=== PATIENT | male | born 1940 | race Two or more races ===

== ENCOUNTER 2016-05-24 14:16 | Outpatient (RCR) | payer MEDICARE, OTHER ==
[~2016-05-24] VITALS: Ht 167.6 cm; Wt 84.4 kg
[~2016-05-24 14:16] MED LIST: ASCORBIC ACID500 MG ORAL; ASPIRIN-LOW81 MG ORAL; CELLCEPT250 MG ORAL; CEPHALEXIN500 MG ORAL; COLACE100 MG ORAL; CYMBALTA30 MG ORAL; Cyproheptadine Hcl ORAL; DIABETA5 MG ORAL; GLYBURIDE5 MG PO; INVANZ1 GM IVPB; JANUVIA50 MG ORAL; LANTUS SOL100 UNIT/1 SUBQ; LANTUS5 UNITS SUBQ; MAGNESIUM100 MG PO; METHENAMINE HIPP1 GM PO; MIRALAX17 G2 ORAL; MULTIVITAMINS1 EAC2 ORAL; PLAVIX75 MG ORAL; PRAVACHOL20 MG ORAL; PROGRAF1 MG ORAL; ZINC SULFATE220 M1 ORAL
--- NOTE | 2016-06-07 18:41 | Consultation ---
History of Present Illness General Date patient seen: Jun 07, 2016 Time patient seen: 15:05 Chief Complaint: UTI, and sacral and ischial decubitus wound Referring physician: lizet Cheema Reason for Consultation: UTI with MDR E coli, and recurrent sacral wound Present Illness HPI Mr Ralph is a 76 y/o male with complicated PMH, who had chronic mason catheter due to neurogenic bladder and chronic sacral and ischial wounds, was recently hospitalized at [facility] for hyperkalemia and worsening renal failure, he was followed by the heart transplant team during his hospitalization, he stayed couple of weeks at the hospital, and his sacral and ischial wounds got worse and bigger, at the time he was discharged home, tuesday he developed fever 100.8 as per his sone, and he had urine analysis and culture which grew MDR E coli, so I was asked by the plastic surgeon for antibiotics recommendation for both his UTI, and recurrent sacral and ischial wounds, with possible underlying osteomyelitis. Allergies: Coded Allergies: ADHESIVE TAPE (Verified Allergy, Unknown, Rash, 05/27/16) PLASTIC TAPE-COPIED FROM UNCODED SECTION PROCAINE (Verified Allergy, Unknown, Rash, 08/19/14) COPIED FRON UNCODED Medication History Scheduled Ascorbic Acid* (Ascorbic Acid*), 500 MG ORAL TWICE A DAY Aspirin (Aspirin EC), 81 MG ORAL DAILY, (Reported) Clopidogrel Bisulfate* (Plavix*), 75 MG ORAL DAILY, (Reported) Docusate Sodium* (Colace*), 100 MG ORAL TID Duloxetine Hcl* (Cymbalta*), 30 MG ORAL DAILY, (Reported) Glyburide* (Diabeta*), 10 MG ORAL BIAC, (Reported) Insulin Glargine (Lantus), 26 SUBQ DA, (Reported) Insulin Glargine (Lantus), 26 ML SUBQ BEDTIME, (Reported) Magnesium Amino Acid Chelate (Magnesium), 200 MG PO BID, (Reported) Methenamine Hippurate (Methenamine Hippurate), 10 MG PO BID, (Reported) Multivitamins* (Multivitamins*), 1 TAB ORAL DAILY Mycophenolate Mofetil (Cellcept), 500 MG ORAL BID, (Reported) Pravastatin Sod* (Pravachol*), 20 MG ORAL BEDTIME, (Reported) Sitagliptin (Januvia), 50 MG ORAL DAILY, (Reported) Tacrolimus (Prograf), 1 MG ORAL BID, (Reported) Zinc Sulfate (Zinc Sulfate*), 220 MG ORAL DAILY [Cyproheptadine Hcl], 4 MG ORAL THREE TIMES A DAY Scheduled PRN Polyethylene Glycol 3350* (Miralax*), 17 GM ORAL HSPRN PRN for Constipation Patient History History Provided By: Family Member Healthcare decision maker Resuscitation status Advanced Directive on File Past Medical/Surgical History Past Medical/Surgical History: (1) Decubital ulcer (2) UTI (lower urinary tract infection) (3) CKD (chronic kidney disease) (4) Diabetic nephropathy (5) Anemia (6) History of heart transplant (7) Status post skin flap graft (8) Leg osteomyelitis, right (9) PVD (peripheral vascular disease) Review of Systems Constitutional: Reports: fever Eye: Denies: acuity changes, blurred vision, discharge, double vision, eye pain , no symptoms, nose congestion, nose pain, other, see HPI, tearing ENT: Denies: ear discharge, ear pain, hearing loss, mouth pain, nasal discharge , no symptoms, nose congestion, nose pain, other, see HPI, throat pain, throat swelling Respiratory: Denies: ORTIZ, cough, no symptoms, orthopnea, other, see HPI, shortness of breath, sputum, stridor, wheezing Cardiovascular: Denies: PND, chest pain, edema, no symptoms, other, palpitations, see HPI, syncope Gastrointestinal: Denies: abdominal pain, constipation, diarrhea, hematemesis, melena, nausea, no symptoms, other, see HPI, vomiting Genitourinary: Reports: dysuria, pain Musculoskeletal: Reports: muscle pain Skin: Reports: other - large sacral and ischial wounds Psychiatric: Denies: HI, SI, anxiety, depressed feelings, emotional problems, hallucinations, no symptoms, other, prior hx, see HPI Neurological: Reports: focal weakness Endocrine: Reports: no symptoms Physical Exam General Appearance: WD/WN, no apparent distress, alert, overweight HEENT: normocephalic, atraumatic, anicteric, mucous membranes moist Neck: non-tender, normal alignment, supple, normal inspection, abnormal alignment Respiratory/Chest: chest wall non-tender, lungs clear, normal breath sounds, no respiratory distress, no accessory muscle use Cardiovascular/Chest: normal peripheral pulses, normal rate, regular rhythm, no gallop/murmur, no JVD Abdomen: normal bowel sounds, non tender, soft, no organomegaly, no mass Genitourinary/Rectal: normal genital exam, mason Extremities: non-tender, no calf tenderness, normal capillary refill Skin Exam: other - large sacral wound stage V with undermining, and left ischial wound too, stage V with exposed bone Assessment/Plan Problem List: (1) UTI (lower urinary tract infection) Assessment & Plan: with MDR E coli sensitive to ceftriaxon, will treat for 7 days with ceftriaxon IM, since E coil is resistant to all oral options ICD Codes: N39.0 - UTI (lower urinary tract infection) SNOMED: [id number] (2) Decubital ulcer Assessment & Plan: recommend surgical debridement and deep bone biopsy for culture, to guide antibiotics therapy and to rule out osteomyelitis, continue aggressive wound care as per plastic surgeon, will follow on the culture results once available. ICD Codes: L89.90 - Decubital ulcer SNOMED: 877511329 Qualifiers: Qualified Codes: L89.94 - Pressure ulcer of unspecified site, stage 4 (3) CKD (chronic kidney disease) Assessment & Plan: recommend to follow up with tower supervisor and to adjust immunosuppressive drugs as per GFR, D/W son at the bedside ICD Codes: N18.9 - Chronic kidney disease, unspecified SNOMED: 939455254 Status: progressing Jose Mott M.D. Jun 07, 2016 18:41
--- NOTE | 2016-06-14 18:59 | Infectious Diseases Prog Note ---
Assessment/Plan Problems: (1) UTI (lower urinary tract infection) Assessment & Plan: with MDR E coli sensitive to ceftriaxon, will treat for 7 days with ceftriaxon IM, since E coil is resistant to all oral options (2) Decubital ulcer Assessment & Plan: bone biopsy culture grew two different species of E coli, ampicillin sensitive enterococcus faecalis, and pseudomonas aeruginosa , his pathology confirmed acute osteomyelitis, so I will treat him with meropenem 1 gm iv q 12 hrs based on his current CRCL for 6 weeks , for his sacral osteomyelitis, meropenem will cover all the isolates from his bone culture , continue aggressive wound care as per plastic surgeon, recommend to follow weekly labs in order to adjust his meropenem dose since his creatinin clerance is 21.38. will adjust his meropenem dose based on his CRCL which will be done weekly . D/W son and at the bedside who agreed to proceed with antibiotics therapy for now. all risks and benefits were explained to them in details. (3) CKD (chronic kidney disease) Assessment & Plan: recommend to follow up with loan examiner and to adjust immunosuppressive drugs as per GFR, D/W son at the bedside Subjective Constitutional: Denies: anorexia, chills, drenching sweats, fatigue, fever, no symptoms, other HEENT: Denies: congestion, coryza, dysphagia, hearing change, no symptoms, other, visual change Respiratory: Denies: dry cough, no symptoms, other, productive cough, shortness of breath Breasts: Denies: discharge, no symptoms, other, swelling, tenderness Cardiovascular: Denies: chest pain, dyspnea on exertion, no symptoms, other, palpitations Gastrointestinal/Abdominal: Denies: bloating, blood in stool, constipation, diarrhea, nausea, no symptoms, other, vomiting Genitourinary: Denies: dysuria, frequency, hematuria, no symptoms, nocturia, other Neurologic: Reports: numbness, weakness Psychiatric: Denies: anxiety, depression, no symptoms, other Skin: Reports: ulcer Endocrine: Denies: feels cold, feels warm, no symptoms, other Hematologic: Denies: bleeding, no symptoms, other, swollen lymph nodes Allergies: Coded Allergies: ADHESIVE TAPE (Verified Allergy, Unknown, Rash, 05/27/16) PLASTIC TAPE-COPIED FROM UNCODED SECTION PROCAINE (Verified Allergy, Unknown, Rash, 08/19/14) COPIED FRON UNCODED Subjective had large sacral and buttock wounds stage IV, no foul smelling or significant drainage Objective General Appearance: WD/WN, no acute distress HEENT: normocephalic, atraumatic, anicteric, mucous membranes moist Respiratory/Chest: chest wall non-tender, lungs clear, normal breath sounds, no respiratory distress, no accessory muscle use Cardiovascular: normal peripheral pulses, normal rate, regular rhythm, no gallop/murmur, no JVD Abdomen: normal bowel sounds, soft, non tender, no organomegaly, non distended , no mass, no scars Extremities: no cyanosis, no clubbing Skin: ulcers Current Medications Medications (Trade) Dose Ordered Sig/Koffi Route PRN Reason Start Time Stop Time Status Last Admin Dose Admin Sodium Hypochlorite (Dakin's Half Strength) 1 applic DAILY TOPIC 06/15/16 09:00 07/15/16 08:59 Jose Mott M.D. Jun 14, 2016 18:59
[2016-06-15] MEDS ORDERED: Dakin's 0.25% (Half Strength) 16oz TOPIC SCH (09:00)
[2016-07-13] MEDS ORDERED: MEROPENEM-1 GM/50 ML IV (14:59)
[2016-07-13] MEDS ORDERED: NORVASC2.5 MG ORAL (14:59)
[2016-07-13] MEDS ORDERED: CUBICIN RF500 MG IV (14:59)
[2016-07-13] MEDS ORDERED: COUMADIN5 MG ORAL (14:59)
[2016-07-13] MEDS ORDERED: LOVENOX10 M4 SUBQ (14:59)
== END 2016-06-15 | disposition home or self-care (01) ==
LOC: WCC 14:16
DX: L89.154 Pressure ulcer of sacral region, stage 4 (principal); L89.224 Pressure ulcer of left hip, stage 4; L89.894 Pressure ulcer of other site, stage 4; M86.18 Other acute osteomyelitis, other site; I70.238 Atherosclerosis of native arteries of right leg with ulceration of other part of lower leg; R22.32 Localized swelling, mass and lump, left upper limb; L89.312 Pressure ulcer of right buttock, stage 2; L89.892 Pressure ulcer of other site, stage 2; Z89.421 Acquired absence of other right toe(s); Z94.1 Heart transplant status; Z89.612 Acquired absence of left leg above knee; E11.9 Type 2 diabetes mellitus without complications
CPT/HCPCS: 11043; 11044; 11046; 11047; 20245; 87070; 87181; 87205

== ENCOUNTER → 2016-06-14 | Outpatient (CLI) | payer MEDICARE, OTHER ==
[~2016-06-14] VITALS: Ht 30.5 cm; Wt 0.5 kg
[~2016-06-14] MED LIST changes: +BENICAR HCT 401 EACH ORAL; +COUMADIN5 MG ORAL; +CUBICIN RF500 MG IV; +DULCOLAX10 MG RC; +EPOGEN20000 UNI1 SUBQ; +FERROUS SULFAT325 MG ORAL; +HIPREX1 GM PO; +JANUVIA25 MG ORAL; +LOVENOX10 M4 SUBQ; +Lidocaine 1% Plain 30 ml INJ PRN; +MEROPENEM-1 GM/50 ML IV; +MEROPENEM1 GM IV; +MIRTAZAPINE15 M3 ORAL; +NORVASC2.5 MG ORAL; +Sodium Bicarbonate 8.4% 50ml Inj IV PRN; +VENTOLIN HFA18 GM INH
--- NOTE | 2016-06-14 16:07 | Diagnostic Imaging Report ---
Indications: Needs long-term IV access Technique: Ultrasound confirms patent compressible brachial vein. Total sterile technique, including sterile probe cover and sterile gel, hat, mask,, sterile gown, large sterile drape, and preparation with 2% chlorhexidine utilized. Local anesthesia with 1% lidocaine. Under real-time ultrasound guidance, puncture brachial vein using 21-gauge needle, documented and archived, passage 0.018 guidewire under direct fluoroscopy, which was used to determine appropriate catheter length, exchange for 5 Tajik peel-away sheath. 5 Taj[place] Bard dual-lumen power PICC cut to 44 cm. It was inserted through the peel-away sheath. Peel-away sheath and guidewire removed. Catheter fixed to the skin. Both catheter ports aspirated and flushed. Patient tolerated procedure well, without immediate complication. Digital radiograph documents satisfactory catheter tip position, at the cavoatrial junction. Total fluoroscopy time 0.5 minutes. Total dose area product 9.9 dGycm2 Impression: Successful placement of left PICC under sonographic and fluoroscopic guidance, as described above.
== END | disposition home or self-care (01) ==
LOC: RAD 13:19
DX: L08.9 Local infection of the skin and subcutaneous tissue, unspecified (principal); Z79.899 Other long term (current) drug therapy
CPT/HCPCS: 36569; 76937; J2001; J3490

== ENCOUNTER 2016-06-17 18:02 | Inpatient (IN) | payer MEDICARE, OTHER ==
[~2016-06-17] VITALS: Ht 172.7 cm; Wt 87.5 kg
[~2016-06-17 18:02] MED LIST changes: -BENICAR HCT 401 EACH ORAL; -COUMADIN5 MG ORAL; -CUBICIN RF500 MG IV; -DULCOLAX10 MG RC; -EPOGEN20000 UNI1 SUBQ; -FERROUS SULFAT325 MG ORAL; -HIPREX1 GM PO; -JANUVIA25 MG ORAL; -LOVENOX10 M4 SUBQ; -Lidocaine 1% Plain 30 ml INJ PRN; -MEROPENEM-1 GM/50 ML IV; -MEROPENEM1 GM IV; -MIRTAZAPINE15 M3 ORAL; -NORVASC2.5 MG ORAL; -Sodium Bicarbonate 8.4% 50ml Inj IV PRN; -VENTOLIN HFA18 GM INH
[2016-06-17 18:58] VITALS: BP 93/52
[2016-06-17 19:21] LABS: MEAN CORPUSCULAR HEMOGLOBIN 28.6 PG (27.0-31.0); MEAN CORPUSCULAR HGB CONC 29.1 G/DL (32.0-36.0); MEAN CORPUSCULAR VOLUME 98 FL (80-99); MEAN PLATELET VOLUME 4.9 FL (6.5-10.1); PLATELET COUNT 321 K/UL (150-450); RED BLOOD COUNT 2.37 M/UL (4.70-6.10); RED CELL DISTRIBUTION WIDTH 17.5 % (11.6-14.8); WHITE BLOOD COUNT 10.1 K/UL (4.8-10.8)
[2016-06-17 19:45] LABS: PROTHROMBIN TIME 10.1 SEC (9.30-11.50)
[2016-06-17 19:57] LABS: TROPONIN I < 0.30 ng/mL (<=0.30)
[2016-06-17 19:59] LABS: ALANINE AMINOTRANSFERASE 16 U/L (3-41); ALBUMIN/GLOBULIN RATIO 1.1 (1.0-2.7); ANION GAP 21 (5-15); ASPARTATE AMINO TRANSFERASE 15 U/L (5-40); CALCIUM 8.4 mg/dL (8.6-10.2); CARBON DIOXIDE 12 mEQ/L (20-30); CHLORIDE 105 mEQ/L (98-107); CREATININE 3.8 mg/dL (0.7-1.2); HEMOLYSIS 2; SODIUM 138 mEQ/L (135-145); TOTAL PROTEIN 5.5 g/dL (6.6-8.7)
[2016-06-17 20:04] LABS: CKMB 3.3 ng/mL (< 6.7)
[2016-06-17 20:07] LABS: POTASSIUM 6.3 mEQ/L (3.4-4.9)
[2016-06-17] MEDS ORDERED: Sodium Polystyrene Sulfonate 15gm Powder ORAL ONE (20:15)
[2016-06-17 20:27] LABS: BASOPHILS % (MANUAL) 1 % (0-2); LYMPHOCYTES % (MANUAL) 16 % (20-45); NEUTROPHILS % (MANUAL) 83 % (45-75); TOTAL CELLS COUNTED 100
[2016-06-17 20:28] LABS: BAND NEUTROPHILS % (MANUAL) 0 % (0-8); EOSINOPHILS % (MANUAL) 0 % (0-3); HYPOCHROMASIA 2+; MACROCYTES 1+; PLATELET ESTIMATE ADEQUATE; PLATELET MORPHOLOGY NORMAL; POLYCHROMASIA 1+
[2016-06-17 20:29] LABS: ANISOCYTOSIS 2+
[2016-06-17 21:35] VITALS: BP 124/63
[2016-06-17 21:50] VITALS: BP 114/57
[2016-06-17] MEDS ORDERED: Miralax 17gm pkt ORAL PRN (22:30)
[2016-06-17] MEDS ORDERED: Morphine Sulfate 2mg/ml Inj IVP PRN (22:30)
[2016-06-17] MEDS ORDERED: Zolpidem 5mg tab ORAL PRN (22:30)
[2016-06-17] MEDS ORDERED: Mylanta II UD 30ml ORAL PRN (22:30)
--- NOTE | 2016-06-17 22:35 | Emergency Room Report ---
History of Present Illness General Chief Complaint: Abnormal Labs Source: Patient, Family Member Present Illness HPI 76-year-old male presents ED for evaluation. Family is at bedside states that patient was sent for abnormal labs. Had blood drawn yesterday at home. Patient has PICC line in place and is receiving antibiotics at home for treatment of osteomyelitis. Patient was told that his potassium was high his creatinine was high at his hemoglobin was low. Patient denies any complaints at this time. Denies any chest pain shortness of breath. Denies any fevers or chills. Denies any pain. No other aggravating relieving factors. Denies any other associated symptoms Allergies: Coded Allergies: ADHESIVE TAPE (Verified Allergy, Unknown, Rash, 05/27/16) PLASTIC TAPE-COPIED FROM UNCODED SECTION PROCAINE (Verified Allergy, Unknown, Rash, 08/19/14) COPIED FRON UNCODED Patient History Past Medical History: DM, HTN, ND, asthma, other - osteomyelitis Past Surgical History: none Pertinent Family History: none Social History: Denies: alcohol use, drug use, smoking Immunizations: UTD Reviewed Nursing Documentation: PMH: Agreed, PSxH: Agreed Nursing Documentation-PMH Hx Cardiac Problems: Yes - HEART TRANSPLANT, MULTIPLE BIPASS, DOUBLE AMPUTEE Hx Hypertension: Yes 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 Hx Asthma: Yes Hx Diabetes: Yes Hx Cancer: No Hx Gastrointestinal Problems: Yes Hx Neurological Problems: Yes Review of Systems All Other Systems: negative except mentioned in HPI Physical Exam Vital Signs Date Time Temp Pulse Resp B/P Pulse Ox O2 Delivery O2 Flow Rate FiO2 06/17/16 18:01 70 18 130/60 06/17/16 18:58 97.0 100 Room Air Sp02 EP Interpretation: reviewed, normal General Appearance: no apparent distress, alert, GCS 15, non-toxic, obese Head: normocephalic, atraumatic Eyes: bilateral eye PERRL, bilateral eye normal inspection ENT: hearing grossly normal, normal pharynx, no angioedema, normal voice Neck: full range of motion, supple/symm/no masses Respiratory: chest non-tender, lungs clear, normal breath sounds, speaking full sentences Cardiovascular #1: regular rate, rhythm, no edema Cardiovascular #2: 2+ carotid (R), 2+ carotid (L), 2+ radial (R), 2+ radial (L) , 2+ dorsalis pedis (R), 2+ dorsalis pedis (L) Gastrointestinal: normal bowel sounds, non tender, soft, non-distended, no guarding, no rebound Rectal: deferred Genitourinary: normal inspection, no CVA tenderness Musculoskeletal: back normal, gait/station normal, normal range of motion, non- tender Neurologic: alert, oriented x3, responsive, motor strength/tone normal, sensory intact, speech normal Psychiatric: judgement/insight normal, memory normal, mood/affect normal, no suicidal/homicidal ideation Reflexes: 3+ bicep (R), 3+ bicep (L), 3+ tricep (R), 3+ tricep (L), 3+ knee (R) , 3+ knee (L) Skin: normal color, no rash, warm/dry, well hydrated Lymphatic: no adenopathy Procedures Critical Care Time Critical Care Time i. I feel this is a highly complex case requiring extensive working including EKG/Rhythm strip, Xray/CT/US, Blood/urine lab work, repeat exams while in ED, and administration of strong opiates/narcotics for pain control, admission to hospital or close patient follow up. Total time: 30 min bedside evaluation and treatment excludes procedures (EKG). Reason for critical care: Anemia, hyperkalemia Possible complications: hypotension, hypertension, ND, shock, arrhythmias, metabolic acidosis, end organ damage, respiratory failure. Interventions: Labs, EKG, chest x-ray. Insulin/D50. PRBCs transfusion Course: Patient sent for abnormal labs. Potassium is 6.3, creatinine is 3.8, hemoglobin is 6.8. Patient given insulin/D50. PRBCs ordered. Consultations: nursing staff, EMS, family Performed by: Dr Hamlin Tolerated well condition = serious j. because of unstable vital signs this patient had a condition that could potentially threaten life or limb. I feel this is a critical patient who required my full attention while patient was considered critical. Total Critical Care Time excluding procedures was greater than 35 minutes Medical Decision Making Diagnostic Impression: Primary Impression: Hyperkalemia, diminished renal excretion Additional Impressions: ARF (acute renal failure) Qualified Codes: N17.9 - Acute kidney failure, unspecified Anemia Qualified Codes: D64.9 - Anemia, unspecified ER Course Hospital Course 76-year-old male referred to ED for abnormal labs. Differential diagnoses include: anemia, ARF, hyperkalemia Clinical course Patient placed on stretcher. After initial history and physical I ordered labs including CBC and type and screen. Labs- hemoglobin 6.8, Cr 3.8, K 6.3. EKG no ischemic changes no evidence of hyperkalemia Chest [id number] wires no acute process Patient given insulin/D50. Patient refused Kayexalate. PRBCs ordered and started and emergency room Case discussed with PMD Dr. Hahn and agreed to admit the patient Diagnosis - hyperkalemia, ARF, anemia Admitted to telemetry in serious condition Labs Test 06/17/16 18:45 White Blood Count 10.1 K/UL (4.8-10.8) Red Blood Count 2.37 M/UL (4.70-6.10) Hemoglobin 6.8 G/DL (14.2-18.0) Hematocrit 23.3 % (42.0-52.0) Mean Corpuscular Volume 98 FL (80-99) Mean Corpuscular Hemoglobin 28.6 PG (27.0-31.0) Mean Corpuscular Hemoglobin Concent 29.1 G/DL (32.0-36.0) Red Cell Distribution Width 17.5 % (11.6-14.8) Platelet Count 321 K/UL (150-450) Mean Platelet Volume 4.9 FL (6.5-10.1) Neutrophils (%) (Auto) % (45.0-75.0) Lymphocytes (%) (Auto) % (20.0-45.0) Monocytes (%) (Auto) % (1.0-10.0) Eosinophils (%) (Auto) % (0.0-3.0) Basophils (%) (Auto) % (0.0-2.0) Differential Total Cells Counted 100 Neutrophils % (Manual) 83 % (45-75) Lymphocytes % (Manual) 16 % (20-45) Monocytes % (Manual) 0 % (1-10) Eosinophils % (Manual) 0 % (0-3) Basophils % (Manual) 1 % (0-2) Band Neutrophils 0 % (0-8) Platelet Estimate Adequate Platelet Morphology Normal Polychromasia 1+ Hypochromasia 2+ Anisocytosis 2+ Macrocytosis 1+ Prothrombin Time 10.1 SEC (9.30-11.50) Prothromb Time International Ratio 1.0 (0.9-1.1) Activated Partial Thromboplast Time 37 SEC (23-33) Sodium Level 138 mEQ/L (135-145) Potassium Level 6.3 mEQ/L (3.4-4.9) Chloride Level 105 mEQ/L (98-107) Carbon Dioxide Level 12 mEQ/L (20-30) Anion Gap 21 (5-15) Blood Urea Nitrogen 83 mg/dL (7-23) Creatinine 3.8 mg/dL (0.7-1.2) Estimat Glomerular Filtration Rate mL/min (>60) Glucose Level 184 mg/dL (74-106) Calcium Level 8.4 mg/dL (8.6-10.2) Total Bilirubin < 0.2 mg/dL (0.0-1.2) Aspartate Amino Transf (AST/SGOT) 15 U/L (5-40) Alanine Aminotransferase (ALT/SGPT) 16 U/L (3-41) Alkaline Phosphatase 98 U/L (40-129) Total Creatine Kinase 154 U/L (38-174) Creatine Kinase MB 3.3 ng/mL (< 6.7) Creatine Kinase MB Relative Index 2.1 Troponin I < 0.30 ng/mL (<=0.30) Total Protein 5.5 g/dL (6.6-8.7) Albumin 2.9 g/dL (3.5-5.2) Globulin 2.6 g/dL Albumin/Globulin Ratio 1.1 (1.0-2.7) EKG Diagnostic Results Rate: normal Rhythm: NSR ST Segments: no acute changes ASA given to the pt in ED: No Rhythm Strip Diag. Results EP Interpretation: yes Rhythm: NSR, no PVC's, no ectopy Chest X-Ray Diagnostic Results EP Interpretation: Yes Findings: no consolidation, no effusion, no pneumothorax, no acute cardiopulmonary disease, other - sternotomy wires Number of Views: 1 Last Vital Signs Date Time Temp Pulse Resp B/P Pulse Ox O2 Delivery O2 Flow Rate FiO2 06/17/16 21:50 97.4 89 24 114/57 97 Room Air Status: improved Disposition: ADMITTED INPATIENT Condition: Serious Referrals: SHWETA SARKAR MD (PCP) ZENA HAMLIN M.D. Jun 17, 2016 22:35
[2016-06-18] VITALS: BP 122/69
[2016-06-18] MEDS ORDERED: DULCOLAX10 MG RC (00:57)
[2016-06-18] MEDS ORDERED: MIRTAZAPINE15 M3 ORAL (00:57)
[2016-06-18] MEDS ORDERED: MEROPENEM1 GM IV (00:57)
[2016-06-18] MEDS ORDERED: EPOGEN20000 UNI1 SUBQ (00:57)
[2016-06-18] MEDS ORDERED: VENTOLIN HFA18 GM INH (00:57)
[2016-06-18] MEDS ORDERED: JANUVIA25 MG ORAL (00:57)
[2016-06-18] MEDS ORDERED: FERROUS SULFAT325 MG ORAL (00:57)
[2016-06-18] MEDS ORDERED: BENICAR HCT 401 EACH ORAL (00:57)
[2016-06-18] MEDS ORDERED: HIPREX1 GM PO (00:57)
[2016-06-18 04:30] VITALS: BP 106/70
[2016-06-18] MEDS: NovoLOG Insulin Flexpen SUBQ SCH ×4 (06:30→21:22)
[2016-06-18 07:06] LABS: APPEARANCE,URINE CLOUDY; KETONES,URINE NEGATIVE (NEGATIVE); LEUKOCYTE ESTERASE ,URINE 2+ (NEGATIVE); NITRITE,URINE NEGATIVE (NEGATIVE); PH,URINE 5 (4.5-8.0); PROTEIN,URINE 2+ (NEGATIVE); UROBILINOGEN,URINE NORMAL MG/DL (0.0-1.0)
[2016-06-18 07:23] LABS: BACTERIA,URINE FEW /HPF; SQUAMOUS EPITHELIAL CELL,UR FEW /LPF (NONE/OCC); WBC,URINE 20-30 /HPF (0 - 0)
[2016-06-18 07:38] LABS: MEAN CORPUSCULAR HEMOGLOBIN 28.6 PG (27.0-31.0); MEAN CORPUSCULAR HGB CONC 30.3 G/DL (32.0-36.0); MEAN CORPUSCULAR VOLUME 94 FL (80-99); MEAN PLATELET VOLUME 5.5 FL (6.5-10.1); PLATELET COUNT 290 K/UL (150-450); RED BLOOD COUNT 2.73 M/UL (4.70-6.10); RED CELL DISTRIBUTION WIDTH 16.4 % (11.6-14.8); WHITE BLOOD COUNT 8.8 K/UL (4.8-10.8)
[2016-06-18 08:19] LABS: LACTATE DEHYDROGENASE 179 U/L (135-230); PHOSPHORUS 5.2 mg/dL (2.5-4.8); URIC ACID 7.3 mg/dL (3.0-7.5)
[2016-06-18 08:21] LABS: FREE T3 1.9 pg/mL (2.3-4.2)
[2016-06-18 08:24] LABS: ALANINE AMINOTRANSFERASE 15 U/L (3-41); ALBUMIN/GLOBULIN RATIO 1.1 (1.0-2.7); ANION GAP 20 (5-15); ASPARTATE AMINO TRANSFERASE 14 U/L (5-40); CALCIUM 8.5 mg/dL (8.6-10.2); CARBON DIOXIDE 13 mEQ/L (20-30); CHLORIDE 109 mEQ/L (98-107); CREATININE 3.7 mg/dL (0.7-1.2); HEMOLYSIS 10; SODIUM 142 mEQ/L (135-145); TOTAL PROTEIN 5.3 g/dL (6.6-8.7)
[2016-06-18 08:25] LABS: POTASSIUM 6.2 mEQ/L (3.4-4.9)
[2016-06-18 08:27] VITALS: BP 97/65
[2016-06-18] MEDS: Mycophenolate 250mg cap ORAL SCH ×2 (08:28→18:22)
[2016-06-18 08:48] LABS: HEMOLYSIS 11; IRON 36 ug/dL (59-158); TOTAL IRON BINDING CAPACITY 149 ug/dL (250-400)
[2016-06-18 08:50] LABS: ERYTHROCYTE SEDIMENTATION RATE 125 MM/HR (0-20)
[2016-06-18 09:04] LABS: ANISOCYTOSIS 1+; BAND NEUTROPHILS % (MANUAL) 0 % (0-8); BASOPHILS % (MANUAL) 0 % (0-2); EOSINOPHILS % (MANUAL) 2 % (0-3); HYPOCHROMASIA 1+; LYMPHOCYTES % (MANUAL) 4 % (20-45); NEUTROPHILS % (MANUAL) 88 % (45-75); PLATELET ESTIMATE ADEQUATE; PLATELET MORPHOLOGY NORMAL; TOTAL CELLS COUNTED 100
--- NOTE | 2016-06-18 09:50 | Diagnostic Imaging Report ---
Indication: Chest pain Technique: One view of the chest Comparison: 07/14/2015 Findings: Lungs and pleural spaces are clear. Calcified granuloma is again demonstrated the left lung base. Left arm PICC is present. Prior CABG Impression: No acute process. Findings as noted This agrees with the preliminary interpretation provided by the emergency room physician
--- NOTE | 2016-06-18 10:19 | History and Physical ---
History of Present Illness General Date patient seen: Jun 18, 2016 Time patient seen: 09:00 Reason for Hospitalization: Abnormal Labs Present Illness HPI 76-year-old male presented to ED for evaluation due to abnormal labs ( anemia, hyperkalemia) patient had blood drwan at home by home health nursing and foudn abnormal resulrts , thus aptietnw as sent for evlaution patient has PICC lien for treatment of osteomyelitis In ER found HH 6.8/23.3 K-6.3 BUN/Creat -83/3.8 patient was given Kayexalate , ordered blood transfusion, given 1 L of fluids and was transferred to [facility] for further management patient with underlying history of heart transplant, DM, PVF, bilateral amputee patents denies chest pain, SOB, palpitations dizziness no n/v/no abdominal pain no fevers, no chills no burning on urination, no difficulties with urination, UA with pyuria, but no bacteria Allergies: Coded Allergies: ADHESIVE TAPE (Verified Allergy, Unknown, Rash, 05/27/16) PLASTIC TAPE-COPIED FROM UNCODED SECTION PROCAINE (Verified Allergy, Unknown, Rash, 08/19/14) COPIED FRON UNCODED Medication History Scheduled Ascorbic Acid* (Ascorbic Acid*), 500 MG ORAL TWICE A DAY Aspirin (Aspirin EC), 81 MG ORAL DAILY, (Reported) Clopidogrel Bisulfate* (Plavix*), 75 MG ORAL DAILY, (Reported) Duloxetine Hcl* (Cymbalta*), 30 MG ORAL DAILY, (Reported) Epoetin Mars (Epogen), 20,000 UNIT SUBQ 2XW, (Reported) Ferrous Sulfate* (Ferrous Sulfate*), 325 MG ORAL DAILY, (Reported) Glyburide* (Diabeta*), 10 MG ORAL BIAC, (Reported) Insulin Glargine (Lantus), 26 SUBQ DA, (Reported) Insulin Glargine (Lantus), 26 ML SUBQ BEDTIME, (Reported) Magnesium Amino Acid Chelate (Magnesium), 200 MG PO BID, (Reported) Meropenem (Meropenem), 2 GM IV BID, (Reported) Methenamine Hippurate (Methenamine Hippurate), 10 MG PO BID, (Reported) Methenamine Hippurate (Hiprex), 1 GM PO BID, (Reported) Mirtazapine* (Mirtazapine*), 15 MG ORAL BEDTIME, (Reported) Multivitamins* (Multivitamins*), 1 TAB ORAL DAILY Mycophenolate Mofetil (Cellcept), 500 MG ORAL BID, (Reported) Olmesartan/Hydrochlorothiazide 40-12.5MG (Benicar Hct 40-12.5 Mg Tablet), 1 TAB ORAL BID, (Reported) Pravastatin Sod* (Pravachol*), 20 MG ORAL BEDTIME, (Reported) Sitagliptin (Januvia), 50 MG ORAL DAILY, (Reported) Sitagliptin* (Januvia*), 50 MG ORAL DAILY, (Reported) Tacrolimus (Prograf), 1 MG ORAL BID, (Reported) Zinc Sulfate (Zinc Sulfate*), 220 MG ORAL DAILY [Cyproheptadine Hcl], 4 MG ORAL THREE TIMES A DAY Scheduled PRN Albuterol Sulfate (Ventolin Hfa), 2 PUFFS INH EVERY 6 HOURS PRN for Shortness of Breath, (Reported) Bisacodyl (Dulcolax), 10 MG RC for Constipation, (Reported) Polyethylene Glycol 3350* (Miralax*), 17 GM ORAL HSPRN PRN for Constipation Discontinued Medications Docusate Sodium* (Colace*), 100 MG ORAL TID Discontinued Reason: Medication dose changed Patient History Healthcare decision maker Resuscitation status Full Code Advanced Directive on File Past Medical/Surgical History Past Medical/Surgical History: (1) CKD (chronic kidney disease) (2) PVD (peripheral vascular disease) (3) Diabetic nephropathy (4) CKD (chronic kidney disease) (5) Acute blood loss anemia (6) Hyperkalemia, diminished renal excretion (7) Anemia (8) Heart transplant status (9) Status post skin flap graft Review of Systems Constitutional: Reports: no symptoms Eye: Reports: no symptoms ENT: Reports: no symptoms Respiratory: Reports: no symptoms Cardiovascular: Reports: no symptoms, other - hx of heart transplant , PVD Gastrointestinal: Reports: constipation Genitourinary: Reports: see HPI Musculoskeletal: Reports: other - bilateral amputee Skin: Reports: other - decub, osteo Psychiatric: Reports: no symptoms Neurological: Reports: no symptoms Endocrine: Reports: other - diabetes Hematologic/Lymphatic: Reports: anemia, see HPI Physical Exam General Appearance: no apparent distress, alert Lines, tubes and drains: PICC HEENT: normocephalic, atraumatic, anicteric, mucous membranes moist Neck: non-tender, supple Respiratory/Chest: chest wall non-tender, lungs clear, no respiratory distress , no accessory muscle use Cardiovascular/Chest: normal rate - SR on tele, regular rhythm Abdomen: normal bowel sounds, non tender, soft - obese Genitourinary/Rectal: mason Extremities: other - 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 Skin Exam: other Neurologic: abnormal gait - bedridden, alert, oriented x 3, responsive Musculoskeletal: other - bilateral amputee Last 24 Hour Vital Signs Date Time Temp Pulse Resp B/P Pulse Ox O2 Delivery O2 Flow Rate FiO2 06/18/16 08:27 97.0 87 18 97/65 96 Room Air 06/18/16 04:30 97.0 98 20 106/70 97 Room Air 06/18/16 00:00 97.0 91 20 122/69 96 Room Air 06/18/16 00:00 84 06/17/16 22:40 97.4 89 24 114/57 97 Room Air 06/17/16 21:50 97.4 89 24 114/57 97 Room Air 06/17/16 21:35 97.0 89 17 124/63 99 Room Air 06/17/16 18:58 97.0 90 15 93/52 100 Room Air 06/17/16 18:01 70 18 130/60 Intake and Output 06/17/16 06/18/16 19:00 07:00 Intake Total 100 ml 1120 ml Output Total 850 ml Balance 100 ml 270 ml Intake Oral 100 ml 120 ml IV Total 750 ml Blood Product 250 ml Output Urine Total 850 ml Laboratory Tests Test 06/17/16 18:45 06/18/16 04:00 06/18/16 06:00 White Blood Count 10.1 K/UL (4.8-10.8) 8.8 K/UL (4.8-10.8) Red Blood Count 2.37 M/UL (4.70-6.10) L 2.73 M/UL (4.70-6.10) L Hemoglobin 6.8 G/DL (14.2-18.0) *L 7.8 G/DL (14.2-18.0) L Hematocrit 23.3 % (42.0-52.0) L 25.8 % (42.0-52.0) L Mean Corpuscular Volume 98 FL (80-99) 94 FL (80-99) Mean Corpuscular Hemoglobin 28.6 PG (27.0-31.0) 28.6 PG (27.0-31.0) Mean Corpuscular Hemoglobin Concent 29.1 G/DL (32.0-36.0) L 30.3 G/DL (32.0-36.0) L Red Cell Distribution Width 17.5 % (11.6-14.8) H 16.4 % (11.6-14.8) H Platelet Count 321 K/UL (150-450) 290 K/UL (150-450) Mean Platelet Volume 4.9 FL (6.5-10.1) L 5.5 FL (6.5-10.1) L Neutrophils (%) (Auto) % (45.0-75.0) % (45.0-75.0) Lymphocytes (%) (Auto) % (20.0-45.0) % (20.0-45.0) Monocytes (%) (Auto) % (1.0-10.0) % (1.0-10.0) Eosinophils (%) (Auto) % (0.0-3.0) % (0.0-3.0) Basophils (%) (Auto) % (0.0-2.0) % (0.0-2.0) Differential Total Cells Counted 100 100 Neutrophils % (Manual) 83 % (45-75) H 88 % (45-75) H Lymphocytes % (Manual) 16 % (20-45) L 4 % (20-45) L Monocytes % (Manual) 0 % (1-10) L 6 % (1-10) Eosinophils % (Manual) 0 % (0-3) 2 % (0-3) Basophils % (Manual) 1 % (0-2) 0 % (0-2) Band Neutrophils 0 % (0-8) 0 % (0-8) Platelet Estimate Adequate Adequate Platelet Morphology Normal Normal Polychromasia 1+ Hypochromasia 2+ 1+ Anisocytosis 2+ 1+ Macrocytosis 1+ Prothrombin Time 10.1 SEC (9.30-11.50) Prothromb Time International Ratio 1.0 (0.9-1.1) Activated Partial Thromboplast Time 37 SEC (23-33) H Sodium Level 138 mEQ/L (135-145) 142 mEQ/L (135-145) Potassium Level 6.3 mEQ/L (3.4-4.9) *H 6.2 mEQ/L (3.4-4.9) *H Chloride Level 105 mEQ/L (98-107) 109 mEQ/L (98-107) H Carbon Dioxide Level 12 mEQ/L (20-30) L 13 mEQ/L (20-30) L Anion Gap 21 (5-15) H 20 (5-15) H Blood Urea Nitrogen 83 mg/dL (7-23) H 77 mg/dL (7-23) H Creatinine 3.8 mg/dL (0.7-1.2) H 3.7 mg/dL (0.7-1.2) H Estimat Glomerular Filtration Rate mL/min (>60) mL/min (>60) Glucose Level 184 mg/dL (74-106) H 54 mg/dL (74-106) #L Calcium Level 8.4 mg/dL (8.6-10.2) L 8.5 mg/dL (8.6-10.2) L Total Bilirubin < 0.2 mg/dL (0.0-1.2) < 0.2 mg/dL (0.0-1.2) Aspartate Amino Transf (AST/SGOT) 15 U/L (5-40) 14 U/L (5-40) Alanine Aminotransferase (ALT/SGPT) 16 U/L (3-41) 15 U/L (3-41) Alkaline Phosphatase 98 U/L (40-129) 88 U/L (40-129) Total Creatine Kinase 154 U/L (38-174) 115 U/L (38-174) Creatine Kinase MB 3.3 ng/mL (< 6.7) Creatine Kinase MB Relative Index 2.1 Troponin I < 0.30 ng/mL (<=0.30) Total Protein 5.5 g/dL (6.6-8.7) L 5.3 g/dL (6.6-8.7) L Albumin 2.9 g/dL (3.5-5.2) L 2.8 g/dL (3.5-5.2) L Globulin 2.6 g/dL 2.5 g/dL Albumin/Globulin Ratio 1.1 (1.0-2.7) 1.1 (1.0-2.7) Urine Color Pale yellow Urine Appearance Cloudy Urine pH 5 (4.5-8.0) Urine Specific [place] 1.015 (1.005-1.035) Urine Protein 2+ (NEGATIVE) H Urine Glucose (UA) Negative (NEGATIVE) Urine Ketones Negative (NEGATIVE) Urine Occult Blood 3+ (NEGATIVE) H Urine Nitrite Negative (NEGATIVE) Urine Bilirubin Negative (NEGATIVE) Urine Urobilinogen Normal MG/DL (0.0-1.0) Urine Leukocyte Esterase 2+ (NEGATIVE) H Urine RBC 5-10 /HPF (0 - 0) H Urine WBC 20-30 /HPF (0 - 0) H Urine Squamous Epithelial Cells Few /LPF (NONE/OCC) Urine Bacteria Few /HPF (NONE) Urine Eosinophils None seen Urine Osmolality Pending Urine Random Sodium 87 mmol/L Urine Random Chloride 64 mmol/L Urine Potassium Timed 18 mmol/L Erythrocyte Sedimentation Rate 125 MM/HR (0-20) H Reticulocyte Count Pending Plasma/Serum Osmolality Pending Uric Acid 7.3 mg/dL (3.0-7.5) Phosphorus Level 5.2 mg/dL (2.5-4.8) H Magnesium Level 2.0 mg/dL (1.7-2.5) Iron Level 36 ug/dL (59-158) L Total Iron Binding Capacity 149 ug/dL (250-400) L Percent Iron Saturation 24 % (15-50) Unsaturated Iron Binding 113 ug/dL (112-346) Lactate Dehydrogenase 179 U/L (135-230) Carcinoembryonic Antigen 4.0 ng/mL H Vitamin B12 Level 474 pg/mL (211-946) Folate Pending Thyroid Stimulating Hormone (TSH) 3.080 uIU/mL (0.300-4.500) Free Thyroxine 0.88 ng/dL (0.86-1.85) Free Triiodothyronine 1.9 pg/mL (2.3-4.2) L Cortisol Pending Height (Feet): 5 Height (Inches): 8.00 Weight (Pounds): 193 Medications Current Medications Medications (Trade) Dose Ordered Sig/Koffi Route PRN Reason Start Time Stop Time Status Last Admin Dose Admin Acetaminophen (Tylenol) 650 mg Q4H PRN ORAL fever 06/17/16 22:30 07/17/16 22:29 Al Hydroxide/Mg Hydroxide (Mylanta II) 30 ml Q6H PRN ORAL dyspepsia 06/17/16 22:30 07/17/16 22:29 Clopidogrel Bisulfate (Plavix) 75 mg DAILY ORAL 06/18/16 09:00 07/18/16 08:59 06/18/16 08:28 Dextrose (Dextrose 50%) STAT PRN IV Hypoglycemia 06/17/16 22:30 07/17/16 22:29 Insulin Aspart (NovoLOG) BEFORE MEALS AND HS SUBQ 06/18/16 06:30 07/18/16 06:29 Lorazepam (Ativan 2mg/ml 1ml) 0.5 mg Q4H PRN IV For Anxiety 06/17/16 22:30 06/24/16 22:29 Morphine Sulfate (Morphine Sulfate) 1 mg EVERY 4 HOURS PRN IVP For Pain 06/17/16 22:30 06/24/16 22:29 Mycophenolate Mofetil (Cellcept) 500 mg BID ORAL 06/18/16 09:00 07/18/16 08:59 06/18/16 08:28 Ondansetron HCl (Zofran) 4 mg Q6H PRN IVP Nausea & Vomiting 06/17/16 22:30 07/17/16 22:29 Polyethylene Glycol (Miralax) 17 gm HSPRN PRN ORAL Constipation 06/17/16 22:30 07/17/16 22:29 Sodium Polystyrene Sulfonate (Kayexalate) 30 gm ONCE ONCE ORAL 06/18/16 10:30 06/18/16 10:31 Tacrolimus (Prograf) 1 mg BID ORAL 06/18/16 09:00 07/18/16 08:59 06/18/16 08:28 Zolpidem Tartrate (Ambien) 5 mg HSPRN PRN ORAL Insomnia 06/17/16 22:30 07/17/16 22:29 Assessment/Plan Status Narrative ASSESSMENT acute renal failure on chronic kidney disease hyperkalemia acute anemia osteomyelitis DM CAD, s/p heart transplant PVD bilateral amputee PLAN OF CARE tele nephro eval renal US avoid nephrotoxic treat hyperkalemia transfuse additional 1 u PRBC today anemia workup with low iron Venofer x 3 doses, starting tomorrow check stool OB, CEA with mild elevation ID eval and resume abx for osteo wound care plastic surgery to follow pain management bowel regimen BS management with SS of insulin continue Plavix DVT prophylaxis case discussed and evaluated by supervising physician Winston Gannon),Alyssa RODRIGUEZ Jun 18, 2016 10:19
[2016-06-18] MEDS ORDERED: Sodium Polystyrene Sulfonate 15gm Powder ORAL ONE (10:30)
[2016-06-18] MEDS ORDERED: Meropenem 1 GM in NS 110 ML IVPB SCH (10:45)
[2016-06-18 11:09] LABS: PATH BLOOD SMEAR/OMC SENT TO PATHOLOGIST
[2016-06-18 11:18] LABS: RETICULOCYTE COUNT 1.6 % (0.0-2.0)
[2016-06-18 12:00] VITALS: BP 104/79
--- NOTE | 2016-06-18 12:49 | Diagnostic Imaging Report ---
Indication: Abnormal renal function tests Technique: Grayscale and duplex images of the kidneys, retroperitoneum, and bladder were obtained. Comparison:01/22/2015 Findings: Right kidney measures 12.4 cm in length. Left kidney measures 12.7 cm in length. Both kidneys demonstrate normal echogenicity. No hydronephrosis. There are bilateral renal cysts.. Normal inferior vena cava. Bladder is empty, contains a Barakat catheter. No significant change Impression: Negative for hydronephrosis Bilateral renal cysts, also previously described Empty bladder, containing a Barakat catheter.
--- NOTE | 2016-06-18 13:03 | Infectious Diseases Prog Note ---
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 continue local wound care , and off loading. (2) Hyperkalemia, diminished renal excretion Assessment & Plan: due to CKD, on Kayexalate, renal is following (3) Anemia Assessment & Plan: S/P blood transfusion, monitor H&H, need to rule out GI source, recommend GI consult. (4) PVD (peripheral vascular disease) Assessment & Plan: S/P B/L AKA. (5) CKD (chronic kidney disease) Assessment & Plan: avoid nephrotoxic meds, monitor UOP, and renal function, renal is following (6) Heart transplant status Assessment & Plan: recommend to contact his heart transplant team at [place] for further recommendation, and possible transfer to [place] for higher level of care , continue transplant meds , and adjust as per his GFR. Subjective Allergies: Coded Allergies: ADHESIVE TAPE (Verified Allergy, Unknown, Rash, 05/27/16) PLASTIC TAPE-COPIED FROM UNCODED SECTION PENICILLINS (Verified Allergy, Unknown, 06/20/16) PROCAINE (Verified Allergy, Unknown, Rash, 08/19/14) COPIED FRON UNCODED Objective Vital Signs Last 24 Hour Vital Signs Date Time Temp Pulse Resp B/P Pulse Ox O2 Delivery O2 Flow Rate FiO2 06/18/16 12:00 97.0 85 20 104/79 98 Room Air 06/18/16 08:27 97.0 87 18 97/65 96 Room Air 06/18/16 08:00 86 06/18/16 04:30 97.0 98 20 106/70 97 Room Air 06/18/16 00:00 97.0 91 20 122/69 96 Room Air 06/18/16 00:00 84 06/17/16 22:40 97.4 89 24 114/57 97 Room Air 06/17/16 21:50 97.4 89 24 114/57 97 Room Air 06/17/16 21:35 97.0 89 17 124/63 99 Room Air 06/17/16 18:58 97.0 90 15 93/52 100 Room Air 06/17/16 18:01 70 18 130/60 Height (Feet): 5 Height (Inches): 8.00 Weight (Pounds): 193 Laboratory Tests Test 06/17/16 18:45 06/18/16 04:00 06/18/16 06:00 White Blood Count 10.1 K/UL (4.8-10.8) 8.8 K/UL (4.8-10.8) Red Blood Count 2.37 M/UL (4.70-6.10) L 2.73 M/UL (4.70-6.10) L Hemoglobin 6.8 G/DL (14.2-18.0) *L 7.8 G/DL (14.2-18.0) L Hematocrit 23.3 % (42.0-52.0) L 25.8 % (42.0-52.0) L Mean Corpuscular Volume 98 FL (80-99) 94 FL (80-99) Mean Corpuscular Hemoglobin 28.6 PG (27.0-31.0) 28.6 PG (27.0-31.0) Mean Corpuscular Hemoglobin Concent 29.1 G/DL (32.0-36.0) L 30.3 G/DL (32.0-36.0) L Red Cell Distribution Width 17.5 % (11.6-14.8) H 16.4 % (11.6-14.8) H Platelet Count 321 K/UL (150-450) 290 K/UL (150-450) Mean Platelet Volume 4.9 FL (6.5-10.1) L 5.5 FL (6.5-10.1) L Neutrophils (%) (Auto) % (45.0-75.0) % (45.0-75.0) Lymphocytes (%) (Auto) % (20.0-45.0) % (20.0-45.0) Monocytes (%) (Auto) % (1.0-10.0) % (1.0-10.0) Eosinophils (%) (Auto) % (0.0-3.0) % (0.0-3.0) Basophils (%) (Auto) % (0.0-2.0) % (0.0-2.0) Differential Total Cells Counted 100 100 Neutrophils % (Manual) 83 % (45-75) H 88 % (45-75) H Lymphocytes % (Manual) 16 % (20-45) L 4 % (20-45) L Monocytes % (Manual) 0 % (1-10) L 6 % (1-10) Eosinophils % (Manual) 0 % (0-3) 2 % (0-3) Basophils % (Manual) 1 % (0-2) 0 % (0-2) Band Neutrophils 0 % (0-8) 0 % (0-8) Platelet Estimate Adequate Adequate Platelet Morphology Normal Normal Polychromasia 1+ Hypochromasia 2+ 1+ Anisocytosis 2+ 1+ Macrocytosis 1+ Prothrombin Time 10.1 SEC (9.30-11.50) Prothromb Time International Ratio 1.0 (0.9-1.1) Activated Partial Thromboplast Time 37 SEC (23-33) H Sodium Level 138 mEQ/L (135-145) 142 mEQ/L (135-145) Potassium Level 6.3 mEQ/L (3.4-4.9) *H 6.2 mEQ/L (3.4-4.9) *H Chloride Level 105 mEQ/L (98-107) 109 mEQ/L (98-107) H Carbon Dioxide Level 12 mEQ/L (20-30) L 13 mEQ/L (20-30) L Anion Gap 21 (5-15) H 20 (5-15) H Blood Urea Nitrogen 83 mg/dL (7-23) H 77 mg/dL (7-23) H Creatinine 3.8 mg/dL (0.7-1.2) H 3.7 mg/dL (0.7-1.2) H Estimat Glomerular Filtration Rate mL/min (>60) mL/min (>60) Glucose Level 184 mg/dL (74-106) H 54 mg/dL (74-106) #L Calcium Level 8.4 mg/dL (8.6-10.2) L 8.5 mg/dL (8.6-10.2) L Total Bilirubin < 0.2 mg/dL (0.0-1.2) < 0.2 mg/dL (0.0-1.2) Aspartate Amino Transf (AST/SGOT) 15 U/L (5-40) 14 U/L (5-40) Alanine Aminotransferase (ALT/SGPT) 16 U/L (3-41) 15 U/L (3-41) Alkaline Phosphatase 98 U/L (40-129) 88 U/L (40-129) Total Creatine Kinase 154 U/L (38-174) 115 U/L (38-174) Creatine Kinase MB 3.3 ng/mL (< 6.7) Creatine Kinase MB Relative Index 2.1 Troponin I < 0.30 ng/mL (<=0.30) Total Protein 5.5 g/dL (6.6-8.7) L 5.3 g/dL (6.6-8.7) L Albumin 2.9 g/dL (3.5-5.2) L 2.8 g/dL (3.5-5.2) L Globulin 2.6 g/dL 2.5 g/dL Albumin/Globulin Ratio 1.1 (1.0-2.7) 1.1 (1.0-2.7) Urine Color Pale yellow Urine Appearance Cloudy Urine pH 5 (4.5-8.0) Urine Specific [place] 1.015 (1.005-1.035) Urine Protein 2+ (NEGATIVE) H Urine Glucose (UA) Negative (NEGATIVE) Urine Ketones Negative (NEGATIVE) Urine Occult Blood 3+ (NEGATIVE) H Urine Nitrite Negative (NEGATIVE) Urine Bilirubin Negative (NEGATIVE) Urine Urobilinogen Normal MG/DL (0.0-1.0) Urine Leukocyte Esterase 2+ (NEGATIVE) H Urine RBC 5-10 /HPF (0 - 0) H Urine WBC 20-30 /HPF (0 - 0) H Urine Squamous Epithelial Cells Few /LPF (NONE/OCC) Urine Bacteria Few /HPF (NONE) Urine Eosinophils None seen Urine Osmolality Pending Urine Random Sodium 87 mmol/L Urine Random Chloride 64 mmol/L Urine Potassium Timed 18 mmol/L Erythrocyte Sedimentation Rate 125 MM/HR (0-20) H Reticulocyte Count 1.6 % (0.0-2.0) Plasma/Serum Osmolality Pending Uric Acid 7.3 mg/dL (3.0-7.5) Phosphorus Level 5.2 mg/dL (2.5-4.8) H Magnesium Level 2.0 mg/dL (1.7-2.5) Iron Level 36 ug/dL (59-158) L Total Iron Binding Capacity 149 ug/dL (250-400) L Percent Iron Saturation 24 % (15-50) Unsaturated Iron Binding 113 ug/dL (112-346) Lactate Dehydrogenase 179 U/L (135-230) Carcinoembryonic Antigen 4.0 ng/mL H Vitamin B12 Level 474 pg/mL (211-946) Folate Pending Thyroid Stimulating Hormone (TSH) 3.080 uIU/mL (0.300-4.500) Free Thyroxine 0.88 ng/dL (0.86-1.85) Free Triiodothyronine 1.9 pg/mL (2.3-4.2) L Cortisol Pending Current Medications Medications (Trade) Dose Ordered Sig/Koffi Route PRN Reason Start Time Stop Time Status Last Admin Dose Admin Acetaminophen (Tylenol) 650 mg Q4H PRN ORAL fever 06/17/16 22:30 07/17/16 22:29 Al Hydroxide/Mg Hydroxide (Mylanta II) 30 ml Q6H PRN ORAL dyspepsia 06/17/16 22:30 07/17/16 22:29 Clopidogrel Bisulfate (Plavix) 75 mg DAILY ORAL 06/18/16 09:00 07/18/16 08:59 06/18/16 08:28 Dextrose (Dextrose 50%) STAT PRN IV Hypoglycemia 06/17/16 22:30 07/17/16 22:29 Insulin Aspart BEFORE MEALS AND HS SUBQ 06/18/16 06:30 07/18/16 06:29 Iron Sucrose/ Sodium Chloride (Venofer/Sodium Chloride) 60 ml @ 240 mls/hr BEDTIME IVPB 06/19/16 21:00 06/21/16 21:14 Lorazepam (Ativan 2mg/ml 1ml) 0.5 mg Q4H PRN IV For Anxiety 06/17/16 22:30 06/24/16 22:29 Meropenem 500 mg/ Sodium Chloride 55 ml @ 110 mls/hr Q12H IVPB 06/18/16 12:00 06/23/16 11:59 Morphine Sulfate (Morphine Sulfate) 1 mg EVERY 4 HOURS PRN IVP For Pain 06/17/16 22:30 06/24/16 22:29 Mycophenolate Mofetil (Cellcept) 500 mg BID ORAL 06/18/16 09:00 07/18/16 08:59 06/18/16 08:28 Ondansetron HCl (Zofran) 4 mg Q6H PRN IVP Nausea & Vomiting 06/17/16 22:30 07/17/16 22:29 Polyethylene Glycol (Miralax) 17 gm HSPRN PRN ORAL Constipation 06/17/16 22:30 07/17/16 22:29 Tacrolimus (Prograf) 1 mg BID ORAL 06/18/16 09:00 07/18/16 08:59 06/18/16 08:28 Zolpidem Tartrate (Ambien) 5 mg HSPRN PRN ORAL Insomnia 06/17/16 22:30 07/17/16 22:29 Jose Mott M.D. Jun 18, 2016 13:03
--- NOTE | 2016-06-18 13:26 | Consultation ---
Consult Note Consult Note asked to evaluate for renal failure and hyperkalemia- 76-year-old male presents ED for evaluation. Family is at bedside states that patient was sent for abnormal labs. Had blood drawn yesterday at home. Patient has PICC line in place and is receiving antibiotics at home for treatment of osteomyelitis. Patient was told that his potassium was high his creatinine was high at his hemoglobin was low. Patient denies any complaints at this time. Denies any chest pain shortness of breath. Denies any fevers or chills. Denies any pain. No other aggravating relieving factors. Denies any other associated symptoms Allergies: ADHESIVE TAPE (Verified Allergy, Unknown, Rash, 05/27/16) PLASTIC TAPE-COPIED FROM UNCODED SECTION PROCAINE (Verified Allergy, Unknown, Rash, 08/19/14) COPIED FRON UNCODED Past Medical History: DM, HTN, NM, asthma, other - osteomyelitis Hx Cardiac Problems: Yes - HEART TRANSPLANT, MULTIPLE BIPASS, DOUBLE AMPUTEE Hx Hypertension: Yes Hx Asthma: Yes Hx Diabetes: Yes Hx Gastrointestinal Problems: Yes Hx Neurological Problems: Yes Patient interviewed and examined- data reviewed- Discussed with son and [employer] . Assessment/Plan status; Acute Renal Failure- Superimposed on CRI due to DM / HTN PVD s/p amputation- Severe Anemia s/p Heart transplant sacral decub plan: Hydrate- transfuse- family refuse kayexelate- wound care- monitor renal parameters- avoid nephrotoxics BRIJESH CALDERON Jun 18, 2016 13:26
[2016-06-18] MEDS: Meropenem 500mg in NS 55ml IVPB SCH (15:00)
[2016-06-18 16:34] VITALS: BP 110/70
[2016-06-18] MEDS: LORazepam Inj 2mg/ml 1ml IV PRN (17:14)
[2016-06-18 20:01] LABS: MEAN CORPUSCULAR HEMOGLOBIN 28.3 PG (27.0-31.0); MEAN CORPUSCULAR HGB CONC 29.8 G/DL (32.0-36.0); MEAN CORPUSCULAR VOLUME 95 FL (80-99); MEAN PLATELET VOLUME 5.1 FL (6.5-10.1); PLATELET COUNT 364 K/UL (150-450); RED CELL DISTRIBUTION WIDTH 16.3 % (11.6-14.8); WHITE BLOOD COUNT 17.5 K/UL (4.8-10.8)
[2016-06-18 20:06] LABS: EOSINOPHILS % (AUTO) 0.3 % (0.0-3.0); LYMPHOCYTES % (AUTO) 1.6 % (20.0-45.0); MONOCYTES % (AUTO) 1.9 % (1.0-10.0); NEUTROPHILS % (AUTO) 95.8 % (45.0-75.0)
[2016-06-18 20:07] VITALS: BP 110/55
[2016-06-18 20:07] LABS: BASOPHILS % (AUTO) 0.4 % (0.0-2.0)
[2016-06-18] MEDS ORDERED: Iron Sucrose 100 MG in NS 55 ML IVPB SCH (21:00)
[2016-06-18] MEDS: Dakin's 0.5% (Full Strength) 16oz TOPIC SCH (21:30)
--- NOTE | 2016-06-18 22:38 | Wound Care Consultation ---
Wound Assessment Wound Assessment #1: Wound Present on Admission: Yes New Wound: No Status Change of Wound: No Wound Location Body Site Modif: mid Wound Location Body Site: sacral Wound Type: pressure ulcer Anirudh Test: Does not Anirudh Pressure Ulcer Stage: IV/unstageable Wound Thickness: Full Thickness Wound Length: 13.5 Wound Width: 10.5 Wound Depth: 3.5 Percent of Wound Literberry/Red: 40 Percent of Wound Bed Yellow/Wh: 30 Percent of Wound Black/Brown: 30 Wound Drainage Description: Serosanguineous Wound Drainage Amount: Copious Wound Drainage Odor: Mild Odor Tissue Surrounding Wound: Macerated Wound Undermining at 12:00: 5.0 Wound Undermining at 3:00: 3.5 Wound Undermining at 6:00: 3.5 Wound Undermining at 9:00: 3.5 Wound General Appearance: Draining, Necrotic, Bone Palpable Wound Assessment #2: Wound Number: #2 Wound Present on Admission: Yes New Wound: No Status Change of Wound: No Wound Location Body Site Modif: right Wound Location Body Site: ischial tuberosity Wound Type: pressure ulcer Anirudh Test: Does not Anirudh Pressure Ulcer Stage: IV/unstageable Wound Thickness: Full Thickness Wound Length: 6.5 Wound Width: 4.5 Wound Depth: 3.5 Percent of Wound Literberry/Red: 60 Percent of Wound Bed Yellow/Wh: 20 Percent of Wound Black/Brown: 20 Wound Drainage Description: Serosanguineous Wound Drainage Amount: Copious Wound Drainage Odor: Mild Odor Tissue Surrounding Wound: Macerated Wound General Appearance: Reddened, Draining Wound Assessment #3: Wound Number: #3 Wound Present on Admission: Yes New Wound: No Status Change of Wound: No Wound Location Body Site Modif: right Wound Location Body Site: trochanter Wound Type: pressure ulcer Anirudh Test: Does not Anirudh Pressure Ulcer Stage: IV/unstageable Wound Thickness: Full Thickness Wound Length: 10.0 Wound Width: 10.5 Wound Depth: utd Percent of Wound Bed Yellow/Wh: 70 Percent of Wound Black/Brown: 30 Wound Drainage Description: Serosanguineous Wound Drainage Amount: Moderate Wound Drainage Odor: None/Absent Tissue Surrounding Wound: Macerated Wound General Appearance: Draining Wound Assessment #4: Wound Number: #4 Wound Present on Admission: Yes New Wound: No Status Change of Wound: No Wound Location Body Site: perineal area - scrotum Wound Type: chemical burn - with erosion Anirudh Test: Does not Anirudh Wound Thickness: Partial Thickness Wound Length: 3.0 Wound Width: 2.0 Wound Drainage Description: Serosanguineous Wound Drainage Amount: Scant Wound Drainage Odor: None/Absent Tissue Surrounding Wound: Macerated Wound General Appearance: Reddened Wound Assessment #5: Wound Number: #5 Wound Present on Admission: Yes New Wound: No Status Change of Wound: No Wound Location Body Site Modif: left Wound Location Body Site: trochanter Wound Type: pressure ulcer Anirudh Test: Does not Anirudh Pressure Ulcer Stage: IV/unstageable Wound Thickness: Full Thickness Wound Length: 5.5 Wound Width: 4.5 Wound Depth: 0.3 Percent of Wound Literberry/Red: 100 Wound Drainage Description: Serosanguineous Wound Drainage Amount: Moderate Wound Drainage Odor: None/Absent Tissue Surrounding Wound: Macerated Wound General Appearance: Draining Wound Comment #1 Sacral stage IV/unstageable pressure ulcer that extended to left and right buttocks #2 Right trochanter stage IV/unstageable pressure ulcer #3 Right ischial tuberosity stage IV/unstageable pressure ulcer #4 Left trochanter stage IV pressure ulcer #5 Perineal area chemical burn with erosion Recommendation -Local wound care as ordered by MD -Turn and reposition -Keep clean and dry -Optimize nutrition -Low air loss mattress with AP -Assess and f/u with Md for any changes BRANDT SEXTON RN Jun 18, 2016 22:38
[2016-06-19] VITALS (7 sets, daily range): BP systolic 77–101; BP diastolic 46–57
[2016-06-19] MEDS: Meropenem 500mg in NS 55ml IVPB SCH ×2 (00:24→12:55)
[2016-06-19] MEDS: NovoLOG Insulin Flexpen SUBQ SCH ×4 (06:38→21:44)
[2016-06-19 07:20] LABS: MEAN CORPUSCULAR HEMOGLOBIN 28.7 PG (27.0-31.0); MEAN CORPUSCULAR HGB CONC 30.3 G/DL (32.0-36.0); MEAN CORPUSCULAR VOLUME 95 FL (80-99); MEAN PLATELET VOLUME 5.4 FL (6.5-10.1); PLATELET COUNT 298 K/UL (150-450); RED CELL DISTRIBUTION WIDTH 16.3 % (11.6-14.8); WHITE BLOOD COUNT 14.6 K/UL (4.8-10.8)
[2016-06-19 07:41] LABS: ALANINE AMINOTRANSFERASE 14 U/L (3-41); ALBUMIN/GLOBULIN RATIO 0.9 (1.0-2.7); ASPARTATE AMINO TRANSFERASE 17 U/L (5-40); CALCIUM 8.7 mg/dL (8.6-10.2); CARBON DIOXIDE 11 mEQ/L (20-30); CHLORIDE 105 mEQ/L (98-107); CHOLESTEROL 76 mg/dL (< 200); CREATININE 3.7 mg/dL (0.7-1.2); CRP QUANT 17.3 mg/dL (< 0.5); HEMOLYSIS 13; LDL CHOLESTEROL (CALC.) 23 mg/dL (60-99); MAGNESIUM 1.8 mg/dL (1.7-2.5); PHOSPHORUS 4.3 mg/dL (2.5-4.8); SODIUM 138 mEQ/L (135-145); TOTAL PROTEIN 5.9 g/dL (6.6-8.7); URIC ACID 7.2 mg/dL (3.0-7.5)
[2016-06-19 07:47] LABS: ANION GAP 22 (5-15)
[2016-06-19 07:51] LABS: POTASSIUM 6.9 mEQ/L (3.4-4.9)
[2016-06-19 07:53] LABS: HEMOGLOBIN A1C 5.5 % (< 6.0)
[2016-06-19] MEDS ORDERED: Norco 5mg/325mg tab ORAL PRN (09:00)
[2016-06-19] MEDS ORDERED: Morphine Sulfate 2mg/ml Inj IVP PRN (09:15)
[2016-06-19] MEDS: Mycophenolate 250mg cap ORAL SCH ×2 (09:31→17:54)
[2016-06-19] MEDS: Dakin's 0.5% (Full Strength) 16oz TOPIC SCH (09:43)
[2016-06-19] MEDS ORDERED: SODIUM CHLORIDE IV ONE (10:00)
[2016-06-19] MEDS ORDERED: SODIUM BICARBONATE IV ONE (10:00)
[2016-06-19 10:17] LABS: BAND NEUTROPHILS % (MANUAL) 4 % (0-8); LYMPHOCYTES % (MANUAL) 8 % (20-45); NEUTROPHILS % (MANUAL) 85 % (45-75); TOTAL CELLS COUNTED 100
[2016-06-19 10:19] LABS: ANISOCYTOSIS 1+; BASOPHILS % (MANUAL) 0 % (0-2); EOSINOPHILS % (MANUAL) 0 % (0-3); HYPOCHROMASIA 1+; PLATELET ESTIMATE ADEQUATE; PLATELET MORPHOLOGY NORMAL; POLYCHROMASIA 1+
[2016-06-19] MEDS: Morphine Sulfate 2mg/ml Inj IVP PRN ×2 (10:43→15:55)
--- NOTE | 2016-06-19 10:43 | General Progress Note ---
Assessment/Plan Status: unchanged, deteriorating Status Narrative appears septic with low BP Assessment/Plan status: Acute Renal Failure- septic shock likely ! Superimposed on CRI due to DM / HTN PVD s/p amputation- Severe Anemia s/p Heart transplant sacral decub plan: Hydrate- transfused- family refuse kayexelate- IV NaHCo3 wound care- monitor renal parameters- avoid nephrotoxics per ID Subjective ROS Limited/Unobtainable: No Constitutional: Reports: malaise, weakness Respiratory: Reports: orthopnea Allergies: Coded Allergies: ADHESIVE TAPE (Verified Allergy, Unknown, Rash, 05/27/16) PLASTIC TAPE-COPIED FROM UNCODED SECTION PROCAINE (Verified Allergy, Unknown, Rash, 08/19/14) COPIED FRON UNCODED Objective Last 24 Hour Vital Signs Date Time Temp Pulse Resp B/P Pulse Ox O2 Delivery O2 Flow Rate FiO2 06/19/16 08:00 98.2 92 20 89/55 97 Nasal Cannula 1.0 06/19/16 04:00 97.0 93 18 99/57 06/19/16 04:00 93 06/19/16 00:30 97.0 96/56 06/19/16 00:00 96.7 92 18 101/46 96 Nasal Cannula 2.0 06/19/16 00:00 94 06/18/16 21:00 97.5 06/18/16 20:07 101.3 112 21 110/55 95 Room Air 06/18/16 20:00 109 06/18/16 20:00 101.5 06/18/16 19:47 97.3 06/18/16 18:30 102.6 06/18/16 16:34 97.0 103 20 110/70 97 Room Air 06/18/16 16:00 105 06/18/16 12:00 97.0 85 20 104/79 98 Room Air 06/18/16 12:00 85 Intake and Output 06/18/16 06/19/16 19:00 07:00 Intake Total 540 ml 55 ml Output Total 500 ml 1200 ml Balance 40 ml -1145 ml Intake Oral 240 ml IV Total 50 ml 55 ml Blood Product 250 ml Output Urine Total 500 ml 1200 ml # Bowel Movements 2 1 Laboratory Tests 06/18/16 19:20: White Blood Count 17.5#H, Red Blood Count 3.60L, Hemoglobin 10.2#L, Hematocrit 34.2#L, Mean Corpuscular Volume 95, Mean Corpuscular Hemoglobin 28.3, Mean Corpuscular Hemoglobin Concent 29.8L, Red Cell Distribution Width 16.3H, Platelet Count 364, Mean Platelet Volume 5.1L, Neutrophils (%) (Auto) 95.8H, Lymphocytes (%) (Auto) 1.6L, Monocytes (%) (Auto) 1.9, Eosinophils (%) (Auto) 0.3, Basophils (%) (Auto) 0.4 06/19/16 06:30: White Blood Count 14.6H, Red Blood Count 3.30L, Hemoglobin 9.5L, Hematocrit 31.3L, Mean Corpuscular Volume 95, Mean Corpuscular Hemoglobin 28.7, Mean Corpuscular Hemoglobin Concent 30.3L, Red Cell Distribution Width 16.3H, Platelet Count 298, Mean Platelet Volume 5.4L, Neutrophils (%) (Auto) , Lymphocytes (%) (Auto) , Monocytes (%) (Auto) , Eosinophils (%) (Auto) , Basophils (%) (Auto) , Differential Total Cells Counted 100, Neutrophils % ( Manual) 85H, Lymphocytes % (Manual) 8L, Monocytes % (Manual) 3, Eosinophils % ( Manual) 0, Basophils % (Manual) 0, Band Neutrophils 4, Platelet Estimate Adequate, Platelet Morphology Normal, Polychromasia 1+, Hypochromasia 1+, Anisocytosis 1+, Sodium Level 138, Potassium Level 6.9*H, Chloride Level 105, Carbon Dioxide Level 11L, Anion Gap 22H, Blood Urea Nitrogen 85H, Creatinine 3.7H, Estimat Glomerular Filtration Rate , Glucose Level 173#H, Hemoglobin A1c 5.5, Uric Acid 7.2, Calcium Level 8.7, Phosphorus Level 4.3, Magnesium Level 1.8 , Total Bilirubin 0.2, Gamma Glutamyl Transpeptidase 25, Aspartate Amino Transf (AST/SGOT) 17, Alanine Aminotransferase (ALT/SGPT) 14, Alkaline Phosphatase 79, Total Creatine Kinase 167, C-Reactive Protein, Quantitative 17.3H, Pro-B-Type Natriuretic Peptide 75076B, Total Protein 5.9L, Albumin 2.8L, Globulin 3.1, Albumin/Globulin Ratio 0.9L, Triglycerides Level 142, Cholesterol Level 76, LDL Cholesterol 23L, HDL Cholesterol 25, Cholesterol/HDL Ratio 3.0L, Vitamin B12 Level 459, Folate [Pending], Cortisol AM Sample [Pending] 06/19/16 08:25: Potassium Level 6.9*H Height (Feet): 5 Height (Inches): 8.00 Weight (Pounds): 193 BRIJESH CALDERON Jun 19, 2016 10:43
[2016-06-19] MEDS: DAPTOmycin 500 MG in NS 55 ML IV SCH (10:45)
[2016-06-19] MEDS ORDERED: Sodium Polystyrene Sulfonate 15gm Powder ORAL ONE (11:00)
--- NOTE | 2016-06-19 11:53 | Diagnostic Imaging Report ---
Indication: Dyspnea Comparison: June 17, 2016 A single view chest radiograph was obtained. Findings: No definite infiltrate or pulmonary vascular congestion identified. Sternotomy noted. PICC line is stable. The heart is enlarged. The aorta is mildly enlarged consistent with atherosclerotic vascular disease. The bones are osteopenic. Impression: No acute disease
--- NOTE | 2016-06-19 12:13 | Consultation ---
History of Present Illness General Date patient seen: Jun 19, 2016 Time patient seen: 12:04 Chief Complaint: Abnormal Labs Reason for Consultation: Multiple pressure ulcers Present Illness HPI Patient is 76 yom well known to me from the wound center. He was last seen at the center on 06/14 for multiple pressure ulcers of the buttocks and trochanter. He was admitted to [facility] 2 days ago for abnormally high potassium and creatinine. He is being treated with IV antibiotics by ID and Dr. Mott is following. Over the last 24 hours he has developed a leukocytosis as well as fevers. Allergies: Coded Allergies: ADHESIVE TAPE (Verified Allergy, Unknown, Rash, 05/27/16) PLASTIC TAPE-COPIED FROM UNCODED SECTION PROCAINE (Verified Allergy, Unknown, Rash, 08/19/14) COPIED FRON UNCODED Medication History Scheduled Ascorbic Acid* (Ascorbic Acid*), 500 MG ORAL TWICE A DAY Aspirin (Aspirin EC), 81 MG ORAL DAILY, (Reported) Clopidogrel Bisulfate* (Plavix*), 75 MG ORAL DAILY, (Reported) Duloxetine Hcl* (Cymbalta*), 30 MG ORAL DAILY, (Reported) Epoetin Mars (Epogen), 20,000 UNIT SUBQ 2XW, (Reported) Ferrous Sulfate* (Ferrous Sulfate*), 325 MG ORAL DAILY, (Reported) Glyburide* (Diabeta*), 10 MG ORAL BIAC, (Reported) Insulin Glargine (Lantus), 26 SUBQ DA, (Reported) Insulin Glargine (Lantus), 26 ML SUBQ BEDTIME, (Reported) Magnesium Amino Acid Chelate (Magnesium), 200 MG PO BID, (Reported) Meropenem (Meropenem), 2 GM IV BID, (Reported) Methenamine Hippurate (Methenamine Hippurate), 10 MG PO BID, (Reported) Methenamine Hippurate (Hiprex), 1 GM PO BID, (Reported) Mirtazapine* (Mirtazapine*), 15 MG ORAL BEDTIME, (Reported) Multivitamins* (Multivitamins*), 1 TAB ORAL DAILY Mycophenolate Mofetil (Cellcept), 500 MG ORAL BID, (Reported) Olmesartan/Hydrochlorothiazide 40-12.5MG (Benicar Hct 40-12.5 Mg Tablet), 1 TAB ORAL BID, (Reported) Pravastatin Sod* (Pravachol*), 20 MG ORAL BEDTIME, (Reported) Sitagliptin (Januvia), 50 MG ORAL DAILY, (Reported) Sitagliptin* (Januvia*), 50 MG ORAL DAILY, (Reported) Tacrolimus (Prograf), 1 MG ORAL BID, (Reported) Zinc Sulfate (Zinc Sulfate*), 220 MG ORAL DAILY [Cyproheptadine Hcl], 4 MG ORAL THREE TIMES A DAY Scheduled PRN Albuterol Sulfate (Ventolin Hfa), 2 PUFFS INH EVERY 6 HOURS PRN for Shortness of Breath, (Reported) Bisacodyl (Dulcolax), 10 MG RC for Constipation, (Reported) Polyethylene Glycol 3350* (Miralax*), 17 GM ORAL HSPRN PRN for Constipation Discontinued Medications Docusate Sodium* (Colace*), 100 MG ORAL TID Discontinued Reason: Medication dose changed Patient History History Provided By: Family Member, Medical Record Healthcare decision maker pt alert and oriented Resuscitation status Full Code Advanced Directive on File Past Medical/Surgical History Past Medical/Surgical History: (1) Peripheral vascular disease of lower extremity with ulceration (2) Vascular insufficiency (3) Decubitus skin ulcer (4) Acute renal failure (5) CKD (chronic kidney disease) (6) PVD (peripheral vascular disease) (7) Anemia (8) History of heart transplant (9) Heart transplant status Review of Systems Constitutional: Reports: fever Eye: Reports: no symptoms ENT: Reports: no symptoms Respiratory: Reports: no symptoms Skin: Reports: see HPI Psychiatric: Reports: no symptoms Hematologic/Lymphatic: Reports: anemia Physical Exam General Appearance: lethargic Lines, tubes and drains: PICC, mason cath Respiratory/Chest: no respiratory distress Abdomen: soft Skin Exam: other - Stage 4 pressure ulcers of sacrum, right ischium, left trochanter. Sacral ulcer with area of devitalized muscle on the left. Bone papable centrally. No purulent drainage and periskin with no erythema. Right ischial ulcer with bone exposed but clean base. Last 24 Hour Vital Signs Date Time Temp Pulse Resp B/P Pulse Ox O2 Delivery O2 Flow Rate FiO2 06/19/16 08:00 94 06/19/16 08:00 98.2 92 20 89/55 97 Nasal Cannula 1.0 06/19/16 04:00 97.0 93 18 99/57 06/19/16 04:00 93 06/19/16 00:30 97.0 96/56 06/19/16 00:00 96.7 92 18 101/46 96 Nasal Cannula 2.0 06/19/16 00:00 94 06/18/16 21:00 97.5 06/18/16 20:07 101.3 112 21 110/55 95 Room Air 06/18/16 20:00 109 06/18/16 20:00 101.5 06/18/16 19:47 97.3 06/18/16 18:30 102.6 06/18/16 16:34 97.0 103 20 110/70 97 Room Air 06/18/16 16:00 105 Intake and Output 06/18/16 06/19/16 19:00 07:00 Intake Total 540 ml 55 ml Output Total 500 ml 1200 ml Balance 40 ml -1145 ml Intake Oral 240 ml IV Total 50 ml 55 ml Blood Product 250 ml Output Urine Total 500 ml 1200 ml # Bowel Movements 2 1 Laboratory Tests Test 06/18/16 19:20 06/19/16 06:30 06/19/16 08:25 White Blood Count 17.5 K/UL (4.8-10.8) #H 14.6 K/UL (4.8-10.8) H Red Blood Count 3.60 M/UL (4.70-6.10) L 3.30 M/UL (4.70-6.10) L Hemoglobin 10.2 G/DL (14.2-18.0) #L 9.5 G/DL (14.2-18.0) L Hematocrit 34.2 % (42.0-52.0) #L 31.3 % (42.0-52.0) L Mean Corpuscular Volume 95 FL (80-99) 95 FL (80-99) Mean Corpuscular Hemoglobin 28.3 PG (27.0-31.0) 28.7 PG (27.0-31.0) Mean Corpuscular Hemoglobin Concent 29.8 G/DL (32.0-36.0) L 30.3 G/DL (32.0-36.0) L Red Cell Distribution Width 16.3 % (11.6-14.8) H 16.3 % (11.6-14.8) H Platelet Count 364 K/UL (150-450) 298 K/UL (150-450) Mean Platelet Volume 5.1 FL (6.5-10.1) L 5.4 FL (6.5-10.1) L Neutrophils (%) (Auto) 95.8 % (45.0-75.0) H % (45.0-75.0) Lymphocytes (%) (Auto) 1.6 % (20.0-45.0) L % (20.0-45.0) Monocytes (%) (Auto) 1.9 % (1.0-10.0) % (1.0-10.0) Eosinophils (%) (Auto) 0.3 % (0.0-3.0) % (0.0-3.0) Basophils (%) (Auto) 0.4 % (0.0-2.0) % (0.0-2.0) Differential Total Cells Counted 100 Neutrophils % (Manual) 85 % (45-75) H Lymphocytes % (Manual) 8 % (20-45) L Monocytes % (Manual) 3 % (1-10) Eosinophils % (Manual) 0 % (0-3) Basophils % (Manual) 0 % (0-2) Band Neutrophils 4 % (0-8) Platelet Estimate Adequate Platelet Morphology Normal Polychromasia 1+ Hypochromasia 1+ Anisocytosis 1+ Sodium Level 138 mEQ/L (135-145) Potassium Level 6.9 mEQ/L (3.4-4.9) *H 6.9 mEQ/L (3.4-4.9) *H Chloride Level 105 mEQ/L (98-107) Carbon Dioxide Level 11 mEQ/L (20-30) L Anion Gap 22 (5-15) H Blood Urea Nitrogen 85 mg/dL (7-23) H Creatinine 3.7 mg/dL (0.7-1.2) H Estimat Glomerular Filtration Rate mL/min (>60) Glucose Level 173 mg/dL (74-106) #H Hemoglobin A1c 5.5 % (< 6.0) Uric Acid 7.2 mg/dL (3.0-7.5) Calcium Level 8.7 mg/dL (8.6-10.2) Phosphorus Level 4.3 mg/dL (2.5-4.8) Magnesium Level 1.8 mg/dL (1.7-2.5) Total Bilirubin 0.2 mg/dL (0.0-1.2) Gamma Glutamyl Transpeptidase 25 U/L (8-61) Aspartate Amino Transf (AST/SGOT) 17 U/L (5-40) Alanine Aminotransferase (ALT/SGPT) 14 U/L (3-41) Alkaline Phosphatase 79 U/L (40-129) Total Creatine Kinase 167 U/L (38-174) C-Reactive Protein, Quantitative 17.3 mg/dL (< 0.5) H Pro-B-Type Natriuretic Peptide 11400 pg/mL (0-450) H Total Protein 5.9 g/dL (6.6-8.7) L Albumin 2.8 g/dL (3.5-5.2) L Globulin 3.1 g/dL Albumin/Globulin Ratio 0.9 (1.0-2.7) L Triglycerides Level 142 mg/dL (< 150) Cholesterol Level 76 mg/dL (< 200) LDL Cholesterol 23 mg/dL (60-99) L HDL Cholesterol 25 mg/dL (> 60) Cholesterol/HDL Ratio 3.0 (3.3-4.4) L Vitamin B12 Level 459 pg/mL (211-946) Folate Pending Cortisol AM Sample Pending Height (Feet): 5 Height (Inches): 8.00 Weight (Pounds): 193 Medications Current Medications Medications (Trade) Dose Ordered Sig/Koffi Route PRN Reason Start Time Stop Time Status Last Admin Dose Admin Acetaminophen (Tylenol) 650 mg Q4H PRN ORAL fever 06/17/16 22:30 07/17/16 22:29 06/18/16 18:48 Acetaminophen/ Hydrocodone Bitart ([place] 5/325) 1 tab Q4H PRN ORAL Moderate Pain (Pain Scale 4-6) 06/19/16 09:00 06/26/16 08:59 06/19/16 09:30 Clopidogrel Bisulfate (Plavix) 75 mg DAILY ORAL 06/18/16 09:00 07/18/16 08:59 06/19/16 09:28 Collagenase (Santyl) 1 applic DAILY TOPIC 06/18/16 16:00 07/18/16 15:59 06/19/16 09:44 Daptomycin 500 mg/ Sodium Chloride 55 ml @ 110 mls/hr Q48H IV 06/19/16 10:00 06/26/16 09:59 06/19/16 10:45 Dextrose (Dextrose 50%) STAT PRN IV Hypoglycemia 06/17/16 22:30 07/17/16 22:29 Insulin Aspart BEFORE MEALS AND HS SUBQ 06/18/16 06:30 07/18/16 06:29 06/19/16 06:38 Iron Sucrose/ Sodium Chloride (Venofer/Sodium Chloride) 60 ml @ 240 mls/hr BEDTIME IVPB 06/19/16 21:00 06/21/16 21:14 Levofloxacin (Levaquin) 100 ml @ 100 mls/hr Q48H IVPB 06/19/16 09:30 06/26/16 09:29 Lorazepam (Ativan 2mg/ml 1ml) 0.5 mg Q4H PRN IV For Anxiety 06/17/16 22:30 06/24/16 22:29 06/18/16 17:14 Meropenem 500 mg/ Sodium Chloride 55 ml @ 110 mls/hr Q12H IVPB 06/18/16 12:00 06/23/16 11:59 06/19/16 00:24 Morphine Sulfate 1 mg 1 mg Q4H PRN IVP Severe Pain (Pain Scale 7-10) 06/19/16 11:00 06/26/16 10:59 Mycophenolate Mofetil (Cellcept) 500 mg BID ORAL 06/18/16 09:00 07/18/16 08:59 06/19/16 09:31 Ondansetron HCl (Zofran) 4 mg Q6H PRN IVP Nausea & Vomiting 06/17/16 22:30 07/17/16 22:29 Pantoprazole (Protonix) 40 mg ACBREAKFAST ORAL 06/18/16 14:30 07/18/16 14:29 06/19/16 06:34 Polyethylene Glycol (Miralax) 17 gm HSPRN PRN ORAL Constipation 06/17/16 22:30 07/17/16 22:29 Sodium Hypochlorite 1 applic 1 applic DAILY TOPIC 06/18/16 16:00 07/18/16 15:59 06/19/16 09:43 Sodium Chloride (Sodium Chloride 1000ml bag) 1,000 ml @ 75 mls/hr [id number] IV 06/19/16 11:00 07/19/16 10:59 Tacrolimus (Prograf) 1 mg BID ORAL 06/18/16 09:00 07/18/16 08:59 06/19/16 09:28 Zolpidem Tartrate (Ambien) 5 mg HSPRN PRN ORAL Insomnia 06/17/16 22:30 07/17/16 22:29 Assessment/Plan Assessment/Plan Patient with multiple pressure ulcers, ARF, and hyperkalemia. He would benefit from surgical debridement of the sacral ulcer but would need medical clearance. At this time he is not stable for surgery. Will continue the wound care orders that were being performed at the center for this week. need to off load aggressively. JOE MARTEL Jun 19, 2016 12:13
--- NOTE | 2016-06-19 12:21 | Pulmonology Progress Note ---
Assessment/Plan Assessment/Plan ASSESSMENT likely sepsis hypotension, possible early septic shock acute renal failure on chronic kidney disease hyperkalemia acute anemia , s/p blood transfusion osteomyelitis DM CAD, s/p heart transplant PVD bilateral amputee PLAN OF CARE tele nephro follows IV bicarbonate 1 L fluid Kayexalate closely watch BP for possible early septic shock renal US no hydro, bilateral kidney normal echogenicity avoid nephrotoxic monitor renal parameters and lytes anemia workup with low iron start Venofer x 3 doses, check stool OB, CEA with mild elevation ID follows abx per ID blood cx pending , urien cx prelim negatuve, UA + pyuria, + leukocyte esterase , but few bacteria wound care plastic surgery eval pending pain management bowel regimen BS management with SS of insulin continue Plavix DVT prophylaxis case discussed and evaluated by supervising physician Subjective Allergies: Coded Allergies: ADHESIVE TAPE (Verified Allergy, Unknown, Rash, 05/27/16) PLASTIC TAPE-COPIED FROM UNCODED SECTION PROCAINE (Verified Allergy, Unknown, Rash, 08/19/14) COPIED FRON UNCODED Subjective on 2 afternoon chills followed by fever, CBC rechecked- with leukocytosis blood cx drawn ID follows this am , 06/19 -afebrile, leukocytosis trending down renal parameters without change hypotensive K-6.9 and patient initially declined Kayexalate due to fear of worsening decub 2 to diarrhea nephro treated in other way, however worsening hyperkalemia family now agrees to Kayexalate treatment HH stable after blood transfusion ( total 2 units) patient denies chest pain, SOB, dizziness, palpitations reports intermittent back pain Objective Last 24 Hour Vital Signs Date Time Temp Pulse Resp B/P Pulse Ox O2 Delivery O2 Flow Rate FiO2 06/19/16 08:00 94 06/19/16 08:00 98.2 92 20 89/55 97 Nasal Cannula 1.0 06/19/16 04:00 97.0 93 18 99/57 06/19/16 04:00 93 06/19/16 00:30 97.0 96/56 06/19/16 00:00 96.7 92 18 101/46 96 Nasal Cannula 2.0 06/19/16 00:00 94 06/18/16 21:00 97.5 06/18/16 20:07 101.3 112 21 110/55 95 Room Air 06/18/16 20:00 109 06/18/16 20:00 101.5 06/18/16 19:47 97.3 06/18/16 18:30 102.6 06/18/16 16:34 97.0 103 20 110/70 97 Room Air 06/18/16 16:00 105 Intake and Output 06/18/16 06/19/16 19:00 07:00 Intake Total 540 ml 55 ml Output Total 500 ml 1200 ml Balance 40 ml -1145 ml Intake Oral 240 ml IV Total 50 ml 55 ml Blood Product 250 ml Output Urine Total 500 ml 1200 ml # Bowel Movements 2 1 Objective General Appearance: no apparent distress, alert Lines, tubes and drains: PICC HEENT: normocephalic, atraumatic, anicteric, mucous membranes moist Neck: non-tender, supple Respiratory/Chest: chest wall non-tender, lungs clear, no respiratory distress , no accessory muscle use Cardiovascular/Chest: normal rate, SR on tele, regular rhythm Abdomen: normal bowel sounds, non tender, soft, obese Genitourinary/Rectal: mason Extremities: other - 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 Skin Exam: decub Neurologic: abnormal gait, bedridden, alert, oriented x 3, responsive Musculoskeletal: bilateral amputee Microbiology Date/Time Source Procedure Growth Status 06/18/16 04:00 Urine,Clean Catch Urine Culture - Preliminary NO GROWTH Resulted Laboratory Tests 06/18/16 19:20: White Blood Count 17.5#H, Red Blood Count 3.60L, Hemoglobin 10.2#L, Hematocrit 34.2#L, Mean Corpuscular Volume 95, Mean Corpuscular Hemoglobin 28.3, Mean Corpuscular Hemoglobin Concent 29.8L, Red Cell Distribution Width 16.3H, Platelet Count 364, Mean Platelet Volume 5.1L, Neutrophils (%) (Auto) 95.8H, Lymphocytes (%) (Auto) 1.6L, Monocytes (%) (Auto) 1.9, Eosinophils (%) (Auto) 0.3, Basophils (%) (Auto) 0.4 06/19/16 06:30: White Blood Count 14.6H, Red Blood Count 3.30L, Hemoglobin 9.5L, Hematocrit 31.3L, Mean Corpuscular Volume 95, Mean Corpuscular Hemoglobin 28.7, Mean Corpuscular Hemoglobin Concent 30.3L, Red Cell Distribution Width 16.3H, Platelet Count 298, Mean Platelet Volume 5.4L, Neutrophils (%) (Auto) , Lymphocytes (%) (Auto) , Monocytes (%) (Auto) , Eosinophils (%) (Auto) , Basophils (%) (Auto) , Differential Total Cells Counted 100, Neutrophils % ( Manual) 85H, Lymphocytes % (Manual) 8L, Monocytes % (Manual) 3, Eosinophils % ( Manual) 0, Basophils % (Manual) 0, Band Neutrophils 4, Platelet Estimate Adequate, Platelet Morphology Normal, Polychromasia 1+, Hypochromasia 1+, Anisocytosis 1+, Sodium Level 138, Potassium Level 6.9*H, Chloride Level 105, Carbon Dioxide Level 11L, Anion Gap 22H, Blood Urea Nitrogen 85H, Creatinine 3.7H, Estimat Glomerular Filtration Rate , Glucose Level 173#H, Hemoglobin A1c 5.5, Uric Acid 7.2, Calcium Level 8.7, Phosphorus Level 4.3, Magnesium Level 1.8 , Total Bilirubin 0.2, Gamma Glutamyl Transpeptidase 25, Aspartate Amino Transf (AST/SGOT) 17, Alanine Aminotransferase (ALT/SGPT) 14, Alkaline Phosphatase 79, Total Creatine Kinase 167, C-Reactive Protein, Quantitative 17.3H, Pro-B-Type Natriuretic Peptide 91080W, Total Protein 5.9L, Albumin 2.8L, Globulin 3.1, Albumin/Globulin Ratio 0.9L, Triglycerides Level 142, Cholesterol Level 76, LDL Cholesterol 23L, HDL Cholesterol 25, Cholesterol/HDL Ratio 3.0L, Vitamin B12 Level 459, Folate [Pending], Cortisol AM Sample [Pending] 06/19/16 08:25: Potassium Level 6.9*H Current Medications Medications (Trade) Dose Ordered Sig/Koffi Route PRN Reason Start Time Stop Time Status Last Admin Dose Admin Acetaminophen (Tylenol) 650 mg Q4H PRN ORAL fever 06/17/16 22:30 07/17/16 22:29 06/18/16 18:48 Acetaminophen/ Hydrocodone Bitart ([place] 5/325) 1 tab Q4H PRN ORAL Moderate Pain (Pain Scale 4-6) 06/19/16 09:00 06/26/16 08:59 06/19/16 09:30 Clopidogrel Bisulfate (Plavix) 75 mg DAILY ORAL 06/18/16 09:00 07/18/16 08:59 06/19/16 09:28 Collagenase (Santyl) 1 applic DAILY TOPIC 06/18/16 16:00 07/18/16 15:59 06/19/16 09:44 Daptomycin 500 mg/ Sodium Chloride 55 ml @ 110 mls/hr Q48H IV 06/19/16 10:00 06/26/16 09:59 06/19/16 10:45 Dextrose (Dextrose 50%) STAT PRN IV Hypoglycemia 06/17/16 22:30 07/17/16 22:29 Insulin Aspart BEFORE MEALS AND HS SUBQ 06/18/16 06:30 07/18/16 06:29 06/19/16 06:38 Iron Sucrose/ Sodium Chloride (Venofer/Sodium Chloride) 60 ml @ 240 mls/hr BEDTIME IVPB 06/19/16 21:00 06/21/16 21:14 Levofloxacin (Levaquin) 100 ml @ 100 mls/hr Q48H IVPB 06/19/16 09:30 06/26/16 09:29 Lorazepam (Ativan 2mg/ml 1ml) 0.5 mg Q4H PRN IV For Anxiety 06/17/16 22:30 06/24/16 22:29 06/18/16 17:14 Meropenem 500 mg/ Sodium Chloride 55 ml @ 110 mls/hr Q12H IVPB 06/18/16 12:00 06/23/16 11:59 06/19/16 00:24 Morphine Sulfate 1 mg 1 mg Q4H PRN IVP Severe Pain (Pain Scale 7-10) 06/19/16 11:00 06/26/16 10:59 Mycophenolate Mofetil (Cellcept) 500 mg BID ORAL 06/18/16 09:00 07/18/16 08:59 06/19/16 09:31 Ondansetron HCl (Zofran) 4 mg Q6H PRN IVP Nausea & Vomiting 06/17/16 22:30 07/17/16 22:29 Pantoprazole (Protonix) 40 mg ACBREAKFAST ORAL 06/18/16 14:30 07/18/16 14:29 06/19/16 06:34 Polyethylene Glycol (Miralax) 17 gm HSPRN PRN ORAL Constipation 06/17/16 22:30 07/17/16 22:29 Sodium Hypochlorite 1 applic 1 applic DAILY TOPIC 06/18/16 16:00 07/18/16 15:59 06/19/16 09:43 Sodium Chloride (Sodium Chloride 1000ml bag) 1,000 ml @ 75 mls/hr [id number] IV 06/19/16 11:00 07/19/16 10:59 Tacrolimus (Prograf) 1 mg BID ORAL 06/18/16 09:00 07/18/16 08:59 06/19/16 09:28 Zolpidem Tartrate (Ambien) 5 mg HSPRN PRN ORAL Insomnia 06/17/16 22:30 07/17/16 22:29 [facility]Alys[facility] NP Jun 19, 2016 12:21
[2016-06-19] MEDS: LORazepam Inj 2mg/ml 1ml IV PRN (13:13)
--- NOTE | 2016-06-19 17:40 | Infectious Diseases Prog Note ---
Assessment/Plan Problems: (1) Sepsis Assessment & Plan: with leukocytosis and hypotension, will broaden his antibiotics coverage and add daptomycin , continue meropenem for now, and await blood culture , will deescalate antibiotics based on his culture results, recommend transfer to [place] for higher level of care, D/W family and primary provider (2) Decubital ulcer Assessment & Plan: with sacral osteomyelitics due to E coli, pseudomonas and E.faecalis amp sensitive, continue meropenem for 6 weeks total, adjust dose as per GFR, pharmacy is following. continue local wound care , and off loading.he is evaluated by plastic for possible debridement , but not stable for surgical procedure, recommend transfer to [place] for higher level of care . (3) Hyperkalemia, diminished renal excretion Assessment & Plan: due to CKD, not improving, with bicarbonate and Kayexalate , may need HD, recommend transfer to [place] for higher level of care, since he is a transplant patient , and this may trigger arrhythmias , D/W renal (4) Anemia Assessment & Plan: S/P blood transfusion, monitor H&H, need to rule out GI source, recommend GI consult. (5) PVD (peripheral vascular disease) Assessment & Plan: S/P B/L AKA. (6) CKD (chronic kidney disease) Assessment & Plan: avoid nephrotoxic meds, monitor UOP, and renal function, renal is following (7) Heart transplant status Assessment & Plan: continue transplant meds , and adjust as per his GFR. (8) Fever Assessment & Plan: sepsis VS blood transfusion related , improved, will await blood culture , CXR was negative for any new infiltrates Subjective Constitutional: Denies: anorexia, chills, drenching sweats, fatigue, fever, no symptoms, other HEENT: Denies: congestion, coryza, dysphagia, hearing change, no symptoms, other, visual change Respiratory: Denies: dry cough, no symptoms, other, productive cough, shortness of breath Cardiovascular: Denies: chest pain, dyspnea on exertion, no symptoms, other, palpitations Gastrointestinal/Abdominal: Denies: bloating, blood in stool, constipation, diarrhea, nausea, no symptoms, other, vomiting Genitourinary: Denies: dysuria, frequency, hematuria, no symptoms, nocturia, other Neurologic: Denies: confusion, headache, no symptoms, numbness, other, weakness Psychiatric: Denies: anxiety, depression, no symptoms, other Skin: Reports: ulcer Endocrine: Denies: feels cold, feels warm, no symptoms, other Musculoskeletal: Reports: pain Allergies: Coded Allergies: ADHESIVE TAPE (Verified Allergy, Unknown, Rash, 05/27/16) PLASTIC TAPE-COPIED FROM UNCODED SECTION PENICILLINS (Verified Allergy, Unknown, 06/20/16) PROCAINE (Verified Allergy, Unknown, Rash, 08/19/14) COPIED FRON UNCODED Subjective he was comfortable, resting in bed, denied any symptoms currently. Objective Vital Signs Last 24 Hour Vital Signs Date Time Temp Pulse Resp B/P Pulse Ox O2 Delivery O2 Flow Rate FiO2 06/19/16 16:25 97.3 06/19/16 12:00 91 06/19/16 12:00 97.3 69 20 88/52 95 Room Air 06/19/16 08:00 94 06/19/16 08:00 98.2 92 20 89/55 97 Nasal Cannula 1.0 06/19/16 04:00 97.0 93 18 99/57 06/19/16 04:00 93 06/19/16 00:30 97.0 96/56 06/19/16 00:00 96.7 92 18 101/46 96 Nasal Cannula 2.0 06/19/16 00:00 94 06/18/16 21:00 97.5 06/18/16 20:07 101.3 112 21 110/55 95 Room Air 06/18/16 20:00 109 06/18/16 20:00 101.5 06/18/16 19:47 97.3 06/18/16 18:30 102.6 Height (Feet): 5 Height (Inches): 8.00 Weight (Pounds): 193 General Appearance: WD/WN, no acute distress HEENT: normocephalic, atraumatic, anicteric, mucous membranes moist, PERRL Respiratory/Chest: chest wall non-tender, lungs clear, normal breath sounds, no respiratory distress, no accessory muscle use Cardiovascular: normal peripheral pulses, normal rate, regular rhythm, no gallop/murmur, no JVD Abdomen: normal bowel sounds, soft, non tender, no organomegaly, non distended , no mass, no scars Extremities: no cyanosis, no clubbing Skin: no rash, no lesions, ulcers Microbiology Date/Time Source Procedure Growth Status 06/18/16 04:00 Urine,Clean Catch Urine Culture - Preliminary NO GROWTH Resulted Laboratory Tests Test 06/18/16 19:20 06/19/16 06:30 06/19/16 08:25 White Blood Count 17.5 K/UL (4.8-10.8) #H 14.6 K/UL (4.8-10.8) H Red Blood Count 3.60 M/UL (4.70-6.10) L 3.30 M/UL (4.70-6.10) L Hemoglobin 10.2 G/DL (14.2-18.0) #L 9.5 G/DL (14.2-18.0) L Hematocrit 34.2 % (42.0-52.0) #L 31.3 % (42.0-52.0) L Mean Corpuscular Volume 95 FL (80-99) 95 FL (80-99) Mean Corpuscular Hemoglobin 28.3 PG (27.0-31.0) 28.7 PG (27.0-31.0) Mean Corpuscular Hemoglobin Concent 29.8 G/DL (32.0-36.0) L 30.3 G/DL (32.0-36.0) L Red Cell Distribution Width 16.3 % (11.6-14.8) H 16.3 % (11.6-14.8) H Platelet Count 364 K/UL (150-450) 298 K/UL (150-450) Mean Platelet Volume 5.1 FL (6.5-10.1) L 5.4 FL (6.5-10.1) L Neutrophils (%) (Auto) 95.8 % (45.0-75.0) H % (45.0-75.0) Lymphocytes (%) (Auto) 1.6 % (20.0-45.0) L % (20.0-45.0) Monocytes (%) (Auto) 1.9 % (1.0-10.0) % (1.0-10.0) Eosinophils (%) (Auto) 0.3 % (0.0-3.0) % (0.0-3.0) Basophils (%) (Auto) 0.4 % (0.0-2.0) % (0.0-2.0) Differential Total Cells Counted 100 Neutrophils % (Manual) 85 % (45-75) H Lymphocytes % (Manual) 8 % (20-45) L Monocytes % (Manual) 3 % (1-10) Eosinophils % (Manual) 0 % (0-3) Basophils % (Manual) 0 % (0-2) Band Neutrophils 4 % (0-8) Platelet Estimate Adequate Platelet Morphology Normal Polychromasia 1+ Hypochromasia 1+ Anisocytosis 1+ Sodium Level 138 mEQ/L (135-145) Potassium Level 6.9 mEQ/L (3.4-4.9) *H 6.9 mEQ/L (3.4-4.9) *H Chloride Level 105 mEQ/L (98-107) Carbon Dioxide Level 11 mEQ/L (20-30) L Anion Gap 22 (5-15) H Blood Urea Nitrogen 85 mg/dL (7-23) H Creatinine 3.7 mg/dL (0.7-1.2) H Estimat Glomerular Filtration Rate mL/min (>60) Glucose Level 173 mg/dL (74-106) #H Hemoglobin A1c 5.5 % (< 6.0) Uric Acid 7.2 mg/dL (3.0-7.5) Calcium Level 8.7 mg/dL (8.6-10.2) Phosphorus Level 4.3 mg/dL (2.5-4.8) Magnesium Level 1.8 mg/dL (1.7-2.5) Total Bilirubin 0.2 mg/dL (0.0-1.2) Gamma Glutamyl Transpeptidase 25 U/L (8-61) Aspartate Amino Transf (AST/SGOT) 17 U/L (5-40) Alanine Aminotransferase (ALT/SGPT) 14 U/L (3-41) Alkaline Phosphatase 79 U/L (40-129) Total Creatine Kinase 167 U/L (38-174) C-Reactive Protein, Quantitative 17.3 mg/dL (< 0.5) H Pro-B-Type Natriuretic Peptide 57761 pg/mL (0-450) H Total Protein 5.9 g/dL (6.6-8.7) L Albumin 2.8 g/dL (3.5-5.2) L Globulin 3.1 g/dL Albumin/Globulin Ratio 0.9 (1.0-2.7) L Triglycerides Level 142 mg/dL (< 150) Cholesterol Level 76 mg/dL (< 200) LDL Cholesterol 23 mg/dL (60-99) L HDL Cholesterol 25 mg/dL (> 60) Cholesterol/HDL Ratio 3.0 (3.3-4.4) L Vitamin B12 Level 459 pg/mL (211-946) Folate Pending Cortisol AM Sample Pending Current Medications Medications (Trade) Dose Ordered Sig/Koffi Route PRN Reason Start Time Stop Time Status Last Admin Dose Admin Acetaminophen (Tylenol) 650 mg Q4H PRN ORAL fever 06/17/16 22:30 07/17/16 22:29 06/18/16 18:48 Acetaminophen/ Hydrocodone Bitart ([place] 5/325) 1 tab Q4H PRN ORAL Moderate Pain (Pain Scale 4-6) 06/19/16 09:00 06/26/16 08:59 06/19/16 09:30 Clopidogrel Bisulfate (Plavix) 75 mg DAILY ORAL 06/18/16 09:00 07/18/16 08:59 06/19/16 09:28 Collagenase (Santyl) 1 applic DAILY TOPIC 06/18/16 16:00 07/18/16 15:59 06/19/16 09:44 Daptomycin/Sodium Chloride (Cubicin/Sodium Chloride) 55 ml @ 110 mls/hr Q48H IV 06/19/16 10:00 06/26/16 09:59 06/19/16 10:45 Dextrose (Dextrose 50%) STAT PRN IV Hypoglycemia 06/17/16 22:30 07/17/16 22:29 Insulin Aspart BEFORE MEALS AND HS SUBQ 06/18/16 06:30 07/18/16 06:29 06/19/16 16:47 Iron Sucrose/ Sodium Chloride (Venofer/Sodium Chloride) 60 ml @ 240 mls/hr BEDTIME IVPB 06/19/16 21:00 06/21/16 21:14 Levofloxacin (Levaquin) 100 ml @ 100 mls/hr Q48H IVPB 06/19/16 14:00 06/26/16 13:59 06/19/16 14:24 Lorazepam (Ativan 2mg/ml 1ml) 0.5 mg Q4H PRN IV For Anxiety 06/17/16 22:30 06/24/16 22:29 06/19/16 13:13 Meropenem 500 mg/ Sodium Chloride 55 ml @ 110 mls/hr Q12H IVPB 06/18/16 12:00 06/23/16 11:59 06/19/16 12:55 Morphine Sulfate 1 mg 1 mg Q4H PRN IVP Severe Pain (Pain Scale 7-10) 06/19/16 11:00 06/26/16 10:59 06/19/16 15:55 Mycophenolate Mofetil (Cellcept) 500 mg BID ORAL 06/18/16 09:00 07/18/16 08:59 06/19/16 09:31 Ondansetron HCl (Zofran) 4 mg Q6H PRN IVP Nausea & Vomiting 06/17/16 22:30 07/17/16 22:29 Pantoprazole (Protonix) 40 mg ACBREAKFAST ORAL 06/18/16 14:30 07/18/16 14:29 06/19/16 06:34 Polyethylene Glycol (Miralax) 17 gm HSPRN PRN ORAL Constipation 06/17/16 22:30 07/17/16 22:29 Sodium Hypochlorite 1 applic 1 applic DAILY TOPIC 06/18/16 16:00 07/18/16 15:59 06/19/16 09:43 Sodium Chloride 1,000 ml @ 75 mls/hr [id number] IV 06/19/16 11:00 07/19/16 10:59 06/19/16 12:20 Tacrolimus (Prograf) 1 mg BID ORAL 06/18/16 09:00 07/18/16 08:59 06/19/16 09:28 Zolpidem Tartrate (Ambien) 5 mg HSPRN PRN ORAL Insomnia 06/17/16 22:30 07/17/16 22:29 Jose Mott M.D. Jun 19, 2016 17:40
[2016-06-19] MEDS: Iron Sucrose 100 MG in NS 55 ML IVPB SCH (21:46)
[2016-06-20] VITALS (7 sets, daily range): BP systolic 82–142; BP diastolic 43–95
[2016-06-20] MEDS: Meropenem 500mg in NS 55ml IVPB SCH ×2 (00:13→11:36)
[2016-06-20] MEDS: NovoLOG Insulin Flexpen SUBQ SCH ×4 (06:35→21:05)
[2016-06-20 07:10] LABS: MEAN CORPUSCULAR HEMOGLOBIN 28.5 PG (27.0-31.0); MEAN CORPUSCULAR VOLUME 95 FL (80-99); MEAN PLATELET VOLUME 6.1 FL (6.5-10.1); PLATELET COUNT 263 K/UL (150-450); RED BLOOD COUNT 3.04 M/UL (4.70-6.10); RED CELL DISTRIBUTION WIDTH 17.1 % (11.6-14.8); WHITE BLOOD COUNT 9.5 K/UL (4.8-10.8)
[2016-06-20 07:52] LABS: ALANINE AMINOTRANSFERASE 12 U/L (3-41); ALBUMIN/GLOBULIN RATIO 0.9 (1.0-2.7); ASPARTATE AMINO TRANSFERASE 15 U/L (5-40); CALCIUM 8.2 mg/dL (8.6-10.2); CARBON DIOXIDE 11 mEQ/L (20-30); CHLORIDE 104 mEQ/L (98-107); CREATININE 3.8 mg/dL (0.7-1.2); CRP QUANT 19.2 mg/dL (< 0.5); HEMOLYSIS 14; MAGNESIUM 1.8 mg/dL (1.7-2.5); PHOSPHORUS 5.5 mg/dL (2.5-4.8); SODIUM 138 mEQ/L (135-145); TOTAL PROTEIN 5.2 g/dL (6.6-8.7); URIC ACID 7.1 mg/dL (3.0-7.5)
[2016-06-20 08:02] LABS: ANION GAP 23 (5-15)
[2016-06-20 08:51] LABS: BAND NEUTROPHILS % (MANUAL) 0 % (0-8); BASOPHILS % (MANUAL) 0 % (0-2); EOSINOPHILS % (MANUAL) 1 % (0-3); LYMPHOCYTES % (MANUAL) 5 % (20-45); NEUTROPHILS % (MANUAL) 86 % (45-75); PLATELET ESTIMATE ADEQUATE; PLATELET MORPHOLOGY NORMAL; TOTAL CELLS COUNTED 100
[2016-06-20 08:52] LABS: ANISOCYTOSIS 1+; HYPOCHROMASIA 1+
[2016-06-20] MEDS: Mycophenolate 250mg cap ORAL SCH ×2 (08:54→17:23)
[2016-06-20] MEDS: Dakin's 0.5% (Full Strength) 16oz TOPIC SCH (08:57)
[2016-06-20] MEDS ORDERED: NS 275ml ONE (09:37)
[2016-06-20] MEDS ORDERED: Tubing IV Secondary IV ONE (09:37)
[2016-06-20] MEDS ORDERED: NS 550ML IV ONE (09:37)
[2016-06-20] MEDS ORDERED: Miralax 17gm pkt ORAL PRN (10:15)
--- NOTE | 2016-06-20 10:19 | Pulmonology Progress Note ---
Assessment/Plan Assessment/Plan ASSESSMENT likely sepsis hypotension, possible early septic shock acute renal failure on chronic kidney disease hyperkalemia acute anemia , s/p blood transfusion osteomyelitis DM CAD, s/p heart transplant PVD bilateral amputee PLAN OF CARE tele nephro follows additional IV bicarbonate IVF Kayexalate avoid nephroptotic, closely monitor renal parameters and lytes renal US no hydro, bilateral kidney normal echogenicity discussed with nephro ,may need HD if no improvement closely watch BP for possible early septic shock -stable anemia workup with low iron on Venofer x 3 doses, check stool OB x2 , CEA with mild elevation ID follows abx per ID blood cx pending , urine cx negative, UA + pyuria, + leukocyte esterase, but few bacteria , CXR no acute disease, source of sepsis likely 2 to osteo wound care plastic surgery eval appreciated pain management bowel regimen BS management with SS of insulin continue Plavix DVT prophylaxis ADDENDUM : ( at 1900) DISCUSSED WITH CARDIO, WHO SPOKE WITH HEART TRANSPLANT TEAM AT [facility] Hold Prograf, check level in am resume CellCept stop use of Benicar and Hctz at home case discussed and evaluated by supervising physician Subjective Allergies: Coded Allergies: ADHESIVE TAPE (Verified Allergy, Unknown, Rash, 05/27/16) PLASTIC TAPE-COPIED FROM UNCODED SECTION PENICILLINS (Verified Allergy, Unknown, 06/20/16) PROCAINE (Verified Allergy, Unknown, Rash, 08/19/14) COPIED FRON UNCODED Subjective leukocytosis resolved, afebrile renal parameters without change, K down to 6 HH trending down 8.7/28.9 despite iron denies chest pain, SOB, abdominal pain on 2/3 afternoon chills followed by fever, CBC rechecked- with leukocytosis blood cx drawn ID follows 06/19 -afebrile, leukocytosis trending down renal parameters without change hypotensive K-6.9 and patient initially declined Kayexalate due to fear of worsening decub 2 to diarrhea nephro treated in other way, however worsening hyperkalemia family agreed to Kayexalate treatment on 06/19 Objective Last 24 Hour Vital Signs Date Time Temp Pulse Resp B/P Pulse Ox O2 Delivery O2 Flow Rate FiO2 06/20/16 08:00 96 06/20/16 08:00 96.8 88 20 93/53 99 Room Air 06/20/16 04:00 97.9 69 20 142/95 97 Room Air 06/20/16 04:00 96 06/20/16 01:00 99 94/62 06/20/16 00:00 97.2 90 20 86/52 97 Room Air 06/20/16 00:00 93 06/19/16 20:00 96.2 92 18 95/57 97 Room Air 06/19/16 20:00 89 06/19/16 16:25 97.3 06/19/16 16:00 88 06/19/16 16:00 96.4 88 18 77/50 96 Room Air 06/19/16 12:00 91 06/19/16 12:00 97.3 69 20 88/52 95 Room Air Intake and Output 06/19/16 06/20/16 19:00 07:00 Intake Total 1454 ml 947.5 ml Output Total 250 ml Balance 1204 ml 947.5 ml Intake Oral 120 ml IV Total 1454 ml 827.5 ml Output Urine Total 250 ml # Voids 1 Objective General Appearance: no apparent distress, alert Lines, tubes and drains: PICC HEENT: normocephalic, atraumatic, anicteric, mucous membranes moist Neck: non-tender, supple Respiratory/Chest: chest wall non-tender, lungs clear, no respiratory distress , no accessory muscle use Cardiovascular/Chest: normal rate, SR on tele, regular rhythm Abdomen: normal bowel sounds, non tender, soft, obese Genitourinary/Rectal: mason Extremities: other - 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 Skin Exam: decub Neurologic: abnormal gait, bedridden, alert, oriented x 3, responsive Musculoskeletal: bilateral amputee Microbiology Date/Time Source Procedure Growth Status 06/18/16 04:00 Urine,Clean Catch Urine Culture - Final NO GROWTH AFTER 48 HOURS Complete Laboratory Tests 06/20/16 06:00: White Blood Count 9.5, Red Blood Count 3.04L, Hemoglobin 8.7L, Hematocrit 28.9L , Mean Corpuscular Volume 95, Mean Corpuscular Hemoglobin 28.5, Mean Corpuscular Hemoglobin Concent 30.0L, Red Cell Distribution Width 17.1H, Platelet Count 263, Mean Platelet Volume 6.1L, Neutrophils (%) (Auto) , Lymphocytes (%) (Auto) , Monocytes (%) (Auto) , Eosinophils (%) (Auto) , Basophils (%) (Auto) , Differential Total Cells Counted 100, Neutrophils % ( Manual) 86H, Lymphocytes % (Manual) 5L, Monocytes % (Manual) 8, Eosinophils % ( Manual) 1, Basophils % (Manual) 0, Band Neutrophils 0, Platelet Estimate Adequate, Platelet Morphology Normal, Hypochromasia 1+, Anisocytosis 1+, Sodium Level 138, Potassium Level 6.0*H, Chloride Level 104, Carbon Dioxide Level 11L, Anion Gap 23H, Blood Urea Nitrogen 89H, Creatinine 3.8H, Estimat Glomerular Filtration Rate , Glucose Level 180H, Lactic Acid Level 1.10, Uric Acid 7.1, Calcium Level 8.2L, Phosphorus Level 5.5H, Magnesium Level 1.8, Total Bilirubin < 0.2, Gamma Glutamyl Transpeptidase 20, Aspartate Amino Transf (AST/SGOT) 15, Alanine Aminotransferase (ALT/SGPT) 12, Alkaline Phosphatase 69, Total Creatine Kinase 78, C-Reactive Protein, Quantitative 19.2H, Pro-B-Type Natriuretic Peptide > 27737G, Total Protein 5.2L, Albumin 2.5L, Globulin 2.7, Albumin/ Globulin Ratio 0.9L Current Medications Medications (Trade) Dose Ordered Sig/Koffi Route PRN Reason Start Time Stop Time Status Last Admin Dose Admin Acetaminophen (Tylenol) 650 mg Q4H PRN ORAL fever 06/17/16 22:30 07/17/16 22:29 06/18/16 18:48 Acetaminophen/ Hydrocodone Bitart ([place] 5/325) 1 tab Q4H PRN ORAL Moderate Pain (Pain Scale 4-6) 06/19/16 09:00 06/26/16 08:59 06/19/16 09:30 Clopidogrel Bisulfate (Plavix) 75 mg DAILY ORAL 06/18/16 09:00 07/18/16 08:59 06/20/16 08:54 Collagenase (Santyl) 1 applic DAILY TOPIC 06/18/16 16:00 07/18/16 15:59 06/20/16 08:57 Daptomycin/Sodium Chloride (Cubicin/Sodium Chloride) 55 ml @ 110 mls/hr Q48H IV 06/19/16 10:00 06/26/16 09:59 06/19/16 10:45 Dextrose (Dextrose 50%) STAT PRN IV Hypoglycemia 06/17/16 22:30 07/17/16 22:29 Insulin Aspart BEFORE MEALS AND HS SUBQ 06/18/16 06:30 07/18/16 06:29 06/20/16 06:35 Iron Sucrose/ Sodium Chloride (Venofer/Sodium Chloride) 60 ml @ 240 mls/hr BEDTIME IVPB 06/19/16 21:00 06/21/16 21:14 06/19/16 21:46 Levofloxacin (Levaquin) 100 ml @ 100 mls/hr Q48H IVPB 06/19/16 14:00 06/26/16 13:59 06/19/16 14:24 Lorazepam (Ativan 2mg/ml 1ml) 0.5 mg Q4H PRN IV For Anxiety 06/17/16 22:30 06/24/16 22:29 06/19/16 13:13 Meropenem 500 mg/ Sodium Chloride 55 ml @ 110 mls/hr Q12H IVPB 06/18/16 12:00 06/23/16 11:59 06/20/16 00:13 Morphine Sulfate 1 mg 1 mg Q4H PRN IVP Severe Pain (Pain Scale 7-10) 06/19/16 11:00 06/26/16 10:59 06/19/16 15:55 Mycophenolate Mofetil (Cellcept) 500 mg BID ORAL 06/18/16 09:00 07/18/16 08:59 06/20/16 08:54 Ondansetron HCl (Zofran) 4 mg Q6H PRN IVP Nausea & Vomiting 06/17/16 22:30 07/17/16 22:29 Pantoprazole (Protonix) 40 mg ACBREAKFAST ORAL 06/18/16 14:30 07/18/16 14:29 06/20/16 06:32 Polyethylene Glycol (Miralax) 17 gm HSPRN PRN ORAL Constipation 06/17/16 22:30 07/17/16 22:29 Sodium Bicarbonate/ Sodium Chloride (Sodium Bicarbonate/NS) 600 ml @ 1,200 mls/hr Q30M ONCE IV 06/20/16 11:00 06/20/16 11:29 Sodium Hypochlorite 1 applic 1 applic DAILY TOPIC 06/18/16 16:00 07/18/16 15:59 06/20/16 08:57 Sodium Chloride 1,000 ml @ 75 mls/hr [id number] IV 06/19/16 11:00 07/19/16 10:59 06/19/16 23:45 Sodium Citrate 30 ml 30 ml EVERY 6 HOURS ORAL 06/20/16 12:00 07/20/16 11:59 Tacrolimus (Prograf) 1 mg BID ORAL 06/18/16 09:00 07/18/16 08:59 06/20/16 08:54 Zolpidem Tartrate (Ambien) 5 mg HSPRN PRN ORAL Insomnia 06/17/16 22:30 07/17/16 22:29 06/19/16 22:03 [facility] ([facility])Alyssa NP Jun 20, 2016 10:19
[2016-06-20] MEDS ORDERED: SODIUM BICARBONATE IV ONE (11:00)
[2016-06-20] MEDS ORDERED: SODIUM CHLORIDE IV ONE (11:00)
--- NOTE | 2016-06-20 11:27 | General Progress Note ---
Assessment/Plan Status: unchanged Status Narrative Cr unchanged- K lower Assessment/Plan status: Acute Renal Failure- septic shock likely ! Superimposed on CRI due to DM / HTN PVD s/p amputation- Severe Anemia s/p Heart transplant sacral decub plan: Hydrate- transfused- family refuse kayexelate- IV NaHCo3 wound care- monitor renal parameters- avoid nephrotoxics per ID Subjective ROS Limited/Unobtainable: No Constitutional: Reports: malaise, weakness Respiratory: Reports: orthopnea Allergies: Coded Allergies: ADHESIVE TAPE (Verified Allergy, Unknown, Rash, 05/27/16) PLASTIC TAPE-COPIED FROM UNCODED SECTION PENICILLINS (Verified Allergy, Unknown, 06/20/16) PROCAINE (Verified Allergy, Unknown, Rash, 08/19/14) COPIED FRON UNCODED Objective Last 24 Hour Vital Signs Date Time Temp Pulse Resp B/P Pulse Ox O2 Delivery O2 Flow Rate FiO2 06/20/16 08:00 96 06/20/16 08:00 96.8 88 20 93/53 99 Room Air 06/20/16 04:00 97.9 69 20 142/95 97 Room Air 06/20/16 04:00 96 06/20/16 01:00 99 94/62 06/20/16 00:00 97.2 90 20 86/52 97 Room Air 06/20/16 00:00 93 06/19/16 20:00 96.2 92 18 95/57 97 Room Air 06/19/16 20:00 89 06/19/16 16:25 97.3 06/19/16 16:00 88 06/19/16 16:00 96.4 88 18 77/50 96 Room Air 06/19/16 12:00 91 06/19/16 12:00 97.3 69 20 88/52 95 Room Air Intake and Output 06/19/16 06/20/16 19:00 07:00 Intake Total 1454 ml 947.5 ml Output Total 250 ml Balance 1204 ml 947.5 ml Intake Oral 120 ml IV Total 1454 ml 827.5 ml Output Urine Total 250 ml # Voids 1 Laboratory Tests 06/20/16 06:00: White Blood Count 9.5, Red Blood Count 3.04L, Hemoglobin 8.7L, Hematocrit 28.9L , Mean Corpuscular Volume 95, Mean Corpuscular Hemoglobin 28.5, Mean Corpuscular Hemoglobin Concent 30.0L, Red Cell Distribution Width 17.1H, Platelet Count 263, Mean Platelet Volume 6.1L, Neutrophils (%) (Auto) , Lymphocytes (%) (Auto) , Monocytes (%) (Auto) , Eosinophils (%) (Auto) , Basophils (%) (Auto) , Differential Total Cells Counted 100, Neutrophils % ( Manual) 86H, Lymphocytes % (Manual) 5L, Monocytes % (Manual) 8, Eosinophils % ( Manual) 1, Basophils % (Manual) 0, Band Neutrophils 0, Platelet Estimate Adequate, Platelet Morphology Normal, Hypochromasia 1+, Anisocytosis 1+, Sodium Level 138, Potassium Level 6.0*H, Chloride Level 104, Carbon Dioxide Level 11L, Anion Gap 23H, Blood Urea Nitrogen 89H, Creatinine 3.8H, Estimat Glomerular Filtration Rate , Glucose Level 180H, Lactic Acid Level 1.10, Uric Acid 7.1, Calcium Level 8.2L, Phosphorus Level 5.5H, Magnesium Level 1.8, Total Bilirubin < 0.2, Gamma Glutamyl Transpeptidase 20, Aspartate Amino Transf (AST/SGOT) 15, Alanine Aminotransferase (ALT/SGPT) 12, Alkaline Phosphatase 69, Total Creatine Kinase 78, C-Reactive Protein, Quantitative 19.2H, Pro-B-Type Natriuretic Peptide > 58341I, Total Protein 5.2L, Albumin 2.5L, Globulin 2.7, Albumin/ Globulin Ratio 0.9L Height (Feet): 5 Height (Inches): 8.00 Weight (Pounds): 193 General Appearance: mild distress Neck: stiff neck Cardiovascular: tachycardia Respiratory/Chest: decreased breath sounds Abdomen: soft Objective no other changes in PE BRIJESH CALDERON Jun 20, 2016 11:27
[2016-06-20] MEDS: Sodium Citrate 30ml ORAL SCH ×2 (12:45→17:22)
[2016-06-20] MEDS: Docusate 100mg cap ORAL SCH ×2 (13:08→17:23)
[2016-06-20 14:23] LABS: OTHERS PATHOLOGIST COMMENT
--- NOTE | 2016-06-20 17:22 | Cardiology Progress Note ---
Assessment/Plan Assessment/Plan hyperkalemia due ro renal failure and over use fo benicar (two time duncan upper limit of max does recommneded) acure on chronic renal filure s/p heart tx dm with endorgan disease pvd obesity anemia htn agree with dc benicar hct in futuer consdier another agen tfor bp need trasplant service fu with renal insuf the dose of cellcept and prograf may need to be adjusted will leave [facility] for cardiac transplant service at [facility] to see if they can help he has nto seen then in a while [id number] Objective Last 24 Hour Vital Signs Date Time Temp Pulse Resp B/P Pulse Ox O2 Delivery O2 Flow Rate FiO2 06/20/16 16:00 97.0 60 18 96/60 96 06/20/16 12:00 97.0 98 18 104/56 97 Room Air 06/20/16 12:00 100 06/20/16 08:00 96 06/20/16 08:00 96.8 88 20 93/53 99 Room Air 06/20/16 04:00 97.9 69 20 142/95 97 Room Air 06/20/16 04:00 96 06/20/16 01:00 99 94/62 06/20/16 00:00 97.2 90 20 86/52 97 Room Air 06/20/16 00:00 93 06/19/16 20:00 96.2 92 18 95/57 97 Room Air 06/19/16 20:00 89 Intake and Output 06/19/16 06/20/16 19:00 07:00 Intake Total 1454 ml 947.5 ml Output Total 250 ml Balance 1204 ml 947.5 ml Intake Oral 120 ml IV Total 1454 ml 827.5 ml Output Urine Total 250 ml # Voids 1 Laboratory Tests Test 06/20/16 06:00 White Blood Count 9.5 K/UL (4.8-10.8) Red Blood Count 3.04 M/UL (4.70-6.10) L Hemoglobin 8.7 G/DL (14.2-18.0) L Hematocrit 28.9 % (42.0-52.0) L Mean Corpuscular Volume 95 FL (80-99) Mean Corpuscular Hemoglobin 28.5 PG (27.0-31.0) Mean Corpuscular Hemoglobin Concent 30.0 G/DL (32.0-36.0) L Red Cell Distribution Width 17.1 % (11.6-14.8) H Platelet Count 263 K/UL (150-450) Mean Platelet Volume 6.1 FL (6.5-10.1) L Neutrophils (%) (Auto) % (45.0-75.0) Lymphocytes (%) (Auto) % (20.0-45.0) Monocytes (%) (Auto) % (1.0-10.0) Eosinophils (%) (Auto) % (0.0-3.0) Basophils (%) (Auto) % (0.0-2.0) Differential Total Cells Counted 100 Neutrophils % (Manual) 86 % (45-75) H Lymphocytes % (Manual) 5 % (20-45) L Monocytes % (Manual) 8 % (1-10) Eosinophils % (Manual) 1 % (0-3) Basophils % (Manual) 0 % (0-2) Band Neutrophils 0 % (0-8) Platelet Estimate Adequate Platelet Morphology Normal Hypochromasia 1+ Anisocytosis 1+ Sodium Level 138 mEQ/L (135-145) Potassium Level 6.0 mEQ/L (3.4-4.9) *H Chloride Level 104 mEQ/L (98-107) Carbon Dioxide Level 11 mEQ/L (20-30) L Anion Gap 23 (5-15) H Blood Urea Nitrogen 89 mg/dL (7-23) H Creatinine 3.8 mg/dL (0.7-1.2) H Estimat Glomerular Filtration Rate mL/min (>60) Glucose Level 180 mg/dL (74-106) H Lactic Acid Level 1.10 mmol/L (0.66-2.22) Uric Acid 7.1 mg/dL (3.0-7.5) Calcium Level 8.2 mg/dL (8.6-10.2) L Phosphorus Level 5.5 mg/dL (2.5-4.8) H Magnesium Level 1.8 mg/dL (1.7-2.5) Total Bilirubin < 0.2 mg/dL (0.0-1.2) Gamma Glutamyl Transpeptidase 20 U/L (8-61) Aspartate Amino Transf (AST/SGOT) 15 U/L (5-40) Alanine Aminotransferase (ALT/SGPT) 12 U/L (3-41) Alkaline Phosphatase 69 U/L (40-129) Total Creatine Kinase 78 U/L (38-174) C-Reactive Protein, Quantitative 19.2 mg/dL (< 0.5) H Pro-B-Type Natriuretic Peptide > 71565 pg/mL (0-450) H Total Protein 5.2 g/dL (6.6-8.7) L Albumin 2.5 g/dL (3.5-5.2) L Globulin 2.7 g/dL Albumin/Globulin Ratio 0.9 (1.0-2.7) L Microbiology Date/Time Source Procedure Growth Status 06/18/16 19:20 Blood Blood Culture - Preliminary NO GROWTH AFTER 24 HOURS Resulted 06/18/16 04:00 Urine,Clean Catch Urine Culture - Final NO GROWTH AFTER 48 HOURS Complete HAILEE PATEL Jun 20, 2016 17:22
--- NOTE | 2016-06-20 17:45 | Infectious Diseases Prog Note ---
Assessment/Plan Problems: (1) Sepsis Assessment & Plan: with leukocytosis and hypotension, source most likely his sacral wound infection and osteomyelitis, will continue daptomycin and meropenem for now, pending blood culture result, will deescalate antibiotics based on his culture , not stable for surgical debridement as per plastic surgery.recommend immediate transfer to [place] for higher level of care , and to be followed by transplant team. 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 continue local wound care , and off loading.he is evaluated by plastic for possible debridement, but not stable to have it done (3) Hyperkalemia, diminished renal excretion Assessment & Plan: due to CKD, not improving on Kayexalate, and bicarbonate, recommend immediate transfer to [place] for higher level of care, discussed with Dr Granados, and Alyssa regalado . (4) Anemia Assessment & Plan: S/P blood transfusion, monitor H&H, need to rule out GI source, recommend GI consult. (5) PVD (peripheral vascular disease) Assessment & Plan: S/P B/L AKA. (6) CKD (chronic kidney disease) Assessment & Plan: stable, avoid nephrotoxic meds, monitor UOP, and renal function, renal is following (7) Heart transplant status Assessment & Plan: recommend cardiology consult, continue transplant meds , and adjust as per his GFR. (8) Fever Assessment & Plan: sepsis VS blood transfusion related , improved, blood culture is pending , CXR was negative for any new infiltrates Subjective Constitutional: Denies: anorexia, chills, drenching sweats, fatigue, fever, no symptoms, other HEENT: Denies: congestion, coryza, dysphagia, hearing change, no symptoms, other, visual change Respiratory: Denies: dry cough, no symptoms, other, productive cough, shortness of breath Breasts: Denies: discharge, no symptoms, other, swelling, tenderness Cardiovascular: Denies: chest pain, dyspnea on exertion, no symptoms, other, palpitations Gastrointestinal/Abdominal: Reports: bloating, constipation Genitourinary: Denies: dysuria, frequency, hematuria, no symptoms, nocturia, other Neurologic: Reports: confusion Psychiatric: Denies: anxiety, depression, no symptoms, other Skin: Reports: ulcer Allergies: Coded Allergies: ADHESIVE TAPE (Verified Allergy, Unknown, Rash, 05/27/16) PLASTIC TAPE-COPIED FROM UNCODED SECTION PENICILLINS (Verified Allergy, Unknown, 06/20/16) PROCAINE (Verified Allergy, Unknown, Rash, 08/19/14) COPIED FRON UNCODED Subjective he was up in bed alert and oriented, not in distress Objective Vital Signs Last 24 Hour Vital Signs Date Time Temp Pulse Resp B/P Pulse Ox O2 Delivery O2 Flow Rate FiO2 06/20/16 16:00 97.0 60 18 96/60 96 06/20/16 12:00 97.0 98 18 104/56 97 Room Air 06/20/16 12:00 100 06/20/16 08:00 96 06/20/16 08:00 96.8 88 20 93/53 99 Room Air 06/20/16 04:00 97.9 69 20 142/95 97 Room Air 06/20/16 04:00 96 06/20/16 01:00 99 94/62 06/20/16 00:00 97.2 90 20 86/52 97 Room Air 06/20/16 00:00 93 06/19/16 20:00 96.2 92 18 95/57 97 Room Air 06/19/16 20:00 89 Height (Feet): 5 Height (Inches): 8.00 Weight (Pounds): 193 General Appearance: WD/WN, no acute distress HEENT: normocephalic, atraumatic, anicteric, mucous membranes moist, PERRL Respiratory/Chest: chest wall non-tender, lungs clear, normal breath sounds, no respiratory distress, no accessory muscle use Cardiovascular: normal peripheral pulses, normal rate, regular rhythm, no gallop/murmur, no JVD Abdomen: normal bowel sounds, no organomegaly, no mass, no scars, hypoactive bowel sounds, distended Genitourinary: normal external genitalia Extremities: no cyanosis, no clubbing Skin: ulcers Microbiology Date/Time Source Procedure Growth Status 06/18/16 19:20 Blood Blood Culture - Preliminary NO GROWTH AFTER 24 HOURS Resulted 06/18/16 04:00 Urine,Clean Catch Urine Culture - Final NO GROWTH AFTER 48 HOURS Complete Laboratory Tests Test 06/20/16 06:00 White Blood Count 9.5 K/UL (4.8-10.8) Red Blood Count 3.04 M/UL (4.70-6.10) L Hemoglobin 8.7 G/DL (14.2-18.0) L Hematocrit 28.9 % (42.0-52.0) L Mean Corpuscular Volume 95 FL (80-99) Mean Corpuscular Hemoglobin 28.5 PG (27.0-31.0) Mean Corpuscular Hemoglobin Concent 30.0 G/DL (32.0-36.0) L Red Cell Distribution Width 17.1 % (11.6-14.8) H Platelet Count 263 K/UL (150-450) Mean Platelet Volume 6.1 FL (6.5-10.1) L Neutrophils (%) (Auto) % (45.0-75.0) Lymphocytes (%) (Auto) % (20.0-45.0) Monocytes (%) (Auto) % (1.0-10.0) Eosinophils (%) (Auto) % (0.0-3.0) Basophils (%) (Auto) % (0.0-2.0) Differential Total Cells Counted 100 Neutrophils % (Manual) 86 % (45-75) H Lymphocytes % (Manual) 5 % (20-45) L Monocytes % (Manual) 8 % (1-10) Eosinophils % (Manual) 1 % (0-3) Basophils % (Manual) 0 % (0-2) Band Neutrophils 0 % (0-8) Platelet Estimate Adequate Platelet Morphology Normal Hypochromasia 1+ Anisocytosis 1+ Sodium Level 138 mEQ/L (135-145) Potassium Level 6.0 mEQ/L (3.4-4.9) *H Chloride Level 104 mEQ/L (98-107) Carbon Dioxide Level 11 mEQ/L (20-30) L Anion Gap 23 (5-15) H Blood Urea Nitrogen 89 mg/dL (7-23) H Creatinine 3.8 mg/dL (0.7-1.2) H Estimat Glomerular Filtration Rate mL/min (>60) Glucose Level 180 mg/dL (74-106) H Lactic Acid Level 1.10 mmol/L (0.66-2.22) Uric Acid 7.1 mg/dL (3.0-7.5) Calcium Level 8.2 mg/dL (8.6-10.2) L Phosphorus Level 5.5 mg/dL (2.5-4.8) H Magnesium Level 1.8 mg/dL (1.7-2.5) Total Bilirubin < 0.2 mg/dL (0.0-1.2) Gamma Glutamyl Transpeptidase 20 U/L (8-61) Aspartate Amino Transf (AST/SGOT) 15 U/L (5-40) Alanine Aminotransferase (ALT/SGPT) 12 U/L (3-41) Alkaline Phosphatase 69 U/L (40-129) Total Creatine Kinase 78 U/L (38-174) C-Reactive Protein, Quantitative 19.2 mg/dL (< 0.5) H Pro-B-Type Natriuretic Peptide > 66380 pg/mL (0-450) H Total Protein 5.2 g/dL (6.6-8.7) L Albumin 2.5 g/dL (3.5-5.2) L Globulin 2.7 g/dL Albumin/Globulin Ratio 0.9 (1.0-2.7) L Current Medications Medications (Trade) Dose Ordered Sig/Koffi Route PRN Reason Start Time Stop Time Status Last Admin Dose Admin Acetaminophen (Tylenol) 650 mg Q4H PRN ORAL fever 06/17/16 22:30 07/17/16 22:29 06/18/16 18:48 Acetaminophen/ Hydrocodone Bitart ([place] 5/325) 1 tab Q4H PRN ORAL Moderate Pain (Pain Scale 4-6) 06/19/16 09:00 06/26/16 08:59 06/19/16 09:30 Clopidogrel Bisulfate (Plavix) 75 mg DAILY ORAL 06/18/16 09:00 07/18/16 08:59 06/20/16 08:54 Collagenase (Santyl) 1 applic DAILY TOPIC 06/18/16 16:00 07/18/16 15:59 06/20/16 08:57 Daptomycin/Sodium Chloride (Cubicin/Sodium Chloride) 55 ml @ 110 mls/hr Q48H IV 06/19/16 10:00 06/26/16 09:59 06/19/16 10:45 Dextrose (Dextrose 50%) STAT PRN IV Hypoglycemia 06/17/16 22:30 07/17/16 22:29 Docusate Sodium (Colace) 100 mg THREE TIMES A DAY ORAL 06/20/16 13:00 07/20/16 12:59 06/20/16 17:23 Insulin Aspart BEFORE MEALS AND HS SUBQ 06/18/16 06:30 07/18/16 06:29 06/20/16 16:04 Iron Sucrose/ Sodium Chloride (Venofer/Sodium Chloride) 60 ml @ 240 mls/hr BEDTIME IVPB 06/19/16 21:00 06/21/16 21:14 06/19/16 21:46 Lorazepam (Ativan 2mg/ml 1ml) 0.5 mg Q4H PRN IV For Anxiety 06/17/16 22:30 06/24/16 22:29 06/19/16 13:13 Meropenem 500 mg/ Sodium Chloride 55 ml @ 110 mls/hr Q12H IVPB 06/18/16 12:00 06/23/16 11:59 06/20/16 11:36 Morphine Sulfate 1 mg 1 mg Q4H PRN IVP Severe Pain (Pain Scale 7-10) 06/19/16 11:00 06/26/16 10:59 06/19/16 15:55 Mycophenolate Mofetil (Cellcept) 500 mg BID ORAL 06/18/16 09:00 07/18/16 08:59 06/20/16 17:23 Ondansetron HCl (Zofran) 4 mg Q6H PRN IVP Nausea & Vomiting 06/17/16 22:30 07/17/16 22:29 06/20/16 11:03 Pantoprazole (Protonix) 40 mg ACBREAKFAST ORAL 06/18/16 14:30 07/18/16 14:29 06/20/16 06:32 Polyethylene Glycol (Miralax) 17 gm DAILY PRN ORAL Constipation 06/20/16 10:15 07/20/16 10:14 Sodium Hypochlorite 1 applic 1 applic DAILY TOPIC 06/18/16 16:00 07/18/16 15:59 06/20/16 08:57 Sodium Chloride (Sodium Chloride 1000ml bag) 1,000 ml @ 75 mls/hr [id number] IV 06/19/16 11:00 07/19/16 10:59 06/20/16 13:10 Sodium Citrate (Bicitra) 30 ml EVERY 6 HOURS ORAL 06/20/16 12:00 07/20/16 11:59 06/20/16 17:22 Tacrolimus (Prograf) 1 mg BID ORAL 06/18/16 09:00 07/18/16 08:59 06/20/16 17:24 Zolpidem Tartrate (Ambien) 5 mg HSPRN PRN ORAL Insomnia 06/17/16 22:30 07/17/16 22:29 06/19/16 22:03 Jose Mott M.D. Jun 20, 2016 17:45
[2016-06-20] MEDS: Iron Sucrose 100 MG in NS 55 ML IVPB SCH (21:00)
[2016-06-21] VITALS: BP 96/57
[2016-06-21] MEDS: Meropenem 500mg in NS 55ml IVPB SCH ×2 (00:28→11:24)
[2016-06-21] MEDS: Sodium Citrate 30ml ORAL SCH ×4 (00:28→17:21)
[2016-06-21 04:00] VITALS: BP 109/60
[2016-06-21] MEDS: NovoLOG Insulin Flexpen SUBQ SCH ×4 (06:39→20:42)
[2016-06-21 07:43] LABS: MEAN CORPUSCULAR HEMOGLOBIN 28.8 PG (27.0-31.0); MEAN CORPUSCULAR HGB CONC 30.2 G/DL (32.0-36.0); MEAN CORPUSCULAR VOLUME 95 FL (80-99); MEAN PLATELET VOLUME 5.4 FL (6.5-10.1); PLATELET COUNT 252 K/UL (150-450); RED BLOOD COUNT 2.77 M/UL (4.70-6.10); RED CELL DISTRIBUTION WIDTH 17.2 % (11.6-14.8); WHITE BLOOD COUNT 6.8 K/UL (4.8-10.8)
[2016-06-21 07:58] VITALS: BP 105/56
[2016-06-21 08:12] LABS: ALANINE AMINOTRANSFERASE 11 U/L (3-41); ALBUMIN/GLOBULIN RATIO 0.9 (1.0-2.7); ANION GAP 19 (5-15); ASPARTATE AMINO TRANSFERASE 13 U/L (5-40); CARBON DIOXIDE 16 mEQ/L (20-30); CHLORIDE 108 mEQ/L (98-107); CREATININE 3.4 mg/dL (0.7-1.2); HEMOLYSIS 3; SODIUM 143 mEQ/L (135-145)
[2016-06-21 08:14] LABS: MAGNESIUM 1.8 mg/dL (1.7-2.5); PHOSPHORUS 5.5 mg/dL (2.5-4.8); URIC ACID 7.1 mg/dL (3.0-7.5)
[2016-06-21 08:47] LABS: CORTISOL LC 8.6 ug/dL (.)
[2016-06-21 08:52] LABS: BAND NEUTROPHILS % (MANUAL) 0 % (0-8); BASOPHILS % (MANUAL) 0 % (0-2); EOSINOPHILS % (MANUAL) 2 % (0-3); LYMPHOCYTES % (MANUAL) 13 % (20-45); NEUTROPHILS % (MANUAL) 80 % (45-75); PLATELET ESTIMATE ADEQUATE; TOTAL CELLS COUNTED 100
[2016-06-21 08:53] LABS: ANISOCYTOSIS 1+; PLATELET MORPHOLOGY NORMAL
[2016-06-21 08:54] LABS: HYPOCHROMASIA 1+
[2016-06-21] MEDS: Dakin's 0.5% (Full Strength) 16oz TOPIC SCH (09:18)
[2016-06-21] MEDS: Mycophenolate 250mg cap ORAL SCH ×2 (09:18→17:22)
[2016-06-21] MEDS: Docusate 100mg cap ORAL SCH ×3 (09:19→17:21)
--- NOTE | 2016-06-21 10:08 | General Progress Note ---
Assessment/Plan Status: unchanged Status Narrative Cr lower- Bicarb higher- BP stays low, K lower Assessment/Plan status: Acute Renal Failure- septic shock likely ! Superimposed on CRI due to DM / HTN PVD s/p amputation- Severe Anemia s/p Heart transplant sacral decub plan: slow Hydrate- check CXR transfused- Had kayexelate on Had IV NaHCo3 wound care- monitor renal parameters- avoid nephrotoxics per ID and cardiology Subjective ROS Limited/Unobtainable: No Constitutional: Reports: malaise, weakness Respiratory: Reports: orthopnea Allergies: Coded Allergies: ADHESIVE TAPE (Verified Allergy, Unknown, Rash, 05/27/16) PLASTIC TAPE-COPIED FROM UNCODED SECTION PENICILLINS (Verified Allergy, Unknown, 06/20/16) PROCAINE (Verified Allergy, Unknown, Rash, 08/19/14) COPIED FRON UNCODED Objective Last 24 Hour Vital Signs Date Time Temp Pulse Resp B/P Pulse Ox O2 Delivery O2 Flow Rate FiO2 06/21/16 07:58 97.7 96 20 105/56 95 Room Air 06/21/16 04:00 96 06/21/16 04:00 97.2 99 20 109/60 97 Room Air 06/21/16 00:00 97.7 96 18 96/57 97 Nasal Cannula 2.0 06/21/16 00:00 96 06/20/16 20:00 95 06/20/16 20:00 96.0 90 18 82/43 94 Room Air 06/20/16 16:00 97.0 60 18 96/60 96 06/20/16 16:00 95 06/20/16 12:00 97.0 98 18 104/56 97 Room Air 06/20/16 12:00 100 Intake and Output 06/20/16 06/21/16 19:00 07:00 Intake Total 935 ml 1195 ml Output Total 540 ml 450 ml Balance 395 ml 745 ml Intake Oral 100 ml IV Total 935 ml 1095 ml Output Urine Total 540 ml 450 ml Laboratory Tests 06/20/16 18:37: Miscellaneous Test 2 [Pending] 06/20/16 20:41: Stool Occult Blood [Pending] 06/21/16 06:00: White Blood Count 6.8, Red Blood Count 2.77L, Hemoglobin 8.0L, Hematocrit 26.4L , Mean Corpuscular Volume 95, Mean Corpuscular Hemoglobin 28.8, Mean Corpuscular Hemoglobin Concent 30.2L, Red Cell Distribution Width 17.2H, Platelet Count 252, Mean Platelet Volume 5.4L, Neutrophils (%) (Auto) , Lymphocytes (%) (Auto) , Monocytes (%) (Auto) , Eosinophils (%) (Auto) , Basophils (%) (Auto) , Differential Total Cells Counted 100, Neutrophils % ( Manual) 80H, Lymphocytes % (Manual) 13L, Monocytes % (Manual) 5, Eosinophils % ( Manual) 2, Basophils % (Manual) 0, Band Neutrophils 0, Platelet Estimate Adequate, Platelet Morphology Normal, Hypochromasia 1+, Anisocytosis 1+, Sodium Level 143, Potassium Level 5.0H, Chloride Level 108H, Carbon Dioxide Level 16L, Anion Gap 19H, Blood Urea Nitrogen 84H, Creatinine 3.4H, Estimat Glomerular Filtration Rate , Glucose Level 164H, Lactic Acid Level 0.70, Uric Acid 7.1, Calcium Level 8.0L, Phosphorus Level 5.5H, Magnesium Level 1.8, Total Bilirubin < 0.2, Aspartate Amino Transf (AST/SGOT) 13, Alanine Aminotransferase (ALT/SGPT ) 11, Alkaline Phosphatase 66, C-Reactive Protein, Quantitative 14.0H, Pro-B- Type Natriuretic Peptide > 71268L, Total Protein 5.0L, Albumin 2.4L, Globulin 2.6, Albumin/Globulin Ratio 0.9L, Cortisol [Pending] Height (Feet): 5 Height (Inches): 8.00 Weight (Pounds): 193 General Appearance: mild distress Cardiovascular: tachycardia Respiratory/Chest: decreased breath sounds Abdomen: distended Objective no other changes in PE BRIJESH CALDERON Jun 21, 2016 10:08
[2016-06-21] MEDS: DAPTOmycin 500 MG in NS 55 ML IV SCH (10:34)
[2016-06-21 11:36] VITALS: BP 109/59
--- NOTE | 2016-06-21 12:50 | Pulmonology Progress Note ---
Assessment/Plan Problems: (1) Sepsis (2) Acute encephalopathy (3) ATN (acute tubular necrosis) (4) History of heart transplant (5) Decubitus skin ulcer Assessment/Plan IV antibiotics check cultures check electrolytes wound care keep in teli because of episode of hypotension last night Subjective ROS Limited/Unobtainable: No Interval Events: feeling weak, wants probiotic Allergies: Coded Allergies: ADHESIVE TAPE (Verified Allergy, Unknown, Rash, 05/27/16) PLASTIC TAPE-COPIED FROM UNCODED SECTION PENICILLINS (Verified Allergy, Unknown, 06/20/16) PROCAINE (Verified Allergy, Unknown, Rash, 08/19/14) COPIED FRON UNCODED Objective Last 24 Hour Vital Signs Date Time Temp Pulse Resp B/P Pulse Ox O2 Delivery O2 Flow Rate FiO2 06/21/16 11:36 97.0 97 20 109/59 95 Nasal Cannula 2.0 06/21/16 07:58 97.7 96 20 105/56 95 Room Air 06/21/16 04:00 96 06/21/16 04:00 97.2 99 20 109/60 97 Room Air 06/21/16 00:00 97.7 96 18 96/57 97 Nasal Cannula 2.0 06/21/16 00:00 96 06/20/16 20:00 95 06/20/16 20:00 96.0 90 18 82/43 94 Room Air 06/20/16 16:00 97.0 60 18 96/60 96 06/20/16 16:00 95 Intake and Output 06/20/16 06/21/16 19:00 07:00 Intake Total 935 ml 1195 ml Output Total 540 ml 450 ml Balance 395 ml 745 ml Intake Oral 100 ml IV Total 935 ml 1095 ml Output Urine Total 540 ml 450 ml General Appearance: WD/WN HEENT: normocephalic, anicteric Respiratory/Chest: chest wall non-tender, lungs clear Cardiovascular: normal peripheral pulses, normal rate Abdomen: normal bowel sounds, soft, non tender Genitourinary: normal external genitalia Extremities: no cyanosis, no clubbing 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, no motor/sensory deficits Microbiology Date/Time Source Procedure Growth Status 06/18/16 19:20 Blood Blood Culture - Preliminary NO GROWTH AFTER 48 HOURS Resulted Laboratory Tests 06/20/16 18:37: Miscellaneous Test 2 [Pending] 06/20/16 20:41: Stool Occult Blood Negative 06/21/16 06:00: White Blood Count 6.8, Red Blood Count 2.77L, Hemoglobin 8.0L, Hematocrit 26.4L , Mean Corpuscular Volume 95, Mean Corpuscular Hemoglobin 28.8, Mean Corpuscular Hemoglobin Concent 30.2L, Red Cell Distribution Width 17.2H, Platelet Count 252, Mean Platelet Volume 5.4L, Neutrophils (%) (Auto) , Lymphocytes (%) (Auto) , Monocytes (%) (Auto) , Eosinophils (%) (Auto) , Basophils (%) (Auto) , Differential Total Cells Counted 100, Neutrophils % ( Manual) 80H, Lymphocytes % (Manual) 13L, Monocytes % (Manual) 5, Eosinophils % ( Manual) 2, Basophils % (Manual) 0, Band Neutrophils 0, Platelet Estimate Adequate, Platelet Morphology Normal, Hypochromasia 1+, Anisocytosis 1+, Sodium Level 143, Potassium Level 5.0H, Chloride Level 108H, Carbon Dioxide Level 16L, Anion Gap 19H, Blood Urea Nitrogen 84H, Creatinine 3.4H, Estimat Glomerular Filtration Rate , Glucose Level 164H, Lactic Acid Level 0.70, Uric Acid 7.1, Calcium Level 8.0L, Phosphorus Level 5.5H, Magnesium Level 1.8, Total Bilirubin < 0.2, Aspartate Amino Transf (AST/SGOT) 13, Alanine Aminotransferase (ALT/SGPT ) 11, Alkaline Phosphatase 66, C-Reactive Protein, Quantitative 14.0H, Pro-B- Type Natriuretic Peptide > 48805A, Total Protein 5.0L, Albumin 2.4L, Globulin 2.6, Albumin/Globulin Ratio 0.9L, Cortisol [Pending] Current Medications Medications (Trade) Dose Ordered Sig/Koffi Route PRN Reason Start Time Stop Time Status Last Admin Dose Admin Acetaminophen (Tylenol) 650 mg Q4H PRN ORAL fever 06/17/16 22:30 07/17/16 22:29 06/18/16 18:48 Acetaminophen/ Hydrocodone Bitart ([place] 5/325) 1 tab Q4H PRN ORAL Moderate Pain (Pain Scale 4-6) 06/19/16 09:00 06/26/16 08:59 06/19/16 09:30 Clopidogrel Bisulfate (Plavix) 75 mg DAILY ORAL 06/18/16 09:00 07/18/16 08:59 06/21/16 09:19 Collagenase (Santyl) 1 applic DAILY TOPIC 06/18/16 16:00 07/18/16 15:59 06/21/16 09:18 Daptomycin/Sodium Chloride (Cubicin/Sodium Chloride) 55 ml @ 110 mls/hr Q48H IV 06/19/16 10:00 06/26/16 09:59 06/21/16 10:34 Dextrose (Dextrose 50%) STAT PRN IV Hypoglycemia 06/17/16 22:30 07/17/16 22:29 Docusate Sodium (Colace) 100 mg THREE TIMES A DAY ORAL 06/20/16 13:00 07/20/16 12:59 06/21/16 09:19 Insulin Aspart BEFORE MEALS AND HS SUBQ 06/18/16 06:30 07/18/16 06:29 06/21/16 11:21 Iron Sucrose/ Sodium Chloride (Venofer/Sodium Chloride) 60 ml @ 240 mls/hr BEDTIME IVPB 06/19/16 21:00 06/21/16 21:14 06/20/16 21:00 Lorazepam (Ativan 2mg/ml 1ml) 0.5 mg Q4H PRN IV For Anxiety 06/17/16 22:30 06/24/16 22:29 06/19/16 13:13 Meropenem 500 mg/ Sodium Chloride 55 ml @ 110 mls/hr Q12H IVPB 06/18/16 12:00 06/23/16 11:59 06/21/16 11:24 Morphine Sulfate 1 mg 1 mg Q4H PRN IVP Severe Pain (Pain Scale 7-10) 06/19/16 11:00 06/26/16 10:59 06/19/16 15:55 Mycophenolate Mofetil (Cellcept) 500 mg TWICE A DAY ORAL 06/21/16 09:00 07/21/16 08:59 06/21/16 09:18 Ondansetron HCl (Zofran) 4 mg Q6H PRN IVP Nausea & Vomiting 06/17/16 22:30 07/17/16 22:29 06/20/16 11:03 Pantoprazole (Protonix) 40 mg ACBREAKFAST ORAL 06/18/16 14:30 07/18/16 14:29 06/21/16 06:39 Polyethylene Glycol (Miralax) 17 gm DAILY PRN ORAL Constipation 06/20/16 10:15 07/20/16 10:14 Sodium Hypochlorite 1 applic 1 applic DAILY TOPIC 06/18/16 16:00 07/18/16 15:59 06/21/16 09:18 Sodium Chloride (Sodium Chloride 1000ml bag) 1,000 ml @ 75 mls/hr [id number] IV 06/19/16 11:00 07/19/16 10:59 06/21/16 03:42 Sodium Citrate (Bicitra) 30 ml EVERY 6 HOURS ORAL 06/20/16 12:00 07/20/16 11:59 06/21/16 00:28 Zolpidem Tartrate (Ambien) 5 mg HSPRN PRN ORAL Insomnia 06/17/16 22:30 07/17/16 22:29 06/19/16 22:03 AMADO SCHULER Jun 21, 2016 12:50
[2016-06-21] MEDS: Lactobacillus-GG tablet ORAL SCH ×2 (13:13→17:23)
--- NOTE | 2016-06-21 14:29 | Diagnostic Imaging Report ---
Indication: Shortness of breath Technique: One view of the chest Comparison: 06/19/2016 Findings: There is questionably increased hazy opacity in the left mid and lower lung, although this could be an artifact of slightly different positioning and exposure technique. The heart remains enlarged. The left hemidiaphragm is slightly indistinct, atelectasis or pleural fluid the left lung base not excludable. Left arm PICC remains Impression: Possible developing parenchymal disease at the left lung base, versus artifact Possible left basilar atelectasis and/or pleural fluid Other stable findings as described
[2016-06-21 16:00] VITALS: BP 112/72
--- NOTE | 2016-06-21 17:03 | Infectious Diseases Prog Note ---
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 continue local wound care , and off loading. (2) Hyperkalemia, diminished renal excretion Assessment & Plan: improving, due to CKD, on bicarbonate and Kayexalate, renal is following (3) Anemia Assessment & Plan: S/P blood transfusion, monitor H&H, need to rule out GI source, recommend GI consult. (4) PVD (peripheral vascular disease) Assessment & Plan: S/P B/L AKA. (5) CKD (chronic kidney disease) Assessment & Plan: avoid nephrotoxic meds, monitor UOP, and renal function, renal is following (6) Heart transplant status Assessment & Plan: recommend to contact his heart transplant team at [place] for further recommendation, and possible transfer to [place] for higher level of care , continue transplant meds , and adjust as per his GFR. Subjective Constitutional: Denies: anorexia, chills, drenching sweats, fatigue, fever, no symptoms, other HEENT: Denies: congestion, coryza, dysphagia, hearing change, no symptoms, other, visual change Respiratory: Denies: dry cough, no symptoms, other, productive cough, shortness of breath Cardiovascular: Denies: chest pain, dyspnea on exertion, no symptoms, other, palpitations Gastrointestinal/Abdominal: Reports: constipation Genitourinary: Denies: dysuria, frequency, hematuria, no symptoms, nocturia, other Neurologic: Denies: confusion, headache, no symptoms, numbness, other, weakness Skin: Reports: ulcer Allergies: Coded Allergies: ADHESIVE TAPE (Verified Allergy, Unknown, Rash, 05/27/16) PLASTIC TAPE-COPIED FROM UNCODED SECTION PENICILLINS (Verified Allergy, Unknown, 06/20/16) PROCAINE (Verified Allergy, Unknown, Rash, 08/19/14) COPIED FRON UNCODED Subjective he was up in bed alert and oriented, not in distress Objective Vital Signs Last 24 Hour Vital Signs Date Time Temp Pulse Resp B/P Pulse Ox O2 Delivery O2 Flow Rate FiO2 06/21/16 16:00 97.9 93 20 112/72 95 Room Air 06/21/16 12:00 95 06/21/16 11:36 97.0 97 20 109/59 95 Nasal Cannula 2.0 06/21/16 08:00 95 06/21/16 07:58 97.7 96 20 105/56 95 Room Air 06/21/16 04:00 96 06/21/16 04:00 97.2 99 20 109/60 97 Room Air 06/21/16 00:00 97.7 96 18 96/57 97 Nasal Cannula 2.0 06/21/16 00:00 96 06/20/16 20:00 95 06/20/16 20:00 96.0 90 18 82/43 94 Room Air Height (Feet): 5 Height (Inches): 8.00 Weight (Pounds): 193 General Appearance: WD/WN, no acute distress HEENT: normocephalic, atraumatic, anicteric, mucous membranes moist, PERRL Respiratory/Chest: chest wall non-tender, lungs clear, normal breath sounds, no respiratory distress, no accessory muscle use Cardiovascular: normal peripheral pulses, normal rate, regular rhythm, no gallop/murmur, no JVD Abdomen: normal bowel sounds, soft, non tender, no organomegaly, non distended , no mass, no scars, tender Extremities: no cyanosis, no clubbing Skin: no rash, no lesions, no ulcers Neurologic/Psychiatric: alert, oriented x 3 Microbiology Date/Time Source Procedure Growth Status 06/18/16 19:20 Blood Blood Culture - Preliminary NO GROWTH AFTER 48 HOURS Resulted Laboratory Tests Test 06/20/16 18:37 06/20/16 20:41 06/21/16 06:00 Miscellaneous Test 2 Pending Stool Occult Blood Negative (NEGATIVE) White Blood Count 6.8 K/UL (4.8-10.8) Red Blood Count 2.77 M/UL (4.70-6.10) L Hemoglobin 8.0 G/DL (14.2-18.0) L Hematocrit 26.4 % (42.0-52.0) L Mean Corpuscular Volume 95 FL (80-99) Mean Corpuscular Hemoglobin 28.8 PG (27.0-31.0) Mean Corpuscular Hemoglobin Concent 30.2 G/DL (32.0-36.0) L Red Cell Distribution Width 17.2 % (11.6-14.8) H Platelet Count 252 K/UL (150-450) Mean Platelet Volume 5.4 FL (6.5-10.1) L Neutrophils (%) (Auto) % (45.0-75.0) Lymphocytes (%) (Auto) % (20.0-45.0) Monocytes (%) (Auto) % (1.0-10.0) Eosinophils (%) (Auto) % (0.0-3.0) Basophils (%) (Auto) % (0.0-2.0) Differential Total Cells Counted 100 Neutrophils % (Manual) 80 % (45-75) H Lymphocytes % (Manual) 13 % (20-45) L Monocytes % (Manual) 5 % (1-10) Eosinophils % (Manual) 2 % (0-3) Basophils % (Manual) 0 % (0-2) Band Neutrophils 0 % (0-8) Platelet Estimate Adequate Platelet Morphology Normal Hypochromasia 1+ Anisocytosis 1+ Sodium Level 143 mEQ/L (135-145) Potassium Level 5.0 mEQ/L (3.4-4.9) H Chloride Level 108 mEQ/L (98-107) H Carbon Dioxide Level 16 mEQ/L (20-30) L Anion Gap 19 (5-15) H Blood Urea Nitrogen 84 mg/dL (7-23) H Creatinine 3.4 mg/dL (0.7-1.2) H Estimat Glomerular Filtration Rate mL/min (>60) Glucose Level 164 mg/dL (74-106) H Lactic Acid Level 0.70 mmol/L (0.66-2.22) Uric Acid 7.1 mg/dL (3.0-7.5) Calcium Level 8.0 mg/dL (8.6-10.2) L Phosphorus Level 5.5 mg/dL (2.5-4.8) H Magnesium Level 1.8 mg/dL (1.7-2.5) Total Bilirubin < 0.2 mg/dL (0.0-1.2) Aspartate Amino Transf (AST/SGOT) 13 U/L (5-40) Alanine Aminotransferase (ALT/SGPT) 11 U/L (3-41) Alkaline Phosphatase 66 U/L (40-129) C-Reactive Protein, Quantitative 14.0 mg/dL (< 0.5) H Pro-B-Type Natriuretic Peptide > 62190 pg/mL (0-450) H Total Protein 5.0 g/dL (6.6-8.7) L Albumin 2.4 g/dL (3.5-5.2) L Globulin 2.6 g/dL Albumin/Globulin Ratio 0.9 (1.0-2.7) L Cortisol Pending Current Medications Medications (Trade) Dose Ordered Sig/Koffi Route PRN Reason Start Time Stop Time Status Last Admin Dose Admin Acetaminophen (Tylenol) 650 mg Q4H PRN ORAL fever 06/17/16 22:30 07/17/16 22:29 06/18/16 18:48 Acetaminophen/ Hydrocodone Bitart ([place] 5/325) 1 tab Q4H PRN ORAL Moderate Pain (Pain Scale 4-6) 06/19/16 09:00 06/26/16 08:59 06/19/16 09:30 Clopidogrel Bisulfate (Plavix) 75 mg DAILY ORAL 06/18/16 09:00 07/18/16 08:59 06/21/16 09:19 Collagenase (Santyl) 1 applic DAILY TOPIC 06/18/16 16:00 07/18/16 15:59 06/21/16 09:18 Daptomycin/Sodium Chloride (Cubicin/Sodium Chloride) 55 ml @ 110 mls/hr Q48H IV 06/19/16 10:00 06/26/16 09:59 06/21/16 10:34 Dextrose (Dextrose 50%) STAT PRN IV Hypoglycemia 06/17/16 22:30 07/17/16 22:29 Docusate Sodium (Colace) 100 mg THREE TIMES A DAY ORAL 06/20/16 13:00 07/20/16 12:59 06/21/16 13:13 Insulin Aspart BEFORE MEALS AND HS SUBQ 06/18/16 06:30 07/18/16 06:29 06/21/16 16:45 Iron Sucrose/ Sodium Chloride (Venofer/Sodium Chloride) 60 ml @ 240 mls/hr BEDTIME IVPB 06/19/16 21:00 06/21/16 21:14 06/20/16 21:00 Lactobacillus Acidophilus (Culturelle) 1 tab THREE TIMES A DAY ORAL 06/21/16 13:30 07/21/16 13:29 06/21/16 13:13 Lorazepam (Ativan 2mg/ml 1ml) 0.5 mg Q4H PRN IV For Anxiety 06/17/16 22:30 06/24/16 22:29 06/19/16 13:13 Meropenem 500 mg/ Sodium Chloride 55 ml @ 110 mls/hr Q12H IVPB 06/18/16 12:00 06/23/16 11:59 06/21/16 11:24 Morphine Sulfate 1 mg 1 mg Q4H PRN IVP Severe Pain (Pain Scale 7-10) 06/19/16 11:00 06/26/16 10:59 06/19/16 15:55 Mycophenolate Mofetil (Cellcept) 500 mg TWICE A DAY ORAL 06/21/16 09:00 07/21/16 08:59 06/21/16 09:18 Ondansetron HCl (Zofran) 4 mg Q6H PRN IVP Nausea & Vomiting 06/17/16 22:30 07/17/16 22:29 06/20/16 11:03 Pantoprazole (Protonix) 40 mg ACBREAKFAST ORAL 06/18/16 14:30 07/18/16 14:29 06/21/16 06:39 Polyethylene Glycol (Miralax) 17 gm DAILY PRN ORAL Constipation 06/20/16 10:15 07/20/16 10:14 Sodium Hypochlorite 1 applic 1 applic DAILY TOPIC 06/18/16 16:00 07/18/16 15:59 06/21/16 09:18 Sodium Chloride (Sodium Chloride 1000ml bag) 1,000 ml @ 75 mls/hr [id number] IV 06/19/16 11:00 07/19/16 10:59 06/21/16 16:43 Sodium Citrate (Bicitra) 30 ml EVERY 6 HOURS ORAL 06/20/16 12:00 07/20/16 11:59 06/21/16 00:28 Zolpidem Tartrate (Ambien) 5 mg HSPRN PRN ORAL Insomnia 06/17/16 22:30 07/17/16 22:29 06/19/16 22:03 Jose Mott M.D. Jun 21, 2016 17:03
--- NOTE | 2016-06-21 18:21 | General Progress Note ---
Assessment/Plan Status: stable Assessment/Plan Overall he is becoming more stable. Wound of the sacrum will still need debridement but is no longer emergent. He still needs to be optimized medically. For now, recommend continuing the dressing orders as prescribed, IV antibiotics, and correction of anemia. Will have the mattress evaluated as there are areas that feel quite hard. The nurse, Eladio, was informed and the retread builder is sending someone to inspect the bed and replace if necessary. Subjective Date patient seen: Jun 21, 2016 Time patient seen: 18:14 ROS Limited/Unobtainable: Yes Constitutional: Reports: malaise, weakness HEENT: Reports: no symptoms Respiratory: Reports: no symptoms Gastrointestinal/Abdominal: Reports: no symptoms Genitourinary: Reports: no symptoms Neurologic/Psychiatric: Reports: no symptoms Allergies: Coded Allergies: ADHESIVE TAPE (Verified Allergy, Unknown, Rash, 05/27/16) PLASTIC TAPE-COPIED FROM UNCODED SECTION PENICILLINS (Verified Allergy, Unknown, 06/20/16) PROCAINE (Verified Allergy, Unknown, Rash, 08/19/14) COPIED FRON UNCODED Subjective Follow up evaluation on patient with multiple pressure ulcers of the trunk. He has had improvement in WBC as well as potassium. He has been tolerating the dressings and is on a low airloss mattress. He has not had fevers of late. Objective Last 24 Hour Vital Signs Date Time Temp Pulse Resp B/P Pulse Ox O2 Delivery O2 Flow Rate FiO2 06/21/16 16:00 97.9 93 20 112/72 95 Room Air 06/21/16 12:00 95 06/21/16 11:36 97.0 97 20 109/59 95 Nasal Cannula 2.0 06/21/16 08:00 95 06/21/16 07:58 97.7 96 20 105/56 95 Room Air 06/21/16 04:00 96 06/21/16 04:00 97.2 99 20 109/60 97 Room Air 06/21/16 00:00 97.7 96 18 96/57 97 Nasal Cannula 2.0 06/21/16 00:00 96 06/20/16 20:00 95 06/20/16 20:00 96.0 90 18 82/43 94 Room Air Intake and Output 06/20/16 06/21/16 19:00 07:00 Intake Total 935 ml 1195 ml Output Total 540 ml 450 ml Balance 395 ml 745 ml Intake Oral 100 ml IV Total 935 ml 1095 ml Output Urine Total 540 ml 450 ml Laboratory Tests 06/20/16 18:37: Miscellaneous Test 2 [Pending] 06/20/16 20:41: Stool Occult Blood Negative 06/21/16 06:00: White Blood Count 6.8, Red Blood Count 2.77L, Hemoglobin 8.0L, Hematocrit 26.4L , Mean Corpuscular Volume 95, Mean Corpuscular Hemoglobin 28.8, Mean Corpuscular Hemoglobin Concent 30.2L, Red Cell Distribution Width 17.2H, Platelet Count 252, Mean Platelet Volume 5.4L, Neutrophils (%) (Auto) , Lymphocytes (%) (Auto) , Monocytes (%) (Auto) , Eosinophils (%) (Auto) , Basophils (%) (Auto) , Differential Total Cells Counted 100, Neutrophils % ( Manual) 80H, Lymphocytes % (Manual) 13L, Monocytes % (Manual) 5, Eosinophils % ( Manual) 2, Basophils % (Manual) 0, Band Neutrophils 0, Platelet Estimate Adequate, Platelet Morphology Normal, Hypochromasia 1+, Anisocytosis 1+, Sodium Level 143, Potassium Level 5.0H, Chloride Level 108H, Carbon Dioxide Level 16L, Anion Gap 19H, Blood Urea Nitrogen 84H, Creatinine 3.4H, Estimat Glomerular Filtration Rate , Glucose Level 164H, Lactic Acid Level 0.70, Uric Acid 7.1, Calcium Level 8.0L, Phosphorus Level 5.5H, Magnesium Level 1.8, Total Bilirubin < 0.2, Aspartate Amino Transf (AST/SGOT) 13, Alanine Aminotransferase (ALT/SGPT ) 11, Alkaline Phosphatase 66, C-Reactive Protein, Quantitative 14.0H, Pro-B- Type Natriuretic Peptide > [id number], Total Protein 5.0L, Albumin 2.4L, Globulin 2.6, Albumin/Globulin Ratio 0.9L, Cortisol [Pending] Height (Feet): 5 Height (Inches): 8.00 Weight (Pounds): 193 General Appearance: alert Respiratory/Chest: no respiratory distress Abdomen: non tender, soft Skin: other - Interval improvement in sacral and right ischial ulcers. Some devitalized subcutaneous tissue and muscle on the left medial buttock but no purulent drainage. Periskin with no erythema or warmth. Right ischial ulcer with less fibrotic debris at the base. No bleeding from either ulcer. JOE MARTEL Jun 21, 2016 18:21
[2016-06-21 19:00] VITALS: BP 119/75
--- NOTE | 2016-06-21 20:21 | Cardiology Progress Note ---
Assessment/Plan Assessment/Plan hyperkalemia due ro renal failure and over use fo benicar (two time duncan upper limit of max does recommneded) acure on chronic renal filure s/p heart tx dm with endorgan disease pvd obesity anemia htn agree with dc Benicar hct in futuer consider another agent for bp d/w trasplant service await prograf level sent to [facility] just called labs await call back with results on cell cept already if level not available will have to give also dose prograff until level is available d/w understands no benicar on dc in future Subjective Cardiovascular: Denies: chest pain, lightheadedness, palpitations Respiratory: Denies: cough Gastrointestinal/Abdominal: Denies: abdominal pain Genitourinary: Denies: burning Objective Last 24 Hour Vital Signs Date Time Temp Pulse Resp B/P Pulse Ox O2 Delivery O2 Flow Rate FiO2 06/21/16 19:00 98.1 99 20 119/75 95 Room Air 06/21/16 16:00 97.9 93 20 112/72 95 Room Air 06/21/16 12:00 95 06/21/16 11:36 97.0 97 20 109/59 95 Nasal Cannula 2.0 06/21/16 08:00 95 06/21/16 07:58 97.7 96 20 105/56 95 Room Air 06/21/16 04:00 96 06/21/16 04:00 97.2 99 20 109/60 97 Room Air 06/21/16 00:00 97.7 96 18 96/57 97 Nasal Cannula 2.0 06/21/16 00:00 96 General Appearance: WD/WN, alert Cardiovascular: normal rate, regular rhythm Respiratory/Chest: chest wall non-tender, lungs clear Abdomen: normal bowel sounds, non tender, soft Extremities: no swelling - amputation Intake and Output 06/20/16 06/21/16 18:59 06:59 Intake Total 860 ml 1270 ml Output Total 540 ml 450 ml Balance 320 ml 820 ml Intake Oral 100 ml IV Total 860 ml 1170 ml Output Urine Total 540 ml 450 ml Laboratory Tests Test 06/20/16 20:41 06/21/16 06:00 Stool Occult Blood Negative (NEGATIVE) White Blood Count 6.8 K/UL (4.8-10.8) Red Blood Count 2.77 M/UL (4.70-6.10) L Hemoglobin 8.0 G/DL (14.2-18.0) L Hematocrit 26.4 % (42.0-52.0) L Mean Corpuscular Volume 95 FL (80-99) Mean Corpuscular Hemoglobin 28.8 PG (27.0-31.0) Mean Corpuscular Hemoglobin Concent 30.2 G/DL (32.0-36.0) L Red Cell Distribution Width 17.2 % (11.6-14.8) H Platelet Count 252 K/UL (150-450) Mean Platelet Volume 5.4 FL (6.5-10.1) L Neutrophils (%) (Auto) % (45.0-75.0) Lymphocytes (%) (Auto) % (20.0-45.0) Monocytes (%) (Auto) % (1.0-10.0) Eosinophils (%) (Auto) % (0.0-3.0) Basophils (%) (Auto) % (0.0-2.0) Differential Total Cells Counted 100 Neutrophils % (Manual) 80 % (45-75) H Lymphocytes % (Manual) 13 % (20-45) L Monocytes % (Manual) 5 % (1-10) Eosinophils % (Manual) 2 % (0-3) Basophils % (Manual) 0 % (0-2) Band Neutrophils 0 % (0-8) Platelet Estimate Adequate Platelet Morphology Normal Hypochromasia 1+ Anisocytosis 1+ Sodium Level 143 mEQ/L (135-145) Potassium Level 5.0 mEQ/L (3.4-4.9) H Chloride Level 108 mEQ/L (98-107) H Carbon Dioxide Level 16 mEQ/L (20-30) L Anion Gap 19 (5-15) H Blood Urea Nitrogen 84 mg/dL (7-23) H Creatinine 3.4 mg/dL (0.7-1.2) H Estimat Glomerular Filtration Rate mL/min (>60) Glucose Level 164 mg/dL (74-106) H Lactic Acid Level 0.70 mmol/L (0.66-2.22) Uric Acid 7.1 mg/dL (3.0-7.5) Calcium Level 8.0 mg/dL (8.6-10.2) L Phosphorus Level 5.5 mg/dL (2.5-4.8) H Magnesium Level 1.8 mg/dL (1.7-2.5) Total Bilirubin < 0.2 mg/dL (0.0-1.2) Aspartate Amino Transf (AST/SGOT) 13 U/L (5-40) Alanine Aminotransferase (ALT/SGPT) 11 U/L (3-41) Alkaline Phosphatase 66 U/L (40-129) C-Reactive Protein, Quantitative 14.0 mg/dL (< 0.5) H Pro-B-Type Natriuretic Peptide > 82968 pg/mL (0-450) H Total Protein 5.0 g/dL (6.6-8.7) L Albumin 2.4 g/dL (3.5-5.2) L Globulin 2.6 g/dL Albumin/Globulin Ratio 0.9 (1.0-2.7) L Cortisol Pending HAILEE PATEL Jun 21, 2016 20:21
[2016-06-21] MEDS: Iron Sucrose 100 MG in NS 55 ML IVPB SCH (20:41)
[2016-06-22] VITALS: BP 105/61
[2016-06-22] MEDS: Meropenem 500mg in NS 55ml IVPB SCH ×3 (00:03→23:18)
[2016-06-22] MEDS: Sodium Citrate 30ml ORAL SCH ×5 (00:04→23:18)
[2016-06-22 04:00] VITALS: BP 130/67
[2016-06-22 05:58] LABS: BASOPHILS % (AUTO) 0.6 % (0.0-2.0); EOSINOPHILS % (AUTO) 1.2 % (0.0-3.0); LYMPHOCYTES % (AUTO) 9.6 % (20.0-45.0); MEAN CORPUSCULAR HEMOGLOBIN 28.6 PG (27.0-31.0); MEAN CORPUSCULAR HGB CONC 30.1 G/DL (32.0-36.0); MEAN CORPUSCULAR VOLUME 95 FL (80-99); MEAN PLATELET VOLUME 5.7 FL (6.5-10.1); MONOCYTES % (AUTO) 8.8 % (1.0-10.0); NEUTROPHILS % (AUTO) 79.8 % (45.0-75.0); PLATELET COUNT 230 K/UL (150-450); RED CELL DISTRIBUTION WIDTH 16.3 % (11.6-14.8); WHITE BLOOD COUNT 7.5 K/UL (4.8-10.8)
[2016-06-22] MEDS: NovoLOG Insulin Flexpen SUBQ SCH ×4 (06:47→21:29)
[2016-06-22 06:50] LABS: ALANINE AMINOTRANSFERASE 10 U/L (3-41); ALBUMIN/GLOBULIN RATIO 0.8 (1.0-2.7); ANION GAP 19 (5-15); ASPARTATE AMINO TRANSFERASE 11 U/L (5-40); CALCIUM 7.9 mg/dL (8.6-10.2); CARBON DIOXIDE 16 mEQ/L (20-30); CHLORIDE 110 mEQ/L (98-107); CREATININE 3.1 mg/dL (0.7-1.2); CRP QUANT 12.9 mg/dL (< 0.5); HEMOLYSIS 1; MAGNESIUM 1.6 mg/dL (1.7-2.5); PHOSPHORUS 4.2 mg/dL (2.5-4.8); POTASSIUM 4.8 mEQ/L (3.4-4.9); SODIUM 145 mEQ/L (135-145); URIC ACID 7.5 mg/dL (3.0-7.5)
[2016-06-22 07:45] VITALS: BP 112/66
[2016-06-22] MEDS: Docusate 100mg cap ORAL SCH ×4 (09:06→17:29)
[2016-06-22] MEDS: Lactobacillus-GG tablet ORAL SCH ×4 (09:06→17:29)
[2016-06-22] MEDS: Dakin's 0.5% (Full Strength) 16oz TOPIC SCH (09:06)
[2016-06-22] MEDS: Mycophenolate 250mg cap ORAL SCH ×2 (09:06→17:29)
--- NOTE | 2016-06-22 10:35 | Cardiology Progress Note ---
Assessment/Plan Assessment/Plan hyperkalemia due ro renal failure and over use fo benicar (two time [place] upper limit of max does recommneded) acure on chronic renal filure s/p heart tx dm with endorgan disease pvd obesity anemia htn agree with dc Benicar hct in futuer consider another agent for bp d/w trasplant service yest prograff level was last drawn on 06/20 at 1800 and sent to [facility] level was 7 that was a peak level as he had gotten a dose 1 hour earleir i just ordered another level adn started him on prografff of 0.5 mg bid as of thsi am until level comes back cr is better slightly last echo 2014 here will repeat Subjective Cardiovascular: Reports: chest pain - chest wall tenderness Respiratory: Denies: shortness of breath Gastrointestinal/Abdominal: Denies: abdominal pain Genitourinary: Denies: burning Objective Last 24 Hour Vital Signs Date Time Temp Pulse Resp B/P Pulse Ox O2 Delivery O2 Flow Rate FiO2 06/22/16 07:45 97.0 91 20 112/66 94 Room Air 06/22/16 04:00 94 06/22/16 04:00 98.1 95 20 130/67 95 Room Air 06/22/16 00:00 94 06/22/16 00:00 97.9 96 20 105/61 95 Room Air 06/21/16 20:00 95 06/21/16 19:00 98.1 99 20 119/75 95 Room Air 06/21/16 16:00 94 06/21/16 16:00 97.9 93 20 112/72 95 Room Air 06/21/16 12:00 95 06/21/16 11:36 97.0 97 20 109/59 95 Nasal Cannula 2.0 General Appearance: no apparent distress, alert, patient on isolation Neck: no JVD Cardiovascular: normal rate, regular rhythm, other - chest wall tender to palp Respiratory/Chest: lungs clear - to duncan extent possible he is unalb eto sit up Abdomen: non tender, soft Extremities: no swelling - s/p amputataion Intake and Output 06/21/16 06/22/16 19:00 07:00 Intake Total 1135 ml 1430 ml Output Total 1300 ml 1100 ml Balance -165 ml 330 ml Intake Oral 240 ml 240 ml IV Total 895 ml 1190 ml Output Urine Total 1300 ml 1100 ml Laboratory Tests Test 06/22/16 05:40 White Blood Count 7.5 K/UL (4.8-10.8) Red Blood Count 2.80 M/UL (4.70-6.10) L Hemoglobin 8.0 G/DL (14.2-18.0) L Hematocrit 26.6 % (42.0-52.0) L Mean Corpuscular Volume 95 FL (80-99) Mean Corpuscular Hemoglobin 28.6 PG (27.0-31.0) Mean Corpuscular Hemoglobin Concent 30.1 G/DL (32.0-36.0) L Red Cell Distribution Width 16.3 % (11.6-14.8) H Platelet Count 230 K/UL (150-450) Mean Platelet Volume 5.7 FL (6.5-10.1) L Neutrophils (%) (Auto) 79.8 % (45.0-75.0) H Lymphocytes (%) (Auto) 9.6 % (20.0-45.0) L Monocytes (%) (Auto) 8.8 % (1.0-10.0) Eosinophils (%) (Auto) 1.2 % (0.0-3.0) Basophils (%) (Auto) 0.6 % (0.0-2.0) Sodium Level 145 mEQ/L (135-145) Potassium Level 4.8 mEQ/L (3.4-4.9) Chloride Level 110 mEQ/L (98-107) H Carbon Dioxide Level 16 mEQ/L (20-30) L Anion Gap 19 (5-15) H Blood Urea Nitrogen 73 mg/dL (7-23) H Creatinine 3.1 mg/dL (0.7-1.2) H Estimat Glomerular Filtration Rate mL/min (>60) Glucose Level 153 mg/dL (74-106) H Lactic Acid Level 0.70 mmol/L (0.66-2.22) Uric Acid 7.5 mg/dL (3.0-7.5) Calcium Level 7.9 mg/dL (8.6-10.2) L Phosphorus Level 4.2 mg/dL (2.5-4.8) Magnesium Level 1.6 mg/dL (1.7-2.5) L Total Bilirubin 0.2 mg/dL (0.0-1.2) Aspartate Amino Transf (AST/SGOT) 11 U/L (5-40) Alanine Aminotransferase (ALT/SGPT) 10 U/L (3-41) Alkaline Phosphatase 69 U/L (40-129) C-Reactive Protein, Quantitative 12.9 mg/dL (< 0.5) H Pro-B-Type Natriuretic Peptide 31929 pg/mL (0-450) H Total Protein 5.0 g/dL (6.6-8.7) L Albumin 2.3 g/dL (3.5-5.2) L Globulin 2.7 g/dL Albumin/Globulin Ratio 0.8 (1.0-2.7) L HAILEE PATEL Jun 22, 2016 10:35
[2016-06-22 11:45] VITALS: BP 118/59
--- NOTE | 2016-06-22 12:25 | Pulmonology Progress Note ---
Assessment/Plan Problems: (1) Sepsis (2) Severe anemia (3) Acute encephalopathy (4) ATN (acute tubular necrosis) (5) History of heart transplant (6) Decubitus skin ulcer Assessment/Plan prbc today decrease IV antibiotics CXR showing some congestion check cultures check electrolytes wound care Subjective Interval Events: no new complains Allergies: Coded Allergies: ADHESIVE TAPE (Verified Allergy, Unknown, Rash, 05/27/16) PLASTIC TAPE-COPIED FROM UNCODED SECTION PENICILLINS (Verified Allergy, Unknown, 06/20/16) PROCAINE (Verified Allergy, Unknown, Rash, 08/19/14) COPIED FRON UNCODED Objective Last 24 Hour Vital Signs Date Time Temp Pulse Resp B/P Pulse Ox O2 Delivery O2 Flow Rate FiO2 06/22/16 11:45 97.0 93 20 118/59 95 Room Air 06/22/16 08:00 92 06/22/16 07:45 97.0 91 20 112/66 94 Room Air 06/22/16 04:00 94 06/22/16 04:00 98.1 95 20 130/67 95 Room Air 06/22/16 00:00 94 06/22/16 00:00 97.9 96 20 105/61 95 Room Air 06/21/16 20:00 95 06/21/16 19:00 98.1 99 20 119/75 95 Room Air 06/21/16 16:00 94 06/21/16 16:00 97.9 93 20 112/72 95 Room Air Intake and Output 06/21/16 06/22/16 19:00 07:00 Intake Total 1135 ml 1430 ml Output Total 1300 ml 1100 ml Balance -165 ml 330 ml Intake Oral 240 ml 240 ml IV Total 895 ml 1190 ml Output Urine Total 1300 ml 1100 ml General Appearance: WD/WN HEENT: normocephalic Respiratory/Chest: chest wall non-tender, lungs clear Abdomen: normal bowel sounds, soft, non tender Genitourinary: normal external genitalia Extremities: no clubbing Neurologic/Psychiatric: centrifugal screen tender II-XII grossly normal Lymphatic: no neck adenopathy Laboratory Tests 06/22/16 05:40: White Blood Count 7.5, Red Blood Count 2.80L, Hemoglobin 8.0L, Hematocrit 26.6L , Mean Corpuscular Volume 95, Mean Corpuscular Hemoglobin 28.6, Mean Corpuscular Hemoglobin Concent 30.1L, Red Cell Distribution Width 16.3H, Platelet Count 230, Mean Platelet Volume 5.7L, Neutrophils (%) (Auto) 79.8H, Lymphocytes (%) (Auto) 9.6L, Monocytes (%) (Auto) 8.8, Eosinophils (%) (Auto) 1.2, Basophils (%) (Auto) 0.6, Sodium Level 145, Potassium Level 4.8, Chloride Level 110H, Carbon Dioxide Level 16L, Anion Gap 19H, Blood Urea Nitrogen 73H, Creatinine 3.1H, Estimat Glomerular Filtration Rate , Glucose Level 153H, Lactic Acid Level 0.70, Uric Acid 7.5, Calcium Level 7.9L, Phosphorus Level 4.2 , Magnesium Level 1.6L, Total Bilirubin 0.2, Aspartate Amino Transf (AST/SGOT) 11, Alanine Aminotransferase (ALT/SGPT) 10, Alkaline Phosphatase 69, C-Reactive Protein, Quantitative 12.9H, Pro-B-Type Natriuretic Peptide 18405T, Total Protein 5.0L, Albumin 2.3L, Globulin 2.7, Albumin/Globulin Ratio 0.8L Current Medications Medications (Trade) Dose Ordered Sig/Koffi Route PRN Reason Start Time Stop Time Status Last Admin Dose Admin Acetaminophen (Tylenol) 650 mg Q4H PRN ORAL fever 06/17/16 22:30 07/17/16 22:29 06/18/16 18:48 Acetaminophen/ Hydrocodone Bitart ([place] 5/325) 1 tab Q4H PRN ORAL Moderate Pain (Pain Scale 4-6) 06/19/16 09:00 06/26/16 08:59 06/19/16 09:30 Clopidogrel Bisulfate (Plavix) 75 mg DAILY ORAL 06/18/16 09:00 07/18/16 08:59 06/22/16 09:06 Collagenase (Santyl) 1 applic DAILY TOPIC 06/18/16 16:00 07/18/16 15:59 06/22/16 09:06 Daptomycin/Sodium Chloride (Cubicin/Sodium Chloride) 55 ml @ 110 mls/hr Q48H IV 06/19/16 10:00 06/26/16 09:59 06/21/16 10:34 Dextrose (Dextrose 50%) STAT PRN IV Hypoglycemia 06/17/16 22:30 07/17/16 22:29 Docusate Sodium (Colace) 100 mg THREE TIMES A DAY ORAL 06/20/16 13:00 07/20/16 12:59 06/22/16 09:06 Insulin Aspart BEFORE MEALS AND HS SUBQ 06/18/16 06:30 07/18/16 06:29 06/22/16 11:52 Lactobacillus Acidophilus (Culturelle) 1 tab THREE TIMES A DAY ORAL 06/21/16 13:30 07/21/16 13:29 06/22/16 09:06 Lorazepam (Ativan 2mg/ml 1ml) 0.5 mg Q4H PRN IV For Anxiety 06/17/16 22:30 06/24/16 22:29 06/19/16 13:13 Meropenem/Sodium Chloride (Merrem/Sodium Chloride) 55 ml @ 110 mls/hr Q12H IVPB 06/18/16 12:00 06/23/16 11:59 06/22/16 11:56 Morphine Sulfate 1 mg 1 mg Q4H PRN IVP Severe Pain (Pain Scale 7-10) 06/19/16 11:00 06/26/16 10:59 06/19/16 15:55 Mycophenolate Mofetil (Cellcept) 500 mg TWICE A DAY ORAL 06/21/16 09:00 07/21/16 08:59 06/22/16 09:06 Ondansetron HCl (Zofran) 4 mg Q6H PRN IVP Nausea & Vomiting 06/17/16 22:30 07/17/16 22:29 06/20/16 11:03 Pantoprazole (Protonix) 40 mg ACBREAKFAST ORAL 06/18/16 14:30 07/18/16 14:29 06/22/16 06:17 Polyethylene Glycol (Miralax) 17 gm DAILY PRN ORAL Constipation 06/20/16 10:15 07/20/16 10:14 Sodium Hypochlorite 1 applic 1 applic DAILY TOPIC 06/18/16 16:00 07/18/16 15:59 06/22/16 09:06 Sodium Chloride (Sodium Chloride 1000ml bag) 1,000 ml @ 75 mls/hr [id number] IV 06/19/16 11:00 07/19/16 10:59 06/22/16 06:17 Sodium Citrate (Bicitra) 30 ml EVERY 6 HOURS ORAL 06/20/16 12:00 07/20/16 11:59 06/22/16 06:17 Tacrolimus (Prograf) 0.5 mg EVERY 12 HOURS ORAL 06/22/16 10:00 07/22/16 09:59 06/22/16 09:06 Zolpidem Tartrate (Ambien) 5 mg HSPRN PRN ORAL Insomnia 06/17/16 22:30 07/17/16 22:29 06/19/16 22:03 AMADO SCHULER Jun 22, 2016 12:25
--- NOTE | 2016-06-22 12:49 | General Progress Note ---
Assessment/Plan Status: stable - from renal stand Status Narrative Cr lower- K now WNL Assessment/Plan status: Acute Renal Failure- resolving septic shock resolving Superimposed on CRI due to DM / HTN PVD s/p amputation- Severe Anemia s/p Heart transplant sacral decub plan: slow Hydrate- check CXR transfused- wound care- monitor renal parameters- avoid nephrotoxics per ID and cardiology Bicitra- Subjective ROS Limited/Unobtainable: No Constitutional: Reports: malaise, weakness Allergies: Coded Allergies: ADHESIVE TAPE (Verified Allergy, Unknown, Rash, 05/27/16) PLASTIC TAPE-COPIED FROM UNCODED SECTION PENICILLINS (Verified Allergy, Unknown, 06/20/16) PROCAINE (Verified Allergy, Unknown, Rash, 08/19/14) COPIED FRON UNCODED Objective Last 24 Hour Vital Signs Date Time Temp Pulse Resp B/P Pulse Ox O2 Delivery O2 Flow Rate FiO2 06/22/16 11:45 97.0 93 20 118/59 95 Room Air 06/22/16 08:00 92 06/22/16 07:45 97.0 91 20 112/66 94 Room Air 06/22/16 04:00 94 06/22/16 04:00 98.1 95 20 130/67 95 Room Air 06/22/16 00:00 94 06/22/16 00:00 97.9 96 20 105/61 95 Room Air 06/21/16 20:00 95 06/21/16 19:00 98.1 99 20 119/75 95 Room Air 06/21/16 16:00 94 06/21/16 16:00 97.9 93 20 112/72 95 Room Air Intake and Output 06/21/16 06/22/16 19:00 07:00 Intake Total 1135 ml 1430 ml Output Total 1300 ml 1100 ml Balance -165 ml 330 ml Intake Oral 240 ml 240 ml IV Total 895 ml 1190 ml Output Urine Total 1300 ml 1100 ml Laboratory Tests 06/22/16 05:40: White Blood Count 7.5, Red Blood Count 2.80L, Hemoglobin 8.0L, Hematocrit 26.6L , Mean Corpuscular Volume 95, Mean Corpuscular Hemoglobin 28.6, Mean Corpuscular Hemoglobin Concent 30.1L, Red Cell Distribution Width 16.3H, Platelet Count 230, Mean Platelet Volume 5.7L, Neutrophils (%) (Auto) 79.8H, Lymphocytes (%) (Auto) 9.6L, Monocytes (%) (Auto) 8.8, Eosinophils (%) (Auto) 1.2, Basophils (%) (Auto) 0.6, Sodium Level 145, Potassium Level 4.8, Chloride Level 110H, Carbon Dioxide Level 16L, Anion Gap 19H, Blood Urea Nitrogen 73H, Creatinine 3.1H, Estimat Glomerular Filtration Rate , Glucose Level 153H, Lactic Acid Level 0.70, Uric Acid 7.5, Calcium Level 7.9L, Phosphorus Level 4.2 , Magnesium Level 1.6L, Total Bilirubin 0.2, Aspartate Amino Transf (AST/SGOT) 11, Alanine Aminotransferase (ALT/SGPT) 10, Alkaline Phosphatase 69, C-Reactive Protein, Quantitative 12.9H, Pro-B-Type Natriuretic Peptide [id number], Total Protein 5.0L, Albumin 2.3L, Globulin 2.7, Albumin/Globulin Ratio 0.8L Height (Feet): 5 Height (Inches): 8.00 Weight (Pounds): 193 General Appearance: mild distress Cardiovascular: tachycardia Respiratory/Chest: decreased breath sounds Abdomen: distended Objective no other changes in PE BRIJESH CALDERON Jun 22, 2016 12:49
[2016-06-22 16:00] VITALS: BP 139/71
--- NOTE | 2016-06-22 16:55 | Infectious Diseases Prog Note ---
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 continue local wound care , and off loading. (2) Hyperkalemia, diminished renal excretion Assessment & Plan: improving, due to CKD, on bicarbonate and Kayexalate, renal is following (3) Anemia Assessment & Plan: S/P blood transfusion, monitor H&H, need to rule out GI source, recommend GI consult. (4) PVD (peripheral vascular disease) Assessment & Plan: S/P B/L AKA. (5) CKD (chronic kidney disease) Assessment & Plan: avoid nephrotoxic meds, monitor UOP, and renal function, renal is following (6) Heart transplant status Assessment & Plan: recommend to contact his heart transplant team at [facility] for further recommendation, and possible transfer to [facility] for higher level of care , continue transplant meds , and adjust as per his GFR. (7) Constipation Assessment & Plan: will order KUB to rule out illeus. Subjective Constitutional: Reports: anorexia Gastrointestinal/Abdominal: Reports: bloating, constipation Allergies: Coded Allergies: ADHESIVE TAPE (Verified Allergy, Unknown, Rash, 05/27/16) PLASTIC TAPE-COPIED FROM UNCODED SECTION PENICILLINS (Verified Allergy, Unknown, 06/20/16) PROCAINE (Verified Allergy, Unknown, Rash, 08/19/14) COPIED FRON UNCODED All Systems: reviewed and negative except above Subjective he was not eating much as per , and had no bowel movement , he was up in bed alert and oriented, not in distress Objective Vital Signs Last 24 Hour Vital Signs Date Time Temp Pulse Resp B/P Pulse Ox O2 Delivery O2 Flow Rate FiO2 06/22/16 16:00 96.0 88 18 139/71 94 Room Air 06/22/16 12:00 93 06/22/16 11:45 97.0 93 20 118/59 95 Room Air 06/22/16 08:00 92 06/22/16 07:45 97.0 91 20 112/66 94 Room Air 06/22/16 04:00 94 06/22/16 04:00 98.1 95 20 130/67 95 Room Air 06/22/16 00:00 94 06/22/16 00:00 97.9 96 20 105/61 95 Room Air 06/21/16 20:00 95 06/21/16 19:00 98.1 99 20 119/75 95 Room Air Height (Feet): 5 Height (Inches): 8.00 Weight (Pounds): 193 General Appearance: WD/WN, no acute distress HEENT: normocephalic, atraumatic, anicteric, mucous membranes moist Respiratory/Chest: chest wall non-tender, lungs clear, normal breath sounds, no respiratory distress, no accessory muscle use Cardiovascular: normal peripheral pulses, normal rate, regular rhythm, no gallop/murmur Abdomen: soft, non tender, no organomegaly, no mass, hypoactive bowel sounds, distended Extremities: no cyanosis, no clubbing Skin: no rash, no lesions, ulcers Laboratory Tests Test 06/22/16 05:40 06/22/16 08:00 White Blood Count 7.5 K/UL (4.8-10.8) Red Blood Count 2.80 M/UL (4.70-6.10) L Hemoglobin 8.0 G/DL (14.2-18.0) L Hematocrit 26.6 % (42.0-52.0) L Mean Corpuscular Volume 95 FL (80-99) Mean Corpuscular Hemoglobin 28.6 PG (27.0-31.0) Mean Corpuscular Hemoglobin Concent 30.1 G/DL (32.0-36.0) L Red Cell Distribution Width 16.3 % (11.6-14.8) H Platelet Count 230 K/UL (150-450) Mean Platelet Volume 5.7 FL (6.5-10.1) L Neutrophils (%) (Auto) 79.8 % (45.0-75.0) H Lymphocytes (%) (Auto) 9.6 % (20.0-45.0) L Monocytes (%) (Auto) 8.8 % (1.0-10.0) Eosinophils (%) (Auto) 1.2 % (0.0-3.0) Basophils (%) (Auto) 0.6 % (0.0-2.0) Sodium Level 145 mEQ/L (135-145) Potassium Level 4.8 mEQ/L (3.4-4.9) Chloride Level 110 mEQ/L (98-107) H Carbon Dioxide Level 16 mEQ/L (20-30) L Anion Gap 19 (5-15) H Blood Urea Nitrogen 73 mg/dL (7-23) H Creatinine 3.1 mg/dL (0.7-1.2) H Estimat Glomerular Filtration Rate mL/min (>60) Glucose Level 153 mg/dL (74-106) H Lactic Acid Level 0.70 mmol/L (0.66-2.22) Uric Acid 7.5 mg/dL (3.0-7.5) Calcium Level 7.9 mg/dL (8.6-10.2) L Phosphorus Level 4.2 mg/dL (2.5-4.8) Magnesium Level 1.6 mg/dL (1.7-2.5) L Total Bilirubin 0.2 mg/dL (0.0-1.2) Aspartate Amino Transf (AST/SGOT) 11 U/L (5-40) Alanine Aminotransferase (ALT/SGPT) 10 U/L (3-41) Alkaline Phosphatase 69 U/L (40-129) C-Reactive Protein, Quantitative 12.9 mg/dL (< 0.5) H Pro-B-Type Natriuretic Peptide 37413 pg/mL (0-450) H Total Protein 5.0 g/dL (6.6-8.7) L Albumin 2.3 g/dL (3.5-5.2) L Globulin 2.7 g/dL Albumin/Globulin Ratio 0.8 (1.0-2.7) L Miscellaneous Test 2 Pending Current Medications Medications (Trade) Dose Ordered Sig/Koffi Route PRN Reason Start Time Stop Time Status Last Admin Dose Admin Acetaminophen (Tylenol) 650 mg Q4H PRN ORAL fever 06/17/16 22:30 07/17/16 22:29 06/18/16 18:48 Acetaminophen/ Hydrocodone Bitart ([place] 5/325) 1 tab Q4H PRN ORAL Moderate Pain (Pain Scale 4-6) 06/19/16 09:00 06/26/16 08:59 06/19/16 09:30 Clopidogrel Bisulfate (Plavix) 75 mg DAILY ORAL 06/18/16 09:00 07/18/16 08:59 2/7/17 09:06 Collagenase (Santyl) 1 applic DAILY TOPIC 06/18/16 16:00 07/18/16 15:59 06/22/16 09:06 Daptomycin/Sodium Chloride (Cubicin/Sodium Chloride) 55 ml @ 110 mls/hr Q48H IV 06/19/16 10:00 06/26/16 09:59 06/21/16 10:34 Dextrose (Dextrose 50%) STAT PRN IV Hypoglycemia 06/17/16 22:30 07/17/16 22:29 Docusate Sodium (Colace) 100 mg THREE TIMES A DAY ORAL 06/20/16 13:00 07/20/16 12:59 06/22/16 13:29 Epoetin Mars (Procrit (for non ESRD use)) 7,000 units TUE-TUE-TUE SUBQ 06/23/16 21:00 07/23/16 20:59 Insulin Aspart BEFORE MEALS AND HS SUBQ 06/18/16 06:30 07/18/16 06:29 06/22/16 11:52 Lactobacillus Acidophilus (Culturelle) 1 tab THREE TIMES A DAY ORAL 06/21/16 13:30 07/21/16 13:29 06/22/16 13:29 Lorazepam (Ativan 2mg/ml 1ml) 0.5 mg Q4H PRN IV For Anxiety 06/17/16 22:30 06/24/16 22:29 06/19/16 13:13 Meropenem/Sodium Chloride (Merrem/Sodium Chloride) 55 ml @ 110 mls/hr Q12H IVPB 06/18/16 12:00 06/27/16 11:59 06/22/16 11:56 Morphine Sulfate (Morphine Sulfate) 1 mg Q4H PRN IVP Severe Pain (Pain Scale 7-10) 06/19/16 11:00 06/26/16 10:59 06/19/16 15:55 Mycophenolate Mofetil (Cellcept) 500 mg TWICE A DAY ORAL 06/21/16 09:00 07/21/16 08:59 06/22/16 09:06 Ondansetron HCl (Zofran) 4 mg Q6H PRN IVP Nausea & Vomiting 06/17/16 22:30 07/17/16 22:29 06/20/16 11:03 Pantoprazole (Protonix) 40 mg ACBREAKFAST ORAL 06/18/16 14:30 07/18/16 14:29 06/22/16 06:17 Polyethylene Glycol (Miralax) 17 gm DAILY PRN ORAL Constipation 06/20/16 10:15 07/20/16 10:14 Sodium Hypochlorite 1 applic 1 applic DAILY TOPIC 06/18/16 16:00 07/18/16 15:59 06/22/16 09:06 Sodium Chloride (Sodium Chloride 1000ml bag) 1,000 ml @ 50 mls/hr Q20H IV 06/23/16 16:00 07/23/16 15:59 Sodium Citrate (Bicitra) 30 ml EVERY 6 HOURS ORAL 06/20/16 12:00 07/20/16 11:59 06/22/16 06:17 Tacrolimus 0.5 mg 0.5 mg EVERY 12 HOURS ORAL 06/22/16 10:00 07/22/16 09:59 06/22/16 09:06 Zolpidem Tartrate (Ambien) 5 mg HSPRN PRN ORAL Insomnia 06/17/16 22:30 07/17/16 22:29 06/19/16 22:03 Jose Mott M.D. Jun 22, 2016 16:55
--- NOTE | 2016-06-22 20:11 | Cardiology Report ---
APPROVED REPORT EXAM: Two-dimensional and M-mode echocardiogram with Doppler and color Doppler. INDICATION Chest Pain M-Mode DIMENSIONS IVSd1.6 (0.7-1.1cm)Left Atrium (MM)4.4 (1.6-4.0cm) LVDd5.0 (3.5-5.6cm)Aortic Root3.1 (2.0-3.7cm) PWd.9 (0.7-1.1cm)Aortic Cusp Exc.2.0 (1.5-2.0cm) LVDs4.2 (2.5-4.0cm) PWs1.3 cm Technically difficult study due to poor acoustic windows. Study quality precludes accurate assessment of regional wall motion. Normal left ventricular chamber size, systolic function and wall motion to extent visualized. Left ventricular ejection fraction estimated to be 50-55 %. No evidence of ventricular hypertrophy. Anterior Echo-free space, may be due to pericardial fat or effusion. No evidence of pericardial effusion. All other cardiac chamber sizes are within normal limits. Mild focal aortic valve sclerosis with adequate cusp excursion. Mildly thickened mitral valve leaflets with normal excursion. Mild mitral annulus and aortic root calcification. Pulmonic valve not well visualized. Normal tricuspid valve structure. IVC dilated at 2.3cm with minimal physiologic collapse. A color flow and spectral Doppler study was performed and revealed: Trace aortic regurgitation. Trace mitral regurgitation. Mitral inflow velocities indicates normal left ventricular diastolic function. Trace tricuspid regurgitation. Tricuspid systolic velocities suggests peak right ventricular systolic pressure of 20 mmHg. No pulmonic regurgitation present.
--- NOTE | 2016-06-22 20:23 | Cardiology Report ---
APPROVED REPORT EKG Measurement Heart [id number] Normal sinus rhythm Rightward axis Pulmonary disease pattern Abnormal ECG
--- NOTE | 2016-06-22 20:28 | Cardiology Report ---
APPROVED REPORT EKG Measurement Heart [id number] 166P-3 [id number] Normal sinus rhythm Low voltage QRS Borderline ECG
[2016-06-22] MEDS: LORazepam Inj 2mg/ml 1ml IV PRN (23:18)
[2016-06-23] VITALS (21 sets, daily range): BP systolic 87–131; BP diastolic 44–88
[2016-06-23 03:31] LABS: ABG ALLEN TEST POSITIVE; ABG BASE EXCESS -13.5; ABG PCO2 74.6 mmHg (35.0-45.0)
--- NOTE | 2016-06-23 04:41 | Emergency Room Report ---
History of Present Illness General Chief Complaint: Abnormal Labs Source: Family Member, Medical Record Present Illness HPI This is a 76-year-old male with a child cardiac history. He was admitted for acute renal failure and CHF. I was called by the telemetry nurse evaluate the patient for rest or distress. History is from the nursing staff, medical records. Unable to get history from this patient because of his medical condition. Per nursing staff she's been getting more lethargic and hypoxic. Has a lot of respiratory distress. Reason blood gas showed a pH of 7 with a CO2 in the 70s. On my arrival, patient is stuporous with severe respiratory distress. Proceeded to intubate the patient without a problem. He was sent to ICU. 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 Hx Asthma: Yes Hx Diabetes: Yes Hx Cancer: No Hx Gastrointestinal Problems: Yes Hx Neurological Problems: Yes Hx Weakness: Yes Hx Fatigue: Yes Review of Systems Eye: Denies: blurred vision, eye pain ENT: Denies: ear pain, nose congestion, throat swelling Respiratory: Reports: shortness of breath Cardiovascular: Denies: chest pain, palpitations Gastrointestinal: Denies: abdominal pain, diarrhea, nausea, vomiting Musculoskeletal: Denies: back pain, joint pain Skin: Denies: rash Neurological: Denies: headache, numbness Endocrine: Denies: increased thirst, increased urine Hematologic/Lymphatic: Denies: easy bruising All Other Systems: negative except mentioned in HPI Physical Exam Vital Signs Date Time Temp Pulse Resp B/P Pulse Ox O2 Delivery O2 Flow Rate FiO2 06/17/16 18:01 70 18 130/60 06/17/16 18:58 97.0 100 Room Air 06/19/16 00:00 2.0 06/23/16 04:05 100 [id number] EP Interpretation: abnormal General Appearance: severe distress Head: normocephalic, atraumatic Eyes: bilateral eye PERRL ENT: other - Whitish sputum and oropharynx Neck: full range of motion, supple, no meningismus Respiratory: respiratory distress, decreased breath sounds, accessory muscle use, rales Cardiovascular #1: regular rate, rhythm, no murmur Gastrointestinal: normal bowel sounds, non tender, no mass, no organomegaly, no bruit, non-distended Musculoskeletal: swelling - One plus edema Neurologic: other - No focal deficit Psychiatric: mood/affect normal Skin: warm/dry Procedures Critical Care Time Critical Care Time Critical care is mandated in this patient who presented with respiratory failure requiring intubation. Patient require my urgent intervention to attenuate the risks of respiratory collapse which may lead to cardiovascular collapse and . Critical care time is 35 minutes excluding any reportable procedure. Critical care time included evaluation, multiple reevaluation, looking at old charts, interpreting laboratory and diagnostic data, discussing case with patient and family and consultants, and charting. Intubation Intubation : Consent: Emergent Intubation Method: orotracheal Tube Size (cm): 8.0 Medications: Etomidate, Succinylcholine Breath Sounds after Intubation: equal Intubation Complications: no complications Post Intubation Xray: Yes Progress/Xray Impression: ETT in good position Attempts: One Patient Tolerated: Well Complications: None Medical Decision Making Diagnostic Impression: Primary Impression: Respiratory failure requiring intubation Additional Impression: CHF exacerbation Qualified Codes: I50.9 - Heart failure, unspecified ER Course Present with respiratory distress requiring intubation. This probably secondary to fluid overloaded. Patient now intubated and transferred ICU. Dr. Hahn made aware. He will take over the care. Chest X-Ray Diagnostic Results EP Interpretation: Yes Findings: no pneumothorax, other - Cardiomegaly with vascular congestion Number of Views: 1 Last Vital Signs Date Time Temp Pulse Resp B/P Pulse Ox O2 Delivery O2 Flow Rate FiO2 06/23/16 04:09 105 15 Mechanical Ventilator 100 06/23/16 00:00 97.2 131/88 95 06/21/16 11:36 2.0 Disposition: ADMITTED INPATIENT Condition: Critical Referrals: SHWETA SARKAR MD (PCP) EBONI TRAVIS M.D. Jun 23, 2016 04:41
[2016-06-23 05:10] LABS: ABG BASE EXCESS -11.8; ABG PCO2 37.4 mmHg (35.0-45.0)
[2016-06-23] MEDS: Sodium Citrate 30ml ORAL SCH ×4 (06:00→23:31)
[2016-06-23 06:01] LABS: MEAN CORPUSCULAR HEMOGLOBIN 29.2 PG (27.0-31.0); MEAN CORPUSCULAR HGB CONC 29.7 G/DL (32.0-36.0); MEAN CORPUSCULAR VOLUME 98 FL (80-99); MEAN PLATELET VOLUME 5.2 FL (6.5-10.1); PLATELET COUNT 240 K/UL (150-450); RED BLOOD COUNT 3.08 M/UL (4.70-6.10); WHITE BLOOD COUNT 12.8 K/UL (4.8-10.8)
[2016-06-23] MEDS: NovoLOG Insulin Flexpen SUBQ SCH ×4 (06:03→23:57)
[2016-06-23 06:14] LABS: ALANINE AMINOTRANSFERASE 12 U/L (3-41); ALBUMIN/GLOBULIN RATIO 0.7 (1.0-2.7); ANION GAP 18 (5-15); ASPARTATE AMINO TRANSFERASE 12 U/L (5-40); CALCIUM 8.1 mg/dL (8.6-10.2); CARBON DIOXIDE 14 mEQ/L (20-30); CHLORIDE 114 mEQ/L (98-107); CREATININE 2.9 mg/dL (0.7-1.2); HEMOLYSIS 6; POTASSIUM 5.4 mEQ/L (3.4-4.9); SODIUM 146 mEQ/L (135-145); TOTAL PROTEIN 5.3 g/dL (6.6-8.7)
[2016-06-23] MEDS: Mycophenolate 250mg cap ORAL SCH ×2 (08:50→18:08)
[2016-06-23] MEDS: Docusate 100mg cap ORAL SCH ×3 (08:50→18:08)
[2016-06-23] MEDS: Lactobacillus-GG tablet ORAL SCH ×3 (08:50→18:07)
[2016-06-23] MEDS: Dakin's 0.5% (Full Strength) 16oz TOPIC SCH (08:51)
[2016-06-23] MEDS ORDERED: Norco 5mg/325mg tab ORAL PRN (09:00)
[2016-06-23] MEDS: Meropenem 500 MG in NS 55 ML IVPB SCH ×2 (09:00→20:52)
[2016-06-23] MEDS ORDERED: Miralax 17gm pkt ORAL PRN (09:00)
[2016-06-23] MEDS: Pantoprazole Inj IVP SCH (09:00)
[2016-06-23 09:58] LABS: ANISOCYTOSIS 1+; HYPOCHROMASIA 1+; LYMPHOCYTES % (MANUAL) 4 % (20-45); MACROCYTES 1+; NEUTROPHILS % (MANUAL) 91 % (45-75); TOTAL CELLS COUNTED 100
[2016-06-23 09:59] LABS: BAND NEUTROPHILS % (MANUAL) 0 % (0-8); BASOPHILS % (MANUAL) 0 % (0-2); EOSINOPHILS % (MANUAL) 0 % (0-3); PLATELET ESTIMATE ADEQUATE
[2016-06-23 10:00] LABS: PLATELET MORPHOLOGY NORMAL
[2016-06-23] MEDS ORDERED: DAPTOmycin 500 MG in NS 55 ML IV SCH (10:00)
--- NOTE | 2016-06-23 10:36 | Pulmonolgy Critical Care Note ---
Critical Care - Asmt/Plan Problems: (1) Respiratory failure requiring intubation (2) Acute encephalopathy (3) ATN (acute tubular necrosis) (4) Sepsis (5) Decubitus skin ulcer Assessment & Plan: on hip, left and right tuberosity of pelvis, sacral area and scrotum stage 2 Respiratory: monitor respiratory rate, adjust FIO2, CXR Cardiac: continue pressors, continue to monitor HR/BP Renal: F/U I&O, keep IV fluid, check electrolytes Infectious Disease: check cultures, continue antibiotics Gastrointestinal: continue feedings/current rate Endocrine: monitor blood sugar, check TSH Hematologic: monitor H/H, transfuse if hgb<8.5 Neurologic: PRN Ativan, PRN Morphine, keep patient comfortable Affect: PRN ativan Prophylaxis: Heparin Time Spent (Minutes): 40 Notes Reviewed: cardio, 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, consultants Critical Care - Objective Last 24 Hour Vital Signs Date Time Temp Pulse Resp B/P Pulse Ox O2 Delivery O2 Flow Rate FiO2 06/23/16 10:00 81 22 120/67 100 Mechanical Ventilator 50 06/23/16 09:00 80 22 110/63 100 Mechanical Ventilator 50 06/23/16 08:57 85 23 50 06/23/16 08:00 97.5 84 22 98/56 100 Mechanical Ventilator 50 06/23/16 07:26 88 21 50 06/23/16 07:06 90 16 107/71 100 Mechanical Ventilator 100 06/23/16 06:00 91 16 87/72 100 Mechanical Ventilator 100 06/23/16 05:15 93 30 100 06/23/16 05:00 95 18 105/57 97 Mechanical Ventilator 100 06/23/16 05:00 50 06/23/16 04:10 100 06/23/16 04:09 105 15 Mechanical Ventilator 100 06/23/16 04:05 105 15 100 06/23/16 04:00 97.3 100 15 112/57 97 Mechanical Ventilator 100 06/23/16 04:00 100 06/23/16 00:00 97.2 96 20 131/88 95 Room Air 06/23/16 00:00 96 06/22/16 20:00 96 06/22/16 20:00 99.1 98 18 95 Room Air 06/22/16 16:00 94 06/22/16 16:00 96.0 88 18 139/71 94 Room Air 06/22/16 12:00 93 06/22/16 11:45 97.0 93 20 118/59 95 Room Air Status: awake Condition: critical HEENT: atraumatic Neck: full ROM Lungs: chest wall tender Heart: HR/BP stable, HR/BP unstable Abdomen: soft, non-tender Extremities: no C/C/E, edema Accucheck: 137 Critical Care - Subjective ROS Limited/Unobtainable: No ICU Day: intubated at 4 am because of desaturation of ALOC Intubation Day: 1 Condition: critical EKG Rhythm: Sinus Rhythm FI02: 50 Vent Support Breath Rate: 15 Vent Support Mode: AC Vent Tidal Volume: 600 Sputum Amount: Moderate PEEP: 5.0 PIP: 28 I&O: Intake and Output 06/22/16 06/23/16 19:00 07:00 Intake Total 310 ml 300 ml Output Total 600 ml 500 ml Balance -290 ml -200 ml Intake Oral 100 ml IV Total 210 ml Blood Product 300 ml Output Urine Total 600 ml 500 ml CXR: ET in good postion ET-Tube: 8.0 ET Position: 23 Labs: Laboratory Tests Test 06/23/16 03:27 06/23/16 04:45 06/23/16 05:00 Arterial Blood pH 7.005 (7.350-7.450) 7.221 (7.350-7.450) Arterial Blood Partial Pressure CO2 74.6 mmHg (35.0-45.0) *H 37.4 mmHg (35.0-45.0) Arterial Blood Partial Pressure O2 75.2 mmHg (75.0-100.0) 279.0 mmHg (75.0-100.0) H Arterial Blood HCO3 18.2 mmol/L (22.0-26.0) L 15.0 mmol/L (22.0-26.0) L Arterial Blood Oxygen Saturation 86.4 % (92.0-98.0) L 98.8 % (92.0-98.0) H Arterial Blood Base Excess -13.5 -11.8 Adama Test Positive N/a White Blood Count 12.8 K/UL (4.8-10.8) #H Red Blood Count 3.08 M/UL (4.70-6.10) L Hemoglobin 9.0 G/DL (14.2-18.0) L Hematocrit 30.3 % (42.0-52.0) L Mean Corpuscular Volume 98 FL (80-99) Mean Corpuscular Hemoglobin 29.2 PG (27.0-31.0) Mean Corpuscular Hemoglobin Concent 29.7 G/DL (32.0-36.0) L Red Cell Distribution Width 16.0 % (11.6-14.8) H Platelet Count 240 K/UL (150-450) Mean Platelet Volume 5.2 FL (6.5-10.1) L Neutrophils (%) (Auto) % (45.0-75.0) Lymphocytes (%) (Auto) % (20.0-45.0) Monocytes (%) (Auto) % (1.0-10.0) Eosinophils (%) (Auto) % (0.0-3.0) Basophils (%) (Auto) % (0.0-2.0) Differential Total Cells Counted 100 Neutrophils % (Manual) 91 % (45-75) H Lymphocytes % (Manual) 4 % (20-45) L Monocytes % (Manual) 5 % (1-10) Eosinophils % (Manual) 0 % (0-3) Basophils % (Manual) 0 % (0-2) Band Neutrophils 0 % (0-8) Platelet Estimate Adequate Platelet Morphology Normal Red Blood Cell Morphology Hypochromasia 1+ Anisocytosis 1+ Macrocytosis 1+ Sodium Level 146 mEQ/L (135-145) H Potassium Level 5.4 mEQ/L (3.4-4.9) H Chloride Level 114 mEQ/L (98-107) H Carbon Dioxide Level 14 mEQ/L (20-30) L Anion Gap 18 (5-15) H Blood Urea Nitrogen 63 mg/dL (7-23) H Creatinine 2.9 mg/dL (0.7-1.2) H Estimat Glomerular Filtration Rate mL/min (>60) Glucose Level 175 mg/dL (74-106) H Calcium Level 8.1 mg/dL (8.6-10.2) L Phosphorus Level 5.0 mg/dL (2.5-4.8) H Magnesium Level 2.0 mg/dL (1.7-2.5) Total Bilirubin < 0.2 mg/dL (0.0-1.2) Aspartate Amino Transf (AST/SGOT) 12 U/L (5-40) Alanine Aminotransferase (ALT/SGPT) 12 U/L (3-41) Alkaline Phosphatase 81 U/L (40-129) Total Protein 5.3 g/dL (6.6-8.7) L Albumin 2.3 g/dL (3.5-5.2) L Globulin 3.0 g/dL Albumin/Globulin Ratio 0.7 (1.0-2.7) L AMADO SCHULER Jun 23, 2016 10:36
--- NOTE | 2016-06-23 11:13 | General Progress Note ---
Assessment/Plan Status: stable - from renal stand point Status Narrative on vent- good urine out put Assessment/Plan status: Acute Renal Failure- resolving Acute respiratory failure- septic shock , metabolic acidosis Superimposed on CRI due to DM / HTN PVD s/p amputation- Severe Anemia s/p Heart transplant sacral decub plan: slow Hydrate- watch CHF Sxs transfused- wound care- monitor renal parameters- avoid nephrotoxics per ID and cardiology Bicitra- Subjective ROS Limited/Unobtainable: Yes Constitutional: Reports: other - in ICU intubated since this morning forresoiratory difficulty Allergies: Coded Allergies: ADHESIVE TAPE (Verified Allergy, Unknown, Rash, 05/27/16) PLASTIC TAPE-COPIED FROM UNCODED SECTION PENICILLINS (Verified Allergy, Unknown, 06/20/16) PROCAINE (Verified Allergy, Unknown, Rash, 08/19/14) COPIED FRON UNCODED Objective Last 24 Hour Vital Signs Date Time Temp Pulse Resp B/P Pulse Ox O2 Delivery O2 Flow Rate FiO2 06/23/16 11:00 81 20 93/54 100 Mechanical Ventilator 50 06/23/16 10:00 81 22 120/67 100 Mechanical Ventilator 50 06/23/16 09:00 80 22 110/63 100 Mechanical Ventilator 50 06/23/16 08:57 85 23 50 06/23/16 08:00 97.5 84 22 98/56 100 Mechanical Ventilator 50 06/23/16 07:26 88 21 50 06/23/16 07:06 90 16 107/71 100 Mechanical Ventilator 100 06/23/16 06:00 91 16 87/72 100 Mechanical Ventilator 100 06/23/16 05:15 93 30 100 06/23/16 05:00 95 18 105/57 97 Mechanical Ventilator 100 06/23/16 05:00 50 06/23/16 04:10 100 06/23/16 04:09 105 15 Mechanical Ventilator 100 06/23/16 04:05 105 15 100 06/23/16 04:00 97.3 100 15 112/57 97 Mechanical Ventilator 100 06/23/16 04:00 100 06/23/16 00:00 97.2 96 20 131/88 95 Room Air 06/23/16 00:00 96 06/22/16 20:00 96 06/22/16 20:00 99.1 98 18 95 Room Air 06/22/16 16:00 94 06/22/16 16:00 96.0 88 18 139/71 94 Room Air 06/22/16 12:00 93 06/22/16 11:45 97.0 93 20 118/59 95 Room Air Intake and Output 06/22/16 06/23/16 19:00 07:00 Intake Total 310 ml 300 ml Output Total 600 ml 500 ml Balance -290 ml -200 ml Intake Oral 100 ml IV Total 210 ml Blood Product 300 ml Output Urine Total 600 ml 500 ml Laboratory Tests 06/23/16 03:27: Arterial Blood pH 7.005*L, Arterial Blood Partial Pressure CO2 74.6*H, Arterial Blood Partial Pressure O2 75.2, Arterial Blood HCO3 18.2L, Arterial Blood Oxygen Saturation 86.4L, Arterial Blood Base Excess -13.5, Adama Test Positive 06/23/16 04:45: Arterial Blood pH 7.221*L, Arterial Blood Partial Pressure CO2 37.4, Arterial Blood Partial Pressure O2 279.0H, Arterial Blood HCO3 15.0L, Arterial Blood Oxygen Saturation 98.8H, Arterial Blood Base Excess -11.8, Adama Test N/a 06/23/16 05:00: White Blood Count 12.8#H, Red Blood Count 3.08L, Hemoglobin 9.0L, Hematocrit 30.3L, Mean Corpuscular Volume 98, Mean Corpuscular Hemoglobin 29.2, Mean Corpuscular Hemoglobin Concent 29.7L, Red Cell Distribution Width 16.0H, Platelet Count 240, Mean Platelet Volume 5.2L, Neutrophils (%) (Auto) , Lymphocytes (%) (Auto) , Monocytes (%) (Auto) , Eosinophils (%) (Auto) , Basophils (%) (Auto) , Differential Total Cells Counted 100, Neutrophils % ( Manual) 91H, Lymphocytes % (Manual) 4L, Monocytes % (Manual) 5, Eosinophils % ( Manual) 0, Basophils % (Manual) 0, Band Neutrophils 0, Platelet Estimate Adequate, Platelet Morphology Normal, Red Blood Cell Morphology , Hypochromasia 1+, Anisocytosis 1+, Macrocytosis 1+, Sodium Level 146H, Potassium Level 5.4H, Chloride Level 114H, Carbon Dioxide Level 14L, Anion Gap 18H, Blood Urea Nitrogen 63H, Creatinine 2.9H, Estimat Glomerular Filtration Rate , Glucose Level 175H, Calcium Level 8.1L, Phosphorus Level 5.0H, Magnesium Level 2.0, Total Bilirubin < 0.2, Aspartate Amino Transf (AST/SGOT) 12, Alanine Aminotransferase (ALT/SGPT) 12, Alkaline Phosphatase 81, Total Protein 5.3L, Albumin 2.3L, Globulin 3.0, Albumin/Globulin Ratio 0.7L Height (Feet): 5 Height (Inches): 8.00 Weight (Pounds): 193 Objective no other changes in PE BRIJESH CALDERON Jun 23, 2016 11:13
[2016-06-23] MEDS ORDERED: NovoLOG Insulin Flexpen SUBQ SCH ×2 (11:30)
[2016-06-23] MEDS: Morphine Sulfate 2mg/ml Inj IVP PRN (11:32)
[2016-06-23] MEDS: Nephrovite tab NG SCH (12:56)
[2016-06-23] MEDS ORDERED: Etomidate 40mg/20ml Inj IV ONE (13:39)
[2016-06-23] MEDS ORDERED: Succinylcholine 20mg/ml 10ml vial ONE (13:39)
--- NOTE | 2016-06-23 18:07 | Infectious Diseases Prog Note ---
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 continue local wound care , and off loading. (4) Hyperkalemia, diminished renal excretion Assessment & Plan: improving, due to CKD, on bicarbonate and Kayexalate, renal is following (5) Anemia Assessment & Plan: S/P blood transfusion, monitor H&H, need to rule out GI source, recommend GI consult. (6) PVD (peripheral vascular disease) Assessment & Plan: S/P B/L AKA. (7) CKD (chronic kidney disease) Assessment & Plan: avoid nephrotoxic meds, monitor UOP, and renal function, renal is following (8) Heart transplant status Assessment & Plan: recommend to contact his heart transplant team at [facility] for further recommendation, and possible transfer to [facility] for higher level of care , continue transplant meds , and adjust as per his GFR. Subjective ROS Limited/Unobtainable: Yes Allergies: Coded Allergies: ADHESIVE TAPE (Verified Allergy, Unknown, Rash, 05/27/16) PLASTIC TAPE-COPIED FROM UNCODED SECTION PENICILLINS (Verified Allergy, Unknown, 06/20/16) PROCAINE (Verified Allergy, Unknown, Rash, 08/19/14) COPIED FRON UNCODED Subjective he was intubated on mechanical ventilation but awake and respond well to verbal commands, afebrile. Objective Vital Signs Last 24 Hour Vital Signs Date Time Temp Pulse Resp B/P Pulse Ox O2 Delivery O2 Flow Rate FiO2 06/23/16 17:00 88 23 106/51 100 Mechanical Ventilator 50 06/23/16 16:52 89 19 50 06/23/16 16:00 50 06/23/16 16:00 88 06/23/16 16:00 98.9 88 22 99/54 100 Mechanical Ventilator 50 06/23/16 15:19 92 29 50 06/23/16 15:00 89 23 113/57 100 Mechanical Ventilator 50 06/23/16 14:00 85 20 104/56 100 Mechanical Ventilator 50 06/23/16 13:00 88 20 93/44 100 Mechanical Ventilator 50 06/23/16 12:55 87 22 50 06/23/16 12:00 50 06/23/16 12:00 88 06/23/16 12:00 97.9 80 20 91/60 100 Mechanical Ventilator 50 06/23/16 11:10 87 24 50 06/23/16 11:00 81 20 93/54 100 Mechanical Ventilator 50 06/23/16 10:00 81 22 120/67 100 Mechanical Ventilator 50 06/23/16 09:00 80 22 110/63 100 Mechanical Ventilator 50 06/23/16 08:57 85 23 50 06/23/16 08:00 97.5 84 22 98/56 100 Mechanical Ventilator 50 06/23/16 08:00 83 06/23/16 07:26 88 21 50 06/23/16 07:06 90 16 107/71 100 Mechanical Ventilator 100 06/23/16 06:00 91 16 87/72 100 Mechanical Ventilator 100 06/23/16 05:15 93 30 100 06/23/16 05:00 95 18 105/57 97 Mechanical Ventilator 100 06/23/16 05:00 50 06/23/16 04:10 100 06/23/16 04:09 105 15 Mechanical Ventilator 100 06/23/16 04:05 105 15 100 06/23/16 04:00 97.3 100 15 112/57 97 Mechanical Ventilator 100 06/23/16 04:00 100 06/23/16 00:00 97.2 96 20 131/88 95 Room Air 06/23/16 00:00 96 06/22/16 20:00 96 06/22/16 20:00 99.1 98 18 95 Room Air Height (Feet): 5 Height (Inches): 8.00 Weight (Pounds): 193 General Appearance: WD/WN, no acute distress HEENT: normocephalic, atraumatic, anicteric, mucous membranes moist Respiratory/Chest: chest wall non-tender, no respiratory distress, no accessory muscle use, decreased breath sounds, crackles/rales Cardiovascular: normal peripheral pulses, normal rate, regular rhythm, no gallop/murmur, no JVD Abdomen: normal bowel sounds, soft, non tender, no organomegaly, no mass, no scars, distended Extremities: no cyanosis Skin: no rash, no lesions, ulcers Laboratory Tests Test 06/23/16 03:27 06/23/16 04:45 06/23/16 05:00 Arterial Blood pH 7.005 (7.350-7.450) 7.221 (7.350-7.450) Arterial Blood Partial Pressure CO2 74.6 mmHg (35.0-45.0) *H 37.4 mmHg (35.0-45.0) Arterial Blood Partial Pressure O2 75.2 mmHg (75.0-100.0) 279.0 mmHg (75.0-100.0) H Arterial Blood HCO3 18.2 mmol/L (22.0-26.0) L 15.0 mmol/L (22.0-26.0) L Arterial Blood Oxygen Saturation 86.4 % (92.0-98.0) L 98.8 % (92.0-98.0) H Arterial Blood Base Excess -13.5 -11.8 Adama Test Positive N/a White Blood Count 12.8 K/UL (4.8-10.8) #H Red Blood Count 3.08 M/UL (4.70-6.10) L Hemoglobin 9.0 G/DL (14.2-18.0) L Hematocrit 30.3 % (42.0-52.0) L Mean Corpuscular Volume 98 FL (80-99) Mean Corpuscular Hemoglobin 29.2 PG (27.0-31.0) Mean Corpuscular Hemoglobin Concent 29.7 G/DL (32.0-36.0) L Red Cell Distribution Width 16.0 % (11.6-14.8) H Platelet Count 240 K/UL (150-450) Mean Platelet Volume 5.2 FL (6.5-10.1) L Neutrophils (%) (Auto) % (45.0-75.0) Lymphocytes (%) (Auto) % (20.0-45.0) Monocytes (%) (Auto) % (1.0-10.0) Eosinophils (%) (Auto) % (0.0-3.0) Basophils (%) (Auto) % (0.0-2.0) Differential Total Cells Counted 100 Neutrophils % (Manual) 91 % (45-75) H Lymphocytes % (Manual) 4 % (20-45) L Monocytes % (Manual) 5 % (1-10) Eosinophils % (Manual) 0 % (0-3) Basophils % (Manual) 0 % (0-2) Band Neutrophils 0 % (0-8) Platelet Estimate Adequate Platelet Morphology Normal Red Blood Cell Morphology Hypochromasia 1+ Anisocytosis 1+ Macrocytosis 1+ Sodium Level 146 mEQ/L (135-145) H Potassium Level 5.4 mEQ/L (3.4-4.9) H Chloride Level 114 mEQ/L (98-107) H Carbon Dioxide Level 14 mEQ/L (20-30) L Anion Gap 18 (5-15) H Blood Urea Nitrogen 63 mg/dL (7-23) H Creatinine 2.9 mg/dL (0.7-1.2) H Estimat Glomerular Filtration Rate mL/min (>60) Glucose Level 175 mg/dL (74-106) H Calcium Level 8.1 mg/dL (8.6-10.2) L Phosphorus Level 5.0 mg/dL (2.5-4.8) H Magnesium Level 2.0 mg/dL (1.7-2.5) Total Bilirubin < 0.2 mg/dL (0.0-1.2) Aspartate Amino Transf (AST/SGOT) 12 U/L (5-40) Alanine Aminotransferase (ALT/SGPT) 12 U/L (3-41) Alkaline Phosphatase 81 U/L (40-129) Total Protein 5.3 g/dL (6.6-8.7) L Albumin 2.3 g/dL (3.5-5.2) L Globulin 3.0 g/dL Albumin/Globulin Ratio 0.7 (1.0-2.7) L Current Medications Medications (Trade) Dose Ordered Sig/Koffi Route PRN Reason Start Time Stop Time Status Last Admin Dose Admin Acetaminophen (Tylenol) 650 mg Q4H PRN ORAL fever 06/23/16 10:30 07/23/16 10:29 Acetaminophen/ Hydrocodone Bitart ([place] 5/325) 1 tab Q4H PRN ORAL Moderate Pain (Pain Scale 4-6) 2/8/17 09:00 06/30/16 08:59 Clopidogrel Bisulfate (Plavix) 75 mg DAILY ORAL 06/23/16 09:00 07/23/16 08:59 Collagenase (Santyl) 1 applic DAILY TOPIC 06/23/16 09:00 07/23/16 08:59 06/23/16 08:51 Daptomycin 500 mg/ Sodium Chloride 55 ml @ 110 mls/hr Q48H IV 06/23/16 10:00 06/30/16 09:59 06/23/16 10:00 Dextrose (Dextrose 50%) STAT PRN IV Hypoglycemia 06/23/16 22:30 07/23/16 22:29 Docusate Sodium (Colace) 100 mg THREE TIMES A DAY ORAL 06/23/16 09:00 07/23/16 08:59 Epoetin Mars (Procrit (for non ESRD use)) 7,000 units TUE-TUE-TUE SUBQ 06/23/16 21:00 07/23/16 20:59 Insulin Aspart (NovoLOG) EVERY 6 HOURS SUBQ 06/23/16 12:00 07/23/16 11:59 Lactobacillus Acidophilus (Culturelle) 1 tab THREE TIMES A DAY ORAL 06/23/16 09:00 07/23/16 08:59 Lorazepam (Ativan 2mg/ml 1ml) 0.5 mg Q4H PRN IV For Anxiety 06/23/16 10:30 06/30/16 10:29 Meropenem/Sodium Chloride (Merrem/Sodium Chloride) 55 ml @ 110 mls/hr Q12HR IVPB 06/23/16 09:00 06/28/16 08:59 06/23/16 09:00 Morphine Sulfate (Morphine Sulfate) 1 mg Q4H PRN IVP Severe Pain (Pain Scale 7-10) 06/23/16 11:00 06/30/16 10:59 06/23/16 11:32 Mycophenolate Mofetil (Cellcept) 500 mg TWICE A DAY ORAL 06/23/16 09:00 07/23/16 08:59 Ondansetron HCl (Zofran) 4 mg Q6H PRN IVP Nausea & Vomiting 06/23/16 10:30 07/23/16 10:29 Pantoprazole (Protonix) 40 mg DAILY IVP 06/23/16 09:00 07/23/16 08:59 06/23/16 09:00 Polyethylene Glycol (Miralax) 17 gm DAILY PRN ORAL Constipation 06/23/16 09:00 07/23/16 08:59 Sodium Hypochlorite (Dakin's Full Strength) 1 applic DAILY TOPIC 06/23/16 09:00 07/23/16 08:59 06/23/16 08:51 Sodium Citrate (Bicitra) 30 ml EVERY 6 HOURS ORAL 06/23/16 12:00 07/23/16 11:59 Tacrolimus (Prograf) 0.5 mg EVERY 12 HOURS ORAL 06/23/16 09:00 07/23/16 08:59 Vitamin B Complex/ Vit C/Folic Acid (Nephrovite) 1 tab DAILY NG 06/23/16 13:00 07/23/16 12:59 Zolpidem Tartrate (Ambien) 5 mg HSPRN PRN ORAL Insomnia 06/23/16 22:30 07/23/16 22:29 Jose Mott M.D. Jun 23, 2016 18:07
--- NOTE | 2016-06-23 19:30 | Cardiology Progress Note ---
Assessment/Plan Assessment/Plan hyperkalemia due ro renal failure and over use fo benicar (two time duncan upper limit of max does recommneded) acure on chronic renal filure s/p heart tx dm with endorgan disease pvd obesity anemia htn acute repiratory fialure and acidosis apparently develop obtundation and was noted to be in respiratory acidosis now intubate with mentation seems much imprved prograf level yest 3.2 at 9 am on prograff 0.5 will increase dose to get level about 5 will increae evenin g dose as of tonite (d/w [facility] transplant service ) now intubated but is awake and responsive hoepfuilly will be extuabated babita appears received prbc tx would be tolerant of anemia since post transplant cr improved echo ef 50-55% d/w rn nto on pressore will check cxr in am trop and ekg Subjective ROS Limited/Unobtainable: Yes Subjective on a vent awake a dn responsive Objective Last 24 Hour Vital Signs Date Time Temp Pulse Resp B/P Pulse Ox O2 Delivery O2 Flow Rate FiO2 06/23/16 19:00 89 20 108/58 100 Mechanical Ventilator 50 06/23/16 18:00 88 26 105/52 100 Mechanical Ventilator 50 06/23/16 17:00 88 23 106/51 100 Mechanical Ventilator 50 06/23/16 16:52 89 19 50 06/23/16 16:00 50 06/23/16 16:00 88 06/23/16 16:00 98.9 88 22 99/54 100 Mechanical Ventilator 50 06/23/16 15:19 92 29 50 06/23/16 15:00 89 23 113/57 100 Mechanical Ventilator 50 06/23/16 14:00 85 20 104/56 100 Mechanical Ventilator 50 06/23/16 13:00 88 20 93/44 100 Mechanical Ventilator 50 06/23/16 12:55 87 22 50 06/23/16 12:00 50 06/23/16 12:00 88 06/23/16 12:00 97.9 80 20 91/60 100 Mechanical Ventilator 50 06/23/16 11:10 87 24 50 06/23/16 11:00 81 20 93/54 100 Mechanical Ventilator 50 06/23/16 10:00 81 22 120/67 100 Mechanical Ventilator 50 06/23/16 09:00 80 22 110/63 100 Mechanical Ventilator 50 06/23/16 08:57 85 23 50 06/23/16 08:00 97.5 84 22 98/56 100 Mechanical Ventilator 50 06/23/16 08:00 83 06/23/16 07:26 88 21 50 06/23/16 07:06 90 16 107/71 100 Mechanical Ventilator 100 06/23/16 06:00 91 16 87/72 100 Mechanical Ventilator 100 06/23/16 05:15 93 30 100 06/23/16 05:00 95 18 105/57 97 Mechanical Ventilator 100 06/23/16 05:00 50 06/23/16 04:10 100 06/23/16 04:09 105 15 Mechanical Ventilator 100 06/23/16 04:05 105 15 100 06/23/16 04:00 97.3 100 15 112/57 97 Mechanical Ventilator 100 06/23/16 04:00 100 06/23/16 00:00 97.2 96 20 131/88 95 Room Air 06/23/16 00:00 96 06/22/16 20:00 96 06/22/16 20:00 99.1 98 18 95 Room Air General Appearance: no apparent distress, alert, on vent Neck: no JVD Cardiovascular: normal rate, regular rhythm Respiratory/Chest: lungs clear - ant Abdomen: normal bowel sounds, non tender, soft Extremities: no swelling Intake and Output 06/22/16 06/23/16 19:00 07:00 Intake Total 310 ml 300 ml Output Total 600 ml 500 ml Balance -290 ml -200 ml Intake Oral 100 ml IV Total 210 ml Blood Product 300 ml Output Urine Total 600 ml 500 ml Laboratory Tests Test 06/23/16 03:27 06/23/16 04:45 06/23/16 05:00 Arterial Blood pH 7.005 (7.350-7.450) 7.221 (7.350-7.450) Arterial Blood Partial Pressure CO2 74.6 mmHg (35.0-45.0) *H 37.4 mmHg (35.0-45.0) Arterial Blood Partial Pressure O2 75.2 mmHg (75.0-100.0) 279.0 mmHg (75.0-100.0) H Arterial Blood HCO3 18.2 mmol/L (22.0-26.0) L 15.0 mmol/L (22.0-26.0) L Arterial Blood Oxygen Saturation 86.4 % (92.0-98.0) L 98.8 % (92.0-98.0) H Arterial Blood Base Excess -13.5 -11.8 Adama Test Positive N/a White Blood Count 12.8 K/UL (4.8-10.8) #H Red Blood Count 3.08 M/UL (4.70-6.10) L Hemoglobin 9.0 G/DL (14.2-18.0) L Hematocrit 30.3 % (42.0-52.0) L Mean Corpuscular Volume 98 FL (80-99) Mean Corpuscular Hemoglobin 29.2 PG (27.0-31.0) Mean Corpuscular Hemoglobin Concent 29.7 G/DL (32.0-36.0) L Red Cell Distribution Width 16.0 % (11.6-14.8) H Platelet Count 240 K/UL (150-450) Mean Platelet Volume 5.2 FL (6.5-10.1) L Neutrophils (%) (Auto) % (45.0-75.0) Lymphocytes (%) (Auto) % (20.0-45.0) Monocytes (%) (Auto) % (1.0-10.0) Eosinophils (%) (Auto) % (0.0-3.0) Basophils (%) (Auto) % (0.0-2.0) Differential Total Cells Counted 100 Neutrophils % (Manual) 91 % (45-75) H Lymphocytes % (Manual) 4 % (20-45) L Monocytes % (Manual) 5 % (1-10) Eosinophils % (Manual) 0 % (0-3) Basophils % (Manual) 0 % (0-2) Band Neutrophils 0 % (0-8) Platelet Estimate Adequate Platelet Morphology Normal Red Blood Cell Morphology Hypochromasia 1+ Anisocytosis 1+ Macrocytosis 1+ Sodium Level 146 mEQ/L (135-145) H Potassium Level 5.4 mEQ/L (3.4-4.9) H Chloride Level 114 mEQ/L (98-107) H Carbon Dioxide Level 14 mEQ/L (20-30) L Anion Gap 18 (5-15) H Blood Urea Nitrogen 63 mg/dL (7-23) H Creatinine 2.9 mg/dL (0.7-1.2) H Estimat Glomerular Filtration Rate mL/min (>60) Glucose Level 175 mg/dL (74-106) H Calcium Level 8.1 mg/dL (8.6-10.2) L Phosphorus Level 5.0 mg/dL (2.5-4.8) H Magnesium Level 2.0 mg/dL (1.7-2.5) Total Bilirubin < 0.2 mg/dL (0.0-1.2) Aspartate Amino Transf (AST/SGOT) 12 U/L (5-40) Alanine Aminotransferase (ALT/SGPT) 12 U/L (3-41) Alkaline Phosphatase 81 U/L (40-129) Total Protein 5.3 g/dL (6.6-8.7) L Albumin 2.3 g/dL (3.5-5.2) L Globulin 3.0 g/dL Albumin/Globulin Ratio 0.7 (1.0-2.7) L HAILEE PATEL Jun 23, 2016 19:30
[2016-06-23] MEDS ORDERED: Epogen (for non ESRD use) SUBQ SCH (21:00)
[2016-06-23] MEDS: Epogen (for non ESRD use) SUBQ SCH (21:17)
[2016-06-23] MEDS ORDERED: Zolpidem 5mg tab ORAL PRN (22:30)
[2016-06-24] VITALS (24 sets, daily range): BP systolic 79–125; BP diastolic 41–65
[2016-06-24] MEDS: Sodium Citrate 30ml ORAL SCH ×3 (05:52→17:56)
[2016-06-24] MEDS: NovoLOG Insulin Flexpen SUBQ SCH ×3 (05:53→18:07)
[2016-06-24 06:01] LABS: BASOPHILS % (AUTO) 0.3 % (0.0-2.0); EOSINOPHILS % (AUTO) 2.4 % (0.0-3.0); LYMPHOCYTES % (AUTO) 8.1 % (20.0-45.0); MEAN CORPUSCULAR HEMOGLOBIN 30.1 PG (27.0-31.0); MEAN CORPUSCULAR HGB CONC 31.7 G/DL (32.0-36.0); MEAN CORPUSCULAR VOLUME 95 FL (80-99); MEAN PLATELET VOLUME 5.4 FL (6.5-10.1); MONOCYTES % (AUTO) 7.2 % (1.0-10.0); PLATELET COUNT 266 K/UL (150-450); RED BLOOD COUNT 2.83 M/UL (4.70-6.10); RED CELL DISTRIBUTION WIDTH 16.5 % (11.6-14.8); WHITE BLOOD COUNT 9.1 K/UL (4.8-10.8)
[2016-06-24 06:48] LABS: ALANINE AMINOTRANSFERASE 9 U/L (3-41); ALBUMIN/GLOBULIN RATIO 0.7 (1.0-2.7); ANION GAP 16 (5-15); ASPARTATE AMINO TRANSFERASE 13 U/L (5-40); CALCIUM 8.5 mg/dL (8.6-10.2); CARBON DIOXIDE 17 mEQ/L (20-30); CHLORIDE 116 mEQ/L (98-107); CREATININE 2.8 mg/dL (0.7-1.2); HEMOLYSIS 1; MAGNESIUM 1.9 mg/dL (1.7-2.5); PHOSPHORUS 3.4 mg/dL (2.5-4.8); POTASSIUM 4.8 mEQ/L (3.4-4.9); SODIUM 149 mEQ/L (135-145); TOTAL PROTEIN 5.1 g/dL (6.6-8.7)
[2016-06-24 07:28] LABS: TROPONIN I < 0.30 ng/mL (<=0.30)
[2016-06-24 07:44] LABS: ABG BASE EXCESS -5
[2016-06-24] MEDS: Nephrovite tab NG SCH (09:00)
[2016-06-24] MEDS: Dakin's 0.5% (Full Strength) 16oz TOPIC SCH (09:00)
[2016-06-24] MEDS: Meropenem 500 MG in NS 55 ML IVPB SCH ×2 (09:48→21:37)
[2016-06-24] MEDS: Pantoprazole Inj IVP SCH (09:48)
[2016-06-24] MEDS: Lactobacillus-GG tablet ORAL SCH ×3 (09:49→17:56)
[2016-06-24] MEDS: Mycophenolate 250mg cap ORAL SCH ×2 (09:49→17:56)
[2016-06-24] MEDS: Docusate 100mg tablet NG SCH ×3 (09:49→17:55)
[2016-06-24] MEDS: Morphine Sulfate 2mg/ml Inj IVP PRN ×2 (09:51→18:26)
--- NOTE | 2016-06-24 10:43 | Pulmonolgy Critical Care Note ---
Critical Care - Asmt/Plan Problems: (1) Respiratory failure requiring intubation (2) Acute encephalopathy (3) ATN (acute tubular necrosis) (4) Sepsis (5) Decubitus skin ulcer Assessment & Plan: on hip, left and right tuberosity of pelvis, sacral area and scrotum stage 2 Respiratory: monitor respiratory rate, adjust FIO2 Cardiac: continue to monitor HR/BP Renal: F/U I&O, check electrolytes, other - no iv fluids, urine output ok Infectious Disease: check cultures, continue antibiotics, other - sputum pending Gastrointestinal: continue feedings/current rate Endocrine: monitor blood sugar, continue sliding scale insulin Hematologic: monitor H/H, transfuse if hgb<8.5 Neurologic: PRN Ativan, keep patient comfortable Affect: PRN ativan Prophylaxis: Protonix Time Spent (Minutes): 40 Notes Reviewed: cardio, renal, ID Discussed with: nurses, consultants, 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 - Objective Last 24 Hour Vital Signs Date Time Temp Pulse Resp B/P Pulse Ox O2 Delivery O2 Flow Rate FiO2 06/24/16 09:00 81 19 106/53 100 Mechanical Ventilator 50 06/24/16 08:50 80 22 50 06/24/16 08:00 81 06/24/16 08:00 99.1 81 23 97/51 100 Mechanical Ventilator 50 06/24/16 08:00 50 06/24/16 07:00 91 23 111/57 100 Mechanical Ventilator 50 06/24/16 06:59 87 17 50 06/24/16 06:00 69 24 102/60 100 Mechanical Ventilator 50 06/24/16 05:30 84 18 50 06/24/16 05:00 87 24 102/60 100 Mechanical Ventilator 50 06/24/16 04:00 86 06/24/16 04:00 50 06/24/16 04:00 99.1 86 29 125/65 100 Mechanical Ventilator 50 06/24/16 03:22 82 23 50 06/24/16 03:00 86 26 109/57 100 Mechanical Ventilator 50 06/24/16 02:00 81 27 124/59 100 Mechanical Ventilator 50 06/24/16 01:30 87 19 50 06/24/16 01:00 87 26 124/59 100 Mechanical Ventilator 50 06/24/16 00:33 100.0 06/24/16 00:00 92 06/24/16 00:00 100.5 85 26 92/55 100 Mechanical Ventilator 50 06/24/16 00:00 50 06/23/16 23:30 89 31 50 06/23/16 23:00 92 22 123/65 100 Mechanical Ventilator 50 06/23/16 22:00 88 19 114/65 100 Mechanical Ventilator 50 06/23/16 21:26 93 28 50 06/23/16 21:00 91 24 111/57 100 Mechanical Ventilator 50 06/23/16 20:00 50 06/23/16 20:00 102 06/23/16 20:00 99.0 91 23 103/50 100 Mechanical Ventilator 50 06/23/16 20:00 91 06/23/16 19:26 89 27 50 06/23/16 19:24 90 25 Mechanical Ventilator 50 06/23/16 19:00 89 20 108/58 100 Mechanical Ventilator 50 06/23/16 18:00 88 26 105/52 100 Mechanical Ventilator 50 06/23/16 17:00 88 23 106/51 100 Mechanical Ventilator 50 06/23/16 16:52 89 19 50 06/23/16 16:00 50 06/23/16 16:00 88 06/23/16 16:00 98.9 88 22 99/54 100 Mechanical Ventilator 50 06/23/16 15:19 92 29 50 06/23/16 15:00 89 23 113/57 100 Mechanical Ventilator 50 06/23/16 14:00 85 20 104/56 100 Mechanical Ventilator 50 06/23/16 13:00 88 20 93/44 100 Mechanical Ventilator 50 06/23/16 12:55 87 22 50 06/23/16 12:00 50 06/23/16 12:00 88 06/23/16 12:00 97.9 80 20 91/60 100 Mechanical Ventilator 50 06/23/16 11:10 87 24 50 06/23/16 11:00 81 20 93/54 100 Mechanical Ventilator 50 Status: awake Condition: critical HEENT: atraumatic Lungs: clear Heart: HR/BP stable, HR/BP unstable Abdomen: non-tender, active bowel sounds Extremities: no C/C/E, edema Decubiti: location Accucheck: 114 Critical Care - Subjective ROS Limited/Unobtainable: No ICU Day: 2 Intubation Day: 2 Condition: critical EKG Rhythm: Sinus Rhythm FI02: 50 Vent Support Breath Rate: 15 Vent Support Mode: AC Vent Tidal Volume: 600 Sputum Amount: Small PEEP: 5.0 PIP: 27 Tube Feeding Amount: 30 I&O: Intake and Output 06/23/16 06/24/16 19:00 07:00 Intake Total 210 ml 465 ml Output Total 595 ml 650 ml Balance -385 ml -185 ml IV Total 110 ml 55 ml Tube Feeding 50 ml 260 ml Other 50 ml 150 ml Output Urine Total 595 ml 650 ml CXR: pulmonary edema, ET in good position ET-Tube: 8.0 ET Position: 23 Labs: Laboratory Tests Test 06/24/16 03:40 06/24/16 07:31 White Blood Count 9.1 K/UL (4.8-10.8) Red Blood Count 2.83 M/UL (4.70-6.10) L Hemoglobin 8.5 G/DL (14.2-18.0) L Hematocrit 26.9 % (42.0-52.0) L Mean Corpuscular Volume 95 FL (80-99) Mean Corpuscular Hemoglobin 30.1 PG (27.0-31.0) Mean Corpuscular Hemoglobin Concent 31.7 G/DL (32.0-36.0) L Red Cell Distribution Width 16.5 % (11.6-14.8) H Platelet Count 266 K/UL (150-450) Mean Platelet Volume 5.4 FL (6.5-10.1) L Neutrophils (%) (Auto) 82.0 % (45.0-75.0) H Lymphocytes (%) (Auto) 8.1 % (20.0-45.0) L Monocytes (%) (Auto) 7.2 % (1.0-10.0) Eosinophils (%) (Auto) 2.4 % (0.0-3.0) Basophils (%) (Auto) 0.3 % (0.0-2.0) Sodium Level 149 mEQ/L (135-145) H Potassium Level 4.8 mEQ/L (3.4-4.9) Chloride Level 116 mEQ/L (98-107) H Carbon Dioxide Level 17 mEQ/L (20-30) L Anion Gap 16 (5-15) H Blood Urea Nitrogen 61 mg/dL (7-23) H Creatinine 2.8 mg/dL (0.7-1.2) H Estimat Glomerular Filtration Rate mL/min (>60) Glucose Level 103 mg/dL (74-106) Uric Acid 8.0 mg/dL (3.0-7.5) H Calcium Level 8.5 mg/dL (8.6-10.2) L Phosphorus Level 3.4 mg/dL (2.5-4.8) Magnesium Level 1.9 mg/dL (1.7-2.5) Total Bilirubin 0.3 mg/dL (0.0-1.2) Gamma Glutamyl Transpeptidase 20 U/L (8-61) Aspartate Amino Transf (AST/SGOT) 13 U/L (5-40) Alanine Aminotransferase (ALT/SGPT) 9 U/L (3-41) Alkaline Phosphatase 80 U/L (40-129) Total Creatine Kinase 21 U/L (38-174) L Troponin I < 0.30 ng/mL (<=0.30) C-Reactive Protein, Quantitative 18.0 mg/dL (< 0.5) H Pro-B-Type Natriuretic Peptide 34269 pg/mL (0-450) H Total Protein 5.1 g/dL (6.6-8.7) L Albumin 2.2 g/dL (3.5-5.2) L Globulin 2.9 g/dL Albumin/Globulin Ratio 0.7 (1.0-2.7) L Arterial Blood pH 7.420 (7.350-7.450) Arterial Blood Partial Pressure CO2 30.0 mmHg (35.0-45.0) L Arterial Blood Partial Pressure O2 126.4 mmHg (75.0-100.0) H Arterial Blood HCO3 19.0 mmol/L (22.0-26.0) L Arterial Blood Oxygen Saturation 98.0 % (92.0-98.0) Arterial Blood Base Excess -5 Adama Test AMADO SCHULER Jun 24, 2016 10:43
--- NOTE | 2016-06-24 11:03 | General Progress Note ---
Assessment/Plan Status: stable Status Narrative remains intubated- Cr down to 2.8 Assessment/Plan status: Acute Renal Failure- resolving Acute respiratory failure- septic shock , metabolic acidosis Superimposed on CRI due to DM / HTN PVD s/p amputation- Severe Anemia s/p Heart transplant sacral decub plan: slow Hydrate- watch CHF Sxs transfused- wound care- monitor renal parameters- optimize cardiac and pulm status- wean as possible. avoid nephrotoxics per ID and cardiology Bicitra- Subjective ROS Limited/Unobtainable: Yes Allergies: Coded Allergies: ADHESIVE TAPE (Verified Allergy, Unknown, Rash, 05/27/16) PLASTIC TAPE-COPIED FROM UNCODED SECTION PENICILLINS (Verified Allergy, Unknown, 06/20/16) PROCAINE (Verified Allergy, Unknown, Rash, 08/19/14) COPIED FRON UNCODED Objective Last 24 Hour Vital Signs Date Time Temp Pulse Resp B/P Pulse Ox O2 Delivery O2 Flow Rate FiO2 06/24/16 10:49 99.1 06/24/16 10:34 87 15 50 06/24/16 10:00 86 26 119/58 100 Mechanical Ventilator 50 06/24/16 09:00 81 19 106/53 100 Mechanical Ventilator 50 06/24/16 08:50 80 22 50 06/24/16 08:00 81 06/24/16 08:00 99.1 81 23 97/51 100 Mechanical Ventilator 50 06/24/16 08:00 50 06/24/16 07:00 91 23 111/57 100 Mechanical Ventilator 50 06/24/16 06:59 87 17 50 06/24/16 06:00 69 24 102/60 100 Mechanical Ventilator 50 06/24/16 05:30 84 18 50 06/24/16 05:00 87 24 102/60 100 Mechanical Ventilator 50 06/24/16 04:00 86 06/24/16 04:00 50 06/24/16 04:00 99.1 86 29 125/65 100 Mechanical Ventilator 50 06/24/16 03:22 82 23 50 06/24/16 03:00 86 26 109/57 100 Mechanical Ventilator 50 06/24/16 02:00 81 27 124/59 100 Mechanical Ventilator 50 06/24/16 01:30 87 19 50 06/24/16 01:00 87 26 124/59 100 Mechanical Ventilator 50 06/24/16 00:00 92 06/24/16 00:00 100.5 85 26 92/55 100 Mechanical Ventilator 50 06/24/16 00:00 50 06/23/16 23:30 89 31 50 06/23/16 23:00 92 22 123/65 100 Mechanical Ventilator 50 06/23/16 22:00 88 19 114/65 100 Mechanical Ventilator 50 06/23/16 21:26 93 28 50 06/23/16 21:00 91 24 111/57 100 Mechanical Ventilator 50 06/23/16 20:00 50 06/23/16 20:00 102 06/23/16 20:00 99.0 91 23 103/50 100 Mechanical Ventilator 50 06/23/16 20:00 91 06/23/16 19:26 89 27 50 06/23/16 19:24 90 25 Mechanical Ventilator 50 06/23/16 19:00 89 20 108/58 100 Mechanical Ventilator 50 06/23/16 18:00 88 26 105/52 100 Mechanical Ventilator 50 06/23/16 17:00 88 23 106/51 100 Mechanical Ventilator 50 06/23/16 16:52 89 19 50 06/23/16 16:00 50 06/23/16 16:00 88 06/23/16 16:00 98.9 88 22 99/54 100 Mechanical Ventilator 50 06/23/16 15:19 92 29 50 06/23/16 15:00 89 23 113/57 100 Mechanical Ventilator 50 06/23/16 14:00 85 20 104/56 100 Mechanical Ventilator 50 06/23/16 13:00 88 20 93/44 100 Mechanical Ventilator 50 06/23/16 12:55 87 22 50 06/23/16 12:00 50 06/23/16 12:00 88 06/23/16 12:00 97.9 80 20 91/60 100 Mechanical Ventilator 50 06/23/16 11:10 87 24 50 06/23/16 11:00 81 20 93/54 100 Mechanical Ventilator 50 Intake and Output 06/23/16 06/24/16 19:00 07:00 Intake Total 210 ml 465 ml Output Total 595 ml 650 ml Balance -385 ml -185 ml IV Total 110 ml 55 ml Tube Feeding 50 ml 260 ml Other 50 ml 150 ml Output Urine Total 595 ml 650 ml Laboratory Tests 06/24/16 03:40: White Blood Count 9.1, Red Blood Count 2.83L, Hemoglobin 8.5L, Hematocrit 26.9L , Mean Corpuscular Volume 95, Mean Corpuscular Hemoglobin 30.1, Mean Corpuscular Hemoglobin Concent 31.7L, Red Cell Distribution Width 16.5H, Platelet Count 266, Mean Platelet Volume 5.4L, Neutrophils (%) (Auto) 82.0H, Lymphocytes (%) (Auto) 8.1L, Monocytes (%) (Auto) 7.2, Eosinophils (%) (Auto) 2.4, Basophils (%) (Auto) 0.3, Sodium Level 149H, Potassium Level 4.8, Chloride Level 116H, Carbon Dioxide Level 17L, Anion Gap 16H, Blood Urea Nitrogen 61H, Creatinine 2.8H, Estimat Glomerular Filtration Rate , Glucose Level 103, Uric Acid 8.0H, Calcium Level 8.5L, Phosphorus Level 3.4, Magnesium Level 1.9, Total Bilirubin 0.3, Gamma Glutamyl Transpeptidase 20, Aspartate Amino Transf (AST/ SGOT) 13, Alanine Aminotransferase (ALT/SGPT) 9, Alkaline Phosphatase 80, Total Creatine Kinase 21L, Troponin I < 0.30, C-Reactive Protein, Quantitative 18.0H, Pro-B-Type Natriuretic Peptide 80477W, Total Protein 5.1L, Albumin 2.2L, Globulin 2.9, Albumin/Globulin Ratio 0.7L 06/24/16 07:31: Arterial Blood pH 7.420, Arterial Blood Partial Pressure CO2 30.0L, Arterial Blood Partial Pressure O2 126.4H, Arterial Blood HCO3 19.0L, Arterial Blood Oxygen Saturation 98.0, Arterial Blood Base Excess -5, Adama Test Height (Feet): 5 Height (Inches): 8.00 Weight (Pounds): 193 General Appearance: no apparent distress EENT: other - remains intubated Cardiovascular: normal rate Respiratory/Chest: decreased breath sounds Abdomen: soft Objective no other changes in PE BRIJESH CALDERON Jun 24, 2016 11:03
--- NOTE | 2016-06-24 11:42 | Diagnostic Imaging Report ---
Indication: DYSPNEA Technique: One view of the chest Comparison: 06/23/2016 Findings: Stable satisfactory position of endotracheal tube and left arm PICC. There is a orogastric tube in place, tip position indeterminate, not seen beyond the level of the gastroesophageal junction. Interstitial and alveolar infiltrates versus edema are stable on the left, slightly worse on the right the heart remains borderline enlarged. Impression: Indeterminate orogastric tube tip position. Consider followup abdominal radiograph to clarify. This was discussed by ICU nurse Bhumi at the time of interpretation Slightly increased interstitial and alveolar edema versus infiltrates on the right, stable on the left Other tube and line positions, as described
--- NOTE | 2016-06-24 14:21 | Diagnostic Imaging Report ---
Indication: Evaluation of nasogastric tube position Technique: Supine view of the upper abdomen Comparison: none Findings: There is a nasogastric tube placed, tip of which is difficult to visualize, but appears to project at the level of the gastroesophageal junction. Visualized bowel gas is unremarkable Impression: Still high position of nasogastric tube, tip at the gastroesophageal Patient's nurse, John, notified of findings at the time of interpretation
[2016-06-24] MEDS ORDERED: Tubing IV Secondary IV ONE (15:27)
[2016-06-24] MEDS ORDERED: NS 275ml ONE (15:27)
--- NOTE | 2016-06-24 16:40 | Diagnostic Imaging Report ---
Indication: Status post nasogastric tube adjustment Technique: Supine view of the upper abdomen Comparison: 4 hours earlier Findings: Interim advancement of nasogastric tube, tip now projects at the level of the gastric antrum or possibly the duodenal bulb. Bowel gas pattern is unremarkable Impression: Improved and now satisfactory position of nasogastric tube ICU nurse Bhumi notified by phone findings the time of interpretation
--- NOTE | 2016-06-24 17:27 | Infectious Diseases Prog Note ---
Assessment/Plan Problems: (1) Sepsis Assessment & Plan: with leukocytosis and hypotension, will switch daptomycin to zyvox to cover for possible pneumonia , and continue meropenem , repeated blood culture and sputum culture are pending , recommend transfer to [place] as soon as possible for higher level of care, D/W family and primary provider (2) Respiratory failure requiring intubation Assessment & Plan: with new right lungs infiltrates on CXR, possible pneumonia , will switch daptomycin to zyvox and continue meropenem for empiric coverage , pulmonary is following (3) Decubital ulcer Assessment & Plan: no need for surgical debridement as per plastic surgery , 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 continue local wound care , and off loading. (4) Hyperkalemia, diminished renal excretion Assessment & Plan: improving, due to CKD, on bicarbonate and Kayexalate, renal is following (5) Anemia Assessment & Plan: S/P blood transfusion, monitor H&H, need to rule out GI source, recommend GI consult. (6) PVD (peripheral vascular disease) Assessment & Plan: S/P B/L AKA. (7) CKD (chronic kidney disease) Assessment & Plan: avoid nephrotoxic meds, monitor UOP, and renal function, renal is following (8) Heart transplant status Assessment & Plan: recommend to contact his heart transplant team at [facility] for further recommendation, and possible transfer to [facility] for higher level of care , continue transplant meds , and adjust as per his GFR. Subjective ROS Limited/Unobtainable: Yes Allergies: Coded Allergies: ADHESIVE TAPE (Verified Allergy, Unknown, Rash, 05/27/16) PLASTIC TAPE-COPIED FROM UNCODED SECTION PENICILLINS (Verified Allergy, Unknown, 06/20/16) PROCAINE (Verified Allergy, Unknown, Rash, 08/19/14) COPIED FRON UNCODED Subjective he was intubated on mechanical ventilation but awake and respond well to verbal commands, afebrile. Objective Vital Signs Last 24 Hour Vital Signs Date Time Temp Pulse Resp B/P Pulse Ox O2 Delivery O2 Flow Rate FiO2 06/24/16 16:57 82 15 50 06/24/16 16:00 97.8 85 21 88/48 100 Mechanical Ventilator 50 06/24/16 16:00 50 06/24/16 15:00 80 22 79/45 100 Mechanical Ventilator 50 06/24/16 15:00 83 18 50 06/24/16 14:00 84 23 90/51 100 Mechanical Ventilator 50 06/24/16 13:00 79 23 81/41 100 Mechanical Ventilator 50 06/24/16 12:39 85 16 50 06/24/16 12:00 87 06/24/16 12:00 98.9 81 23 102/52 100 Mechanical Ventilator 50 06/24/16 12:00 50 06/24/16 11:00 84 23 100/60 100 Mechanical Ventilator 50 06/24/16 10:49 99.1 06/24/16 10:34 87 15 50 06/24/16 10:00 86 26 119/58 100 Mechanical Ventilator 50 06/24/16 09:00 81 19 106/53 100 Mechanical Ventilator 50 06/24/16 08:50 80 22 50 06/24/16 08:00 81 06/24/16 08:00 99.1 81 23 97/51 100 Mechanical Ventilator 50 06/24/16 08:00 50 06/24/16 07:00 91 23 111/57 100 Mechanical Ventilator 50 06/24/16 06:59 87 17 50 06/24/16 06:00 69 24 102/60 100 Mechanical Ventilator 50 06/24/16 05:30 84 18 50 06/24/16 05:00 87 24 102/60 100 Mechanical Ventilator 50 06/24/16 04:00 86 06/24/16 04:00 50 06/24/16 04:00 99.1 86 29 125/65 100 Mechanical Ventilator 50 06/24/16 03:22 82 23 50 06/24/16 03:00 86 26 109/57 100 Mechanical Ventilator 50 06/24/16 02:00 81 27 124/59 100 Mechanical Ventilator 50 06/24/16 01:30 87 19 50 06/24/16 01:00 87 26 124/59 100 Mechanical Ventilator 50 06/24/16 00:00 92 06/24/16 00:00 100.5 85 26 92/55 100 Mechanical Ventilator 50 06/24/16 00:00 50 06/23/16 23:30 89 31 50 06/23/16 23:00 92 22 123/65 100 Mechanical Ventilator 50 06/23/16 22:00 88 19 114/65 100 Mechanical Ventilator 50 06/23/16 21:26 93 28 50 06/23/16 21:00 91 24 111/57 100 Mechanical Ventilator 50 06/23/16 20:00 50 06/23/16 20:00 102 06/23/16 20:00 99.0 91 23 103/50 100 Mechanical Ventilator 50 06/23/16 20:00 91 06/23/16 19:26 89 27 50 06/23/16 19:24 90 25 Mechanical Ventilator 50 06/23/16 19:00 89 20 108/58 100 Mechanical Ventilator 50 06/23/16 18:00 88 26 105/52 100 Mechanical Ventilator 50 Height (Feet): 5 Height (Inches): 8.00 Weight (Pounds): 193 General Appearance: WD/WN, no acute distress HEENT: normocephalic, atraumatic, anicteric, mucous membranes moist Respiratory/Chest: normal breath sounds, no respiratory distress, no accessory muscle use, decreased breath sounds, crackles/rales Cardiovascular: normal peripheral pulses, normal rate, regular rhythm, no gallop/murmur, no JVD Abdomen: normal bowel sounds, soft, non tender, no organomegaly, non distended , no mass, no scars Extremities: no cyanosis, no clubbing Skin: ulcers Microbiology Date/Time Source Procedure Growth Status 06/23/16 17:00 Sputum Gram Stain - Final Resulted 06/23/16 17:00 Sputum Sputum Culture Pending Resulted Laboratory Tests Test 06/24/16 03:40 06/24/16 07:31 White Blood Count 9.1 K/UL (4.8-10.8) Red Blood Count 2.83 M/UL (4.70-6.10) L Hemoglobin 8.5 G/DL (14.2-18.0) L Hematocrit 26.9 % (42.0-52.0) L Mean Corpuscular Volume 95 FL (80-99) Mean Corpuscular Hemoglobin 30.1 PG (27.0-31.0) Mean Corpuscular Hemoglobin Concent 31.7 G/DL (32.0-36.0) L Red Cell Distribution Width 16.5 % (11.6-14.8) H Platelet Count 266 K/UL (150-450) Mean Platelet Volume 5.4 FL (6.5-10.1) L Neutrophils (%) (Auto) 82.0 % (45.0-75.0) H Lymphocytes (%) (Auto) 8.1 % (20.0-45.0) L Monocytes (%) (Auto) 7.2 % (1.0-10.0) Eosinophils (%) (Auto) 2.4 % (0.0-3.0) Basophils (%) (Auto) 0.3 % (0.0-2.0) Sodium Level 149 mEQ/L (135-145) H Potassium Level 4.8 mEQ/L (3.4-4.9) Chloride Level 116 mEQ/L (98-107) H Carbon Dioxide Level 17 mEQ/L (20-30) L Anion Gap 16 (5-15) H Blood Urea Nitrogen 61 mg/dL (7-23) H Creatinine 2.8 mg/dL (0.7-1.2) H Estimat Glomerular Filtration Rate mL/min (>60) Glucose Level 103 mg/dL (74-106) Uric Acid 8.0 mg/dL (3.0-7.5) H Calcium Level 8.5 mg/dL (8.6-10.2) L Phosphorus Level 3.4 mg/dL (2.5-4.8) Magnesium Level 1.9 mg/dL (1.7-2.5) Total Bilirubin 0.3 mg/dL (0.0-1.2) Gamma Glutamyl Transpeptidase 20 U/L (8-61) Aspartate Amino Transf (AST/SGOT) 13 U/L (5-40) Alanine Aminotransferase (ALT/SGPT) 9 U/L (3-41) Alkaline Phosphatase 80 U/L (40-129) Total Creatine Kinase 21 U/L (38-174) L Troponin I < 0.30 ng/mL (<=0.30) C-Reactive Protein, Quantitative 18.0 mg/dL (< 0.5) H Pro-B-Type Natriuretic Peptide 50597 pg/mL (0-450) H Total Protein 5.1 g/dL (6.6-8.7) L Albumin 2.2 g/dL (3.5-5.2) L Globulin 2.9 g/dL Albumin/Globulin Ratio 0.7 (1.0-2.7) L Arterial Blood pH 7.420 (7.350-7.450) Arterial Blood Partial Pressure CO2 30.0 mmHg (35.0-45.0) L Arterial Blood Partial Pressure O2 126.4 mmHg (75.0-100.0) H Arterial Blood HCO3 19.0 mmol/L (22.0-26.0) L Arterial Blood Oxygen Saturation 98.0 % (92.0-98.0) Arterial Blood Base Excess -5 Adama Test Current Medications Medications (Trade) Dose Ordered Sig/Koffi Route PRN Reason Start Time Stop Time Status Last Admin Dose Admin Acetaminophen (Tylenol) 650 mg Q4H PRN ORAL fever 06/23/16 10:30 07/23/16 10:29 06/24/16 09:50 Acetaminophen/ Hydrocodone Bitart (Randolph 5/325) 1 tab Q4H PRN ORAL Moderate Pain (Pain Scale 4-6) 06/23/16 09:00 06/30/16 08:59 Clopidogrel Bisulfate (Plavix) 75 mg DAILY ORAL 06/23/16 09:00 07/23/16 08:59 06/24/16 09:49 Collagenase (Santyl) 1 applic DAILY TOPIC 06/23/16 09:00 07/23/16 08:59 06/24/16 09:00 Dextrose (Dextrose 50%) STAT PRN IV Hypoglycemia 06/23/16 22:30 07/23/16 22:29 Docusate Sodium (Colace) 100 mg TID NG 06/24/16 09:00 07/24/16 08:59 06/24/16 12:26 Dopamine HCl/ Dextrose (DOPamine 400mg/ 250ml) 250 ml @ 0 mls/hr Q24H IV 06/24/16 16:15 07/24/16 16:14 Epoetin Mars (Procrit (for non ESRD use)) 7,000 units MON-WED-TUE SUBQ 06/23/16 21:00 07/23/16 20:59 06/23/16 21:17 Insulin Aspart (NovoLOG) EVERY 6 HOURS SUBQ 06/23/16 12:00 07/23/16 11:59 06/24/16 12:58 Lactobacillus Acidophilus (Culturelle) 1 tab THREE TIMES A DAY ORAL 06/23/16 09:00 07/23/16 08:59 06/24/16 12:27 Linezolid 300 ml @ 300 mls/hr Q12H IVPB 06/24/16 16:00 07/01/16 15:59 06/24/16 16:24 Lorazepam (Ativan 2mg/ml 1ml) 0.5 mg Q4H PRN IV For Anxiety 06/23/16 10:30 06/30/16 10:29 Meropenem/Sodium Chloride (Merrem/Sodium Chloride) 55 ml @ 110 mls/hr Q12HR IVPB 06/23/16 09:00 06/28/16 08:59 06/24/16 09:48 Morphine Sulfate (Morphine Sulfate) 1 mg Q4H PRN IVP Severe Pain (Pain Scale 7-10) 06/23/16 11:00 06/30/16 10:59 06/24/16 09:51 Mycophenolate Mofetil (Cellcept) 500 mg TWICE A DAY ORAL 06/23/16 09:00 07/23/16 08:59 06/24/16 09:49 Ondansetron HCl (Zofran) 4 mg Q6H PRN IVP Nausea & Vomiting 06/23/16 10:30 07/23/16 10:29 06/24/16 09:50 Pantoprazole (Protonix) 40 mg DAILY IVP 06/23/16 09:00 07/23/16 08:59 06/24/16 09:48 Polyethylene Glycol (Miralax) 17 gm DAILY PRN ORAL Constipation 06/23/16 09:00 07/23/16 08:59 Sodium Hypochlorite (Dakin's Full Strength) 1 applic DAILY TOPIC 06/23/16 09:00 07/23/16 08:59 06/24/16 09:00 Sodium Citrate (Bicitra) 30 ml EVERY 6 HOURS ORAL 06/23/16 12:00 07/23/16 11:59 06/24/16 12:26 Tacrolimus (Prograf) 0.5 mg QHS ORAL 06/24/16 21:00 07/24/16 20:59 Tacrolimus 1 mg 1 mg DAILY@0800 ORAL 06/24/16 09:30 07/24/16 09:29 Vitamin B Complex/ Vit C/Folic Acid (Nephrovite) 1 tab DAILY NG 06/23/16 13:00 07/23/16 12:59 06/24/16 09:00 Zolpidem Tartrate (Ambien) 5 mg HSPRN PRN ORAL Insomnia 06/23/16 22:30 07/23/16 22:29 Jose Mott M.D. Jun 24, 2016 17:27
[2016-06-24] MEDS: DOPamine 400mg/250ml 250 ML IV SCH (17:56)
[2016-06-24] MEDS: LORazepam Inj 2mg/ml 1ml IV PRN (20:32)
--- NOTE | 2016-06-24 21:21 | Cardiology Progress Note ---
Assessment/Plan Assessment/Plan hyperkalemia due ro renal failure and over use fo benicar (two time duncan upper limit of max does recommneded) acure on chronic renal filure s/p heart tx dm with endorgan disease pvd obesity anemia htn acute repiratory fialure and acidosis remain on the vent attempt at [facility] tomorrow apparently planned prograff level before bernardo m dose tomorrpow received prbc tx a few lanre go would be tolerant of anemia since post transplant cr improved echo ef 50-55% d/w rn not on pressore will check cxr in am trop and ekg neg bnp non diagnossic in light of renal insuf tele neg ekg yest was fine Subjective ROS Limited/Unobtainable: Yes Subjective on a vent awake a dn responsive Objective Last 24 Hour Vital Signs Date Time Temp Pulse Resp B/P Pulse Ox O2 Delivery O2 Flow Rate FiO2 06/24/16 20:00 50 06/24/16 20:00 90 06/24/16 20:00 96.9 92 20 113/64 100 Mechanical Ventilator 50 06/24/16 19:19 89 21 40 06/24/16 19:00 93 19 120/60 100 Mechanical Ventilator 50 06/24/16 18:56 97.8 06/24/16 18:00 92 20 110/53 100 Mechanical Ventilator 50 06/24/16 17:56 99/50 06/24/16 17:00 85 22 102/51 100 Mechanical Ventilator 50 06/24/16 16:57 82 15 50 06/24/16 16:00 78 06/24/16 16:00 97.8 85 21 88/48 100 Mechanical Ventilator 50 06/24/16 16:00 50 06/24/16 15:00 80 22 79/45 100 Mechanical Ventilator 50 06/24/16 15:00 83 18 50 06/24/16 14:00 84 23 90/51 100 Mechanical Ventilator 50 06/24/16 13:00 79 23 81/41 100 Mechanical Ventilator 50 06/24/16 12:39 85 16 50 06/24/16 12:00 87 06/24/16 12:00 98.9 81 23 102/52 100 Mechanical Ventilator 50 06/24/16 12:00 50 06/24/16 11:00 84 23 100/60 100 Mechanical Ventilator 50 06/24/16 10:49 99.1 06/24/16 10:34 87 15 50 06/24/16 10:00 86 26 119/58 100 Mechanical Ventilator 50 06/24/16 09:00 81 19 106/53 100 Mechanical Ventilator 50 06/24/16 08:50 80 22 50 06/24/16 08:00 81 06/24/16 08:00 99.1 81 23 97/51 100 Mechanical Ventilator 50 06/24/16 08:00 50 06/24/16 07:00 91 23 111/57 100 Mechanical Ventilator 50 06/24/16 06:59 87 17 50 06/24/16 06:00 69 24 102/60 100 Mechanical Ventilator 50 06/24/16 05:30 84 18 50 06/24/16 05:00 87 24 102/60 100 Mechanical Ventilator 50 06/24/16 04:00 86 06/24/16 04:00 50 06/24/16 04:00 99.1 86 29 125/65 100 Mechanical Ventilator 50 06/24/16 03:22 82 23 50 06/24/16 03:00 86 26 109/57 100 Mechanical Ventilator 50 06/24/16 02:00 81 27 124/59 100 Mechanical Ventilator 50 06/24/16 01:30 87 19 50 06/24/16 01:00 87 26 124/59 100 Mechanical Ventilator 50 06/24/16 00:00 92 06/24/16 00:00 100.5 85 26 92/55 100 Mechanical Ventilator 50 06/24/16 00:00 50 06/23/16 23:30 89 31 50 06/23/16 23:00 92 22 123/65 100 Mechanical Ventilator 50 06/23/16 22:00 88 19 114/65 100 Mechanical Ventilator 50 06/23/16 21:26 93 28 50 General Appearance: on vent, patient on isolation Neck: supple Cardiovascular: normal rate, regular rhythm Respiratory/Chest: rhonchi - bilaterally Abdomen: normal bowel sounds, non tender Intake and Output 06/23/16 06/24/16 19:00 07:00 Intake Total 210 ml 465 ml Output Total 595 ml 650 ml Balance -385 ml -185 ml IV Total 110 ml 55 ml Tube Feeding 50 ml 260 ml Other 50 ml 150 ml Output Urine Total 595 ml 650 ml Laboratory Tests Test 06/24/16 03:40 06/24/16 07:31 White Blood Count 9.1 K/UL (4.8-10.8) Red Blood Count 2.83 M/UL (4.70-6.10) L Hemoglobin 8.5 G/DL (14.2-18.0) L Hematocrit 26.9 % (42.0-52.0) L Mean Corpuscular Volume 95 FL (80-99) Mean Corpuscular Hemoglobin 30.1 PG (27.0-31.0) Mean Corpuscular Hemoglobin Concent 31.7 G/DL (32.0-36.0) L Red Cell Distribution Width 16.5 % (11.6-14.8) H Platelet Count 266 K/UL (150-450) Mean Platelet Volume 5.4 FL (6.5-10.1) L Neutrophils (%) (Auto) 82.0 % (45.0-75.0) H Lymphocytes (%) (Auto) 8.1 % (20.0-45.0) L Monocytes (%) (Auto) 7.2 % (1.0-10.0) Eosinophils (%) (Auto) 2.4 % (0.0-3.0) Basophils (%) (Auto) 0.3 % (0.0-2.0) Sodium Level 149 mEQ/L (135-145) H Potassium Level 4.8 mEQ/L (3.4-4.9) Chloride Level 116 mEQ/L (98-107) H Carbon Dioxide Level 17 mEQ/L (20-30) L Anion Gap 16 (5-15) H Blood Urea Nitrogen 61 mg/dL (7-23) H Creatinine 2.8 mg/dL (0.7-1.2) H Estimat Glomerular Filtration Rate mL/min (>60) Glucose Level 103 mg/dL (74-106) Uric Acid 8.0 mg/dL (3.0-7.5) H Calcium Level 8.5 mg/dL (8.6-10.2) L Phosphorus Level 3.4 mg/dL (2.5-4.8) Magnesium Level 1.9 mg/dL (1.7-2.5) Total Bilirubin 0.3 mg/dL (0.0-1.2) Gamma Glutamyl Transpeptidase 20 U/L (8-61) Aspartate Amino Transf (AST/SGOT) 13 U/L (5-40) Alanine Aminotransferase (ALT/SGPT) 9 U/L (3-41) Alkaline Phosphatase 80 U/L (40-129) Total Creatine Kinase 21 U/L (38-174) L Troponin I < 0.30 ng/mL (<=0.30) C-Reactive Protein, Quantitative 18.0 mg/dL (< 0.5) H Pro-B-Type Natriuretic Peptide 20013 pg/mL (0-450) H Total Protein 5.1 g/dL (6.6-8.7) L Albumin 2.2 g/dL (3.5-5.2) L Globulin 2.9 g/dL Albumin/Globulin Ratio 0.7 (1.0-2.7) L Arterial Blood pH 7.420 (7.350-7.450) Arterial Blood Partial Pressure CO2 30.0 mmHg (35.0-45.0) L Arterial Blood Partial Pressure O2 126.4 mmHg (75.0-100.0) H Arterial Blood HCO3 19.0 mmol/L (22.0-26.0) L Arterial Blood Oxygen Saturation 98.0 % (92.0-98.0) Arterial Blood Base Excess -5 Adama Test Microbiology Date/Time Source Procedure Growth Status 06/23/16 17:00 Sputum Gram Stain - Final Resulted 06/23/16 17:00 Sputum Sputum Culture Pending Resulted HAILEE PATEL Jun 24, 2016 21:21
[2016-06-25] VITALS (24 sets, daily range): BP systolic 92–124; BP diastolic 43–87
[2016-06-25] MEDS: NovoLOG Insulin Flexpen SUBQ SCH ×4 (00:01→17:53)
[2016-06-25 06:14] LABS: BASOPHILS % (AUTO) 0.6 % (0.0-2.0); EOSINOPHILS % (AUTO) 2.7 % (0.0-3.0); LYMPHOCYTES % (AUTO) 8.2 % (20.0-45.0); MEAN CORPUSCULAR HEMOGLOBIN 29.3 PG (27.0-31.0); MEAN CORPUSCULAR HGB CONC 30.4 G/DL (32.0-36.0); MEAN CORPUSCULAR VOLUME 96 FL (80-99); MEAN PLATELET VOLUME 5.2 FL (6.5-10.1); MONOCYTES % (AUTO) 7.3 % (1.0-10.0); NEUTROPHILS % (AUTO) 81.2 % (45.0-75.0); PLATELET COUNT 275 K/UL (150-450); RED BLOOD COUNT 3.07 M/UL (4.70-6.10); RED CELL DISTRIBUTION WIDTH 16.3 % (11.6-14.8); WHITE BLOOD COUNT 10.1 K/UL (4.8-10.8)
[2016-06-25] MEDS: Sodium Citrate 30ml ORAL SCH ×2 (06:39)
[2016-06-25 06:55] LABS: ALANINE AMINOTRANSFERASE 9 U/L (3-41); ALBUMIN/GLOBULIN RATIO 0.6 (1.0-2.7); ANION GAP 15 (5-15); ASPARTATE AMINO TRANSFERASE 13 U/L (5-40); CALCIUM 8.4 mg/dL (8.6-10.2); CARBON DIOXIDE 20 mEQ/L (20-30); CHLORIDE 119 mEQ/L (98-107); CREATININE 2.8 mg/dL (0.7-1.2); HEMOLYSIS 7; MAGNESIUM 1.9 mg/dL (1.7-2.5); PHOSPHORUS 3.1 mg/dL (2.5-4.8); POTASSIUM 4.7 mEQ/L (3.4-4.9); SODIUM 154 mEQ/L (135-145); TOTAL PROTEIN 5.2 g/dL (6.6-8.7)
[2016-06-25] MEDS: LORazepam Inj 2mg/ml 1ml IV PRN (08:42)
[2016-06-25] MEDS: Docusate 100mg tablet NG SCH ×3 (08:43→17:56)
[2016-06-25] MEDS: Pantoprazole Inj IVP SCH (08:43)
[2016-06-25] MEDS: Meropenem 500 MG in NS 55 ML IVPB SCH (08:43)
[2016-06-25] MEDS: Mycophenolate 250mg cap ORAL SCH (08:43)
[2016-06-25] MEDS: Lactobacillus-GG tablet ORAL SCH (08:44)
[2016-06-25] MEDS: Nephrovite tab NG SCH (08:44)
[2016-06-25] MEDS: Dakin's 0.5% (Full Strength) 16oz TOPIC SCH (08:45)
[2016-06-25 09:30] LABS: ABG ALLEN TEST POSITIVE; ABG BASE EXCESS -3.1; ABG PCO2 34.5 mmHg (35.0-45.0)
[2016-06-25] MEDS: Morphine Sulfate 2mg/ml Inj IVP PRN (09:45)
[2016-06-25] MEDS ORDERED: Norco 5mg/325mg tab GT PRN (10:23)
[2016-06-25] MEDS ORDERED: Zolpidem 5mg tab GT PRN (10:24)
--- NOTE | 2016-06-25 10:44 | Diagnostic Imaging Report ---
Indication: DYSPNEA Technique: One view of the chest Comparison: 06/24/2016 Findings: The heart remains enlarged. Bilateral interstitial and alveolar congestion, left-sided pleural effusion persists, largely unchanged. Nasogastric and endotracheal tubes remain. Left arm PICC is stable Impression: Unchanged, over one day, findings as above.
--- NOTE | 2016-06-25 11:06 | Pulmonolgy Critical Care Note ---
Critical Care - Asmt/Plan Problems: (1) Respiratory failure requiring intubation (2) Acute encephalopathy (3) ATN (acute tubular necrosis) (4) Sepsis (5) Decubitus skin ulcer Assessment & Plan: on hip, left and right tuberosity of pelvis, sacral area and scrotum stage 2 Respiratory: monitor respiratory rate, adjust FIO2, CXR, weaning trial Cardiac: continue to monitor HR/BP Renal: check electrolytes Gastrointestinal: continue feedings/current rate Endocrine: monitor blood sugar, check HgA1C, continue sliding scale insulin Hematologic: transfuse if hgb<8.5 Neurologic: PRN Ativan, PRN Morphine, keep patient comfortable Disposition: keep in ICU Time Spent (Minutes): 40 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, 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, 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 Critical Care - Objective Last 24 Hour Vital Signs Date Time Temp Pulse Resp B/P Pulse Ox O2 Delivery O2 Flow Rate FiO2 06/25/16 09:05 97 26 40 06/25/16 09:00 96 16 106/43 100 Mechanical Ventilator 50 06/25/16 08:00 95 06/25/16 08:00 99.3 95 18 109/43 100 Mechanical Ventilator 50 06/25/16 08:00 40 06/25/16 07:05 96 28 40 06/25/16 07:00 96 20 112/45 100 Mechanical Ventilator 50 06/25/16 06:00 94 20 113/52 100 Mechanical Ventilator 50 06/25/16 05:00 99.7 95 20 96/49 100 Mechanical Ventilator 50 06/25/16 04:54 93 22 40 06/25/16 04:00 40 06/25/16 04:00 84 06/25/16 04:00 88 20 100/46 100 Mechanical Ventilator 50 06/25/16 03:15 92 23 40 06/25/16 03:00 91 20 98/55 100 Mechanical Ventilator 50 06/25/16 02:00 100.7 88 20 94/50 100 Mechanical Ventilator 50 06/25/16 01:30 101.0 06/25/16 01:21 93 25 40 06/25/16 01:00 91 20 92/50 100 Mechanical Ventilator 50 06/25/16 00:00 40 06/25/16 00:00 101.0 98 20 123/59 100 Mechanical Ventilator 50 06/25/16 00:00 92 06/24/16 23:00 90 20 102/51 100 Mechanical Ventilator 50 06/24/16 23:00 95 18 40 06/24/16 22:00 95 20 110/56 100 Mechanical Ventilator 50 06/24/16 21:22 94 17 40 06/24/16 21:00 92 19 101/48 100 Mechanical Ventilator 50 06/24/16 20:00 50 06/24/16 20:00 90 06/24/16 20:00 96.9 92 20 113/64 100 Mechanical Ventilator 50 06/24/16 19:19 89 21 40 06/24/16 19:00 93 19 120/60 100 Mechanical Ventilator 50 06/24/16 18:56 97.8 06/24/16 18:00 92 20 110/53 100 Mechanical Ventilator 50 06/24/16 17:56 99/50 06/24/16 17:00 85 22 102/51 100 Mechanical Ventilator 50 06/24/16 16:57 82 15 50 06/24/16 16:00 78 06/24/16 16:00 97.8 85 21 88/48 100 Mechanical Ventilator 50 06/24/16 16:00 50 06/24/16 15:00 80 22 79/45 100 Mechanical Ventilator 50 06/24/16 15:00 83 18 50 06/24/16 14:00 84 23 90/51 100 Mechanical Ventilator 50 06/24/16 13:00 79 23 81/41 100 Mechanical Ventilator 50 06/24/16 12:39 85 16 50 06/24/16 12:00 87 06/24/16 12:00 98.9 81 23 102/52 100 Mechanical Ventilator 50 06/24/16 12:00 50 Status: awake Condition: critical HEENT: atraumatic Neck: full ROM Heart: HR/BP stable, regular Extremities: no C/C/E Decubiti: location, stage Micro: Microbiology Date/Time Source Procedure Growth Status 06/23/16 10:50 Blood Blood Culture - Preliminary NO GROWTH AFTER 24 HOURS Resulted 06/23/16 10:40 Blood Blood Culture - Preliminary NO GROWTH AFTER 24 HOURS Resulted 06/24/16 13:50 Sputum Gram Stain Pending Resulted 06/24/16 13:50 Sputum Sputum Culture - Preliminary NORMAL GHISLAINE PRESENT Resulted 06/23/16 17:00 Sputum Gram Stain - Final Resulted 06/23/16 17:00 Sputum Culture - Preliminary Fany Albicans Resulted Accucheck: 117 Critical Care - Subjective ROS Limited/Unobtainable: No ICU Day: 4 Intubation Day: 4 Condition: critical EKG Rhythm: Sinus Rhythm FI02: 40 Vent Support Breath Rate: 15 Vent Support Mode: AC Vent Tidal Volume: 600 Sputum Amount: Large PEEP: 5.0 PIP: 17 Tube Feeding Amount: 40 I&O: Intake and Output 06/24/16 06/25/16 19:00 07:00 Intake Total 1035 ml 1065 ml Output Total 530 ml 1753 ml Balance 505 ml -688 ml Free Water 220 ml 100 ml IV Total 355 ml 355 ml Tube Feeding 460 ml 480 ml Other 130 ml Output Urine Total 530 ml 1753 ml CXR: bilateral edema, et in good position ET-Tube: 8.0 ET Position: 23 Labs: Laboratory Tests Test 06/25/16 05:20 06/25/16 09:23 White Blood Count 10.1 K/UL (4.8-10.8) Red Blood Count 3.07 M/UL (4.70-6.10) L Hemoglobin 9.0 G/DL (14.2-18.0) L Hematocrit 29.5 % (42.0-52.0) L Mean Corpuscular Volume 96 FL (80-99) Mean Corpuscular Hemoglobin 29.3 PG (27.0-31.0) Mean Corpuscular Hemoglobin Concent 30.4 G/DL (32.0-36.0) L Red Cell Distribution Width 16.3 % (11.6-14.8) H Platelet Count 275 K/UL (150-450) Mean Platelet Volume 5.2 FL (6.5-10.1) L Neutrophils (%) (Auto) 81.2 % (45.0-75.0) H Lymphocytes (%) (Auto) 8.2 % (20.0-45.0) L Monocytes (%) (Auto) 7.3 % (1.0-10.0) Eosinophils (%) (Auto) 2.7 % (0.0-3.0) Basophils (%) (Auto) 0.6 % (0.0-2.0) Sodium Level 154 mEQ/L (135-145) H Potassium Level 4.7 mEQ/L (3.4-4.9) Chloride Level 119 mEQ/L (98-107) H Carbon Dioxide Level 20 mEQ/L (20-30) Anion Gap 15 (5-15) Blood Urea Nitrogen 57 mg/dL (7-23) H Creatinine 2.8 mg/dL (0.7-1.2) H Estimat Glomerular Filtration Rate mL/min (>60) Glucose Level 135 mg/dL (74-106) H Calcium Level 8.4 mg/dL (8.6-10.2) L Phosphorus Level 3.1 mg/dL (2.5-4.8) Magnesium Level 1.9 mg/dL (1.7-2.5) Total Bilirubin 0.2 mg/dL (0.0-1.2) Aspartate Amino Transf (AST/SGOT) 13 U/L (5-40) Alanine Aminotransferase (ALT/SGPT) 9 U/L (3-41) Alkaline Phosphatase 81 U/L (40-129) Total Protein 5.2 g/dL (6.6-8.7) L Albumin 2.1 g/dL (3.5-5.2) L Globulin 3.1 g/dL Albumin/Globulin Ratio 0.6 (1.0-2.7) L Arterial Blood pH 7.401 (7.350-7.450) Arterial Blood Partial Pressure CO2 34.5 mmHg (35.0-45.0) L Arterial Blood Partial Pressure O2 90.8 mmHg (75.0-100.0) Arterial Blood HCO3 21.2 mmol/L (22.0-26.0) L Arterial Blood Oxygen Saturation 96.2 % (92.0-98.0) Arterial Blood Base Excess -3.1 Adama Test Positive AMADO SCHULER Jun 25, 2016 11:05
[2016-06-25] MEDS: Lactobacillus-GG tablet GT SCH ×2 (12:36→17:51)
[2016-06-25] MEDS: Sodium Citrate 30ml GT SCH ×2 (12:36→17:50)
[2016-06-25] MEDS ORDERED: Lidocaine 1% Plain 30 ml INJ PRN (13:15)
[2016-06-25] MEDS ORDERED: Sodium Bicarbonate 8.4% 50ml Inj IV PRN (13:15)
[2016-06-25] MEDS ORDERED: Heparin 2000 units/Ns 1000ml INJ PRN (13:15)
--- NOTE | 2016-06-25 14:51 | General Progress Note ---
Assessment/Plan Status: stable - - from renal stand, unchanged Assessment/Plan status: Acute Renal Failure- resolving Acute respiratory failure- septic shock , metabolic acidosis Superimposed on CRI due to DM / HTN PVD s/p amputation- Severe Anemia s/p Heart transplant sacral decub plan: slow Hydrate- free water, D5 watch CHF Sxs transfused- wound care- monitor renal parameters- optimize cardiac and pulm status- wean as possible. avoid nephrotoxics per ID and cardiology Bicitra- discussed with RN Subjective ROS Limited/Unobtainable: Yes Constitutional: Reports: other - greenish tracheal secretions Allergies: Coded Allergies: ADHESIVE TAPE (Verified Allergy, Unknown, Rash, 05/27/16) PLASTIC TAPE-COPIED FROM UNCODED SECTION PENICILLINS (Verified Allergy, Unknown, 06/20/16) PROCAINE (Verified Allergy, Unknown, Rash, 08/19/14) COPIED FRON UNCODED Objective Last 24 Hour Vital Signs Date Time Temp Pulse Resp B/P Pulse Ox O2 Delivery O2 Flow Rate FiO2 06/25/16 14:00 100.3 96 20 108/47 100 Mechanical Ventilator 40 06/25/16 13:10 93 20 40 06/25/16 13:00 96 21 101/48 100 Mechanical Ventilator 50 06/25/16 12:00 98 06/25/16 12:00 40 06/25/16 12:00 101.9 98 22 106/64 100 Mechanical Ventilator 50 06/25/16 11:20 93 21 40 06/25/16 11:00 93 18 98/48 100 Mechanical Ventilator 50 06/25/16 10:00 95 18 102/52 100 Mechanical Ventilator 50 06/25/16 09:05 97 26 40 06/25/16 09:00 96 16 106/43 100 Mechanical Ventilator 50 06/25/16 08:00 95 06/25/16 08:00 99.3 95 18 109/43 100 Mechanical Ventilator 50 06/25/16 08:00 40 06/25/16 07:05 96 28 40 06/25/16 07:00 96 20 112/45 100 Mechanical Ventilator 50 06/25/16 06:00 94 20 113/52 100 Mechanical Ventilator 50 06/25/16 05:00 99.7 95 20 96/49 100 Mechanical Ventilator 50 06/25/16 04:54 93 22 40 06/25/16 04:00 40 06/25/16 04:00 84 06/25/16 04:00 88 20 100/46 100 Mechanical Ventilator 50 06/25/16 03:15 92 23 40 06/25/16 03:00 91 20 98/55 100 Mechanical Ventilator 50 06/25/16 02:00 100.7 88 20 94/50 100 Mechanical Ventilator 50 06/25/16 01:30 101.0 06/25/16 01:21 93 25 40 06/25/16 01:00 91 20 92/50 100 Mechanical Ventilator 50 06/25/16 00:00 40 06/25/16 00:00 101.0 98 20 123/59 100 Mechanical Ventilator 50 06/25/16 00:00 92 06/24/16 23:00 90 20 102/51 100 Mechanical Ventilator 50 06/24/16 23:00 95 18 40 06/24/16 22:00 95 20 110/56 100 Mechanical Ventilator 50 06/24/16 21:22 94 17 40 06/24/16 21:00 92 19 101/48 100 Mechanical Ventilator 50 06/24/16 20:00 50 06/24/16 20:00 90 06/24/16 20:00 96.9 92 20 113/64 100 Mechanical Ventilator 50 06/24/16 19:19 89 21 40 06/24/16 19:00 93 19 120/60 100 Mechanical Ventilator 50 06/24/16 18:56 97.8 06/24/16 18:00 92 20 110/53 100 Mechanical Ventilator 50 06/24/16 17:56 99/50 06/24/16 17:00 85 22 102/51 100 Mechanical Ventilator 50 06/24/16 16:57 82 15 50 06/24/16 16:00 78 06/24/16 16:00 97.8 85 21 88/48 100 Mechanical Ventilator 50 06/24/16 16:00 50 06/24/16 15:00 80 22 79/45 100 Mechanical Ventilator 50 06/24/16 15:00 83 18 50 Intake and Output 06/24/16 06/25/16 19:00 07:00 Intake Total 1035 ml 1065 ml Output Total 530 ml 1753 ml Balance 505 ml -688 ml Free Water 220 ml 100 ml IV Total 355 ml 355 ml Tube Feeding 460 ml 480 ml Other 130 ml Output Urine Total 530 ml 1753 ml Laboratory Tests 06/25/16 05:20: White Blood Count 10.1, Red Blood Count 3.07L, Hemoglobin 9.0L, Hematocrit 29.5L , Mean Corpuscular Volume 96, Mean Corpuscular Hemoglobin 29.3, Mean Corpuscular Hemoglobin Concent 30.4L, Red Cell Distribution Width 16.3H, Platelet Count 275, Mean Platelet Volume 5.2L, Neutrophils (%) (Auto) 81.2H, Lymphocytes (%) (Auto) 8.2L, Monocytes (%) (Auto) 7.3, Eosinophils (%) (Auto) 2.7, Basophils (%) (Auto) 0.6, Miscellaneous Test 2 [Pending], Sodium Level 154H , Potassium Level 4.7, Chloride Level 119H, Carbon Dioxide Level 20, Anion Gap 15, Blood Urea Nitrogen 57H, Creatinine 2.8H, Estimat Glomerular Filtration Rate , Glucose Level 135H, Calcium Level 8.4L, Phosphorus Level 3.1, Magnesium Level 1.9, Total Bilirubin 0.2, Aspartate Amino Transf (AST/SGOT) 13, Alanine Aminotransferase (ALT/SGPT) 9, Alkaline Phosphatase 81, Total Protein 5.2L, Albumin 2.1L, Globulin 3.1, Albumin/Globulin Ratio 0.6L 06/25/16 09:23: Arterial Blood pH 7.401, Arterial Blood Partial Pressure CO2 34.5L, Arterial Blood Partial Pressure O2 90.8, Arterial Blood HCO3 21.2L, Arterial Blood Oxygen Saturation 96.2, Arterial Blood Base Excess -3.1, Adama Test Positive Height (Feet): 5 Height (Inches): 8.00 Weight (Pounds): 193 EENT: other - intubated on vent Cardiovascular: tachycardia Respiratory/Chest: decreased breath sounds Abdomen: distended Objective no other changes in PE BRIJESH CALDERON Jun 25, 2016 14:51
[2016-06-25] MEDS: DOPamine 400mg/250ml 250 ML IV SCH (16:15)
[2016-06-25] MEDS: Mycophenolate 250mg cap GT SCH (17:51)
--- NOTE | 2016-06-25 18:26 | Infectious Diseases Prog Note ---
Assessment/Plan Problems: (1) Sepsis Assessment & Plan: with leukocytosis and hypotension, spiked fever when switching daptomycin to zyvox to cover for possible pneumonia , will switch him back to daptomycin and add levofloxacin , and continue meropenem , repeated blood culture and sputum culture are pending , recommend transfer to [place] as soon as possible for higher level of care, D/W family and primary provider (2) Respiratory failure requiring intubation Assessment & Plan: with new right lungs infiltrates on CXR, possible pneumonia , on daptomycin and meropenem, will ad levofloxacin for empiric coverage , pulmonary is following (3) Decubital ulcer Assessment & Plan: no need for surgical debridement as per plastic surgery , 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 continue local wound care , and off loading. (4) Hyperkalemia, diminished renal excretion Assessment & Plan: improving, due to CKD, on bicarbonate and Kayexalate, renal is following (5) Anemia Assessment & Plan: S/P blood transfusion, monitor H&H, need to rule out GI source, recommend GI consult. (6) PVD (peripheral vascular disease) Assessment & Plan: S/P B/L AKA. (7) CKD (chronic kidney disease) Assessment & Plan: avoid nephrotoxic meds, monitor UOP, and renal function, renal is following (8) Heart transplant status Assessment & Plan: recommend to contact his heart transplant team at [place] for further recommendation, and possible transfer to [place] for higher level of care , continue transplant meds , and adjust as per his GFR. Subjective Respiratory: Reports: other - thick secretions from the ET tube Allergies: Coded Allergies: ADHESIVE TAPE (Verified Allergy, Unknown, Rash, 05/27/16) PLASTIC TAPE-COPIED FROM UNCODED SECTION PENICILLINS (Verified Allergy, Unknown, 06/20/16) PROCAINE (Verified Allergy, Unknown, Rash, 08/19/14) COPIED FRON UNCODED Subjective he was intubated on mechanical ventilation but awake and respond well to verbal commands, afebrile. Objective Vital Signs Last 24 Hour Vital Signs Date Time Temp Pulse Resp B/P Pulse Ox O2 Delivery O2 Flow Rate FiO2 06/25/16 17:00 90 22 97/49 96 Mechanical Ventilator 40 2/10/17 16:57 89 23 40 06/25/16 16:15 102/56 06/25/16 16:00 99.3 90 17 102/56 96 Mechanical Ventilator 40 06/25/16 16:00 90 06/25/16 16:00 40 06/25/16 15:00 92 22 106/45 100 Mechanical Ventilator 40 06/25/16 15:00 90 15 40 06/25/16 14:00 100.3 96 20 108/47 100 Mechanical Ventilator 40 06/25/16 13:36 100.3 06/25/16 13:10 93 20 40 06/25/16 13:00 96 21 101/48 100 Mechanical Ventilator 50 06/25/16 12:00 98 06/25/16 12:00 40 06/25/16 12:00 101.9 98 22 106/64 100 Mechanical Ventilator 50 06/25/16 11:20 93 21 40 06/25/16 11:00 93 18 98/48 100 Mechanical Ventilator 50 06/25/16 10:00 95 18 102/52 100 Mechanical Ventilator 50 06/25/16 09:05 97 26 40 06/25/16 09:00 96 16 106/43 100 Mechanical Ventilator 50 06/25/16 08:00 95 06/25/16 08:00 99.3 95 18 109/43 100 Mechanical Ventilator 50 06/25/16 08:00 40 06/25/16 07:05 96 28 40 06/25/16 07:00 96 20 112/45 100 Mechanical Ventilator 50 06/25/16 06:00 94 20 113/52 100 Mechanical Ventilator 50 06/25/16 05:00 99.7 95 20 96/49 100 Mechanical Ventilator 50 06/25/16 04:54 93 22 40 06/25/16 04:00 40 06/25/16 04:00 84 06/25/16 04:00 88 20 100/46 100 Mechanical Ventilator 50 06/25/16 03:15 92 23 40 06/25/16 03:00 91 20 98/55 100 Mechanical Ventilator 50 06/25/16 02:00 100.7 88 20 94/50 100 Mechanical Ventilator 50 06/25/16 01:21 93 25 40 06/25/16 01:00 91 20 92/50 100 Mechanical Ventilator 50 06/25/16 00:00 40 06/25/16 00:00 101.0 98 20 123/59 100 Mechanical Ventilator 50 06/25/16 00:00 92 06/24/16 23:00 90 20 102/51 100 Mechanical Ventilator 50 06/24/16 23:00 95 18 40 06/24/16 22:00 95 20 110/56 100 Mechanical Ventilator 50 06/24/16 21:22 94 17 40 06/24/16 21:00 92 19 101/48 100 Mechanical Ventilator 50 06/24/16 20:00 50 06/24/16 20:00 90 06/24/16 20:00 96.9 92 20 113/64 100 Mechanical Ventilator 50 06/24/16 19:19 89 21 40 06/24/16 19:00 93 19 120/60 100 Mechanical Ventilator 50 06/24/16 18:56 97.8 Height (Feet): 5 Height (Inches): 8.00 Weight (Pounds): 193 General Appearance: WD/WN, no acute distress HEENT: normocephalic, atraumatic, anicteric, mucous membranes moist Respiratory/Chest: chest wall non-tender, normal breath sounds, no respiratory distress, no accessory muscle use, decreased breath sounds, crackles/rales Cardiovascular: normal peripheral pulses, normal rate, regular rhythm, no gallop/murmur Abdomen: normal bowel sounds, soft, non tender, no organomegaly, no mass, no scars, distended Extremities: no cyanosis Skin: no rash, no lesions, ulcers Microbiology Date/Time Source Procedure Growth Status 06/23/16 10:50 Blood Blood Culture - Preliminary NO GROWTH AFTER 24 HOURS Resulted 06/23/16 10:40 Blood Blood Culture - Preliminary NO GROWTH AFTER 24 HOURS Resulted 06/24/16 13:50 Sputum Gram Stain - Final Resulted 06/24/16 13:50 Sputum Sputum Culture - Preliminary NORMAL GHISLAINE PRESENT Resulted 06/23/16 17:00 Sputum Gram Stain - Final Resulted 06/23/16 17:00 Sputum Culture - Preliminary Fany Albicans Resulted Laboratory Tests Test 06/25/16 05:20 06/25/16 09:23 White Blood Count 10.1 K/UL (4.8-10.8) Red Blood Count 3.07 M/UL (4.70-6.10) L Hemoglobin 9.0 G/DL (14.2-18.0) L Hematocrit 29.5 % (42.0-52.0) L Mean Corpuscular Volume 96 FL (80-99) Mean Corpuscular Hemoglobin 29.3 PG (27.0-31.0) Mean Corpuscular Hemoglobin Concent 30.4 G/DL (32.0-36.0) L Red Cell Distribution Width 16.3 % (11.6-14.8) H Platelet Count 275 K/UL (150-450) Mean Platelet Volume 5.2 FL (6.5-10.1) L Neutrophils (%) (Auto) 81.2 % (45.0-75.0) H Lymphocytes (%) (Auto) 8.2 % (20.0-45.0) L Monocytes (%) (Auto) 7.3 % (1.0-10.0) Eosinophils (%) (Auto) 2.7 % (0.0-3.0) Basophils (%) (Auto) 0.6 % (0.0-2.0) Miscellaneous Test 2 Pending Sodium Level 154 mEQ/L (135-145) H Potassium Level 4.7 mEQ/L (3.4-4.9) Chloride Level 119 mEQ/L (98-107) H Carbon Dioxide Level 20 mEQ/L (20-30) Anion Gap 15 (5-15) Blood Urea Nitrogen 57 mg/dL (7-23) H Creatinine 2.8 mg/dL (0.7-1.2) H Estimat Glomerular Filtration Rate mL/min (>60) Glucose Level 135 mg/dL (74-106) H Calcium Level 8.4 mg/dL (8.6-10.2) L Phosphorus Level 3.1 mg/dL (2.5-4.8) Magnesium Level 1.9 mg/dL (1.7-2.5) Total Bilirubin 0.2 mg/dL (0.0-1.2) Aspartate Amino Transf (AST/SGOT) 13 U/L (5-40) Alanine Aminotransferase (ALT/SGPT) 9 U/L (3-41) Alkaline Phosphatase 81 U/L (40-129) Total Protein 5.2 g/dL (6.6-8.7) L Albumin 2.1 g/dL (3.5-5.2) L Globulin 3.1 g/dL Albumin/Globulin Ratio 0.6 (1.0-2.7) L Arterial Blood pH 7.401 (7.350-7.450) Arterial Blood Partial Pressure CO2 34.5 mmHg (35.0-45.0) L Arterial Blood Partial Pressure O2 90.8 mmHg (75.0-100.0) Arterial Blood HCO3 21.2 mmol/L (22.0-26.0) L Arterial Blood Oxygen Saturation 96.2 % (92.0-98.0) Arterial Blood Base Excess -3.1 Adama Test Positive Current Medications Medications (Trade) Dose Ordered Sig/Koffi Route PRN Reason Start Time Stop Time Status Last Admin Dose Admin Acetaminophen (Tylenol) 650 mg Q4H PRN ORAL fever 06/23/16 10:30 07/23/16 10:29 06/25/16 12:37 Acetaminophen/ Hydrocodone Bitart ([place] 5/325) 1 tab Q4H PRN GT Moderate Pain (Pain Scale 4-6) 06/25/16 10:23 06/30/16 08:59 Clopidogrel Bisulfate (Plavix) 75 mg DAILY GT 06/25/16 10:22 07/23/16 08:59 Collagenase (Santyl) 1 applic DAILY TOPIC 06/23/16 09:00 07/23/16 08:59 06/25/16 08:44 Daptomycin 500 mg/ Sodium Chloride 55 ml @ 110 mls/hr Q48H IV 06/25/16 19:00 07/02/16 18:59 Dextrose (Dextrose 50%) STAT PRN IV Hypoglycemia 06/23/16 22:30 07/23/16 22:29 Docusate Sodium (Colace) 100 mg TID NG 06/24/16 09:00 07/24/16 08:59 06/25/16 17:56 Dopamine HCl/ Dextrose (DOPamine 400mg/ 250ml) 250 ml @ 0 mls/hr Q24H IV 06/24/16 16:15 07/24/16 16:14 06/24/16 17:56 Epoetin Mars (Procrit (for non ESRD use)) 7,000 units TUE-WED-TUE SUBQ 06/23/16 21:00 07/23/16 20:59 06/23/16 21:17 Heparin Sodium/ Sodium Chloride 2000 unit 2,000 unit ONCE PRN INJ PICC PLACEMENT 2/10/17 13:15 06/28/16 23:59 Insulin Aspart (NovoLOG) EVERY 6 HOURS SUBQ 06/23/16 12:00 07/23/16 11:59 06/25/16 17:53 Lactobacillus Acidophilus (Culturelle) 1 tab THREE TIMES A DAY GT 06/25/16 10:23 07/23/16 08:59 06/25/16 17:51 Levofloxacin (Levaquin 750mg/ D5W) 150 ml @ 150 mls/hr Q48H IVPB 06/25/16 18:00 07/02/16 17:59 06/25/16 17:51 Lidocaine HCl (Xylocaine 1% 30ml) 30 ml ONCE PRN INJ PICC PLACEMENT 06/25/16 13:15 06/28/16 23:59 Lorazepam (Ativan 2mg/ml 1ml) 0.5 mg Q4H PRN IV For Anxiety 06/23/16 10:30 06/30/16 10:29 06/25/16 08:42 Meropenem/Sodium Chloride (Merrem/Sodium Chloride) 110 ml @ 220 mls/hr Q12HR IVPB 06/25/16 21:00 06/30/16 20:59 Morphine Sulfate (Morphine Sulfate) 1 mg Q4H PRN IVP Severe Pain (Pain Scale 7-10) 06/23/16 11:00 06/30/16 10:59 06/25/16 09:45 Mycophenolate Mofetil 500 mg 500 mg TWICE A DAY GT 06/25/16 10:24 07/23/16 08:59 06/25/16 17:51 Ondansetron HCl (Zofran) 4 mg Q6H PRN IVP Nausea & Vomiting 06/23/16 10:30 07/23/16 10:29 06/24/16 09:50 Pantoprazole (Protonix) 40 mg DAILY IVP 06/23/16 09:00 07/23/16 08:59 06/25/16 08:43 Polyethylene Glycol (Miralax) 17 gm DAILY PRN GT Constipation 06/25/16 10:23 07/23/16 08:59 Sodium Hypochlorite (Dakin's Full Strength) 1 applic DAILY TOPIC 06/23/16 09:00 07/23/16 08:59 06/25/16 08:45 Sodium Bicarbonate (Sodium Bicarbonate) 50 ml ONCE PRN IV PICC PLACEMENT 06/25/16 13:15 06/28/16 23:59 Sodium Citrate (Bicitra) 30 ml EVERY 6 HOURS GT 06/25/16 10:24 07/23/16 11:59 06/25/16 17:50 Tacrolimus (Prograf) 0.5 mg QHS ORAL 06/24/16 21:00 07/24/16 20:59 06/24/16 20:32 Tacrolimus 1 mg 1 mg DAILY@0800 ORAL 06/24/16 09:30 07/24/16 09:29 06/25/16 09:45 Vitamin B Complex/ Vit C/Folic Acid (Nephrovite) 1 tab DAILY NG 06/23/16 13:00 07/23/16 12:59 06/25/16 08:44 Zolpidem Tartrate (Ambien) 5 mg HSPRN PRN GT Insomnia 06/25/16 10:24 07/23/16 22:29 Jose Mott M.D. Jun 25, 2016 18:26
[2016-06-25] MEDS: DAPTOmycin 500 MG in NS 55 ML IV SCH (18:59)
--- NOTE | 2016-06-25 19:31 | Cardiology Progress Note ---
Assessment/Plan Assessment/Plan hyperkalemia due ro renal failure and over use of benicar (two time the upper limit of max does recommended) acute on chronic renal filure s/p heart tx dm with endorgan disease pvd obesity anemia htn acute reparatory failure and acidosis hypernatremia presumed pneumonia remain on the vent Prograf level still pending discussed with [facility] personally, they will call m with results received prbc tx a few lanre go would be tolerant of anemia since post transplant cr improved echo ef 50-55% d/w rn not on pressor cxr personally reviewed trop and ekg neg bnp non diagnostic in light of renal insuf presume pneumonia on abx getting free water now as na increase nephrology following Subjective ROS Limited/Unobtainable: Yes Cardiovascular: Denies: chest pain Respiratory: Reports: shortness of breath Gastrointestinal/Abdominal: Denies: abdominal pain, black stools Genitourinary: Denies: burning Subjective on a vent awake a dn responsive Objective Last 24 Hour Vital Signs Date Time Temp Pulse Resp B/P Pulse Ox O2 Delivery O2 Flow Rate FiO2 06/25/16 19:06 97 17 40 06/25/16 19:00 98 26 108/57 100 Mechanical Ventilator 40 06/25/16 18:00 99 23 124/60 98 Mechanical Ventilator 40 06/25/16 17:00 90 22 97/49 96 Mechanical Ventilator 40 06/25/16 16:57 89 23 40 06/25/16 16:15 102/56 06/25/16 16:00 99.3 90 17 102/56 96 Mechanical Ventilator 40 06/25/16 16:00 90 06/25/16 16:00 40 06/25/16 15:00 92 22 106/45 100 Mechanical Ventilator 40 06/25/16 15:00 90 15 40 06/25/16 14:00 100.3 96 20 108/47 100 Mechanical Ventilator 40 06/25/16 13:36 100.3 06/25/16 13:10 93 20 40 06/25/16 13:00 96 21 101/48 100 Mechanical Ventilator 50 06/25/16 12:00 98 06/25/16 12:00 40 06/25/16 12:00 101.9 98 22 106/64 100 Mechanical Ventilator 50 06/25/16 11:20 93 21 40 06/25/16 11:00 93 18 98/48 100 Mechanical Ventilator 50 06/25/16 10:00 95 18 102/52 100 Mechanical Ventilator 50 06/25/16 09:05 97 26 40 06/25/16 09:00 96 16 106/43 100 Mechanical Ventilator 50 06/25/16 08:00 95 06/25/16 08:00 99.3 95 18 109/43 100 Mechanical Ventilator 50 06/25/16 08:00 40 06/25/16 07:05 96 28 40 06/25/16 07:00 96 20 112/45 100 Mechanical Ventilator 50 06/25/16 06:00 94 20 113/52 100 Mechanical Ventilator 50 06/25/16 05:00 99.7 95 20 96/49 100 Mechanical Ventilator 50 06/25/16 04:54 93 22 40 06/25/16 04:00 40 06/25/16 04:00 84 06/25/16 04:00 88 20 100/46 100 Mechanical Ventilator 50 06/25/16 03:15 92 23 40 06/25/16 03:00 91 20 98/55 100 Mechanical Ventilator 50 06/25/16 02:00 100.7 88 20 94/50 100 Mechanical Ventilator 50 06/25/16 01:21 93 25 40 06/25/16 01:00 91 20 92/50 100 Mechanical Ventilator 50 06/25/16 00:00 40 06/25/16 00:00 101.0 98 20 123/59 100 Mechanical Ventilator 50 06/25/16 00:00 92 06/24/16 23:00 90 20 102/51 100 Mechanical Ventilator 50 06/24/16 23:00 95 18 40 06/24/16 22:00 95 20 110/56 100 Mechanical Ventilator 50 06/24/16 21:22 94 17 40 06/24/16 21:00 92 19 101/48 100 Mechanical Ventilator 50 06/24/16 20:00 50 06/24/16 20:00 90 06/24/16 20:00 96.9 92 20 113/64 100 Mechanical Ventilator 50 General Appearance: no apparent distress, alert, on vent, patient on isolation Neck: supple Cardiovascular: normal rate, regular rhythm Respiratory/Chest: lungs clear, normal breath sounds Abdomen: normal bowel sounds, non tender, soft Extremities: non-tender, no swelling Intake and Output 06/24/16 06/25/16 19:00 07:00 Intake Total 1035 ml 1065 ml Output Total 530 ml 1753 ml Balance 505 ml -688 ml Free Water 220 ml 100 ml IV Total 355 ml 355 ml Tube Feeding 460 ml 480 ml Other 130 ml Output Urine Total 530 ml 1753 ml Laboratory Tests Test 06/25/16 05:20 06/25/16 09:23 White Blood Count 10.1 K/UL (4.8-10.8) Red Blood Count 3.07 M/UL (4.70-6.10) L Hemoglobin 9.0 G/DL (14.2-18.0) L Hematocrit 29.5 % (42.0-52.0) L Mean Corpuscular Volume 96 FL (80-99) Mean Corpuscular Hemoglobin 29.3 PG (27.0-31.0) Mean Corpuscular Hemoglobin Concent 30.4 G/DL (32.0-36.0) L Red Cell Distribution Width 16.3 % (11.6-14.8) H Platelet Count 275 K/UL (150-450) Mean Platelet Volume 5.2 FL (6.5-10.1) L Neutrophils (%) (Auto) 81.2 % (45.0-75.0) H Lymphocytes (%) (Auto) 8.2 % (20.0-45.0) L Monocytes (%) (Auto) 7.3 % (1.0-10.0) Eosinophils (%) (Auto) 2.7 % (0.0-3.0) Basophils (%) (Auto) 0.6 % (0.0-2.0) Miscellaneous Test 2 Pending Sodium Level 154 mEQ/L (135-145) H Potassium Level 4.7 mEQ/L (3.4-4.9) Chloride Level 119 mEQ/L (98-107) H Carbon Dioxide Level 20 mEQ/L (20-30) Anion Gap 15 (5-15) Blood Urea Nitrogen 57 mg/dL (7-23) H Creatinine 2.8 mg/dL (0.7-1.2) H Estimat Glomerular Filtration Rate mL/min (>60) Glucose Level 135 mg/dL (74-106) H Calcium Level 8.4 mg/dL (8.6-10.2) L Phosphorus Level 3.1 mg/dL (2.5-4.8) Magnesium Level 1.9 mg/dL (1.7-2.5) Total Bilirubin 0.2 mg/dL (0.0-1.2) Aspartate Amino Transf (AST/SGOT) 13 U/L (5-40) Alanine Aminotransferase (ALT/SGPT) 9 U/L (3-41) Alkaline Phosphatase 81 U/L (40-129) Total Protein 5.2 g/dL (6.6-8.7) L Albumin 2.1 g/dL (3.5-5.2) L Globulin 3.1 g/dL Albumin/Globulin Ratio 0.6 (1.0-2.7) L Arterial Blood pH 7.401 (7.350-7.450) Arterial Blood Partial Pressure CO2 34.5 mmHg (35.0-45.0) L Arterial Blood Partial Pressure O2 90.8 mmHg (75.0-100.0) Arterial Blood HCO3 21.2 mmol/L (22.0-26.0) L Arterial Blood Oxygen Saturation 96.2 % (92.0-98.0) Arterial Blood Base Excess -3.1 Adama Test Positive Microbiology Date/Time Source Procedure Growth Status 06/23/16 10:50 Blood Blood Culture - Preliminary NO GROWTH AFTER 24 HOURS Resulted 06/23/16 10:40 Blood Blood Culture - Preliminary NO GROWTH AFTER 24 HOURS Resulted 06/24/16 13:50 Sputum Gram Stain - Final Resulted 06/24/16 13:50 Sputum Sputum Culture - Preliminary NORMAL GHISLAINE PRESENT Resulted 06/23/16 17:00 Sputum Gram Stain - Final Resulted 06/23/16 17:00 Sputum Culture - Preliminary Fany Albicans Resulted HAILEE PATEL Jun 25, 2016 19:31
[2016-06-25] MEDS: Meropenem 500 MG in NS 110 ML IVPB SCH (20:52)
[2016-06-25] MEDS: Epogen (for non ESRD use) SUBQ SCH (21:13)
[2016-06-25] MEDS ORDERED: Tubing Blood Filter IV ONE (21:24)
[2016-06-25] MEDS ORDERED: NS 275ml ONE (21:24)
[2016-06-26] VITALS (24 sets, daily range): BP systolic 97–165; BP diastolic 47–84
[2016-06-26] MEDS: Sodium Citrate 30ml GT SCH ×2 (00:09→05:48)
[2016-06-26] MEDS: NovoLOG Insulin Flexpen SUBQ SCH ×5 (00:14→18:19)
[2016-06-26] MEDS: Morphine Sulfate 2mg/ml Inj IVP PRN (05:26)
[2016-06-26 05:37] LABS: BASOPHILS % (AUTO) 0.3 % (0.0-2.0); EOSINOPHILS % (AUTO) 2.1 % (0.0-3.0); LYMPHOCYTES % (AUTO) 8.7 % (20.0-45.0); MEAN CORPUSCULAR HEMOGLOBIN 29.1 PG (27.0-31.0); MEAN CORPUSCULAR HGB CONC 30.1 G/DL (32.0-36.0); MEAN CORPUSCULAR VOLUME 97 FL (80-99); MONOCYTES % (AUTO) 6.9 % (1.0-10.0); NEUTROPHILS % (AUTO) 81.9 % (45.0-75.0); PLATELET COUNT 260 K/UL (150-450); RED BLOOD COUNT 2.83 M/UL (4.70-6.10); RED CELL DISTRIBUTION WIDTH 16.7 % (11.6-14.8); WHITE BLOOD COUNT 11.6 K/UL (4.8-10.8)
[2016-06-26] MEDS: LORazepam Inj 2mg/ml 1ml IV PRN (06:01)
[2016-06-26 06:03] LABS: ALANINE AMINOTRANSFERASE 8 U/L (3-41); ALBUMIN/GLOBULIN RATIO 0.7 (1.0-2.7); ANION GAP 14 (5-15); ASPARTATE AMINO TRANSFERASE 14 U/L (5-40); CALCIUM 8.4 mg/dL (8.6-10.2); CARBON DIOXIDE 25 mEQ/L (20-30); CHLORIDE 113 mEQ/L (98-107); CREATININE 2.9 mg/dL (0.7-1.2); HEMOLYSIS 3; MAGNESIUM 1.8 mg/dL (1.7-2.5); PHOSPHORUS 2.5 mg/dL (2.5-4.8); POTASSIUM 4.3 mEQ/L (3.4-4.9); SODIUM 152 mEQ/L (135-145); TOTAL PROTEIN 5.1 g/dL (6.6-8.7)
[2016-06-26 06:06] LABS: CRP QUANT 27.5 mg/dL (< 0.5); URIC ACID 6.9 mg/dL (3.0-7.5)
[2016-06-26] MEDS: Meropenem 500 MG in NS 110 ML IVPB SCH ×2 (09:15→21:22)
[2016-06-26] MEDS: Lactobacillus-GG tablet GT SCH ×3 (09:16→18:03)
[2016-06-26] MEDS: Mycophenolate 250mg cap GT SCH ×2 (09:16→18:03)
[2016-06-26] MEDS: Nephrovite tab NG SCH (09:16)
[2016-06-26] MEDS: Pantoprazole Inj IVP SCH (09:16)
[2016-06-26] MEDS: Docusate 100mg tablet NG SCH ×3 (09:16→18:03)
[2016-06-26] MEDS: Dakin's 0.5% (Full Strength) 16oz TOPIC SCH (09:17)
--- NOTE | 2016-06-26 09:26 | Pulmonolgy Critical Care Note ---
Critical Care - Asmt/Plan Problems: (1) Respiratory failure requiring intubation (2) Acute encephalopathy (3) ATN (acute tubular necrosis) (4) Sepsis (5) Decubitus skin ulcer Assessment & Plan: on hip, left and right tuberosity of pelvis, sacral area and scrotum stage 2 Respiratory: CXR, ABG Cardiac: continue to monitor HR/BP Renal: F/U I&O, keep IV fluid Infectious Disease: check cultures, continue antibiotics, other - on Cubicine, meropenem Endocrine: monitor blood sugar, check TSH, continue sliding scale insulin Hematologic: monitor H/H Neurologic: PRN Ativan, PRN Morphine Affect: PRN ativan Prophylaxis: Heparin Disposition: keep in ICU Notes Reviewed: cardio, renal, ID Discussed with: nurses, consultants, rehabilitation case coordinatorsales 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 account 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 - Objective Last 24 Hour Vital Signs Date Time Temp Pulse Resp B/P Pulse Ox O2 Delivery O2 Flow Rate FiO2 06/26/16 08:00 99.5 98 16 104/55 97 Mechanical Ventilator 40 06/26/16 08:00 40 06/26/16 08:00 98 06/26/16 07:05 101 18 97 Mechanical Ventilator 40 06/26/16 07:00 100 17 40 06/26/16 07:00 100 17 96 Mechanical Ventilator 40 06/26/16 07:00 105 26 108/53 95 Mechanical Ventilator 40 06/26/16 06:02 101.0 06/26/16 06:00 109 26 151/65 95 Mechanical Ventilator 40 06/26/16 05:06 101 25 40 06/26/16 05:00 100 23 165/67 99 Mechanical Ventilator 40 06/26/16 04:00 101.0 96 20 165/67 98 Mechanical Ventilator 40 06/26/16 04:00 40 06/26/16 04:00 108 06/26/16 03:26 91 26 40 06/26/16 03:00 88 23 112/53 98 Mechanical Ventilator 40 06/26/16 02:00 91 17 113/53 96 Mechanical Ventilator 40 06/26/16 01:16 92 17 40 06/26/16 01:00 95 23 117/56 99 Mechanical Ventilator 40 06/26/16 00:00 40 06/26/16 00:00 95 06/26/16 00:00 102.1 93 17 122/55 97 Mechanical Ventilator 40 06/25/16 23:12 92 15 40 06/25/16 23:00 93 16 116/59 96 Mechanical Ventilator 40 06/25/16 22:00 96 26 118/56 99 Mechanical Ventilator 40 06/25/16 21:03 94 18 40 06/25/16 21:00 95 27 106/52 97 Mechanical Ventilator 40 06/25/16 20:00 40 06/25/16 20:00 95 06/25/16 20:00 98.8 95 28 104/87 96 Mechanical Ventilator 40 06/25/16 19:06 97 17 40 06/25/16 19:00 98 26 108/57 100 Mechanical Ventilator 40 06/25/16 18:00 99 23 124/60 98 Mechanical Ventilator 40 06/25/16 17:00 90 22 97/49 96 Mechanical Ventilator 40 06/25/16 16:57 89 23 40 06/25/16 16:15 102/56 06/25/16 16:00 99.3 90 17 102/56 96 Mechanical Ventilator 40 06/25/16 16:00 90 06/25/16 16:00 40 06/25/16 15:00 92 22 106/45 100 Mechanical Ventilator 40 06/25/16 15:00 90 15 40 06/25/16 14:00 100.3 96 20 108/47 100 Mechanical Ventilator 40 06/25/16 13:10 93 20 40 06/25/16 13:00 96 21 101/48 100 Mechanical Ventilator 50 06/25/16 12:00 98 06/25/16 12:00 40 06/25/16 12:00 101.9 98 22 106/64 100 Mechanical Ventilator 50 06/25/16 11:20 93 21 40 06/25/16 11:00 93 18 98/48 100 Mechanical Ventilator 50 06/25/16 10:00 95 18 102/52 100 Mechanical Ventilator 50 Heart: HR/BP stable Abdomen: soft, non-tender Extremities: no C/C/E Micro: Microbiology Date/Time Source Procedure Growth Status 06/23/16 10:50 Blood Blood Culture - Preliminary NO GROWTH AFTER 48 HOURS Resulted 06/23/16 10:40 Blood Blood Culture - Preliminary NO GROWTH AFTER 48 HOURS Resulted 06/24/16 13:50 Sputum Gram Stain - Final Complete 06/24/16 13:50 Sputum Culture - Final Fany Albicans Complete 06/23/16 17:00 Sputum Gram Stain - Final Complete 06/23/16 17:00 Sputum Culture - Final Fany Albicans Complete Accucheck: 162 Critical Care - Subjective ICU Day: 9 Intubation Day: 9 Interval Events: still febrile Condition: critical EKG Rhythm: Sinus Rhythm FI02: 40 Vent Support Breath Rate: 15 Vent Support Mode: AC Vent Tidal Volume: 600 Sputum Amount: Moderate PEEP: 5.0 PIP: 27 Tube Feeding Amount: 40 I&O: Intake and Output 06/25/16 06/26/16 19:00 07:00 Intake Total 1070 ml 945 ml Output Total 1055 ml 645 ml Balance 15 ml 300 ml Free Water 200 ml IV Total 260 ml 165 ml Tube Feeding 480 ml 480 ml Other 130 ml 300 ml Output Urine Total 1055 ml 645 ml CXR: ET in good position ET-Tube: 8.0 ET Position: 23 Labs: Laboratory Tests Test 06/26/16 04:00 White Blood Count 11.6 K/UL (4.8-10.8) H Red Blood Count 2.83 M/UL (4.70-6.10) L Hemoglobin 8.2 G/DL (14.2-18.0) L Hematocrit 27.3 % (42.0-52.0) L Mean Corpuscular Volume 97 FL (80-99) Mean Corpuscular Hemoglobin 29.1 PG (27.0-31.0) Mean Corpuscular Hemoglobin Concent 30.1 G/DL (32.0-36.0) L Red Cell Distribution Width 16.7 % (11.6-14.8) H Platelet Count 260 K/UL (150-450) Mean Platelet Volume 6.0 FL (6.5-10.1) L Neutrophils (%) (Auto) 81.9 % (45.0-75.0) H Lymphocytes (%) (Auto) 8.7 % (20.0-45.0) L Monocytes (%) (Auto) 6.9 % (1.0-10.0) Eosinophils (%) (Auto) 2.1 % (0.0-3.0) Basophils (%) (Auto) 0.3 % (0.0-2.0) Sodium Level 152 mEQ/L (135-145) H Potassium Level 4.3 mEQ/L (3.4-4.9) Chloride Level 113 mEQ/L (98-107) H Carbon Dioxide Level 25 mEQ/L (20-30) Anion Gap 14 (5-15) Blood Urea Nitrogen 63 mg/dL (7-23) H Creatinine 2.9 mg/dL (0.7-1.2) H Estimat Glomerular Filtration Rate mL/min (>60) Glucose Level 173 mg/dL (74-106) H Uric Acid 6.9 mg/dL (3.0-7.5) Calcium Level 8.4 mg/dL (8.6-10.2) L Phosphorus Level 2.5 mg/dL (2.5-4.8) Magnesium Level 1.8 mg/dL (1.7-2.5) Total Bilirubin < 0.2 mg/dL (0.0-1.2) Gamma Glutamyl Transpeptidase 16 U/L (8-61) Aspartate Amino Transf (AST/SGOT) 14 U/L (5-40) Alanine Aminotransferase (ALT/SGPT) 8 U/L (3-41) Alkaline Phosphatase 89 U/L (40-129) C-Reactive Protein, Quantitative 27.5 mg/dL (< 0.5) H Pro-B-Type Natriuretic Peptide 9345 pg/mL (0-450) H Total Protein 5.1 g/dL (6.6-8.7) L Albumin 2.2 g/dL (3.5-5.2) L Globulin 2.9 g/dL Albumin/Globulin Ratio 0.7 (1.0-2.7) L AMADO SCHULER Jun 26, 2016 09:26
[2016-06-26 09:33] LABS: ABG ALLEN TEST POSITIVE; ABG BASE EXCESS -0.3; ABG PCO2 37.8 mmHg (35.0-45.0)
--- NOTE | 2016-06-26 10:04 | General Progress Note ---
Assessment/Plan Status: unchanged Status Narrative continues to have high inflammatory response- CRP elevated Assessment/Plan status: Acute Renal Failure- Cr stable Acute respiratory failure- septic shock , metabolic acidosis Superimposed on CRI due to DM / HTN PVD s/p amputation- Severe Anemia s/p Heart transplant sacral decub plan: slow Hydrate- free water, D5 watch CHF Sxs transfused- wound care- monitor renal parameters- optimize cardiac and pulm status- wean as possible. avoid nephrotoxics per ID and cardiology discussed with RN Subjective ROS Limited/Unobtainable: Yes Allergies: Coded Allergies: ADHESIVE TAPE (Verified Allergy, Unknown, Rash, 05/27/16) PLASTIC TAPE-COPIED FROM UNCODED SECTION PENICILLINS (Verified Allergy, Unknown, 06/20/16) PROCAINE (Verified Allergy, Unknown, Rash, 08/19/14) COPIED FRON UNCODED Objective Last 24 Hour Vital Signs Date Time Temp Pulse Resp B/P Pulse Ox O2 Delivery O2 Flow Rate FiO2 06/26/16 08:00 99.5 98 16 104/55 97 Mechanical Ventilator 40 06/26/16 08:00 40 06/26/16 08:00 98 06/26/16 07:05 101 18 97 Mechanical Ventilator 40 06/26/16 07:00 100 17 40 06/26/16 07:00 100 17 96 Mechanical Ventilator 40 06/26/16 07:00 105 26 108/53 95 Mechanical Ventilator 40 06/26/16 06:02 101.0 06/26/16 06:00 109 26 151/65 95 Mechanical Ventilator 40 06/26/16 05:06 101 25 40 06/26/16 05:00 100 23 165/67 99 Mechanical Ventilator 40 06/26/16 04:00 101.0 96 20 165/67 98 Mechanical Ventilator 40 06/26/16 04:00 40 06/26/16 04:00 108 06/26/16 03:26 91 26 40 06/26/16 03:00 88 23 112/53 98 Mechanical Ventilator 40 06/26/16 02:00 91 17 113/53 96 Mechanical Ventilator 40 06/26/16 01:16 92 17 40 06/26/16 01:00 95 23 117/56 99 Mechanical Ventilator 40 06/26/16 00:00 40 06/26/16 00:00 95 06/26/16 00:00 102.1 93 17 122/55 97 Mechanical Ventilator 40 06/25/16 23:12 92 15 40 06/25/16 23:00 93 16 116/59 96 Mechanical Ventilator 40 06/25/16 22:00 96 26 118/56 99 Mechanical Ventilator 40 06/25/16 21:03 94 18 40 06/25/16 21:00 95 27 106/52 97 Mechanical Ventilator 40 06/25/16 20:00 40 06/25/16 20:00 95 06/25/16 20:00 98.8 95 28 104/87 96 Mechanical Ventilator 40 06/25/16 19:06 97 17 40 06/25/16 19:00 98 26 108/57 100 Mechanical Ventilator 40 06/25/16 18:00 99 23 124/60 98 Mechanical Ventilator 40 06/25/16 17:00 90 22 97/49 96 Mechanical Ventilator 40 06/25/16 16:57 89 23 40 06/25/16 16:15 102/56 06/25/16 16:00 99.3 90 17 102/56 96 Mechanical Ventilator 40 06/25/16 16:00 90 06/25/16 16:00 40 06/25/16 15:00 92 22 106/45 100 Mechanical Ventilator 40 06/25/16 15:00 90 15 40 06/25/16 14:00 100.3 96 20 108/47 100 Mechanical Ventilator 40 06/25/16 13:10 93 20 40 06/25/16 13:00 96 21 101/48 100 Mechanical Ventilator 50 06/25/16 12:00 98 06/25/16 12:00 40 06/25/16 12:00 101.9 98 22 106/64 100 Mechanical Ventilator 50 06/25/16 11:20 93 21 40 06/25/16 11:00 93 18 98/48 100 Mechanical Ventilator 50 Intake and Output 06/25/16 06/26/16 19:00 07:00 Intake Total 1070 ml 945 ml Output Total 1055 ml 645 ml Balance 15 ml 300 ml Free Water 200 ml IV Total 260 ml 165 ml Tube Feeding 480 ml 480 ml Other 130 ml 300 ml Output Urine Total 1055 ml 645 ml Laboratory Tests 06/26/16 04:00: White Blood Count 11.6H, Red Blood Count 2.83L, Hemoglobin 8.2L, Hematocrit 27.3L, Mean Corpuscular Volume 97, Mean Corpuscular Hemoglobin 29.1, Mean Corpuscular Hemoglobin Concent 30.1L, Red Cell Distribution Width 16.7H, Platelet Count 260, Mean Platelet Volume 6.0L, Neutrophils (%) (Auto) 81.9H, Lymphocytes (%) (Auto) 8.7L, Monocytes (%) (Auto) 6.9, Eosinophils (%) (Auto) 2.1, Basophils (%) (Auto) 0.3, Sodium Level 152H, Potassium Level 4.3, Chloride Level 113H, Carbon Dioxide Level 25, Anion Gap 14, Blood Urea Nitrogen 63H, Creatinine 2.9H, Estimat Glomerular Filtration Rate , Glucose Level 173H, Uric Acid 6.9, Calcium Level 8.4L, Phosphorus Level 2.5, Magnesium Level 1.8, Total Bilirubin < 0.2, Gamma Glutamyl Transpeptidase 16, Aspartate Amino Transf (AST/ SGOT) 14, Alanine Aminotransferase (ALT/SGPT) 8, Alkaline Phosphatase 89, C- Reactive Protein, Quantitative 27.5H, Pro-B-Type Natriuretic Peptide 9345H, Total Protein 5.1L, Albumin 2.2L, Globulin 2.9, Albumin/Globulin Ratio 0.7L 06/26/16 09:22: Arterial Blood pH 7.421, Arterial Blood Partial Pressure CO2 37.8, Arterial Blood Partial Pressure O2 102.6H, Arterial Blood HCO3 24.0, Arterial Blood Oxygen Saturation 97.5, Arterial Blood Base Excess -0.3, Adama Test Positive Height (Feet): 5 Height (Inches): 8.00 Weight (Pounds): 193 General Appearance: no apparent distress, lethargic Cardiovascular: tachycardia Respiratory/Chest: decreased breath sounds Abdomen: distended Objective no other changes in PE BRIJESH CALDERON Jun 26, 2016 10:03
[2016-06-26] MEDS: Micafungin 100 MG in NS 110 ML IVPB SCH (12:22)
--- NOTE | 2016-06-26 12:40 | Diagnostic Imaging Report ---
APPROVED REPORT CPT Code: 44993 Present Symptoms Comments: Left arm swelling Hx of PICC line (Left arm) 2D Evaluation LEFT UPPER EXTREMITY: Imaging reveals partially occlusive acute thrombus in the subclavian, axillary, and proximal brachial veins (thrombosed PICC line) at upper arm level. Imaging also reveals patency of the internal jugular, and distal brachial veins.The cephalic vein is also thrombosed. The basilic vein is within normal limits. RIGHT UPPER EXTREMITY: Imaging reveals patency of the internal jugular, subclavian, axillary and brachial veins. The cephalic and basilic veins are also within normal limits. The Doppler indicates normal spontaneous flow within these venous segments. LYUBOV Lopez was notified of abnormal results at 1306
--- NOTE | 2016-06-26 16:12 | Infectious Diseases Prog Note ---
Assessment/Plan Problems: (1) Sepsis Assessment & Plan: with leukocytosis and hypotension, still spiking fever on daptomycin , levofloxacin , and meropenem , will add micafungin for fungal coverage, and quiroga culture him again , repeated blood culture is negative , and sputum culture grew candidia albicans only which is most likely colonization and not real. I have discussed his plan of care with his son and and again suggested to transfer him to [facility] as soon as possible for higher level of care. 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 continue local wound care , and off loading. (4) Hyperkalemia, diminished renal excretion Assessment & Plan: improving, due to CKD, on bicarbonate and Kayexalate, renal is following (5) Anemia Assessment & Plan: S/P blood transfusion, monitor H&H, need to rule out GI source, recommend GI consult. (6) PVD (peripheral vascular disease) Assessment & Plan: S/P B/L AKA. (7) CKD (chronic kidney disease) Assessment & Plan: avoid nephrotoxic meds, monitor UOP, and renal function, renal is following (8) Heart transplant status Assessment & Plan: recommend to communicate with his heart transplant team at [facility] for further recommendation, and possible transfer to [facility] for higher level of care, continue transplant meds , and adjust as per his GFR. cardiology is following Subjective ROS Limited/Unobtainable: Yes Allergies: Coded Allergies: ADHESIVE TAPE (Verified Allergy, Unknown, Rash, 05/27/16) PLASTIC TAPE-COPIED FROM UNCODED SECTION PENICILLINS (Verified Allergy, Unknown, 06/20/16) PROCAINE (Verified Allergy, Unknown, Rash, 08/19/14) COPIED FRON UNCODED Subjective he was intubated on mechanical ventilation but awake and respond well to verbal commands, had fever since yesterday, no diarrhea, still have secretions. Objective Vital Signs Last 24 Hour Vital Signs Date Time Temp Pulse Resp B/P Pulse Ox O2 Delivery O2 Flow Rate FiO2 06/26/16 15:00 86 27 110/55 96 Mechanical Ventilator 40 06/26/16 14:00 88 26 106/84 96 Mechanical Ventilator 40 06/26/16 13:00 99.3 88 15 100/56 95 Mechanical Ventilator 40 06/26/16 13:00 88 17 40 06/26/16 12:56 99.3 06/26/16 12:00 40 06/26/16 12:00 94 06/26/16 12:00 101.1 90 16 99/52 95 Mechanical Ventilator 40 06/26/16 11:05 97 18 97 Mechanical Ventilator 40 06/26/16 11:03 98 18 118/61 96 Mechanical Ventilator 40 06/26/16 11:00 94 16 40 06/26/16 11:00 95 16 97 Mechanical Ventilator 40 06/26/16 10:00 92 17 106/55 96 Mechanical Ventilator 40 06/26/16 09:30 93 16 40 06/26/16 09:00 101 17 139/84 95 Mechanical Ventilator 40 06/26/16 08:00 99.5 98 16 104/55 97 Mechanical Ventilator 40 06/26/16 08:00 40 06/26/16 08:00 98 06/26/16 07:05 101 18 97 Mechanical Ventilator 40 06/26/16 07:00 100 17 40 06/26/16 07:00 100 17 96 Mechanical Ventilator 40 06/26/16 07:00 105 26 108/53 95 Mechanical Ventilator 40 06/26/16 06:00 109 26 151/65 95 Mechanical Ventilator 40 06/26/16 05:06 101 25 40 06/26/16 05:00 100 23 165/67 99 Mechanical Ventilator 40 06/26/16 04:00 101.0 96 20 165/67 98 Mechanical Ventilator 40 06/26/16 04:00 40 06/26/16 04:00 108 06/26/16 03:26 91 26 40 06/26/16 03:00 88 23 112/53 98 Mechanical Ventilator 40 06/26/16 02:00 91 17 113/53 96 Mechanical Ventilator 40 06/26/16 01:16 92 17 40 06/26/16 01:00 95 23 117/56 99 Mechanical Ventilator 40 06/26/16 00:00 40 06/26/16 00:00 95 06/26/16 00:00 102.1 93 17 122/55 97 Mechanical Ventilator 40 06/25/16 23:12 92 15 40 06/25/16 23:00 93 16 116/59 96 Mechanical Ventilator 40 06/25/16 22:00 96 26 118/56 99 Mechanical Ventilator 40 06/25/16 21:03 94 18 40 06/25/16 21:00 95 27 106/52 97 Mechanical Ventilator 40 06/25/16 20:00 40 06/25/16 20:00 95 06/25/16 20:00 98.8 95 28 104/87 96 Mechanical Ventilator 40 06/25/16 19:06 97 17 40 06/25/16 19:00 98 26 108/57 100 Mechanical Ventilator 40 06/25/16 18:00 99 23 124/60 98 Mechanical Ventilator 40 06/25/16 17:00 90 22 97/49 96 Mechanical Ventilator 40 06/25/16 16:57 89 23 40 06/25/16 16:15 102/56 Height (Feet): 5 Height (Inches): 8.00 Weight (Pounds): 193 General Appearance: WD/WN, no acute distress HEENT: normocephalic, atraumatic, anicteric, mucous membranes moist Respiratory/Chest: chest wall non-tender, normal breath sounds, no respiratory distress, no accessory muscle use, decreased breath sounds, crackles/rales Cardiovascular: normal peripheral pulses, normal rate, regular rhythm, no gallop/murmur, no JVD Abdomen: normal bowel sounds, soft, non tender, no organomegaly, non distended , no mass Extremities: no cyanosis Skin: no rash, no lesions, ulcers, other - larg sacral wound stage IV, with granulation and left ischial wound Microbiology Date/Time Source Procedure Growth Status 06/24/16 13:50 Sputum Gram Stain - Final Complete 06/24/16 13:50 Sputum Culture - Final Fany Albicans Complete 06/23/16 17:00 Sputum Gram Stain - Final Complete 06/23/16 17:00 Sputum Culture - Final Fany Albicans Complete Laboratory Tests Test 06/26/16 04:00 06/26/16 09:22 White Blood Count 11.6 K/UL (4.8-10.8) H Red Blood Count 2.83 M/UL (4.70-6.10) L Hemoglobin 8.2 G/DL (14.2-18.0) L Hematocrit 27.3 % (42.0-52.0) L Mean Corpuscular Volume 97 FL (80-99) Mean Corpuscular Hemoglobin 29.1 PG (27.0-31.0) Mean Corpuscular Hemoglobin Concent 30.1 G/DL (32.0-36.0) L Red Cell Distribution Width 16.7 % (11.6-14.8) H Platelet Count 260 K/UL (150-450) Mean Platelet Volume 6.0 FL (6.5-10.1) L Neutrophils (%) (Auto) 81.9 % (45.0-75.0) H Lymphocytes (%) (Auto) 8.7 % (20.0-45.0) L Monocytes (%) (Auto) 6.9 % (1.0-10.0) Eosinophils (%) (Auto) 2.1 % (0.0-3.0) Basophils (%) (Auto) 0.3 % (0.0-2.0) Sodium Level 152 mEQ/L (135-145) H Potassium Level 4.3 mEQ/L (3.4-4.9) Chloride Level 113 mEQ/L (98-107) H Carbon Dioxide Level 25 mEQ/L (20-30) Anion Gap 14 (5-15) Blood Urea Nitrogen 63 mg/dL (7-23) H Creatinine 2.9 mg/dL (0.7-1.2) H Estimat Glomerular Filtration Rate mL/min (>60) Glucose Level 173 mg/dL (74-106) H Uric Acid 6.9 mg/dL (3.0-7.5) Calcium Level 8.4 mg/dL (8.6-10.2) L Phosphorus Level 2.5 mg/dL (2.5-4.8) Magnesium Level 1.8 mg/dL (1.7-2.5) Total Bilirubin < 0.2 mg/dL (0.0-1.2) Gamma Glutamyl Transpeptidase 16 U/L (8-61) Aspartate Amino Transf (AST/SGOT) 14 U/L (5-40) Alanine Aminotransferase (ALT/SGPT) 8 U/L (3-41) Alkaline Phosphatase 89 U/L (40-129) C-Reactive Protein, Quantitative 27.5 mg/dL (< 0.5) H Pro-B-Type Natriuretic Peptide 9345 pg/mL (0-450) H Total Protein 5.1 g/dL (6.6-8.7) L Albumin 2.2 g/dL (3.5-5.2) L Globulin 2.9 g/dL Albumin/Globulin Ratio 0.7 (1.0-2.7) L Arterial Blood pH 7.421 (7.350-7.450) Arterial Blood Partial Pressure CO2 37.8 mmHg (35.0-45.0) Arterial Blood Partial Pressure O2 102.6 mmHg (75.0-100.0) H Arterial Blood HCO3 24.0 mmol/L (22.0-26.0) Arterial Blood Oxygen Saturation 97.5 % (92.0-98.0) Arterial Blood Base Excess -0.3 Adama Test Positive Current Medications Medications (Trade) Dose Ordered Sig/Koffi Route PRN Reason Start Time Stop Time Status Last Admin Dose Admin Acetaminophen (Tylenol) 650 mg Q4H PRN ORAL fever 06/23/16 10:30 07/23/16 10:29 06/26/16 11:57 Acetaminophen/ Hydrocodone Bitart (Laurel 5/325) 1 tab Q4H PRN GT Moderate Pain (Pain Scale 4-6) 06/25/16 10:23 06/30/16 08:59 Clopidogrel Bisulfate (Plavix) 75 mg DAILY GT 06/25/16 10:22 07/23/16 08:59 06/26/16 09:16 Collagenase (Santyl) 1 applic DAILY TOPIC 06/23/16 09:00 07/23/16 08:59 06/26/16 09:17 Daptomycin 500 mg/ Sodium Chloride 55 ml @ 110 mls/hr Q48H IV 06/25/16 19:00 07/02/16 18:59 06/25/16 18:59 Dextrose (Dextrose 50%) STAT PRN IV Hypoglycemia 06/23/16 22:30 07/23/16 22:29 Docusate Sodium (Colace) 100 mg TID NG 06/24/16 09:00 07/24/16 08:59 06/26/16 13:02 Dopamine HCl/ Dextrose (DOPamine 400mg/ 250ml) 250 ml @ 0 mls/hr Q24H IV 06/24/16 16:15 07/24/16 16:14 06/24/16 17:56 Epoetin Mars (Procrit (for non ESRD use)) 7,000 units TUE-TUE-TUE SUBQ 06/23/16 21:00 07/23/16 20:59 06/25/16 21:13 Heparin Sodium/ Sodium Chloride 2000 unit 2,000 unit ONCE PRN INJ PICC PLACEMENT 06/25/16 13:15 06/28/16 23:59 Insulin Aspart (NovoLOG) EVERY 6 HOURS SUBQ 06/23/16 12:00 07/23/16 11:59 06/26/16 12:11 Lactobacillus Acidophilus (Culturelle) 1 tab THREE TIMES A DAY GT 06/25/16 10:23 07/23/16 08:59 06/26/16 13:02 Levofloxacin 150 ml @ 150 mls/hr Q48H IVPB 06/25/16 18:00 07/02/16 17:59 06/25/16 17:51 Lidocaine HCl (Xylocaine 1% 30ml) 30 ml ONCE PRN INJ PICC PLACEMENT 06/25/16 13:15 06/28/16 23:59 Lorazepam (Ativan 2mg/ml 1ml) 0.5 mg Q4H PRN IV For Anxiety 06/23/16 10:30 06/30/16 10:29 06/26/16 06:01 Meropenem/Sodium Chloride (Merrem/Sodium Chloride) 110 ml @ 220 mls/hr Q12HR IVPB 06/25/16 21:00 06/30/16 20:59 06/26/16 09:15 Micafungin Sodium/ Sodium Chloride (Mycamine/Sodium Chloride) 110 ml @ 110 mls/hr Q24H IVPB 06/26/16 11:00 07/03/16 10:59 06/26/16 12:22 Morphine Sulfate (Morphine Sulfate) 1 mg Q4H PRN IVP Severe Pain (Pain Scale 7-10) 06/23/16 11:00 06/30/16 10:59 06/26/16 05:26 Mycophenolate Mofetil 500 mg 500 mg TWICE A DAY GT 06/25/16 10:24 07/23/16 08:59 06/26/16 09:16 Ondansetron HCl (Zofran) 4 mg Q6H PRN IVP Nausea & Vomiting 06/23/16 10:30 07/23/16 10:29 06/24/16 09:50 Pantoprazole (Protonix) 40 mg DAILY IVP 06/23/16 09:00 07/23/16 08:59 06/26/16 09:16 Polyethylene Glycol (Miralax) 17 gm DAILY PRN GT Constipation 06/25/16 10:23 07/23/16 08:59 Sodium Hypochlorite (Dakin's Full Strength) 1 applic DAILY TOPIC 06/23/16 09:00 07/23/16 08:59 06/26/16 09:17 Sodium Bicarbonate (Sodium Bicarbonate) 50 ml ONCE PRN IV PICC PLACEMENT 06/25/16 13:15 06/28/16 23:59 Tacrolimus (Prograf) 1 mg QHS ORAL 06/26/16 21:00 07/26/16 20:59 Tacrolimus 1 mg 1 mg DAILY@0800 ORAL 06/24/16 09:30 07/24/16 09:29 06/26/16 08:56 Zolpidem Tartrate (Ambien) 5 mg HSPRN PRN GT Insomnia 06/25/16 10:24 07/23/16 22:29 Jose Mott M.D. Jun 26, 2016 16:12
[2016-06-26] MEDS: DOPamine 400mg/250ml 250 ML IV SCH (16:15)
--- NOTE | 2016-06-26 16:32 | Cardiology Progress Note ---
Assessment/Plan Assessment/Plan acute respiratory ]failure, presumably due to pneumonia cardiac transplanjt renal insufficiency anemia montior Hb level cardiac status unchanged Subjective Subjective the patient is intubated, opens his eyes, does not follow instructions Objective Last 24 Hour Vital Signs Date Time Temp Pulse Resp B/P Pulse Ox O2 Delivery O2 Flow Rate FiO2 06/26/16 16:15 97/54 06/26/16 16:00 40 06/26/16 16:00 99.1 80 16 97/54 96 Mechanical Ventilator 40 06/26/16 16:00 85 06/26/16 15:05 86 16 97 Mechanical Ventilator 40 06/26/16 15:00 81 15 96 Mechanical Ventilator 40 06/26/16 15:00 81 15 40 06/26/16 15:00 86 27 110/55 96 Mechanical Ventilator 40 06/26/16 14:00 88 26 106/84 96 Mechanical Ventilator 40 06/26/16 13:00 99.3 88 15 100/56 95 Mechanical Ventilator 40 06/26/16 13:00 88 17 40 06/26/16 12:56 99.3 06/26/16 12:00 40 06/26/16 12:00 94 06/26/16 12:00 101.1 90 16 99/52 95 Mechanical Ventilator 40 06/26/16 11:05 97 18 97 Mechanical Ventilator 40 06/26/16 11:03 98 18 118/61 96 Mechanical Ventilator 40 06/26/16 11:00 94 16 40 06/26/16 11:00 95 16 97 Mechanical Ventilator 40 06/26/16 10:00 92 17 106/55 96 Mechanical Ventilator 40 06/26/16 09:30 93 16 40 06/26/16 09:00 101 17 139/84 95 Mechanical Ventilator 40 06/26/16 08:00 99.5 98 16 104/55 97 Mechanical Ventilator 40 06/26/16 08:00 40 06/26/16 08:00 98 06/26/16 07:05 101 18 97 Mechanical Ventilator 40 06/26/16 07:00 100 17 40 06/26/16 07:00 100 17 96 Mechanical Ventilator 40 06/26/16 07:00 105 26 108/53 95 Mechanical Ventilator 40 06/26/16 06:00 109 26 151/65 95 Mechanical Ventilator 40 06/26/16 05:06 101 25 40 06/26/16 05:00 100 23 165/67 99 Mechanical Ventilator 40 06/26/16 04:00 101.0 96 20 165/67 98 Mechanical Ventilator 40 06/26/16 04:00 40 06/26/16 04:00 108 06/26/16 03:26 91 26 40 06/26/16 03:00 88 23 112/53 98 Mechanical Ventilator 40 06/26/16 02:00 91 17 113/53 96 Mechanical Ventilator 40 06/26/16 01:16 92 17 40 06/26/16 01:00 95 23 117/56 99 Mechanical Ventilator 40 06/26/16 00:00 40 06/26/16 00:00 95 06/26/16 00:00 102.1 93 17 122/55 97 Mechanical Ventilator 40 06/25/16 23:12 92 15 40 06/25/16 23:00 93 16 116/59 96 Mechanical Ventilator 40 06/25/16 22:00 96 26 118/56 99 Mechanical Ventilator 40 06/25/16 21:03 94 18 40 06/25/16 21:00 95 27 106/52 97 Mechanical Ventilator 40 06/25/16 20:00 40 06/25/16 20:00 95 06/25/16 20:00 98.8 95 28 104/87 96 Mechanical Ventilator 40 06/25/16 19:06 97 17 40 06/25/16 19:00 98 26 108/57 100 Mechanical Ventilator 40 06/25/16 18:00 99 23 124/60 98 Mechanical Ventilator 40 06/25/16 17:00 90 22 97/49 96 Mechanical Ventilator 40 06/25/16 16:57 89 23 40 General Appearance: alert, lethargic, on vent EENT: PERRL/EOMI Neck: other - difficult to assess venous pressure Rhythm: NSR Cardiovascular: tachycardia Respiratory/Chest: crackles/rales Abdomen: distended Extremities: other - bilateral amputee Intake and Output 06/25/16 06/26/16 19:00 07:00 Intake Total 1070 ml 945 ml Output Total 1055 ml 645 ml Balance 15 ml 300 ml Free Water 200 ml IV Total 260 ml 165 ml Tube Feeding 480 ml 480 ml Other 130 ml 300 ml Output Urine Total 1055 ml 645 ml Laboratory Tests Test 06/26/16 04:00 06/26/16 09:22 White Blood Count 11.6 K/UL (4.8-10.8) H Red Blood Count 2.83 M/UL (4.70-6.10) L Hemoglobin 8.2 G/DL (14.2-18.0) L Hematocrit 27.3 % (42.0-52.0) L Mean Corpuscular Volume 97 FL (80-99) Mean Corpuscular Hemoglobin 29.1 PG (27.0-31.0) Mean Corpuscular Hemoglobin Concent 30.1 G/DL (32.0-36.0) L Red Cell Distribution Width 16.7 % (11.6-14.8) H Platelet Count 260 K/UL (150-450) Mean Platelet Volume 6.0 FL (6.5-10.1) L Neutrophils (%) (Auto) 81.9 % (45.0-75.0) H Lymphocytes (%) (Auto) 8.7 % (20.0-45.0) L Monocytes (%) (Auto) 6.9 % (1.0-10.0) Eosinophils (%) (Auto) 2.1 % (0.0-3.0) Basophils (%) (Auto) 0.3 % (0.0-2.0) Sodium Level 152 mEQ/L (135-145) H Potassium Level 4.3 mEQ/L (3.4-4.9) Chloride Level 113 mEQ/L (98-107) H Carbon Dioxide Level 25 mEQ/L (20-30) Anion Gap 14 (5-15) Blood Urea Nitrogen 63 mg/dL (7-23) H Creatinine 2.9 mg/dL (0.7-1.2) H Estimat Glomerular Filtration Rate mL/min (>60) Glucose Level 173 mg/dL (74-106) H Uric Acid 6.9 mg/dL (3.0-7.5) Calcium Level 8.4 mg/dL (8.6-10.2) L Phosphorus Level 2.5 mg/dL (2.5-4.8) Magnesium Level 1.8 mg/dL (1.7-2.5) Total Bilirubin < 0.2 mg/dL (0.0-1.2) Gamma Glutamyl Transpeptidase 16 U/L (8-61) Aspartate Amino Transf (AST/SGOT) 14 U/L (5-40) Alanine Aminotransferase (ALT/SGPT) 8 U/L (3-41) Alkaline Phosphatase 89 U/L (40-129) C-Reactive Protein, Quantitative 27.5 mg/dL (< 0.5) H Pro-B-Type Natriuretic Peptide 9345 pg/mL (0-450) H Total Protein 5.1 g/dL (6.6-8.7) L Albumin 2.2 g/dL (3.5-5.2) L Globulin 2.9 g/dL Albumin/Globulin Ratio 0.7 (1.0-2.7) L Arterial Blood pH 7.421 (7.350-7.450) Arterial Blood Partial Pressure CO2 37.8 mmHg (35.0-45.0) Arterial Blood Partial Pressure O2 102.6 mmHg (75.0-100.0) H Arterial Blood HCO3 24.0 mmol/L (22.0-26.0) Arterial Blood Oxygen Saturation 97.5 % (92.0-98.0) Arterial Blood Base Excess -0.3 Adama Test Positive Microbiology Date/Time Source Procedure Growth Status 06/24/16 13:50 Sputum Gram Stain - Final Complete 06/24/16 13:50 Sputum Culture - Final Fany Albicans Complete 06/23/16 17:00 Sputum Gram Stain - Final Complete 06/23/16 17:00 Sputum Culture - Final Fany Albicans Complete ERIN BERRY Jun 26, 2016 16:32
[2016-06-27] VITALS (24 sets, daily range): BP systolic 85–137; BP diastolic 40–86
[2016-06-27] MEDS: NovoLOG Insulin Flexpen SUBQ SCH ×5 (00:09→23:57)
[2016-06-27] MEDS: LORazepam Inj 2mg/ml 1ml IV PRN ×2 (01:30→17:28)
[2016-06-27 05:16] LABS: MEAN CORPUSCULAR HGB CONC 29.8 G/DL (32.0-36.0); MEAN CORPUSCULAR VOLUME 97 FL (80-99); MEAN PLATELET VOLUME 6.2 FL (6.5-10.1); PLATELET COUNT 252 K/UL (150-450); RED BLOOD COUNT 2.71 M/UL (4.70-6.10); RED CELL DISTRIBUTION WIDTH 16.5 % (11.6-14.8); WHITE BLOOD COUNT 12.2 K/UL (4.8-10.8)
[2016-06-27 06:35] LABS: ALANINE AMINOTRANSFERASE 12 U/L (3-41); ALBUMIN/GLOBULIN RATIO 0.6 (1.0-2.7); ANION GAP 15 (5-15); ASPARTATE AMINO TRANSFERASE 24 U/L (5-40); CALCIUM 8.3 mg/dL (8.6-10.2); CARBON DIOXIDE 25 mEQ/L (20-30); CHLORIDE 109 mEQ/L (98-107); CREATININE 3.1 mg/dL (0.7-1.2); HEMOLYSIS 10; MAGNESIUM 1.7 mg/dL (1.7-2.5); PHOSPHORUS 3.2 mg/dL (2.5-4.8); POTASSIUM 4.6 mEQ/L (3.4-4.9); SODIUM 149 mEQ/L (135-145); TOTAL PROTEIN 4.9 g/dL (6.6-8.7)
[2016-06-27 06:42] LABS: CRP QUANT 28.5 mg/dL (< 0.5); URIC ACID 6.9 mg/dL (3.0-7.5)
[2016-06-27] MEDS: Meropenem 500 MG in NS 110 ML IVPB SCH ×2 (08:01→21:10)
[2016-06-27] MEDS: Pantoprazole Inj IVP SCH (08:01)
[2016-06-27] MEDS: Lactobacillus-GG tablet GT SCH ×3 (08:01→18:23)
[2016-06-27] MEDS: Mycophenolate 250mg cap GT SCH ×2 (08:01→17:36)
[2016-06-27] MEDS: Docusate 100mg tablet NG SCH ×3 (08:01→17:35)
[2016-06-27] MEDS: Dakin's 0.5% (Full Strength) 16oz TOPIC SCH (08:02)
[2016-06-27 08:08] LABS: ABG ALLEN TEST POSITIVE; ABG BASE EXCESS 0.5; ABG PCO2 35.4 mmHg (35.0-45.0)
[2016-06-27 09:41] LABS: ANISOCYTOSIS 1+; BAND NEUTROPHILS % (MANUAL) 1 % (0-8); BASOPHILS % (MANUAL) 0 % (0-2); EOSINOPHILS % (MANUAL) 3 % (0-3); HYPOCHROMASIA 1+; LYMPHOCYTES % (MANUAL) 6 % (20-45); MACROCYTES 1+; NEUTROPHILS % (MANUAL) 88 % (45-75); PLATELET ESTIMATE ADEQUATE; PLATELET MORPHOLOGY NORMAL; TOTAL CELLS COUNTED 100
[2016-06-27] MEDS: Micafungin 100 MG in NS 110 ML IVPB SCH (10:57)
--- NOTE | 2016-06-27 11:18 | Pulmonolgy Critical Care Note ---
Critical Care - Asmt/Plan Problems: (1) Respiratory failure requiring intubation (2) Acute encephalopathy (3) ATN (acute tubular necrosis) (4) Sepsis (5) Decubitus skin ulcer Assessment & Plan: on hip, left and right tuberosity of pelvis, sacral area and scrotum stage 2 Respiratory: monitor respiratory rate, other - start weaning today, secretions are much less. Cardiac: continue pressors, continue to monitor HR/BP Renal: F/U I&O, keep IV fluid Infectious Disease: check cultures Gastrointestinal: continue feedings/current rate, hold feedings Endocrine: monitor blood sugar Hematologic: monitor H/H Neurologic: PRN Ativan, PRN Morphine Affect: PRN ativan Prophylaxis: Protonix Notes Reviewed: cardio, 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, consultants, assistant case managermanager program management - Objective Last 24 Hour Vital Signs Date Time Temp Pulse Resp B/P Pulse Ox O2 Delivery O2 Flow Rate FiO2 06/27/16 10:00 91 16 113/47 96 Mechanical Ventilator 40 06/27/16 09:00 93 16 100/40 97 Mechanical Ventilator 40 06/27/16 09:00 92 15 40 06/27/16 08:00 89 06/27/16 08:00 40 06/27/16 08:00 89 16 102/52 100 Mechanical Ventilator 40 06/27/16 07:00 98.5 89 16 107/55 100 Mechanical Ventilator 40 06/27/16 06:40 81 15 40 06/27/16 06:00 88 15 85/43 100 Mechanical Ventilator 40 06/27/16 05:00 92 15 106/56 100 Mechanical Ventilator 40 06/27/16 04:59 91 15 40 06/27/16 04:00 40 06/27/16 04:00 92 06/27/16 04:00 98.9 92 16 102/51 100 Mechanical Ventilator 40 06/27/16 03:05 104 20 100 Mechanical Ventilator 40 06/27/16 03:00 103 18 40 06/27/16 03:00 100 21 126/64 100 Mechanical Ventilator 40 06/27/16 03:00 103 18 100 Mechanical Ventilator 40 06/27/16 02:00 95 17 101/56 98 Mechanical Ventilator 40 06/27/16 01:00 128 23 131/76 98 Mechanical Ventilator 40 06/27/16 00:45 134 21 40 06/27/16 00:00 40 06/27/16 00:00 99.2 94 19 137/55 98 Mechanical Ventilator 40 06/27/16 00:00 94 06/26/16 23:26 94 23 99 Mechanical Ventilator 40 06/26/16 23:21 91 23 40 06/26/16 23:21 91 23 99 Mechanical Ventilator 40 06/26/16 23:00 88 17 101/50 99 Mechanical Ventilator 40 06/26/16 22:00 76 16 98/47 95 Mechanical Ventilator 40 06/26/16 21:18 88 18 40 06/26/16 21:11 98.9 06/26/16 21:00 98.9 87 16 98/47 96 Mechanical Ventilator 40 06/26/16 20:00 100.6 91 21 115/53 96 Mechanical Ventilator 40 06/26/16 20:00 40 06/26/16 20:00 91 06/26/16 19:20 94 21 40 06/26/16 19:20 95 16 96 Mechanical Ventilator 40 06/26/16 19:20 94 21 97 Mechanical Ventilator 40 06/26/16 19:00 92 24 107/49 95 Mechanical Ventilator 40 06/26/16 18:00 88 20 109/48 99 Mechanical Ventilator 40 06/26/16 17:05 90 16 40 06/26/16 17:00 90 16 118/52 96 Mechanical Ventilator 40 06/26/16 16:15 97/54 06/26/16 16:00 40 06/26/16 16:00 99.1 80 16 97/54 96 Mechanical Ventilator 40 06/26/16 16:00 85 06/26/16 15:05 86 16 97 Mechanical Ventilator 40 06/26/16 15:00 81 15 96 Mechanical Ventilator 40 06/26/16 15:00 81 15 40 06/26/16 15:00 86 27 110/55 96 Mechanical Ventilator 40 06/26/16 14:00 88 26 106/84 96 Mechanical Ventilator 40 06/26/16 13:00 99.3 88 15 100/56 95 Mechanical Ventilator 40 06/26/16 13:00 88 17 40 06/26/16 12:00 40 06/26/16 12:00 94 06/26/16 12:00 101.1 90 16 99/52 95 Mechanical Ventilator 40 Status: awake Condition: critical HEENT: atraumatic Lungs: chest wall tender Heart: HR/BP stable Abdomen: soft, non-tender Extremities: no C/C/E Decubiti: location Micro: Microbiology Date/Time Source Procedure Growth Status 06/24/16 13:50 Sputum Gram Stain - Final Complete 06/24/16 13:50 Sputum Culture - Final Fany Albicans Complete Accucheck: 142 Critical Care - Subjective ROS Limited/Unobtainable: No ICU Day: 6 Intubation Day: 6 Condition: critical FI02: 40 Vent Support Breath Rate: 15 Vent Support Mode: AC Vent Tidal Volume: 600 Sputum Amount: Moderate PEEP: 5.0 PIP: 40 Tube Feeding Amount: 40 I&O: Intake and Output 06/26/16 06/27/16 19:00 07:00 Intake Total 790 ml 890 ml Output Total 590 ml 395 ml Balance 200 ml 495 ml Free Water 200 ml IV Total 110 ml 110 ml Tube Feeding 480 ml 480 ml Other 200 ml 100 ml Output Urine Total 590 ml 395 ml CXR: slightly better, ET-Tube: 8.0 ET Position: 26 Labs: Laboratory Tests Test 06/26/16 17:30 06/27/16 04:30 06/27/16 07:30 CSF Herpes Simplex II DNA (PCR) Pending Cytomegalovirus DNA PCR copies/ml Pending Cytomegalovirus DNA PCR log10 Pending Herpes Simplex Virus I DNA (PCR) Pending Monoscreen Pending Parvovirus (B19) IgM Antibody Pending Parvovirus B19 DNA (PCR) Pending Varicella-Zoster IgM Antibody Pending White Blood Count 12.2 K/UL (4.8-10.8) H Red Blood Count 2.71 M/UL (4.70-6.10) L Hemoglobin 7.9 G/DL (14.2-18.0) L Hematocrit 26.3 % (42.0-52.0) L Mean Corpuscular Volume 97 FL (80-99) Mean Corpuscular Hemoglobin 29.0 PG (27.0-31.0) Mean Corpuscular Hemoglobin Concent 29.8 G/DL (32.0-36.0) L Red Cell Distribution Width 16.5 % (11.6-14.8) H Platelet Count 252 K/UL (150-450) Mean Platelet Volume 6.2 FL (6.5-10.1) L Neutrophils (%) (Auto) % (45.0-75.0) Lymphocytes (%) (Auto) % (20.0-45.0) Monocytes (%) (Auto) % (1.0-10.0) Eosinophils (%) (Auto) % (0.0-3.0) Basophils (%) (Auto) % (0.0-2.0) Differential Total Cells Counted 100 Neutrophils % (Manual) 88 % (45-75) H Lymphocytes % (Manual) 6 % (20-45) L Monocytes % (Manual) 2 % (1-10) Eosinophils % (Manual) 3 % (0-3) Basophils % (Manual) 0 % (0-2) Band Neutrophils 1 % (0-8) Platelet Estimate Adequate Platelet Morphology Normal Hypochromasia 1+ Anisocytosis 1+ Macrocytosis 1+ Sodium Level 149 mEQ/L (135-145) H Potassium Level 4.6 mEQ/L (3.4-4.9) Chloride Level 109 mEQ/L (98-107) H Carbon Dioxide Level 25 mEQ/L (20-30) Anion Gap 15 (5-15) Blood Urea Nitrogen 66 mg/dL (7-23) H Creatinine 3.1 mg/dL (0.7-1.2) H Estimat Glomerular Filtration Rate mL/min (>60) Glucose Level 157 mg/dL (74-106) H Uric Acid 6.9 mg/dL (3.0-7.5) Calcium Level 8.3 mg/dL (8.6-10.2) L Phosphorus Level 3.2 mg/dL (2.5-4.8) Magnesium Level 1.7 mg/dL (1.7-2.5) Total Bilirubin < 0.2 mg/dL (0.0-1.2) Gamma Glutamyl Transpeptidase 19 U/L (8-61) Aspartate Amino Transf (AST/SGOT) 24 U/L (5-40) Alanine Aminotransferase (ALT/SGPT) 12 U/L (3-41) Alkaline Phosphatase 81 U/L (40-129) C-Reactive Protein, Quantitative 28.5 mg/dL (< 0.5) H Pro-B-Type Natriuretic Peptide 8528 pg/mL (0-450) H Total Protein 4.9 g/dL (6.6-8.7) L Albumin 1.9 g/dL (3.5-5.2) L Globulin 3.0 g/dL Albumin/Globulin Ratio 0.6 (1.0-2.7) L Arterial Blood pH 7.455 (7.350-7.450) Arterial Blood Partial Pressure CO2 35.4 mmHg (35.0-45.0) Arterial Blood Partial Pressure O2 167.1 mmHg (75.0-100.0) H Arterial Blood HCO3 24.3 mmol/L (22.0-26.0) Arterial Blood Oxygen Saturation 98.9 % (92.0-98.0) H Arterial Blood Base Excess 0.5 Adama Test Positive AMADO SCHULER Jun 27, 2016 11:18
--- NOTE | 2016-06-27 12:25 | General Progress Note ---
Assessment/Plan Status: unchanged Status Narrative Cr 3.1 Assessment/Plan status: Acute Renal Failure- Cr stable Acute respiratory failure- septic shock , metabolic acidosis Superimposed on CRI due to DM / HTN PVD s/p amputation- Severe Anemia s/p Heart transplant sacral decub plan: transfuse- slow Hydrate- free water, D5 watch CHF Sxs wound care- monitor renal parameters- optimize cardiac and pulm status- wean as possible. avoid nephrotoxics per ID and cardiology discussed with RN Subjective ROS Limited/Unobtainable: Yes Allergies: Coded Allergies: ADHESIVE TAPE (Verified Allergy, Unknown, Rash, 05/27/16) PLASTIC TAPE-COPIED FROM UNCODED SECTION PENICILLINS (Verified Allergy, Unknown, 06/20/16) PROCAINE (Verified Allergy, Unknown, Rash, 08/19/14) COPIED FRON UNCODED Objective Last 24 Hour Vital Signs Date Time Temp Pulse Resp B/P Pulse Ox O2 Delivery O2 Flow Rate FiO2 06/27/16 11:47 40 06/27/16 11:17 96 42 40 06/27/16 11:00 96 16 110/45 96 Mechanical Ventilator 40 06/27/16 10:00 91 16 113/47 96 Mechanical Ventilator 40 06/27/16 09:00 93 16 100/40 97 Mechanical Ventilator 40 06/27/16 09:00 92 15 40 06/27/16 08:00 89 06/27/16 08:00 40 06/27/16 08:00 89 16 102/52 100 Mechanical Ventilator 40 06/27/16 07:00 98.5 89 16 107/55 100 Mechanical Ventilator 40 06/27/16 06:40 81 15 40 06/27/16 06:00 88 15 85/43 100 Mechanical Ventilator 40 06/27/16 05:00 92 15 106/56 100 Mechanical Ventilator 40 06/27/16 04:59 91 15 40 06/27/16 04:00 40 06/27/16 04:00 92 06/27/16 04:00 98.9 92 16 102/51 100 Mechanical Ventilator 40 06/27/16 03:05 104 20 100 Mechanical Ventilator 40 06/27/16 03:00 103 18 40 06/27/16 03:00 100 21 126/64 100 Mechanical Ventilator 40 06/27/16 03:00 103 18 100 Mechanical Ventilator 40 06/27/16 02:00 95 17 101/56 98 Mechanical Ventilator 40 06/27/16 01:00 128 23 131/76 98 Mechanical Ventilator 40 06/27/16 00:45 134 21 40 06/27/16 00:00 40 06/27/16 00:00 99.2 94 19 137/55 98 Mechanical Ventilator 40 06/27/16 00:00 94 06/26/16 23:26 94 23 99 Mechanical Ventilator 40 06/26/16 23:21 91 23 40 06/26/16 23:21 91 23 99 Mechanical Ventilator 40 06/26/16 23:00 88 17 101/50 99 Mechanical Ventilator 40 06/26/16 22:00 76 16 98/47 95 Mechanical Ventilator 40 06/26/16 21:18 88 18 40 06/26/16 21:11 98.9 06/26/16 21:00 98.9 87 16 98/47 96 Mechanical Ventilator 40 06/26/16 20:00 100.6 91 21 115/53 96 Mechanical Ventilator 40 06/26/16 20:00 40 06/26/16 20:00 91 06/26/16 19:20 94 21 40 06/26/16 19:20 95 16 96 Mechanical Ventilator 40 06/26/16 19:20 94 21 97 Mechanical Ventilator 40 06/26/16 19:00 92 24 107/49 95 Mechanical Ventilator 40 06/26/16 18:00 88 20 109/48 99 Mechanical Ventilator 40 06/26/16 17:05 90 16 40 06/26/16 17:00 90 16 118/52 96 Mechanical Ventilator 40 06/26/16 16:15 97/54 06/26/16 16:00 40 06/26/16 16:00 99.1 80 16 97/54 96 Mechanical Ventilator 40 06/26/16 16:00 85 06/26/16 15:05 86 16 97 Mechanical Ventilator 40 06/26/16 15:00 81 15 96 Mechanical Ventilator 40 06/26/16 15:00 81 15 40 06/26/16 15:00 86 27 110/55 96 Mechanical Ventilator 40 06/26/16 14:00 88 26 106/84 96 Mechanical Ventilator 40 06/26/16 13:00 99.3 88 15 100/56 95 Mechanical Ventilator 40 06/26/16 13:00 88 17 40 Intake and Output 06/26/16 06/27/16 19:00 07:00 Intake Total 790 ml 890 ml Output Total 590 ml 395 ml Balance 200 ml 495 ml Free Water 200 ml IV Total 110 ml 110 ml Tube Feeding 480 ml 480 ml Other 200 ml 100 ml Output Urine Total 590 ml 395 ml Laboratory Tests 06/26/16 17:30: CSF Herpes Simplex II DNA (PCR) [Pending], Cytomegalovirus DNA PCR copies/ml [ Pending], Cytomegalovirus DNA PCR log10 [Pending], Herpes Simplex Virus I DNA ( PCR) [Pending], Monoscreen [Pending], Parvovirus (B19) IgM Antibody [Pending], Parvovirus B19 DNA (PCR) [Pending], Varicella-Zoster IgM Antibody [Pending] 06/27/16 04:30: White Blood Count 12.2H, Red Blood Count 2.71L, Hemoglobin 7.9L, Hematocrit 26.3L, Mean Corpuscular Volume 97, Mean Corpuscular Hemoglobin 29.0, Mean Corpuscular Hemoglobin Concent 29.8L, Red Cell Distribution Width 16.5H, Platelet Count 252, Mean Platelet Volume 6.2L, Neutrophils (%) (Auto) , Lymphocytes (%) (Auto) , Monocytes (%) (Auto) , Eosinophils (%) (Auto) , Basophils (%) (Auto) , Differential Total Cells Counted 100, Neutrophils % ( Manual) 88H, Lymphocytes % (Manual) 6L, Monocytes % (Manual) 2, Eosinophils % ( Manual) 3, Basophils % (Manual) 0, Band Neutrophils 1, Platelet Estimate Adequate, Platelet Morphology Normal, Hypochromasia 1+, Anisocytosis 1+, Macrocytosis 1+, Sodium Level 149H, Potassium Level 4.6, Chloride Level 109H, Carbon Dioxide Level 25, Anion Gap 15, Blood Urea Nitrogen 66H, Creatinine 3.1H , Estimat Glomerular Filtration Rate , Glucose Level 157H, Uric Acid 6.9, Calcium Level 8.3L, Phosphorus Level 3.2, Magnesium Level 1.7, Total Bilirubin < 0.2, Gamma Glutamyl Transpeptidase 19, Aspartate Amino Transf (AST/SGOT) 24, Alanine Aminotransferase (ALT/SGPT) 12, Alkaline Phosphatase 81, C-Reactive Protein, Quantitative 28.5H, Pro-B-Type Natriuretic Peptide 8528H, Total Protein 4.9L, Albumin 1.9L, Globulin 3.0, Albumin/Globulin Ratio 0.6L 06/27/16 07:30: Arterial Blood pH 7.455H, Arterial Blood Partial Pressure CO2 35.4, Arterial Blood Partial Pressure O2 167.1H, Arterial Blood HCO3 24.3, Arterial Blood Oxygen Saturation 98.9H, Arterial Blood Base Excess 0.5, Adama Test Positive Height (Feet): 5 Height (Inches): 8.00 Weight (Pounds): 193 General Appearance: no apparent distress EENT: other - intubated Neck: stiff neck Cardiovascular: tachycardia Respiratory/Chest: decreased breath sounds Abdomen: distended Objective no other changes in PE BRIJESH CALDERON Jun 27, 2016 12:25
[2016-06-27] MEDS: DOPamine 400mg/250ml 250 ML IV SCH (16:10)
--- NOTE | 2016-06-27 16:31 | Cardiology Progress Note ---
Assessment/Plan Assessment/Plan acute respiratory ]failure, presumably due to pneumonia post cardiac transplant renal insufficiency anemia montior Hb level cardiac status unchanged Subjective Subjective the patient is intubated, opens his eyes, does not follow instructions Objective Last 24 Hour Vital Signs Date Time Temp Pulse Resp B/P Pulse Ox O2 Delivery O2 Flow Rate FiO2 06/27/16 16:10 116/51 06/27/16 16:00 40 06/27/16 16:00 84 18 116/51 99 Mechanical Ventilator 40 06/27/16 16:00 81 06/27/16 15:06 90 15 40 06/27/16 15:00 99.3 94 20 112/44 98 Mechanical Ventilator 40 06/27/16 14:00 94 20 108/74 97 Mechanical Ventilator 40 06/27/16 13:28 94 32 40 06/27/16 13:14 88 18 40 06/27/16 13:00 94 28 91/45 100 Mechanical Ventilator 40 06/27/16 12:00 98.7 89 16 95/45 96 Mechanical Ventilator 40 06/27/16 12:00 40 06/27/16 12:00 87 06/27/16 11:47 40 06/27/16 11:17 96 42 40 06/27/16 11:00 96 16 110/45 96 Mechanical Ventilator 40 06/27/16 10:00 91 16 113/47 96 Mechanical Ventilator 40 06/27/16 09:00 93 16 100/40 97 Mechanical Ventilator 40 06/27/16 09:00 92 15 40 06/27/16 08:00 89 06/27/16 08:00 40 06/27/16 08:00 89 16 102/52 100 Mechanical Ventilator 40 06/27/16 07:00 98.5 89 16 107/55 100 Mechanical Ventilator 40 06/27/16 06:40 81 15 40 06/27/16 06:00 88 15 85/43 100 Mechanical Ventilator 40 06/27/16 05:00 92 15 106/56 100 Mechanical Ventilator 40 06/27/16 04:59 91 15 40 06/27/16 04:00 40 06/27/16 04:00 92 06/27/16 04:00 98.9 92 16 102/51 100 Mechanical Ventilator 40 06/27/16 03:05 104 20 100 Mechanical Ventilator 40 06/27/16 03:00 103 18 40 06/27/16 03:00 100 21 126/64 100 Mechanical Ventilator 40 06/27/16 03:00 103 18 100 Mechanical Ventilator 40 06/27/16 02:00 95 17 101/56 98 Mechanical Ventilator 40 06/27/16 01:00 128 23 131/76 98 Mechanical Ventilator 40 06/27/16 00:45 134 21 40 06/27/16 00:00 40 06/27/16 00:00 99.2 94 19 137/55 98 Mechanical Ventilator 40 06/27/16 00:00 94 06/26/16 23:26 94 23 99 Mechanical Ventilator 40 06/26/16 23:21 91 23 40 06/26/16 23:21 91 23 99 Mechanical Ventilator 40 06/26/16 23:00 88 17 101/50 99 Mechanical Ventilator 40 06/26/16 22:00 76 16 98/47 95 Mechanical Ventilator 40 06/26/16 21:18 88 18 40 06/26/16 21:11 98.9 06/26/16 21:00 98.9 87 16 98/47 96 Mechanical Ventilator 40 06/26/16 20:00 100.6 91 21 115/53 96 Mechanical Ventilator 40 06/26/16 20:00 40 06/26/16 20:00 91 06/26/16 19:20 94 21 40 06/26/16 19:20 95 16 96 Mechanical Ventilator 40 06/26/16 19:20 94 21 97 Mechanical Ventilator 40 06/26/16 19:00 92 24 107/49 95 Mechanical Ventilator 40 06/26/16 18:00 88 20 109/48 99 Mechanical Ventilator 40 06/26/16 17:05 90 16 40 06/26/16 17:00 90 16 118/52 96 Mechanical Ventilator 40 General Appearance: on vent EENT: PERRL/EOMI Neck: supple Rhythm: NSR, PACs Cardiovascular: normal rate Respiratory/Chest: crackles/rales Abdomen: soft, distended Extremities: no swelling, normal capillary refill Neurologic: alert Intake and Output 06/26/16 06/27/16 19:00 07:00 Intake Total 790 ml 890 ml Output Total 590 ml 395 ml Balance 200 ml 495 ml Free Water 200 ml IV Total 110 ml 110 ml Tube Feeding 480 ml 480 ml Other 200 ml 100 ml Output Urine Total 590 ml 395 ml Laboratory Tests Test 06/26/16 17:30 06/27/16 04:30 06/27/16 07:30 CSF Herpes Simplex II DNA (PCR) Pending Cytomegalovirus DNA PCR copies/ml Pending Cytomegalovirus DNA PCR log10 Pending Herpes Simplex Virus I DNA (PCR) Pending Monoscreen Pending Parvovirus (B19) IgM Antibody Pending Parvovirus B19 DNA (PCR) Pending Varicella-Zoster IgM Antibody Pending White Blood Count 12.2 K/UL (4.8-10.8) H Red Blood Count 2.71 M/UL (4.70-6.10) L Hemoglobin 7.9 G/DL (14.2-18.0) L Hematocrit 26.3 % (42.0-52.0) L Mean Corpuscular Volume 97 FL (80-99) Mean Corpuscular Hemoglobin 29.0 PG (27.0-31.0) Mean Corpuscular Hemoglobin Concent 29.8 G/DL (32.0-36.0) L Red Cell Distribution Width 16.5 % (11.6-14.8) H Platelet Count 252 K/UL (150-450) Mean Platelet Volume 6.2 FL (6.5-10.1) L Neutrophils (%) (Auto) % (45.0-75.0) Lymphocytes (%) (Auto) % (20.0-45.0) Monocytes (%) (Auto) % (1.0-10.0) Eosinophils (%) (Auto) % (0.0-3.0) Basophils (%) (Auto) % (0.0-2.0) Differential Total Cells Counted 100 Neutrophils % (Manual) 88 % (45-75) H Lymphocytes % (Manual) 6 % (20-45) L Monocytes % (Manual) 2 % (1-10) Eosinophils % (Manual) 3 % (0-3) Basophils % (Manual) 0 % (0-2) Band Neutrophils 1 % (0-8) Platelet Estimate Adequate Platelet Morphology Normal Hypochromasia 1+ Anisocytosis 1+ Macrocytosis 1+ Sodium Level 149 mEQ/L (135-145) H Potassium Level 4.6 mEQ/L (3.4-4.9) Chloride Level 109 mEQ/L (98-107) H Carbon Dioxide Level 25 mEQ/L (20-30) Anion Gap 15 (5-15) Blood Urea Nitrogen 66 mg/dL (7-23) H Creatinine 3.1 mg/dL (0.7-1.2) H Estimat Glomerular Filtration Rate mL/min (>60) Glucose Level 157 mg/dL (74-106) H Uric Acid 6.9 mg/dL (3.0-7.5) Calcium Level 8.3 mg/dL (8.6-10.2) L Phosphorus Level 3.2 mg/dL (2.5-4.8) Magnesium Level 1.7 mg/dL (1.7-2.5) Total Bilirubin < 0.2 mg/dL (0.0-1.2) Gamma Glutamyl Transpeptidase 19 U/L (8-61) Aspartate Amino Transf (AST/SGOT) 24 U/L (5-40) Alanine Aminotransferase (ALT/SGPT) 12 U/L (3-41) Alkaline Phosphatase 81 U/L (40-129) C-Reactive Protein, Quantitative 28.5 mg/dL (< 0.5) H Pro-B-Type Natriuretic Peptide 8528 pg/mL (0-450) H Total Protein 4.9 g/dL (6.6-8.7) L Albumin 1.9 g/dL (3.5-5.2) L Globulin 3.0 g/dL Albumin/Globulin Ratio 0.6 (1.0-2.7) L Arterial Blood pH 7.455 (7.350-7.450) Arterial Blood Partial Pressure CO2 35.4 mmHg (35.0-45.0) Arterial Blood Partial Pressure O2 167.1 mmHg (75.0-100.0) H Arterial Blood HCO3 24.3 mmol/L (22.0-26.0) Arterial Blood Oxygen Saturation 98.9 % (92.0-98.0) H Arterial Blood Base Excess 0.5 Adama Test Positive ERIN BERRY Jun 27, 2016 16:30
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
[2016-06-27] MEDS: DAPTOmycin 500 MG in NS 55 ML IV SCH (19:34)
[2016-06-27] MEDS ORDERED: NS 275ml ONE (20:34)
[2016-06-27] MEDS ORDERED: Tubing IV Secondary IV ONE (20:34)
[2016-06-28] VITALS (24 sets, daily range): BP systolic 91–142; BP diastolic 47–91
[2016-06-28] MEDS: LORazepam Inj 2mg/ml 1ml IV PRN ×2 (00:44→10:22)
[2016-06-28 05:15] LABS: BASOPHILS % (AUTO) 0.4 % (0.0-2.0); EOSINOPHILS % (AUTO) 5.2 % (0.0-3.0); LYMPHOCYTES % (AUTO) 10.7 % (20.0-45.0); MEAN CORPUSCULAR HEMOGLOBIN 29.5 PG (27.0-31.0); MEAN CORPUSCULAR HGB CONC 30.5 G/DL (32.0-36.0); MEAN CORPUSCULAR VOLUME 97 FL (80-99); MEAN PLATELET VOLUME 5.9 FL (6.5-10.1); MONOCYTES % (AUTO) 6.4 % (1.0-10.0); NEUTROPHILS % (AUTO) 77.3 % (45.0-75.0); PLATELET COUNT 256 K/UL (150-450); RED CELL DISTRIBUTION WIDTH 15.8 % (11.6-14.8); WHITE BLOOD COUNT 9.2 K/UL (4.8-10.8)
[2016-06-28 05:47] LABS: ALANINE AMINOTRANSFERASE 15 U/L (3-41); ALBUMIN/GLOBULIN RATIO 0.6 (1.0-2.7); ANION GAP 15 (5-15); ASPARTATE AMINO TRANSFERASE 29 U/L (5-40); CALCIUM 8.4 mg/dL (8.6-10.2); CARBON DIOXIDE 23 mEQ/L (20-30); CHLORIDE 112 mEQ/L (98-107); CREATININE 3.2 mg/dL (0.7-1.2); HEMOLYSIS 2; MAGNESIUM 1.7 mg/dL (1.7-2.5); PHOSPHORUS 2.7 mg/dL (2.5-4.8); POTASSIUM 4.4 mEQ/L (3.4-4.9); SODIUM 150 mEQ/L (135-145); TOTAL PROTEIN 4.9 g/dL (6.6-8.7)
[2016-06-28] MEDS: NovoLOG Insulin Flexpen SUBQ SCH ×4 (05:52→23:45)
[2016-06-28 08:32] LABS: ABG ALLEN TEST POSITIVE; ABG BASE EXCESS 0.1; ABG PCO2 35.9 mmHg (35.0-45.0)
[2016-06-28] MEDS: Pantoprazole Inj IVP SCH (08:47)
[2016-06-28] MEDS: Docusate 100mg tablet NG SCH ×3 (08:47→17:36)
[2016-06-28] MEDS: Lactobacillus-GG tablet GT SCH ×3 (08:47→17:35)
[2016-06-28] MEDS: Meropenem 500 MG in NS 110 ML IVPB SCH ×2 (08:48→20:31)
[2016-06-28] MEDS: Dakin's 0.5% (Full Strength) 16oz TOPIC SCH (08:48)
[2016-06-28] MEDS: Morphine Sulfate 2mg/ml Inj IVP PRN (08:49)
[2016-06-28] MEDS: Mycophenolate 250mg cap GT SCH ×2 (08:59→17:35)
--- NOTE | 2016-06-28 10:14 | General Progress Note ---
Assessment/Plan Status: stable - from renal stand, unchanged - - remains intubated Assessment/Plan status: Acute Renal Failure- Cr stable Acute respiratory failure- septic shock , metabolic acidosis Superimposed on CRI due to DM / HTN PVD s/p amputation- Severe Anemia s/p Heart transplant sacral decub plan: transfused slow Hydrate- free water, D5 watch CHF Sxs wound care- monitor renal parameters- optimize cardiac and pulm status- wean as possible. avoid nephrotoxics per ID and cardiology discussed with RN Subjective ROS Limited/Unobtainable: Yes Allergies: Coded Allergies: ADHESIVE TAPE (Verified Allergy, Unknown, Rash, 05/27/16) PLASTIC TAPE-COPIED FROM UNCODED SECTION PENICILLINS (Verified Allergy, Unknown, 06/20/16) PROCAINE (Verified Allergy, Unknown, Rash, 08/19/14) COPIED FRON UNCODED Objective Last 24 Hour Vital Signs Date Time Temp Pulse Resp B/P Pulse Ox O2 Delivery O2 Flow Rate FiO2 06/28/16 09:08 88 19 40 06/28/16 07:36 79 15 40 06/28/16 06:00 85 22 116/47 100 Mechanical Ventilator 40 06/28/16 05:12 81 15 40 06/28/16 05:00 87 20 129/51 98 Mechanical Ventilator 40 06/28/16 04:00 40 06/28/16 04:00 99.1 86 18 142/65 98 Mechanical Ventilator 40 06/28/16 04:00 86 06/28/16 03:30 86 17 40 06/28/16 03:00 85 22 136/54 99 Mechanical Ventilator 40 06/28/16 02:00 81 17 111/49 97 Mechanical Ventilator 40 06/28/16 01:39 92 16 40 06/28/16 01:00 82 18 114/52 97 Mechanical Ventilator 40 06/28/16 00:00 86 06/28/16 00:00 40 06/28/16 00:00 98.9 86 18 129/55 97 Mechanical Ventilator 40 06/27/16 23:20 88 17 40 06/27/16 23:00 75 23 102/50 99 Mechanical Ventilator 40 06/27/16 22:00 76 23 95/47 99 Mechanical Ventilator 40 06/27/16 21:19 18 15 40 06/27/16 21:00 85 23 107/51 99 Mechanical Ventilator 40 06/27/16 20:01 98.8 88 23 92/55 99 Mechanical Ventilator 40 06/27/16 20:00 40 06/27/16 20:00 89 06/27/16 19:58 89 15 40 06/27/16 19:00 95 23 88/50 99 Mechanical Ventilator 40 06/27/16 18:35 100.0 06/27/16 18:00 129 24 110/86 99 Mechanical Ventilator 40 06/27/16 17:00 114 25 135/65 99 Mechanical Ventilator 40 06/27/16 16:56 95 19 40 06/27/16 16:10 116/51 06/27/16 16:00 40 06/27/16 16:00 84 18 116/51 99 Mechanical Ventilator 40 06/27/16 16:00 81 06/27/16 15:06 90 15 40 06/27/16 15:00 99.3 94 20 112/44 98 Mechanical Ventilator 40 06/27/16 14:15 40 06/27/16 14:00 94 20 108/74 97 Mechanical Ventilator 40 06/27/16 13:30 40 06/27/16 13:28 94 32 40 06/27/16 13:14 88 18 40 06/27/16 13:00 94 28 91/45 100 Mechanical Ventilator 40 06/27/16 12:00 98.7 89 16 95/45 96 Mechanical Ventilator 40 06/27/16 12:00 40 06/27/16 12:00 87 06/27/16 11:47 40 06/27/16 11:45 40 06/27/16 11:30 40 06/27/16 11:17 96 42 40 06/27/16 11:00 96 16 110/45 96 Mechanical Ventilator 40 Intake and Output 06/27/16 06/28/16 19:00 07:00 Intake Total 1200 ml 975 ml Output Total 870 ml 850 ml Balance 330 ml 125 ml Free Water 300 ml 300 ml IV Total 330 ml 205 ml Tube Feeding 480 ml 440 ml Other 90 ml 30 ml Output Urine Total 870 ml 850 ml Laboratory Tests 06/28/16 05:00: White Blood Count 9.2, Red Blood Count 3.00L, Hemoglobin 8.9L, Hematocrit 29.0L , Mean Corpuscular Volume 97, Mean Corpuscular Hemoglobin 29.5, Mean Corpuscular Hemoglobin Concent 30.5L, Red Cell Distribution Width 15.8H, Platelet Count 256, Mean Platelet Volume 5.9L, Neutrophils (%) (Auto) 77.3H, Lymphocytes (%) (Auto) 10.7L, Monocytes (%) (Auto) 6.4, Eosinophils (%) (Auto) 5.2H, Basophils (%) (Auto) 0.4, Sodium Level 150H, Potassium Level 4.4, Chloride Level 112H, Carbon Dioxide Level 23, Anion Gap 15, Blood Urea Nitrogen 71H, Creatinine 3.2H, Estimat Glomerular Filtration Rate , Glucose Level 64L, Calcium Level 8.4L, Phosphorus Level 2.7, Magnesium Level 1.7, Total Bilirubin 0.3, Aspartate Amino Transf (AST/SGOT) 29, Alanine Aminotransferase (ALT/SGPT) 15, Alkaline Phosphatase 88, Total Protein 4.9L, Albumin 1.9L, Globulin 3.0, Albumin/Globulin Ratio 0.6L 06/28/16 08:25: Arterial Blood pH 7.440, Arterial Blood Partial Pressure CO2 35.9, Arterial Blood Partial Pressure O2 88.4, Arterial Blood HCO3 24.0, Arterial Blood Oxygen Saturation 96.5, Arterial Blood Base Excess 0.1, Adama Test Positive Height (Feet): 5 Height (Inches): 8.00 Weight (Pounds): 193 General Appearance: no apparent distress Cardiovascular: normal rate Respiratory/Chest: decreased breath sounds Abdomen: distended Objective no other changes in PE BRIJESH CALDERON Jun 28, 2016 10:14
--- NOTE | 2016-06-28 10:52 | Diagnostic Imaging Report ---
Clinical history: Shortness of breath Technique: Portable AP chest radiograph was obtained. Comparison: 06/26/16. Findings: Endotracheal tube tip terminates in the midtrachea, 3 cm above the diana. Enteric tube and right upper extremity PICC are in the appropriate positions. Median sternotomy wires identified. There is borderline cardiomegaly with suspected mild interstitial edema and trace effusions, stable. There is otherwise no significant interval change in the interval, allowing for differences in technique and positioning. Impression: 1. Endotracheal tube, enteric tube, and right upper extremity PICC are in appropriate positions. 2. Cardiomegaly with mild pulmonary edema and trace effusions, stable. Post cardiothoracic surgical changes noted.
--- NOTE | 2016-06-28 11:05 | Diagnostic Imaging Report ---
Indication: Dyspnea Technique: XRAY CHEST 1 V Comparison: 06/25/16 Findings: Endotracheal tube tip is at the thoracic inlet and should be advanced 3 cm. Nasogastric tube is again present. Right PICC line tip projects over the SVC/atrial junction. Left PICC line has been removed. Cardiomediastinal silhouette is stable. There is again interstitial edema. Osseous structures are stable. Impression: Endotracheal tube tip at the thoracic inlet and should be advanced 3 cm. Interval removal of the left PICC line. Otherwise stable chest. Findings discussed with the patient's ICU nurse.
--- NOTE | 2016-06-28 11:05 | Pulmonolgy Critical Care Note ---
Critical Care - Asmt/Plan Problems: (1) Respiratory failure requiring intubation (2) Acute encephalopathy (3) ATN (acute tubular necrosis) (4) Sepsis (5) Decubitus skin ulcer Assessment & Plan: on hip, left and right tuberosity of pelvis, sacral area and scrotum stage 2 Respiratory: monitor respiratory rate, adjust FIO2, CXR, weaning trial Cardiac: continue to monitor HR/BP Renal: F/U I&O, keep IV fluid, check electrolytes Infectious Disease: check cultures, continue antibiotics - Micafungin, Cubicin , Meropenem Endocrine: monitor blood sugar, continue sliding scale insulin Hematologic: monitor H/H, transfuse if hgb<8.5 Neurologic: PRN Ativan, PRN Morphine, keep patient comfortable Affect: PRN ativan Prophylaxis: Protonix Disposition: keep in ICU Notes Reviewed: line manager, cardio, 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, consultants, returned case inspectorgrocery manager - Objective Last 24 Hour Vital Signs Date Time Temp Pulse Resp B/P Pulse Ox O2 Delivery O2 Flow Rate FiO2 06/28/16 09:08 88 19 40 06/28/16 07:36 79 15 40 06/28/16 06:00 85 22 116/47 100 Mechanical Ventilator 40 06/28/16 05:12 81 15 40 06/28/16 05:00 87 20 129/51 98 Mechanical Ventilator 40 06/28/16 04:00 40 06/28/16 04:00 99.1 86 18 142/65 98 Mechanical Ventilator 40 06/28/16 04:00 86 06/28/16 03:30 86 17 40 06/28/16 03:00 85 22 136/54 99 Mechanical Ventilator 40 06/28/16 02:00 81 17 111/49 97 Mechanical Ventilator 40 06/28/16 01:39 92 16 40 06/28/16 01:00 82 18 114/52 97 Mechanical Ventilator 40 06/28/16 00:00 86 06/28/16 00:00 40 06/28/16 00:00 98.9 86 18 129/55 97 Mechanical Ventilator 40 06/27/16 23:20 88 17 40 06/27/16 23:00 75 23 102/50 99 Mechanical Ventilator 40 06/27/16 22:00 76 23 95/47 99 Mechanical Ventilator 40 06/27/16 21:19 18 15 40 06/27/16 21:00 85 23 107/51 99 Mechanical Ventilator 40 06/27/16 20:01 98.8 88 23 92/55 99 Mechanical Ventilator 40 06/27/16 20:00 40 06/27/16 20:00 89 06/27/16 19:58 89 15 40 06/27/16 19:00 95 23 88/50 99 Mechanical Ventilator 40 06/27/16 18:35 100.0 06/27/16 18:00 129 24 110/86 99 Mechanical Ventilator 40 06/27/16 17:00 114 25 135/65 99 Mechanical Ventilator 40 06/27/16 16:56 95 19 40 06/27/16 16:10 116/51 06/27/16 16:00 40 06/27/16 16:00 84 18 116/51 99 Mechanical Ventilator 40 06/27/16 16:00 81 06/27/16 15:06 90 15 40 06/27/16 15:00 99.3 94 20 112/44 98 Mechanical Ventilator 40 06/27/16 14:15 40 06/27/16 14:00 94 20 108/74 97 Mechanical Ventilator 40 06/27/16 13:30 40 06/27/16 13:28 94 32 40 06/27/16 13:14 88 18 40 06/27/16 13:00 94 28 91/45 100 Mechanical Ventilator 40 06/27/16 12:00 98.7 89 16 95/45 96 Mechanical Ventilator 40 06/27/16 12:00 40 06/27/16 12:00 87 06/27/16 11:47 40 06/27/16 11:45 40 06/27/16 11:30 40 06/27/16 11:17 96 42 40 Status: awake Condition: critical HEENT: atraumatic, normocephalic Lungs: clear Heart: HR/BP stable Abdomen: soft, active bowel sounds Extremities: no C/C/E, edema Decubiti: location Micro: Microbiology Date/Time Source Procedure Growth Status 06/26/16 11:15 Blood Blood Culture - Preliminary NO GROWTH AFTER 24 HOURS Resulted 06/26/16 10:00 Blood Blood Culture - Preliminary NO GROWTH AFTER 24 HOURS Resulted 06/26/16 21:00 Sputum Gram Stain - Final Resulted 06/26/16 21:00 Sputum Sputum Culture - Preliminary Resulted Accucheck: 94 Critical Care - Subjective ROS Limited/Unobtainable: No Interval Events: awake, weaning. tolerated 15 minutes of SIMV yesterday. FI02: 40 Vent Support Breath Rate: 15 Vent Support Mode: AC Vent Tidal Volume: 600 Sputum Amount: None PEEP: 5.0 PIP: 32 Tube Feeding Amount: 40 I&O: Intake and Output 06/27/16 06/28/16 19:00 07:00 Intake Total 1200 ml 975 ml Output Total 870 ml 850 ml Balance 330 ml 125 ml Free Water 300 ml 300 ml IV Total 330 ml 205 ml Tube Feeding 480 ml 440 ml Other 90 ml 30 ml Output Urine Total 870 ml 850 ml CXR: ET in good position ET-Tube: 8.0 ET Position: 26 Labs: Laboratory Tests Test 06/28/16 05:00 06/28/16 08:25 White Blood Count 9.2 K/UL (4.8-10.8) Red Blood Count 3.00 M/UL (4.70-6.10) L Hemoglobin 8.9 G/DL (14.2-18.0) L Hematocrit 29.0 % (42.0-52.0) L Mean Corpuscular Volume 97 FL (80-99) Mean Corpuscular Hemoglobin 29.5 PG (27.0-31.0) Mean Corpuscular Hemoglobin Concent 30.5 G/DL (32.0-36.0) L Red Cell Distribution Width 15.8 % (11.6-14.8) H Platelet Count 256 K/UL (150-450) Mean Platelet Volume 5.9 FL (6.5-10.1) L Neutrophils (%) (Auto) 77.3 % (45.0-75.0) H Lymphocytes (%) (Auto) 10.7 % (20.0-45.0) L Monocytes (%) (Auto) 6.4 % (1.0-10.0) Eosinophils (%) (Auto) 5.2 % (0.0-3.0) H Basophils (%) (Auto) 0.4 % (0.0-2.0) Sodium Level 150 mEQ/L (135-145) H Potassium Level 4.4 mEQ/L (3.4-4.9) Chloride Level 112 mEQ/L (98-107) H Carbon Dioxide Level 23 mEQ/L (20-30) Anion Gap 15 (5-15) Blood Urea Nitrogen 71 mg/dL (7-23) H Creatinine 3.2 mg/dL (0.7-1.2) H Estimat Glomerular Filtration Rate mL/min (>60) Glucose Level 64 mg/dL (74-106) L Calcium Level 8.4 mg/dL (8.6-10.2) L Phosphorus Level 2.7 mg/dL (2.5-4.8) Magnesium Level 1.7 mg/dL (1.7-2.5) Total Bilirubin 0.3 mg/dL (0.0-1.2) Aspartate Amino Transf (AST/SGOT) 29 U/L (5-40) Alanine Aminotransferase (ALT/SGPT) 15 U/L (3-41) Alkaline Phosphatase 88 U/L (40-129) Total Protein 4.9 g/dL (6.6-8.7) L Albumin 1.9 g/dL (3.5-5.2) L Globulin 3.0 g/dL Albumin/Globulin Ratio 0.6 (1.0-2.7) L Arterial Blood pH 7.440 (7.350-7.450) Arterial Blood Partial Pressure CO2 35.9 mmHg (35.0-45.0) Arterial Blood Partial Pressure O2 88.4 mmHg (75.0-100.0) Arterial Blood HCO3 24.0 mmol/L (22.0-26.0) Arterial Blood Oxygen Saturation 96.5 % (92.0-98.0) Arterial Blood Base Excess 0.1 Adama Test Positive AMADO SCHULER Jun 28, 2016 11:05
[2016-06-28] MEDS: Micafungin 100 MG in NS 110 ML IVPB SCH (11:41)
[2016-06-28 12:11] LABS: MONOTEST Negative (Negative)
[2016-06-28] MEDS ORDERED: Tubing Blood Filter IV ONE (14:14)
[2016-06-28] MEDS ORDERED: NS 275ml ONE (14:14)
[2016-06-28] MEDS ORDERED: Tubing IV Secondary IV ONE (14:14)
[2016-06-28 14:25] LABS: OTHERS PATHOLOGIST COMMENT
--- NOTE | 2016-06-28 15:17 | General Progress Note ---
Assessment/Plan Status: stable Assessment/Plan Overall he is more stable. He had a thrombosis in his LUE and his PICC line was switched to the RUE. He is receiving tube feeds through OG tube. Wound of the sacrum will still need debridement but is not emergent. He still needs to be optimized medically. For now, recommend continuing the dressing orders as prescribed, IV antibiotics, and weaning off of the ventilator. Subjective Date patient seen: Jun 28, 2016 Time patient seen: 13:00 ROS Limited/Unobtainable: Yes Allergies: Coded Allergies: ADHESIVE TAPE (Verified Allergy, Unknown, Rash, 05/27/16) PLASTIC TAPE-COPIED FROM UNCODED SECTION PENICILLINS (Verified Allergy, Unknown, 06/20/16) PROCAINE (Verified Allergy, Unknown, Rash, 08/19/14) COPIED FRON UNCODED Subjective Follow up evaluation on patient with multiple pressure ulcers of the trunk. Since he was last seen by me, patient was intubated and is in the ICU. He developed LGF and elevated WBC and was pancultured b ID and had adjustments made to his antibiotics. He is currently afebrile with normal WBC. He is intubated but awake and alert. Objective Last 24 Hour Vital Signs Date Time Temp Pulse Resp B/P Pulse Ox O2 Delivery O2 Flow Rate FiO2 06/28/16 15:06 99.3 91 19 133/91 97 Mechanical Ventilator 40 06/28/16 15:02 94 27 40 06/28/16 14:10 90 22 133/62 99 Mechanical Ventilator 40 06/28/16 13:35 99.0 06/28/16 13:31 90 29 40 06/28/16 13:12 88 22 124/54 98 Mechanical Ventilator 40 06/28/16 12:44 89 06/28/16 12:00 100.2 89 21 133/66 97 Mechanical Ventilator 40 06/28/16 11:54 40 06/28/16 11:12 89 19 40 06/28/16 11:00 91 21 122/70 96 Mechanical Ventilator 40 06/28/16 10:00 88 19 128/55 97 Mechanical Ventilator 40 06/28/16 09:08 88 19 40 06/28/16 09:00 89 20 135/67 98 Mechanical Ventilator 40 06/28/16 08:00 88 06/28/16 08:00 99.3 89 19 123/58 100 Mechanical Ventilator 40 06/28/16 08:00 40 06/28/16 07:36 79 15 40 06/28/16 07:15 89 21 119/50 99 Mechanical Ventilator 40 06/28/16 06:00 85 22 116/47 100 Mechanical Ventilator 40 06/28/16 05:12 81 15 40 06/28/16 05:00 87 20 129/51 98 Mechanical Ventilator 40 06/28/16 04:00 40 06/28/16 04:00 99.1 86 18 142/65 98 Mechanical Ventilator 40 06/28/16 04:00 86 06/28/16 03:30 86 17 40 06/28/16 03:00 85 22 136/54 99 Mechanical Ventilator 40 06/28/16 02:00 81 17 111/49 97 Mechanical Ventilator 40 06/28/16 01:39 92 16 40 06/28/16 01:00 82 18 114/52 97 Mechanical Ventilator 40 06/28/16 00:00 86 06/28/16 00:00 40 06/28/16 00:00 98.9 86 18 129/55 97 Mechanical Ventilator 40 06/27/16 23:20 88 17 40 06/27/16 23:00 75 23 102/50 99 Mechanical Ventilator 40 06/27/16 22:00 76 23 95/47 99 Mechanical Ventilator 40 06/27/16 21:19 18 15 40 06/27/16 21:00 85 23 107/51 99 Mechanical Ventilator 40 06/27/16 20:01 98.8 88 23 92/55 99 Mechanical Ventilator 40 06/27/16 20:00 40 06/27/16 20:00 89 06/27/16 19:58 89 15 40 06/27/16 19:00 95 23 88/50 99 Mechanical Ventilator 40 06/27/16 18:00 129 24 110/86 99 Mechanical Ventilator 40 06/27/16 17:00 114 25 135/65 99 Mechanical Ventilator 40 06/27/16 16:56 95 19 40 06/27/16 16:10 116/51 06/27/16 16:00 40 06/27/16 16:00 84 18 116/51 99 Mechanical Ventilator 40 06/27/16 16:00 81 Intake and Output 06/27/16 06/28/16 19:00 07:00 Intake Total 1200 ml 975 ml Output Total 870 ml 850 ml Balance 330 ml 125 ml Free Water 300 ml 300 ml IV Total 330 ml 205 ml Tube Feeding 480 ml 440 ml Other 90 ml 30 ml Output Urine Total 870 ml 850 ml Laboratory Tests 06/28/16 05:00: White Blood Count 9.2, Red Blood Count 3.00L, Hemoglobin 8.9L, Hematocrit 29.0L , Mean Corpuscular Volume 97, Mean Corpuscular Hemoglobin 29.5, Mean Corpuscular Hemoglobin Concent 30.5L, Red Cell Distribution Width 15.8H, Platelet Count 256, Mean Platelet Volume 5.9L, Neutrophils (%) (Auto) 77.3H, Lymphocytes (%) (Auto) 10.7L, Monocytes (%) (Auto) 6.4, Eosinophils (%) (Auto) 5.2H, Basophils (%) (Auto) 0.4, Sodium Level 150H, Potassium Level 4.4, Chloride Level 112H, Carbon Dioxide Level 23, Anion Gap 15, Blood Urea Nitrogen 71H, Creatinine 3.2H, Estimat Glomerular Filtration Rate , Glucose Level 64L, Calcium Level 8.4L, Phosphorus Level 2.7, Magnesium Level 1.7, Total Bilirubin 0.3, Aspartate Amino Transf (AST/SGOT) 29, Alanine Aminotransferase (ALT/SGPT) 15, Alkaline Phosphatase 88, Total Protein 4.9L, Albumin 1.9L, Globulin 3.0, Albumin/Globulin Ratio 0.6L 06/28/16 08:25: Arterial Blood pH 7.440, Arterial Blood Partial Pressure CO2 35.9, Arterial Blood Partial Pressure O2 88.4, Arterial Blood HCO3 24.0, Arterial Blood Oxygen Saturation 96.5, Arterial Blood Base Excess 0.1, Adama Test Positive Height (Feet): 5 Height (Inches): 8.00 Weight (Pounds): 193 General Appearance: no apparent distress, alert Cardiovascular: normal rate Abdomen: soft Extremities: swelling - LUE with significant swelling. Skin: other - Sacral ulcer with slight interval improvement. Small amount of devitalized tissue in the left medial buttock area but this has been stable. Right trochanter ulcer stable with no slough or purulent drainage. Periskin with no erythema, warmth, or crepitus. JOE MARTEL Jun 28, 2016 15:17
[2016-06-28] MEDS: DOPamine 400mg/250ml 250 ML IV SCH (16:15)
--- NOTE | 2016-06-28 17:30 | Infectious Diseases Prog Note ---
Assessment/Plan Problems: (1) Sepsis Assessment & Plan: improving , on daptomycin , levofloxacin , meropenem , and micafungin , repeated blood culture is negative , and sputum culture grew junaid albicans only which is most likely colonization and not real. will discontinue levofloxacin today, since no growth from his blood , and continue the rest for now pending final culture results. recommend transfer to [facility] for higher level of care and to be monitored by the transplant team too. 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 continue local wound care , and off loading. (4) Anemia Assessment & Plan: S/P blood transfusion, monitor H&H, need to rule out GI source, recommend GI consult. (5) PVD (peripheral vascular disease) Assessment & Plan: S/P B/L AKA. (6) CKD (chronic kidney disease) Assessment & Plan: avoid nephrotoxic meds, monitor UOP, and renal function, renal is following (7) Heart transplant status Assessment & Plan: recommend to communicate with his heart transplant team at [facility] for further recommendation, and possible transfer to [facility] for higher level of care, continue transplant meds , and adjust as per his GFR. cardiology is following Subjective Constitutional: Reports: anorexia, fatigue HEENT: Denies: congestion, coryza, dysphagia, hearing change, no symptoms, other, visual change Respiratory: Denies: dry cough, no symptoms, other, productive cough, shortness of breath Cardiovascular: Denies: chest pain, dyspnea on exertion, no symptoms, other, palpitations Gastrointestinal/Abdominal: Denies: bloating, blood in stool, constipation, diarrhea, nausea, no symptoms, other, vomiting Genitourinary: Denies: dysuria, frequency, hematuria, no symptoms, nocturia, other Neurologic: Denies: confusion, headache, no symptoms, numbness, other, weakness Psychiatric: Denies: anxiety, depression, no symptoms, other Skin: Reports: ulcer Allergies: Coded Allergies: ADHESIVE TAPE (Verified Allergy, Unknown, Rash, 05/27/16) PLASTIC TAPE-COPIED FROM UNCODED SECTION PENICILLINS (Verified Allergy, Unknown, 06/20/16) PROCAINE (Verified Allergy, Unknown, Rash, 08/19/14) COPIED FRON UNCODED Subjective he is still intubated on mechanical ventilation but awake and respond well to verbal commands, had low grade fever , no diarrhea, with less secretions. Objective Vital Signs Last 24 Hour Vital Signs Date Time Temp Pulse Resp B/P Pulse Ox O2 Delivery O2 Flow Rate FiO2 06/28/16 17:00 82 18 91/49 98 Mechanical Ventilator 40 06/28/16 16:15 106/48 06/28/16 16:00 97.8 84 19 93/48 97 Mechanical Ventilator 40 06/28/16 16:00 40 06/28/16 15:06 99.3 91 19 133/91 97 Mechanical Ventilator 40 06/28/16 15:02 94 27 40 06/28/16 14:10 90 22 133/62 99 Mechanical Ventilator 40 06/28/16 13:35 99.0 06/28/16 13:31 90 29 40 06/28/16 13:12 88 22 124/54 98 Mechanical Ventilator 40 06/28/16 12:44 89 06/28/16 12:00 100.2 89 21 133/66 97 Mechanical Ventilator 40 06/28/16 11:54 40 06/28/16 11:12 89 19 40 06/28/16 11:00 91 21 122/70 96 Mechanical Ventilator 40 06/28/16 10:00 88 19 128/55 97 Mechanical Ventilator 40 06/28/16 09:08 88 19 40 06/28/16 09:00 89 20 135/67 98 Mechanical Ventilator 40 06/28/16 08:00 88 06/28/16 08:00 99.3 89 19 123/58 100 Mechanical Ventilator 40 06/28/16 08:00 40 06/28/16 07:36 79 15 40 06/28/16 07:15 89 21 119/50 99 Mechanical Ventilator 40 06/28/16 06:00 85 22 116/47 100 Mechanical Ventilator 40 06/28/16 05:12 81 15 40 06/28/16 05:00 87 20 129/51 98 Mechanical Ventilator 40 06/28/16 04:00 40 06/28/16 04:00 99.1 86 18 142/65 98 Mechanical Ventilator 40 06/28/16 04:00 86 06/28/16 03:30 86 17 40 06/28/16 03:00 85 22 136/54 99 Mechanical Ventilator 40 06/28/16 02:00 81 17 111/49 97 Mechanical Ventilator 40 06/28/16 01:39 92 16 40 06/28/16 01:00 82 18 114/52 97 Mechanical Ventilator 40 06/28/16 00:00 86 06/28/16 00:00 40 06/28/16 00:00 98.9 86 18 129/55 97 Mechanical Ventilator 40 06/27/16 23:20 88 17 40 06/27/16 23:00 75 23 102/50 99 Mechanical Ventilator 40 06/27/16 22:00 76 23 95/47 99 Mechanical Ventilator 40 06/27/16 21:19 18 15 40 06/27/16 21:00 85 23 107/51 99 Mechanical Ventilator 40 06/27/16 20:01 98.8 88 23 92/55 99 Mechanical Ventilator 40 06/27/16 20:00 40 06/27/16 20:00 89 06/27/16 19:58 89 15 40 06/27/16 19:00 95 23 88/50 99 Mechanical Ventilator 40 06/27/16 18:00 129 24 110/86 99 Mechanical Ventilator 40 Height (Feet): 5 Height (Inches): 8.00 Weight (Pounds): 193 General Appearance: WD/WN, no acute distress HEENT: normocephalic, atraumatic, anicteric, mucous membranes moist Respiratory/Chest: chest wall non-tender, normal breath sounds, no respiratory distress, no accessory muscle use, decreased breath sounds, crackles/rales Cardiovascular: normal peripheral pulses, normal rate, regular rhythm, no gallop/murmur, no JVD Abdomen: normal bowel sounds, soft, non tender, no organomegaly, no mass, no scars, distended Extremities: no cyanosis Skin: no rash, ulcers - large sacral and ischial decubitus wound with granulation Microbiology Date/Time Source Procedure Growth Status 06/26/16 11:15 Blood Blood Culture - Preliminary NO GROWTH AFTER 24 HOURS Resulted 06/26/16 10:00 Blood Blood Culture - Preliminary NO GROWTH AFTER 24 HOURS Resulted 06/26/16 21:00 Sputum Gram Stain - Final Resulted 06/26/16 21:00 Sputum Sputum Culture - Preliminary Resulted Laboratory Tests Test 06/28/16 05:00 06/28/16 08:25 White Blood Count 9.2 K/UL (4.8-10.8) Red Blood Count 3.00 M/UL (4.70-6.10) L Hemoglobin 8.9 G/DL (14.2-18.0) L Hematocrit 29.0 % (42.0-52.0) L Mean Corpuscular Volume 97 FL (80-99) Mean Corpuscular Hemoglobin 29.5 PG (27.0-31.0) Mean Corpuscular Hemoglobin Concent 30.5 G/DL (32.0-36.0) L Red Cell Distribution Width 15.8 % (11.6-14.8) H Platelet Count 256 K/UL (150-450) Mean Platelet Volume 5.9 FL (6.5-10.1) L Neutrophils (%) (Auto) 77.3 % (45.0-75.0) H Lymphocytes (%) (Auto) 10.7 % (20.0-45.0) L Monocytes (%) (Auto) 6.4 % (1.0-10.0) Eosinophils (%) (Auto) 5.2 % (0.0-3.0) H Basophils (%) (Auto) 0.4 % (0.0-2.0) Sodium Level 150 mEQ/L (135-145) H Potassium Level 4.4 mEQ/L (3.4-4.9) Chloride Level 112 mEQ/L (98-107) H Carbon Dioxide Level 23 mEQ/L (20-30) Anion Gap 15 (5-15) Blood Urea Nitrogen 71 mg/dL (7-23) H Creatinine 3.2 mg/dL (0.7-1.2) H Estimat Glomerular Filtration Rate mL/min (>60) Glucose Level 64 mg/dL (74-106) L Calcium Level 8.4 mg/dL (8.6-10.2) L Phosphorus Level 2.7 mg/dL (2.5-4.8) Magnesium Level 1.7 mg/dL (1.7-2.5) Total Bilirubin 0.3 mg/dL (0.0-1.2) Aspartate Amino Transf (AST/SGOT) 29 U/L (5-40) Alanine Aminotransferase (ALT/SGPT) 15 U/L (3-41) Alkaline Phosphatase 88 U/L (40-129) Total Protein 4.9 g/dL (6.6-8.7) L Albumin 1.9 g/dL (3.5-5.2) L Globulin 3.0 g/dL Albumin/Globulin Ratio 0.6 (1.0-2.7) L Arterial Blood pH 7.440 (7.350-7.450) Arterial Blood Partial Pressure CO2 35.9 mmHg (35.0-45.0) Arterial Blood Partial Pressure O2 88.4 mmHg (75.0-100.0) Arterial Blood HCO3 24.0 mmol/L (22.0-26.0) Arterial Blood Oxygen Saturation 96.5 % (92.0-98.0) Arterial Blood Base Excess 0.1 Adama Test Positive Current Medications Medications (Trade) Dose Ordered Sig/Koffi Route PRN Reason Start Time Stop Time Status Last Admin Dose Admin Acetaminophen (Tylenol) 650 mg Q4H PRN ORAL fever 06/23/16 10:30 07/23/16 10:29 06/28/16 12:33 Acetaminophen/ Hydrocodone Bitart (Redford 5/325) 1 tab Q4H PRN GT Moderate Pain (Pain Scale 4-6) 06/25/16 10:23 06/30/16 08:59 06/27/16 17:35 Clopidogrel Bisulfate (Plavix) 75 mg DAILY GT 06/25/16 10:22 07/23/16 08:59 06/28/16 08:47 Collagenase (Santyl) 1 applic DAILY TOPIC 06/23/16 09:00 07/23/16 08:59 06/28/16 08:48 Daptomycin 500 mg/ Sodium Chloride 55 ml @ 110 mls/hr Q48H IV 06/25/16 19:00 07/02/16 18:59 06/27/16 19:34 Dextrose (Dextrose 50%) STAT PRN IV Hypoglycemia 06/23/16 22:30 07/23/16 22:29 Docusate Sodium (Colace) 100 mg TID NG 2/9/17 09:00 07/24/16 08:59 06/28/16 12:31 Dopamine HCl/ Dextrose (DOPamine 400mg/ 250ml) 250 ml @ 0 mls/hr Q24H IV 06/24/16 16:15 07/24/16 16:14 06/24/16 17:56 Epoetin Mars (Procrit (for non ESRD use)) 7,000 units TUE-TUE-TUE SUBQ 06/23/16 21:00 07/23/16 20:59 06/25/16 21:13 Heparin Sodium/ Sodium Chloride 2000 unit 2,000 unit ONCE PRN INJ PICC PLACEMENT 06/25/16 13:15 06/28/16 23:59 Insulin Aspart (NovoLOG) EVERY 6 HOURS SUBQ 06/23/16 12:00 07/23/16 11:59 06/28/16 11:43 Lactobacillus Acidophilus (Culturelle) 1 tab THREE TIMES A DAY GT 06/25/16 10:23 07/23/16 08:59 06/28/16 12:31 Lidocaine HCl (Xylocaine 1% 30ml) 30 ml ONCE PRN INJ PICC PLACEMENT 06/25/16 13:15 06/28/16 23:59 Lorazepam (Ativan 2mg/ml 1ml) 0.5 mg Q4H PRN IV For Anxiety 06/23/16 10:30 06/30/16 10:29 06/28/16 10:22 Meropenem/Sodium Chloride (Merrem/Sodium Chloride) 110 ml @ 220 mls/hr Q12HR IVPB 06/25/16 21:00 06/30/16 20:59 06/28/16 08:48 Micafungin Sodium/ Sodium Chloride (Mycamine/Sodium Chloride) 110 ml @ 110 mls/hr Q24H IVPB 06/26/16 11:00 07/03/16 10:59 06/28/16 11:41 Morphine Sulfate (Morphine Sulfate) 1 mg Q4H PRN IVP Severe Pain (Pain Scale 7-10) 06/23/16 11:00 06/30/16 10:59 06/28/16 08:49 Mycophenolate Mofetil 500 mg 500 mg TWICE A DAY GT 06/25/16 10:24 07/23/16 08:59 06/28/16 08:59 Ondansetron HCl (Zofran) 4 mg Q6H PRN IVP Nausea & Vomiting 06/23/16 10:30 07/23/16 10:29 06/24/16 09:50 Pantoprazole (Protonix) 40 mg DAILY IVP 06/23/16 09:00 07/23/16 08:59 06/28/16 08:47 Polyethylene Glycol (Miralax) 17 gm DAILY PRN GT Constipation 06/25/16 10:23 07/23/16 08:59 Sodium Hypochlorite (Dakin's Full Strength) 1 applic DAILY TOPIC 06/23/16 09:00 07/23/16 08:59 06/28/16 08:48 Sodium Bicarbonate (Sodium Bicarbonate) 50 ml ONCE PRN IV PICC PLACEMENT 06/25/16 13:15 06/28/16 23:59 Tacrolimus (Prograf) 1 mg QHS ORAL 06/26/16 21:00 07/26/16 20:59 06/27/16 21:10 Tacrolimus 1 mg 1 mg DAILY@0800 ORAL 06/24/16 09:30 07/24/16 09:29 06/28/16 08:47 Zolpidem Tartrate (Ambien) 5 mg HSPRN PRN GT Insomnia 06/25/16 10:24 07/23/16 22:29 Jose Mott M.D. Jun 28, 2016 17:30
[2016-06-28] MEDS: Miralax 17gm pkt GT PRN (17:36)
[2016-06-28] MEDS: Epogen (for non ESRD use) SUBQ SCH (20:32)
[2016-06-29] VITALS (24 sets, daily range): BP systolic 84–155; BP diastolic 46–86
[2016-06-29] MEDS: LORazepam Inj 2mg/ml 1ml IV PRN (01:57)
[2016-06-29] MEDS ORDERED: NS 250 ML IVPB ONE (02:15)
[2016-06-29] MEDS: Morphine Sulfate 2mg/ml Inj IVP PRN (02:22)
[2016-06-29 05:47] LABS: MEAN CORPUSCULAR HEMOGLOBIN 29.8 PG (27.0-31.0); MEAN CORPUSCULAR HGB CONC 29.8 G/DL (32.0-36.0); MEAN CORPUSCULAR VOLUME 100 FL (80-99); MEAN PLATELET VOLUME 6.1 FL (6.5-10.1); PLATELET COUNT 242 K/UL (150-450); RED BLOOD COUNT 3.01 M/UL (4.70-6.10); RED CELL DISTRIBUTION WIDTH 15.3 % (11.6-14.8); WHITE BLOOD COUNT 9.3 K/UL (4.8-10.8)
[2016-06-29] MEDS: NovoLOG Insulin Flexpen SUBQ SCH ×4 (06:01→23:52)
[2016-06-29 07:02] LABS: ALANINE AMINOTRANSFERASE 17 U/L (3-41); ALBUMIN/GLOBULIN RATIO 0.6 (1.0-2.7); ANION GAP 16 (5-15); ASPARTATE AMINO TRANSFERASE 32 U/L (5-40); CALCIUM 8.2 mg/dL (8.6-10.2); CARBON DIOXIDE 21 mEQ/L (20-30); CHLORIDE 112 mEQ/L (98-107); CREATININE 3.2 mg/dL (0.7-1.2); CRP QUANT 21.3 mg/dL (< 0.5); HEMOLYSIS 4; MAGNESIUM 1.7 mg/dL (1.7-2.5); POTASSIUM 4.8 mEQ/L (3.4-4.9); SODIUM 149 mEQ/L (135-145); TOTAL PROTEIN 5.1 g/dL (6.6-8.7); URIC ACID 6.3 mg/dL (3.0-7.5)
--- NOTE | 2016-06-29 08:00 | Cardiology Progress Note ---
Assessment/Plan Assessment/Plan hyperkalemia due ro renal failure and over use of benicar (two time the upper limit of max does recommended) acute on chronic renal filure s/p heart tx dm with endorgan disease pvd obesity anemia htn acute reparatory failure and acidosis hypernatremia presumed pneumonia hypotension ?volume related tachy cardia ? voluem related i was called several time last ntie regarding tachy and hypotension ivf bolus ordered got ativan improved after 1 hour remain on the vent Prograf level sent agian this am received prbc tx a few lanre go would be tolerant of anemia since post transplant cr stabel echo ef 50-55% d/w rn not on pressor cxr personally reviewed again form 06/27 bnp non diagnostic in light of renal insuf presume pneumonia on abx na improved will need more ivf if has recurrent drop in bp or tachy prograf level to be sent today remains critical on duncan vent tele reviewed ekg today duration 45 min Subjective ROS Limited/Unobtainable: Yes Cardiovascular: Denies: chest pain Respiratory: Denies: shortness of breath Gastrointestinal/Abdominal: Denies: abdomen distended Subjective on a vent awake and responsive Objective Last 24 Hour Vital Signs Date Time Temp Pulse Resp B/P Pulse Ox O2 Delivery O2 Flow Rate FiO2 06/29/16 07:00 88 20 108/72 97 Mechanical Ventilator 40 06/29/16 06:58 96 15 40 06/29/16 06:00 85 20 106/56 96 Mechanical Ventilator 40 06/29/16 05:06 91 19 40 06/29/16 05:00 89 20 123/55 96 Mechanical Ventilator 40 06/29/16 04:00 98.9 94 20 94/52 96 Mechanical Ventilator 40 06/29/16 04:00 117 06/29/16 04:00 40 06/29/16 03:30 112 23 40 06/29/16 03:27 99.0 06/29/16 03:00 119 20 141/86 96 Mechanical Ventilator 40 06/29/16 02:00 122 20 84/63 98 Mechanical Ventilator 40 06/29/16 01:30 89 20 40 06/29/16 01:00 91 20 109/49 98 Mechanical Ventilator 40 06/29/16 00:00 85 06/29/16 00:00 98.7 85 19 122/53 96 Mechanical Ventilator 40 06/29/16 00:00 40 2/13/17 23:00 85 20 103/51 94 Mechanical Ventilator 40 06/28/16 22:48 87 20 40 06/28/16 22:00 86 20 131/58 96 Mechanical Ventilator 40 06/28/16 21:11 85 14 40 06/28/16 21:00 86 18 133/66 98 Mechanical Ventilator 40 06/28/16 20:00 81 06/28/16 20:00 40 06/28/16 20:00 98.7 85 19 127/64 97 Mechanical Ventilator 40 06/28/16 19:00 82 15 123/54 98 Mechanical Ventilator 40 06/28/16 18:42 81 16 40 06/28/16 18:00 80 15 125/57 98 Mechanical Ventilator 40 06/28/16 17:29 82 15 40 06/28/16 17:00 82 18 91/49 98 Mechanical Ventilator 40 06/28/16 16:15 106/48 06/28/16 16:00 85 06/28/16 16:00 97.8 84 19 93/48 97 Mechanical Ventilator 40 06/28/16 16:00 40 06/28/16 15:06 99.3 91 19 133/91 97 Mechanical Ventilator 40 06/28/16 15:02 94 27 40 06/28/16 14:10 90 22 133/62 99 Mechanical Ventilator 40 06/28/16 13:31 90 29 40 06/28/16 13:12 88 22 124/54 98 Mechanical Ventilator 40 06/28/16 12:44 89 06/28/16 12:00 100.2 89 21 133/66 97 Mechanical Ventilator 40 06/28/16 11:54 40 06/28/16 11:12 89 19 40 06/28/16 11:00 91 21 122/70 96 Mechanical Ventilator 40 06/28/16 10:00 88 19 128/55 97 Mechanical Ventilator 40 06/28/16 09:08 88 19 40 06/28/16 09:00 89 20 135/67 98 Mechanical Ventilator 40 06/28/16 08:00 88 06/28/16 08:00 99.3 89 19 123/58 100 Mechanical Ventilator 40 06/28/16 08:00 40 General Appearance: alert, on vent, patient on isolation Neck: supple Cardiovascular: normal rate, regular rhythm Respiratory/Chest: lungs clear - ant Abdomen: normal bowel sounds, non tender, soft Extremities: no swelling Intake and Output 06/28/16 06/29/16 19:00 07:00 Intake Total 1080 ml 720 ml Output Total 990 ml 1135 ml Balance 90 ml -415 ml Free Water 300 ml 100 ml IV Total 220 ml 110 ml Tube Feeding 480 ml 480 ml Other 80 ml 30 ml Output Urine Total 990 ml 1135 ml Laboratory Tests Test 06/28/16 08:25 06/29/16 04:45 Arterial Blood pH 7.440 (7.350-7.450) Arterial Blood Partial Pressure CO2 35.9 mmHg (35.0-45.0) Arterial Blood Partial Pressure O2 88.4 mmHg (75.0-100.0) Arterial Blood HCO3 24.0 mmol/L (22.0-26.0) Arterial Blood Oxygen Saturation 96.5 % (92.0-98.0) Arterial Blood Base Excess 0.1 Adama Test Positive White Blood Count 9.3 K/UL (4.8-10.8) Red Blood Count 3.01 M/UL (4.70-6.10) L Hemoglobin 9.0 G/DL (14.2-18.0) L Hematocrit 30.1 % (42.0-52.0) L Mean Corpuscular Volume 100 FL (80-99) H Mean Corpuscular Hemoglobin 29.8 PG (27.0-31.0) Mean Corpuscular Hemoglobin Concent 29.8 G/DL (32.0-36.0) L Red Cell Distribution Width 15.3 % (11.6-14.8) H Platelet Count 242 K/UL (150-450) Mean Platelet Volume 6.1 FL (6.5-10.1) L Neutrophils (%) (Auto) % (45.0-75.0) Lymphocytes (%) (Auto) % (20.0-45.0) Monocytes (%) (Auto) % (1.0-10.0) Eosinophils (%) (Auto) % (0.0-3.0) Basophils (%) (Auto) % (0.0-2.0) Sodium Level 149 mEQ/L (135-145) H Potassium Level 4.8 mEQ/L (3.4-4.9) Chloride Level 112 mEQ/L (98-107) H Carbon Dioxide Level 21 mEQ/L (20-30) Anion Gap 16 (5-15) H Blood Urea Nitrogen 77 mg/dL (7-23) H Creatinine 3.2 mg/dL (0.7-1.2) H Estimat Glomerular Filtration Rate mL/min (>60) Glucose Level 179 mg/dL (74-106) #H Uric Acid 6.3 mg/dL (3.0-7.5) Calcium Level 8.2 mg/dL (8.6-10.2) L Phosphorus Level 3.0 mg/dL (2.5-4.8) Magnesium Level 1.7 mg/dL (1.7-2.5) Total Bilirubin 0.2 mg/dL (0.0-1.2) Aspartate Amino Transf (AST/SGOT) 32 U/L (5-40) Alanine Aminotransferase (ALT/SGPT) 17 U/L (3-41) Alkaline Phosphatase 92 U/L (40-129) C-Reactive Protein, Quantitative 21.3 mg/dL (< 0.5) H Pro-B-Type Natriuretic Peptide 6090 pg/mL (0-450) H Total Protein 5.1 g/dL (6.6-8.7) L Albumin 2.0 g/dL (3.5-5.2) L Globulin 3.1 g/dL Albumin/Globulin Ratio 0.6 (1.0-2.7) L Microbiology Date/Time Source Procedure Growth Status 06/26/16 11:15 Blood Blood Culture - Preliminary NO GROWTH AFTER 48 HOURS Resulted 06/26/16 10:00 Blood Blood Culture - Preliminary NO GROWTH AFTER 48 HOURS Resulted 06/26/16 21:00 Sputum Gram Stain - Final Complete 06/26/16 21:00 Sputum Culture - Final Fany Albicans Complete HAILEE PATEL Jun 29, 2016 08:00
[2016-06-29 09:21] LABS: VARICELLA ZOSTER IGM ANTIBODY <0.91 index (0.00-0.90)
--- NOTE | 2016-06-29 09:22 | Pulmonolgy Critical Care Note ---
Critical Care - Asmt/Plan Problems: (1) Respiratory failure requiring intubation (2) Acute encephalopathy (3) ATN (acute tubular necrosis) (4) Sepsis (5) Decubitus skin ulcer Assessment & Plan: on hip, left and right tuberosity of pelvis, sacral area and scrotum stage 2 Respiratory: adjust tidal volume, adjust FIO2 Cardiac: start pressors, continue pressors Renal: keep IV fluid Infectious Disease: continue antibiotics Gastrointestinal: continue feedings/current rate, adjust feedings, start feedings Endocrine: monitor blood sugar, check HgA1C, continue sliding scale insulin Hematologic: monitor H/H, transfuse if hgb<8.5 Neurologic: PRN Morphine, keep patient comfortable Affect: PRN ativan Prophylaxis: Protonix, Heparin Time Spent (Minutes): 40 Notes Reviewed: turn sewer Discussed with: nurses, consultants, classification case managereducational manager - Objective Last 24 Hour Vital Signs Date Time Temp Pulse Resp B/P Pulse Ox O2 Delivery O2 Flow Rate FiO2 06/29/16 08:54 82 15 40 06/29/16 07:58 40 06/29/16 07:00 88 20 108/72 97 Mechanical Ventilator 40 06/29/16 06:58 96 15 40 06/29/16 06:00 85 20 106/56 96 Mechanical Ventilator 40 06/29/16 05:06 91 19 40 06/29/16 05:00 89 20 123/55 96 Mechanical Ventilator 40 06/29/16 04:00 98.9 94 20 94/52 96 Mechanical Ventilator 40 06/29/16 04:00 117 06/29/16 04:00 40 06/29/16 03:30 112 23 40 06/29/16 03:27 99.0 06/29/16 03:00 119 20 141/86 96 Mechanical Ventilator 40 06/29/16 02:00 122 20 84/63 98 Mechanical Ventilator 40 06/29/16 01:30 89 20 40 06/29/16 01:00 91 20 109/49 98 Mechanical Ventilator 40 06/29/16 00:00 85 06/29/16 00:00 98.7 85 19 122/53 96 Mechanical Ventilator 40 06/29/16 00:00 40 06/28/16 23:00 85 20 103/51 94 Mechanical Ventilator 40 06/28/16 22:48 87 20 40 06/28/16 22:00 86 20 131/58 96 Mechanical Ventilator 40 06/28/16 21:11 85 14 40 06/28/16 21:00 86 18 133/66 98 Mechanical Ventilator 40 06/28/16 20:00 81 06/28/16 20:00 40 06/28/16 20:00 98.7 85 19 127/64 97 Mechanical Ventilator 40 06/28/16 19:00 82 15 123/54 98 Mechanical Ventilator 40 06/28/16 18:42 81 16 40 06/28/16 18:00 80 15 125/57 98 Mechanical Ventilator 40 06/28/16 17:29 82 15 40 06/28/16 17:00 82 18 91/49 98 Mechanical Ventilator 40 06/28/16 16:15 106/48 06/28/16 16:00 85 06/28/16 16:00 97.8 84 19 93/48 97 Mechanical Ventilator 40 06/28/16 16:00 40 06/28/16 15:06 99.3 91 19 133/91 97 Mechanical Ventilator 40 06/28/16 15:02 94 27 40 06/28/16 14:10 90 22 133/62 99 Mechanical Ventilator 40 06/28/16 13:31 90 29 40 06/28/16 13:12 88 22 124/54 98 Mechanical Ventilator 40 06/28/16 12:44 89 06/28/16 12:00 100.2 89 21 133/66 97 Mechanical Ventilator 40 06/28/16 11:54 40 06/28/16 11:12 89 19 40 06/28/16 11:00 91 21 122/70 96 Mechanical Ventilator 40 06/28/16 10:00 88 19 128/55 97 Mechanical Ventilator 40 Status: awake Condition: critical, improving HEENT: atraumatic Neck: full ROM Lungs: clear Heart: HR/BP stable, HR/BP unstable Abdomen: soft, non-tender, feeding tube Extremities: edema Decubiti: location Micro: Microbiology Date/Time Source Procedure Growth Status 06/26/16 11:15 Blood Blood Culture - Preliminary NO GROWTH AFTER 48 HOURS Resulted 06/26/16 10:00 Blood Blood Culture - Preliminary NO GROWTH AFTER 48 HOURS Resulted 06/26/16 21:00 Sputum Gram Stain - Final Complete 06/26/16 21:00 Sputum Culture - Final Fany Albicans Complete Accucheck: 162 Critical Care - Subjective ROS Limited/Unobtainable: No ICU Day: 7 Intubation Day: 7 Interval Events: pt had an episode of seizures early this morning witnessed by nurses. He was able to tolerate weaning around 15 minutes yesterday. Condition: critical EKG Rhythm: Sinus Rhythm FI02: 40 Vent Support Breath Rate: 15 Vent Support Mode: AC Vent Tidal Volume: 600 Sputum Amount: Moderate PEEP: 5.0 PIP: 34 Secretions: small Tube Feeding Amount: 40 I&O: Intake and Output 06/28/16 06/29/16 19:00 07:00 Intake Total 1080 ml 720 ml Output Total 990 ml 1135 ml Balance 90 ml -415 ml Free Water 300 ml 100 ml IV Total 220 ml 110 ml Tube Feeding 480 ml 480 ml Other 80 ml 30 ml Output Urine Total 990 ml 1135 ml CXR: ET in good position. No changes ET-Tube: 8.0 ET Position: 26 Labs: Laboratory Tests Test 06/29/16 04:45 White Blood Count 9.3 K/UL (4.8-10.8) Red Blood Count 3.01 M/UL (4.70-6.10) L Hemoglobin 9.0 G/DL (14.2-18.0) L Hematocrit 30.1 % (42.0-52.0) L Mean Corpuscular Volume 100 FL (80-99) H Mean Corpuscular Hemoglobin 29.8 PG (27.0-31.0) Mean Corpuscular Hemoglobin Concent 29.8 G/DL (32.0-36.0) L Red Cell Distribution Width 15.3 % (11.6-14.8) H Platelet Count 242 K/UL (150-450) Mean Platelet Volume 6.1 FL (6.5-10.1) L Neutrophils (%) (Auto) % (45.0-75.0) Lymphocytes (%) (Auto) % (20.0-45.0) Monocytes (%) (Auto) % (1.0-10.0) Eosinophils (%) (Auto) % (0.0-3.0) Basophils (%) (Auto) % (0.0-2.0) Miscellaneous Test 2 Pending Sodium Level 149 mEQ/L (135-145) H Potassium Level 4.8 mEQ/L (3.4-4.9) Chloride Level 112 mEQ/L (98-107) H Carbon Dioxide Level 21 mEQ/L (20-30) Anion Gap 16 (5-15) H Blood Urea Nitrogen 77 mg/dL (7-23) H Creatinine 3.2 mg/dL (0.7-1.2) H Estimat Glomerular Filtration Rate mL/min (>60) Glucose Level 179 mg/dL (74-106) #H Uric Acid 6.3 mg/dL (3.0-7.5) Calcium Level 8.2 mg/dL (8.6-10.2) L Phosphorus Level 3.0 mg/dL (2.5-4.8) Magnesium Level 1.7 mg/dL (1.7-2.5) Total Bilirubin 0.2 mg/dL (0.0-1.2) Aspartate Amino Transf (AST/SGOT) 32 U/L (5-40) Alanine Aminotransferase (ALT/SGPT) 17 U/L (3-41) Alkaline Phosphatase 92 U/L (40-129) C-Reactive Protein, Quantitative 21.3 mg/dL (< 0.5) H Pro-B-Type Natriuretic Peptide 6090 pg/mL (0-450) H Total Protein 5.1 g/dL (6.6-8.7) L Albumin 2.0 g/dL (3.5-5.2) L Globulin 3.1 g/dL Albumin/Globulin Ratio 0.6 (1.0-2.7) L AMADO SCHULER Jun 29, 2016 09:22
[2016-06-29 09:32] LABS: ABG ALLEN TEST POSITIVE; ABG BASE EXCESS -0.8; ABG PCO2 35.2 mmHg (35.0-45.0)
[2016-06-29] MEDS: Docusate 100mg tablet NG SCH ×3 (09:34→18:28)
[2016-06-29] MEDS: Lactobacillus-GG tablet GT SCH ×3 (09:34→18:28)
[2016-06-29] MEDS: Mycophenolate 250mg cap GT SCH ×2 (09:34→18:28)
[2016-06-29] MEDS: Dakin's 0.5% (Full Strength) 16oz TOPIC SCH (09:34)
[2016-06-29] MEDS: Meropenem 500 MG in NS 110 ML IVPB SCH ×2 (09:35→21:04)
[2016-06-29] MEDS: Pantoprazole Inj IVP SCH (09:35)
--- NOTE | 2016-06-29 10:36 | General Progress Note ---
Assessment/Plan Status: unchanged Status Narrative Cr stable Assessment/Plan status: Acute Renal Failure- Cr stable Acute respiratory failure- septic shock , metabolic acidosis Superimposed on CRI due to DM / HTN PVD s/p amputation- Severe Anemia s/p Heart transplant sacral decub plan: weaning in process transfused slow Hydrate- free water, D5 watch CHF Sxs wound care- monitor renal parameters- optimize cardiac and pulm status- wean as possible. avoid nephrotoxics per ID and cardiology discussed with RN Subjective ROS Limited/Unobtainable: Yes Allergies: Coded Allergies: ADHESIVE TAPE (Verified Allergy, Unknown, Rash, 05/27/16) PLASTIC TAPE-COPIED FROM UNCODED SECTION PENICILLINS (Verified Allergy, Unknown, 06/20/16) PROCAINE (Verified Allergy, Unknown, Rash, 08/19/14) COPIED FRON UNCODED Objective Last 24 Hour Vital Signs Date Time Temp Pulse Resp B/P Pulse Ox O2 Delivery O2 Flow Rate FiO2 06/29/16 09:24 40 06/29/16 08:54 82 15 40 06/29/16 08:00 84 06/29/16 07:58 40 06/29/16 07:00 88 20 108/72 97 Mechanical Ventilator 40 06/29/16 06:58 96 15 40 06/29/16 06:00 85 20 106/56 96 Mechanical Ventilator 40 06/29/16 05:06 91 19 40 06/29/16 05:00 89 20 123/55 96 Mechanical Ventilator 40 06/29/16 04:00 98.9 94 20 94/52 96 Mechanical Ventilator 40 06/29/16 04:00 117 06/29/16 04:00 40 06/29/16 03:30 112 23 40 06/29/16 03:27 99.0 06/29/16 03:00 119 20 141/86 96 Mechanical Ventilator 40 06/29/16 02:00 122 20 84/63 98 Mechanical Ventilator 40 06/29/16 01:30 89 20 40 06/29/16 01:00 91 20 109/49 98 Mechanical Ventilator 40 06/29/16 00:00 85 06/29/16 00:00 98.7 85 19 122/53 96 Mechanical Ventilator 40 06/29/16 00:00 40 06/28/16 23:00 85 20 103/51 94 Mechanical Ventilator 40 06/28/16 22:48 87 20 40 06/28/16 22:00 86 20 131/58 96 Mechanical Ventilator 40 06/28/16 21:11 85 14 40 06/28/16 21:00 86 18 133/66 98 Mechanical Ventilator 40 06/28/16 20:00 81 06/28/16 20:00 40 06/28/16 20:00 98.7 85 19 127/64 97 Mechanical Ventilator 40 06/28/16 19:00 82 15 123/54 98 Mechanical Ventilator 40 06/28/16 18:42 81 16 40 06/28/16 18:00 80 15 125/57 98 Mechanical Ventilator 40 06/28/16 17:29 82 15 40 06/28/16 17:00 82 18 91/49 98 Mechanical Ventilator 40 06/28/16 16:15 106/48 06/28/16 16:00 85 06/28/16 16:00 97.8 84 19 93/48 97 Mechanical Ventilator 40 06/28/16 16:00 40 06/28/16 15:06 99.3 91 19 133/91 97 Mechanical Ventilator 40 06/28/16 15:02 94 27 40 06/28/16 14:10 90 22 133/62 99 Mechanical Ventilator 40 06/28/16 13:31 90 29 40 06/28/16 13:12 88 22 124/54 98 Mechanical Ventilator 40 06/28/16 12:44 89 06/28/16 12:00 100.2 89 21 133/66 97 Mechanical Ventilator 40 06/28/16 11:54 40 06/28/16 11:12 89 19 40 06/28/16 11:00 91 21 122/70 96 Mechanical Ventilator 40 Intake and Output 06/28/16 06/29/16 19:00 07:00 Intake Total 1080 ml 720 ml Output Total 990 ml 1135 ml Balance 90 ml -415 ml Free Water 300 ml 100 ml IV Total 220 ml 110 ml Tube Feeding 480 ml 480 ml Other 80 ml 30 ml Output Urine Total 990 ml 1135 ml Laboratory Tests 06/29/16 04:45: White Blood Count 9.3, Red Blood Count 3.01L, Hemoglobin 9.0L, Hematocrit 30.1L , Mean Corpuscular Volume 100H, Mean Corpuscular Hemoglobin 29.8, Mean Corpuscular Hemoglobin Concent 29.8L, Red Cell Distribution Width 15.3H, Platelet Count 242, Mean Platelet Volume 6.1L, Neutrophils (%) (Auto) , Lymphocytes (%) (Auto) , Monocytes (%) (Auto) , Eosinophils (%) (Auto) , Basophils (%) (Auto) , Miscellaneous Test 2 [Pending], Sodium Level 149H, Potassium Level 4.8, Chloride Level 112H, Carbon Dioxide Level 21, Anion Gap 16H , Blood Urea Nitrogen 77H, Creatinine 3.2H, Estimat Glomerular Filtration Rate , Glucose Level 179#H, Uric Acid 6.3, Calcium Level 8.2L, Phosphorus Level 3.0, Magnesium Level 1.7, Total Bilirubin 0.2, Aspartate Amino Transf (AST/SGOT) 32, Alanine Aminotransferase (ALT/SGPT) 17, Alkaline Phosphatase 92, C-Reactive Protein, Quantitative 21.3H, Pro-B-Type Natriuretic Peptide 6090H, Total Protein 5.1L, Albumin 2.0L, Globulin 3.1, Albumin/Globulin Ratio 0.6L 06/29/16 09:00: Arterial Blood pH 7.434, Arterial Blood Partial Pressure CO2 35.2, Arterial Blood Partial Pressure O2 88.4, Arterial Blood HCO3 23.1, Arterial Blood Oxygen Saturation 96.5, Arterial Blood Base Excess -0.8, Adama Test Positive Height (Feet): 5 Height (Inches): 8.00 Weight (Pounds): 193 General Appearance: no apparent distress Cardiovascular: normal rate Respiratory/Chest: decreased breath sounds Abdomen: distended Objective no other changes in PE BRIJESH CALDERON Jun 29, 2016 10:36
[2016-06-29] MEDS: Micafungin 100 MG in NS 110 ML IVPB SCH (11:12)
--- NOTE | 2016-06-29 12:56 | Diagnostic Imaging Report ---
Indication: DYSPNEA Technique: One view of the chest Comparison: 06/27/2016 Findings: Diffuse interstitial congestive changes, mild cardiomegaly persists. Stable satisfactory positions of endotracheal tube and right arm PICC. Indeterminate position of nasogastric tube, obscured by soft tissue. Findings are overall unchanged Impression: Unchanged, over one day, findings as above.
--- NOTE | 2016-06-29 12:57 | Diagnostic Imaging Report ---
Indications: DYSPNEA Technique: Portable AP chest Findings: Comparison: 06/28/16 Pulmonary inflation has improved. Pulmonary vascular redistribution, bilateral interstitial infiltrates persist, unchanged to slightly improved. The lungs pleural abnormality. Cardiomediastinal silhouette stable. Lines and tubes remain in place. IMPRESSION: Stable to slightly improved bilateral congestive changes compared to one day prior.
[2016-06-29 13:55] LABS: PARVOVIRUS B-19 ANTIBODY IGM 0.1 index (0.0-0.8)
--- NOTE | 2016-06-29 14:53 | Cardiology Report ---
APPROVED REPORT EKG Measurement Heart [id number] Normal sinus rhythm Low voltage QRS Cannot rule out Anterior infarct, age undetermined Abnormal ECG
[2016-06-29] MEDS: DOPamine 400mg/250ml 250 ML IV SCH (16:15)
[2016-06-29] MEDS ORDERED: NS 275ml ONE ×2 (17:59→18:35)
[2016-06-29] MEDS ORDERED: Tubing IV Secondary IV ONE ×2 (17:59→18:35)
[2016-06-29] MEDS ORDERED: Sterile Water Irrig 1000ml IRRIG ONE (18:35)
[2016-06-29] MEDS: DAPTOmycin 500 MG in NS 55 ML IV SCH (18:35)
--- NOTE | 2016-06-29 20:59 | Infectious Diseases Prog Note ---
Assessment/Plan Problems: (1) Sepsis Assessment & Plan: improving , on daptomycin ,meropenem , and micafungin , repeated blood culture is negative , and sputum culture grew junaid albicans only which is most likely colonization and not real. will continue current regimen for now pending further culture results. recommend transfer to [facility] for higher level of care and to be monitored by the transplant team too. 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 continue local wound care , and off loading. (4) Anemia Assessment & Plan: S/P blood transfusion, monitor H&H, need to rule out GI source, recommend GI consult. (5) PVD (peripheral vascular disease) Assessment & Plan: S/P B/L AKA. (6) CKD (chronic kidney disease) Assessment & Plan: avoid nephrotoxic meds, monitor UOP, and renal function, renal is following (7) Heart transplant status Assessment & Plan: recommend to communicate with his heart transplant team at [facility] for further recommendation, and possible transfer to [facility] for higher level of care, continue transplant meds , and adjust as per his GFR. cardiology is following Subjective ROS Limited/Unobtainable: Yes Allergies: Coded Allergies: ADHESIVE TAPE (Verified Allergy, Unknown, Rash, 05/27/16) PLASTIC TAPE-COPIED FROM UNCODED SECTION PENICILLINS (Verified Allergy, Unknown, 06/20/16) PROCAINE (Verified Allergy, Unknown, Rash, 08/19/14) COPIED FRON UNCODED Subjective he is still intubated on mechanical ventilation but more awake and coherent, no fever , no diarrhea, with less secretions. Objective Vital Signs Last 24 Hour Vital Signs Date Time Temp Pulse Resp B/P Pulse Ox O2 Delivery O2 Flow Rate FiO2 06/29/16 20:00 98.7 78 16 129/53 98 Mechanical Ventilator 40 2/14/17 20:00 40 06/29/16 20:00 78 06/29/16 19:13 80 26 40 06/29/16 19:00 77 16 116/53 97 Mechanical Ventilator 40 06/29/16 18:00 80 18 103/46 98 Mechanical Ventilator 40 06/29/16 17:25 84 23 40 06/29/16 17:00 87 21 139/63 98 Mechanical Ventilator 40 06/29/16 16:15 106/50 06/29/16 16:00 81 06/29/16 16:00 98.9 85 23 106/50 96 Mechanical Ventilator 40 06/29/16 16:00 40 06/29/16 15:09 77 20 40 06/29/16 15:00 80 21 104/52 98 Mechanical Ventilator 40 06/29/16 14:00 87 21 105/59 100 Mechanical Ventilator 40 06/29/16 13:26 95 36 40 06/29/16 13:00 94 20 142/73 94 Mechanical Ventilator 40 06/29/16 12:00 99.0 95 23 116/64 95 Mechanical Ventilator 40 06/29/16 12:00 40 06/29/16 12:00 82 06/29/16 11:00 84 20 131/68 94 Mechanical Ventilator 40 06/29/16 10:51 84 31 40 06/29/16 10:00 86 26 116/62 96 Mechanical Ventilator 40 06/29/16 09:24 40 06/29/16 09:00 82 15 113/63 97 Mechanical Ventilator 40 06/29/16 08:54 82 15 40 06/29/16 08:00 84 06/29/16 08:00 97.8 88 16 96/51 97 Mechanical Ventilator 40 06/29/16 07:58 40 06/29/16 07:00 88 20 108/72 97 Mechanical Ventilator 40 06/29/16 06:58 96 15 40 06/29/16 06:00 85 20 106/56 96 Mechanical Ventilator 40 06/29/16 05:06 91 19 40 06/29/16 05:00 89 20 123/55 96 Mechanical Ventilator 40 06/29/16 04:00 98.9 94 20 94/52 96 Mechanical Ventilator 40 06/29/16 04:00 117 06/29/16 04:00 40 06/29/16 03:30 112 23 40 06/29/16 03:27 99.0 06/29/16 03:00 119 20 141/86 96 Mechanical Ventilator 40 06/29/16 02:00 122 20 84/63 98 Mechanical Ventilator 40 06/29/16 01:30 89 20 40 06/29/16 01:00 91 20 109/49 98 Mechanical Ventilator 40 06/29/16 00:00 85 06/29/16 00:00 98.7 85 19 122/53 96 Mechanical Ventilator 40 06/29/16 00:00 40 06/28/16 23:00 85 20 103/51 94 Mechanical Ventilator 40 06/28/16 22:48 87 20 40 06/28/16 22:00 86 20 131/58 96 Mechanical Ventilator 40 06/28/16 21:11 85 14 40 06/28/16 21:00 86 18 133/66 98 Mechanical Ventilator 40 Height (Feet): 5 Height (Inches): 8.00 Weight (Pounds): 193 General Appearance: WD/WN, no acute distress HEENT: normocephalic, atraumatic, anicteric, mucous membranes moist, PERRL, EOMI, no JVD Respiratory/Chest: chest wall non-tender, normal breath sounds, no respiratory distress, no accessory muscle use, decreased breath sounds, crackles/rales Cardiovascular: normal peripheral pulses, normal rate, regular rhythm, no gallop/murmur, no JVD Abdomen: normal bowel sounds, soft, non tender, no organomegaly, no mass, no scars, hypoactive bowel sounds, distended Extremities: no cyanosis Skin: no rash, no lesions, ulcers Microbiology Date/Time Source Procedure Growth Status 06/26/16 21:00 Sputum Gram Stain - Final Complete 06/26/16 21:00 Sputum Culture - Final Junaid Albicans Complete Laboratory Tests Test 06/29/16 04:45 06/29/16 09:00 White Blood Count 9.3 K/UL (4.8-10.8) Red Blood Count 3.01 M/UL (4.70-6.10) L Hemoglobin 9.0 G/DL (14.2-18.0) L Hematocrit 30.1 % (42.0-52.0) L Mean Corpuscular Volume 100 FL (80-99) H Mean Corpuscular Hemoglobin 29.8 PG (27.0-31.0) Mean Corpuscular Hemoglobin Concent 29.8 G/DL (32.0-36.0) L Red Cell Distribution Width 15.3 % (11.6-14.8) H Platelet Count 242 K/UL (150-450) Mean Platelet Volume 6.1 FL (6.5-10.1) L Neutrophils (%) (Auto) % (45.0-75.0) Lymphocytes (%) (Auto) % (20.0-45.0) Monocytes (%) (Auto) % (1.0-10.0) Eosinophils (%) (Auto) % (0.0-3.0) Basophils (%) (Auto) % (0.0-2.0) Miscellaneous Test 2 Pending Sodium Level 149 mEQ/L (135-145) H Potassium Level 4.8 mEQ/L (3.4-4.9) Chloride Level 112 mEQ/L (98-107) H Carbon Dioxide Level 21 mEQ/L (20-30) Anion Gap 16 (5-15) H Blood Urea Nitrogen 77 mg/dL (7-23) H Creatinine 3.2 mg/dL (0.7-1.2) H Estimat Glomerular Filtration Rate mL/min (>60) Glucose Level 179 mg/dL (74-106) #H Uric Acid 6.3 mg/dL (3.0-7.5) Calcium Level 8.2 mg/dL (8.6-10.2) L Phosphorus Level 3.0 mg/dL (2.5-4.8) Magnesium Level 1.7 mg/dL (1.7-2.5) Total Bilirubin 0.2 mg/dL (0.0-1.2) Aspartate Amino Transf (AST/SGOT) 32 U/L (5-40) Alanine Aminotransferase (ALT/SGPT) 17 U/L (3-41) Alkaline Phosphatase 92 U/L (40-129) C-Reactive Protein, Quantitative 21.3 mg/dL (< 0.5) H Pro-B-Type Natriuretic Peptide 6090 pg/mL (0-450) H Total Protein 5.1 g/dL (6.6-8.7) L Albumin 2.0 g/dL (3.5-5.2) L Globulin 3.1 g/dL Albumin/Globulin Ratio 0.6 (1.0-2.7) L Arterial Blood pH 7.434 (7.350-7.450) Arterial Blood Partial Pressure CO2 35.2 mmHg (35.0-45.0) Arterial Blood Partial Pressure O2 88.4 mmHg (75.0-100.0) Arterial Blood HCO3 23.1 mmol/L (22.0-26.0) Arterial Blood Oxygen Saturation 96.5 % (92.0-98.0) Arterial Blood Base Excess -0.8 Adama Test Positive Current Medications Medications (Trade) Dose Ordered Sig/Koffi Route PRN Reason Start Time Stop Time Status Last Admin Dose Admin Acetaminophen (Tylenol) 650 mg Q4H PRN ORAL fever 06/23/16 10:30 07/23/16 10:29 06/29/16 02:23 Acetaminophen/ Hydrocodone Bitart ([place] 5/325) 1 tab Q4H PRN GT Moderate Pain (Pain Scale 4-6) 06/25/16 10:23 06/30/16 08:59 06/27/16 17:35 Clopidogrel Bisulfate (Plavix) 75 mg DAILY GT 06/25/16 10:22 07/23/16 08:59 06/29/16 09:35 Collagenase (Santyl) 1 applic DAILY TOPIC 06/23/16 09:00 07/23/16 08:59 06/29/16 09:50 Daptomycin 500 mg/ Sodium Chloride 55 ml @ 110 mls/hr Q48H IV 06/25/16 19:00 07/02/16 18:59 06/29/16 18:35 Dextrose (Dextrose 50%) STAT PRN IV Hypoglycemia 06/23/16 22:30 07/23/16 22:29 Docusate Sodium (Colace) 100 mg TID NG 06/24/16 09:00 07/24/16 08:59 06/29/16 18:28 Dopamine HCl/ Dextrose (DOPamine 400mg/ 250ml) 250 ml @ 0 mls/hr Q24H IV 06/24/16 16:15 07/24/16 16:14 06/24/16 17:56 Epoetin Mars (Procrit (for non ESRD use)) 7,000 units MON-WED-FRI SUBQ 06/23/16 21:00 07/23/16 20:59 06/28/16 20:32 Insulin Aspart (NovoLOG) EVERY 6 HOURS SUBQ 06/23/16 12:00 07/23/16 11:59 06/29/16 18:30 Lactobacillus Acidophilus (Culturelle) 1 tab THREE TIMES A DAY GT 06/25/16 10:23 07/23/16 08:59 06/29/16 18:28 Lorazepam (Ativan 2mg/ml 1ml) 0.5 mg Q4H PRN IV For Anxiety 06/23/16 10:30 06/30/16 10:29 06/29/16 01:57 Meropenem 500 mg/ Sodium Chloride 110 ml @ 220 mls/hr Q12HR IVPB 06/25/16 21:00 07/04/16 20:59 06/29/16 09:35 Micafungin Sodium/ Sodium Chloride (Mycamine/Sodium Chloride) 110 ml @ 110 mls/hr Q24H IVPB 06/26/16 11:00 07/03/16 10:59 06/29/16 11:12 Morphine Sulfate (Morphine Sulfate) 1 mg Q4H PRN IVP Severe Pain (Pain Scale 7-10) 06/23/16 11:00 06/30/16 10:59 06/29/16 02:22 Mycophenolate Mofetil 500 mg 500 mg TWICE A DAY GT 06/25/16 10:24 07/23/16 08:59 06/29/16 18:28 Ondansetron HCl (Zofran) 4 mg Q6H PRN IVP Nausea & Vomiting 06/23/16 10:30 07/23/16 10:29 06/24/16 09:50 Pantoprazole (Protonix) 40 mg DAILY IVP 06/23/16 09:00 07/23/16 08:59 06/29/16 09:35 Polyethylene Glycol (Miralax) 17 gm DAILY PRN GT Constipation 06/25/16 10:23 07/23/16 08:59 06/28/16 17:36 Sodium Hypochlorite (Dakin's Full Strength) 1 applic DAILY TOPIC 06/23/16 09:00 07/23/16 08:59 06/29/16 09:34 Tacrolimus (Prograf) 1 mg QHS ORAL 06/26/16 21:00 07/26/16 20:59 06/28/16 20:32 Tacrolimus 1 mg 1 mg DAILY@0800 ORAL 06/24/16 09:30 07/24/16 09:29 06/29/16 09:34 Zolpidem Tartrate (Ambien) 5 mg HSPRN PRN GT Insomnia 06/25/16 10:24 07/23/16 22:29 Jose Mott M.D. Jun 29, 2016 20:59
[2016-06-29] MEDS: Miralax 17gm pkt GT PRN (22:42)
[2016-06-30] VITALS (24 sets, daily range): BP systolic 93–159; BP diastolic 56–89
[2016-06-30] MEDS: LORazepam Inj 2mg/ml 1ml IV PRN ×2 (00:04→18:01)
[2016-06-30] MEDS: Morphine Sulfate 2mg/ml Inj IVP PRN (01:04)
[2016-06-30 05:08] LABS: BASOPHILS % (AUTO) 1.3 % (0.0-2.0); LYMPHOCYTES % (AUTO) 10.6 % (20.0-45.0); MEAN CORPUSCULAR HEMOGLOBIN 29.6 PG (27.0-31.0); MEAN CORPUSCULAR HGB CONC 29.5 G/DL (32.0-36.0); MEAN CORPUSCULAR VOLUME 100 FL (80-99); MEAN PLATELET VOLUME 5.6 FL (6.5-10.1); MONOCYTES % (AUTO) 3.1 % (1.0-10.0); NEUTROPHILS % (AUTO) 79.9 % (45.0-75.0); PLATELET COUNT 238 K/UL (150-450); RED CELL DISTRIBUTION WIDTH 15.4 % (11.6-14.8); WHITE BLOOD COUNT 8.1 K/UL (4.8-10.8)
[2016-06-30 05:32] LABS: ALANINE AMINOTRANSFERASE 17 U/L (3-41); ALBUMIN/GLOBULIN RATIO 0.6 (1.0-2.7); ANION GAP 15 (5-15); ASPARTATE AMINO TRANSFERASE 29 U/L (5-40); CALCIUM 8.4 mg/dL (8.6-10.2); CARBON DIOXIDE 23 mEQ/L (20-30); CHLORIDE 115 mEQ/L (98-107); HEMOLYSIS 2; MAGNESIUM 1.6 mg/dL (1.7-2.5); POTASSIUM 4.8 mEQ/L (3.4-4.9); SODIUM 153 mEQ/L (135-145)
[2016-06-30 05:44] LABS: TROPONIN I < 0.30 ng/mL (<=0.30)
[2016-06-30] MEDS: NovoLOG Insulin Flexpen SUBQ SCH ×4 (06:07→23:55)
[2016-06-30] MEDS: Docusate 100mg tablet NG SCH ×3 (08:14→17:45)
[2016-06-30] MEDS: Mycophenolate 250mg cap GT SCH ×2 (08:14→17:44)
[2016-06-30] MEDS: Lactobacillus-GG tablet GT SCH ×3 (08:14→17:45)
[2016-06-30] MEDS: Meropenem 500 MG in NS 110 ML IVPB SCH ×2 (08:14→20:36)
[2016-06-30] MEDS: Pantoprazole Inj IVP SCH (08:15)
[2016-06-30] MEDS: Dakin's 0.5% (Full Strength) 16oz TOPIC SCH (08:16)
[2016-06-30 10:06] LABS: ABG PCO2 52.3 mmHg (35.0-45.0)
[2016-06-30 10:07] LABS: ABG ALLEN TEST POSITIVE; ABG BASE EXCESS 0.7
--- NOTE | 2016-06-30 10:38 | Pulmonolgy Critical Care Note ---
Critical Care - Asmt/Plan Problems: (1) Respiratory failure requiring intubation (2) Acute encephalopathy (3) ATN (acute tubular necrosis) (4) Sepsis (5) Decubitus skin ulcer Assessment & Plan: on hip, left and right tuberosity of pelvis, sacral area and scrotum stage 2 Respiratory: monitor respiratory rate, adjust FIO2, CXR, weaning trial, other - weaned for 90 minutes, the first hour he was doing ok, then his respiratory rate tom. 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, 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, consultants, corrections caseworkerglobal implementation manager - Objective Last 24 Hour Vital Signs Date Time Temp Pulse Resp B/P Pulse Ox O2 Delivery O2 Flow Rate FiO2 06/30/16 10:23 40 06/30/16 10:00 101 24 135/89 100 Mechanical Ventilator 40 06/30/16 09:00 99 22 111/76 100 Mechanical Ventilator 40 06/30/16 08:50 40 06/30/16 08:49 86 29 40 06/30/16 08:48 100 06/30/16 08:00 40 06/30/16 08:00 99.5 87 22 117/66 99 Mechanical Ventilator 40 06/30/16 08:00 87 06/30/16 07:00 120 22 102/61 97 Mechanical Ventilator 40 06/30/16 06:56 90 15 40 06/30/16 06:00 110 20 99/61 97 Mechanical Ventilator 40 06/30/16 05:15 95 20 40 06/30/16 05:00 125 17 129/68 97 Mechanical Ventilator 40 06/30/16 04:00 40 06/30/16 04:00 99.4 115 21 113/86 98 Mechanical Ventilator 40 06/30/16 04:00 95 06/30/16 03:11 91 19 40 06/30/16 03:00 114 17 99/65 97 Mechanical Ventilator 40 06/30/16 02:00 89 17 94/64 97 Mechanical Ventilator 40 06/30/16 01:31 105 28 40 06/30/16 01:30 40 06/30/16 01:05 105 25 40 06/30/16 01:00 103 17 159/83 97 Mechanical Ventilator 40 06/30/16 00:00 98.9 104 18 156/79 97 Mechanical Ventilator 40 06/30/16 00:00 40 06/30/16 00:00 92 06/29/16 23:03 87 23 40 06/29/16 23:00 89 17 155/71 97 Mechanical Ventilator 40 06/29/16 22:00 88 26 109/73 97 Mechanical Ventilator 40 06/29/16 21:13 81 28 40 06/29/16 21:00 81 26 113/55 99 Mechanical Ventilator 40 06/29/16 20:00 98.7 78 16 129/53 98 Mechanical Ventilator 40 06/29/16 20:00 40 06/29/16 20:00 78 06/29/16 19:13 80 26 40 06/29/16 19:00 77 16 116/53 97 Mechanical Ventilator 40 06/29/16 18:00 80 18 103/46 98 Mechanical Ventilator 40 06/29/16 17:25 84 23 40 06/29/16 17:00 87 21 139/63 98 Mechanical Ventilator 40 06/29/16 16:15 106/50 06/29/16 16:00 81 06/29/16 16:00 98.9 85 23 106/50 96 Mechanical Ventilator 40 06/29/16 16:00 40 06/29/16 15:09 77 20 40 06/29/16 15:00 80 21 104/52 98 Mechanical Ventilator 40 06/29/16 14:00 87 21 105/59 100 Mechanical Ventilator 40 06/29/16 13:26 95 36 40 06/29/16 13:00 94 20 142/73 94 Mechanical Ventilator 40 06/29/16 12:00 99.0 95 23 116/64 95 Mechanical Ventilator 40 06/29/16 12:00 40 06/29/16 12:00 82 06/29/16 11:00 84 20 131/68 94 Mechanical Ventilator 40 06/29/16 10:51 84 31 40 Status: awake Condition: critical HEENT: atraumatic Neck: full ROM Lungs: chest wall tender Heart: HR/BP stable Abdomen: soft, active bowel sounds Extremities: no C/C/E Decubiti: location Accucheck: 171 Critical Care - Subjective ROS Limited/Unobtainable: No ICU Day: 8 Intubation Day: 8 Condition: critical EKG Rhythm: Sinus Rhythm FI02: 40 Vent Support Breath Rate: 15 Vent Support Mode: AC Vent Tidal Volume: 600 Sputum Amount: Moderate PEEP: 5.0 PIP: 33 Tube Feeding Amount: 40 I&O: Intake and Output 06/29/16 06/30/16 19:00 07:00 Intake Total 985 ml 510 ml Output Total 980 ml 990 ml Balance 5 ml -480 ml Free Water 200 ml IV Total 265 ml Tube Feeding 480 ml 480 ml Other 40 ml 30 ml Output Urine Total 980 ml 990 ml CXR: slightly improving ET-Tube: 8.0 ET Position: 26 Labs: Laboratory Tests Test 06/30/16 04:47 06/30/16 10:00 White Blood Count 8.1 K/UL (4.8-10.8) Red Blood Count 3.00 M/UL (4.70-6.10) L Hemoglobin 8.9 G/DL (14.2-18.0) L Hematocrit 30.1 % (42.0-52.0) L Mean Corpuscular Volume 100 FL (80-99) H Mean Corpuscular Hemoglobin 29.6 PG (27.0-31.0) Mean Corpuscular Hemoglobin Concent 29.5 G/DL (32.0-36.0) L Red Cell Distribution Width 15.4 % (11.6-14.8) H Platelet Count 238 K/UL (150-450) Mean Platelet Volume 5.6 FL (6.5-10.1) L Neutrophils (%) (Auto) 79.9 % (45.0-75.0) H Lymphocytes (%) (Auto) 10.6 % (20.0-45.0) L Monocytes (%) (Auto) 3.1 % (1.0-10.0) Eosinophils (%) (Auto) 5.0 % (0.0-3.0) H Basophils (%) (Auto) 1.3 % (0.0-2.0) Sodium Level 153 mEQ/L (135-145) H Potassium Level 4.8 mEQ/L (3.4-4.9) Chloride Level 115 mEQ/L (98-107) H Carbon Dioxide Level 23 mEQ/L (20-30) Anion Gap 15 (5-15) Blood Urea Nitrogen 72 mg/dL (7-23) H Creatinine 3.0 mg/dL (0.7-1.2) H Estimat Glomerular Filtration Rate mL/min (>60) Glucose Level 189 mg/dL (74-106) H Calcium Level 8.4 mg/dL (8.6-10.2) L Phosphorus Level 3.0 mg/dL (2.5-4.8) Magnesium Level 1.6 mg/dL (1.7-2.5) L Total Bilirubin 0.2 mg/dL (0.0-1.2) Aspartate Amino Transf (AST/SGOT) 29 U/L (5-40) Alanine Aminotransferase (ALT/SGPT) 17 U/L (3-41) Alkaline Phosphatase 91 U/L (40-129) Troponin I < 0.30 ng/mL (<=0.30) Total Protein 5.0 g/dL (6.6-8.7) L Albumin 1.9 g/dL (3.5-5.2) L Globulin 3.1 g/dL Albumin/Globulin Ratio 0.6 (1.0-2.7) L Arterial Blood pH 7.313 (7.350-7.450) Arterial Blood Partial Pressure CO2 52.3 mmHg (35.0-45.0) H Arterial Blood Partial Pressure O2 67.6 mmHg (75.0-100.0) L Arterial Blood HCO3 26.0 mmol/L (22.0-26.0) Arterial Blood Oxygen Saturation 90.8 % (92.0-98.0) L Arterial Blood Base Excess 0.7 Adama Test Positive AMADO SCHULER Jun 30, 2016 10:38
[2016-06-30] MEDS ORDERED: Norco 5mg/325mg tab ORAL PRN (10:45)
[2016-06-30] MEDS: Micafungin 100 MG in NS 110 ML IVPB SCH (11:16)
[2016-06-30] MEDS ORDERED: Fleet's Mineral Oil Enema RECTAL PRN (12:00)
--- NOTE | 2016-06-30 12:26 | General Progress Note ---
Assessment/Plan Status: unchanged Status Narrative Cr 3 Assessment/Plan status: Acute Renal Failure- Cr stable Acute respiratory failure- septic shock , metabolic acidosis Superimposed on CRI due to DM / HTN PVD s/p amputation- Severe Anemia s/p Heart transplant sacral decub plan: weaning in process- Mag supplement as needed transfused slow Hydrate- free water, D5 watch CHF Sxs wound care- monitor renal parameters- optimize cardiac and pulm status- wean as possible. avoid nephrotoxics per ID and cardiology discussed with RN Subjective ROS Limited/Unobtainable: Yes Allergies: Coded Allergies: ADHESIVE TAPE (Verified Allergy, Unknown, Rash, 05/27/16) PLASTIC TAPE-COPIED FROM UNCODED SECTION PENICILLINS (Verified Allergy, Unknown, 06/20/16) PROCAINE (Verified Allergy, Unknown, Rash, 08/19/14) COPIED FRON UNCODED Objective Last 24 Hour Vital Signs Date Time Temp Pulse Resp B/P Pulse Ox O2 Delivery O2 Flow Rate FiO2 06/30/16 11:29 90 15 40 06/30/16 11:00 96 21 121/56 100 Mechanical Ventilator 40 06/30/16 10:23 40 06/30/16 10:00 101 24 135/89 100 Mechanical Ventilator 40 06/30/16 09:00 99 22 111/76 100 Mechanical Ventilator 40 06/30/16 08:50 40 06/30/16 08:49 86 29 40 06/30/16 08:48 100 06/30/16 08:00 40 06/30/16 08:00 99.5 87 22 117/66 99 Mechanical Ventilator 40 06/30/16 08:00 87 06/30/16 07:00 120 22 102/61 97 Mechanical Ventilator 40 06/30/16 06:56 90 15 40 06/30/16 06:00 110 20 99/61 97 Mechanical Ventilator 40 06/30/16 05:15 95 20 40 06/30/16 05:00 125 17 129/68 97 Mechanical Ventilator 40 06/30/16 04:00 40 06/30/16 04:00 99.4 115 21 113/86 98 Mechanical Ventilator 40 06/30/16 04:00 95 06/30/16 03:11 91 19 40 06/30/16 03:00 114 17 99/65 97 Mechanical Ventilator 40 06/30/16 02:00 89 17 94/64 97 Mechanical Ventilator 40 06/30/16 01:31 105 28 40 2/15/17 01:30 40 06/30/16 01:05 105 25 40 06/30/16 01:00 103 17 159/83 97 Mechanical Ventilator 40 06/30/16 00:00 98.9 104 18 156/79 97 Mechanical Ventilator 40 06/30/16 00:00 40 06/30/16 00:00 92 06/29/16 23:03 87 23 40 06/29/16 23:00 89 17 155/71 97 Mechanical Ventilator 40 06/29/16 22:00 88 26 109/73 97 Mechanical Ventilator 40 06/29/16 21:13 81 28 40 06/29/16 21:00 81 26 113/55 99 Mechanical Ventilator 40 06/29/16 20:00 98.7 78 16 129/53 98 Mechanical Ventilator 40 06/29/16 20:00 40 06/29/16 20:00 78 06/29/16 19:13 80 26 40 06/29/16 19:00 77 16 116/53 97 Mechanical Ventilator 40 06/29/16 18:00 80 18 103/46 98 Mechanical Ventilator 40 06/29/16 17:25 84 23 40 06/29/16 17:00 87 21 139/63 98 Mechanical Ventilator 40 06/29/16 16:15 106/50 06/29/16 16:00 81 06/29/16 16:00 98.9 85 23 106/50 96 Mechanical Ventilator 40 06/29/16 16:00 40 06/29/16 15:09 77 20 40 06/29/16 15:00 80 21 104/52 98 Mechanical Ventilator 40 06/29/16 14:00 87 21 105/59 100 Mechanical Ventilator 40 06/29/16 13:26 95 36 40 06/29/16 13:00 94 20 142/73 94 Mechanical Ventilator 40 Intake and Output 06/29/16 06/30/16 19:00 07:00 Intake Total 985 ml 510 ml Output Total 980 ml 990 ml Balance 5 ml -480 ml Free Water 200 ml IV Total 265 ml Tube Feeding 480 ml 480 ml Other 40 ml 30 ml Output Urine Total 980 ml 990 ml Laboratory Tests 06/30/16 04:47: White Blood Count 8.1, Red Blood Count 3.00L, Hemoglobin 8.9L, Hematocrit 30.1L , Mean Corpuscular Volume 100H, Mean Corpuscular Hemoglobin 29.6, Mean Corpuscular Hemoglobin Concent 29.5L, Red Cell Distribution Width 15.4H, Platelet Count 238, Mean Platelet Volume 5.6L, Neutrophils (%) (Auto) 79.9H, Lymphocytes (%) (Auto) 10.6L, Monocytes (%) (Auto) 3.1, Eosinophils (%) (Auto) 5.0H, Basophils (%) (Auto) 1.3, Sodium Level 153H, Potassium Level 4.8, Chloride Level 115H, Carbon Dioxide Level 23, Anion Gap 15, Blood Urea Nitrogen 72H, Creatinine 3.0H, Estimat Glomerular Filtration Rate , Glucose Level 189H, Calcium Level 8.4L, Phosphorus Level 3.0, Magnesium Level 1.6L, Total Bilirubin 0.2, Aspartate Amino Transf (AST/SGOT) 29, Alanine Aminotransferase (ALT/SGPT) 17, Alkaline Phosphatase 91, Troponin I < 0.30, Total Protein 5.0L, Albumin 1.9L , Globulin 3.1, Albumin/Globulin Ratio 0.6L 06/30/16 10:00: Arterial Blood pH 7.313L, Arterial Blood Partial Pressure CO2 52.3H, Arterial Blood Partial Pressure O2 67.6L, Arterial Blood HCO3 26.0, Arterial Blood Oxygen Saturation 90.8L, Arterial Blood Base Excess 0.7, Adama Test Positive Height (Feet): 5 Height (Inches): 8.00 Weight (Pounds): 193 General Appearance: no apparent distress Cardiovascular: tachycardia Respiratory/Chest: decreased breath sounds Abdomen: distended Objective no other changes in PE BRIJESH CALDERON Jun 30, 2016 12:26
--- NOTE | 2016-06-30 13:35 | Diagnostic Imaging Report ---
Indication: DYSPNEA Technique: One view of the chest Comparison: 06/29/2016 Findings: Again demonstrated is bilateral interstitial and alveolar edema. The heart is borderline enlarged. Stable satisfactory positions of endotracheal tube and PICC. There is a nasogastric tube in place, which is obscured distally. No definite effusions. Findings are overall unchanged Impression: Unchanged, over one day, findings as above.
--- NOTE | 2016-06-30 16:30 | Infectious Diseases Prog Note ---
Assessment/Plan Problems: (1) Sepsis Assessment & Plan: improving , on daptomycin ,meropenem , and micafungin , repeated blood culture is negative , and sputum culture grew junaid albicans only which is most likely colonization and not real. will continue current regimen for now pending further culture results. recommend transfer to [place] for higher level of care and to be monitored by the transplant team too. 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 continue local wound care , and off loading. (4) Anemia Assessment & Plan: S/P blood transfusion, monitor H&H, need to rule out GI source, recommend GI consult. (5) PVD (peripheral vascular disease) Assessment & Plan: S/P B/L AKA. (6) CKD (chronic kidney disease) Assessment & Plan: avoid nephrotoxic meds, monitor UOP, and renal function, renal is following (7) Heart transplant status Assessment & Plan: recommend to communicate with his heart transplant team at [place] for further recommendation, and possible transfer to [place] for higher level of care, continue transplant meds , and adjust as per his GFR. cardiology is following Subjective ROS Limited/Unobtainable: Yes Allergies: Coded Allergies: ADHESIVE TAPE (Verified Allergy, Unknown, Rash, 05/27/16) PLASTIC TAPE-COPIED FROM UNCODED SECTION PENICILLINS (Verified Allergy, Unknown, 06/20/16) PROCAINE (Verified Allergy, Unknown, Rash, 08/19/14) COPIED FRON UNCODED Subjective he is still intubated on mechanical ventilation but awake and coherent, no fever , no diarrhea, with less secretions. Objective Vital Signs Last 24 Hour Vital Signs Date Time Temp Pulse Resp B/P Pulse Ox O2 Delivery O2 Flow Rate FiO2 06/30/16 16:00 98.6 87 19 123/77 99 Mechanical Ventilator 40 06/30/16 16:00 40 06/30/16 16:00 87 06/30/16 15:20 82 15 40 06/30/16 15:00 82 21 93/68 100 Mechanical Ventilator 40 06/30/16 14:00 85 21 116/57 100 Mechanical Ventilator 40 06/30/16 13:09 93 29 40 06/30/16 13:00 92 21 137/62 100 Mechanical Ventilator 40 06/30/16 12:00 89 06/30/16 12:00 98.6 92 21 136/67 99 Mechanical Ventilator 40 06/30/16 11:29 90 15 40 06/30/16 11:00 96 21 121/56 100 Mechanical Ventilator 40 06/30/16 10:23 40 06/30/16 10:00 101 24 135/89 100 Mechanical Ventilator 40 06/30/16 09:00 99 22 111/76 100 Mechanical Ventilator 40 06/30/16 08:50 40 06/30/16 08:49 86 29 40 06/30/16 08:48 100 06/30/16 08:00 40 06/30/16 08:00 99.5 87 22 117/66 99 Mechanical Ventilator 40 06/30/16 08:00 87 06/30/16 07:00 120 22 102/61 97 Mechanical Ventilator 40 06/30/16 06:56 90 15 40 06/30/16 06:00 110 20 99/61 97 Mechanical Ventilator 40 06/30/16 05:15 95 20 40 06/30/16 05:00 125 17 129/68 97 Mechanical Ventilator 40 06/30/16 04:00 40 06/30/16 04:00 99.4 115 21 113/86 98 Mechanical Ventilator 40 06/30/16 04:00 95 06/30/16 03:11 91 19 40 06/30/16 03:00 114 17 99/65 97 Mechanical Ventilator 40 06/30/16 02:00 89 17 94/64 97 Mechanical Ventilator 40 06/30/16 01:31 105 28 40 06/30/16 01:30 40 06/30/16 01:05 105 25 40 06/30/16 01:00 103 17 159/83 97 Mechanical Ventilator 40 06/30/16 00:00 98.9 104 18 156/79 97 Mechanical Ventilator 40 06/30/16 00:00 40 06/30/16 00:00 92 06/29/16 23:03 87 23 40 06/29/16 23:00 89 17 155/71 97 Mechanical Ventilator 40 06/29/16 22:00 88 26 109/73 97 Mechanical Ventilator 40 06/29/16 21:13 81 28 40 06/29/16 21:00 81 26 113/55 99 Mechanical Ventilator 40 06/29/16 20:00 98.7 78 16 129/53 98 Mechanical Ventilator 40 06/29/16 20:00 40 06/29/16 20:00 78 06/29/16 19:13 80 26 40 06/29/16 19:00 77 16 116/53 97 Mechanical Ventilator 40 06/29/16 18:00 80 18 103/46 98 Mechanical Ventilator 40 06/29/16 17:25 84 23 40 06/29/16 17:00 87 21 139/63 98 Mechanical Ventilator 40 Height (Feet): 5 Height (Inches): 8.00 Weight (Pounds): 193 General Appearance: WD/WN, no acute distress HEENT: normocephalic, atraumatic, anicteric, mucous membranes moist Respiratory/Chest: chest wall non-tender, normal breath sounds, no respiratory distress, no accessory muscle use, decreased breath sounds, crackles/rales Cardiovascular: normal peripheral pulses, normal rate, regular rhythm, no gallop/murmur, no JVD Abdomen: normal bowel sounds, soft, non tender, no organomegaly, non distended , no mass, no scars Extremities: no cyanosis, no clubbing Skin: no rash, no lesions, no ulcers Neurologic/Psychiatric: alert Laboratory Tests Test 06/30/16 04:47 06/30/16 10:00 White Blood Count 8.1 K/UL (4.8-10.8) Red Blood Count 3.00 M/UL (4.70-6.10) L Hemoglobin 8.9 G/DL (14.2-18.0) L Hematocrit 30.1 % (42.0-52.0) L Mean Corpuscular Volume 100 FL (80-99) H Mean Corpuscular Hemoglobin 29.6 PG (27.0-31.0) Mean Corpuscular Hemoglobin Concent 29.5 G/DL (32.0-36.0) L Red Cell Distribution Width 15.4 % (11.6-14.8) H Platelet Count 238 K/UL (150-450) Mean Platelet Volume 5.6 FL (6.5-10.1) L Neutrophils (%) (Auto) 79.9 % (45.0-75.0) H Lymphocytes (%) (Auto) 10.6 % (20.0-45.0) L Monocytes (%) (Auto) 3.1 % (1.0-10.0) Eosinophils (%) (Auto) 5.0 % (0.0-3.0) H Basophils (%) (Auto) 1.3 % (0.0-2.0) Sodium Level 153 mEQ/L (135-145) H Potassium Level 4.8 mEQ/L (3.4-4.9) Chloride Level 115 mEQ/L (98-107) H Carbon Dioxide Level 23 mEQ/L (20-30) Anion Gap 15 (5-15) Blood Urea Nitrogen 72 mg/dL (7-23) H Creatinine 3.0 mg/dL (0.7-1.2) H Estimat Glomerular Filtration Rate mL/min (>60) Glucose Level 189 mg/dL (74-106) H Calcium Level 8.4 mg/dL (8.6-10.2) L Phosphorus Level 3.0 mg/dL (2.5-4.8) Magnesium Level 1.6 mg/dL (1.7-2.5) L Total Bilirubin 0.2 mg/dL (0.0-1.2) Aspartate Amino Transf (AST/SGOT) 29 U/L (5-40) Alanine Aminotransferase (ALT/SGPT) 17 U/L (3-41) Alkaline Phosphatase 91 U/L (40-129) Troponin I < 0.30 ng/mL (<=0.30) Total Protein 5.0 g/dL (6.6-8.7) L Albumin 1.9 g/dL (3.5-5.2) L Globulin 3.1 g/dL Albumin/Globulin Ratio 0.6 (1.0-2.7) L Arterial Blood pH 7.313 (7.350-7.450) Arterial Blood Partial Pressure CO2 52.3 mmHg (35.0-45.0) H Arterial Blood Partial Pressure O2 67.6 mmHg (75.0-100.0) L Arterial Blood HCO3 26.0 mmol/L (22.0-26.0) Arterial Blood Oxygen Saturation 90.8 % (92.0-98.0) L Arterial Blood Base Excess 0.7 Adama Test Positive Current Medications Medications (Trade) Dose Ordered Sig/Koffi Route PRN Reason Start Time Stop Time Status Last Admin Dose Admin Acetaminophen (Tylenol) 650 mg Q4H PRN ORAL fever 06/23/16 10:30 07/23/16 10:29 06/29/16 02:23 Acetaminophen/ Hydrocodone Bitart (Richardson 5/325) 1 tab Q4H PRN ORAL Moderate Pain (Pain Scale 4-6) 06/30/16 10:45 07/07/16 10:44 Bisacodyl (Dulcolax) 10 mg DAILYPRN PRN RECTAL Constipation 2nd line 06/30/16 10:45 07/30/16 10:44 06/30/16 14:31 Clopidogrel Bisulfate (Plavix) 75 mg DAILY GT 06/25/16 10:22 07/23/16 08:59 06/30/16 08:14 Collagenase (Santyl) 1 applic DAILY TOPIC 06/23/16 09:00 07/23/16 08:59 06/30/16 08:16 Daptomycin 500 mg/ Sodium Chloride 55 ml @ 110 mls/hr Q48H IV 06/25/16 19:00 07/02/16 18:59 06/29/16 18:35 Dextrose (Dextrose 50%) STAT PRN IV Hypoglycemia 06/23/16 22:30 07/23/16 22:29 Docusate Sodium (Colace) 100 mg TID NG 06/24/16 09:00 07/24/16 08:59 06/30/16 12:21 Epoetin Mars (Procrit (for non ESRD use)) 7,000 units MON-WED-FRI SUBQ 06/23/16 21:00 07/23/16 20:59 06/28/16 20:32 Insulin Aspart (NovoLOG) EVERY 6 HOURS SUBQ 06/23/16 12:00 07/23/16 11:59 06/30/16 12:25 Lactobacillus Acidophilus (Culturelle) 1 tab THREE TIMES A DAY GT 06/25/16 10:23 07/23/16 08:59 06/30/16 12:21 Lorazepam (Ativan 2mg/ml 1ml) 0.5 mg Q4H PRN IV For Anxiety 06/30/16 10:45 07/07/16 10:44 Meropenem 500 mg/ Sodium Chloride 110 ml @ 220 mls/hr Q12HR IVPB 06/25/16 21:00 07/04/16 20:59 06/30/16 08:14 Micafungin Sodium/ Sodium Chloride (Mycamine/Sodium Chloride) 110 ml @ 110 mls/hr Q24H IVPB 06/26/16 11:00 07/03/16 10:59 06/30/16 11:16 Mineral Oil (Fleet's Mineral Oil Enema) 133 ml DAILYPRN PRN RECTAL Constipation 3rd Line 06/30/16 12:00 07/30/16 11:59 Mycophenolate Mofetil 500 mg 500 mg TWICE A DAY GT 06/25/16 10:24 07/23/16 08:59 06/30/16 08:14 Ondansetron HCl (Zofran) 4 mg Q6H PRN IVP Nausea & Vomiting 06/23/16 10:30 07/23/16 10:29 06/24/16 09:50 Pantoprazole (Protonix) 40 mg DAILY IVP 06/23/16 09:00 07/23/16 08:59 06/30/16 08:15 Polyethylene Glycol (Miralax) 17 gm DAILY PRN GT Constipation 06/25/16 10:23 07/23/16 08:59 06/29/16 22:42 Sodium Hypochlorite (Dakin's Full Strength) 1 applic DAILY TOPIC 06/23/16 09:00 07/23/16 08:59 06/30/16 08:16 Tacrolimus (Prograf) 1 mg DAILY@0800 ORAL 06/24/16 09:30 07/24/16 09:29 06/30/16 08:14 Tacrolimus (Prograf) 1 mg QHS ORAL 06/26/16 21:00 07/26/16 20:59 06/29/16 21:04 Zolpidem Tartrate (Ambien) 5 mg HSPRN PRN GT Insomnia 06/25/16 10:24 07/23/16 22:29 Jose Mott M.D. Jun 30, 2016 16:30
--- NOTE | 2016-06-30 18:07 | Cardiology Progress Note ---
Assessment/Plan Assessment/Plan hyperkalemia due ro renal failure and over use of benicar (two time the upper limit of max does recommended) acute on chronic renal filure s/p heart tx dm with endorgan disease pvd obesity anemia htn acute reparatory failure and acidosis hypernatremia presumed pneumonia hypotension ?volume related tachy cardia ? volume related failed wean agian today Prograf level yest 3.6 received prbc tx a few lanre go would be tolerant of anemia since post transplant cr stabel echo ef 50-55% d/w rn not on pressor bnp non diagnostic in light of renal insuf presume pneumonia on abx na still elevated will need more free water remains critical on duncan vent tele reviewed ekg today reviewed persoanlly will repaet prograff level in 2 days duration 45 min Subjective Cardiovascular: Denies: chest pain Respiratory: Reports: shortness of breath Gastrointestinal/Abdominal: Denies: abdominal pain Genitourinary: Denies: burning Subjective on a vent awake and responsive Objective Last 24 Hour Vital Signs Date Time Temp Pulse Resp B/P Pulse Ox O2 Delivery O2 Flow Rate FiO2 06/30/16 17:00 85 20 136/67 100 Mechanical Ventilator 40 06/30/16 16:54 87 19 40 06/30/16 16:00 98.6 87 19 123/77 99 Mechanical Ventilator 40 06/30/16 16:00 40 06/30/16 16:00 87 06/30/16 15:20 82 15 40 06/30/16 15:00 82 21 93/68 100 Mechanical Ventilator 40 06/30/16 14:00 85 21 116/57 100 Mechanical Ventilator 40 06/30/16 13:09 93 29 40 06/30/16 13:00 92 21 137/62 100 Mechanical Ventilator 40 06/30/16 12:00 89 06/30/16 12:00 98.6 92 21 136/67 99 Mechanical Ventilator 40 06/30/16 11:29 90 15 40 06/30/16 11:00 96 21 121/56 100 Mechanical Ventilator 40 06/30/16 10:23 40 06/30/16 10:00 101 24 135/89 100 Mechanical Ventilator 40 06/30/16 09:00 99 22 111/76 100 Mechanical Ventilator 40 06/30/16 08:50 40 06/30/16 08:49 86 29 40 06/30/16 08:48 100 2/15/17 08:00 40 06/30/16 08:00 99.5 87 22 117/66 99 Mechanical Ventilator 40 06/30/16 08:00 87 06/30/16 07:00 120 22 102/61 97 Mechanical Ventilator 40 06/30/16 06:56 90 15 40 06/30/16 06:00 110 20 99/61 97 Mechanical Ventilator 40 06/30/16 05:15 95 20 40 06/30/16 05:00 125 17 129/68 97 Mechanical Ventilator 40 06/30/16 04:00 40 06/30/16 04:00 99.4 115 21 113/86 98 Mechanical Ventilator 40 06/30/16 04:00 95 06/30/16 03:11 91 19 40 06/30/16 03:00 114 17 99/65 97 Mechanical Ventilator 40 06/30/16 02:00 89 17 94/64 97 Mechanical Ventilator 40 06/30/16 01:31 105 28 40 06/30/16 01:30 40 06/30/16 01:05 105 25 40 06/30/16 01:00 103 17 159/83 97 Mechanical Ventilator 40 06/30/16 00:00 98.9 104 18 156/79 97 Mechanical Ventilator 40 06/30/16 00:00 40 06/30/16 00:00 92 06/29/16 23:03 87 23 40 06/29/16 23:00 89 17 155/71 97 Mechanical Ventilator 40 06/29/16 22:00 88 26 109/73 97 Mechanical Ventilator 40 06/29/16 21:13 81 28 40 06/29/16 21:00 81 26 113/55 99 Mechanical Ventilator 40 06/29/16 20:00 98.7 78 16 129/53 98 Mechanical Ventilator 40 06/29/16 20:00 40 06/29/16 20:00 78 06/29/16 19:13 80 26 40 06/29/16 19:00 77 16 116/53 97 Mechanical Ventilator 40 General Appearance: no apparent distress, alert, on vent, patient on isolation Neck: supple Cardiovascular: normal rate, regular rhythm Respiratory/Chest: lungs clear - anteriroly Abdomen: non tender, soft Extremities: moderate edema Intake and Output 06/29/16 06/30/16 19:00 07:00 Intake Total 985 ml 510 ml Output Total 980 ml 990 ml Balance 5 ml -480 ml Free Water 200 ml IV Total 265 ml Tube Feeding 480 ml 480 ml Other 40 ml 30 ml Output Urine Total 980 ml 990 ml Laboratory Tests Test 06/30/16 04:47 06/30/16 10:00 White Blood Count 8.1 K/UL (4.8-10.8) Red Blood Count 3.00 M/UL (4.70-6.10) L Hemoglobin 8.9 G/DL (14.2-18.0) L Hematocrit 30.1 % (42.0-52.0) L Mean Corpuscular Volume 100 FL (80-99) H Mean Corpuscular Hemoglobin 29.6 PG (27.0-31.0) Mean Corpuscular Hemoglobin Concent 29.5 G/DL (32.0-36.0) L Red Cell Distribution Width 15.4 % (11.6-14.8) H Platelet Count 238 K/UL (150-450) Mean Platelet Volume 5.6 FL (6.5-10.1) L Neutrophils (%) (Auto) 79.9 % (45.0-75.0) H Lymphocytes (%) (Auto) 10.6 % (20.0-45.0) L Monocytes (%) (Auto) 3.1 % (1.0-10.0) Eosinophils (%) (Auto) 5.0 % (0.0-3.0) H Basophils (%) (Auto) 1.3 % (0.0-2.0) Sodium Level 153 mEQ/L (135-145) H Potassium Level 4.8 mEQ/L (3.4-4.9) Chloride Level 115 mEQ/L (98-107) H Carbon Dioxide Level 23 mEQ/L (20-30) Anion Gap 15 (5-15) Blood Urea Nitrogen 72 mg/dL (7-23) H Creatinine 3.0 mg/dL (0.7-1.2) H Estimat Glomerular Filtration Rate mL/min (>60) Glucose Level 189 mg/dL (74-106) H Calcium Level 8.4 mg/dL (8.6-10.2) L Phosphorus Level 3.0 mg/dL (2.5-4.8) Magnesium Level 1.6 mg/dL (1.7-2.5) L Total Bilirubin 0.2 mg/dL (0.0-1.2) Aspartate Amino Transf (AST/SGOT) 29 U/L (5-40) Alanine Aminotransferase (ALT/SGPT) 17 U/L (3-41) Alkaline Phosphatase 91 U/L (40-129) Troponin I < 0.30 ng/mL (<=0.30) Total Protein 5.0 g/dL (6.6-8.7) L Albumin 1.9 g/dL (3.5-5.2) L Globulin 3.1 g/dL Albumin/Globulin Ratio 0.6 (1.0-2.7) L Arterial Blood pH 7.313 (7.350-7.450) Arterial Blood Partial Pressure CO2 52.3 mmHg (35.0-45.0) H Arterial Blood Partial Pressure O2 67.6 mmHg (75.0-100.0) L Arterial Blood HCO3 26.0 mmol/L (22.0-26.0) Arterial Blood Oxygen Saturation 90.8 % (92.0-98.0) L Arterial Blood Base Excess 0.7 Adama Test Positive HAILEE PATEL Jun 30, 2016 18:07
--- NOTE | 2016-06-30 18:49 | Consultation ---
Consult Note Consult Note NEUROLOGY CONSULTATION: Full note dictated #[id number] 76 y/o, RH, CM with PH of HTN, DM, CAD s/p Heart Transplant, PVD s/p Left BKA and Right AKA, CKD, sacral decubitus who was hospitalized on 06/18/16 for severe anemia, worsening renal function and severe hyperkalemia. He was stabilized in the ICU. On the morning of 06/29/16 he was noted to have a seizure, unfortunately there is no description of the seizure anywhere in his medical records. He has had no further events. ON EXAM: Intubated via OT tube. Not very cooperative. Moves all 4s Trace+ DTRs in UE. 0 at left knee. IMPRESSION: Single seizure - description unavailable. Etiology for seizure unclear - ? Toxic/metabolic insult. REC: EEG CT of brain no contrast when safe to leave ICU. Observe Gustavo Padilla M.D., M.S.P.H. GUSTAVO PADILLA Jun 30, 2016 18:49
[2016-06-30] MEDS: Epogen (for non ESRD use) SUBQ SCH (20:34)
--- NOTE | 2016-06-30 22:20 | Consultation ---
DATE OF CONSULTATION: 06/30/2016 REQUESTING PHYSICIAN: Sudarshan Hahn M.D. HISTORY: Mr. Sherman Ralph is a 76-year-old, right-handed, gentleman, who does have a past history of hypertension, diabetes mellitus, coronary artery disease with an ischemic cardiomyopathy for which he has had a heart transplant, peripheral vascular disease - status post left nwlag-ptz-dxsn amputation and right byahk-ocg-emxy amputation, chronic kidney disease, and a sacral decubitus who was functioning relatively well until 06/18/2016 when he was brought into the hospital for severe anemia, worsening renal function, and severe hyperkalemia. He has since been stabilized in the hospital and has been in the intensive care unit, intubated and artificially ventilated. On the morning of 06/29/2016, he was noted to have a seizure. Unfortunately there is no description of the seizure anywhere in his medical records. He however has had no further events. He is unable to remember anything. He is also not very cooperative and is unable to give any further history. PAST MEDICAL HISTORY: Significant for hypertension, diabetes mellitus, coronary artery disease, ischemic cardiomyopathy, heart transplant, peripheral vascular disease with left kvwua-klv-zzmd amputation and right hlmvg-ape-nkva amputation, chronic kidney disease and sacral decubitus. FAMILY HISTORY: Unavailable. PERSONAL HISTORY: Unavailable. PRESENT MEDICATIONS: 1. [place] p.r.n. 2. Ativan p.r.n. 3. Dulcolax p.r.n. 4. Tacrolimus. 5. Micafungin. 6. Meropenem. 7. Daptomycin. 8. Ambien p.r.n. 9. CellCept. 10. Lactobacillus. 11. MiraLAX. 12. Plavix. 13. Docusate sodium. 14. Procrit. 15. Insulin. 16. Tylenol. 17. Zofran. 18. Collagenase. 19. Protonix. PHYSICAL EXAMINATION: GENERAL: He is a well-developed, well-nourished, obese, gentleman, lying in an ICU bed, connected to a ventilator via an orotracheal tube. VITAL SIGNS: Pulse 85 per minute, blood pressure 136/67 mmHg, respirations 20 per minute, and temperature 98.6 degrees Fahrenheit. HEAD: Normocephalic and atraumatic. NECK: No neck rigidity was observed. EENT: Examination benign. NEUROLOGICAL EXMINATION: MENTAL STATUS EXMINATION: He was awake and looked alert. He was oriented to self only. He did not cooperate for further mental status testing. SPEECH: Could not be tested. LANGUAGE: He was able to follow simple commands. Further language testing was impossible. CRANIAL NERVE EXAMINATION II: He did blink to threat. He did not cooperate for confrontation testing. III, IV & : The external ocular movements were full and the pupils 3 mm in diameter equal round, regular, and reactive to sluggishly to light. V & VII: Corneal reflex were the reflexes were brisk bilaterally. VIII: He did not respond to sounds and had no nystagmus. IX & X: The gag reflex was present but subdued. XI: Sternocleidomastoids and trapezii did function. XII: Could not be tested adequately. MOTOR SYSTEM: The tone was normal in all four extremities. Examination of muscle mass revealed no focal wasting. He did have right luwuu-hbi-swxu amputation and left ftbwf-ebw-vjdx amputation. Examination of power was impossible to perform he did however move all four extremities on deep painful stimulation. SENSORY EXAMINATION: He responded appropriately to deep pain in all four extremities. REFLEXES: Trace+ and bilaterally symmetrical at the biceps, triceps, brachioradialis, 0 at the left knee. COORDINATION, STANCE & GAIT: Could not be tested. DIAGNOSTIC IMPRESSION: 1. Mr. Sherman Ralph is a 76-year-old, right-handed, gentleman, who does have a past history of hypertension, diabetes mellitus, coronary artery disease, ischemic cardiomyopathy, heart transplant, peripheral vascular disease with right munpj-oua-rwkb amputation and left lepif-syi-tzvr amputation, chronic kidney disease, and a sacral decubitus who was hospitalized on 06/18/2016 for severe anemia, worsening renal function, and severe hyperkalemia . He has also been thought to be septic and has been in the intensive care unit for management of all his medical problems. On the morning of 06/29/2016 he was noted to have a seizure, the description of which is unavailable. 2. On neurological examination, at this time, he is intubated and not very cooperative and thus performing a thorough mental status examination is quite impossible. He moves all four extremities equally. His deep tendon reflexes are globally diminished in the upper extremities and lost of the left knee. 3. His latest laboratory data revealed that he is anemic with hemoglobin of 8.9. His arterial blood gas reveals a pH of 7.31 with a pCO2 of 52.3 and a pO2 of 67.6. His chemistry panel reveals a sodium elevated to 153, chloride elevated to 115, BUN elevated to 72, creatinine elevated to 3.0, blood glucose elevated to 189. His CRP is elevated to 21.3 and his proBNP is elevated to 6090. He is also significantly hypoalbuminemic with an albumin of 1.9. 4. The patient's history, neurological examination, and laboratory data are most compatible with a single seizure the description of which is unavailable to us. The etiology for the seizure is unclear but there is a high probability that it was a seizure symptomatic of a toxic metabolic insult. RECOMMENDATIONS: 1. Agree with management thus far. 2. At this point in time, would not start the patient on antiseizure medicine. 3. An EEG should be performed to evaluate the patient for the type of seizure disorder. 4. When it is safe for the patient to the leave intensive care unit, a CT scan of the brain without contrast should be performed to exclude intracranial pathology as a reason for his new onset seizure. 5. The patient should be observed closely and depending on how he fares further recommendations will be given. Thank you for entrusting me with the care of Mr. Ralph. I shall follow him with you. Will Padilla M.D., M.S.P.H. DR: Rickie JOB#: [id number] MTDChad
[2016-07-01] VITALS (23 sets, daily range): BP systolic 105–166; BP diastolic 48–91
[2016-07-01 05:16] LABS: BASOPHILS % (AUTO) 0.8 % (0.0-2.0); EOSINOPHILS % (AUTO) 2.4 % (0.0-3.0); LYMPHOCYTES % (AUTO) 8.4 % (20.0-45.0); MEAN CORPUSCULAR HEMOGLOBIN 31.1 PG (27.0-31.0); MEAN CORPUSCULAR HGB CONC 31.3 G/DL (32.0-36.0); MEAN CORPUSCULAR VOLUME 100 FL (80-99); MEAN PLATELET VOLUME 5.9 FL (6.5-10.1); MONOCYTES % (AUTO) 4.7 % (1.0-10.0); NEUTROPHILS % (AUTO) 83.7 % (45.0-75.0); PLATELET COUNT 268 K/UL (150-450); RED BLOOD COUNT 3.14 M/UL (4.70-6.10); RED CELL DISTRIBUTION WIDTH 15.2 % (11.6-14.8); WHITE BLOOD COUNT 10.8 K/UL (4.8-10.8)
[2016-07-01] MEDS: NovoLOG Insulin Flexpen SUBQ SCH ×3 (05:31→17:57)
[2016-07-01 05:43] LABS: ALANINE AMINOTRANSFERASE 17 U/L (3-41); ALBUMIN/GLOBULIN RATIO 0.7 (1.0-2.7); ANION GAP 15 (5-15); ASPARTATE AMINO TRANSFERASE 25 U/L (5-40); CALCIUM 8.6 mg/dL (8.6-10.2); CARBON DIOXIDE 24 mEQ/L (20-30); CHLORIDE 110 mEQ/L (98-107); CREATININE 2.7 mg/dL (0.7-1.2); HEMOLYSIS 0; MAGNESIUM 2.1 mg/dL (1.7-2.5); PHOSPHORUS 2.6 mg/dL (2.5-4.8); POTASSIUM 4.4 mEQ/L (3.4-4.9); SODIUM 149 mEQ/L (135-145); TOTAL PROTEIN 5.4 g/dL (6.6-8.7)
[2016-07-01] MEDS: Mycophenolate 250mg cap GT SCH ×2 (08:20→17:54)
[2016-07-01] MEDS: Lactobacillus-GG tablet GT SCH ×3 (08:20→17:54)
[2016-07-01] MEDS: Meropenem 500 MG in NS 110 ML IVPB SCH ×2 (08:20→21:12)
[2016-07-01] MEDS: Pantoprazole Inj IVP SCH (08:21)
[2016-07-01] MEDS: Dakin's 0.5% (Full Strength) 16oz TOPIC SCH (08:21)
[2016-07-01] MEDS: Docusate 100mg tablet NG SCH ×3 (08:33→17:54)
--- NOTE | 2016-07-01 09:34 | General Progress Note ---
Assessment/Plan Status: stable - from renal stand point Status Narrative Cr lower Assessment/Plan status: Acute Renal Failure- Cr stable Acute respiratory failure- septic shock , metabolic acidosis Superimposed on CRI due to DM / HTN PVD s/p amputation- Severe Anemia s/p Heart transplant sacral decub plan: weaning in process- Mag supplement as needed transfused slow Hydrate- free water, D5 watch CHF Sxs wound care- monitor renal parameters- optimize cardiac and pulm status- wean as possible. avoid nephrotoxics per ID and cardiology discussed with RN Subjective ROS Limited/Unobtainable: Yes Allergies: Coded Allergies: ADHESIVE TAPE (Verified Allergy, Unknown, Rash, 05/27/16) PLASTIC TAPE-COPIED FROM UNCODED SECTION PENICILLINS (Verified Allergy, Unknown, 06/20/16) PROCAINE (Verified Allergy, Unknown, Rash, 08/19/14) COPIED FRON UNCODED Objective Last 24 Hour Vital Signs Date Time Temp Pulse Resp B/P Pulse Ox O2 Delivery O2 Flow Rate FiO2 07/01/16 08:00 99.2 84 18 105/53 97 Mechanical Ventilator 40 07/01/16 08:00 84 07/01/16 07:50 40 07/01/16 07:00 99.9 88 20 108/53 98 Mechanical Ventilator 40 07/01/16 06:45 89 17 40 07/01/16 06:35 99.9 07/01/16 06:07 99.9 93 20 139/64 98 Mechanical Ventilator 40 07/01/16 05:00 100.6 95 20 123/78 98 Mechanical Ventilator 40 07/01/16 04:46 96 23 40 07/01/16 04:00 86 07/01/16 04:00 86 20 166/62 98 Mechanical Ventilator 40 07/01/16 04:00 40 07/01/16 03:00 88 20 160/91 98 Mechanical Ventilator 40 07/01/16 02:43 99 26 40 07/01/16 02:00 99 20 162/91 98 Mechanical Ventilator 40 07/01/16 01:00 86 20 163/76 98 Mechanical Ventilator 40 07/01/16 00:52 90 22 40 07/01/16 00:00 88 07/01/16 00:00 40 06/30/16 23:59 99.9 88 20 125/78 98 Mechanical Ventilator 40 06/30/16 23:02 87 18 40 06/30/16 22:00 86 20 129/68 98 Mechanical Ventilator 40 06/30/16 21:29 86 19 40 06/30/16 21:00 89 21 121/59 100 Mechanical Ventilator 40 06/30/16 20:00 99.3 91 21 134/77 99 Mechanical Ventilator 40 06/30/16 20:00 91 06/30/16 20:00 40 06/30/16 19:00 85 17 135/74 100 Mechanical Ventilator 40 06/30/16 18:58 86 23 40 06/30/16 18:00 86 22 133/74 100 Mechanical Ventilator 40 06/30/16 17:00 85 20 136/67 100 Mechanical Ventilator 40 06/30/16 16:54 87 19 40 06/30/16 16:00 98.6 87 19 123/77 99 Mechanical Ventilator 40 06/30/16 16:00 40 06/30/16 16:00 87 06/30/16 15:20 82 15 40 06/30/16 15:00 82 21 93/68 100 Mechanical Ventilator 40 06/30/16 14:00 85 21 116/57 100 Mechanical Ventilator 40 06/30/16 13:09 93 29 40 06/30/16 13:00 92 21 137/62 100 Mechanical Ventilator 40 06/30/16 12:00 89 06/30/16 12:00 98.6 92 21 136/67 99 Mechanical Ventilator 40 06/30/16 11:29 90 15 40 06/30/16 11:00 96 21 121/56 100 Mechanical Ventilator 40 06/30/16 10:23 40 06/30/16 10:00 101 24 135/89 100 Mechanical Ventilator 40 Intake and Output 06/30/16 07/01/16 19:00 07:00 Intake Total 1110 ml 740 ml Output Total 1370 ml 1050 ml Balance -260 ml -310 ml Free Water 200 ml 200 ml IV Total 430 ml Tube Feeding 480 ml 480 ml Other 60 ml Output Urine Total 1370 ml 1050 ml # Bowel Movements 2 Laboratory Tests 06/30/16 10:00: Arterial Blood pH 7.313L, Arterial Blood Partial Pressure CO2 52.3H, Arterial Blood Partial Pressure O2 67.6L, Arterial Blood HCO3 26.0, Arterial Blood Oxygen Saturation 90.8L, Arterial Blood Base Excess 0.7, Adama Test Positive 07/01/16 04:00: White Blood Count 10.8, Red Blood Count 3.14L, Hemoglobin 9.8L, Hematocrit 31.3L , Mean Corpuscular Volume 100H, Mean Corpuscular Hemoglobin 31.1H, Mean Corpuscular Hemoglobin Concent 31.3L, Red Cell Distribution Width 15.2H, Platelet Count 268, Mean Platelet Volume 5.9L, Neutrophils (%) (Auto) 83.7H, Lymphocytes (%) (Auto) 8.4L, Monocytes (%) (Auto) 4.7, Eosinophils (%) (Auto) 2.4, Basophils (%) (Auto) 0.8, Sodium Level 149H, Potassium Level 4.4, Chloride Level 110H, Carbon Dioxide Level 24, Anion Gap 15, Blood Urea Nitrogen 66H, Creatinine 2.7H, Estimat Glomerular Filtration Rate , Glucose Level 204H, Calcium Level 8.6, Phosphorus Level 2.6, Magnesium Level 2.1, Total Bilirubin < 0.2, Aspartate Amino Transf (AST/SGOT) 25, Alanine Aminotransferase (ALT/SGPT) 17, Alkaline Phosphatase 100, Total Protein 5.4L, Albumin 2.3L, Globulin 3.1, Albumin/Globulin Ratio 0.7L Height (Feet): 5 Height (Inches): 8.00 Weight (Pounds): 193 General Appearance: no apparent distress, other EENT: other - intubated Objective no other changes in PE BRIJESH CALDERON Jul 01, 2016 09:34
[2016-07-01] MEDS: Micafungin 100 MG in NS 110 ML IVPB SCH (11:37)
[2016-07-01 11:42] LABS: ABG PCO2 36.4 mmHg (35.0-45.0)
[2016-07-01 11:43] LABS: ABG ALLEN TEST POSITIVE; ABG BASE EXCESS 0
--- NOTE | 2016-07-01 12:02 | Neurology Progress Note ---
Interim History Interim History Interim History Mr. Ralph continues to be awake and looks brighter. He has had no further seizures or seizure-like phenomena. He continues to be intubated and artificially ventilated. He continues to be unable to cooperate with a mental status examination. He is still generally weak. Review of Systems Neuro Review of Systems Benign. Objective Physical Exam Last Vital Signs Date Time Temp Pulse Resp B/P Pulse Ox O2 Delivery O2 Flow Rate FiO2 07/01/16 11:45 40 07/01/16 11:00 81 21 113/55 97 Mechanical Ventilator 07/01/16 08:00 99.2 Laboratory Tests Test 07/01/16 04:00 07/01/16 11:36 White Blood Count 10.8 K/UL (4.8-10.8) Red Blood Count 3.14 M/UL (4.70-6.10) L Hemoglobin 9.8 G/DL (14.2-18.0) L Hematocrit 31.3 % (42.0-52.0) L Mean Corpuscular Volume 100 FL (80-99) H Mean Corpuscular Hemoglobin 31.1 PG (27.0-31.0) H Mean Corpuscular Hemoglobin Concent 31.3 G/DL (32.0-36.0) L Red Cell Distribution Width 15.2 % (11.6-14.8) H Platelet Count 268 K/UL (150-450) Mean Platelet Volume 5.9 FL (6.5-10.1) L Neutrophils (%) (Auto) 83.7 % (45.0-75.0) H Lymphocytes (%) (Auto) 8.4 % (20.0-45.0) L Monocytes (%) (Auto) 4.7 % (1.0-10.0) Eosinophils (%) (Auto) 2.4 % (0.0-3.0) Basophils (%) (Auto) 0.8 % (0.0-2.0) Sodium Level 149 mEQ/L (135-145) H Potassium Level 4.4 mEQ/L (3.4-4.9) Chloride Level 110 mEQ/L (98-107) H Carbon Dioxide Level 24 mEQ/L (20-30) Anion Gap 15 (5-15) Blood Urea Nitrogen 66 mg/dL (7-23) H Creatinine 2.7 mg/dL (0.7-1.2) H Estimat Glomerular Filtration Rate mL/min (>60) Glucose Level 204 mg/dL (74-106) H Calcium Level 8.6 mg/dL (8.6-10.2) Phosphorus Level 2.6 mg/dL (2.5-4.8) Magnesium Level 2.1 mg/dL (1.7-2.5) Total Bilirubin < 0.2 mg/dL (0.0-1.2) Aspartate Amino Transf (AST/SGOT) 25 U/L (5-40) Alanine Aminotransferase (ALT/SGPT) 17 U/L (3-41) Alkaline Phosphatase 100 U/L (40-129) Total Protein 5.4 g/dL (6.6-8.7) L Albumin 2.3 g/dL (3.5-5.2) L Globulin 3.1 g/dL Albumin/Globulin Ratio 0.7 (1.0-2.7) L Arterial Blood pH 7.437 (7.350-7.450) Arterial Blood Partial Pressure CO2 36.4 mmHg (35.0-45.0) Arterial Blood Partial Pressure O2 95.9 mmHg (75.0-100.0) Arterial Blood HCO3 24.0 mmol/L (22.0-26.0) Arterial Blood Oxygen Saturation 97.0 % (92.0-98.0) Arterial Blood Base Excess 0 Adama Test Positive Neurologic Exam Objective PHYSICAL EXAMINATION: GENERAL: He is a well-developed, well-nourished, obese, gentleman, lying in an ICU bed, connected to a ventilator via an orotracheal tube. HEAD: Normocephalic and atraumatic. NECK: No neck rigidity was observed. EENT: Examination benign. NEUROLOGICAL EXMINATION: MENTAL STATUS EXMINATION: He was awake and alert. He was oriented to self only. He did not cooperate for further mental status testing. SPEECH: Could not be tested. LANGUAGE: He was able to follow simple commands. Further language testing was impossible. CRANIAL NERVE EXAMINATION II: He did blink to threat. He did not cooperate for confrontation testing. III, IV & : The external ocular movements were full and the pupils 3 mm in diameter equal round, regular, and reactive to sluggishly to light. V & VII: Corneal reflex were the reflexes were brisk bilaterally. VIII: He did not respond to sounds and had no nystagmus. IX & X: The gag reflex was present but subdued. XI: Sternocleidomastoids and trapezii did function. XII: Could not be tested adequately. MOTOR SYSTEM: The tone was normal in all four extremities. Examination of muscle mass revealed no focal wasting. He did have right above- the-knee amputation and left wbtsi-riv-zjwy amputation. Examination of power was impossible to perform he did however move all four extremities on deep painful stimulation. SENSORY EXAMINATION: He responded appropriately to deep pain in all four extremities. REFLEXES: Trace+ and bilaterally symmetrical at the biceps, triceps, brachioradialis, 0 at the left knee. COORDINATION, STANCE & GAIT: Could not be tested. Impression/Recommendations Diagnostic Impression 1. Mr. Sherman Ralph is a 76-year-old, right-handed, gentleman, who does have a past history of hypertension, diabetes mellitus, coronary artery disease, ischemic cardiomyopathy, heart transplant, peripheral vascular disease with right wcbxx-vvw-pquw amputation and left xmaft-kfu-riwt amputation , chronic kidney disease, and a sacral decubitus who was hospitalized on 2016 for severe anemia, worsening renal function, and severe hyperkalemia . He has also been thought to be septic and has been in the intensive care unit for management of all his medical problems. On the morning of 06/29/2016 he was noted to have a seizure, the description of which is unavailable. 2. He has had no further seizures or seizure-like phenomena. 3. On neurological examination, at this time, he is intubated and not very cooperative and thus performing a thorough mental status examination is quite impossible. He moves all four extremities equally. His deep tendon reflexes are globally diminished in the upper extremities and lost in the left knee. 4. His latest laboratory data on my initial evaluation revealed that he was anemic with a hemoglobin of 8.9. His arterial blood gas revealed a pH of 7.31 with a pCO2 of 52.3 and a pO2 of 67.6. His chemistry panel revealed a sodium elevated to 153, chloride elevated to 115, BUN elevated to 72, creatinine elevated to 3.0, blood glucose elevated to 189. His CRP was elevated to 21.3 and his proBNP was elevated to 6090. He was also significantly hypoalbuminemic with an albumin of 1.9. 5. The EEG done on 06/30/16 revealed a moderate encephalopathy but no focal slowing or inter-ictal phenomena. 6. The patient's history, neurological examination, and laboratory data are most compatible with a single seizure the description of which is unavailable to us. The etiology for the seizure is unclear but there is a high probability that it was a seizure symptomatic of a toxic metabolic insult. He continues to be seizure free at this time. Recommendations 1. Continue present management. 2. No indication to start antiseizure medicine. 3. When it is safe for the patient to the leave intensive care unit, a CT scan of the brain without contrast should be performed to exclude intracranial pathology as a reason for his new onset seizure. 4. Observe closely. Will Padilla M.D., M.S.WILL NASH Jul 01, 2016 12:01
--- NOTE | 2016-07-01 12:42 | Pulmonolgy Critical Care Note ---
Critical Care - Asmt/Plan Problems: (1) Respiratory failure requiring intubation (2) Acute encephalopathy (3) ATN (acute tubular necrosis) (4) Sepsis (5) Decubitus skin ulcer Assessment & Plan: on hip, left and right tuberosity of pelvis, sacral area and scrotum stage 2 Respiratory: monitor respiratory rate, adjust FIO2, CXR, weaning trial - tolerating weaning Renal: F/U I&O, keep IV fluid, other - laisx 40 q 8 hurs for 24 hours Infectious Disease: check cultures, continue antibiotics Gastrointestinal: continue feedings/current rate, hold feedings Endocrine: monitor blood sugar, check HgA1C, continue sliding scale insulin Hematologic: monitor H/H, transfuse if hgb<8.5 Neurologic: PRN Ativan, keep patient comfortable Affect: PRN ativan Disposition: keep in ICU Notes Reviewed: host/hostess head, cardio, 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, consultants Critical Care - Objective Last 24 Hour Vital Signs Date Time Temp Pulse Resp B/P Pulse Ox O2 Delivery O2 Flow Rate FiO2 07/01/16 12:00 82 07/01/16 12:00 98.3 82 21 118/55 95 Mechanical Ventilator 40 07/01/16 11:45 40 07/01/16 11:00 81 21 113/55 97 Mechanical Ventilator 40 07/01/16 10:55 80 17 40 07/01/16 10:50 40 07/01/16 10:20 40 07/01/16 10:00 100 07/01/16 10:00 81 14 40 07/01/16 10:00 80 21 117/62 97 Mechanical Ventilator 40 07/01/16 09:00 84 18 105/52 97 Mechanical Ventilator 40 07/01/16 09:00 40 07/01/16 08:00 99.2 84 18 105/53 97 Mechanical Ventilator 40 07/01/16 08:00 84 07/01/16 07:50 40 07/01/16 07:00 99.9 88 20 108/53 98 Mechanical Ventilator 40 07/01/16 06:45 89 17 40 07/01/16 06:35 99.9 07/01/16 06:07 99.9 93 20 139/64 98 Mechanical Ventilator 40 07/01/16 05:00 100.6 95 20 123/78 98 Mechanical Ventilator 40 07/01/16 04:46 96 23 40 07/01/16 04:00 86 07/01/16 04:00 86 20 166/62 98 Mechanical Ventilator 40 07/01/16 04:00 40 07/01/16 03:00 88 20 160/91 98 Mechanical Ventilator 40 07/01/16 02:43 99 26 40 07/01/16 02:00 99 20 162/91 98 Mechanical Ventilator 40 07/01/16 01:00 86 20 163/76 98 Mechanical Ventilator 40 07/01/16 00:52 90 22 40 07/01/16 00:00 88 07/01/16 00:00 40 06/30/16 23:59 99.9 88 20 125/78 98 Mechanical Ventilator 40 06/30/16 23:02 87 18 40 06/30/16 22:00 86 20 129/68 98 Mechanical Ventilator 40 06/30/16 21:29 86 19 40 06/30/16 21:00 89 21 121/59 100 Mechanical Ventilator 40 06/30/16 20:00 99.3 91 21 134/77 99 Mechanical Ventilator 40 06/30/16 20:00 91 06/30/16 20:00 40 06/30/16 19:00 85 17 135/74 100 Mechanical Ventilator 40 06/30/16 18:58 86 23 40 06/30/16 18:00 86 22 133/74 100 Mechanical Ventilator 40 06/30/16 17:00 85 20 136/67 100 Mechanical Ventilator 40 06/30/16 16:54 87 19 40 06/30/16 16:00 98.6 87 19 123/77 99 Mechanical Ventilator 40 06/30/16 16:00 40 06/30/16 16:00 87 06/30/16 15:20 82 15 40 06/30/16 15:00 82 21 93/68 100 Mechanical Ventilator 40 06/30/16 14:00 85 21 116/57 100 Mechanical Ventilator 40 06/30/16 13:09 93 29 40 06/30/16 13:00 92 21 137/62 100 Mechanical Ventilator 40 Status: awake Condition: critical HEENT: atraumatic, normocephalic Neck: full ROM Lungs: chest wall tender Heart: HR/BP stable, HR/BP unstable Abdomen: soft, non-tender, active bowel sounds Extremities: no C/C/E, edema Accucheck: 211 Critical Care - Subjective ROS Limited/Unobtainable: No ICU Day: 13 Intubation Day: 13 Condition: critical EKG Rhythm: Sinus Rhythm FI02: 40 Vent Support Breath Rate: 8 Vent Support Mode: CPAP Vent Tidal Volume: 600 Sputum Amount: Small PEEP: 5.0 PIP: 20 Secretions: 0 Tube Feeding Amount: 40 I&O: Intake and Output 06/30/16 07/01/16 19:00 07:00 Intake Total 1110 ml 740 ml Output Total 1370 ml 1050 ml Balance -260 ml -310 ml Free Water 200 ml 200 ml IV Total 430 ml Tube Feeding 480 ml 480 ml Other 60 ml Output Urine Total 1370 ml 1050 ml # Bowel Movements 2 CXR: pulmonary edema, ET in good position ET-Tube: 8.0 ET Position: 26 Labs: Laboratory Tests Test 07/01/16 04:00 07/01/16 11:36 White Blood Count 10.8 K/UL (4.8-10.8) Red Blood Count 3.14 M/UL (4.70-6.10) L Hemoglobin 9.8 G/DL (14.2-18.0) L Hematocrit 31.3 % (42.0-52.0) L Mean Corpuscular Volume 100 FL (80-99) H Mean Corpuscular Hemoglobin 31.1 PG (27.0-31.0) H Mean Corpuscular Hemoglobin Concent 31.3 G/DL (32.0-36.0) L Red Cell Distribution Width 15.2 % (11.6-14.8) H Platelet Count 268 K/UL (150-450) Mean Platelet Volume 5.9 FL (6.5-10.1) L Neutrophils (%) (Auto) 83.7 % (45.0-75.0) H Lymphocytes (%) (Auto) 8.4 % (20.0-45.0) L Monocytes (%) (Auto) 4.7 % (1.0-10.0) Eosinophils (%) (Auto) 2.4 % (0.0-3.0) Basophils (%) (Auto) 0.8 % (0.0-2.0) Sodium Level 149 mEQ/L (135-145) H Potassium Level 4.4 mEQ/L (3.4-4.9) Chloride Level 110 mEQ/L (98-107) H Carbon Dioxide Level 24 mEQ/L (20-30) Anion Gap 15 (5-15) Blood Urea Nitrogen 66 mg/dL (7-23) H Creatinine 2.7 mg/dL (0.7-1.2) H Estimat Glomerular Filtration Rate mL/min (>60) Glucose Level 204 mg/dL (74-106) H Calcium Level 8.6 mg/dL (8.6-10.2) Phosphorus Level 2.6 mg/dL (2.5-4.8) Magnesium Level 2.1 mg/dL (1.7-2.5) Total Bilirubin < 0.2 mg/dL (0.0-1.2) Aspartate Amino Transf (AST/SGOT) 25 U/L (5-40) Alanine Aminotransferase (ALT/SGPT) 17 U/L (3-41) Alkaline Phosphatase 100 U/L (40-129) Total Protein 5.4 g/dL (6.6-8.7) L Albumin 2.3 g/dL (3.5-5.2) L Globulin 3.1 g/dL Albumin/Globulin Ratio 0.7 (1.0-2.7) L Arterial Blood pH 7.437 (7.350-7.450) Arterial Blood Partial Pressure CO2 36.4 mmHg (35.0-45.0) Arterial Blood Partial Pressure O2 95.9 mmHg (75.0-100.0) Arterial Blood HCO3 24.0 mmol/L (22.0-26.0) Arterial Blood Oxygen Saturation 97.0 % (92.0-98.0) Arterial Blood Base Excess 0 Adama Test Positive AMADO SCHULER Jul 01, 2016 12:42
--- NOTE | 2016-07-01 12:49 | Diagnostic Imaging Report ---
Indication: DYSPNEA Technique: One view of the chest Comparison: 06/30/2016 Findings: Stable satisfactory position of endotracheal tube. Nasogastric tube projects beyond the edge of the imaging volume. Bilateral interstitial congestion persists, unchanged. Heart size is normal. Prior CABG. Right arm PICC again demonstrated findings are overall unchanged Impression: Unchanged, over one day, findings as above.
--- NOTE | 2016-07-01 15:59 | Electroencephalogram ---
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 The patient was noted to have a seizure in the early hours of 06/29/2016. The exact description of the seizure in unknown to us. The purpose of this EEG was to evaluate the patient for ictal or interictal phenomena. TECHNICAL NOTE: This EEG was performed on a [employer] with electrodes placed on the scalp according to the international 10-20 system. [id number] and [id number] montages were used. The EEG was technically satisfactory and was performed in the awake, drowsy, and sleep states. OBSERVATIONS: In the best awake state, the background activity consisted of 6.5 to 7 hertz theta activity. Drowsiness was characterized by irregular 4 to 5 hertz theta with intermixed delta frequencies. Stage 2 sleep was characterized by further slowing of the background in the delta and theta range, the presence of vertex waves, and 12 to 14 hertz sleep spindles. No definite focal abnormalities or epileptiform discharges were seen. IMPRESSION: This is an abnormal EEG characterized by slowing of the background in the 6.5 to 7 hertz theta range in the best awake state. COMMENT: The study is consistent with an encephalopathy of a moderate degree. Please note that no interictal discharges were seen during this EEG. Will Padilla M.D. DR: KIMBERLY JOB#: [id number] CC:
--- NOTE | 2016-07-01 16:19 | Wound Nurse Progress Note ---
Wound RN Progress Note Wound Consult New discoloration and a dry open wound on corner of right side of the lip noted. will monitor discoloration and cont apply A&D ointment on the lip. BRANDT SEXTON RN Jul 01, 2016 16:19
[2016-07-01 16:29] LABS: ABG ALLEN TEST POSITIVE; ABG BASE EXCESS 0.4; ABG PCO2 36.5 mmHg (35.0-45.0)
[2016-07-01] MEDS: Vitamin A&D Oint 2oz Tube TOPIC SCH ×2 (16:58→21:12)
--- NOTE | 2016-07-01 18:18 | Infectious Diseases Prog Note ---
Assessment/Plan Problems: (1) Sepsis Assessment & Plan: improving , on daptomycin ,meropenem , and micafungin , repeated blood culture is negative , and sputum culture grew junaid albicans only which is most likely colonization and not real. will continue current regimen for now pending further culture results. (2) Respiratory failure requiring intubation Assessment & Plan: with possible pneumonia, improved, S/P extubation, on daptomycin , meropenem, and micafungin, repeated CXR showed improvement , will contiue current regimen he is on, pulmonary is following (3) Decubital ulcer Assessment & Plan: was reevaluated again by Dr Huff, and no need for surgical debridement as per his recommendations ,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 continue local wound care , and off loading. (4) Anemia Assessment & Plan: S/P blood transfusion, monitor H&H, need to rule out GI source, recommend GI consult. (5) PVD (peripheral vascular disease) Assessment & Plan: S/P B/L AKA. (6) CKD (chronic kidney disease) Assessment & Plan: avoid nephrotoxic meds, monitor UOP, and renal function, renal is following (7) Heart transplant status Assessment & Plan: recommend to communicate with his heart transplant team at [facility] for further recommendation, and possible transfer to [facility] for higher level of care, continue transplant meds , and adjust as per his GFR. 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, will start him on valacyclovir renally dosed for 10 days Subjective Constitutional: Reports: fatigue Respiratory: Reports: dry cough Gastrointestinal/Abdominal: Reports: bloating, constipation Skin: Reports: ulcer Musculoskeletal: Reports: swelling Allergies: Coded Allergies: ADHESIVE TAPE (Verified Allergy, Unknown, Rash, 05/27/16) PLASTIC TAPE-COPIED FROM UNCODED SECTION PENICILLINS (Verified Allergy, Unknown, 06/20/16) PROCAINE (Verified Allergy, Unknown, Rash, 08/19/14) COPIED FRON UNCODED Subjective he was extubated successfully today, awake and coherent, responds well to verbal commands, no fever , no diarrhea, sating well on nasal canula Objective Vital Signs Last 24 Hour Vital Signs Date Time Temp Pulse Resp B/P Pulse Ox O2 Delivery O2 Flow Rate FiO2 07/01/16 17:00 83 34 126/48 97 Nasal Cannula 2.0 07/01/16 16:33 Nasal Cannula 2.0 28 07/01/16 16:00 2.0 07/01/16 16:00 84 07/01/16 16:00 98.1 85 25 141/55 94 Nasal Cannula 2.0 07/01/16 15:00 Nasal Cannula 2.0 28 07/01/16 15:00 87 20 07/01/16 15:00 87 26 127/58 100 Nasal Cannula 2.0 07/01/16 14:00 80 26 106/66 100 Mechanical Ventilator 40 07/01/16 13:00 82 21 105/50 97 Mechanical Ventilator 40 07/01/16 12:40 83 27 40 07/01/16 12:00 82 07/01/16 12:00 98.3 82 21 118/55 95 Mechanical Ventilator 40 07/01/16 11:45 40 07/01/16 11:30 83 20 07/01/16 11:00 81 21 113/55 97 Mechanical Ventilator 40 07/01/16 10:55 80 17 40 07/01/16 10:50 40 07/01/16 10:20 40 07/01/16 10:00 100 07/01/16 10:00 81 14 40 07/01/16 10:00 80 21 117/62 97 Mechanical Ventilator 40 07/01/16 09:00 84 18 105/52 97 Mechanical Ventilator 40 07/01/16 09:00 40 07/01/16 08:00 99.2 84 18 105/53 97 Mechanical Ventilator 40 07/01/16 08:00 84 07/01/16 07:50 40 07/01/16 07:00 99.9 88 20 108/53 98 Mechanical Ventilator 40 07/01/16 06:45 89 17 40 07/01/16 06:35 99.9 07/01/16 06:07 99.9 93 20 139/64 98 Mechanical Ventilator 40 07/01/16 05:00 100.6 95 20 123/78 98 Mechanical Ventilator 40 07/01/16 04:46 96 23 40 07/01/16 04:00 86 07/01/16 04:00 86 20 166/62 98 Mechanical Ventilator 40 07/01/16 04:00 40 07/01/16 03:00 88 20 160/91 98 Mechanical Ventilator 40 07/01/16 02:43 99 26 40 07/01/16 02:00 99 20 162/91 98 Mechanical Ventilator 40 07/01/16 01:00 86 20 163/76 98 Mechanical Ventilator 40 07/01/16 00:52 90 22 40 07/01/16 00:00 88 07/01/16 00:00 40 06/30/16 23:59 99.9 88 20 125/78 98 Mechanical Ventilator 40 06/30/16 23:02 87 18 40 06/30/16 22:00 86 20 129/68 98 Mechanical Ventilator 40 06/30/16 21:29 86 19 40 06/30/16 21:00 89 21 121/59 100 Mechanical Ventilator 40 06/30/16 20:00 99.3 91 21 134/77 99 Mechanical Ventilator 40 06/30/16 20:00 91 06/30/16 20:00 40 06/30/16 19:00 85 17 135/74 100 Mechanical Ventilator 40 06/30/16 18:58 86 23 40 Height (Feet): 5 Height (Inches): 8.00 Weight (Pounds): 193 General Appearance: WD/WN, no acute distress HEENT: normocephalic, atraumatic, anicteric, mucous membranes moist, supple, no JVD Respiratory/Chest: chest wall non-tender, normal breath sounds, no respiratory distress, no accessory muscle use, decreased breath sounds, crackles/rales Cardiovascular: normal peripheral pulses, normal rate, regular rhythm Abdomen: normal bowel sounds, soft, non tender, no organomegaly, no mass, distended Extremities: no cyanosis Skin: ulcers Laboratory Tests Test 07/01/16 04:00 07/01/16 11:36 07/01/16 16:22 White Blood Count 10.8 K/UL (4.8-10.8) Red Blood Count 3.14 M/UL (4.70-6.10) L Hemoglobin 9.8 G/DL (14.2-18.0) L Hematocrit 31.3 % (42.0-52.0) L Mean Corpuscular Volume 100 FL (80-99) H Mean Corpuscular Hemoglobin 31.1 PG (27.0-31.0) H Mean Corpuscular Hemoglobin Concent 31.3 G/DL (32.0-36.0) L Red Cell Distribution Width 15.2 % (11.6-14.8) H Platelet Count 268 K/UL (150-450) Mean Platelet Volume 5.9 FL (6.5-10.1) L Neutrophils (%) (Auto) 83.7 % (45.0-75.0) H Lymphocytes (%) (Auto) 8.4 % (20.0-45.0) L Monocytes (%) (Auto) 4.7 % (1.0-10.0) Eosinophils (%) (Auto) 2.4 % (0.0-3.0) Basophils (%) (Auto) 0.8 % (0.0-2.0) Sodium Level 149 mEQ/L (135-145) H Potassium Level 4.4 mEQ/L (3.4-4.9) Chloride Level 110 mEQ/L (98-107) H Carbon Dioxide Level 24 mEQ/L (20-30) Anion Gap 15 (5-15) Blood Urea Nitrogen 66 mg/dL (7-23) H Creatinine 2.7 mg/dL (0.7-1.2) H Estimat Glomerular Filtration Rate mL/min (>60) Glucose Level 204 mg/dL (74-106) H Calcium Level 8.6 mg/dL (8.6-10.2) Phosphorus Level 2.6 mg/dL (2.5-4.8) Magnesium Level 2.1 mg/dL (1.7-2.5) Total Bilirubin < 0.2 mg/dL (0.0-1.2) Aspartate Amino Transf (AST/SGOT) 25 U/L (5-40) Alanine Aminotransferase (ALT/SGPT) 17 U/L (3-41) Alkaline Phosphatase 100 U/L (40-129) Total Protein 5.4 g/dL (6.6-8.7) L Albumin 2.3 g/dL (3.5-5.2) L Globulin 3.1 g/dL Albumin/Globulin Ratio 0.7 (1.0-2.7) L Arterial Blood pH 7.437 (7.350-7.450) 7.441 (7.350-7.450) Arterial Blood Partial Pressure CO2 36.4 mmHg (35.0-45.0) 36.5 mmHg (35.0-45.0) Arterial Blood Partial Pressure O2 95.9 mmHg (75.0-100.0) 112.4 mmHg (75.0-100.0) H Arterial Blood HCO3 24.0 mmol/L (22.0-26.0) 24.3 mmol/L (22.0-26.0) Arterial Blood Oxygen Saturation 97.0 % (92.0-98.0) 97.0 % (92.0-98.0) Arterial Blood Base Excess 0 0.4 Adama Test Positive Positive Current Medications Medications (Trade) Dose Ordered Sig/Koffi Route PRN Reason Start Time Stop Time Status Last Admin Dose Admin Acetaminophen (Tylenol) 650 mg Q4H PRN ORAL fever 06/23/16 10:30 07/23/16 10:29 07/01/16 05:36 Acetaminophen/ Hydrocodone Bitart ([place] 5/325) 1 tab Q4H PRN ORAL Moderate Pain (Pain Scale 4-6) 06/30/16 10:45 07/07/16 10:44 Bisacodyl (Dulcolax) 10 mg DAILYPRN PRN RECTAL Constipation 2nd line 06/30/16 10:45 07/30/16 10:44 06/30/16 14:31 Clopidogrel Bisulfate (Plavix) 75 mg DAILY GT 06/25/16 10:22 07/23/16 08:59 07/01/16 08:20 Collagenase (Santyl) 1 applic DAILY TOPIC 06/23/16 09:00 07/23/16 08:59 07/01/16 08:21 Daptomycin 500 mg/ Sodium Chloride 55 ml @ 110 mls/hr Q48H IV 06/25/16 19:00 07/08/16 18:59 06/29/16 18:35 Dextrose (Dextrose 50%) STAT PRN IV Hypoglycemia 06/23/16 22:30 07/23/16 22:29 Docusate Sodium (Colace) 100 mg TID NG 06/24/16 09:00 07/24/16 08:59 07/01/16 17:54 Epoetin Mars (Procrit (for non ESRD use)) 7,000 units MON-WED-TUE SUBQ 06/23/16 21:00 07/23/16 20:59 06/30/16 20:34 Furosemide (Lasix) 40 mg EVERY 8 HOURS IV 07/01/16 13:00 07/31/16 12:59 07/01/16 12:50 Insulin Aspart (NovoLOG) EVERY 6 HOURS SUBQ 06/23/16 12:00 07/23/16 11:59 07/01/16 17:57 Lactobacillus Acidophilus (Culturelle) 1 tab THREE TIMES A DAY GT 06/25/16 10:23 07/23/16 08:59 07/01/16 17:54 Lorazepam (Ativan 2mg/ml 1ml) 0.5 mg Q4H PRN IV For Anxiety 06/30/16 10:45 07/07/16 10:44 06/30/16 18:01 Meropenem 500 mg/ Sodium Chloride 110 ml @ 220 mls/hr Q12HR IVPB 06/25/16 21:00 07/04/16 20:59 07/01/16 08:20 Micafungin Sodium/ Sodium Chloride (Mycamine/Sodium Chloride) 110 ml @ 110 mls/hr Q24H IVPB 06/26/16 11:00 07/03/16 10:59 07/01/16 11:37 Mineral Oil (Fleet's Mineral Oil Enema) 133 ml DAILYPRN PRN RECTAL Constipation 3rd Line 06/30/16 12:00 07/30/16 11:59 Mycophenolate Mofetil 500 mg 500 mg TWICE A DAY GT 06/25/16 10:24 07/23/16 08:59 07/01/16 17:54 Ondansetron HCl (Zofran) 4 mg Q6H PRN IVP Nausea & Vomiting 06/23/16 10:30 07/23/16 10:29 06/24/16 09:50 Pantoprazole (Protonix) 40 mg DAILY IVP 06/23/16 09:00 07/23/16 08:59 07/01/16 08:21 Polyethylene Glycol (Miralax) 17 gm DAILY PRN GT Constipation 06/25/16 10:23 07/23/16 08:59 06/29/16 22:42 Sodium Hypochlorite (Dakin's Full Strength) 1 applic DAILY TOPIC 06/23/16 09:00 07/23/16 08:59 07/01/16 08:21 Tacrolimus (Prograf) 1 mg DAILY@0800 ORAL 06/24/16 09:30 07/24/16 09:29 07/01/16 08:23 Tacrolimus (Prograf) 1 mg QHS ORAL 06/26/16 21:00 07/26/16 20:59 06/30/16 20:35 Vitamin A/Vitamin D (A & D Oint) 1 applic EVERY 12 HOURS TOPIC 07/01/16 17:00 07/31/16 16:59 07/01/16 16:58 Zolpidem Tartrate (Ambien) 5 mg HSPRN PRN GT Insomnia 06/25/16 10:24 07/23/16 22:29 Jose Mott M.D. Jul 01, 2016 18:18
[2016-07-01] MEDS: DAPTOmycin 500 MG in NS 55 ML IV SCH (19:09)
--- NOTE | 2016-07-01 19:26 | Cardiology Progress Note ---
Assessment/Plan Assessment/Plan hyperkalemia due ro renal failure and over use of benicar (two time the upper limit of max does recommended) acute on chronic renal filure s/p heart tx dm with endorgan disease pvd obesity anemia htn acute reparatory failure and acidosis hypernatremia presumed pneumonia hypotension ?volume related tachy cardia ? volume related extubated Prograf level yest 3.6 , extra 0.5 mg of prograf tonite will check level tomorrow received prbc tx a few lanre go would be tolerant of anemia since post transplant cr stabel echo ef 50-55% d/w rn bnp non diagnostic in light of renal insuf presume pneumonia on abx na will need more free water remains critical on duncan vent tele reviewed duration 45 min Subjective Cardiovascular: Denies: chest pain, lightheadedness Respiratory: Denies: shortness of breath Gastrointestinal/Abdominal: Denies: abdominal pain Genitourinary: Denies: burning Subjective extubated looks good Objective Last 24 Hour Vital Signs Date Time Temp Pulse Resp B/P Pulse Ox O2 Delivery O2 Flow Rate FiO2 07/01/16 18:00 86 25 133/60 95 Nasal Cannula 2.0 07/01/16 17:00 83 34 126/48 97 Nasal Cannula 2.0 07/01/16 16:33 Nasal Cannula 2.0 28 07/01/16 16:00 2.0 07/01/16 16:00 84 07/01/16 16:00 98.1 85 25 141/55 94 Nasal Cannula 2.0 07/01/16 15:00 Nasal Cannula 2.0 28 07/01/16 15:00 87 20 07/01/16 15:00 87 26 127/58 100 Nasal Cannula 2.0 07/01/16 14:00 80 26 106/66 100 Mechanical Ventilator 40 07/01/16 13:00 82 21 105/50 97 Mechanical Ventilator 40 07/01/16 12:40 83 27 40 07/01/16 12:00 82 07/01/16 12:00 98.3 82 21 118/55 95 Mechanical Ventilator 40 07/01/16 11:45 40 07/01/16 11:30 83 20 07/01/16 11:00 81 21 113/55 97 Mechanical Ventilator 40 07/01/16 10:55 80 17 40 07/01/16 10:50 40 07/01/16 10:20 40 07/01/16 10:00 100 07/01/16 10:00 81 14 40 07/01/16 10:00 80 21 117/62 97 Mechanical Ventilator 40 07/01/16 09:00 84 18 105/52 97 Mechanical Ventilator 40 07/01/16 09:00 40 07/01/16 08:00 99.2 84 18 105/53 97 Mechanical Ventilator 40 07/01/16 08:00 84 07/01/16 07:50 40 07/01/16 07:00 99.9 88 20 108/53 98 Mechanical Ventilator 40 07/01/16 06:45 89 17 40 07/01/16 06:35 99.9 07/01/16 06:07 99.9 93 20 139/64 98 Mechanical Ventilator 40 07/01/16 05:00 100.6 95 20 123/78 98 Mechanical Ventilator 40 07/01/16 04:46 96 23 40 07/01/16 04:00 86 07/01/16 04:00 86 20 166/62 98 Mechanical Ventilator 40 07/01/16 04:00 40 07/01/16 03:00 88 20 160/91 98 Mechanical Ventilator 40 07/01/16 02:43 99 26 40 07/01/16 02:00 99 20 162/91 98 Mechanical Ventilator 40 07/01/16 01:00 86 20 163/76 98 Mechanical Ventilator 40 07/01/16 00:52 90 22 40 07/01/16 00:00 88 07/01/16 00:00 40 06/30/16 23:59 99.9 88 20 125/78 98 Mechanical Ventilator 40 06/30/16 23:02 87 18 40 06/30/16 22:00 86 20 129/68 98 Mechanical Ventilator 40 06/30/16 21:29 86 19 40 06/30/16 21:00 89 21 121/59 100 Mechanical Ventilator 40 06/30/16 20:00 99.3 91 21 134/77 99 Mechanical Ventilator 40 06/30/16 20:00 91 06/30/16 20:00 40 General Appearance: no apparent distress, alert, patient on isolation Cardiovascular: normal rate, regular rhythm Respiratory/Chest: rhonchi - bilaterally Abdomen: normal bowel sounds, non tender, soft Extremities: no swelling Intake and Output 06/30/16 07/01/16 19:00 07:00 Intake Total 1110 ml 740 ml Output Total 1370 ml 1050 ml Balance -260 ml -310 ml Free Water 200 ml 200 ml IV Total 430 ml Tube Feeding 480 ml 480 ml Other 60 ml Output Urine Total 1370 ml 1050 ml # Bowel Movements 2 Laboratory Tests Test 07/01/16 04:00 07/01/16 11:36 07/01/16 16:22 White Blood Count 10.8 K/UL (4.8-10.8) Red Blood Count 3.14 M/UL (4.70-6.10) L Hemoglobin 9.8 G/DL (14.2-18.0) L Hematocrit 31.3 % (42.0-52.0) L Mean Corpuscular Volume 100 FL (80-99) H Mean Corpuscular Hemoglobin 31.1 PG (27.0-31.0) H Mean Corpuscular Hemoglobin Concent 31.3 G/DL (32.0-36.0) L Red Cell Distribution Width 15.2 % (11.6-14.8) H Platelet Count 268 K/UL (150-450) Mean Platelet Volume 5.9 FL (6.5-10.1) L Neutrophils (%) (Auto) 83.7 % (45.0-75.0) H Lymphocytes (%) (Auto) 8.4 % (20.0-45.0) L Monocytes (%) (Auto) 4.7 % (1.0-10.0) Eosinophils (%) (Auto) 2.4 % (0.0-3.0) Basophils (%) (Auto) 0.8 % (0.0-2.0) Sodium Level 149 mEQ/L (135-145) H Potassium Level 4.4 mEQ/L (3.4-4.9) Chloride Level 110 mEQ/L (98-107) H Carbon Dioxide Level 24 mEQ/L (20-30) Anion Gap 15 (5-15) Blood Urea Nitrogen 66 mg/dL (7-23) H Creatinine 2.7 mg/dL (0.7-1.2) H Estimat Glomerular Filtration Rate mL/min (>60) Glucose Level 204 mg/dL (74-106) H Calcium Level 8.6 mg/dL (8.6-10.2) Phosphorus Level 2.6 mg/dL (2.5-4.8) Magnesium Level 2.1 mg/dL (1.7-2.5) Total Bilirubin < 0.2 mg/dL (0.0-1.2) Aspartate Amino Transf (AST/SGOT) 25 U/L (5-40) Alanine Aminotransferase (ALT/SGPT) 17 U/L (3-41) Alkaline Phosphatase 100 U/L (40-129) Total Protein 5.4 g/dL (6.6-8.7) L Albumin 2.3 g/dL (3.5-5.2) L Globulin 3.1 g/dL Albumin/Globulin Ratio 0.7 (1.0-2.7) L Arterial Blood pH 7.437 (7.350-7.450) 7.441 (7.350-7.450) Arterial Blood Partial Pressure CO2 36.4 mmHg (35.0-45.0) 36.5 mmHg (35.0-45.0) Arterial Blood Partial Pressure O2 95.9 mmHg (75.0-100.0) 112.4 mmHg (75.0-100.0) H Arterial Blood HCO3 24.0 mmol/L (22.0-26.0) 24.3 mmol/L (22.0-26.0) Arterial Blood Oxygen Saturation 97.0 % (92.0-98.0) 97.0 % (92.0-98.0) Arterial Blood Base Excess 0 0.4 Adama Test Positive Positive HAILEE PATEL Jul 01, 2016 19:26
[2016-07-02] VITALS (24 sets, daily range): BP systolic 99–156; BP diastolic 50–102
[2016-07-02] MEDS: NovoLOG Insulin Flexpen SUBQ SCH ×4 (00:29→18:16)
[2016-07-02] MEDS: LORazepam Inj 2mg/ml 1ml IV PRN (03:51)
[2016-07-02 05:46] LABS: BASOPHILS % (AUTO) 0.6 % (0.0-2.0); EOSINOPHILS % (AUTO) 3.4 % (0.0-3.0); LYMPHOCYTES % (AUTO) 12.8 % (20.0-45.0); MEAN CORPUSCULAR HEMOGLOBIN 29.3 PG (27.0-31.0); MEAN CORPUSCULAR VOLUME 98 FL (80-99); MEAN PLATELET VOLUME 6.4 FL (6.5-10.1); MONOCYTES % (AUTO) 4.5 % (1.0-10.0); NEUTROPHILS % (AUTO) 78.7 % (45.0-75.0); PLATELET COUNT 324 K/UL (150-450); RED BLOOD COUNT 3.46 M/UL (4.70-6.10); RED CELL DISTRIBUTION WIDTH 15.2 % (11.6-14.8); WHITE BLOOD COUNT 9.7 K/UL (4.8-10.8)
[2016-07-02 06:14] LABS: ALANINE AMINOTRANSFERASE 18 U/L (3-41); ALBUMIN/GLOBULIN RATIO 0.7 (1.0-2.7); ANION GAP 16 (5-15); ASPARTATE AMINO TRANSFERASE 25 U/L (5-40); CARBON DIOXIDE 25 mEQ/L (20-30); CHLORIDE 111 mEQ/L (98-107); CREATININE 2.6 mg/dL (0.7-1.2); HEMOLYSIS 8; MAGNESIUM 1.9 mg/dL (1.7-2.5); PHOSPHORUS 3.2 mg/dL (2.5-4.8); POTASSIUM 4.8 mEQ/L (3.4-4.9); SODIUM 152 mEQ/L (135-145); TOTAL PROTEIN 5.7 g/dL (6.6-8.7)
[2016-07-02 08:01] LABS: ABG ALLEN TEST POSITIVE; ABG BASE EXCESS 0.7; ABG PCO2 31.8 mmHg (35.0-45.0)
[2016-07-02 09:03] LABS: CMV DNA PCR QUANT BLOOD/CSF 277 IU/mL (Negative); LOG 10 CMV QN PCR 2.442 (.)
[2016-07-02] MEDS: Pantoprazole Inj IVP SCH (09:08)
[2016-07-02] MEDS: Meropenem 500 MG in NS 110 ML IVPB SCH ×2 (09:08→20:59)
[2016-07-02] MEDS: Lactobacillus-GG tablet GT SCH ×3 (09:08→19:04)
[2016-07-02] MEDS: Mycophenolate 250mg cap GT SCH ×2 (09:09→19:03)
[2016-07-02] MEDS: Vitamin A&D Oint 2oz Tube TOPIC SCH ×2 (09:09→21:18)
[2016-07-02] MEDS: Docusate 100mg tablet NG SCH ×3 (09:09→19:04)
[2016-07-02] MEDS: Dakin's 0.5% (Full Strength) 16oz TOPIC SCH (09:09)
--- NOTE | 2016-07-02 10:12 | Pulmonolgy Critical Care Note ---
Critical Care - Asmt/Plan Problems: (1) Respiratory failure requiring intubation (2) Acute encephalopathy (3) ATN (acute tubular necrosis) (4) Sepsis (5) Decubitus skin ulcer Assessment & Plan: on hip, left and right tuberosity of pelvis, sacral area and scrotum stage 2 Respiratory: monitor respiratory rate, adjust FIO2, other - tolerating extubation Cardiac: continue to monitor HR/BP Renal: F/U I&O, check electrolytes Infectious Disease: check cultures, continue antibiotics Gastrointestinal: other - swallow study Endocrine: monitor blood sugar, check HgA1C, continue sliding scale insulin Hematologic: monitor H/H, transfuse if hgb<8.5 Neurologic: PRN Ativan, keep patient comfortable Prophylaxis: Protonix Disposition: keep in ICU Notes Reviewed: 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, consultants, director of casework departmentmerchandise team manager - Objective Last 24 Hour Vital Signs Date Time Temp Pulse Resp B/P Pulse Ox O2 Delivery O2 Flow Rate FiO2 07/02/16 08:00 97.1 100 20 136/68 100 Nasal Cannula 4.0 07/02/16 08:00 100 07/02/16 06:55 101 20 154/83 100 Nasal Cannula 4.0 07/02/16 06:00 100 20 156/69 100 Nasal Cannula 4.0 07/02/16 05:00 99 20 151/82 100 Nasal Cannula 4.0 07/02/16 04:00 99 07/02/16 04:00 98.0 99 20 146/82 100 Nasal Cannula 4.0 07/02/16 03:00 100 20 146/84 100 Nasal Cannula 4.0 07/02/16 02:00 93 20 124/98 100 Nasal Cannula 4.0 07/02/16 01:00 88 20 139/61 100 Nasal Cannula 4.0 07/02/16 00:00 87 07/02/16 00:00 97.7 87 20 124/65 100 Nasal Cannula 2.0 07/01/16 23:00 88 20 134/66 100 Nasal Cannula 2.0 07/01/16 22:00 89 25 143/65 100 Nasal Cannula 2.0 07/01/16 21:00 86 28 122/60 97 Nasal Cannula 2.0 07/01/16 20:00 83 07/01/16 20:00 98.0 83 28 120/71 95 Nasal Cannula 2.0 07/01/16 19:31 86 16 Nasal Cannula 3.0 32 07/01/16 19:26 99 Nasal Cannula 3.0 32 07/01/16 19:00 86 25 150/61 95 Nasal Cannula 2.0 07/01/16 18:00 86 25 133/60 95 Nasal Cannula 2.0 07/01/16 17:00 83 34 126/48 97 Nasal Cannula 2.0 07/01/16 16:33 Nasal Cannula 2.0 28 07/01/16 16:00 2.0 07/01/16 16:00 84 07/01/16 16:00 98.1 85 25 141/55 94 Nasal Cannula 2.0 07/01/16 15:00 Nasal Cannula 2.0 28 07/01/16 15:00 87 20 07/01/16 15:00 87 26 127/58 100 Nasal Cannula 2.0 07/01/16 14:00 80 26 106/66 100 Mechanical Ventilator 40 07/01/16 13:00 82 21 105/50 97 Mechanical Ventilator 40 07/01/16 12:40 83 27 40 07/01/16 12:00 82 07/01/16 12:00 98.3 82 21 118/55 95 Mechanical Ventilator 40 07/01/16 11:45 40 07/01/16 11:30 83 20 07/01/16 11:00 81 21 113/55 97 Mechanical Ventilator 40 07/01/16 10:55 80 17 40 07/01/16 10:50 40 07/01/16 10:20 40 Status: awake Condition: critical HEENT: atraumatic Neck: full ROM Lungs: clear Heart: HR/BP stable, HR/BP unstable Abdomen: feeding tube Extremities: no C/C/E, edema Decubiti: stage Accucheck: 173 Critical Care - Subjective ROS Limited/Unobtainable: No Interval Events: extubated yesterday, tolerating well, will have video swallow today. FI02: 32 Vent Support Breath Rate: 8 Vent Support Mode: CPAP Vent Tidal Volume: 600 Sputum Amount: None PEEP: 5.0 PIP: 17 Tube Feeding Amount: 40 I&O: Intake and Output 07/01/16 07/02/16 19:00 07:00 Intake Total 990 ml 895 ml Output Total 1595 ml 2440 ml Balance -605 ml -1545 ml Free Water 200 ml 200 ml IV Total 220 ml 165 ml Tube Feeding 480 ml 480 ml Other 90 ml 50 ml Output Urine Total 1595 ml 2440 ml # Bowel Movements 3 CXR: pulmonary edema ET-Tube: 8.0 ET Position: 26 Labs: Laboratory Tests Test 07/01/16 11:36 07/01/16 16:22 07/02/16 04:00 07/02/16 07:42 Arterial Blood pH 7.437 (7.350-7.450) 7.441 (7.350-7.450) 7.488 (7.350-7.450) Arterial Blood Partial Pressure CO2 36.4 mmHg (35.0-45.0) 36.5 mmHg (35.0-45.0) 31.8 mmHg (35.0-45.0) L Arterial Blood Partial Pressure O2 95.9 mmHg (75.0-100.0) 112.4 mmHg (75.0-100.0) H 71.9 mmHg (75.0-100.0) L Arterial Blood HCO3 24.0 mmol/L (22.0-26.0) 24.3 mmol/L (22.0-26.0) 23.6 mmol/L (22.0-26.0) Arterial Blood Oxygen Saturation 97.0 % (92.0-98.0) 97.0 % (92.0-98.0) 95.3 % (92.0-98.0) Arterial Blood Base Excess 0 0.4 0.7 Adama Test Positive Positive Positive White Blood Count 9.7 K/UL (4.8-10.8) Red Blood Count 3.46 M/UL (4.70-6.10) L Hemoglobin 10.1 G/DL (14.2-18.0) L Hematocrit 33.7 % (42.0-52.0) L Mean Corpuscular Volume 98 FL (80-99) Mean Corpuscular Hemoglobin 29.3 PG (27.0-31.0) Mean Corpuscular Hemoglobin Concent 30.0 G/DL (32.0-36.0) L Red Cell Distribution Width 15.2 % (11.6-14.8) H Platelet Count 324 K/UL (150-450) Mean Platelet Volume 6.4 FL (6.5-10.1) L Neutrophils (%) (Auto) 78.7 % (45.0-75.0) H Lymphocytes (%) (Auto) 12.8 % (20.0-45.0) L Monocytes (%) (Auto) 4.5 % (1.0-10.0) Eosinophils (%) (Auto) 3.4 % (0.0-3.0) H Basophils (%) (Auto) 0.6 % (0.0-2.0) Sodium Level 152 mEQ/L (135-145) H Potassium Level 4.8 mEQ/L (3.4-4.9) Chloride Level 111 mEQ/L (98-107) H Carbon Dioxide Level 25 mEQ/L (20-30) Anion Gap 16 (5-15) H Blood Urea Nitrogen 63 mg/dL (7-23) H Creatinine 2.6 mg/dL (0.7-1.2) H Estimat Glomerular Filtration Rate mL/min (>60) Glucose Level 212 mg/dL (74-106) H Calcium Level 9.0 mg/dL (8.6-10.2) Phosphorus Level 3.2 mg/dL (2.5-4.8) Magnesium Level 1.9 mg/dL (1.7-2.5) Total Bilirubin 0.2 mg/dL (0.0-1.2) Aspartate Amino Transf (AST/SGOT) 25 U/L (5-40) Alanine Aminotransferase (ALT/SGPT) 18 U/L (3-41) Alkaline Phosphatase 116 U/L (40-129) Total Protein 5.7 g/dL (6.6-8.7) L Albumin 2.4 g/dL (3.5-5.2) L Globulin 3.3 g/dL Albumin/Globulin Ratio 0.7 (1.0-2.7) L AMADO SCHULER Jul 02, 2016 10:12
[2016-07-02] MEDS ORDERED: Norco 5mg/325mg tab GT PRN (10:40)
--- NOTE | 2016-07-02 11:32 | General Progress Note ---
Assessment/Plan Status: progressing Assessment/Plan Overall he is more stable. Wound of the sacrum will still need debridement but is not emergent. He still needs to be optimized medically. Consider bedside debridement over the next few days as his condition continues to improve.For now , recommend continuing the dressing orders as prescribed, IV antibiotics, and ensuring that he remains extubated. Subjective Date patient seen: Jul 02, 2016 Time patient seen: 11:26 ROS Limited/Unobtainable: Yes Allergies: Coded Allergies: ADHESIVE TAPE (Verified Allergy, Unknown, Rash, 05/27/16) PLASTIC TAPE-COPIED FROM UNCODED SECTION PENICILLINS (Verified Allergy, Unknown, 06/20/16) PROCAINE (Verified Allergy, Unknown, Rash, 08/19/14) COPIED FRON UNCODED Subjective Follow up evaluation on patient with multiple pressure ulcers of the trunk. Since he was last seen by me, patient was extubated on 07/01/16. His condition has stabilized. He is currently afebrile with normal WBC. He is awake and alert. Objective Last 24 Hour Vital Signs Date Time Temp Pulse Resp B/P Pulse Ox O2 Delivery O2 Flow Rate FiO2 07/02/16 11:00 92 21 112/63 100 Nasal Cannula 4.0 07/02/16 10:00 93 21 115/53 100 Nasal Cannula 4.0 07/02/16 09:00 101 20 120/83 100 Nasal Cannula 4.0 07/02/16 08:00 97.1 100 20 136/68 100 Nasal Cannula 4.0 07/02/16 08:00 100 07/02/16 07:05 92 18 Nasal Cannula 2.0 28 07/02/16 07:05 Nasal Cannula 2.0 28 07/02/16 07:05 95 Nasal Cannula 2.0 28 07/02/16 06:55 101 20 154/83 100 Nasal Cannula 4.0 07/02/16 06:00 100 20 156/69 100 Nasal Cannula 4.0 07/02/16 05:00 99 20 151/82 100 Nasal Cannula 4.0 07/02/16 04:00 99 07/02/16 04:00 98.0 99 20 146/82 100 Nasal Cannula 4.0 07/02/16 03:00 100 20 146/84 100 Nasal Cannula 4.0 07/02/16 02:00 93 20 124/98 100 Nasal Cannula 4.0 07/02/16 01:00 88 20 139/61 100 Nasal Cannula 4.0 07/02/16 00:00 87 07/02/16 00:00 97.7 87 20 124/65 100 Nasal Cannula 2.0 07/01/16 23:00 88 20 134/66 100 Nasal Cannula 2.0 07/01/16 22:00 89 25 143/65 100 Nasal Cannula 2.0 07/01/16 21:00 86 28 122/60 97 Nasal Cannula 2.0 07/01/16 20:00 83 07/01/16 20:00 98.0 83 28 120/71 95 Nasal Cannula 2.0 07/01/16 19:31 86 16 Nasal Cannula 3.0 32 07/01/16 19:26 99 Nasal Cannula 3.0 32 07/01/16 19:00 86 25 150/61 95 Nasal Cannula 2.0 07/01/16 18:00 86 25 133/60 95 Nasal Cannula 2.0 07/01/16 17:00 83 34 126/48 97 Nasal Cannula 2.0 07/01/16 16:33 Nasal Cannula 2.0 28 07/01/16 16:00 2.0 07/01/16 16:00 84 07/01/16 16:00 98.1 85 25 141/55 94 Nasal Cannula 2.0 07/01/16 15:00 Nasal Cannula 2.0 28 07/01/16 15:00 87 20 07/01/16 15:00 87 26 127/58 100 Nasal Cannula 2.0 07/01/16 14:00 80 26 106/66 100 Mechanical Ventilator 40 07/01/16 13:00 82 21 105/50 97 Mechanical Ventilator 40 07/01/16 12:40 83 27 40 07/01/16 12:00 82 07/01/16 12:00 98.3 82 21 118/55 95 Mechanical Ventilator 40 07/01/16 11:45 40 07/01/16 11:30 83 20 Intake and Output 07/01/16 07/02/16 19:00 07:00 Intake Total 990 ml 895 ml Output Total 1595 ml 2440 ml Balance -605 ml -1545 ml Free Water 200 ml 200 ml IV Total 220 ml 165 ml Tube Feeding 480 ml 480 ml Other 90 ml 50 ml Output Urine Total 1595 ml 2440 ml # Bowel Movements 3 Laboratory Tests 07/01/16 11:36: Arterial Blood pH 7.437, Arterial Blood Partial Pressure CO2 36.4, Arterial Blood Partial Pressure O2 95.9, Arterial Blood HCO3 24.0, Arterial Blood Oxygen Saturation 97.0, Arterial Blood Base Excess 0, Admaa Test Positive 07/01/16 16:22: Arterial Blood pH 7.441, Arterial Blood Partial Pressure CO2 36.5, Arterial Blood Partial Pressure O2 112.4H, Arterial Blood HCO3 24.3, Arterial Blood Oxygen Saturation 97.0, Arterial Blood Base Excess 0.4, Adama Test Positive 07/02/16 04:00: White Blood Count 9.7, Red Blood Count 3.46L, Hemoglobin 10.1L, Hematocrit 33.7L , Mean Corpuscular Volume 98, Mean Corpuscular Hemoglobin 29.3, Mean Corpuscular Hemoglobin Concent 30.0L, Red Cell Distribution Width 15.2H, Platelet Count 324, Mean Platelet Volume 6.4L, Neutrophils (%) (Auto) 78.7H, Lymphocytes (%) (Auto) 12.8L, Monocytes (%) (Auto) 4.5, Eosinophils (%) (Auto) 3.4H, Basophils (%) (Auto) 0.6, Sodium Level 152H, Potassium Level 4.8, Chloride Level 111H, Carbon Dioxide Level 25, Anion Gap 16H, Blood Urea Nitrogen 63H, Creatinine 2.6H, Estimat Glomerular Filtration Rate , Glucose Level 212H, Calcium Level 9.0, Phosphorus Level 3.2, Magnesium Level 1.9, Total Bilirubin 0.2, Aspartate Amino Transf (AST/SGOT) 25, Alanine Aminotransferase ( ALT/SGPT) 18, Alkaline Phosphatase 116, Total Protein 5.7L, Albumin 2.4L, Globulin 3.3, Albumin/Globulin Ratio 0.7L 07/02/16 07:42: Arterial Blood pH 7.488H, Arterial Blood Partial Pressure CO2 31.8L, Arterial Blood Partial Pressure O2 71.9L, Arterial Blood HCO3 23.6, Arterial Blood Oxygen Saturation 95.3, Arterial Blood Base Excess 0.7, Adama Test Positive Height (Feet): 5 Height (Inches): 8.00 Weight (Pounds): 193 General Appearance: no apparent distress, alert Abdomen: non tender, soft Extremities: other - b/l UE with swelling but LUE is more swollen. Skin: other - Sacral ulcer is stable. No worsnening of the ulcer extension to the left buttock. Some fibrotic debris at the base. No odor or purulent drainage. Left buttock tissue that has demarcated remains stable with no evidence of abscess. Right ischial ulcer with bone exposed. Base with no slough but fibrotic debris is present. Right trochanter ulcer with eschar present. Eschar is adherent. JOE MARTEL Jul 02, 2016 11:32
--- NOTE | 2016-07-02 11:49 | Cardiology Report ---
APPROVED REPORT EKG Measurement Heart [id number] KS [id number] Normal sinus rhythm Low voltage QRS Borderline ECG
--- NOTE | 2016-07-02 11:59 | Cardiology Report ---
APPROVED REPORT EKG Measurement Heart [id number] MD [id number] Normal sinus rhythm Low voltage QRS Borderline ECG
[2016-07-02] MEDS: Micafungin 100 MG in NS 110 ML IVPB SCH (12:28)
--- NOTE | 2016-07-02 13:41 | Cardiology Report ---
APPROVED REPORT EKG Measurement Heart [id number] Normal sinus rhythm Low voltage QRS Borderline ECG
--- NOTE | 2016-07-02 14:57 | General Progress Note ---
Assessment/Plan Status: stable - from renal stand- Status Narrative Extubated day 1- Cr 2.6 stable Assessment/Plan status: Acute Renal Failure- Cr stable Acute respiratory failure- septic shock , metabolic acidosis Superimposed on CRI due to DM / HTN PVD s/p amputation- Severe Anemia s/p Heart transplant sacral decub plan: extubated 07/01 Mag supplement as needed transfused slow Hydrate- free water, D5 watch CHF Sxs wound care- monitor renal parameters- optimize cardiac and pulm status- wean as possible. avoid nephrotoxics per ID and cardiology discussed with RN Subjective ROS Limited/Unobtainable: No Constitutional: Reports: malaise, weakness Allergies: Coded Allergies: ADHESIVE TAPE (Verified Allergy, Unknown, Rash, 05/27/16) PLASTIC TAPE-COPIED FROM UNCODED SECTION PENICILLINS (Verified Allergy, Unknown, 06/20/16) PROCAINE (Verified Allergy, Unknown, Rash, 08/19/14) COPIED FRON UNCODED Objective Last 24 Hour Vital Signs Date Time Temp Pulse Resp B/P Pulse Ox O2 Delivery O2 Flow Rate FiO2 07/02/16 14:00 86 22 115/54 100 Nasal Cannula 2.0 07/02/16 13:00 89 22 108/50 100 Nasal Cannula 2.0 07/02/16 12:00 90 07/02/16 12:00 97.9 90 21 114/62 100 Nasal Cannula 2.0 07/02/16 11:00 92 21 112/63 100 Nasal Cannula 4.0 07/02/16 10:00 93 21 115/53 100 Nasal Cannula 4.0 07/02/16 09:00 101 20 120/83 100 Nasal Cannula 4.0 07/02/16 08:00 97.1 100 20 136/68 100 Nasal Cannula 4.0 07/02/16 08:00 100 07/02/16 07:05 92 18 Nasal Cannula 2.0 28 07/02/16 07:05 Nasal Cannula 2.0 28 07/02/16 07:05 95 Nasal Cannula 2.0 28 07/02/16 06:55 101 20 154/83 100 Nasal Cannula 4.0 07/02/16 06:00 100 20 156/69 100 Nasal Cannula 4.0 07/02/16 05:00 99 20 151/82 100 Nasal Cannula 4.0 07/02/16 04:00 99 07/02/16 04:00 98.0 99 20 146/82 100 Nasal Cannula 4.0 07/02/16 03:00 100 20 146/84 100 Nasal Cannula 4.0 07/02/16 02:00 93 20 124/98 100 Nasal Cannula 4.0 07/02/16 01:00 88 20 139/61 100 Nasal Cannula 4.0 07/02/16 00:00 87 07/02/16 00:00 97.7 87 20 124/65 100 Nasal Cannula 2.0 07/01/16 23:00 88 20 134/66 100 Nasal Cannula 2.0 07/01/16 22:00 89 25 143/65 100 Nasal Cannula 2.0 07/01/16 21:00 86 28 122/60 97 Nasal Cannula 2.0 07/01/16 20:00 83 07/01/16 20:00 98.0 83 28 120/71 95 Nasal Cannula 2.0 07/01/16 19:31 86 16 Nasal Cannula 3.0 32 07/01/16 19:26 99 Nasal Cannula 3.0 32 07/01/16 19:00 86 25 150/61 95 Nasal Cannula 2.0 07/01/16 18:00 86 25 133/60 95 Nasal Cannula 2.0 07/01/16 17:00 83 34 126/48 97 Nasal Cannula 2.0 07/01/16 16:33 Nasal Cannula 2.0 28 07/01/16 16:00 2.0 07/01/16 16:00 84 07/01/16 16:00 98.1 85 25 141/55 94 Nasal Cannula 2.0 07/01/16 15:00 Nasal Cannula 2.0 28 07/01/16 15:00 87 20 07/01/16 15:00 87 26 127/58 100 Nasal Cannula 2.0 Intake and Output 07/01/16 07/02/16 19:00 07:00 Intake Total 990 ml 895 ml Output Total 1595 ml 2440 ml Balance -605 ml -1545 ml Free Water 200 ml 200 ml IV Total 220 ml 165 ml Tube Feeding 480 ml 480 ml Other 90 ml 50 ml Output Urine Total 1595 ml 2440 ml # Bowel Movements 3 Laboratory Tests 07/01/16 16:22: Arterial Blood pH 7.441, Arterial Blood Partial Pressure CO2 36.5, Arterial Blood Partial Pressure O2 112.4H, Arterial Blood HCO3 24.3, Arterial Blood Oxygen Saturation 97.0, Arterial Blood Base Excess 0.4, Adama Test Positive 07/02/16 04:00: White Blood Count 9.7, Red Blood Count 3.46L, Hemoglobin 10.1L, Hematocrit 33.7L , Mean Corpuscular Volume 98, Mean Corpuscular Hemoglobin 29.3, Mean Corpuscular Hemoglobin Concent 30.0L, Red Cell Distribution Width 15.2H, Platelet Count 324, Mean Platelet Volume 6.4L, Neutrophils (%) (Auto) 78.7H, Lymphocytes (%) (Auto) 12.8L, Monocytes (%) (Auto) 4.5, Eosinophils (%) (Auto) 3.4H, Basophils (%) (Auto) 0.6, Sodium Level 152H, Potassium Level 4.8, Chloride Level 111H, Carbon Dioxide Level 25, Anion Gap 16H, Blood Urea Nitrogen 63H, Creatinine 2.6H, Estimat Glomerular Filtration Rate , Glucose Level 212H, Calcium Level 9.0, Phosphorus Level 3.2, Magnesium Level 1.9, Total Bilirubin 0.2, Aspartate Amino Transf (AST/SGOT) 25, Alanine Aminotransferase ( ALT/SGPT) 18, Alkaline Phosphatase 116, Total Protein 5.7L, Albumin 2.4L, Globulin 3.3, Albumin/Globulin Ratio 0.7L 07/02/16 07:42: Arterial Blood pH 7.488H, Arterial Blood Partial Pressure CO2 31.8L, Arterial Blood Partial Pressure O2 71.9L, Arterial Blood HCO3 23.6, Arterial Blood Oxygen Saturation 95.3, Arterial Blood Base Excess 0.7, Adama Test Positive Height (Feet): 5 Height (Inches): 8.00 Weight (Pounds): 193 EENT: other - extubated Cardiovascular: tachycardia, arrhythmia Respiratory/Chest: decreased breath sounds Abdomen: soft, distended Objective no other changes in PE BRIJESH CALDERON Jul 02, 2016 14:57
--- NOTE | 2016-07-02 15:08 | Neurology Progress Note ---
Interim History Interim History Interim History Mr. Ralph is awake and looks brighter. He has had no further seizures or seizure-like phenomena. He has been extubated. He has a nasty disposition. He continues to be unable to cooperate with a mental status examination. He is still generally weak. Review of Systems Neuro Review of Systems Unable to obtain. Objective Physical Exam Last Vital Signs Date Time Temp Pulse Resp B/P Pulse Ox O2 Delivery O2 Flow Rate FiO2 07/02/16 14:00 86 22 115/54 100 Nasal Cannula 2.0 07/02/16 12:00 97.9 07/02/16 07:05 28 Laboratory Tests Test 07/01/16 16:22 07/02/16 04:00 07/02/16 07:42 Arterial Blood pH 7.441 (7.350-7.450) 7.488 (7.350-7.450) Arterial Blood Partial Pressure CO2 36.5 mmHg (35.0-45.0) 31.8 mmHg (35.0-45.0) L Arterial Blood Partial Pressure O2 112.4 mmHg (75.0-100.0) H 71.9 mmHg (75.0-100.0) L Arterial Blood HCO3 24.3 mmol/L (22.0-26.0) 23.6 mmol/L (22.0-26.0) Arterial Blood Oxygen Saturation 97.0 % (92.0-98.0) 95.3 % (92.0-98.0) Arterial Blood Base Excess 0.4 0.7 Adama Test Positive Positive White Blood Count 9.7 K/UL (4.8-10.8) Red Blood Count 3.46 M/UL (4.70-6.10) L Hemoglobin 10.1 G/DL (14.2-18.0) L Hematocrit 33.7 % (42.0-52.0) L Mean Corpuscular Volume 98 FL (80-99) Mean Corpuscular Hemoglobin 29.3 PG (27.0-31.0) Mean Corpuscular Hemoglobin Concent 30.0 G/DL (32.0-36.0) L Red Cell Distribution Width 15.2 % (11.6-14.8) H Platelet Count 324 K/UL (150-450) Mean Platelet Volume 6.4 FL (6.5-10.1) L Neutrophils (%) (Auto) 78.7 % (45.0-75.0) H Lymphocytes (%) (Auto) 12.8 % (20.0-45.0) L Monocytes (%) (Auto) 4.5 % (1.0-10.0) Eosinophils (%) (Auto) 3.4 % (0.0-3.0) H Basophils (%) (Auto) 0.6 % (0.0-2.0) Sodium Level 152 mEQ/L (135-145) H Potassium Level 4.8 mEQ/L (3.4-4.9) Chloride Level 111 mEQ/L (98-107) H Carbon Dioxide Level 25 mEQ/L (20-30) Anion Gap 16 (5-15) H Blood Urea Nitrogen 63 mg/dL (7-23) H Creatinine 2.6 mg/dL (0.7-1.2) H Estimat Glomerular Filtration Rate mL/min (>60) Glucose Level 212 mg/dL (74-106) H Calcium Level 9.0 mg/dL (8.6-10.2) Phosphorus Level 3.2 mg/dL (2.5-4.8) Magnesium Level 1.9 mg/dL (1.7-2.5) Total Bilirubin 0.2 mg/dL (0.0-1.2) Aspartate Amino Transf (AST/SGOT) 25 U/L (5-40) Alanine Aminotransferase (ALT/SGPT) 18 U/L (3-41) Alkaline Phosphatase 116 U/L (40-129) Total Protein 5.7 g/dL (6.6-8.7) L Albumin 2.4 g/dL (3.5-5.2) L Globulin 3.3 g/dL Albumin/Globulin Ratio 0.7 (1.0-2.7) L Neurologic Exam Objective PHYSICAL EXAMINATION: GENERAL: He is a well-developed, well-nourished, obese, gentleman, lying in an ICU bed. He has a nasty disposition. HEAD: Normocephalic and atraumatic. NECK: No neck rigidity was observed. EENT: Examination benign. NEUROLOGICAL EXMINATION: MENTAL STATUS EXMINATION: He was awake and alert. He was oriented to self only. He did not cooperate for further mental status testing. SPEECH: Could not be tested. LANGUAGE: He was able to follow simple commands. Further language testing was impossible. CRANIAL NERVE EXAMINATION II: He did blink to threat. He did not cooperate for confrontation testing. III, IV & : The external ocular movements were full and the pupils 3 mm in diameter equal round, regular, and reactive to sluggishly to light. V & VII: Corneal reflex were the reflexes were brisk bilaterally. VIII: He did not respond to sounds and had no nystagmus. IX & X: The gag reflex was present but subdued. XI: Sternocleidomastoids and trapezii did function. XII: Could not be tested adequately. MOTOR SYSTEM: The tone was normal in all four extremities. Examination of muscle mass revealed no focal wasting. He did have right above- the-knee amputation and left ktdvs-vkd-[id number] amputation. Examination of power was impossible to perform he did however move all four extremities on deep painful stimulation. SENSORY EXAMINATION: He responded appropriately to deep pain in all four extremities. REFLEXES: Trace+ and bilaterally symmetrical at the biceps, triceps, brachioradialis, 0 at the left knee. COORDINATION, STANCE & GAIT: Could not be tested. Impression/Recommendations Diagnostic Impression 1. Mr. Sherman Ralph is a 76-year-old, right-handed, gentleman, who does have a past history of hypertension, diabetes mellitus, coronary artery disease, ischemic cardiomyopathy, heart transplant, peripheral vascular disease with right denan-vsh-abwc amputation and left tyfps-yih-xcly amputation , chronic kidney disease, and a sacral decubitus who was hospitalized on 2016 for severe anemia, worsening renal function, and severe hyperkalemia . He has also been thought to be septic and has been in the intensive care unit for management of all his medical problems. On the morning of 06/29/2016 he was noted to have a seizure, the description of which is unavailable. 2. He has had no further seizures or seizure-like phenomena. 3. On neurological examination, at this time, he is not very cooperative and thus performing a thorough mental status examination is quite impossible. He moves all four extremities equally. His deep tendon reflexes are globally diminished in the upper extremities and lost in the left knee. 4. His latest laboratory data on my initial evaluation revealed that he was anemic with a hemoglobin of 8.9. His arterial blood gas revealed a pH of 7.31 with a pCO2 of 52.3 and a pO2 of 67.6. His chemistry panel revealed a sodium elevated to 153, chloride elevated to 115, BUN elevated to 72, creatinine elevated to 3.0, blood glucose elevated to 189. His CRP was elevated to 21.3 and his proBNP was elevated to 6090. He was also significantly hypoalbuminemic with an albumin of 1.9. 5. The EEG done on 06/30/16 revealed a moderate encephalopathy but no focal slowing or inter-ictal phenomena. 6. The patient's history, neurological examination, and laboratory data are most compatible with a single seizure the description of which is unavailable to us. The etiology for the seizure is unclear but there is a high probability that it was a seizure symptomatic of a toxic metabolic insult. He continues to be seizure free at this time. Recommendations 1. Continue present management. 2. No indication to start antiseizure medicine. 3. When it is safe for the patient to the leave intensive care unit, a CT scan of the brain without contrast should be performed to exclude intracranial pathology as a reason for his new onset seizure. 4. Observe closely. Will Padilla M.D., M.S.P.WILL ANGELA Jul 02, 2016 15:08
--- NOTE | 2016-07-02 16:35 | Infectious Diseases Prog Note ---
Assessment/Plan Problems: (1) Sepsis Assessment & Plan: improving , on daptomycin ,meropenem , and micafungin , repeated blood culture remained negative , and sputum culture grew junaid albicans only which is most likely colonization and not real. will continue current regimen for now pending further culture results. 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 continue local wound care , and off loading. (4) Anemia Assessment & Plan: S/P blood transfusion, monitor H&H, need to rule out GI source. (5) PVD (peripheral vascular disease) Assessment & Plan: S/P B/L AKA. (6) CKD (chronic kidney disease) Assessment & Plan: avoid nephrotoxic meds, monitor UOP, and renal function, renal is following (7) Heart transplant status Assessment & Plan: recommend to communicate with his heart transplant team at [facility] [place] for further recommendation, and possible transfer to [facility] for higher level of care, continue transplant meds , and adjust as per his GFR. 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, on valacyclovir renally dosed for 10 days Subjective Constitutional: Reports: fatigue Respiratory: Reports: dry cough Gastrointestinal/Abdominal: Reports: constipation Skin: Reports: ulcer Allergies: Coded Allergies: ADHESIVE TAPE (Verified Allergy, Unknown, Rash, 05/27/16) PLASTIC TAPE-COPIED FROM UNCODED SECTION PENICILLINS (Verified Allergy, Unknown, 06/20/16) PROCAINE (Verified Allergy, Unknown, Rash, 08/19/14) COPIED FRON UNCODED All Systems: reviewed and negative except above Subjective he was extubated successfully , now awake and coherent, no fever , no diarrhea , sating well on nasal canula Objective Vital Signs Last 24 Hour Vital Signs Date Time Temp Pulse Resp B/P Pulse Ox O2 Delivery O2 Flow Rate FiO2 07/02/16 14:00 86 22 115/54 100 Nasal Cannula 2.0 07/02/16 13:00 89 22 108/50 100 Nasal Cannula 2.0 07/02/16 12:00 90 07/02/16 12:00 97.9 90 21 114/62 100 Nasal Cannula 2.0 07/02/16 11:00 92 21 112/63 100 Nasal Cannula 4.0 07/02/16 10:00 93 21 115/53 100 Nasal Cannula 4.0 07/02/16 09:00 101 20 120/83 100 Nasal Cannula 4.0 07/02/16 08:00 97.1 100 20 136/68 100 Nasal Cannula 4.0 07/02/16 08:00 100 07/02/16 07:05 92 18 Nasal Cannula 2.0 28 07/02/16 07:05 Nasal Cannula 2.0 28 07/02/16 07:05 95 Nasal Cannula 2.0 28 07/02/16 06:55 101 20 154/83 100 Nasal Cannula 4.0 07/02/16 06:00 100 20 156/69 100 Nasal Cannula 4.0 07/02/16 05:00 99 20 151/82 100 Nasal Cannula 4.0 07/02/16 04:00 99 07/02/16 04:00 98.0 99 20 146/82 100 Nasal Cannula 4.0 07/02/16 03:00 100 20 146/84 100 Nasal Cannula 4.0 07/02/16 02:00 93 20 124/98 100 Nasal Cannula 4.0 07/02/16 01:00 88 20 139/61 100 Nasal Cannula 4.0 07/02/16 00:00 87 07/02/16 00:00 97.7 87 20 124/65 100 Nasal Cannula 2.0 07/01/16 23:00 88 20 134/66 100 Nasal Cannula 2.0 07/01/16 22:00 89 25 143/65 100 Nasal Cannula 2.0 07/01/16 21:00 86 28 122/60 97 Nasal Cannula 2.0 07/01/16 20:00 83 07/01/16 20:00 98.0 83 28 120/71 95 Nasal Cannula 2.0 07/01/16 19:31 86 16 Nasal Cannula 3.0 32 07/01/16 19:26 99 Nasal Cannula 3.0 32 07/01/16 19:00 86 25 150/61 95 Nasal Cannula 2.0 07/01/16 18:00 86 25 133/60 95 Nasal Cannula 2.0 07/01/16 17:00 83 34 126/48 97 Nasal Cannula 2.0 07/01/16 16:33 Nasal Cannula 2.0 28 Height (Feet): 5 Height (Inches): 8.00 Weight (Pounds): 193 General Appearance: WD/WN, no acute distress HEENT: normocephalic, atraumatic, anicteric, mucous membranes moist Respiratory/Chest: chest wall non-tender, lungs clear, normal breath sounds, no respiratory distress, no accessory muscle use, decreased breath sounds, crackles/rales Cardiovascular: normal peripheral pulses, normal rate, regular rhythm, no gallop/murmur, no JVD Abdomen: soft, non tender, no organomegaly, no mass, no scars, hypoactive bowel sounds, distended Extremities: no cyanosis Skin: no rash, no lesions, ulcers Laboratory Tests Test 07/02/16 04:00 07/02/16 07:42 White Blood Count 9.7 K/UL (4.8-10.8) Red Blood Count 3.46 M/UL (4.70-6.10) L Hemoglobin 10.1 G/DL (14.2-18.0) L Hematocrit 33.7 % (42.0-52.0) L Mean Corpuscular Volume 98 FL (80-99) Mean Corpuscular Hemoglobin 29.3 PG (27.0-31.0) Mean Corpuscular Hemoglobin Concent 30.0 G/DL (32.0-36.0) L Red Cell Distribution Width 15.2 % (11.6-14.8) H Platelet Count 324 K/UL (150-450) Mean Platelet Volume 6.4 FL (6.5-10.1) L Neutrophils (%) (Auto) 78.7 % (45.0-75.0) H Lymphocytes (%) (Auto) 12.8 % (20.0-45.0) L Monocytes (%) (Auto) 4.5 % (1.0-10.0) Eosinophils (%) (Auto) 3.4 % (0.0-3.0) H Basophils (%) (Auto) 0.6 % (0.0-2.0) Sodium Level 152 mEQ/L (135-145) H Potassium Level 4.8 mEQ/L (3.4-4.9) Chloride Level 111 mEQ/L (98-107) H Carbon Dioxide Level 25 mEQ/L (20-30) Anion Gap 16 (5-15) H Blood Urea Nitrogen 63 mg/dL (7-23) H Creatinine 2.6 mg/dL (0.7-1.2) H Estimat Glomerular Filtration Rate mL/min (>60) Glucose Level 212 mg/dL (74-106) H Calcium Level 9.0 mg/dL (8.6-10.2) Phosphorus Level 3.2 mg/dL (2.5-4.8) Magnesium Level 1.9 mg/dL (1.7-2.5) Total Bilirubin 0.2 mg/dL (0.0-1.2) Aspartate Amino Transf (AST/SGOT) 25 U/L (5-40) Alanine Aminotransferase (ALT/SGPT) 18 U/L (3-41) Alkaline Phosphatase 116 U/L (40-129) Total Protein 5.7 g/dL (6.6-8.7) L Albumin 2.4 g/dL (3.5-5.2) L Globulin 3.3 g/dL Albumin/Globulin Ratio 0.7 (1.0-2.7) L Arterial Blood pH 7.488 (7.350-7.450) Arterial Blood Partial Pressure CO2 31.8 mmHg (35.0-45.0) L Arterial Blood Partial Pressure O2 71.9 mmHg (75.0-100.0) L Arterial Blood HCO3 23.6 mmol/L (22.0-26.0) Arterial Blood Oxygen Saturation 95.3 % (92.0-98.0) Arterial Blood Base Excess 0.7 Adama Test Positive Current Medications Medications (Trade) Dose Ordered Sig/Koffi Route PRN Reason Start Time Stop Time Status Last Admin Dose Admin Acetaminophen (Tylenol) 650 mg Q4H PRN ORAL fever 06/23/16 10:30 07/23/16 10:29 07/01/16 05:36 Acetaminophen/ Hydrocodone Bitart ([place] 5/325) 1 tab Q4H PRN GT Moderate Pain (Pain Scale 4-6) 07/02/16 10:40 07/07/16 10:44 Bisacodyl (Dulcolax) 10 mg DAILYPRN PRN RECTAL Constipation 2nd line 06/30/16 10:45 07/30/16 10:44 06/30/16 14:31 Clopidogrel Bisulfate (Plavix) 75 mg DAILY GT 06/25/16 10:22 07/23/16 08:59 07/02/16 09:09 Collagenase (Santyl) 1 applic DAILY TOPIC 06/23/16 09:00 07/23/16 08:59 07/02/16 09:08 Daptomycin 500 mg/ Sodium Chloride 55 ml @ 110 mls/hr Q48H IV 06/25/16 19:00 07/08/16 18:59 07/01/16 19:09 Dextrose (Dextrose 50%) STAT PRN IV Hypoglycemia 06/23/16 22:30 07/23/16 22:29 Docusate Sodium (Colace) 100 mg TID NG 06/24/16 09:00 07/24/16 08:59 07/02/16 12:27 Epoetin Mars (Procrit (for non ESRD use)) 7,000 units TUE-TUE-TUE SUBQ 06/23/16 21:00 07/23/16 20:59 06/30/16 20:34 Furosemide (Lasix) 40 mg DAILY IV 07/03/16 09:00 08/02/16 08:59 Insulin Aspart (NovoLOG) EVERY 6 HOURS SUBQ 06/23/16 12:00 07/23/16 11:59 07/02/16 12:29 Lactobacillus Acidophilus (Culturelle) 1 tab THREE TIMES A DAY GT 06/25/16 10:23 07/23/16 08:59 07/02/16 12:27 Lorazepam (Ativan 2mg/ml 1ml) 0.5 mg Q4H PRN IV For Anxiety 06/30/16 10:45 07/07/16 10:44 07/02/16 03:51 Meropenem 500 mg/ Sodium Chloride 110 ml @ 220 mls/hr Q12HR IVPB 06/25/16 21:00 07/04/16 20:59 07/02/16 09:08 Micafungin Sodium/ Sodium Chloride (Mycamine/Sodium Chloride) 110 ml @ 110 mls/hr Q24H IVPB 06/26/16 11:00 07/03/16 10:59 07/02/16 12:28 Mineral Oil (Fleet's Mineral Oil Enema) 133 ml DAILYPRN PRN RECTAL Constipation 3rd Line 06/30/16 12:00 07/30/16 11:59 Mycophenolate Mofetil 500 mg 500 mg TWICE A DAY GT 06/25/16 10:24 07/23/16 08:59 07/02/16 09:09 Ondansetron HCl (Zofran) 4 mg Q6H PRN IVP Nausea & Vomiting 06/23/16 10:30 07/23/16 10:29 07/02/16 09:08 Pantoprazole (Protonix) 40 mg DAILY IVP 06/23/16 09:00 07/23/16 08:59 07/02/16 09:08 Polyethylene Glycol (Miralax) 17 gm DAILY PRN GT Constipation 06/25/16 10:23 07/23/16 08:59 06/29/16 22:42 Sodium Hypochlorite (Dakin's Full Strength) 1 applic DAILY TOPIC 06/23/16 09:00 07/23/16 08:59 07/02/16 09:09 Tacrolimus (Prograf) 1 mg Q12HR@0800,2000 ORAL 07/02/16 08:00 08/01/16 07:59 07/02/16 09:09 Valacyclovir HCl (Valtrex) 500 mg EVERY 12 HOURS NG 07/02/16 10:40 07/31/16 19:59 Vitamin A/Vitamin D (A & D Oint) 1 applic EVERY 12 HOURS TOPIC 07/01/16 17:00 07/31/16 16:59 07/02/16 09:09 Zolpidem Tartrate (Ambien) 5 mg HSPRN PRN GT Insomnia 06/25/16 10:24 07/23/16 22:29 Jose Mott M.D. Jul 02, 2016 16:35
--- NOTE | 2016-07-02 19:15 | Cardiology Progress Note ---
Assessment/Plan Assessment/Plan hyperkalemia due ro renal failure and over use of benicar (two time the upper limit of max does recommended) acute on chronic renal filure s/p heart tx dm with endorgan disease pvd obesity anemia htn acute reparatory failure and acidosis hypernatremia presumed pneumonia hypotension ?volume related tachy cardia ? volume related remain extubated Prograf level in am received prbc tx a few lanre go would be tolerant of anemia since post transplant cr stabel echo ef 50-55% d/w rn bnp non diagnostic in light of renal insuf presume pneumonia on abx tele reviewed sinus ngt removed by pt on multip occsion rn will try to see if able to take the prograf and cellcept duration 45 min Subjective ROS Limited/Unobtainable: Yes Subjective extubated l angry pulled out ngt on multipl occsioans Objective Last 24 Hour Vital Signs Date Time Temp Pulse Resp B/P Pulse Ox O2 Delivery O2 Flow Rate FiO2 07/02/16 18:50 94 Nasal Cannula 2.0 28 07/02/16 18:50 Nasal Cannula 2.0 28 07/02/16 18:50 86 18 Nasal Cannula 2.0 28 07/02/16 18:00 86 34 116/102 95 Nasal Cannula 2.0 07/02/16 17:00 85 33 100/58 94 Nasal Cannula 2.0 07/02/16 16:00 85 07/02/16 16:00 97.6 85 26 117/65 95 Nasal Cannula 2.0 07/02/16 15:00 88 23 111/67 95 Nasal Cannula 2.0 07/02/16 14:00 86 22 115/54 100 Nasal Cannula 2.0 07/02/16 13:00 89 22 108/50 100 Nasal Cannula 2.0 07/02/16 12:00 90 07/02/16 12:00 97.9 90 21 114/62 100 Nasal Cannula 2.0 07/02/16 11:00 92 21 112/63 100 Nasal Cannula 4.0 07/02/16 10:00 93 21 115/53 100 Nasal Cannula 4.0 07/02/16 09:00 101 20 120/83 100 Nasal Cannula 4.0 07/02/16 08:00 97.1 100 20 136/68 100 Nasal Cannula 4.0 07/02/16 08:00 100 07/02/16 07:05 92 18 Nasal Cannula 2.0 28 07/02/16 07:05 Nasal Cannula 2.0 28 07/02/16 07:05 95 Nasal Cannula 2.0 28 07/02/16 06:55 101 20 154/83 100 Nasal Cannula 4.0 07/02/16 06:00 100 20 156/69 100 Nasal Cannula 4.0 07/02/16 05:00 99 20 151/82 100 Nasal Cannula 4.0 07/02/16 04:00 99 07/02/16 04:00 98.0 99 20 146/82 100 Nasal Cannula 4.0 07/02/16 03:00 100 20 146/84 100 Nasal Cannula 4.0 07/02/16 02:00 93 20 124/98 100 Nasal Cannula 4.0 07/02/16 01:00 88 20 139/61 100 Nasal Cannula 4.0 07/02/16 00:00 87 07/02/16 00:00 97.7 87 20 124/65 100 Nasal Cannula 2.0 07/01/16 23:00 88 20 134/66 100 Nasal Cannula 2.0 07/01/16 22:00 89 25 143/65 100 Nasal Cannula 2.0 07/01/16 21:00 86 28 122/60 97 Nasal Cannula 2.0 07/01/16 20:00 83 07/01/16 20:00 98.0 83 28 120/71 95 Nasal Cannula 2.0 07/01/16 19:31 86 16 Nasal Cannula 3.0 32 07/01/16 19:26 99 Nasal Cannula 3.0 32 General Appearance: no apparent distress, alert Neck: supple Cardiovascular: normal rate, regular rhythm Respiratory/Chest: rhonchi - left Abdomen: normal bowel sounds, non tender, soft Extremities: no swelling Intake and Output 07/01/16 07/02/16 19:00 07:00 Intake Total 990 ml 895 ml Output Total 1595 ml 2440 ml Balance -605 ml -1545 ml Free Water 200 ml 200 ml IV Total 220 ml 165 ml Tube Feeding 480 ml 480 ml Other 90 ml 50 ml Output Urine Total 1595 ml 2440 ml # Bowel Movements 3 Laboratory Tests Test 07/02/16 04:00 07/02/16 07:42 White Blood Count 9.7 K/UL (4.8-10.8) Red Blood Count 3.46 M/UL (4.70-6.10) L Hemoglobin 10.1 G/DL (14.2-18.0) L Hematocrit 33.7 % (42.0-52.0) L Mean Corpuscular Volume 98 FL (80-99) Mean Corpuscular Hemoglobin 29.3 PG (27.0-31.0) Mean Corpuscular Hemoglobin Concent 30.0 G/DL (32.0-36.0) L Red Cell Distribution Width 15.2 % (11.6-14.8) H Platelet Count 324 K/UL (150-450) Mean Platelet Volume 6.4 FL (6.5-10.1) L Neutrophils (%) (Auto) 78.7 % (45.0-75.0) H Lymphocytes (%) (Auto) 12.8 % (20.0-45.0) L Monocytes (%) (Auto) 4.5 % (1.0-10.0) Eosinophils (%) (Auto) 3.4 % (0.0-3.0) H Basophils (%) (Auto) 0.6 % (0.0-2.0) Sodium Level 152 mEQ/L (135-145) H Potassium Level 4.8 mEQ/L (3.4-4.9) Chloride Level 111 mEQ/L (98-107) H Carbon Dioxide Level 25 mEQ/L (20-30) Anion Gap 16 (5-15) H Blood Urea Nitrogen 63 mg/dL (7-23) H Creatinine 2.6 mg/dL (0.7-1.2) H Estimat Glomerular Filtration Rate mL/min (>60) Glucose Level 212 mg/dL (74-106) H Calcium Level 9.0 mg/dL (8.6-10.2) Phosphorus Level 3.2 mg/dL (2.5-4.8) Magnesium Level 1.9 mg/dL (1.7-2.5) Total Bilirubin 0.2 mg/dL (0.0-1.2) Aspartate Amino Transf (AST/SGOT) 25 U/L (5-40) Alanine Aminotransferase (ALT/SGPT) 18 U/L (3-41) Alkaline Phosphatase 116 U/L (40-129) Total Protein 5.7 g/dL (6.6-8.7) L Albumin 2.4 g/dL (3.5-5.2) L Globulin 3.3 g/dL Albumin/Globulin Ratio 0.7 (1.0-2.7) L Arterial Blood pH 7.488 (7.350-7.450) Arterial Blood Partial Pressure CO2 31.8 mmHg (35.0-45.0) L Arterial Blood Partial Pressure O2 71.9 mmHg (75.0-100.0) L Arterial Blood HCO3 23.6 mmol/L (22.0-26.0) Arterial Blood Oxygen Saturation 95.3 % (92.0-98.0) Arterial Blood Base Excess 0.7 Adama Test Positive HAILEE PATEL Jul 02, 2016 19:15
[2016-07-02] MEDS: Epogen (for non ESRD use) SUBQ SCH (21:19)
[2016-07-03] VITALS (16 sets, daily range): BP systolic 91–144; BP diastolic 45–100
[2016-07-03] MEDS: NovoLOG Insulin Flexpen SUBQ SCH ×4 (00:20→18:59)
[2016-07-03 05:25] LABS: BASOPHILS % (AUTO) 0.7 % (0.0-2.0); EOSINOPHILS % (AUTO) 5.3 % (0.0-3.0); MEAN CORPUSCULAR HEMOGLOBIN 28.8 PG (27.0-31.0); MEAN CORPUSCULAR HGB CONC 29.8 G/DL (32.0-36.0); MEAN CORPUSCULAR VOLUME 97 FL (80-99); MEAN PLATELET VOLUME 5.9 FL (6.5-10.1); MONOCYTES % (AUTO) 6.9 % (1.0-10.0); NEUTROPHILS % (AUTO) 69.1 % (45.0-75.0); PLATELET COUNT 328 K/UL (150-450); RED BLOOD COUNT 3.43 M/UL (4.70-6.10); RED CELL DISTRIBUTION WIDTH 15.2 % (11.6-14.8); WHITE BLOOD COUNT 6.3 K/UL (4.8-10.8)
[2016-07-03 05:55] LABS: ALANINE AMINOTRANSFERASE 16 U/L (3-41); ALBUMIN/GLOBULIN RATIO 0.6 (1.0-2.7); ANION GAP 14 (5-15); ASPARTATE AMINO TRANSFERASE 20 U/L (5-40); CALCIUM 8.7 mg/dL (8.6-10.2); CARBON DIOXIDE 25 mEQ/L (20-30); CHLORIDE 113 mEQ/L (98-107); CREATININE 2.6 mg/dL (0.7-1.2); HEMOLYSIS 4; POTASSIUM 4.8 mEQ/L (3.4-4.9); SODIUM 152 mEQ/L (135-145); TOTAL PROTEIN 5.9 g/dL (6.6-8.7)
[2016-07-03 05:57] LABS: PHOSPHORUS 3.6 mg/dL (2.5-4.8)
[2016-07-03 07:30] LABS: CRP QUANT 22.5 mg/dL (< 0.5)
[2016-07-03 07:31] LABS: URIC ACID 5.6 MG/DL (2.6-7.2)
[2016-07-03] MEDS: Meropenem 500 MG in NS 110 ML IVPB SCH ×2 (09:00→21:41)
[2016-07-03] MEDS: Dakin's 0.5% (Full Strength) 16oz TOPIC SCH (09:00)
[2016-07-03] MEDS: Vitamin A&D Oint 2oz Tube TOPIC SCH ×2 (09:00→21:40)
[2016-07-03] MEDS: Mycophenolate 250mg cap GT SCH ×2 (09:10→18:54)
[2016-07-03] MEDS: Docusate 100mg tablet NG SCH ×3 (09:11→18:55)
[2016-07-03] MEDS: Lactobacillus-GG tablet GT SCH ×3 (09:11→18:55)
[2016-07-03] MEDS: Pantoprazole Inj IVP SCH (09:11)
--- NOTE | 2016-07-03 10:47 | Pulmonolgy Critical Care Note ---
Critical Care - Asmt/Plan Problems: (1) Respiratory failure requiring intubation (2) Acute encephalopathy (3) ATN (acute tubular necrosis) (4) Sepsis (5) Decubitus skin ulcer Assessment & Plan: on hip, left and right tuberosity of pelvis, sacral area and scrotum stage 2 Respiratory: adjust tidal volume, monitor respiratory rate, adjust FIO2, CXR, ABG Cardiac: continue to monitor HR/BP Renal: F/U I&O Infectious Disease: check cultures Gastrointestinal: continue feedings/current rate Endocrine: monitor blood sugar Hematologic: monitor H/H Neurologic: PRN Ativan, PRN Morphine, keep patient comfortable Affect: PRN ativan Prophylaxis: Protonix, Heparin, SCDs Disposition: keep in ICU Time Spent (Minutes): 40 Notes Reviewed: leaf size picker Discussed with: nurses, consultants, insurance case managerconstruction project manager - Objective Last 24 Hour Vital Signs Date Time Temp Pulse Resp B/P Pulse Ox O2 Delivery O2 Flow Rate FiO2 07/03/16 10:00 90 20 91/45 100 Room Air 07/03/16 09:00 89 20 144/79 100 Room Air 07/03/16 08:00 97.2 88 16 132/58 97 Nasal Cannula 2.0 07/03/16 08:00 88 07/03/16 07:36 Nasal Cannula 2.0 28 07/03/16 07:36 97 Nasal Cannula 2.0 28 07/03/16 07:36 90 17 Nasal Cannula 2.0 28 07/03/16 07:00 87 18 117/52 97 Nasal Cannula 2.0 07/03/16 06:00 88 18 134/65 97 Nasal Cannula 2.0 07/03/16 05:00 89 18 119/63 97 Nasal Cannula 2.0 07/03/16 04:00 86 07/03/16 04:00 97.7 86 18 136/81 97 Nasal Cannula 2.0 07/03/16 03:00 84 18 127/70 97 Nasal Cannula 2.0 07/03/16 02:00 86 18 132/65 97 Nasal Cannula 2.0 07/03/16 00:56 84 18 124/70 97 Nasal Cannula 2.0 07/03/16 00:00 84 07/03/16 00:00 97.0 86 18 115/70 97 Nasal Cannula 2.0 07/02/16 23:00 84 18 121/78 97 Nasal Cannula 2.0 07/02/16 22:00 84 27 123/76 94 Nasal Cannula 2.0 07/02/16 21:00 87 22 99/68 94 Nasal Cannula 2.0 07/02/16 20:00 97.2 85 30 123/61 95 Nasal Cannula 2.0 07/02/16 20:00 85 07/02/16 19:00 87 21 129/81 95 Nasal Cannula 2.0 07/02/16 18:50 94 Nasal Cannula 2.0 28 07/02/16 18:50 Nasal Cannula 2.0 28 07/02/16 18:50 86 18 Nasal Cannula 2.0 28 07/02/16 18:00 86 34 116/102 95 Nasal Cannula 2.0 07/02/16 17:00 85 33 100/58 94 Nasal Cannula 2.0 07/02/16 16:00 85 07/02/16 16:00 97.6 85 26 117/65 95 Nasal Cannula 2.0 07/02/16 15:00 88 23 111/67 95 Nasal Cannula 2.0 07/02/16 14:00 86 22 115/54 100 Nasal Cannula 2.0 07/02/16 13:00 89 22 108/50 100 Nasal Cannula 2.0 07/02/16 12:00 90 07/02/16 12:00 97.9 90 21 114/62 100 Nasal Cannula 2.0 07/02/16 11:00 92 21 112/63 100 Nasal Cannula 4.0 Status: somnolent Condition: critical HEENT: atraumatic, normocephalic Lungs: rhonchi Heart: HR/BP stable Abdomen: soft, non-tender, tolerating feeding Extremities: edema Accucheck: 144 Critical Care - Subjective ROS Limited/Unobtainable: Yes Condition: critical EKG Rhythm: Sinus Bradycardia FI02: 28 Vent Support Breath Rate: 8 Vent Support Mode: CPAP Vent Tidal Volume: 600 Sputum Amount: None PEEP: 5.0 PIP: 17 Tube Feeding Amount: 0 I&O: Intake and Output 07/02/16 07/03/16 19:00 07:00 Intake Total 780 ml 110 ml Output Total 1905 ml 670 ml Balance -1125 ml -560 ml Free Water 200 ml IV Total 220 ml 110 ml Tube Feeding 360 ml 0 ml Output Urine Total 1905 ml 670 ml # Bowel Movements 3 1 ET-Tube: 8.0 ET Position: 26 AMADO SCHULER Jul 03, 2016 10:47
--- NOTE | 2016-07-03 11:05 | Diagnostic Imaging Report ---
Indication: Dyspnea Comparison: 07/02/2016 A single view chest radiograph was obtained. Findings: CHF has significantly improved from previous day with some mild central residual. PICC line is stable. Impression: Improved CHF
[2016-07-03] MEDS: Micafungin 100 MG in NS 110 ML IVPB SCH (11:22)
--- NOTE | 2016-07-03 12:08 | General Progress Note ---
Assessment/Plan Status: stable Assessment/Plan status: Acute Renal Failure- Cr stable Acute respiratory failure- septic shock , metabolic acidosis Superimposed on CRI due to DM / HTN PVD s/p amputation- Severe Anemia s/p Heart transplant sacral decub plan: extubated 07/01 Mag supplement as needed transfused slow Hydrate- free water, D5 watch CHF Sxs wound care- monitor renal parameters- optimize cardiac and pulm status- wean as possible. avoid nephrotoxics per ID and cardiology discussed with RN Subjective ROS Limited/Unobtainable: No Constitutional: Reports: malaise, other - extubated- NGT out- Communicative- Allergies: Coded Allergies: ADHESIVE TAPE (Verified Allergy, Unknown, Rash, 05/27/16) PLASTIC TAPE-COPIED FROM UNCODED SECTION PENICILLINS (Verified Allergy, Unknown, 06/20/16) PROCAINE (Verified Allergy, Unknown, Rash, 08/19/14) COPIED FRON UNCODED Objective Last 24 Hour Vital Signs Date Time Temp Pulse Resp B/P Pulse Ox O2 Delivery O2 Flow Rate FiO2 07/03/16 10:00 90 20 91/45 100 Room Air 07/03/16 09:00 89 20 144/79 100 Room Air 07/03/16 08:00 97.2 88 16 132/58 97 Nasal Cannula 2.0 07/03/16 08:00 88 07/03/16 07:36 Nasal Cannula 2.0 28 07/03/16 07:36 97 Nasal Cannula 2.0 28 07/03/16 07:36 90 17 Nasal Cannula 2.0 28 07/03/16 07:00 87 18 117/52 97 Nasal Cannula 2.0 07/03/16 06:00 88 18 134/65 97 Nasal Cannula 2.0 07/03/16 05:00 89 18 119/63 97 Nasal Cannula 2.0 07/03/16 04:00 86 07/03/16 04:00 97.7 86 18 136/81 97 Nasal Cannula 2.0 07/03/16 03:00 84 18 127/70 97 Nasal Cannula 2.0 07/03/16 02:00 86 18 132/65 97 Nasal Cannula 2.0 07/03/16 00:56 84 18 124/70 97 Nasal Cannula 2.0 07/03/16 00:00 84 07/03/16 00:00 97.0 86 18 115/70 97 Nasal Cannula 2.0 07/02/16 23:00 84 18 121/78 97 Nasal Cannula 2.0 07/02/16 22:00 84 27 123/76 94 Nasal Cannula 2.0 07/02/16 21:00 87 22 99/68 94 Nasal Cannula 2.0 07/02/16 20:00 97.2 85 30 123/61 95 Nasal Cannula 2.0 07/02/16 20:00 85 07/02/16 19:00 87 21 129/81 95 Nasal Cannula 2.0 07/02/16 18:50 94 Nasal Cannula 2.0 28 07/02/16 18:50 Nasal Cannula 2.0 28 07/02/16 18:50 86 18 Nasal Cannula 2.0 28 07/02/16 18:00 86 34 116/102 95 Nasal Cannula 2.0 07/02/16 17:00 85 33 100/58 94 Nasal Cannula 2.0 07/02/16 16:00 85 07/02/16 16:00 97.6 85 26 117/65 95 Nasal Cannula 2.0 07/02/16 15:00 88 23 111/67 95 Nasal Cannula 2.0 07/02/16 14:00 86 22 115/54 100 Nasal Cannula 2.0 07/02/16 13:00 89 22 108/50 100 Nasal Cannula 2.0 07/02/16 12:00 90 07/02/16 12:00 97.9 90 21 114/62 100 Nasal Cannula 2.0 Intake and Output 07/02/16 07/03/16 19:00 07:00 Intake Total 780 ml 110 ml Output Total 1905 ml 670 ml Balance -1125 ml -560 ml Free Water 200 ml IV Total 220 ml 110 ml Tube Feeding 360 ml 0 ml Output Urine Total 1905 ml 670 ml # Bowel Movements 3 1 Laboratory Tests 07/03/16 05:00: White Blood Count 6.3, Red Blood Count 3.43L, Hemoglobin 9.9L, Hematocrit 33.2L , Mean Corpuscular Volume 97, Mean Corpuscular Hemoglobin 28.8, Mean Corpuscular Hemoglobin Concent 29.8L, Red Cell Distribution Width 15.2H, Platelet Count 328, Mean Platelet Volume 5.9L, Neutrophils (%) (Auto) 69.1, Lymphocytes (%) (Auto) 18.0L, Monocytes (%) (Auto) 6.9, Eosinophils (%) (Auto) 5.3H, Basophils (%) (Auto) 0.7, Miscellaneous Test 2 [Pending], Sodium Level 152H, Potassium Level 4.8, Chloride Level 113H, Carbon Dioxide Level 25, Anion Gap 14, Blood Urea Nitrogen 60H, Creatinine 2.6H, Estimat Glomerular Filtration Rate , Glucose Level 140H, Uric Acid 5.6, Calcium Level 8.7, Phosphorus Level 3.6, Magnesium Level 2.0, Total Bilirubin 0.3, Aspartate Amino Transf (AST/SGOT ) 20, Alanine Aminotransferase (ALT/SGPT) 16, Alkaline Phosphatase 90, C- Reactive Protein, Quantitative 22.5H, Pro-B-Type Natriuretic Peptide 2907H, Total Protein 5.9L, Albumin 2.3L, Globulin 3.6, Albumin/Globulin Ratio 0.6L Height (Feet): 5 Height (Inches): 8.00 Weight (Pounds): 193 General Appearance: mild distress, other - anxious Respiratory/Chest: decreased breath sounds Objective no other changes in PE BRIJESH CALDERON Jul 03, 2016 12:07
[2016-07-03] MEDS ORDERED: Fleet's Mineral Oil Enema RECTAL PRN (14:30)
[2016-07-03] MEDS ORDERED: LORazepam Inj 2mg/ml 1ml IV PRN (14:45)
[2016-07-03] MEDS ORDERED: Norco 5mg/325mg tab GT PRN (14:45)
--- NOTE | 2016-07-03 15:05 | Infectious Diseases Prog Note ---
Assessment/Plan Problems: (1) Sepsis Assessment & Plan: improving , on daptomycin ,meropenem , and micafungin , repeated blood culture remained negative , and sputum culture grew junaid albicans only which is most likely colonization and not real. 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 continue local wound care , and off loading. (4) Anemia Assessment & Plan: S/P blood transfusion, monitor H&H, need to rule out GI source. (5) PVD (peripheral vascular disease) Assessment & Plan: S/P B/L AKA. (6) CKD (chronic kidney disease) Assessment & Plan: avoid nephrotoxic meds, monitor UOP, and renal function, renal is following (7) Heart transplant status Assessment & Plan: recommend to communicate with his heart transplant team at [facility] for further recommendation, and possible transfer to [facility] for higher level of care, continue transplant meds , and adjust as per his GFR. 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, on valacyclovir renally dosed for 10 days Subjective Constitutional: Reports: fatigue HEENT: Reports: congestion Gastrointestinal/Abdominal: Reports: bloating, constipation Skin: Reports: ulcer Musculoskeletal: Reports: swelling Allergies: Coded Allergies: ADHESIVE TAPE (Verified Allergy, Unknown, Rash, 05/27/16) PLASTIC TAPE-COPIED FROM UNCODED SECTION PENICILLINS (Verified Allergy, Unknown, 06/20/16) PROCAINE (Verified Allergy, Unknown, Rash, 08/19/14) COPIED FRON UNCODED Subjective he was awake and coherent, up in bed, getting his wounds dressing changes , no fever , no diarrhea, sating well on nasal canula Objective Vital Signs Last 24 Hour Vital Signs Date Time Temp Pulse Resp B/P Pulse Ox O2 Delivery O2 Flow Rate FiO2 07/03/16 13:00 91 21 130/69 100 Room Air 07/03/16 12:02 88 07/03/16 12:00 98.1 95 20 120/100 99 Room Air 07/03/16 11:00 90 20 135/79 100 Room Air 07/03/16 10:00 90 20 91/45 100 Room Air 07/03/16 09:00 89 20 144/79 100 Room Air 07/03/16 08:00 97.2 88 16 132/58 97 Nasal Cannula 2.0 07/03/16 08:00 88 07/03/16 07:36 Nasal Cannula 2.0 28 07/03/16 07:36 97 Nasal Cannula 2.0 28 07/03/16 07:36 90 17 Nasal Cannula 2.0 28 07/03/16 07:00 87 18 117/52 97 Nasal Cannula 2.0 07/03/16 06:00 88 18 134/65 97 Nasal Cannula 2.0 07/03/16 05:00 89 18 119/63 97 Nasal Cannula 2.0 07/03/16 04:00 86 07/03/16 04:00 97.7 86 18 136/81 97 Nasal Cannula 2.0 07/03/16 03:00 84 18 127/70 97 Nasal Cannula 2.0 07/03/16 02:00 86 18 132/65 97 Nasal Cannula 2.0 07/03/16 00:56 84 18 124/70 97 Nasal Cannula 2.0 07/03/16 00:00 84 07/03/16 00:00 97.0 86 18 115/70 97 Nasal Cannula 2.0 07/02/16 23:00 84 18 121/78 97 Nasal Cannula 2.0 07/02/16 22:00 84 27 123/76 94 Nasal Cannula 2.0 07/02/16 21:00 87 22 99/68 94 Nasal Cannula 2.0 07/02/16 20:00 97.2 85 30 123/61 95 Nasal Cannula 2.0 07/02/16 20:00 85 07/02/16 19:00 87 21 129/81 95 Nasal Cannula 2.0 07/02/16 18:50 94 Nasal Cannula 2.0 28 07/02/16 18:50 Nasal Cannula 2.0 28 07/02/16 18:50 86 18 Nasal Cannula 2.0 28 07/02/16 18:00 86 34 116/102 95 Nasal Cannula 2.0 07/02/16 17:00 85 33 100/58 94 Nasal Cannula 2.0 07/02/16 16:00 85 07/02/16 16:00 97.6 85 26 117/65 95 Nasal Cannula 2.0 07/02/16 15:00 88 23 111/67 95 Nasal Cannula 2.0 Height (Feet): 5 Height (Inches): 8.00 Weight (Pounds): 193 General Appearance: WD/WN, no acute distress HEENT: normocephalic, atraumatic, anicteric, mucous membranes moist Respiratory/Chest: chest wall non-tender, normal breath sounds, no respiratory distress, no accessory muscle use, decreased breath sounds, crackles/rales Cardiovascular: normal peripheral pulses, normal rate, regular rhythm, no gallop/murmur Abdomen: normal bowel sounds, soft, non tender, no organomegaly, non distended , no mass Extremities: no cyanosis, no clubbing Skin: no rash, ulcers Laboratory Tests Test 07/03/16 05:00 White Blood Count 6.3 K/UL (4.8-10.8) Red Blood Count 3.43 M/UL (4.70-6.10) L Hemoglobin 9.9 G/DL (14.2-18.0) L Hematocrit 33.2 % (42.0-52.0) L Mean Corpuscular Volume 97 FL (80-99) Mean Corpuscular Hemoglobin 28.8 PG (27.0-31.0) Mean Corpuscular Hemoglobin Concent 29.8 G/DL (32.0-36.0) L Red Cell Distribution Width 15.2 % (11.6-14.8) H Platelet Count 328 K/UL (150-450) Mean Platelet Volume 5.9 FL (6.5-10.1) L Neutrophils (%) (Auto) 69.1 % (45.0-75.0) Lymphocytes (%) (Auto) 18.0 % (20.0-45.0) L Monocytes (%) (Auto) 6.9 % (1.0-10.0) Eosinophils (%) (Auto) 5.3 % (0.0-3.0) H Basophils (%) (Auto) 0.7 % (0.0-2.0) Miscellaneous Test 2 Pending Sodium Level 152 mEQ/L (135-145) H Potassium Level 4.8 mEQ/L (3.4-4.9) Chloride Level 113 mEQ/L (98-107) H Carbon Dioxide Level 25 mEQ/L (20-30) Anion Gap 14 (5-15) Blood Urea Nitrogen 60 mg/dL (7-23) H Creatinine 2.6 mg/dL (0.7-1.2) H Estimat Glomerular Filtration Rate mL/min (>60) Glucose Level 140 mg/dL (74-106) H Uric Acid 5.6 MG/DL (2.6-7.2) Calcium Level 8.7 mg/dL (8.6-10.2) Phosphorus Level 3.6 mg/dL (2.5-4.8) Magnesium Level 2.0 mg/dL (1.7-2.5) Total Bilirubin 0.3 mg/dL (0.0-1.2) Aspartate Amino Transf (AST/SGOT) 20 U/L (5-40) Alanine Aminotransferase (ALT/SGPT) 16 U/L (3-41) Alkaline Phosphatase 90 U/L (40-129) C-Reactive Protein, Quantitative 22.5 mg/dL (< 0.5) H Pro-B-Type Natriuretic Peptide 2907 pg/mL (0-450) H Total Protein 5.9 g/dL (6.6-8.7) L Albumin 2.3 g/dL (3.5-5.2) L Globulin 3.6 g/dL Albumin/Globulin Ratio 0.6 (1.0-2.7) L Current Medications Medications (Trade) Dose Ordered Sig/Koffi Route PRN Reason Start Time Stop Time Status Last Admin Dose Admin Acetaminophen (Tylenol) 650 mg Q4H PRN ORAL T>100.5 07/03/16 14:30 08/02/16 14:29 Acetaminophen/ Hydrocodone Bitart (Treadwell 5/325) 1 tab Q4H PRN GT Moderate Pain (Pain Scale 4-6) 07/03/16 14:45 07/10/16 14:44 Bisacodyl (Dulcolax) 10 mg DAILYPRN PRN RECTAL Constipation 2nd line 07/04/16 10:45 08/03/16 10:44 Clopidogrel Bisulfate (Plavix) 75 mg DAILY GT 07/04/16 09:00 08/03/16 08:59 Collagenase (Santyl) 1 applic DAILY TOPIC 07/04/16 09:00 08/03/16 08:59 Daptomycin 500 mg/ Sodium Chloride 55 ml @ 110 mls/hr Q48H IV 07/03/16 19:00 07/10/16 18:59 Dextrose (Dextrose 50%) STAT PRN IV Hypoglycemia 07/03/16 14:30 08/02/16 14:29 Docusate Sodium (Colace) 100 mg TID NG 07/03/16 18:00 08/02/16 17:59 Epoetin Mars (Procrit (for non ESRD use)) 7,000 units TUE-TUE-TUE SUBQ 07/05/16 21:00 08/04/16 20:59 Furosemide (Lasix) 40 mg DAILY IV 07/04/16 09:00 08/03/16 08:59 Insulin Aspart (NovoLOG) EVERY 6 HOURS SUBQ 07/03/16 18:00 08/02/16 17:59 Lactobacillus Acidophilus (Culturelle) 1 tab THREE TIMES A DAY GT 07/03/16 18:00 08/02/16 17:59 Lorazepam (Ativan 2mg/ml 1ml) 0.5 mg Q4H PRN IV For Anxiety 07/03/16 14:45 07/10/16 14:44 Meropenem 500 mg/ Sodium Chloride 110 ml @ 220 mls/hr Q12HR IVPB 07/03/16 21:00 07/08/16 20:59 Micafungin Sodium/ Sodium Chloride (Mycamine/Sodium Chloride) 110 ml @ 110 mls/hr Q24H IVPB 07/04/16 11:00 07/11/16 10:59 Mineral Oil (Fleet's Mineral Oil Enema) 133 ml DAILYPRN PRN RECTAL Constipation 3rd Line 07/03/16 14:30 08/02/16 14:29 Mycophenolate Mofetil (Cellcept) 500 mg TWICE A DAY GT 07/03/16 18:00 08/02/16 17:59 Ondansetron HCl (Zofran) 4 mg Q6H PRN IVP Nausea & Vomiting 07/03/16 14:30 08/02/16 14:29 Pantoprazole (Protonix) 40 mg DAILY IVP 07/04/16 09:00 08/03/16 08:59 Polyethylene Glycol (Miralax) 17 gm DAILYPRN PRN GT Constipation 07/04/16 14:30 08/03/16 14:29 Sodium Hypochlorite (Dakin's Full Strength) 1 applic DAILY TOPIC 07/04/16 09:00 08/03/16 08:59 Tacrolimus (Prograf) 1 mg Q12HR@0800,2000 ORAL 07/03/16 20:00 08/02/16 19:59 Valacyclovir HCl (Valtrex) 500 mg EVERY 12 HOURS NG 07/03/16 21:00 08/02/16 20:59 Vitamin A/Vitamin D (A & D Oint) 1 applic EVERY 12 HOURS TOPIC 07/03/16 21:00 08/02/16 20:59 Zolpidem Tartrate (Ambien) 5 mg HSPRN PRN GT Insomnia 07/03/16 21:00 08/02/16 20:59 Jose Mott M.D. Jul 03, 2016 15:05
--- NOTE | 2016-07-03 15:27 | Neurology Progress Note ---
Interim History Interim History Interim History Mr. Ralph is awake and brighter. He is significantly better. He has had no further seizures or seizure-like phenomena. He has been moved out of the ICU. His behavior is much better. He is still generally weak but stronger. Review of Systems Neuro Review of Systems Benign. Objective Physical Exam Last Vital Signs Date Time Temp Pulse Resp B/P Pulse Ox O2 Delivery O2 Flow Rate FiO2 07/03/16 13:00 91 21 130/69 100 Room Air 07/03/16 12:00 98.1 07/03/16 08:00 2.0 07/03/16 07:36 28 Laboratory Tests Test 07/03/16 05:00 White Blood Count 6.3 K/UL (4.8-10.8) Red Blood Count 3.43 M/UL (4.70-6.10) L Hemoglobin 9.9 G/DL (14.2-18.0) L Hematocrit 33.2 % (42.0-52.0) L Mean Corpuscular Volume 97 FL (80-99) Mean Corpuscular Hemoglobin 28.8 PG (27.0-31.0) Mean Corpuscular Hemoglobin Concent 29.8 G/DL (32.0-36.0) L Red Cell Distribution Width 15.2 % (11.6-14.8) H Platelet Count 328 K/UL (150-450) Mean Platelet Volume 5.9 FL (6.5-10.1) L Neutrophils (%) (Auto) 69.1 % (45.0-75.0) Lymphocytes (%) (Auto) 18.0 % (20.0-45.0) L Monocytes (%) (Auto) 6.9 % (1.0-10.0) Eosinophils (%) (Auto) 5.3 % (0.0-3.0) H Basophils (%) (Auto) 0.7 % (0.0-2.0) Miscellaneous Test 2 Pending Sodium Level 152 mEQ/L (135-145) H Potassium Level 4.8 mEQ/L (3.4-4.9) Chloride Level 113 mEQ/L (98-107) H Carbon Dioxide Level 25 mEQ/L (20-30) Anion Gap 14 (5-15) Blood Urea Nitrogen 60 mg/dL (7-23) H Creatinine 2.6 mg/dL (0.7-1.2) H Estimat Glomerular Filtration Rate mL/min (>60) Glucose Level 140 mg/dL (74-106) H Uric Acid 5.6 MG/DL (2.6-7.2) Calcium Level 8.7 mg/dL (8.6-10.2) Phosphorus Level 3.6 mg/dL (2.5-4.8) Magnesium Level 2.0 mg/dL (1.7-2.5) Total Bilirubin 0.3 mg/dL (0.0-1.2) Aspartate Amino Transf (AST/SGOT) 20 U/L (5-40) Alanine Aminotransferase (ALT/SGPT) 16 U/L (3-41) Alkaline Phosphatase 90 U/L (40-129) C-Reactive Protein, Quantitative 22.5 mg/dL (< 0.5) H Pro-B-Type Natriuretic Peptide 2907 pg/mL (0-450) H Total Protein 5.9 g/dL (6.6-8.7) L Albumin 2.3 g/dL (3.5-5.2) L Globulin 3.6 g/dL Albumin/Globulin Ratio 0.6 (1.0-2.7) L Neurologic Exam Objective PHYSICAL EXAMINATION: GENERAL: He is a well-developed, well-nourished, obese, gentleman, lying in bed. HEAD: Normocephalic and atraumatic. NECK: No neck rigidity was observed. EENT: Examination benign. NEUROLOGICAL EXMINATION: MENTAL STATUS EXMINATION: He was awake and alert. He was oriented to self, hospital and June 2016 only. SPEECH: Normal. LANGUAGE: He was able to comprehend and express himself well. CRANIAL NERVE EXAMINATION II: His visual deleon were intact on confrontation testing. III, IV & : The external ocular movements were full and the pupils 3 mm in diameter equal round, regular, and reactive to sluggishly to light. V & VII: Corneal reflex were the reflexes were brisk bilaterally. VIII: He was able to hear well and had no nystagmus. IX & X: The gag reflex was present. XI: Sternocleidomastoids and trapezii did function. XII: The tongue was in the midline.. MOTOR SYSTEM: The tone was normal in all four extremities. Examination of muscle mass revealed no focal wasting. 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 Examination of power revealed G 5/5 in both upper extremities and G 3/5 in the lower extremities. SENSORY EXAMINATION: He responded appropriately to light touch in all four extremities. REFLEXES: Trace+ and bilaterally symmetrical at the biceps, triceps, brachioradialis, 0 at the left knee. COORDINATION, STANCE & GAIT: Could not be tested. Impression/Recommendations Diagnostic Impression 1. Mr. Sherman Ralph is a 76-year-old, right-handed, gentleman, who does have a past history of hypertension, diabetes mellitus, coronary artery disease, ischemic cardiomyopathy, heart transplant, peripheral vascular disease with right [id number] amputation and left [id number] amputation , chronic kidney disease, and a sacral decubitus who was hospitalized on 2016 for severe anemia, worsening renal function, and severe hyperkalemia . He has also been thought to be septic and has been in the intensive care unit for management of all his medical problems. On the morning of 06/29/2016 he was noted to have a seizure, the description of which is unavailable. 2. He has had no further seizures or seizure-like phenomena. He feels better today. 3. On neurological examination, at this time, he is awake and much more alert. He is better oriented. He moves all four extremities but is weak in his legs. His deep tendon reflexes are globally diminished in the upper extremities and lost in the left knee. 4. His latest laboratory data on my initial evaluation revealed that he was anemic with a hemoglobin of 8.9. His arterial blood gas revealed a pH of 7.31 with a pCO2 of 52.3 and a pO2 of 67.6. His chemistry panel revealed a sodium elevated to 153, chloride elevated to 115, BUN elevated to 72, creatinine elevated to 3.0, blood glucose elevated to 189. His CRP was elevated to 21.3 and his proBNP was elevated to 6090. He was also significantly hypoalbuminemic with an albumin of 1.9. 5. The EEG done on 06/30/16 revealed a moderate encephalopathy but no focal slowing or inter-ictal phenomena. 6. The patient's history, neurological examination, and laboratory data are most compatible with a single seizure the description of which is unavailable to us. The etiology for the seizure is unclear but there is a high probability that it was a seizure symptomatic of a toxic metabolic insult. He continues to be seizure free at this time. 7. His encephalopathy is improving. Recommendations 1. Continue present management. 2. No indication to start antiseizure medicine. 3. Observe closely. 4. Mobilize. Gustavo Padilla M.D., M.S.P.Kim. GUSTAVO PADILLA Jul 03, 2016 15:27
--- NOTE | 2016-07-03 17:01 | Cardiology Progress Note ---
Assessment/Plan Assessment/Plan post cardiac transplant clinically looks better prograf level is pending will adjust it when results are back Subjective Subjective the patient is resting comfortablty transferred from ICU confused, complaining on dizziness Objective Last 24 Hour Vital Signs Date Time Temp Pulse Resp B/P Pulse Ox O2 Delivery O2 Flow Rate FiO2 07/03/16 13:00 91 21 130/69 100 Room Air 07/03/16 12:02 88 07/03/16 12:00 98.1 95 20 120/100 99 Room Air 07/03/16 11:00 90 20 135/79 100 Room Air 07/03/16 10:00 90 20 91/45 100 Room Air 07/03/16 09:00 89 20 144/79 100 Room Air 07/03/16 08:00 97.2 88 16 132/58 97 Nasal Cannula 2.0 07/03/16 08:00 88 07/03/16 07:36 Nasal Cannula 2.0 28 07/03/16 07:36 97 Nasal Cannula 2.0 28 07/03/16 07:36 90 17 Nasal Cannula 2.0 28 07/03/16 07:00 87 18 117/52 97 Nasal Cannula 2.0 07/03/16 06:00 88 18 134/65 97 Nasal Cannula 2.0 07/03/16 05:00 89 18 119/63 97 Nasal Cannula 2.0 07/03/16 04:00 86 07/03/16 04:00 97.7 86 18 136/81 97 Nasal Cannula 2.0 07/03/16 03:00 84 18 127/70 97 Nasal Cannula 2.0 07/03/16 02:00 86 18 132/65 97 Nasal Cannula 2.0 07/03/16 00:56 84 18 124/70 97 Nasal Cannula 2.0 07/03/16 00:00 84 07/03/16 00:00 97.0 86 18 115/70 97 Nasal Cannula 2.0 07/02/16 23:00 84 18 121/78 97 Nasal Cannula 2.0 07/02/16 22:00 84 27 123/76 94 Nasal Cannula 2.0 07/02/16 21:00 87 22 99/68 94 Nasal Cannula 2.0 07/02/16 20:00 97.2 85 30 123/61 95 Nasal Cannula 2.0 07/02/16 20:00 85 07/02/16 19:00 87 21 129/81 95 Nasal Cannula 2.0 07/02/16 18:50 94 Nasal Cannula 2.0 28 07/02/16 18:50 Nasal Cannula 2.0 28 07/02/16 18:50 86 18 Nasal Cannula 2.0 28 07/02/16 18:00 86 34 116/102 95 Nasal Cannula 2.0 07/02/16 17:00 85 33 100/58 94 Nasal Cannula 2.0 General Appearance: no apparent distress, other - mildly confused EENT: normal ENT inspection Neck: JVD Rhythm: NSR Cardiovascular: normal rate Respiratory/Chest: crackles/rales - few Abdomen: soft Extremities: other - both AKA Intake and Output 07/02/16 07/03/16 19:00 07:00 Intake Total 780 ml 110 ml Output Total 1905 ml 670 ml Balance -1125 ml -560 ml Free Water 200 ml IV Total 220 ml 110 ml Tube Feeding 360 ml 0 ml Output Urine Total 1905 ml 670 ml # Bowel Movements 3 1 Laboratory Tests Test 07/03/16 05:00 White Blood Count 6.3 K/UL (4.8-10.8) Red Blood Count 3.43 M/UL (4.70-6.10) L Hemoglobin 9.9 G/DL (14.2-18.0) L Hematocrit 33.2 % (42.0-52.0) L Mean Corpuscular Volume 97 FL (80-99) Mean Corpuscular Hemoglobin 28.8 PG (27.0-31.0) Mean Corpuscular Hemoglobin Concent 29.8 G/DL (32.0-36.0) L Red Cell Distribution Width 15.2 % (11.6-14.8) H Platelet Count 328 K/UL (150-450) Mean Platelet Volume 5.9 FL (6.5-10.1) L Neutrophils (%) (Auto) 69.1 % (45.0-75.0) Lymphocytes (%) (Auto) 18.0 % (20.0-45.0) L Monocytes (%) (Auto) 6.9 % (1.0-10.0) Eosinophils (%) (Auto) 5.3 % (0.0-3.0) H Basophils (%) (Auto) 0.7 % (0.0-2.0) Miscellaneous Test 2 Pending Sodium Level 152 mEQ/L (135-145) H Potassium Level 4.8 mEQ/L (3.4-4.9) Chloride Level 113 mEQ/L (98-107) H Carbon Dioxide Level 25 mEQ/L (20-30) Anion Gap 14 (5-15) Blood Urea Nitrogen 60 mg/dL (7-23) H Creatinine 2.6 mg/dL (0.7-1.2) H Estimat Glomerular Filtration Rate mL/min (>60) Glucose Level 140 mg/dL (74-106) H Uric Acid 5.6 MG/DL (2.6-7.2) Calcium Level 8.7 mg/dL (8.6-10.2) Phosphorus Level 3.6 mg/dL (2.5-4.8) Magnesium Level 2.0 mg/dL (1.7-2.5) Total Bilirubin 0.3 mg/dL (0.0-1.2) Aspartate Amino Transf (AST/SGOT) 20 U/L (5-40) Alanine Aminotransferase (ALT/SGPT) 16 U/L (3-41) Alkaline Phosphatase 90 U/L (40-129) C-Reactive Protein, Quantitative 22.5 mg/dL (< 0.5) H Pro-B-Type Natriuretic Peptide 2907 pg/mL (0-450) H Total Protein 5.9 g/dL (6.6-8.7) L Albumin 2.3 g/dL (3.5-5.2) L Globulin 3.6 g/dL Albumin/Globulin Ratio 0.6 (1.0-2.7) ERIN CRUZ Jul 03, 2016 17:01
[2016-07-03] MEDS: DAPTOmycin 500 MG in NS 55 ML IV SCH (19:01)
[2016-07-03] MEDS ORDERED: Zolpidem 5mg tab GT PRN (21:00)
[2016-07-04] VITALS: BP 140/73
[2016-07-04] MEDS: NovoLOG Insulin Flexpen SUBQ SCH ×4 (00:05→18:34)
[2016-07-04 04:15] VITALS: BP 126/63
[2016-07-04 05:59] LABS: BASOPHILS % (AUTO) 0.8 % (0.0-2.0); LYMPHOCYTES % (AUTO) 15.5 % (20.0-45.0); MEAN CORPUSCULAR HEMOGLOBIN 28.9 PG (27.0-31.0); MEAN CORPUSCULAR VOLUME 96 FL (80-99); MEAN PLATELET VOLUME 5.9 FL (6.5-10.1); MONOCYTES % (AUTO) 8.1 % (1.0-10.0); NEUTROPHILS % (AUTO) 71.6 % (45.0-75.0); PLATELET COUNT 385 K/UL (150-450); RED BLOOD COUNT 3.32 M/UL (4.70-6.10); WHITE BLOOD COUNT 6.7 K/UL (4.8-10.8)
[2016-07-04 06:13] LABS: ALANINE AMINOTRANSFERASE 13 U/L (3-41); ALBUMIN/GLOBULIN RATIO 0.7 (1.0-2.7); ANION GAP 15 (5-15); ASPARTATE AMINO TRANSFERASE 18 U/L (5-40); CALCIUM 8.6 mg/dL (8.6-10.2); CARBON DIOXIDE 24 mEQ/L (20-30); CHLORIDE 110 mEQ/L (98-107); CREATININE 2.6 mg/dL (0.7-1.2); HEMOLYSIS 0; POTASSIUM 4.4 mEQ/L (3.4-4.9); SODIUM 149 mEQ/L (135-145); TOTAL PROTEIN 5.8 g/dL (6.6-8.7)
[2016-07-04 08:00] VITALS: BP 157/73
[2016-07-04] MEDS: Dakin's 0.5% (Full Strength) 16oz TOPIC SCH (09:00)
[2016-07-04] MEDS: Pantoprazole Inj IVP SCH (09:36)
[2016-07-04] MEDS: Mycophenolate 250mg cap GT SCH ×2 (09:37→18:27)
[2016-07-04] MEDS: Lactobacillus-GG tablet GT SCH ×3 (09:38→18:27)
[2016-07-04] MEDS: Meropenem 500 MG in NS 110 ML IVPB SCH ×2 (09:39→20:56)
[2016-07-04] MEDS: Docusate 100mg tablet NG SCH ×3 (09:40→18:27)
[2016-07-04] MEDS: Vitamin A&D Oint 2oz Tube TOPIC SCH ×2 (09:40→21:00)
--- NOTE | 2016-07-04 10:11 | Infectious Diseases Prog Note ---
Assessment/Plan Problems: (1) Sepsis Assessment & Plan: improving , on daptomycin ,meropenem , and micafungin , repeated blood culture remained negative , and sputum culture grew junaid albicans only which is most likely colonization and not real. 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 continue local wound care , and off loading. (4) Anemia Assessment & Plan: S/P blood transfusion, monitor H&H, need to rule out GI source. (5) PVD (peripheral vascular disease) Assessment & Plan: S/P B/L AKA. (6) CKD (chronic kidney disease) Assessment & Plan: avoid nephrotoxic meds, monitor UOP, and renal function, renal is following (7) Heart transplant status Assessment & Plan: recommend to communicate with his heart transplant team at [facility] for further recommendation, and possible transfer to [facility] for higher level of care, continue transplant meds , and adjust as per his GFR. 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, on valacyclovir renally dosed for 10 days Subjective Constitutional: Reports: fatigue Respiratory: Reports: dry cough Gastrointestinal/Abdominal: Reports: bloating, constipation Allergies: Coded Allergies: ADHESIVE TAPE (Verified Allergy, Unknown, Rash, 05/27/16) PLASTIC TAPE-COPIED FROM UNCODED SECTION PENICILLINS (Verified Allergy, Unknown, 06/20/16) PROCAINE (Verified Allergy, Unknown, Rash, 08/19/14) COPIED FRON UNCODED All Systems: reviewed and negative except above Subjective he was awake and coherent, up in bed, getting his wounds dressing changes , no fever , no diarrhea, sating well on nasal canula Objective Vital Signs Last 24 Hour Vital Signs Date Time Temp Pulse Resp B/P Pulse Ox O2 Delivery O2 Flow Rate FiO2 07/04/16 08:00 97.3 91 18 157/73 93 93 07/04/16 04:15 97.8 91 20 126/63 94 Room Air 07/04/16 04:00 93 07/04/16 00:00 98.0 94 20 140/73 94 Room Air 07/04/16 00:00 93 07/03/16 20:09 94 07/03/16 19:57 98 Nasal Cannula 2.0 28 07/03/16 19:57 Nasal Cannula 2.0 28 07/03/16 19:00 98.4 92 18 125/68 Room Air 07/03/16 16:00 97.0 93 18 131/75 95 Room Air 18 07/03/16 16:00 93 07/03/16 13:00 91 21 130/69 100 Room Air 07/03/16 12:02 88 07/03/16 12:00 98.1 95 20 120/100 99 Room Air 07/03/16 11:00 90 20 135/79 100 Room Air Height (Feet): 5 Height (Inches): 8.00 Weight (Pounds): 193 General Appearance: WD/WN, no acute distress HEENT: normocephalic, atraumatic, anicteric Respiratory/Chest: chest wall non-tender, lungs clear, normal breath sounds, no respiratory distress, no accessory muscle use, decreased breath sounds, crackles/rales Cardiovascular: normal peripheral pulses, normal rate, regular rhythm, no gallop/murmur Abdomen: normal bowel sounds, soft, non tender, no organomegaly, non distended , no mass Extremities: no cyanosis Skin: no rash, ulcers Laboratory Tests Test 07/04/16 04:30 White Blood Count 6.7 K/UL (4.8-10.8) Red Blood Count 3.32 M/UL (4.70-6.10) L Hemoglobin 9.6 G/DL (14.2-18.0) L Hematocrit 32.0 % (42.0-52.0) L Mean Corpuscular Volume 96 FL (80-99) Mean Corpuscular Hemoglobin 28.9 PG (27.0-31.0) Mean Corpuscular Hemoglobin Concent 30.0 G/DL (32.0-36.0) L Red Cell Distribution Width 15.0 % (11.6-14.8) H Platelet Count 385 K/UL (150-450) Mean Platelet Volume 5.9 FL (6.5-10.1) L Neutrophils (%) (Auto) 71.6 % (45.0-75.0) Lymphocytes (%) (Auto) 15.5 % (20.0-45.0) L Monocytes (%) (Auto) 8.1 % (1.0-10.0) Eosinophils (%) (Auto) 4.0 % (0.0-3.0) H Basophils (%) (Auto) 0.8 % (0.0-2.0) Sodium Level 149 mEQ/L (135-145) H Potassium Level 4.4 mEQ/L (3.4-4.9) Chloride Level 110 mEQ/L (98-107) H Carbon Dioxide Level 24 mEQ/L (20-30) Anion Gap 15 (5-15) Blood Urea Nitrogen 56 mg/dL (7-23) H Creatinine 2.6 mg/dL (0.7-1.2) H Estimat Glomerular Filtration Rate mL/min (>60) Glucose Level 140 mg/dL (74-106) H Calcium Level 8.6 mg/dL (8.6-10.2) Total Bilirubin 0.3 mg/dL (0.0-1.2) Aspartate Amino Transf (AST/SGOT) 18 U/L (5-40) Alanine Aminotransferase (ALT/SGPT) 13 U/L (3-41) Alkaline Phosphatase 86 U/L (40-129) Total Protein 5.8 g/dL (6.6-8.7) L Albumin 2.5 g/dL (3.5-5.2) L Globulin 3.3 g/dL Albumin/Globulin Ratio 0.7 (1.0-2.7) L Current Medications Medications (Trade) Dose Ordered Sig/Koffi Route PRN Reason Start Time Stop Time Status Last Admin Dose Admin Acetaminophen (Tylenol) 650 mg Q4H PRN ORAL T>100.5 07/03/16 14:30 08/02/16 14:29 Acetaminophen/ Hydrocodone Bitart ([place] 5/325) 1 tab Q4H PRN GT Moderate Pain (Pain Scale 4-6) 07/03/16 14:45 07/10/16 14:44 Bisacodyl (Dulcolax) 10 mg DAILYPRN PRN RECTAL Constipation 2nd line 07/04/16 10:45 08/03/16 10:44 Clopidogrel Bisulfate (Plavix) 75 mg DAILY GT 07/04/16 09:00 08/03/16 08:59 07/04/16 09:37 Collagenase (Santyl) 1 applic DAILY TOPIC 07/04/16 09:00 08/03/16 08:59 Daptomycin 500 mg/ Sodium Chloride 55 ml @ 110 mls/hr Q48H IV 07/03/16 19:00 07/10/16 18:59 07/03/16 19:01 Dextrose (Dextrose 50%) STAT PRN IV Hypoglycemia 07/03/16 14:30 08/02/16 14:29 Docusate Sodium (Colace) 100 mg TID NG 07/03/16 18:00 08/02/16 17:59 07/04/16 09:40 Epoetin Mars (Procrit (for non ESRD use)) 7,000 units TUE-TUE-TUE SUBQ 07/05/16 21:00 08/04/16 20:59 Furosemide (Lasix) 40 mg DAILY IV 07/04/16 09:00 08/03/16 08:59 07/04/16 09:38 Insulin Aspart (NovoLOG) EVERY 6 HOURS SUBQ 07/03/16 18:00 08/02/16 17:59 07/04/16 07:10 Lactobacillus Acidophilus (Culturelle) 1 tab THREE TIMES A DAY GT 07/03/16 18:00 08/02/16 17:59 07/04/16 09:38 Lorazepam (Ativan 2mg/ml 1ml) 0.5 mg Q4H PRN IV For Anxiety 07/03/16 14:45 07/10/16 14:44 07/04/16 09:37 Meropenem 500 mg/ Sodium Chloride 110 ml @ 220 mls/hr Q12HR IVPB 07/03/16 21:00 07/08/16 20:59 07/04/16 09:39 Micafungin Sodium/ Sodium Chloride (Mycamine/Sodium Chloride) 110 ml @ 110 mls/hr Q24H IVPB 07/04/16 11:00 07/11/16 10:59 Mineral Oil (Fleet's Mineral Oil Enema) 133 ml DAILYPRN PRN RECTAL Constipation 3rd Line 07/03/16 14:30 08/02/16 14:29 Mycophenolate Mofetil (Cellcept) 500 mg TWICE A DAY GT 07/03/16 18:00 08/02/16 17:59 07/04/16 09:37 Ondansetron HCl (Zofran) 4 mg Q6H PRN IVP Nausea & Vomiting 07/03/16 14:30 08/02/16 14:29 Pantoprazole (Protonix) 40 mg DAILY IVP 07/04/16 09:00 08/03/16 08:59 07/04/16 09:36 Polyethylene Glycol (Miralax) 17 gm DAILYPRN PRN GT Constipation 07/04/16 14:30 08/03/16 14:29 Sodium Hypochlorite (Dakin's Full Strength) 1 applic DAILY TOPIC 07/04/16 09:00 08/03/16 08:59 Tacrolimus (Prograf) 1 mg Q12HR@0800,2000 ORAL 07/03/16 20:00 08/02/16 19:59 07/04/16 09:37 Valacyclovir HCl (Valtrex) 500 mg EVERY 12 HOURS NG 07/03/16 21:00 08/02/16 20:59 07/04/16 09:37 Vitamin A/Vitamin D (A & D Oint) 1 applic EVERY 12 HOURS TOPIC 07/03/16 21:00 08/02/16 20:59 07/04/16 09:40 Zolpidem Tartrate (Ambien) 5 mg HSPRN PRN GT Insomnia 07/03/16 21:00 08/02/16 20:59 Jose Mott M.D. Jul 04, 2016 10:11
--- NOTE | 2016-07-04 10:22 | General Progress Note ---
Assessment/Plan Status: unchanged Status Narrative Cr unchanged 2.6 Assessment/Plan status: Acute Renal Failure on Chronic renal failure - Cr stable Acute respiratory failure- septic shock , metabolic acidosis resolved Superimposed on CRI due to DM / HTN PVD s/p amputation- Severe Anemia s/p Heart transplant sacral decub plan: extubated 07/01 Mag supplement as needed transfused slow Hydrate- free water, D5 watch CHF Sxs wound care- monitor renal parameters- optimize cardiac and pulm status- wean as possible. avoid nephrotoxics per ID and cardiology discussed with RN Subjective ROS Limited/Unobtainable: No Constitutional: Reports: malaise Allergies: Coded Allergies: ADHESIVE TAPE (Verified Allergy, Unknown, Rash, 05/27/16) PLASTIC TAPE-COPIED FROM UNCODED SECTION PENICILLINS (Verified Allergy, Unknown, 06/20/16) PROCAINE (Verified Allergy, Unknown, Rash, 08/19/14) COPIED FRON UNCODED Objective Last 24 Hour Vital Signs Date Time Temp Pulse Resp B/P Pulse Ox O2 Delivery O2 Flow Rate FiO2 07/04/16 08:00 97.3 91 18 157/73 93 93 07/04/16 04:15 97.8 91 20 126/63 94 Room Air 07/04/16 04:00 93 07/04/16 00:00 98.0 94 20 140/73 94 Room Air 07/04/16 00:00 93 07/03/16 20:09 94 07/03/16 19:57 98 Nasal Cannula 2.0 28 07/03/16 19:57 Nasal Cannula 2.0 28 07/03/16 19:00 98.4 92 18 125/68 Room Air 07/03/16 16:00 97.0 93 18 131/75 95 Room Air 18 07/03/16 16:00 93 07/03/16 13:00 91 21 130/69 100 Room Air 07/03/16 12:02 88 07/03/16 12:00 98.1 95 20 120/100 99 Room Air 07/03/16 11:00 90 20 135/79 100 Room Air Intake and Output 07/03/16 07/04/16 19:00 07:00 Intake Total 220 ml Output Total 1310 ml 500 ml Balance -1090 ml -500 ml IV Total 220 ml Tube Feeding 0 ml Output Urine Total 1310 ml 500 ml Laboratory Tests 2/19/17 04:30: White Blood Count 6.7, Red Blood Count 3.32L, Hemoglobin 9.6L, Hematocrit 32.0L , Mean Corpuscular Volume 96, Mean Corpuscular Hemoglobin 28.9, Mean Corpuscular Hemoglobin Concent 30.0L, Red Cell Distribution Width 15.0H, Platelet Count 385, Mean Platelet Volume 5.9L, Neutrophils (%) (Auto) 71.6, Lymphocytes (%) (Auto) 15.5L, Monocytes (%) (Auto) 8.1, Eosinophils (%) (Auto) 4.0H, Basophils (%) (Auto) 0.8, Sodium Level 149H, Potassium Level 4.4, Chloride Level 110H, Carbon Dioxide Level 24, Anion Gap 15, Blood Urea Nitrogen 56H, Creatinine 2.6H, Estimat Glomerular Filtration Rate , Glucose Level 140H, Calcium Level 8.6, Total Bilirubin 0.3, Aspartate Amino Transf (AST/SGOT) 18, Alanine Aminotransferase (ALT/SGPT) 13, Alkaline Phosphatase 86, Total Protein 5.8L, Albumin 2.5L, Globulin 3.3, Albumin/Globulin Ratio 0.7L Height (Feet): 5 Height (Inches): 8.00 Weight (Pounds): 193 General Appearance: no apparent distress Cardiovascular: tachycardia - rate 91 Respiratory/Chest: decreased breath sounds Abdomen: soft Objective no other changes in PE BRIJESH CALDERON Jul 04, 2016 10:22
--- NOTE | 2016-07-04 10:24 | Diagnostic Imaging Report ---
Clinical history: Cough. Technique: Portable AP chest radiograph was obtained. Comparison: 07/03/16. Findings: Increasing left basilar opacity partially obscuring the left hemidiaphragm may represent worsening atelectasis or pneumonia. There is otherwise no significant interval change in the interval, allowing for differences in technique and positioning. Impression: 1. Stable right upper extremity PICC. 2. Cardiomegaly with suspected mild interstitial edema and trace effusions, stable. Post cardiothoracic surgical changes noted. 3. Increasing left basilar opacity suspicious for worsening atelectasis or pneumonia.
[2016-07-04 12:00] VITALS: BP 160/72
[2016-07-04 12:09] LABS: ABG BASE EXCESS -4.2; ABG PCO2 33.2 mmHg (35.0-45.0)
[2016-07-04 12:10] LABS: ABG ALLEN TEST POSITIVE
[2016-07-04] MEDS: Micafungin 100 MG in NS 110 ML IVPB SCH (12:53)
[2016-07-04] MEDS ORDERED: Miralax 17gm pkt GT PRN (14:30)
--- NOTE | 2016-07-04 14:41 | Neurology Progress Note ---
Interim History Interim History Interim History Mr. Ralph is awake and alert. He however is confused and disoriented. He has had no further seizures or seizure-like phenomena. His behavior is stable. He is still generally weak. He denies any new neurologic symptoms. Review of Systems Neuro Review of Systems Benign. Objective Physical Exam Last Vital Signs Date Time Temp Pulse Resp B/P Pulse Ox O2 Delivery O2 Flow Rate FiO2 07/04/16 12:00 97.0 94 18 160/72 95 Room Air 99 07/04/16 07:10 21 07/03/16 19:57 2.0 Laboratory Tests Test 07/04/16 04:30 07/04/16 12:00 White Blood Count 6.7 K/UL (4.8-10.8) Red Blood Count 3.32 M/UL (4.70-6.10) L Hemoglobin 9.6 G/DL (14.2-18.0) L Hematocrit 32.0 % (42.0-52.0) L Mean Corpuscular Volume 96 FL (80-99) Mean Corpuscular Hemoglobin 28.9 PG (27.0-31.0) Mean Corpuscular Hemoglobin Concent 30.0 G/DL (32.0-36.0) L Red Cell Distribution Width 15.0 % (11.6-14.8) H Platelet Count 385 K/UL (150-450) Mean Platelet Volume 5.9 FL (6.5-10.1) L Neutrophils (%) (Auto) 71.6 % (45.0-75.0) Lymphocytes (%) (Auto) 15.5 % (20.0-45.0) L Monocytes (%) (Auto) 8.1 % (1.0-10.0) Eosinophils (%) (Auto) 4.0 % (0.0-3.0) H Basophils (%) (Auto) 0.8 % (0.0-2.0) Sodium Level 149 mEQ/L (135-145) H Potassium Level 4.4 mEQ/L (3.4-4.9) Chloride Level 110 mEQ/L (98-107) H Carbon Dioxide Level 24 mEQ/L (20-30) Anion Gap 15 (5-15) Blood Urea Nitrogen 56 mg/dL (7-23) H Creatinine 2.6 mg/dL (0.7-1.2) H Estimat Glomerular Filtration Rate mL/min (>60) Glucose Level 140 mg/dL (74-106) H Calcium Level 8.6 mg/dL (8.6-10.2) Total Bilirubin 0.3 mg/dL (0.0-1.2) Aspartate Amino Transf (AST/SGOT) 18 U/L (5-40) Alanine Aminotransferase (ALT/SGPT) 13 U/L (3-41) Alkaline Phosphatase 86 U/L (40-129) Total Protein 5.8 g/dL (6.6-8.7) L Albumin 2.5 g/dL (3.5-5.2) L Globulin 3.3 g/dL Albumin/Globulin Ratio 0.7 (1.0-2.7) L Arterial Blood pH 7.396 (7.350-7.450) Arterial Blood Partial Pressure CO2 33.2 mmHg (35.0-45.0) L Arterial Blood Partial Pressure O2 36.3 mmHg (75.0-100.0) Arterial Blood HCO3 19.9 mmol/L (22.0-26.0) L Arterial Blood Oxygen Saturation 64.5 % (92.0-98.0) L Arterial Blood Base Excess -4.2 Adama Test Positive Neurologic Exam Objective PHYSICAL EXAMINATION: GENERAL: He is a well-developed, well-nourished, obese, gentleman, lying in bed. HEAD: Normocephalic and atraumatic. NECK: No neck rigidity was observed. EENT: Examination benign. NEUROLOGICAL EXMINATION: MENTAL STATUS EXMINATION: He was awake and alert. He was oriented to self only. He was unable to cooperate for further mental status testing. SPEECH: Normal. LANGUAGE: He had problems with comprehension and expression of language in [place]ian as per his son. CRANIAL NERVE EXAMINATION II: His visual deleon were intact on confrontation testing. III, IV & : The external ocular movements were full and the pupils 3 mm in diameter equal round, regular, and reactive to sluggishly to light. V & VII: Corneal reflexes were brisk bilaterally. VIII: He was able to hear well and had no nystagmus. IX & X: The gag reflex was present. XI: Sternocleidomastoids and trapezii did function. XII: The tongue was in the midline.. MOTOR SYSTEM: The tone was normal in all four extremities. Examination of muscle mass revealed no focal wasting. He did have right above- the-knee amputation and left [id number] amputation. Examination of power revealed G 5/5 in both upper extremities and G 0/5 in the lower extremities. SENSORY EXAMINATION: He responded appropriately to light touch in all four extremities. REFLEXES: Trace+ and bilaterally symmetrical at the biceps, triceps, brachioradialis, 0 at the left knee. COORDINATION, STANCE & GAIT: Could not be tested. Impression/Recommendations Diagnostic Impression 1. Mr. Sherman Ralph is a 76-year-old, right-handed, gentleman, who does have a past history of hypertension, diabetes mellitus, coronary artery disease, ischemic cardiomyopathy, heart transplant, peripheral vascular disease with right [id number] amputation and left [id number] amputation , chronic kidney disease, and a sacral decubitus who was hospitalized on 2016 for severe anemia, worsening renal function, and severe hyperkalemia . It was felt that he was septic and had been in the intensive care unit for management of all his medical problems. On the morning of 06/29/2016 he was noted to have a seizure, the description of which is unavailable. 2. He has had no further seizures or seizure-like phenomena. He feels better today. He however is more confused and agitated. 3. On neurological examination, at this time, he is awake and much more alert. He is better oriented. He moves all four extremities but is weak in his legs. His deep tendon reflexes are globally diminished in the upper extremities and lost in the left knee. 4. His latest laboratory data on my initial evaluation revealed that he was anemic with a hemoglobin of 8.9. His arterial blood gas revealed a pH of 7.31 with a pCO2 of 52.3 and a pO2 of 67.6. His chemistry panel revealed a sodium elevated to 153, chloride elevated to 115, BUN elevated to 72, creatinine elevated to 3.0, blood glucose elevated to 189. His CRP was elevated to 21.3 and his proBNP was elevated to 6090. He was also significantly hypoalbuminemic with an albumin of 1.9. 5. The EEG done on 06/30/16 revealed a moderate encephalopathy but no focal slowing or inter-ictal phenomena. 6. The patient's history, neurological examination, and laboratory data are most compatible with a single seizure the description of which is unavailable to us. The etiology for the seizure is unclear but there is a high probability that it was a seizure symptomatic of a toxic metabolic insult. He continues to be seizure free at this time. 7. His encephalopathy is still waxing and waning, and is worse today. Recommendations 1. Continue present management. 2. Correct toxic/metabolic imbalances. 3. No indication to start antiseizure medicine. 4. Observe closely. 5. Mobilize. 6. Keep room bright during the day and minimize overstimulation. Will Padilla M.D., M.S.[facility]. WILL PADILLA Jul 04, 2016 14:41
[2016-07-04 15:51] LABS: ABG ALLEN TEST POSITIVE; ABG BASE EXCESS 0.6; ABG PCO2 30.2 mmHg (35.0-45.0)
[2016-07-04 16:00] VITALS: BP 102/60
--- NOTE | 2016-07-04 16:10 | Cardiology Progress Note ---
Assessment/Plan Assessment/Plan post cardiac transplant clinically looks better prograf level is pending will adjust it when results are back discussed with nursing they will call me back Subjective Subjective the patient is resting comfortablty goes in and out of confusion, complaining on dizziness Objective Last 24 Hour Vital Signs Date Time Temp Pulse Resp B/P Pulse Ox O2 Delivery O2 Flow Rate FiO2 07/04/16 12:00 97.0 94 18 160/72 95 Room Air 99 07/04/16 08:00 97.3 91 18 157/73 93 93 07/04/16 07:10 94 Room Air 21 07/04/16 07:10 Room Air 21 07/04/16 04:15 97.8 91 20 126/63 94 Room Air 07/04/16 04:00 93 07/04/16 00:00 98.0 94 20 140/73 94 Room Air 07/04/16 00:00 93 07/03/16 20:09 94 07/03/16 19:57 98 Nasal Cannula 2.0 28 07/03/16 19:57 Nasal Cannula 2.0 28 07/03/16 19:00 98.4 92 18 125/68 Room Air General Appearance: no apparent distress EENT: PERRL/EOMI Neck: supple, JVD Rhythm: NSR Cardiovascular: normal rate Respiratory/Chest: crackles/rales Abdomen: soft Extremities: other - amputated Intake and Output 07/03/16 07/04/16 19:00 07:00 Intake Total 220 ml Output Total 1310 ml 500 ml Balance -1090 ml -500 ml IV Total 220 ml Tube Feeding 0 ml Output Urine Total 1310 ml 500 ml Laboratory Tests Test 07/04/16 04:30 07/04/16 12:00 07/04/16 15:35 White Blood Count 6.7 K/UL (4.8-10.8) Red Blood Count 3.32 M/UL (4.70-6.10) L Hemoglobin 9.6 G/DL (14.2-18.0) L Hematocrit 32.0 % (42.0-52.0) L Mean Corpuscular Volume 96 FL (80-99) Mean Corpuscular Hemoglobin 28.9 PG (27.0-31.0) Mean Corpuscular Hemoglobin Concent 30.0 G/DL (32.0-36.0) L Red Cell Distribution Width 15.0 % (11.6-14.8) H Platelet Count 385 K/UL (150-450) Mean Platelet Volume 5.9 FL (6.5-10.1) L Neutrophils (%) (Auto) 71.6 % (45.0-75.0) Lymphocytes (%) (Auto) 15.5 % (20.0-45.0) L Monocytes (%) (Auto) 8.1 % (1.0-10.0) Eosinophils (%) (Auto) 4.0 % (0.0-3.0) H Basophils (%) (Auto) 0.8 % (0.0-2.0) Sodium Level 149 mEQ/L (135-145) H Potassium Level 4.4 mEQ/L (3.4-4.9) Chloride Level 110 mEQ/L (98-107) H Carbon Dioxide Level 24 mEQ/L (20-30) Anion Gap 15 (5-15) Blood Urea Nitrogen 56 mg/dL (7-23) H Creatinine 2.6 mg/dL (0.7-1.2) H Estimat Glomerular Filtration Rate mL/min (>60) Glucose Level 140 mg/dL (74-106) H Calcium Level 8.6 mg/dL (8.6-10.2) Total Bilirubin 0.3 mg/dL (0.0-1.2) Aspartate Amino Transf (AST/SGOT) 18 U/L (5-40) Alanine Aminotransferase (ALT/SGPT) 13 U/L (3-41) Alkaline Phosphatase 86 U/L (40-129) Total Protein 5.8 g/dL (6.6-8.7) L Albumin 2.5 g/dL (3.5-5.2) L Globulin 3.3 g/dL Albumin/Globulin Ratio 0.7 (1.0-2.7) L Arterial Blood pH 7.396 (7.350-7.450) 7.502 (7.350-7.450) Arterial Blood Partial Pressure CO2 33.2 mmHg (35.0-45.0) L 30.2 mmHg (35.0-45.0) L Arterial Blood Partial Pressure O2 36.3 mmHg (75.0-100.0) 55.1 mmHg (75.0-100.0) L Arterial Blood HCO3 19.9 mmol/L (22.0-26.0) L 23.1 mmol/L (22.0-26.0) Arterial Blood Oxygen Saturation 64.5 % (92.0-98.0) L 89.0 % (92.0-98.0) L Arterial Blood Base Excess -4.2 0.6 Adama Test Positive Positive ERIN BERRY Jul 04, 2016 16:10
--- NOTE | 2016-07-04 16:21 | Pulmonology Progress Note ---
Assessment/Plan Assessment/Plan ASSESSMENT acute respiratory failure requiring intubation s/p self extubation hypoxemia acute toxic encephalopathy episode of seizure like activity ATN (acute tubular necrosis) on CRI Sepsis Decubitus skin ulcer hyperkalemia acute anemia , s/p blood transfusion osteomyelitis DM CAD, s/p heart transplant PVD bilateral amputee PLAN OF CARE tele ABG with evidence of hypoxemia supplemental O2 to keep sat above 92% ABG in am CXR 07/04 -Increasing left basilar opacity suspicious for worsening atelectasis or pneumonia. fup with CXR in am neuro follows no further seizure like activity but remains confused and disoriented nephro follows creat down to 2.6 avoid nephroptotic, closely monitor renal parameters and lytes renal US no hydro, bilateral kidney normal echogenicity cardio follows, Prograf per cardio anemia workup with low iron s/p Venofer x 3 doses, HH at baseline, curently stable check stool OB x2 , CEA with mild elevation ID follows abx per ID blood cx pending , urine cx negative, UA + pyuria, + leukocyte esterase, but few bacteria , CXR no acute disease, source of sepsis likely 2 to osteo wound care plastic surgery follows pain management bowel regimen BS management with SS of insulin continue Plavix DVT prophylaxis case discussed and evaluated by supervising physician Subjective Allergies: Coded Allergies: ADHESIVE TAPE (Verified Allergy, Unknown, Rash, 05/27/16) PLASTIC TAPE-COPIED FROM UNCODED SECTION PENICILLINS (Verified Allergy, Unknown, 06/20/16) PROCAINE (Verified Allergy, Unknown, Rash, 08/19/14) COPIED FRON UNCODED Subjective self extubated himself transferred to tele remains confused, Objective Last 24 Hour Vital Signs Date Time Temp Pulse Resp B/P Pulse Ox O2 Delivery O2 Flow Rate FiO2 07/04/16 12:00 97.0 94 18 160/72 95 Room Air 99 07/04/16 08:00 97.3 91 18 157/73 93 93 07/04/16 07:10 94 Room Air 21 07/04/16 07:10 Room Air 21 07/04/16 04:15 97.8 91 20 126/63 94 Room Air 07/04/16 04:00 93 07/04/16 00:00 98.0 94 20 140/73 94 Room Air 07/04/16 00:00 93 07/03/16 20:09 94 07/03/16 19:57 98 Nasal Cannula 2.0 28 07/03/16 19:57 Nasal Cannula 2.0 28 07/03/16 19:00 98.4 92 18 125/68 Room Air Intake and Output 07/03/16 07/04/16 19:00 07:00 Intake Total 220 ml Output Total 1310 ml 500 ml Balance -1090 ml -500 ml IV Total 220 ml Tube Feeding 0 ml Output Urine Total 1310 ml 500 ml Objective General Appearance: no apparent distress, awake and alert but confused, A/A/O x 1 only HEENT: normocephalic, atraumatic, anicteric, mucous membranes moist Neck: non-tender, supple Respiratory/Chest: chest wall non-tender, lungs clear, no respiratory distress , no accessory muscle use Cardiovascular/Chest: normal rate, SR on tele, regular rhythm, PICC intact Abdomen: normal bowel sounds, non tender, soft, obese Extremities: 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 Skin Exam: sacral decub POA Neurologic: abnormal gait, bedridden, A/A/O x 1, Musculoskeletal: bilateral amputee Laboratory Tests 07/04/16 04:30: White Blood Count 6.7, Red Blood Count 3.32L, Hemoglobin 9.6L, Hematocrit 32.0L , Mean Corpuscular Volume 96, Mean Corpuscular Hemoglobin 28.9, Mean Corpuscular Hemoglobin Concent 30.0L, Red Cell Distribution Width 15.0H, Platelet Count 385, Mean Platelet Volume 5.9L, Neutrophils (%) (Auto) 71.6, Lymphocytes (%) (Auto) 15.5L, Monocytes (%) (Auto) 8.1, Eosinophils (%) (Auto) 4.0H, Basophils (%) (Auto) 0.8, Sodium Level 149H, Potassium Level 4.4, Chloride Level 110H, Carbon Dioxide Level 24, Anion Gap 15, Blood Urea Nitrogen 56H, Creatinine 2.6H, Estimat Glomerular Filtration Rate , Glucose Level 140H, Calcium Level 8.6, Total Bilirubin 0.3, Aspartate Amino Transf (AST/SGOT) 18, Alanine Aminotransferase (ALT/SGPT) 13, Alkaline Phosphatase 86, Total Protein 5.8L, Albumin 2.5L, Globulin 3.3, Albumin/Globulin Ratio 0.7L 07/04/16 12:00: Arterial Blood pH 7.396, Arterial Blood Partial Pressure CO2 33.2L, Arterial Blood Partial Pressure O2 36.3*L, Arterial Blood HCO3 19.9L, Arterial Blood Oxygen Saturation 64.5L, Arterial Blood Base Excess -4.2, Adama Test Positive 07/04/16 15:35: Arterial Blood pH 7.502H, Arterial Blood Partial Pressure CO2 30.2L, Arterial Blood Partial Pressure O2 55.1L, Arterial Blood HCO3 23.1, Arterial Blood Oxygen Saturation 89.0L, Arterial Blood Base Excess 0.6, Adama Test Positive Current Medications Medications (Trade) Dose Ordered Sig/Koffi Route PRN Reason Start Time Stop Time Status Last Admin Dose Admin Acetaminophen (Tylenol) 650 mg Q4H PRN ORAL T>100.5 07/03/16 14:30 08/02/16 14:29 Acetaminophen/ Hydrocodone Bitart ([place] 5/325) 1 tab Q4H PRN GT Moderate Pain (Pain Scale 4-6) 07/03/16 14:45 07/10/16 14:44 Bisacodyl (Dulcolax) 10 mg DAILYPRN PRN RECTAL Constipation 2nd line 07/04/16 10:45 08/03/16 10:44 Clopidogrel Bisulfate (Plavix) 75 mg DAILY GT 07/04/16 09:00 08/03/16 08:59 07/04/16 09:37 Collagenase (Santyl) 1 applic DAILY TOPIC 07/04/16 09:00 08/03/16 08:59 Daptomycin 500 mg/ Sodium Chloride 55 ml @ 110 mls/hr Q48H IV 07/03/16 19:00 07/10/16 18:59 07/03/16 19:01 Dextrose (Dextrose 50%) STAT PRN IV Hypoglycemia 07/03/16 14:30 08/02/16 14:29 Docusate Sodium (Colace) 100 mg TID NG 07/03/16 18:00 08/02/16 17:59 07/04/16 14:32 Epoetin Mars (Procrit (for non ESRD use)) 7,000 units MON-WED-FRI SUBQ 07/05/16 21:00 08/04/16 20:59 Furosemide (Lasix) 40 mg DAILY IV 07/04/16 09:00 08/03/16 08:59 07/04/16 09:38 Insulin Aspart (NovoLOG) EVERY 6 HOURS SUBQ 07/03/16 18:00 08/02/16 17:59 07/04/16 12:43 Lactobacillus Acidophilus (Culturelle) 1 tab THREE TIMES A DAY GT 07/03/16 18:00 08/02/16 17:59 07/04/16 14:32 Lorazepam (Ativan 2mg/ml 1ml) 0.5 mg Q4H PRN IV For Anxiety 07/03/16 14:45 07/10/16 14:44 07/04/16 09:37 Meropenem 500 mg/ Sodium Chloride 110 ml @ 220 mls/hr Q12HR IVPB 07/03/16 21:00 07/08/16 20:59 07/04/16 09:39 Micafungin Sodium/ Sodium Chloride (Mycamine/Sodium Chloride) 110 ml @ 110 mls/hr Q24H IVPB 07/04/16 11:00 07/11/16 10:59 07/04/16 12:53 Mineral Oil (Fleet's Mineral Oil Enema) 133 ml DAILYPRN PRN RECTAL Constipation 3rd Line 07/03/16 14:30 08/02/16 14:29 Mycophenolate Mofetil (Cellcept) 500 mg TWICE A DAY GT 07/03/16 18:00 08/02/16 17:59 07/04/16 09:37 Ondansetron HCl (Zofran) 4 mg Q6H PRN IVP Nausea & Vomiting 07/03/16 14:30 08/02/16 14:29 Pantoprazole (Protonix) 40 mg DAILY IVP 07/04/16 09:00 08/03/16 08:59 07/04/16 09:36 Polyethylene Glycol (Miralax) 17 gm DAILYPRN PRN GT Constipation 07/04/16 14:30 08/03/16 14:29 Sodium Hypochlorite (Dakin's Full Strength) 1 applic DAILY TOPIC 07/04/16 09:00 08/03/16 08:59 Tacrolimus (Prograf) 1 mg Q12HR@0800,2000 ORAL 07/03/16 20:00 08/02/16 19:59 07/04/16 09:37 Valacyclovir HCl (Valtrex) 500 mg EVERY 12 HOURS NG 07/03/16 21:00 08/02/16 20:59 07/04/16 09:37 Vitamin A/Vitamin D (A & D Oint) 1 applic EVERY 12 HOURS TOPIC 07/03/16 21:00 08/02/16 20:59 07/04/16 09:40 Zolpidem Tartrate (Ambien) 5 mg HSPRN PRN GT Insomnia 07/03/16 21:00 08/02/16 20:59 [place] ([facility])Alyssa NP Jul 04, 2016 16:21
[2016-07-04] MEDS ORDERED: DuoNeb 0.5-3(2.5)mg/3ml neb HHN PRN (16:30)
[2016-07-04 20:00] VITALS: BP 129/66
[2016-07-04 21:09] LABS: PARVOVIRUS B19 QL DNA PCR Negative (Negative)
[2016-07-05] VITALS: BP 143/53
[2016-07-05] MEDS: NovoLOG Insulin Flexpen SUBQ SCH ×4 (00:28→18:38)
[2016-07-05 04:00] VITALS: BP 150/60
[2016-07-05 06:57] LABS: BASOPHILS % (AUTO) 0.8 % (0.0-2.0); EOSINOPHILS % (AUTO) 2.2 % (0.0-3.0); MEAN CORPUSCULAR HEMOGLOBIN 28.7 PG (27.0-31.0); MEAN CORPUSCULAR HGB CONC 29.9 G/DL (32.0-36.0); MEAN CORPUSCULAR VOLUME 96 FL (80-99); MEAN PLATELET VOLUME 5.7 FL (6.5-10.1); MONOCYTES % (AUTO) 8.6 % (1.0-10.0); NEUTROPHILS % (AUTO) 74.4 % (45.0-75.0); PLATELET COUNT 401 K/UL (150-450); RED BLOOD COUNT 3.34 M/UL (4.70-6.10); RED CELL DISTRIBUTION WIDTH 15.3 % (11.6-14.8); WHITE BLOOD COUNT 8.1 K/UL (4.8-10.8)
[2016-07-05 07:02] LABS: ANION GAP 16 (5-15); CALCIUM 8.3 mg/dL (8.6-10.2); CARBON DIOXIDE 23 mEQ/L (20-30); CHLORIDE 109 mEQ/L (98-107); CREATININE 2.6 mg/dL (0.7-1.2); HEMOLYSIS 2; POTASSIUM 4.8 mEQ/L (3.4-4.9); SODIUM 148 mEQ/L (135-145)
[2016-07-05 08:21] VITALS: BP 98/61
--- NOTE | 2016-07-05 09:05 | General Progress Note ---
Assessment/Plan Status: stable Assessment/Plan Overall he is more stable and his wounds are not worsening. Sharp bedside excisional debridement of the sacral and right ischial wounds performed with scalpel and forceps down to bone. Recommend continuing the dressing orders as prescribed, IV antibiotics, and nutritional support. Subjective Date patient seen: Jul 05, 2016 Time patient seen: 09:01 ROS Limited/Unobtainable: Yes Allergies: Coded Allergies: ADHESIVE TAPE (Verified Allergy, Unknown, Rash, 05/27/16) PLASTIC TAPE-COPIED FROM UNCODED SECTION PENICILLINS (Verified Allergy, Unknown, 06/20/16) PROCAINE (Verified Allergy, Unknown, Rash, 08/19/14) COPIED FRON UNCODED Subjective Follow up evaluation on patient with multiple pressure ulcers of the trunk. Since he was last seen by me, patient was transferred out of IVU and feeding tube removed. His condition has continued to stabilize. He is currently afebrile with normal WBC. He is awake and alert. Objective Last 24 Hour Vital Signs Date Time Temp Pulse Resp B/P Pulse Ox O2 Delivery O2 Flow Rate FiO2 07/05/16 08:21 97.9 93 22 98/61 96 Nasal Cannula 4.0 07/05/16 04:00 95 07/05/16 04:00 98.6 91 20 150/60 97 Room Air 07/05/16 00:00 99.9 99 20 143/53 96 Nasal Cannula 2.0 07/05/16 00:00 100 07/04/16 20:17 Nasal Cannula 2.0 28 07/04/16 20:17 97 Nasal Cannula 2.0 21 07/04/16 20:00 97.9 101 28 129/66 95 Nasal Cannula 3.0 07/04/16 20:00 100 07/04/16 16:00 98 07/04/16 16:00 98.6 85 18 102/60 94 Room Air 07/04/16 12:00 97.0 94 18 160/72 95 Room Air 99 Intake and Output 07/04/16 07/05/16 19:00 07:00 Intake Total 220 ml Output Total 2320 ml Balance 220 ml -2320 ml IV Total 220 ml Output Urine Total 2320 ml Laboratory Tests 07/04/16 12:00: Arterial Blood pH 7.396, Arterial Blood Partial Pressure CO2 33.2L, Arterial Blood Partial Pressure O2 36.3*L, Arterial Blood HCO3 19.9L, Arterial Blood Oxygen Saturation 64.5L, Arterial Blood Base Excess -4.2, Adama Test Positive 07/04/16 15:35: Arterial Blood pH 7.502H, Arterial Blood Partial Pressure CO2 30.2L, Arterial Blood Partial Pressure O2 55.1L, Arterial Blood HCO3 23.1, Arterial Blood Oxygen Saturation 89.0L, Arterial Blood Base Excess 0.6, Adama Test Positive 07/05/16 05:45: White Blood Count 8.1, Red Blood Count 3.34L, Hemoglobin 9.6L, Hematocrit 32.2L , Mean Corpuscular Volume 96, Mean Corpuscular Hemoglobin 28.7, Mean Corpuscular Hemoglobin Concent 29.9L, Red Cell Distribution Width 15.3H, Platelet Count 401, Mean Platelet Volume 5.7L, Neutrophils (%) (Auto) 74.4, Lymphocytes (%) (Auto) 14.0L, Monocytes (%) (Auto) 8.6, Eosinophils (%) (Auto) 2.2, Basophils (%) (Auto) 0.8, Sodium Level 148H, Potassium Level 4.8, Chloride Level 109H, Carbon Dioxide Level 23, Anion Gap 16H, Blood Urea Nitrogen 48H, Creatinine 2.6H, Estimat Glomerular Filtration Rate , Glucose Level 171H, Calcium Level 8.3L Height (Feet): 5 Height (Inches): 8.00 Weight (Pounds): 193 General Appearance: no apparent distress, alert Respiratory/Chest: no respiratory distress Abdomen: soft Extremities: other - Stable edema in LUE Skin: other - Sacral ulcer looks improved. Left buttock slough more demarcated. Right ischial ulcer with no signs of infection. Fibrotic debris present at the base. JOE MARTEL Jul 05, 2016 09:05
[2016-07-05] MEDS: Dakin's 0.5% (Full Strength) 16oz TOPIC SCH (09:50)
[2016-07-05] MEDS: Meropenem 500 MG in NS 110 ML IVPB SCH ×2 (09:57→21:08)
[2016-07-05 09:58] LABS: ABG ALLEN TEST POSITIVE; ABG BASE EXCESS -1.2; ABG PCO2 32.9 mmHg (35.0-45.0)
[2016-07-05] MEDS: Lactobacillus-GG tablet GT SCH ×3 (10:05→18:33)
[2016-07-05] MEDS: Docusate 100mg tablet NG SCH ×3 (10:06→18:00)
[2016-07-05] MEDS: Mycophenolate 250mg cap GT SCH ×2 (10:06→18:33)
[2016-07-05] MEDS: Pantoprazole Inj IVP SCH (10:06)
[2016-07-05] MEDS: Vitamin A&D Oint 2oz Tube TOPIC SCH ×2 (10:07→21:10)
--- NOTE | 2016-07-05 10:51 | Diagnostic Imaging Report ---
Indication: DYSPNEA Technique: One view of the chest Comparison: 07/01/2016 Findings: Interim removal of previously demonstrated nasogastric and endotracheal tubes area of right arm PICC remains. Interstitial congestive changes persists, minimally improved Impression: Interim nasogastric and endotracheal extubation Interim slight improvement of previously demonstrated interstitial disease
[2016-07-05] MEDS: Micafungin 100 MG in NS 110 ML IVPB SCH (11:05)
--- NOTE | 2016-07-05 12:05 | Diagnostic Imaging Report ---
Indication: Dyspnea Comparison: 07/04/16 A single view chest radiograph was obtained. Findings: No definite infiltrate or pulmonary vascular congestion identified. There is a PICC line on the right stable in position. The heart is enlarged. The aorta is mildly enlarged consistent with atherosclerotic vascular disease. The bones are osteopenic. Impression: No acute disease
[2016-07-05 12:44] VITALS: BP 122/58
--- NOTE | 2016-07-05 13:25 | General Progress Note ---
Assessment/Plan Status: stable Status Narrative MS improved- Cr 2.6 Assessment/Plan status: Acute Renal Failure on Chronic renal failure - Cr stable Acute respiratory failure- septic shock , metabolic acidosis resolved Superimposed on CRI due to DM / HTN PVD s/p amputation- Severe Anemia s/p Heart transplant sacral decub plan: extubated 07/01 Mag supplement as needed transfused slow Hydrate- free water, D5 watch CHF Sxs wound care- monitor renal parameters- optimize cardiac and pulm status- wean as possible. avoid nephrotoxics per ID and cardiology discussed with RN Subjective ROS Limited/Unobtainable: No Constitutional: Reports: malaise Allergies: Coded Allergies: ADHESIVE TAPE (Verified Allergy, Unknown, Rash, 05/27/16) PLASTIC TAPE-COPIED FROM UNCODED SECTION PENICILLINS (Verified Allergy, Unknown, 06/20/16) PROCAINE (Verified Allergy, Unknown, Rash, 08/19/14) COPIED FRON UNCODED Objective Last 24 Hour Vital Signs Date Time Temp Pulse Resp B/P Pulse Ox O2 Delivery O2 Flow Rate FiO2 07/05/16 12:44 97.5 93 20 122/58 95 Nasal Cannula 4.0 07/05/16 09:36 Nasal Cannula 4.0 28 07/05/16 09:36 98 Nasal Cannula 4.0 21 07/05/16 08:21 97.9 93 22 98/61 96 Nasal Cannula 4.0 07/05/16 08:00 95 07/05/16 04:00 95 07/05/16 04:00 98.6 91 20 150/60 97 Room Air 07/05/16 00:00 99.9 99 20 143/53 96 Nasal Cannula 2.0 07/05/16 00:00 100 07/04/16 20:17 Nasal Cannula 2.0 28 07/04/16 20:17 97 Nasal Cannula 2.0 21 07/04/16 20:00 97.9 101 28 129/66 95 Nasal Cannula 3.0 07/04/16 20:00 100 07/04/16 16:00 98 07/04/16 16:00 98.6 85 18 102/60 94 Room Air Intake and Output 07/04/16 07/05/16 19:00 07:00 Intake Total 220 ml Output Total 2320 ml Balance 220 ml -2320 ml IV Total 220 ml Output Urine Total 2320 ml Laboratory Tests 07/04/16 15:35: Arterial Blood pH 7.502H, Arterial Blood Partial Pressure CO2 30.2L, Arterial Blood Partial Pressure O2 55.1L, Arterial Blood HCO3 23.1, Arterial Blood Oxygen Saturation 89.0L, Arterial Blood Base Excess 0.6, Adama Test Positive 07/05/16 05:45: White Blood Count 8.1, Red Blood Count 3.34L, Hemoglobin 9.6L, Hematocrit 32.2L , Mean Corpuscular Volume 96, Mean Corpuscular Hemoglobin 28.7, Mean Corpuscular Hemoglobin Concent 29.9L, Red Cell Distribution Width 15.3H, Platelet Count 401, Mean Platelet Volume 5.7L, Neutrophils (%) (Auto) 74.4, Lymphocytes (%) (Auto) 14.0L, Monocytes (%) (Auto) 8.6, Eosinophils (%) (Auto) 2.2, Basophils (%) (Auto) 0.8, Sodium Level 148H, Potassium Level 4.8, Chloride Level 109H, Carbon Dioxide Level 23, Anion Gap 16H, Blood Urea Nitrogen 48H, Creatinine 2.6H, Estimat Glomerular Filtration Rate , Glucose Level 171H, Calcium Level 8.3L 07/05/16 09:36: Arterial Blood pH 7.448, Arterial Blood Partial Pressure CO2 32.9L, Arterial Blood Partial Pressure O2 81.4, Arterial Blood HCO3 22.3, Arterial Blood Oxygen Saturation 94.9, Arterial Blood Base Excess -1.2, Adama Test Positive Height (Feet): 5 Height (Inches): 8.00 Weight (Pounds): 193 General Appearance: no apparent distress Cardiovascular: tachycardia Respiratory/Chest: decreased breath sounds Abdomen: soft Objective no other changes in PE BRIJESH CALDERON Jul 05, 2016 13:25
--- NOTE | 2016-07-05 15:26 | Neurology Progress Note ---
Interim History Interim History Interim History Mr. Ralph is awake and alert. The mind is clearer. He has had no further seizures or seizure-like phenomena. His behavior is better. He is still generally weak. He denies any new neurologic symptoms. Review of Systems Neuro Review of Systems Benign. Objective Physical Exam Last Vital Signs Date Time Temp Pulse Resp B/P Pulse Ox O2 Delivery O2 Flow Rate FiO2 07/05/16 12:44 97.5 93 20 122/58 95 Nasal Cannula 4.0 07/05/16 09:36 28 Laboratory Tests Test 07/04/16 15:35 07/05/16 05:45 07/05/16 09:36 Arterial Blood pH 7.502 (7.350-7.450) 7.448 (7.350-7.450) Arterial Blood Partial Pressure CO2 30.2 mmHg (35.0-45.0) L 32.9 mmHg (35.0-45.0) L Arterial Blood Partial Pressure O2 55.1 mmHg (75.0-100.0) L 81.4 mmHg (75.0-100.0) Arterial Blood HCO3 23.1 mmol/L (22.0-26.0) 22.3 mmol/L (22.0-26.0) Arterial Blood Oxygen Saturation 89.0 % (92.0-98.0) L 94.9 % (92.0-98.0) Arterial Blood Base Excess 0.6 -1.2 Adama Test Positive Positive White Blood Count 8.1 K/UL (4.8-10.8) Red Blood Count 3.34 M/UL (4.70-6.10) L Hemoglobin 9.6 G/DL (14.2-18.0) L Hematocrit 32.2 % (42.0-52.0) L Mean Corpuscular Volume 96 FL (80-99) Mean Corpuscular Hemoglobin 28.7 PG (27.0-31.0) Mean Corpuscular Hemoglobin Concent 29.9 G/DL (32.0-36.0) L Red Cell Distribution Width 15.3 % (11.6-14.8) H Platelet Count 401 K/UL (150-450) Mean Platelet Volume 5.7 FL (6.5-10.1) L Neutrophils (%) (Auto) 74.4 % (45.0-75.0) Lymphocytes (%) (Auto) 14.0 % (20.0-45.0) L Monocytes (%) (Auto) 8.6 % (1.0-10.0) Eosinophils (%) (Auto) 2.2 % (0.0-3.0) Basophils (%) (Auto) 0.8 % (0.0-2.0) Sodium Level 148 mEQ/L (135-145) H Potassium Level 4.8 mEQ/L (3.4-4.9) Chloride Level 109 mEQ/L (98-107) H Carbon Dioxide Level 23 mEQ/L (20-30) Anion Gap 16 (5-15) H Blood Urea Nitrogen 48 mg/dL (7-23) H Creatinine 2.6 mg/dL (0.7-1.2) H Estimat Glomerular Filtration Rate mL/min (>60) Glucose Level 171 mg/dL (74-106) H Calcium Level 8.3 mg/dL (8.6-10.2) L Neurologic Exam Objective PHYSICAL EXAMINATION: GENERAL: He is a well-developed, well-nourished, obese, gentleman, lying in bed. HEAD: Normocephalic and atraumatic. NECK: No neck rigidity was observed. EENT: Examination benign. NEUROLOGICAL EXMINATION: MENTAL STATUS EXMINATION: He was awake and alert. He was oriented to self and 2017 only. He was unable to cooperate for further mental status testing. SPEECH: Normal. LANGUAGE: His comprehension and expression of language in Greek were better as per his daughter. CRANIAL NERVE EXAMINATION II: His visual deleon were intact on confrontation testing. III, IV & : The external ocular movements were full and the pupils 3 mm in diameter equal round, regular, and reactive to sluggishly to light. V & VII: Corneal reflexes were brisk bilaterally. VIII: He was able to hear well and had no nystagmus. IX & X: The gag reflex was present. XI: Sternocleidomastoids and trapezii did function. XII: The tongue was in the midline.. MOTOR SYSTEM: The tone was normal in all four extremities. Examination of muscle mass revealed no focal wasting. He did have right above- the-knee amputation and left [id number] amputation. Examination of power revealed G 5/5 in both upper extremities and G 0/5 in the lower extremities. SENSORY EXAMINATION: He responded appropriately to light touch in all four extremities. REFLEXES: Trace+ and bilaterally symmetrical at the biceps, triceps, brachioradialis, 0 at the left knee. COORDINATION, STANCE & GAIT: Could not be tested. Impression/Recommendations Diagnostic Impression 1. Mr. Sherman Ralph is a 76-year-old, right-handed, gentleman, who does have a past history of hypertension, diabetes mellitus, coronary artery disease, ischemic cardiomyopathy, heart transplant, peripheral vascular disease with right [id number] amputation and left [id number] amputation , chronic kidney disease, and a sacral decubitus who was hospitalized on 2016 for severe anemia, worsening renal function, and severe hyperkalemia . It was felt that he was septic and had been in the intensive care unit for management of all his medical problems. On the morning of 06/29/2016 he was noted to have a seizure, the description of which is unavailable. 2. He has had no further seizures or seizure-like phenomena. He feels better. He is less confused and not agitated. 3. On neurological examination, at this time, he is awake and much more alert. He is better oriented. He moves his upper extremities but not his legs. His deep tendon reflexes are globally diminished in the upper extremities and lost in the left knee. 4. His latest laboratory data on my initial evaluation revealed that he was anemic with a hemoglobin of 8.9. His arterial blood gas revealed a pH of 7.31 with a pCO2 of 52.3 and a pO2 of 67.6. His chemistry panel revealed a sodium elevated to 153, chloride elevated to 115, BUN elevated to 72, creatinine elevated to 3.0, blood glucose elevated to 189. His CRP was elevated to 21.3 and his proBNP was elevated to 6090. He was also significantly hypoalbuminemic with an albumin of 1.9. 5. The EEG done on 06/30/16 revealed a moderate encephalopathy but no focal slowing or inter-ictal phenomena. 6. The patient's history, neurological examination, and laboratory data are most compatible with a single seizure the description of which is unavailable to us. The etiology for the seizure is unclear but there is a high probability that it was a seizure symptomatic of a toxic metabolic insult. He continues to be seizure free at this time. 7. His encephalopathy is still waxing and waning, and is better today. Recommendations 1. Continue present management. 2. Correct toxic/metabolic imbalances. 3. No indication to start antiseizure medicine. 4. Observe closely. 5. Mobilize. 6. Keep room bright during the day and minimize overstimulation. Will Padilla M.D., M[facility]S.[facility]. WILL PADILLA Jul 05, 2016 15:26
[2016-07-05 16:00] VITALS: BP 108/75
[2016-07-05] MEDS ORDERED: Tubing IV Secondary IV ONE ×2 (16:08→16:20)
[2016-07-05] MEDS ORDERED: NS 275ml ONE ×3 (16:08→17:35)
--- NOTE | 2016-07-05 17:41 | Infectious Diseases Prog Note ---
Assessment/Plan Problems: (1) Sepsis Assessment & Plan: improving , on daptomycin ,meropenem , and micafungin , repeated blood culture remained negative , and sputum culture grew junaid albicans only which is most likely colonization and not real. 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 continue local wound care , and off loading. (4) Anemia Assessment & Plan: S/P blood transfusion, monitor H&H, need to rule out GI source. (5) PVD (peripheral vascular disease) Assessment & Plan: S/P B/L AKA. (6) CKD (chronic kidney disease) Assessment & Plan: avoid nephrotoxic meds, monitor UOP, and renal function, renal is following (7) Heart transplant status Assessment & Plan: recommend to communicate with his heart transplant team at [place] for further recommendation, and possible transfer to [place] for higher level of care, continue transplant meds , and adjust as per his GFR. 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, on valacyclovir renally dosed for 10 days Subjective Constitutional: Reports: fatigue HEENT: Reports: no symptoms Respiratory: Reports: no symptoms Cardiovascular: Reports: no symptoms Gastrointestinal/Abdominal: Reports: bloating, constipation Genitourinary: Reports: no symptoms Neurologic: Reports: weakness Psychiatric: Reports: no symptoms Skin: Reports: ulcer Musculoskeletal: Reports: pain Allergies: Coded Allergies: ADHESIVE TAPE (Verified Allergy, Unknown, Rash, 05/27/16) PLASTIC TAPE-COPIED FROM UNCODED SECTION PENICILLINS (Verified Allergy, Unknown, 06/20/16) PROCAINE (Verified Allergy, Unknown, Rash, 08/19/14) COPIED FRON UNCODED Subjective he was awake and coherent, up in bed, no fever or chills, no diarrhea, sating well on nasal canula Objective Vital Signs Last 24 Hour Vital Signs Date Time Temp Pulse Resp B/P Pulse Ox O2 Delivery O2 Flow Rate FiO2 07/05/16 16:00 97.8 100 21 108/75 95 Room Air 07/05/16 12:44 97.5 93 20 122/58 95 Nasal Cannula 4.0 07/05/16 12:00 93 07/05/16 09:36 Nasal Cannula 4.0 28 07/05/16 09:36 98 Nasal Cannula 4.0 21 07/05/16 08:21 97.9 93 22 98/61 96 Nasal Cannula 4.0 07/05/16 08:00 95 07/05/16 04:00 95 07/05/16 04:00 98.6 91 20 150/60 97 Room Air 07/05/16 00:00 99.9 99 20 143/53 96 Nasal Cannula 2.0 07/05/16 00:00 100 07/04/16 20:17 Nasal Cannula 2.0 28 07/04/16 20:17 97 Nasal Cannula 2.0 21 07/04/16 20:00 97.9 101 28 129/66 95 Nasal Cannula 3.0 07/04/16 20:00 100 Height (Feet): 5 Height (Inches): 8.00 Weight (Pounds): 193 General Appearance: WD/WN, no acute distress HEENT: normocephalic, atraumatic, anicteric, mucous membranes moist Respiratory/Chest: chest wall non-tender, lungs clear, normal breath sounds, no respiratory distress, decreased breath sounds, crackles/rales Cardiovascular: normal peripheral pulses, normal rate, regular rhythm, no gallop/murmur Abdomen: normal bowel sounds, soft, non tender, no organomegaly, non distended , no mass Extremities: no cyanosis, no clubbing Skin: no rash, no lesions, ulcers Laboratory Tests Test 07/05/16 05:45 07/05/16 09:36 White Blood Count 8.1 K/UL (4.8-10.8) Red Blood Count 3.34 M/UL (4.70-6.10) L Hemoglobin 9.6 G/DL (14.2-18.0) L Hematocrit 32.2 % (42.0-52.0) L Mean Corpuscular Volume 96 FL (80-99) Mean Corpuscular Hemoglobin 28.7 PG (27.0-31.0) Mean Corpuscular Hemoglobin Concent 29.9 G/DL (32.0-36.0) L Red Cell Distribution Width 15.3 % (11.6-14.8) H Platelet Count 401 K/UL (150-450) Mean Platelet Volume 5.7 FL (6.5-10.1) L Neutrophils (%) (Auto) 74.4 % (45.0-75.0) Lymphocytes (%) (Auto) 14.0 % (20.0-45.0) L Monocytes (%) (Auto) 8.6 % (1.0-10.0) Eosinophils (%) (Auto) 2.2 % (0.0-3.0) Basophils (%) (Auto) 0.8 % (0.0-2.0) Sodium Level 148 mEQ/L (135-145) H Potassium Level 4.8 mEQ/L (3.4-4.9) Chloride Level 109 mEQ/L (98-107) H Carbon Dioxide Level 23 mEQ/L (20-30) Anion Gap 16 (5-15) H Blood Urea Nitrogen 48 mg/dL (7-23) H Creatinine 2.6 mg/dL (0.7-1.2) H Estimat Glomerular Filtration Rate mL/min (>60) Glucose Level 171 mg/dL (74-106) H Calcium Level 8.3 mg/dL (8.6-10.2) L Arterial Blood pH 7.448 (7.350-7.450) Arterial Blood Partial Pressure CO2 32.9 mmHg (35.0-45.0) L Arterial Blood Partial Pressure O2 81.4 mmHg (75.0-100.0) Arterial Blood HCO3 22.3 mmol/L (22.0-26.0) Arterial Blood Oxygen Saturation 94.9 % (92.0-98.0) Arterial Blood Base Excess -1.2 Adama Test Positive Current Medications Medications (Trade) Dose Ordered Sig/Koffi Route PRN Reason Start Time Stop Time Status Last Admin Dose Admin Acetaminophen (Tylenol) 650 mg Q4H PRN ORAL T>100.5 07/03/16 14:30 08/02/16 14:29 Acetaminophen/ Hydrocodone Bitart ([place] 5/325) 1 tab Q4H PRN GT Moderate Pain (Pain Scale 4-6) 07/03/16 14:45 07/10/16 14:44 Albuterol/ Ipratropium (DuoNeb 0.5-3(2.5)mg/3ml) 3 ml Q4H PRN HHN Shortness of Breath 07/04/16 16:30 07/09/16 16:29 Bisacodyl (Dulcolax) 10 mg DAILYPRN PRN RECTAL Constipation 2nd line 07/04/16 10:45 08/03/16 10:44 Clopidogrel Bisulfate (Plavix) 75 mg DAILY GT 07/04/16 09:00 08/03/16 08:59 07/05/16 10:05 Collagenase (Santyl) 1 applic DAILY TOPIC 07/04/16 09:00 08/03/16 08:59 07/05/16 10:07 Daptomycin 500 mg/ Sodium Chloride 55 ml @ 110 mls/hr Q48H IV 07/03/16 19:00 07/10/16 18:59 07/03/16 19:01 Dextrose (Dextrose 50%) STAT PRN IV Hypoglycemia 07/03/16 14:30 08/02/16 14:29 Docusate Sodium (Colace) 100 mg TID NG 07/03/16 18:00 08/02/16 17:59 07/05/16 12:42 Epoetin Mars (Procrit (for non ESRD use)) 7,000 units MON-WED-FRI SUBQ 07/05/16 21:00 08/04/16 20:59 Furosemide (Lasix) 40 mg DAILY IV 07/04/16 09:00 08/03/16 08:59 07/05/16 10:06 Insulin Aspart (NovoLOG) EVERY 6 HOURS SUBQ 07/03/16 18:00 08/02/16 17:59 07/05/16 06:29 Lactobacillus Acidophilus (Culturelle) 1 tab THREE TIMES A DAY GT 07/03/16 18:00 08/02/16 17:59 07/05/16 12:42 Lorazepam (Ativan 2mg/ml 1ml) 0.5 mg Q4H PRN IV For Anxiety 07/03/16 14:45 07/10/16 14:44 07/04/16 09:37 Meropenem 500 mg/ Sodium Chloride 110 ml @ 220 mls/hr Q12HR IVPB 07/03/16 21:00 07/08/16 20:59 07/05/16 09:57 Micafungin Sodium/ Sodium Chloride (Mycamine/Sodium Chloride) 110 ml @ 110 mls/hr Q24H IVPB 07/04/16 11:00 07/11/16 10:59 07/05/16 11:05 Mineral Oil (Fleet's Mineral Oil Enema) 133 ml DAILYPRN PRN RECTAL Constipation 3rd Line 07/03/16 14:30 08/02/16 14:29 Mycophenolate Mofetil (Cellcept) 500 mg TWICE A DAY GT 07/03/16 18:00 08/02/16 17:59 07/05/16 10:06 Ondansetron HCl (Zofran) 4 mg Q6H PRN IVP Nausea & Vomiting 07/03/16 14:30 08/02/16 14:29 Pantoprazole (Protonix) 40 mg DAILY IVP 07/04/16 09:00 08/03/16 08:59 07/05/16 10:06 Polyethylene Glycol (Miralax) 17 gm DAILYPRN PRN GT Constipation 07/04/16 14:30 08/03/16 14:29 Sodium Hypochlorite (Dakin's Full Strength) 1 applic DAILY TOPIC 07/04/16 09:00 08/03/16 08:59 07/05/16 09:50 Tacrolimus (Prograf) 1 mg Q12HR@0800,2000 ORAL 07/03/16 20:00 08/02/16 19:59 07/05/16 10:05 Valacyclovir HCl (Valtrex) 500 mg EVERY 12 HOURS NG 07/03/16 21:00 08/02/16 20:59 07/05/16 10:05 Vitamin A/Vitamin D (A & D Oint) 1 applic EVERY 12 HOURS TOPIC 07/03/16 21:00 08/02/16 20:59 07/05/16 10:07 Zolpidem Tartrate (Ambien) 5 mg HSPRN PRN GT Insomnia 07/03/16 21:00 08/02/16 20:59 Jose Mott M.D. Jul 05, 2016 17:41
[2016-07-05] MEDS: DAPTOmycin 500 MG in NS 55 ML IV SCH (18:34)
[2016-07-05 20:00] VITALS: BP 110/70
[2016-07-05] MEDS ORDERED: Epogen (for non ESRD use) SUBQ SCH (21:00)
--- NOTE | 2016-07-05 21:03 | Cardiology Progress Note ---
Assessment/Plan Assessment/Plan hyperkalemia due ro renal failure and over use of benicar (two time the upper limit of max does recommended) acute on chronic renal filure s/p heart tx dm with endorgan disease pvd obesity anemia htn acute reparatory failure and acidosis hypernatremia presumed pneumonia hypotension ?volume related tachy cardia ? volume related remain extubated Prograf level on07/03 was 3.4 received prbc tx a few lanre go would be tolerant of anemia since post transplant cr stabel echo ef 50-55% d/w rn bnp non diagnostic in light of renal insuf presume pneumonia on abx tele reviewed sinus same meds dc tele soon duration 45 min Subjective ROS Limited/Unobtainable: Yes Respiratory: Denies: shortness of breath Gastrointestinal/Abdominal: Denies: abdominal pain Subjective Objective Last 24 Hour Vital Signs Date Time Temp Pulse Resp B/P Pulse Ox O2 Delivery O2 Flow Rate FiO2 07/05/16 19:25 Nasal Cannula 4.0 28 07/05/16 19:25 96 Nasal Cannula 4.0 07/05/16 16:00 97.8 100 21 108/75 95 Room Air 07/05/16 12:44 97.5 93 20 122/58 95 Nasal Cannula 4.0 07/05/16 12:00 93 07/05/16 09:36 Nasal Cannula 4.0 28 07/05/16 09:36 98 Nasal Cannula 4.0 21 07/05/16 08:21 97.9 93 22 98/61 96 Nasal Cannula 4.0 07/05/16 08:00 95 07/05/16 04:00 95 07/05/16 04:00 98.6 91 20 150/60 97 Room Air 07/05/16 00:00 99.9 99 20 143/53 96 Nasal Cannula 2.0 07/05/16 00:00 100 General Appearance: no apparent distress Cardiovascular: normal rate, regular rhythm Respiratory/Chest: lungs clear, normal breath sounds Abdomen: normal bowel sounds, non tender, soft Extremities: no swelling Intake and Output 07/04/16 07/05/16 19:00 07:00 Intake Total 220 ml Output Total 2320 ml Balance 220 ml -2320 ml IV Total 220 ml Output Urine Total 2320 ml Laboratory Tests Test 07/05/16 05:45 07/05/16 09:36 White Blood Count 8.1 K/UL (4.8-10.8) Red Blood Count 3.34 M/UL (4.70-6.10) L Hemoglobin 9.6 G/DL (14.2-18.0) L Hematocrit 32.2 % (42.0-52.0) L Mean Corpuscular Volume 96 FL (80-99) Mean Corpuscular Hemoglobin 28.7 PG (27.0-31.0) Mean Corpuscular Hemoglobin Concent 29.9 G/DL (32.0-36.0) L Red Cell Distribution Width 15.3 % (11.6-14.8) H Platelet Count 401 K/UL (150-450) Mean Platelet Volume 5.7 FL (6.5-10.1) L Neutrophils (%) (Auto) 74.4 % (45.0-75.0) Lymphocytes (%) (Auto) 14.0 % (20.0-45.0) L Monocytes (%) (Auto) 8.6 % (1.0-10.0) Eosinophils (%) (Auto) 2.2 % (0.0-3.0) Basophils (%) (Auto) 0.8 % (0.0-2.0) Sodium Level 148 mEQ/L (135-145) H Potassium Level 4.8 mEQ/L (3.4-4.9) Chloride Level 109 mEQ/L (98-107) H Carbon Dioxide Level 23 mEQ/L (20-30) Anion Gap 16 (5-15) H Blood Urea Nitrogen 48 mg/dL (7-23) H Creatinine 2.6 mg/dL (0.7-1.2) H Estimat Glomerular Filtration Rate mL/min (>60) Glucose Level 171 mg/dL (74-106) H Calcium Level 8.3 mg/dL (8.6-10.2) L Arterial Blood pH 7.448 (7.350-7.450) Arterial Blood Partial Pressure CO2 32.9 mmHg (35.0-45.0) L Arterial Blood Partial Pressure O2 81.4 mmHg (75.0-100.0) Arterial Blood HCO3 22.3 mmol/L (22.0-26.0) Arterial Blood Oxygen Saturation 94.9 % (92.0-98.0) Arterial Blood Base Excess -1.2 Adama Test Positive HAILEE PATELb 20, 2017 21:03
[2016-07-06] MEDS: NovoLOG Insulin Flexpen SUBQ SCH ×5 (00:22→23:41)
[2016-07-06 00:30] VITALS: BP 112/76
[2016-07-06 04:21] VITALS: BP 128/71
[2016-07-06 08:02] VITALS: BP 124/71
[2016-07-06] MEDS: Meropenem 500 MG in NS 110 ML IVPB SCH ×2 (09:10→20:40)
[2016-07-06] MEDS: Docusate 100mg tablet NG SCH ×3 (09:11→17:51)
[2016-07-06] MEDS: Mycophenolate 250mg cap GT SCH ×2 (09:11→17:44)
[2016-07-06] MEDS: Lactobacillus-GG tablet GT SCH ×3 (09:12→17:44)
[2016-07-06] MEDS: Vitamin A&D Oint 2oz Tube TOPIC SCH ×2 (09:13→20:48)
[2016-07-06] MEDS: Dakin's 0.5% (Full Strength) 16oz TOPIC SCH (09:16)
[2016-07-06] MEDS: Pantoprazole Inj IVP SCH (09:36)
[2016-07-06] MEDS: Micafungin 100 MG in NS 110 ML IVPB SCH (11:00)
[2016-07-06 11:36] VITALS: BP 127/67
--- NOTE | 2016-07-06 12:42 | General Progress Note ---
Assessment/Plan Status: unchanged Assessment/Plan status: Acute Renal Failure on Chronic renal failure - Cr stable Acute respiratory failure- septic shock , metabolic acidosis resolved Superimposed on CRI due to DM / HTN PVD s/p amputation- Severe Anemia s/p Heart transplant sacral decub plan: no labs today- extubated 07/01 Mag supplement as needed transfused watch CHF Sxs wound care- monitor renal parameters- optimize cardiac and pulm status- wean as possible. avoid nephrotoxics per ID and cardiology discussed with RN Subjective ROS Limited/Unobtainable: No Constitutional: Reports: malaise, weakness Allergies: Coded Allergies: ADHESIVE TAPE (Verified Allergy, Unknown, Rash, 05/27/16) PLASTIC TAPE-COPIED FROM UNCODED SECTION PENICILLINS (Verified Allergy, Unknown, 06/20/16) PROCAINE (Verified Allergy, Unknown, Rash, 08/19/14) COPIED FRON UNCODED Objective Last 24 Hour Vital Signs Date Time Temp Pulse Resp B/P Pulse Ox O2 Delivery O2 Flow Rate FiO2 07/06/16 11:36 99.0 95 20 127/67 96 Nasal Cannula 4.0 07/06/16 08:02 98.2 93 20 124/71 97 Nasal Cannula 4.0 07/06/16 08:00 94 07/06/16 06:38 96 Room Air 07/06/16 06:38 Nasal Cannula 4.0 07/06/16 04:21 97.5 92 20 128/71 97 Room Air 07/06/16 04:00 88 07/06/16 00:30 98.2 95 20 112/76 98 Room Air 07/06/16 00:00 95 07/05/16 20:00 97 07/05/16 20:00 97.7 101 20 110/70 97 Room Air 07/05/16 19:25 Nasal Cannula 4.0 28 07/05/16 19:25 96 Nasal Cannula 4.0 07/05/16 16:00 98 07/05/16 16:00 97.8 100 21 108/75 95 Room Air 07/05/16 12:44 97.5 93 20 122/58 95 Nasal Cannula 4.0 Intake and Output 07/05/16 07/06/16 19:00 07:00 Intake Total 460 ml Output Total 550 ml 1200 ml Balance -90 ml -1200 ml Intake Oral 240 ml IV Total 220 ml Output Urine Total 550 ml 1200 ml # Bowel Movements 2 Height (Feet): 5 Height (Inches): 8.00 Weight (Pounds): 193 General Appearance: no apparent distress Cardiovascular: tachycardia Respiratory/Chest: decreased breath sounds Objective no other changes in PE BRIJESH CALDERON Jul 06, 2016 12:42
--- NOTE | 2016-07-06 14:09 | Diagnostic Imaging Report ---
Indications: Needs long-term IV access Technique: Procedure performed at bedside. Ultrasound confirms patent compressible vein. Total sterile technique, including sterile probe cover and sterile gel, sterile gloves, hand hygiene, hat, mask,, sterile gown, large sterile drape, and preparation with 2% chlorhexidine utilized. Local anesthesia with 1% lidocaine. Under real-time ultrasound guidance, puncture right basilic vein using 21-gauge needle, passage 0.018 guidewire, exchange for 5 [place] peel-away sheath. 5 [place] Bard dual-lumen power PICC cut to 39 cm. It was inserted through the peel-away sheath. Peel-away sheath and guidewire removed. Catheter fixed to the skin. Both catheter ports aspirated and flushed. Patient tolerated procedure well, without immediate complication. Followup chest x-ray obtained, documents catheter tip position at the downstream superior vena cava. Impression: Successful bedside placement of right arm PICC under sonographic guidance, as described above.
--- NOTE | 2016-07-06 14:10 | Diagnostic Imaging Report ---
Indications: Endotracheal tube placement Technique: Portable AP chest Findings: Comparison: 06/21/2016 Endotracheal tube has been placed, tip 4-5 cm above diana. PICC remains in place. Left costophrenic angle excluded from image. Bilateral interstitial infiltrates unchanged. IMPRESSION: Endotracheal tube in good position No other significant change from one day prior
--- NOTE | 2016-07-06 14:10 | Diagnostic Imaging Report ---
Indications: Bowel distention. Technique: AP view of the abdomen Findings: Comparison: None. Bowel gas pattern is unremarkable. Scattered arterial mural calcifications.. Suggestion of disc space narrowing with marginal osteophyte formation lower lumbar spine. Surgical clips, intravascular stent right inguinal region.. IMPRESSION: No evidence of acute abdominopelvic disease Chronic changes as described.
--- NOTE | 2016-07-06 15:18 | Pulmonology Progress Note ---
Assessment/Plan Problems: (1) Sepsis (2) Severe anemia (3) Acute encephalopathy (4) ATN (acute tubular necrosis) (5) History of heart transplant (6) Decubitus skin ulcer Assessment/Plan check h/h wbc wnl doing better dc planning to IV antibiotics check cultures check electrolytes wound care Subjective ROS Limited/Unobtainable: No Interval Events: late note for was seen yester, the note follows today , [facility] Constitutional: Reports: no symptoms HEENT: Repors: no symptoms Allergies: Coded Allergies: ADHESIVE TAPE (Verified Allergy, Unknown, Rash, 05/27/16) PLASTIC TAPE-COPIED FROM UNCODED SECTION PENICILLINS (Verified Allergy, Unknown, 06/20/16) PROCAINE (Verified Allergy, Unknown, Rash, 08/19/14) COPIED FRON UNCODED Objective Last 24 Hour Vital Signs Date Time Temp Pulse Resp B/P Pulse Ox O2 Delivery O2 Flow Rate FiO2 07/06/16 11:36 99.0 95 20 127/67 96 Nasal Cannula 4.0 07/06/16 08:02 98.2 93 20 124/71 97 Nasal Cannula 4.0 07/06/16 08:00 94 07/06/16 06:38 96 Room Air 07/06/16 06:38 Nasal Cannula 4.0 07/06/16 04:21 97.5 92 20 128/71 97 Room Air 07/06/16 04:00 88 07/06/16 00:30 98.2 95 20 112/76 98 Room Air 07/06/16 00:00 95 07/05/16 20:00 97 07/05/16 20:00 97.7 101 20 110/70 97 Room Air 07/05/16 19:25 Nasal Cannula 4.0 28 07/05/16 19:25 96 Nasal Cannula 4.0 07/05/16 16:00 98 07/05/16 16:00 97.8 100 21 108/75 95 Room Air Intake and Output 07/05/16 07/06/16 19:00 07:00 Intake Total 460 ml Output Total 550 ml 1200 ml Balance -90 ml -1200 ml Intake Oral 240 ml IV Total 220 ml Output Urine Total 550 ml 1200 ml # Bowel Movements 2 General Appearance: WD/WN Respiratory/Chest: chest wall non-tender, lungs clear Cardiovascular: normal peripheral pulses, normal rate Abdomen: normal bowel sounds, no organomegaly Skin: no rash Lymphatic: no neck adenopathy, no groin adenopathy Musculoskeletal: no effusion Current Medications Medications (Trade) Dose Ordered Sig/Koffi Route PRN Reason Start Time Stop Time Status Last Admin Dose Admin Acetaminophen (Tylenol) 650 mg Q4H PRN ORAL T>100.5 07/03/16 14:30 08/02/16 14:29 Acetaminophen/ Hydrocodone Bitart ([place] 5/325) 1 tab Q4H PRN GT Moderate Pain (Pain Scale 4-6) 07/03/16 14:45 07/10/16 14:44 Albuterol/ Ipratropium (DuoNeb 0.5-3(2.5)mg/3ml) 3 ml Q4H PRN HHN Shortness of Breath 07/04/16 16:30 07/09/16 16:29 Bisacodyl (Dulcolax) 10 mg DAILYPRN PRN RECTAL Constipation 2nd line 07/04/16 10:45 08/03/16 10:44 Clopidogrel Bisulfate (Plavix) 75 mg DAILY GT 07/04/16 09:00 08/03/16 08:59 07/06/16 09:12 Collagenase (Santyl) 1 applic DAILY TOPIC 07/04/16 09:00 08/03/16 08:59 07/06/16 09:16 Daptomycin 500 mg/ Sodium Chloride 55 ml @ 110 mls/hr Q48H IV 07/03/16 19:00 07/10/16 18:59 07/05/16 18:34 Dextrose (Dextrose 50%) STAT PRN IV Hypoglycemia 07/03/16 14:30 08/02/16 14:29 Docusate Sodium (Colace) 100 mg TID NG 07/03/16 18:00 08/02/16 17:59 07/06/16 13:11 Epoetin Mars (Procrit (for non ESRD use)) 7,000 units MON-WED-FRI SUBQ 07/05/16 21:00 08/04/16 20:59 07/05/16 21:09 Furosemide (Lasix) 40 mg DAILY IV 07/04/16 09:00 08/03/16 08:59 07/06/16 09:10 Insulin Aspart (NovoLOG) EVERY 6 HOURS SUBQ 07/03/16 18:00 08/02/16 17:59 07/06/16 12:07 Lactobacillus Acidophilus (Culturelle) 1 tab THREE TIMES A DAY GT 07/03/16 18:00 08/02/16 17:59 07/06/16 13:12 Lorazepam (Ativan 2mg/ml 1ml) 0.5 mg Q4H PRN IV For Anxiety 07/03/16 14:45 07/10/16 14:44 07/04/16 09:37 Meropenem 500 mg/ Sodium Chloride 110 ml @ 220 mls/hr Q12HR IVPB 07/03/16 21:00 07/08/16 20:59 07/06/16 09:10 Micafungin Sodium/ Sodium Chloride (Mycamine/Sodium Chloride) 110 ml @ 110 mls/hr Q24H IVPB 07/04/16 11:00 07/11/16 10:59 07/06/16 11:00 Mineral Oil (Fleet's Mineral Oil Enema) 133 ml DAILYPRN PRN RECTAL Constipation 3rd Line 07/03/16 14:30 08/02/16 14:29 Mycophenolate Mofetil (Cellcept) 500 mg TWICE A DAY GT 07/03/16 18:00 08/02/16 17:59 07/06/16 09:11 Ondansetron HCl (Zofran) 4 mg Q6H PRN IVP Nausea & Vomiting 07/03/16 14:30 08/02/16 14:29 Pantoprazole (Protonix) 40 mg DAILY IVP 07/04/16 09:00 08/03/16 08:59 07/06/16 09:36 Polyethylene Glycol (Miralax) 17 gm DAILYPRN PRN GT Constipation 07/04/16 14:30 08/03/16 14:29 Sodium Hypochlorite (Dakin's Full Strength) 1 applic DAILY TOPIC 07/04/16 09:00 08/03/16 08:59 07/06/16 09:16 Tacrolimus (Prograf) 1 mg Q12HR@0800,2000 ORAL 07/03/16 20:00 08/02/16 19:59 07/06/16 09:11 Valacyclovir HCl (Valtrex) 500 mg EVERY 12 HOURS NG 07/03/16 21:00 3/20/17 20:59 07/06/16 09:12 Vitamin A/Vitamin D (A & D Oint) 1 applic EVERY 12 HOURS TOPIC 07/03/16 21:00 08/02/16 20:59 07/06/16 09:13 Zolpidem Tartrate (Ambien) 5 mg HSPRN PRN GT Insomnia 07/03/16 21:00 08/02/16 20:59 AMADO SCHULER Jul 06, 2016 15:18
--- NOTE | 2016-07-06 15:19 | Pulmonology Progress Note ---
Assessment/Plan Problems: (1) Sepsis (2) Severe anemia (3) Acute encephalopathy (4) ATN (acute tubular necrosis) (5) History of heart transplant (6) Decubitus skin ulcer Assessment/Plan check h/h wbc wnl doing better dc planning to IV antibiotics check cultures check electrolytes wound care awaiting Medicare decision about discharge. Subjective ROS Limited/Unobtainable: No Interval Events: awake, comfortable, d/w daughter who is appealing the discharge. Allergies: Coded Allergies: ADHESIVE TAPE (Verified Allergy, Unknown, Rash, 05/27/16) PLASTIC TAPE-COPIED FROM UNCODED SECTION PENICILLINS (Verified Allergy, Unknown, 06/20/16) PROCAINE (Verified Allergy, Unknown, Rash, 08/19/14) COPIED FRON UNCODED Objective Last 24 Hour Vital Signs Date Time Temp Pulse Resp B/P Pulse Ox O2 Delivery O2 Flow Rate FiO2 07/06/16 11:36 99.0 95 20 127/67 96 Nasal Cannula 4.0 07/06/16 08:02 98.2 93 20 124/71 97 Nasal Cannula 4.0 07/06/16 08:00 94 07/06/16 06:38 96 Room Air 07/06/16 06:38 Nasal Cannula 4.0 07/06/16 04:21 97.5 92 20 128/71 97 Room Air 07/06/16 04:00 88 07/06/16 00:30 98.2 95 20 112/76 98 Room Air 07/06/16 00:00 95 07/05/16 20:00 97 07/05/16 20:00 97.7 101 20 110/70 97 Room Air 07/05/16 19:25 Nasal Cannula 4.0 28 07/05/16 19:25 96 Nasal Cannula 4.0 07/05/16 16:00 98 07/05/16 16:00 97.8 100 21 108/75 95 Room Air Intake and Output 07/05/16 07/06/16 19:00 07:00 Intake Total 460 ml Output Total 550 ml 1200 ml Balance -90 ml -1200 ml Intake Oral 240 ml IV Total 220 ml Output Urine Total 550 ml 1200 ml # Bowel Movements 2 Objective General Appearance: WD/WN Respiratory/Chest: chest wall non-tender, lungs clear Cardiovascular: normal peripheral pulses, normal rate Abdomen: normal bowel sounds, no organomegaly Skin: no rash Lymphatic: no neck adenopathy, no groin adenopathy Musculoskeletal: no effusion General Appearance: WD/WN Current Medications Medications (Trade) Dose Ordered Sig/Koffi Route PRN Reason Start Time Stop Time Status Last Admin Dose Admin Acetaminophen (Tylenol) 650 mg Q4H PRN ORAL T>100.5 07/03/16 14:30 08/02/16 14:29 Acetaminophen/ Hydrocodone Bitart ([place] 5/325) 1 tab Q4H PRN GT Moderate Pain (Pain Scale 4-6) 07/03/16 14:45 07/10/16 14:44 Albuterol/ Ipratropium (DuoNeb 0.5-3(2.5)mg/3ml) 3 ml Q4H PRN HHN Shortness of Breath 07/04/16 16:30 07/09/16 16:29 Bisacodyl (Dulcolax) 10 mg DAILYPRN PRN RECTAL Constipation 2nd line 07/04/16 10:45 08/03/16 10:44 Clopidogrel Bisulfate (Plavix) 75 mg DAILY GT 07/04/16 09:00 08/03/16 08:59 07/06/16 09:12 Collagenase (Santyl) 1 applic DAILY TOPIC 07/04/16 09:00 08/03/16 08:59 07/06/16 09:16 Daptomycin 500 mg/ Sodium Chloride 55 ml @ 110 mls/hr Q48H IV 07/03/16 19:00 07/10/16 18:59 07/05/16 18:34 Dextrose (Dextrose 50%) STAT PRN IV Hypoglycemia 07/03/16 14:30 08/02/16 14:29 Docusate Sodium (Colace) 100 mg TID NG 07/03/16 18:00 08/02/16 17:59 07/06/16 13:11 Epoetin Mars (Procrit (for non ESRD use)) 7,000 units MON-WED-FRI SUBQ 07/05/16 21:00 08/04/16 20:59 07/05/16 21:09 Furosemide (Lasix) 40 mg DAILY IV 07/04/16 09:00 08/03/16 08:59 07/06/16 09:10 Insulin Aspart (NovoLOG) EVERY 6 HOURS SUBQ 07/03/16 18:00 08/02/16 17:59 07/06/16 12:07 Lactobacillus Acidophilus (Culturelle) 1 tab THREE TIMES A DAY GT 07/03/16 18:00 08/02/16 17:59 07/06/16 13:12 Lorazepam (Ativan 2mg/ml 1ml) 0.5 mg Q4H PRN IV For Anxiety 07/03/16 14:45 07/10/16 14:44 07/04/16 09:37 Meropenem 500 mg/ Sodium Chloride 110 ml @ 220 mls/hr Q12HR IVPB 07/03/16 21:00 07/08/16 20:59 07/06/16 09:10 Micafungin Sodium/ Sodium Chloride (Mycamine/Sodium Chloride) 110 ml @ 110 mls/hr Q24H IVPB 07/04/16 11:00 07/11/16 10:59 07/06/16 11:00 Mineral Oil (Fleet's Mineral Oil Enema) 133 ml DAILYPRN PRN RECTAL Constipation 3rd Line 07/03/16 14:30 08/02/16 14:29 Mycophenolate Mofetil (Cellcept) 500 mg TWICE A DAY GT 07/03/16 18:00 08/02/16 17:59 07/06/16 09:11 Ondansetron HCl (Zofran) 4 mg Q6H PRN IVP Nausea & Vomiting 07/03/16 14:30 08/02/16 14:29 Pantoprazole (Protonix) 40 mg DAILY IVP 07/04/16 09:00 08/03/16 08:59 07/06/16 09:36 Polyethylene Glycol (Miralax) 17 gm DAILYPRN PRN GT Constipation 07/04/16 14:30 08/03/16 14:29 Sodium Hypochlorite (Dakin's Full Strength) 1 applic DAILY TOPIC 07/04/16 09:00 08/03/16 08:59 07/06/16 09:16 Tacrolimus (Prograf) 1 mg Q12HR@0800,2000 ORAL 07/03/16 20:00 08/02/16 19:59 07/06/16 09:11 Valacyclovir HCl (Valtrex) 500 mg EVERY 12 HOURS NG 07/03/16 21:00 08/02/16 20:59 07/06/16 09:12 Vitamin A/Vitamin D (A & D Oint) 1 applic EVERY 12 HOURS TOPIC 07/03/16 21:00 08/02/16 20:59 07/06/16 09:13 Zolpidem Tartrate (Ambien) 5 mg HSPRN PRN GT Insomnia 07/03/16 21:00 08/02/16 20:59 AMADO SCHULER Jul 06, 2016 15:19
[2016-07-06 16:00] VITALS: BP 143/63
--- NOTE | 2016-07-06 16:00 | Cardiology Progress Note ---
Assessment/Plan Assessment/Plan hyperkalemia due ro renal failure and over use of benicar (two time the upper limit of max does recommended) acute on chronic renal filure s/p heart tx dm with endorgan disease pvd obesity anemia htn acute reparatory failure and acidosis hypernatremia presumed pneumonia hypotension ?volume related tachy cardia ? volume related remain extubated Prograf level on07/03 was 3.4 received prbc tx a few lanre go would be tolerant of anemia since post transplant cr stabel echo ef 50-55% d/w rn bnp non diagnostic in light of renal insuf presume pneumonia on abx tele reviewed sinus same meds dc tele soon will increse prograff to get a target level of 5-10 duration 45 min Subjective ROS Limited/Unobtainable: Yes Subjective a bit agitated denies pain but pushes me away when i try to examin her Objective Last 24 Hour Vital Signs Date Time Temp Pulse Resp B/P Pulse Ox O2 Delivery O2 Flow Rate FiO2 07/06/16 12:00 95 07/06/16 11:36 99.0 95 20 127/67 96 Nasal Cannula 4.0 07/06/16 08:02 98.2 93 20 124/71 97 Nasal Cannula 4.0 07/06/16 08:00 94 07/06/16 06:38 96 Room Air 07/06/16 06:38 Nasal Cannula 4.0 07/06/16 04:21 97.5 92 20 128/71 97 Room Air 07/06/16 04:00 88 07/06/16 00:30 98.2 95 20 112/76 98 Room Air 07/06/16 00:00 95 07/05/16 20:00 97 07/05/16 20:00 97.7 101 20 110/70 97 Room Air 07/05/16 19:25 Nasal Cannula 4.0 28 07/05/16 19:25 96 Nasal Cannula 4.0 07/05/16 16:00 98 07/05/16 16:00 97.8 100 21 108/75 95 Room Air General Appearance: no apparent distress, alert Neck: supple Cardiovascular: normal rate, regular rhythm Respiratory/Chest: lungs clear, normal breath sounds Abdomen: normal bowel sounds, non tender, soft Extremities: no swelling Intake and Output 07/05/16 07/06/16 19:00 07:00 Intake Total 460 ml Output Total 550 ml 1200 ml Balance -90 ml -1200 ml Intake Oral 240 ml IV Total 220 ml Output Urine Total 550 ml 1200 ml # Bowel Movements 2 HAILEE PATEL Jul 06, 2016 16:00
--- NOTE | 2016-07-06 16:26 | Infectious Diseases Prog Note ---
Assessment/Plan Problems: (1) Sepsis Assessment & Plan: continue daptomycin(day 17) for 4 weeks ,meropenem (day 18 ) for 6 weeks , and micafungin (day10) for 2 weeks , repeated blood culture remained negative , and sputum culture grew junaid albicans only which is most likely colonization and not real. 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 continue local wound care , and off loading. (4) Anemia Assessment & Plan: S/P blood transfusion, monitor H&H, need to rule out GI source. (5) PVD (peripheral vascular disease) Assessment & Plan: S/P B/L AKA. (6) CKD (chronic kidney disease) Assessment & Plan: avoid nephrotoxic meds, monitor UOP, and renal function, renal is following (7) Heart transplant status Assessment & Plan: recommend to communicate with his heart transplant team at [facility] for further recommendation, and possible transfer to [facility] for higher level of care, continue transplant meds , and adjust as per his GFR. 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, on valacyclovir renally dosed for 10 days Subjective Constitutional: Denies: anorexia, chills, drenching sweats, fatigue, fever, no symptoms, other HEENT: Denies: congestion, coryza, dysphagia, hearing change, no symptoms, other, visual change Respiratory: Denies: dry cough, no symptoms, other, productive cough, shortness of breath Cardiovascular: Denies: chest pain, dyspnea on exertion, no symptoms, other, palpitations Gastrointestinal/Abdominal: Reports: bloating, constipation Genitourinary: Denies: dysuria, frequency, hematuria, no symptoms, nocturia, other Neurologic: Reports: weakness Psychiatric: Reports: depression Skin: Reports: ulcer Musculoskeletal: Reports: pain Allergies: Coded Allergies: ADHESIVE TAPE (Verified Allergy, Unknown, Rash, 05/27/16) PLASTIC TAPE-COPIED FROM UNCODED SECTION PENICILLINS (Verified Allergy, Unknown, 06/20/16) PROCAINE (Verified Allergy, Unknown, Rash, 08/19/14) COPIED FRON UNCODED Subjective he was awake and coherent, up in bed, no fever or chills, no diarrhea, sating well on nasal canula Objective Vital Signs Last 24 Hour Vital Signs Date Time Temp Pulse Resp B/P Pulse Ox O2 Delivery O2 Flow Rate FiO2 07/06/16 12:00 95 07/06/16 11:36 99.0 95 20 127/67 96 Nasal Cannula 4.0 07/06/16 08:02 98.2 93 20 124/71 97 Nasal Cannula 4.0 07/06/16 08:00 94 07/06/16 06:38 96 Room Air 07/06/16 06:38 Nasal Cannula 4.0 07/06/16 04:21 97.5 92 20 128/71 97 Room Air 07/06/16 04:00 88 07/06/16 00:30 98.2 95 20 112/76 98 Room Air 07/06/16 00:00 95 07/05/16 20:00 97 07/05/16 20:00 97.7 101 20 110/70 97 Room Air 07/05/16 19:25 Nasal Cannula 4.0 28 07/05/16 19:25 96 Nasal Cannula 4.0 Height (Feet): 5 Height (Inches): 8.00 Weight (Pounds): 193 General Appearance: WD/WN, no acute distress HEENT: normocephalic, atraumatic, anicteric, mucous membranes moist Respiratory/Chest: chest wall non-tender, normal breath sounds, no respiratory distress, no accessory muscle use, decreased breath sounds, crackles/rales Cardiovascular: normal peripheral pulses, normal rate, regular rhythm, no gallop/murmur Abdomen: normal bowel sounds, soft, non tender, no organomegaly, non distended , no mass Extremities: no cyanosis, other - ampuated Skin: no rash, ulcers Current Medications Medications (Trade) Dose Ordered Sig/Koffi Route PRN Reason Start Time Stop Time Status Last Admin Dose Admin Acetaminophen (Tylenol) 650 mg Q4H PRN ORAL T>100.5 07/03/16 14:30 08/02/16 14:29 Acetaminophen/ Hydrocodone Bitart ([place] 5/325) 1 tab Q4H PRN GT Moderate Pain (Pain Scale 4-6) 07/03/16 14:45 07/10/16 14:44 Albuterol/ Ipratropium (DuoNeb 0.5-3(2.5)mg/3ml) 3 ml Q4H PRN HHN Shortness of Breath 07/04/16 16:30 07/09/16 16:29 Bisacodyl (Dulcolax) 10 mg DAILYPRN PRN RECTAL Constipation 2nd line 07/04/16 10:45 08/03/16 10:44 Clopidogrel Bisulfate (Plavix) 75 mg DAILY GT 07/04/16 09:00 08/03/16 08:59 07/06/16 09:12 Collagenase (Santyl) 1 applic DAILY TOPIC 07/04/16 09:00 08/03/16 08:59 07/06/16 09:16 Daptomycin 500 mg/ Sodium Chloride 55 ml @ 110 mls/hr Q48H IV 07/03/16 19:00 07/10/16 18:59 07/05/16 18:34 Dextrose (Dextrose 50%) STAT PRN IV Hypoglycemia 07/03/16 14:30 08/02/16 14:29 Docusate Sodium (Colace) 100 mg TID NG 07/03/16 18:00 08/02/16 17:59 07/06/16 13:11 Epoetin Mars (Procrit (for non ESRD use)) 7,000 units TUE-WED-TUE SUBQ 07/05/16 21:00 08/04/16 20:59 07/05/16 21:09 Furosemide (Lasix) 40 mg DAILY IV 07/04/16 09:00 08/03/16 08:59 07/06/16 09:10 Insulin Aspart (NovoLOG) EVERY 6 HOURS SUBQ 07/03/16 18:00 08/02/16 17:59 07/06/16 12:07 Lactobacillus Acidophilus (Culturelle) 1 tab THREE TIMES A DAY GT 07/03/16 18:00 08/02/16 17:59 07/06/16 13:12 Lorazepam (Ativan 2mg/ml 1ml) 0.5 mg Q4H PRN IV For Anxiety 07/03/16 14:45 07/10/16 14:44 07/04/16 09:37 Meropenem 500 mg/ Sodium Chloride 110 ml @ 220 mls/hr Q12HR IVPB 07/03/16 21:00 07/08/16 20:59 07/06/16 09:10 Micafungin Sodium/ Sodium Chloride (Mycamine/Sodium Chloride) 110 ml @ 110 mls/hr Q24H IVPB 07/04/16 11:00 07/11/16 10:59 07/06/16 11:00 Mineral Oil (Fleet's Mineral Oil Enema) 133 ml DAILYPRN PRN RECTAL Constipation 3rd Line 07/03/16 14:30 08/02/16 14:29 Mycophenolate Mofetil (Cellcept) 500 mg TWICE A DAY GT 07/03/16 18:00 08/02/16 17:59 07/06/16 09:11 Ondansetron HCl (Zofran) 4 mg Q6H PRN IVP Nausea & Vomiting 07/03/16 14:30 08/02/16 14:29 Pantoprazole (Protonix) 40 mg DAILY IVP 07/04/16 09:00 08/03/16 08:59 07/06/16 09:36 Polyethylene Glycol (Miralax) 17 gm DAILYPRN PRN GT Constipation 07/04/16 14:30 08/03/16 14:29 Sodium Hypochlorite (Dakin's Full Strength) 1 applic DAILY TOPIC 07/04/16 09:00 08/03/16 08:59 07/06/16 09:16 Tacrolimus (Prograf) 0.5 mg Q12HR@0800,1999 ORAL 07/06/16 20:00 08/05/16 19:59 Tacrolimus (Prograf) 1 mg Q12HR@0800,1999 ORAL 07/06/16 20:00 08/05/16 19:59 Valacyclovir HCl (Valtrex) 500 mg EVERY 12 HOURS NG 07/03/16 21:00 08/02/16 20:59 07/06/16 09:12 Vitamin A/Vitamin D (A & D Oint) 1 applic EVERY 12 HOURS TOPIC 07/03/16 21:00 08/02/16 20:59 07/06/16 09:13 Zolpidem Tartrate (Ambien) 5 mg HSPRN PRN GT Insomnia 07/03/16 21:00 08/02/16 20:59 Jose Mott M.D. Jul 06, 2016 16:26
[2016-07-06 20:00] VITALS: BP 140/63
--- NOTE | 2016-07-06 21:41 | Neurology Progress Note ---
Interim History Interim History Interim History Mr. Ralph is awake and alert. The mind is clearer. He has had no further seizures or seizure-like phenomena. His behavior is better. He is still generally weak. He denies any new neurologic symptoms. As per his son he is still cognitively worse than his baseline. Review of Systems Neuro Review of Systems Benign. Objective Physical Exam Last Vital Signs Date Time Temp Pulse Resp B/P Pulse Ox O2 Delivery O2 Flow Rate FiO2 07/06/16 20:00 97.0 95 21 140/63 97 Room Air 07/06/16 17:10 4.0 36 Neurologic Exam Objective PHYSICAL EXAMINATION: GENERAL: He is a well-developed, well-nourished, obese, gentleman, lying in bed. HEAD: Normocephalic and atraumatic. NECK: No neck rigidity was observed. EENT: Examination benign. NEUROLOGICAL EXMINATION: MENTAL STATUS EXMINATION: He was awake and alert. He was oriented to self and 2017 only. He was unable to cooperate for further mental status testing. SPEECH: Normal. LANGUAGE: His comprehension and expression of language in Cypriot was stable. CRANIAL NERVE EXAMINATION II: His visual deleon were intact on confrontation testing. III, IV & : The external ocular movements were full and the pupils 3 mm in diameter equal round, regular, and reactive to sluggishly to light. V & VII: Corneal reflexes were brisk bilaterally. VIII: He was able to hear well and had no nystagmus. IX & X: The gag reflex was present. XI: Sternocleidomastoids and trapezii did function. XII: The tongue was in the midline.. MOTOR SYSTEM: The tone was normal in all four extremities. Examination of muscle mass revealed no focal wasting. 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 Examination of power revealed G 5/5 in both upper extremities and G 0/5 in the lower extremities. SENSORY EXAMINATION: He responded appropriately to light touch in all four extremities. REFLEXES: Trace+ and bilaterally symmetrical at the biceps, triceps, brachioradialis, 0 at the left knee. COORDINATION, STANCE & GAIT: Could not be tested. Impression/Recommendations Diagnostic Impression 1. Mr. Sherman Ralph is a 76-year-old, right-handed, gentleman, who does have a past history of hypertension, diabetes mellitus, coronary artery disease, ischemic cardiomyopathy, heart transplant, peripheral vascular disease with right [id number] amputation and left [id number] amputation , chronic kidney disease, and a sacral decubitus who was hospitalized on 2016 for severe anemia, worsening renal function, and severe hyperkalemia . It was felt that he was septic and had been in the intensive care unit for management of all his medical problems. On the morning of 06/29/2016 he was noted to have a seizure, the description of which is unavailable. 2. He has had no further seizures or seizure-like phenomena. He feels better. He is less confused and not agitated. 3. On neurological examination, at this time, he is awake and much more alert. He is better oriented. He moves his upper extremities but not his legs. His deep tendon reflexes are globally diminished in the upper extremities and lost in the left knee. 4. His latest laboratory data on my initial evaluation revealed that he was anemic with a hemoglobin of 8.9. His arterial blood gas revealed a pH of 7.31 with a pCO2 of 52.3 and a pO2 of 67.6. His chemistry panel revealed a sodium elevated to 153, chloride elevated to 115, BUN elevated to 72, creatinine elevated to 3.0, blood glucose elevated to 189. His CRP was elevated to 21.3 and his proBNP was elevated to 6090. He was also significantly hypoalbuminemic with an albumin of 1.9. 5. The EEG done on 06/30/16 revealed a moderate encephalopathy but no focal slowing or inter-ictal phenomena. 6. The patient's history, neurological examination, and laboratory data are most compatible with a single seizure the description of which is unavailable to us. The etiology for the seizure is unclear but there is a high probability that it was a seizure symptomatic of a toxic metabolic insult. He continues to be seizure free at this time. 7. His encephalopathy is still waxing and waning, and is better today. Recommendations 1. Continue present management. 2. Correct toxic/metabolic imbalances. 3. No indication to start antiseizure medicine. 4. Observe closely. 5. Mobilize. 6. Keep room bright during the day and minimize overstimulation. Gustavo Padilla M.D., M.S.[facility]. GUSTAVO PADILLA Jul 06, 2016 21:41
[2016-07-07 00:09] VITALS: BP 107/70
[2016-07-07 04:00] VITALS: BP 143/77
[2016-07-07] MEDS: NovoLOG Insulin Flexpen SUBQ SCH ×4 (06:05→23:58)
[2016-07-07 07:25] LABS: BASOPHILS % (AUTO) 0.7 % (0.0-2.0); EOSINOPHILS % (AUTO) 4.7 % (0.0-3.0); LYMPHOCYTES % (AUTO) 17.8 % (20.0-45.0); MEAN CORPUSCULAR HGB CONC 30.1 G/DL (32.0-36.0); MEAN CORPUSCULAR VOLUME 96 FL (80-99); MEAN PLATELET VOLUME 5.6 FL (6.5-10.1); MONOCYTES % (AUTO) 8.2 % (1.0-10.0); NEUTROPHILS % (AUTO) 68.6 % (45.0-75.0); PLATELET COUNT 429 K/UL (150-450); RED BLOOD COUNT 3.14 M/UL (4.70-6.10); RED CELL DISTRIBUTION WIDTH 15.2 % (11.6-14.8); WHITE BLOOD COUNT 7.2 K/UL (4.8-10.8)
[2016-07-07 07:53] LABS: ALANINE AMINOTRANSFERASE 10 U/L (3-41); ALBUMIN/GLOBULIN RATIO 0.8 (1.0-2.7); ANION GAP 17 (5-15); ASPARTATE AMINO TRANSFERASE 16 U/L (5-40); CALCIUM 8.3 mg/dL (8.6-10.2); CARBON DIOXIDE 23 mEQ/L (20-30); CHLORIDE 106 mEQ/L (98-107); CREATININE 2.7 mg/dL (0.7-1.2); CRP QUANT 17.3 mg/dL (< 0.5); HEMOLYSIS 3; MAGNESIUM 1.8 mg/dL (1.7-2.5); PHOSPHORUS 4.1 mg/dL (2.5-4.8); POTASSIUM 4.4 mEQ/L (3.4-4.9); SODIUM 146 mEQ/L (135-145); TOTAL PROTEIN 5.4 g/dL (6.6-8.7)
[2016-07-07 08:03] VITALS: BP 116/63
[2016-07-07] MEDS: Mycophenolate 250mg cap GT SCH ×3 (08:12→19:58)
[2016-07-07] MEDS: Pantoprazole Inj IVP SCH ×3 (08:12→12:42)
[2016-07-07] MEDS: Docusate 100mg tablet NG SCH ×4 (08:12→19:56)
[2016-07-07] MEDS: Lactobacillus-GG tablet GT SCH ×4 (08:12→19:56)
[2016-07-07] MEDS: Dakin's 0.5% (Full Strength) 16oz TOPIC SCH (08:13)
[2016-07-07] MEDS: Vitamin A&D Oint 2oz Tube TOPIC SCH ×2 (08:13→21:50)
[2016-07-07] MEDS: Meropenem 500 MG in NS 110 ML IVPB SCH ×3 (08:13→21:51)
--- NOTE | 2016-07-07 10:33 | General Progress Note ---
Assessment/Plan Status: unchanged Status Narrative Cr stable Assessment/Plan status: Acute Renal Failure on Chronic renal failure - Cr stable Acute respiratory failure- septic shock , metabolic acidosis resolved Superimposed on CRI due to DM / HTN PVD s/p amputation- Severe Anemia s/p Heart transplant sacral decub plan: extubated 07/01 Mag supplement as needed transfused watch CHF Sxs wound care- monitor renal parameters- optimize cardiac and pulm status- wean as possible. avoid nephrotoxics per ID and cardiology discussed with RN Subjective ROS Limited/Unobtainable: No Constitutional: Reports: malaise, weakness Allergies: Coded Allergies: ADHESIVE TAPE (Verified Allergy, Unknown, Rash, 05/27/16) PLASTIC TAPE-COPIED FROM UNCODED SECTION PENICILLINS (Verified Allergy, Unknown, 06/20/16) PROCAINE (Verified Allergy, Unknown, Rash, 08/19/14) COPIED FRON UNCODED Objective Last 24 Hour Vital Signs Date Time Temp Pulse Resp B/P Pulse Ox O2 Delivery O2 Flow Rate FiO2 07/07/16 08:03 97.9 89 20 116/63 95 Nasal Cannula 4.0 07/07/16 08:00 91 07/07/16 07:01 Nasal Cannula 4.0 36 07/07/16 07:00 98 Nasal Cannula 4.0 36 07/07/16 04:00 98.2 92 20 143/77 94 Room Air 07/07/16 04:00 87 07/07/16 00:09 97.2 90 18 107/70 97 Nasal Cannula 4.0 07/07/16 00:00 90 07/06/16 20:00 91 07/06/16 20:00 97.0 95 21 140/63 97 Room Air 07/06/16 17:10 Nasal Cannula 4.0 36 07/06/16 17:10 96 Nasal Cannula 4.0 36 07/06/16 16:00 96 07/06/16 16:00 96.7 96 20 143/63 96 Room Air 07/06/16 12:00 95 07/06/16 11:36 99.0 95 20 127/67 96 Nasal Cannula 4.0 Intake and Output 07/06/16 07/07/16 19:00 07:00 Intake Total 1060 ml 300 ml Output Total 900 ml 900 ml Balance 160 ml -600 ml Intake Oral 840 ml 300 ml IV Total 220 ml Output Urine Total 900 ml 900 ml Laboratory Tests 07/07/16 05:30: White Blood Count 7.2, Red Blood Count 3.14L, Hemoglobin 9.1L, Hematocrit 30.3L , Mean Corpuscular Volume 96, Mean Corpuscular Hemoglobin 29.0, Mean Corpuscular Hemoglobin Concent 30.1L, Red Cell Distribution Width 15.2H, Platelet Count 429, Mean Platelet Volume 5.6L, Neutrophils (%) (Auto) 68.6, Lymphocytes (%) (Auto) 17.8L, Monocytes (%) (Auto) 8.2, Eosinophils (%) (Auto) 4.7H, Basophils (%) (Auto) 0.7, Sodium Level 146H, Potassium Level 4.4, Chloride Level 106, Carbon Dioxide Level 23, Anion Gap 17H, Blood Urea Nitrogen 56H, Creatinine 2.7H, Estimat Glomerular Filtration Rate , Glucose Level 136H, Uric Acid 6.0, Calcium Level 8.3L, Phosphorus Level 4.1, Magnesium Level 1.8, Total Bilirubin 0.3, Gamma Glutamyl Transpeptidase 15, Aspartate Amino Transf ( AST/SGOT) 16, Alanine Aminotransferase (ALT/SGPT) 10, Alkaline Phosphatase 82, Total Creatine Kinase 24L, C-Reactive Protein, Quantitative 17.3H, Pro-B-Type Natriuretic Peptide 2393H, Total Protein 5.4L, Albumin 2.4L, Globulin 3.0, Albumin/Globulin Ratio 0.8L Height (Feet): 5 Height (Inches): 8.00 Weight (Pounds): 193 General Appearance: no apparent distress Cardiovascular: tachycardia Respiratory/Chest: decreased breath sounds Abdomen: soft Objective no other changes in PE BRIJESH CALDERON Jul 07, 2016 10:33
--- NOTE | 2016-07-07 10:48 | Diagnostic Imaging Report ---
Indication: Dysphasia Procedure and findings: Real-time fluoroscopic imaging performed in a lateral projection in conjunction with the speech pathologist evaluation. Variable consistencies of barium given per mouth. Findings: Significant abnormalities of both oral and pharyngeal phases of swallowing are demonstrated. Total fluoroscopic time 195 seconds. No definite aspiration identified. Penetration noted with both thin and nectar Abnormal video swallow. Please refer to speech pathology evaluation for more information.
[2016-07-07] MEDS: Micafungin 100 MG in NS 110 ML IVPB SCH ×2 (11:00→13:03)
--- NOTE | 2016-07-07 12:57 | Pulmonology Progress Note ---
Assessment/Plan Problems: (1) Sepsis (2) Severe anemia (3) Acute encephalopathy (4) ATN (acute tubular necrosis) (5) History of heart transplant (6) Decubitus skin ulcer Assessment/Plan check h/h wbc wnl doing better dc planning to IV antibiotics check cultures check electrolytes wound care on cubicine and daptomycine will order venous doppler of left arm Subjective ROS Limited/Unobtainable: No Interval Events: c/o left arm swelling Allergies: Coded Allergies: ADHESIVE TAPE (Verified Allergy, Unknown, Rash, 05/27/16) PLASTIC TAPE-COPIED FROM UNCODED SECTION PENICILLINS (Verified Allergy, Unknown, 06/20/16) PROCAINE (Verified Allergy, Unknown, Rash, 08/19/14) COPIED FRON UNCODED Objective Last 24 Hour Vital Signs Date Time Temp Pulse Resp B/P Pulse Ox O2 Delivery O2 Flow Rate FiO2 07/07/16 08:03 97.9 89 20 116/63 95 Nasal Cannula 4.0 07/07/16 08:00 91 07/07/16 07:01 Nasal Cannula 4.0 36 07/07/16 07:00 98 Nasal Cannula 4.0 36 07/07/16 04:00 98.2 92 20 143/77 94 Room Air 07/07/16 04:00 87 07/07/16 00:09 97.2 90 18 107/70 97 Nasal Cannula 4.0 07/07/16 00:00 90 07/06/16 20:00 91 07/06/16 20:00 97.0 95 21 140/63 97 Room Air 07/06/16 17:10 Nasal Cannula 4.0 36 07/06/16 17:10 96 Nasal Cannula 4.0 36 07/06/16 16:00 96 07/06/16 16:00 96.7 96 20 143/63 96 Room Air Intake and Output 07/06/16 07/07/16 19:00 07:00 Intake Total 1060 ml 300 ml Output Total 900 ml 900 ml Balance 160 ml -600 ml Intake Oral 840 ml 300 ml IV Total 220 ml Output Urine Total 900 ml 900 ml Objective General Appearance: WD/WN Respiratory/Chest: chest wall non-tender, lungs clear Cardiovascular: normal peripheral pulses, normal rate Abdomen: normal bowel sounds, no organomegaly Skin: no rash Lymphatic: no neck adenopathy, no groin adenopathy Musculoskeletal: no effusion, left arm swelling Laboratory Tests 07/07/16 05:30: White Blood Count 7.2, Red Blood Count 3.14L, Hemoglobin 9.1L, Hematocrit 30.3L , Mean Corpuscular Volume 96, Mean Corpuscular Hemoglobin 29.0, Mean Corpuscular Hemoglobin Concent 30.1L, Red Cell Distribution Width 15.2H, Platelet Count 429, Mean Platelet Volume 5.6L, Neutrophils (%) (Auto) 68.6, Lymphocytes (%) (Auto) 17.8L, Monocytes (%) (Auto) 8.2, Eosinophils (%) (Auto) 4.7H, Basophils (%) (Auto) 0.7, Sodium Level 146H, Potassium Level 4.4, Chloride Level 106, Carbon Dioxide Level 23, Anion Gap 17H, Blood Urea Nitrogen 56H, Creatinine 2.7H, Estimat Glomerular Filtration Rate , Glucose Level 136H, Uric Acid 6.0, Calcium Level 8.3L, Phosphorus Level 4.1, Magnesium Level 1.8, Total Bilirubin 0.3, Gamma Glutamyl Transpeptidase 15, Aspartate Amino Transf ( AST/SGOT) 16, Alanine Aminotransferase (ALT/SGPT) 10, Alkaline Phosphatase 82, Total Creatine Kinase 24L, C-Reactive Protein, Quantitative 17.3H, Pro-B-Type Natriuretic Peptide 2393H, Total Protein 5.4L, Albumin 2.4L, Globulin 3.0, Albumin/Globulin Ratio 0.8L Current Medications Medications (Trade) Dose Ordered Sig/Koffi Route PRN Reason Start Time Stop Time Status Last Admin Dose Admin Acetaminophen (Tylenol) 650 mg Q4H PRN ORAL T>100.5 07/03/16 14:30 08/02/16 14:29 Acetaminophen/ Hydrocodone Bitart ([place] 5/325) 1 tab Q4H PRN GT Moderate Pain (Pain Scale 4-6) 07/03/16 14:45 07/10/16 14:44 Albuterol/ Ipratropium (DuoNeb 0.5-3(2.5)mg/3ml) 3 ml Q4H PRN HHN Shortness of Breath 07/04/16 16:30 07/09/16 16:29 Bisacodyl (Dulcolax) 10 mg DAILYPRN PRN RECTAL Constipation 2nd line 2/19/17 10:45 08/03/16 10:44 Clopidogrel Bisulfate (Plavix) 75 mg DAILY GT 07/04/16 09:00 08/03/16 08:59 07/06/16 09:12 Collagenase (Santyl) 1 applic DAILY TOPIC 07/04/16 09:00 08/03/16 08:59 07/07/16 08:13 Daptomycin 500 mg/ Sodium Chloride 55 ml @ 110 mls/hr Q48H IV 07/03/16 19:00 07/10/16 18:59 07/05/16 18:34 Dextrose (Dextrose 50%) STAT PRN IV Hypoglycemia 07/03/16 14:30 08/02/16 14:29 Docusate Sodium (Colace) 100 mg TID NG 07/03/16 18:00 08/02/16 17:59 07/07/16 12:37 Epoetin Mars (Procrit (for non ESRD use)) 7,000 units TUE-TUE-TUE SUBQ 07/05/16 21:00 08/04/16 20:59 07/05/16 21:09 Furosemide (Lasix) 40 mg DAILY IV 07/04/16 09:00 08/03/16 08:59 07/07/16 12:41 Insulin Aspart (NovoLOG) EVERY 6 HOURS SUBQ 07/03/16 18:00 08/02/16 17:59 07/07/16 06:05 Lactobacillus Acidophilus (Culturelle) 1 tab THREE TIMES A DAY GT 07/03/16 18:00 08/02/16 17:59 07/07/16 12:37 Lorazepam (Ativan 2mg/ml 1ml) 0.5 mg Q4H PRN IV For Anxiety 07/03/16 14:45 07/10/16 14:44 07/04/16 09:37 Meropenem 500 mg/ Sodium Chloride 110 ml @ 220 mls/hr Q12HR IVPB 07/03/16 21:00 07/12/16 20:59 07/06/16 20:40 Micafungin Sodium/ Sodium Chloride (Mycamine/Sodium Chloride) 110 ml @ 110 mls/hr Q24H IVPB 07/04/16 11:00 07/11/16 10:59 07/06/16 11:00 Mineral Oil (Fleet's Mineral Oil Enema) 133 ml DAILYPRN PRN RECTAL Constipation 3rd Line 07/03/16 14:30 08/02/16 14:29 Mycophenolate Mofetil (Cellcept) 500 mg TWICE A DAY GT 07/03/16 18:00 08/02/16 17:59 07/06/16 17:44 Ondansetron HCl (Zofran) 4 mg Q6H PRN IVP Nausea & Vomiting 07/03/16 14:30 08/02/16 14:29 Pantoprazole (Protonix) 40 mg DAILY IVP 07/04/16 09:00 08/03/16 08:59 07/07/16 12:42 Polyethylene Glycol (Miralax) 17 gm DAILYPRN PRN GT Constipation 07/04/16 14:30 08/03/16 14:29 Sodium Hypochlorite (Dakin's Full Strength) 1 applic DAILY TOPIC 07/04/16 09:00 08/03/16 08:59 07/07/16 08:13 Tacrolimus (Prograf) 0.5 mg Q12HR@0800 ORAL 07/06/16 20:00 08/05/16 19:59 07/07/16 12:43 Tacrolimus (Prograf) 1 mg Q12HR@0800,1999 ORAL 07/06/16 20:00 08/05/16 19:59 07/07/16 12:41 Valacyclovir HCl (Valtrex) 500 mg EVERY 12 HOURS NG 07/03/16 21:00 08/02/16 20:59 07/07/16 12:40 Vitamin A/Vitamin D (A & D Oint) 1 applic EVERY 12 HOURS TOPIC 07/03/16 21:00 08/02/16 20:59 07/07/16 08:13 Zolpidem Tartrate (Ambien) 5 mg HSPRN PRN GT Insomnia 07/03/16 21:00 08/02/16 20:59 AMADO SCHULER Jul 07, 2016 12:57
[2016-07-07] MEDS ORDERED: Fleet's Mineral Oil Enema RECTAL PRN (14:30)
[2016-07-07] MEDS ORDERED: Miralax 17gm pkt GT PRN (14:30)
[2016-07-07] MEDS ORDERED: LORazepam Inj 2mg/ml 1ml IV PRN (14:45)
[2016-07-07] MEDS ORDERED: Norco 5mg/325mg tab GT PRN (14:45)
[2016-07-07 16:00] VITALS: BP 129/45
[2016-07-07] MEDS ORDERED: DuoNeb 0.5-3(2.5)mg/3ml neb HHN PRN (16:30)
--- NOTE | 2016-07-07 18:04 | Infectious Diseases Prog Note ---
Assessment/Plan Problems: (1) Sepsis Assessment & Plan: continue daptomycin(day 18) for 4 weeks ,meropenem (day 19 ) for 6 weeks , and micafungin (day11) for 2 weeks , repeated blood culture remained negative , and sputum culture grew junaid albicans only which is most likely colonization and not real. will continue current regimen for now . 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 continue local wound care , and off loading. (4) Anemia Assessment & Plan: S/P blood transfusion, monitor H&H, need to rule out GI source. (5) PVD (peripheral vascular disease) Assessment & Plan: S/P B/L AKA. (6) CKD (chronic kidney disease) Assessment & Plan: avoid nephrotoxic meds, monitor UOP, and renal function, renal is following (7) Heart transplant status Assessment & Plan: recommend to communicate with his heart transplant team at [place] for further recommendation, and possible transfer to [place] for higher level of care, continue transplant meds , and adjust as per his GFR. 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, on valacyclovir renally dosed for 10 days Subjective Constitutional: Reports: fatigue Gastrointestinal/Abdominal: Reports: bloating, constipation Neurologic: Reports: weakness Psychiatric: Reports: depression Skin: Reports: ulcer Allergies: Coded Allergies: ADHESIVE TAPE (Verified Allergy, Unknown, Rash, 05/27/16) PLASTIC TAPE-COPIED FROM UNCODED SECTION PENICILLINS (Verified Allergy, Unknown, 06/20/16) PROCAINE (Verified Allergy, Unknown, Rash, 08/19/14) COPIED FRON UNCODED Subjective he was awake and coherent, up in bed, no fever or chills, no diarrhea, sating well on nasal canula Objective Vital Signs Last 24 Hour Vital Signs Date Time Temp Pulse Resp B/P Pulse Ox O2 Delivery O2 Flow Rate FiO2 07/07/16 16:00 99.1 98 20 129/45 96 Room Air 07/07/16 12:00 93 07/07/16 08:03 97.9 89 20 116/63 95 Nasal Cannula 4.0 07/07/16 08:00 91 07/07/16 07:01 Nasal Cannula 4.0 36 07/07/16 07:00 98 Nasal Cannula 4.0 36 07/07/16 04:00 98.2 92 20 143/77 94 Room Air 07/07/16 04:00 87 07/07/16 00:09 97.2 90 18 107/70 97 Nasal Cannula 4.0 07/07/16 00:00 90 07/06/16 20:00 91 07/06/16 20:00 97.0 95 21 140/63 97 Room Air Height (Feet): 5 Height (Inches): 8.00 Weight (Pounds): 193 General Appearance: WD/WN, no acute distress HEENT: normocephalic, atraumatic, anicteric Respiratory/Chest: chest wall non-tender, lungs clear, normal breath sounds, no respiratory distress, no accessory muscle use Cardiovascular: normal peripheral pulses, normal rate, regular rhythm, no gallop/murmur Abdomen: normal bowel sounds, soft, non tender, no organomegaly, no mass, no scars, distended Extremities: no cyanosis Skin: no rash, no lesions, ulcers - large sacral decubitus wound stage IV with good granulation Laboratory Tests Test 07/07/16 05:30 White Blood Count 7.2 K/UL (4.8-10.8) Red Blood Count 3.14 M/UL (4.70-6.10) L Hemoglobin 9.1 G/DL (14.2-18.0) L Hematocrit 30.3 % (42.0-52.0) L Mean Corpuscular Volume 96 FL (80-99) Mean Corpuscular Hemoglobin 29.0 PG (27.0-31.0) Mean Corpuscular Hemoglobin Concent 30.1 G/DL (32.0-36.0) L Red Cell Distribution Width 15.2 % (11.6-14.8) H Platelet Count 429 K/UL (150-450) Mean Platelet Volume 5.6 FL (6.5-10.1) L Neutrophils (%) (Auto) 68.6 % (45.0-75.0) Lymphocytes (%) (Auto) 17.8 % (20.0-45.0) L Monocytes (%) (Auto) 8.2 % (1.0-10.0) Eosinophils (%) (Auto) 4.7 % (0.0-3.0) H Basophils (%) (Auto) 0.7 % (0.0-2.0) Sodium Level 146 mEQ/L (135-145) H Potassium Level 4.4 mEQ/L (3.4-4.9) Chloride Level 106 mEQ/L (98-107) Carbon Dioxide Level 23 mEQ/L (20-30) Anion Gap 17 (5-15) H Blood Urea Nitrogen 56 mg/dL (7-23) H Creatinine 2.7 mg/dL (0.7-1.2) H Estimat Glomerular Filtration Rate mL/min (>60) Glucose Level 136 mg/dL (74-106) H Uric Acid 6.0 mg/dL (3.0-7.5) Calcium Level 8.3 mg/dL (8.6-10.2) L Phosphorus Level 4.1 mg/dL (2.5-4.8) Magnesium Level 1.8 mg/dL (1.7-2.5) Total Bilirubin 0.3 mg/dL (0.0-1.2) Gamma Glutamyl Transpeptidase 15 U/L (8-61) Aspartate Amino Transf (AST/SGOT) 16 U/L (5-40) Alanine Aminotransferase (ALT/SGPT) 10 U/L (3-41) Alkaline Phosphatase 82 U/L (40-129) Total Creatine Kinase 24 U/L (38-174) L C-Reactive Protein, Quantitative 17.3 mg/dL (< 0.5) H Pro-B-Type Natriuretic Peptide 2393 pg/mL (0-450) H Total Protein 5.4 g/dL (6.6-8.7) L Albumin 2.4 g/dL (3.5-5.2) L Globulin 3.0 g/dL Albumin/Globulin Ratio 0.8 (1.0-2.7) L Current Medications Medications (Trade) Dose Ordered Sig/Koffi Route PRN Reason Start Time Stop Time Status Last Admin Dose Admin Acetaminophen (Tylenol) 650 mg Q4H PRN ORAL T>100.5 07/07/16 18:30 08/06/16 18:29 Acetaminophen/ Hydrocodone Bitart ([place] 5/325) 1 tab Q4H PRN GT Moderate Pain (Pain Scale 4-6) 07/07/16 14:45 07/14/16 14:44 Albuterol/ Ipratropium (DuoNeb 0.5-3(2.5)mg/3ml) 3 ml Q4H PRN HHN Shortness of Breath 07/07/16 16:30 07/12/16 16:29 Bisacodyl (Dulcolax) 10 mg DAILYPRN PRN RECTAL Constipation 2nd line 07/08/16 10:45 08/07/16 10:44 Clopidogrel Bisulfate (Plavix) 75 mg DAILY GT 07/08/16 09:00 08/07/16 08:59 Collagenase (Santyl) 1 applic DAILY TOPIC 07/08/16 09:00 08/07/16 08:59 Daptomycin 500 mg/ Sodium Chloride 55 ml @ 110 mls/hr Q48H IV 07/07/16 19:00 07/14/16 18:59 Dextrose (Dextrose 50%) STAT PRN IV Hypoglycemia 07/08/16 14:30 08/07/16 14:29 Docusate Sodium (Colace) 100 mg TID NG 07/07/16 18:00 08/06/16 17:59 Epoetin Mars (Procrit (for non ESRD use)) 7,000 units TUE-TUE-TUE SUBQ 07/07/16 21:00 08/06/16 20:59 Furosemide (Lasix) 40 mg DAILY IV 07/08/16 09:00 08/07/16 08:59 Insulin Aspart (NovoLOG) EVERY 6 HOURS SUBQ 07/07/16 18:00 08/06/16 17:59 Lactobacillus Acidophilus (Culturelle) 1 tab THREE TIMES A DAY GT 07/07/16 18:00 08/06/16 17:59 Lorazepam (Ativan 2mg/ml 1ml) 0.5 mg Q4H PRN IV For Anxiety 07/07/16 14:45 07/14/16 14:44 Meropenem 500 mg/ Sodium Chloride 110 ml @ 220 mls/hr Q12HR IVPB 07/07/16 21:00 07/12/16 20:59 Micafungin Sodium/ Sodium Chloride (Mycamine/Sodium Chloride) 110 ml @ 110 mls/hr Q24H IVPB 07/08/16 11:00 07/15/16 10:59 Mineral Oil (Fleet's Mineral Oil Enema) 133 ml DAILYPRN PRN RECTAL Constipation 3rd Line 07/07/16 14:30 08/06/16 14:29 Mycophenolate Mofetil (Cellcept) 500 mg TWICE A DAY GT 07/07/16 18:00 08/06/16 17:59 Ondansetron HCl (Zofran) 4 mg Q6H PRN IVP Nausea & Vomiting 07/07/16 20:30 08/06/16 20:29 Pantoprazole (Protonix) 40 mg DAILY IVP 07/08/16 09:00 08/07/16 08:59 Polyethylene Glycol (Miralax) 17 gm DAILYPRN PRN GT Constipation 07/07/16 14:30 08/06/16 14:29 Sodium Hypochlorite (Dakin's Full Strength) 1 applic DAILY TOPIC 07/08/16 09:00 08/07/16 08:59 Tacrolimus (Prograf) 0.5 mg Q12HR@0800,1999 ORAL 07/07/16 20:00 08/06/16 19:59 Tacrolimus (Prograf) 1 mg Q12HR@0800,1999 ORAL 07/07/16 20:00 08/06/16 19:59 Valacyclovir HCl (Valtrex) 500 mg EVERY 12 HOURS NG 07/07/16 21:00 08/06/16 20:59 Vitamin A/Vitamin D (A & D Oint) 1 applic EVERY 12 HOURS TOPIC 07/07/16 21:00 08/06/16 20:59 Zolpidem Tartrate (Ambien) 5 mg HSPRN PRN GT Insomnia 07/07/16 21:00 08/06/16 20:59 Jose Mott M.D. Jul 07, 2016 18:04
--- NOTE | 2016-07-07 19:21 | General Progress Note ---
Assessment/Plan Status: progressing Assessment/Plan Overall he is more stable and his wounds are not worsening. Recommend continuing the dressing orders as prescribed, IV antibiotics, and nutritional support. No further debridement at this time is necessary. Subjective Date patient seen: Jul 07, 2016 Time patient seen: 19:18 Constitutional: Reports: no symptoms Allergies: Coded Allergies: ADHESIVE TAPE (Verified Allergy, Unknown, Rash, 05/27/16) PLASTIC TAPE-COPIED FROM UNCODED SECTION PENICILLINS (Verified Allergy, Unknown, 06/20/16) PROCAINE (Verified Allergy, Unknown, Rash, 08/19/14) COPIED FRON UNCODED Subjective Follow up evaluation on patient with multiple pressure ulcers of the trunk. Since he was last seen by me, patient has been transferred to regular floor.. His condition has continued to stabilize. He is currently afebrile with normal WBC. He is awake and alert. Objective Last 24 Hour Vital Signs Date Time Temp Pulse Resp B/P Pulse Ox O2 Delivery O2 Flow Rate FiO2 07/07/16 16:00 99.1 98 20 129/45 96 Room Air 07/07/16 12:00 93 07/07/16 08:03 97.9 89 20 116/63 95 Nasal Cannula 4.0 07/07/16 08:00 91 07/07/16 07:01 Nasal Cannula 4.0 36 07/07/16 07:00 98 Nasal Cannula 4.0 36 07/07/16 04:00 98.2 92 20 143/77 94 Room Air 07/07/16 04:00 87 07/07/16 00:09 97.2 90 18 107/70 97 Nasal Cannula 4.0 07/07/16 00:00 90 07/06/16 20:00 91 07/06/16 20:00 97.0 95 21 140/63 97 Room Air Intake and Output 07/06/16 07/07/16 19:00 07:00 Intake Total 1060 ml 300 ml Output Total 900 ml 900 ml Balance 160 ml -600 ml Intake Oral 840 ml 300 ml IV Total 220 ml Output Urine Total 900 ml 900 ml Laboratory Tests 07/07/16 05:30: White Blood Count 7.2, Red Blood Count 3.14L, Hemoglobin 9.1L, Hematocrit 30.3L , Mean Corpuscular Volume 96, Mean Corpuscular Hemoglobin 29.0, Mean Corpuscular Hemoglobin Concent 30.1L, Red Cell Distribution Width 15.2H, Platelet Count 429, Mean Platelet Volume 5.6L, Neutrophils (%) (Auto) 68.6, Lymphocytes (%) (Auto) 17.8L, Monocytes (%) (Auto) 8.2, Eosinophils (%) (Auto) 4.7H, Basophils (%) (Auto) 0.7, Sodium Level 146H, Potassium Level 4.4, Chloride Level 106, Carbon Dioxide Level 23, Anion Gap 17H, Blood Urea Nitrogen 56H, Creatinine 2.7H, Estimat Glomerular Filtration Rate , Glucose Level 136H, Uric Acid 6.0, Calcium Level 8.3L, Phosphorus Level 4.1, Magnesium Level 1.8, Total Bilirubin 0.3, Gamma Glutamyl Transpeptidase 15, Aspartate Amino Transf ( AST/SGOT) 16, Alanine Aminotransferase (ALT/SGPT) 10, Alkaline Phosphatase 82, Total Creatine Kinase 24L, C-Reactive Protein, Quantitative 17.3H, Pro-B-Type Natriuretic Peptide 2393H, Total Protein 5.4L, Albumin 2.4L, Globulin 3.0, Albumin/Globulin Ratio 0.8L Height (Feet): 5 Height (Inches): 8.00 Weight (Pounds): 193 General Appearance: no apparent distress Abdomen: non tender, soft Skin: other - Sacral ulcer looks improved at the base. No necrosis and no purulent drainage. Ischial ulcer with clean base. Periskin in fair condition. JOE MARTEL Jul 07, 2016 19:21
--- NOTE | 2016-07-07 19:39 | Neurology Progress Note ---
Interim History Interim History Interim History Mr. Ralph is awake and alert. The mind is clearer. He has had no further seizures or seizure-like phenomena. His behavior is better. He is still generally weak. He denies any new neurologic symptoms. Review of Systems Neuro Review of Systems Benign. Objective Physical Exam Last Vital Signs Date Time Temp Pulse Resp B/P Pulse Ox O2 Delivery O2 Flow Rate FiO2 07/07/16 16:00 99.1 98 20 129/45 96 Room Air 07/07/16 08:03 4.0 07/07/16 07:01 36 Laboratory Tests Test 07/07/16 05:30 White Blood Count 7.2 K/UL (4.8-10.8) Red Blood Count 3.14 M/UL (4.70-6.10) L Hemoglobin 9.1 G/DL (14.2-18.0) L Hematocrit 30.3 % (42.0-52.0) L Mean Corpuscular Volume 96 FL (80-99) Mean Corpuscular Hemoglobin 29.0 PG (27.0-31.0) Mean Corpuscular Hemoglobin Concent 30.1 G/DL (32.0-36.0) L Red Cell Distribution Width 15.2 % (11.6-14.8) H Platelet Count 429 K/UL (150-450) Mean Platelet Volume 5.6 FL (6.5-10.1) L Neutrophils (%) (Auto) 68.6 % (45.0-75.0) Lymphocytes (%) (Auto) 17.8 % (20.0-45.0) L Monocytes (%) (Auto) 8.2 % (1.0-10.0) Eosinophils (%) (Auto) 4.7 % (0.0-3.0) H Basophils (%) (Auto) 0.7 % (0.0-2.0) Sodium Level 146 mEQ/L (135-145) H Potassium Level 4.4 mEQ/L (3.4-4.9) Chloride Level 106 mEQ/L (98-107) Carbon Dioxide Level 23 mEQ/L (20-30) Anion Gap 17 (5-15) H Blood Urea Nitrogen 56 mg/dL (7-23) H Creatinine 2.7 mg/dL (0.7-1.2) H Estimat Glomerular Filtration Rate mL/min (>60) Glucose Level 136 mg/dL (74-106) H Uric Acid 6.0 mg/dL (3.0-7.5) Calcium Level 8.3 mg/dL (8.6-10.2) L Phosphorus Level 4.1 mg/dL (2.5-4.8) Magnesium Level 1.8 mg/dL (1.7-2.5) Total Bilirubin 0.3 mg/dL (0.0-1.2) Gamma Glutamyl Transpeptidase 15 U/L (8-61) Aspartate Amino Transf (AST/SGOT) 16 U/L (5-40) Alanine Aminotransferase (ALT/SGPT) 10 U/L (3-41) Alkaline Phosphatase 82 U/L (40-129) Total Creatine Kinase 24 U/L (38-174) L C-Reactive Protein, Quantitative 17.3 mg/dL (< 0.5) H Pro-B-Type Natriuretic Peptide 2393 pg/mL (0-450) H Total Protein 5.4 g/dL (6.6-8.7) L Albumin 2.4 g/dL (3.5-5.2) L Globulin 3.0 g/dL Albumin/Globulin Ratio 0.8 (1.0-2.7) L Neurologic Exam Objective PHYSICAL EXAMINATION: GENERAL: He is a well-developed, well-nourished, obese, gentleman, lying in bed. HEAD: Normocephalic and atraumatic. NECK: No neck rigidity was observed. EENT: Examination benign. NEUROLOGICAL EXMINATION: MENTAL STATUS EXMINATION: He was awake and alert. He was oriented to self and 2017 only. He could tell me who the present present was. He was unable to cooperate for further mental status testing. SPEECH: Normal. LANGUAGE: His comprehension and expression of language in [place]ian was stable. CRANIAL NERVE EXAMINATION II: His visual deleon were intact on confrontation testing. III, IV & : The external ocular movements were full and the pupils 3 mm in diameter equal round, regular, and reactive to sluggishly to light. V & VII: Corneal reflexes were brisk bilaterally. VIII: He was able to hear well and had no nystagmus. IX & X: The gag reflex was present. XI: Sternocleidomastoids and trapezii did function. XII: The tongue was in the midline.. MOTOR SYSTEM: The tone was normal in all four extremities. Examination of muscle mass revealed no focal wasting. 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 Examination of power revealed G 5/5 in both upper extremities and G 0/5 in the lower extremities. SENSORY EXAMINATION: He responded appropriately to light touch in all four extremities. REFLEXES: Trace+ and bilaterally symmetrical at the biceps, triceps, brachioradialis, 0 at the left knee. COORDINATION, STANCE & GAIT: Could not be tested. Impression/Recommendations Diagnostic Impression 1. Mr. Sherman Ralph is a 76-year-old, right-handed, gentleman, who does have a past history of hypertension, diabetes mellitus, coronary artery disease, ischemic cardiomyopathy, heart transplant, peripheral vascular disease with right [id number] amputation and left [id number] amputation , chronic kidney disease, and a sacral decubitus who was hospitalized on 2016 for severe anemia, worsening renal function, and severe hyperkalemia . It was felt that he was septic and had been in the intensive care unit for management of all his medical problems. On the morning of 06/29/2016 he was noted to have a seizure, the description of which is unavailable. 2. He has had no further seizures or seizure-like phenomena. He feels better. He is less confused and not agitated. 3. On neurological examination, at this time, he is awake and much more alert. He is better oriented. He moves his upper extremities but not his legs. His deep tendon reflexes are globally diminished in the upper extremities and lost in the left knee. 4. His latest laboratory data on my initial evaluation revealed that he was anemic with a hemoglobin of 8.9. His arterial blood gas revealed a pH of 7.31 with a pCO2 of 52.3 and a pO2 of 67.6. His chemistry panel revealed a sodium elevated to 153, chloride elevated to 115, BUN elevated to 72, creatinine elevated to 3.0, blood glucose elevated to 189. His CRP was elevated to 21.3 and his proBNP was elevated to 6090. He was also significantly hypoalbuminemic with an albumin of 1.9. 5. The EEG done on 06/30/16 revealed a moderate encephalopathy but no focal slowing or inter-ictal phenomena. 6. The patient's history, neurological examination, and laboratory data are most compatible with a single seizure the description of which is unavailable to us. The etiology for the seizure is unclear but there is a high probability that it was a seizure symptomatic of a toxic metabolic insult. He continues to be seizure free at this time. 7. His encephalopathy is still waxing and waning, but is generally better. Recommendations 1. Continue present management. 2. Correct toxic/metabolic imbalances. 3. No indication to start antiseizure medicine. 4. Observe closely. 5. Mobilize. 6. Keep room bright during the day and minimize overstimulation. Gustavo Padilla M.D., M.S.[facility]. GUSTAVO PADILLA Jul 07, 2016 19:39
[2016-07-07] MEDS: DAPTOmycin 500 MG in NS 55 ML IV SCH (19:57)
[2016-07-07 20:00] VITALS: BP 109/56
[2016-07-07] MEDS ORDERED: Zolpidem 5mg tab GT PRN (21:00)
--- NOTE | 2016-07-07 21:33 | Cardiology Progress Note ---
Assessment/Plan Assessment/Plan hyperkalemia due ro renal failure and over use of benicar (two time the upper limit of max does recommended) acute on chronic renal filure s/p heart tx dm with endorgan disease pvd obesity anemia htn acute reparatory failure and acidosis hypernatremia presumed pneumonia hypotension ?volume related tachy cardia ? volume related remain extubated Prograf level on07/03 was 3.4 received prbc tx a few lanre go would be tolerant of anemia since post transplant cr stabel echo ef 50-55% d/w rn bnp non diagnostic in light of renal insuf presume pneumonia on abx tele reviewed sinus same meds repeat [prograff level on duration 45 min Subjective ROS Limited/Unobtainable: Yes Subjective sleeping Objective Last 24 Hour Vital Signs Date Time Temp Pulse Resp B/P Pulse Ox O2 Delivery O2 Flow Rate FiO2 07/07/16 20:00 98.1 99 22 109/56 93 Room Air 07/07/16 16:00 99.1 98 20 129/45 96 Room Air 07/07/16 12:00 93 07/07/16 08:03 97.9 89 20 116/63 95 Nasal Cannula 4.0 07/07/16 08:00 91 07/07/16 07:01 Nasal Cannula 4.0 36 07/07/16 07:00 98 Nasal Cannula 4.0 36 07/07/16 04:00 98.2 92 20 143/77 94 Room Air 07/07/16 04:00 87 07/07/16 00:09 97.2 90 18 107/70 97 Nasal Cannula 4.0 07/07/16 00:00 90 General Appearance: no apparent distress, alert, other - snorign Intake and Output 07/06/16 07/07/16 19:00 07:00 Intake Total 1060 ml 300 ml Output Total 900 ml 900 ml Balance 160 ml -600 ml Intake Oral 840 ml 300 ml IV Total 220 ml Output Urine Total 900 ml 900 ml Laboratory Tests Test 07/07/16 05:30 White Blood Count 7.2 K/UL (4.8-10.8) Red Blood Count 3.14 M/UL (4.70-6.10) L Hemoglobin 9.1 G/DL (14.2-18.0) L Hematocrit 30.3 % (42.0-52.0) L Mean Corpuscular Volume 96 FL (80-99) Mean Corpuscular Hemoglobin 29.0 PG (27.0-31.0) Mean Corpuscular Hemoglobin Concent 30.1 G/DL (32.0-36.0) L Red Cell Distribution Width 15.2 % (11.6-14.8) H Platelet Count 429 K/UL (150-450) Mean Platelet Volume 5.6 FL (6.5-10.1) L Neutrophils (%) (Auto) 68.6 % (45.0-75.0) Lymphocytes (%) (Auto) 17.8 % (20.0-45.0) L Monocytes (%) (Auto) 8.2 % (1.0-10.0) Eosinophils (%) (Auto) 4.7 % (0.0-3.0) H Basophils (%) (Auto) 0.7 % (0.0-2.0) Sodium Level 146 mEQ/L (135-145) H Potassium Level 4.4 mEQ/L (3.4-4.9) Chloride Level 106 mEQ/L (98-107) Carbon Dioxide Level 23 mEQ/L (20-30) Anion Gap 17 (5-15) H Blood Urea Nitrogen 56 mg/dL (7-23) H Creatinine 2.7 mg/dL (0.7-1.2) H Estimat Glomerular Filtration Rate mL/min (>60) Glucose Level 136 mg/dL (74-106) H Uric Acid 6.0 mg/dL (3.0-7.5) Calcium Level 8.3 mg/dL (8.6-10.2) L Phosphorus Level 4.1 mg/dL (2.5-4.8) Magnesium Level 1.8 mg/dL (1.7-2.5) Total Bilirubin 0.3 mg/dL (0.0-1.2) Gamma Glutamyl Transpeptidase 15 U/L (8-61) Aspartate Amino Transf (AST/SGOT) 16 U/L (5-40) Alanine Aminotransferase (ALT/SGPT) 10 U/L (3-41) Alkaline Phosphatase 82 U/L (40-129) Total Creatine Kinase 24 U/L (38-174) L C-Reactive Protein, Quantitative 17.3 mg/dL (< 0.5) H Pro-B-Type Natriuretic Peptide 2393 pg/mL (0-450) H Total Protein 5.4 g/dL (6.6-8.7) L Albumin 2.4 g/dL (3.5-5.2) L Globulin 3.0 g/dL Albumin/Globulin Ratio 0.8 (1.0-2.7) L HAILEE PATEL Jul 07, 2016 21:32
[2016-07-07] MEDS: Epogen (for non ESRD use) SUBQ SCH (21:54)
[2016-07-08] VITALS: BP 139/62
[2016-07-08 04:00] VITALS: BP 153/73
[2016-07-08] MEDS: NovoLOG Insulin Flexpen SUBQ SCH ×3 (05:49→18:11)
[2016-07-08 08:18] VITALS: BP 158/73
[2016-07-08] MEDS: Mycophenolate 250mg cap GT SCH ×2 (08:41→18:09)
[2016-07-08] MEDS: Docusate 100mg tablet NG SCH ×3 (08:42→18:09)
[2016-07-08] MEDS: Lactobacillus-GG tablet GT SCH ×3 (08:47→18:09)
[2016-07-08] MEDS: Pantoprazole Inj IVP SCH (08:47)
[2016-07-08] MEDS: Vitamin A&D Oint 2oz Tube TOPIC SCH ×2 (09:00→20:37)
[2016-07-08] MEDS ORDERED: Dakin's 0.5% (Full Strength) 16oz TOPIC SCH ×2 (09:00→16:30)
[2016-07-08] MEDS: Meropenem 500 MG in NS 110 ML IVPB SCH ×2 (09:25→20:36)
--- NOTE | 2016-07-08 09:44 | General Progress Note ---
Assessment/Plan Status: unchanged Assessment/Plan status: Acute Renal Failure on Chronic renal failure - Cr stable Acute respiratory failure- septic shock , metabolic acidosis resolved Superimposed on CRI due to DM / HTN PVD s/p amputation- Severe Anemia s/p Heart transplant sacral decub plan: no labs today- extubated 07/01 Mag supplement as needed transfused watch CHF Sxs wound care- monitor renal parameters- optimize cardiac and pulm status- wean as possible. avoid nephrotoxics per ID and cardiology discussed with RN Subjective ROS Limited/Unobtainable: No Allergies: Coded Allergies: ADHESIVE TAPE (Verified Allergy, Unknown, Rash, 05/27/16) PLASTIC TAPE-COPIED FROM UNCODED SECTION PENICILLINS (Verified Allergy, Unknown, 06/20/16) PROCAINE (Verified Allergy, Unknown, Rash, 08/19/14) COPIED FRON UNCODED Objective Last 24 Hour Vital Signs Date Time Temp Pulse Resp B/P Pulse Ox O2 Delivery O2 Flow Rate FiO2 07/08/16 08:18 97.8 95 20 158/73 97 Room Air 07/08/16 07:40 Room Air 07/08/16 07:40 98 Room Air 07/08/16 04:00 98.8 92 20 153/73 94 Room Air 07/08/16 00:00 97.9 97 20 139/62 94 Room Air 07/07/16 20:00 98.1 99 22 109/56 93 Room Air 07/07/16 19:30 Room Air 07/07/16 19:30 93 Room Air 07/07/16 16:00 99.1 98 20 129/45 96 Room Air 07/07/16 12:00 93 Intake and Output 07/07/16 07/08/16 19:00 07:00 Intake Total 470 ml 405 ml Output Total 300 ml 1025 ml Balance 170 ml -620 ml Intake Oral 360 ml 240 ml IV Total 110 ml 165 ml Output Urine Total 300 ml 1025 ml # Bowel Movements 1 Height (Feet): 5 Height (Inches): 8.00 Weight (Pounds): 193 General Appearance: no apparent distress Cardiovascular: tachycardia Respiratory/Chest: decreased breath sounds Objective no other changes in PE BRIJESH CALDERON Jul 08, 2016 09:44
[2016-07-08 12:04] VITALS: BP 153/75
--- NOTE | 2016-07-08 12:10 | Diagnostic Imaging Report ---
APPROVED REPORT CPT Code: 46650 Present Symptoms Upper Extremity Edema: Left Comments: Prior DVT: 06/25/2016 Risk Factors Prior Phlebitis/DVT 2D Evaluation LEFT UPPER EXTREMITY: Imaging reveals partially occlusive acute thrombus in the subclavian, axillary and proximal brachial veins at upper arm level. Imaging also reveals patency of the internal jugular and distal brachial veins. The cephalic vein is thrombosed. The basilic vein is within normal limits. LYUBOV Nair was informed at 1135 hours.
[2016-07-08] MEDS: Micafungin 100 MG in NS 110 ML IVPB SCH (12:15)
--- NOTE | 2016-07-08 15:12 | Infectious Diseases Prog Note ---
Assessment/Plan Problems: (1) Sepsis Assessment & Plan: continue daptomycin(day 19) for 4 weeks ,meropenem (day 20 ) for 6 weeks , and micafungin (day12) for 2 weeks , repeated blood culture remained negative , and sputum culture grew junaid albicans only which is most likely colonization and not real. will continue current regimen for the duration outlined. 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 continue local wound care , and off loading. (4) Anemia Assessment & Plan: S/P blood transfusion, monitor H&H, need to rule out GI source. (5) PVD (peripheral vascular disease) Assessment & Plan: S/P B/L AKA. (6) CKD (chronic kidney disease) Assessment & Plan: avoid nephrotoxic meds, monitor UOP, and renal function, renal is following (7) Heart transplant status Assessment & Plan: recommend to communicate with his heart transplant team at [facility] for further recommendation, and possible transfer to [facility] for higher level of care, continue transplant meds , and adjust as per his GFR. 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, on valacyclovir renally dosed for 10 days total (9) DVT of axillary vein, acute left Assessment & Plan: recommend anticoagulation as per primary and HEM consult Subjective Constitutional: Denies: anorexia, chills, drenching sweats, fatigue, fever, no symptoms, other HEENT: Denies: congestion, coryza, dysphagia, hearing change, no symptoms, other, visual change Respiratory: Denies: dry cough, no symptoms, other, productive cough, shortness of breath Cardiovascular: Denies: chest pain, dyspnea on exertion, no symptoms, other, palpitations Gastrointestinal/Abdominal: Denies: bloating, blood in stool, constipation, diarrhea, nausea, no symptoms, other, vomiting Genitourinary: Denies: dysuria, frequency, hematuria, no symptoms, nocturia, other Neurologic: Reports: weakness Psychiatric: Reports: anxiety Skin: Reports: ulcer Allergies: Coded Allergies: ADHESIVE TAPE (Verified Allergy, Unknown, Rash, 05/27/16) PLASTIC TAPE-COPIED FROM UNCODED SECTION PENICILLINS (Verified Allergy, Unknown, 06/20/16) PROCAINE (Verified Allergy, Unknown, Rash, 08/19/14) COPIED FRON UNCODED Subjective he was doing well, up in bed, resting, denied any fever or chills, no diarrhea , sating well on room air Objective Vital Signs Last 24 Hour Vital Signs Date Time Temp Pulse Resp B/P Pulse Ox O2 Delivery O2 Flow Rate FiO2 07/08/16 12:04 98.2 93 18 153/75 97 Room Air 07/08/16 09:45 97.8 07/08/16 08:18 97.8 95 20 158/73 97 Room Air 07/08/16 07:40 Room Air 07/08/16 07:40 98 Room Air 07/08/16 04:00 98.8 92 20 153/73 94 Room Air 07/08/16 00:00 97.9 97 20 139/62 94 Room Air 07/07/16 20:00 98.1 99 22 109/56 93 Room Air 07/07/16 19:30 Room Air 07/07/16 19:30 93 Room Air 07/07/16 16:00 99.1 98 20 129/45 96 Room Air Height (Feet): 5 Height (Inches): 8.00 Weight (Pounds): 193 General Appearance: WD/WN, no acute distress HEENT: normocephalic, atraumatic, anicteric, PERRL, no JVD Respiratory/Chest: chest wall non-tender, normal breath sounds, no respiratory distress, no accessory muscle use, decreased breath sounds, crackles/rales Cardiovascular: normal peripheral pulses, normal rate, regular rhythm, no gallop/murmur Abdomen: normal bowel sounds, soft, non tender, no organomegaly, non distended , no mass Extremities: no cyanosis, no edema Skin: ulcers Current Medications Medications (Trade) Dose Ordered Sig/Koffi Route PRN Reason Start Time Stop Time Status Last Admin Dose Admin Acetaminophen (Tylenol) 650 mg Q4H PRN ORAL T>100.5 07/07/16 18:30 08/06/16 18:29 Acetaminophen/ Hydrocodone Bitart ([place] 5/325) 1 tab Q4H PRN GT Moderate Pain (Pain Scale 4-6) 07/07/16 14:45 07/14/16 14:44 07/08/16 08:46 Albuterol/ Ipratropium (DuoNeb 0.5-3(2.5)mg/3ml) 3 ml Q4H PRN HHN Shortness of Breath 07/07/16 16:30 07/12/16 16:29 Bisacodyl (Dulcolax) 10 mg DAILYPRN PRN RECTAL Constipation 2nd line 07/08/16 10:45 08/07/16 10:44 Clopidogrel Bisulfate (Plavix) 75 mg DAILY GT 07/08/16 09:00 08/07/16 08:59 07/08/16 08:43 Collagenase (Santyl) 1 applic DAILY TOPIC 07/08/16 09:00 08/07/16 08:59 Daptomycin 500 mg/ Sodium Chloride 55 ml @ 110 mls/hr Q48H IV 07/07/16 19:00 07/14/16 18:59 07/07/16 19:57 Dextrose (Dextrose 50%) STAT PRN IV Hypoglycemia 07/08/16 14:30 08/07/16 14:29 Docusate Sodium (Colace) 100 mg TID NG 07/07/16 18:00 08/06/16 17:59 07/08/16 12:34 Epoetin Mars (Procrit (for non ESRD use)) 7,000 units TUE-TUE-TUE SUBQ 07/07/16 21:00 08/06/16 20:59 07/07/16 21:54 Furosemide (Lasix) 40 mg DAILY IV 07/08/16 09:00 08/07/16 08:59 07/08/16 08:42 Insulin Aspart (NovoLOG) EVERY 6 HOURS SUBQ 07/07/16 18:00 08/06/16 17:59 07/08/16 12:33 Lactobacillus Acidophilus (Culturelle) 1 tab THREE TIMES A DAY GT 07/07/16 18:00 08/06/16 17:59 07/08/16 12:35 Lorazepam (Ativan 2mg/ml 1ml) 0.5 mg Q4H PRN IV For Anxiety 07/07/16 14:45 07/14/16 14:44 Meropenem 500 mg/ Sodium Chloride 110 ml @ 220 mls/hr Q12HR IVPB 07/07/16 21:00 07/12/16 20:59 07/08/16 09:25 Micafungin Sodium/ Sodium Chloride (Mycamine/Sodium Chloride) 110 ml @ 110 mls/hr Q24H IVPB 07/08/16 11:00 07/15/16 10:59 07/08/16 12:15 Mineral Oil (Fleet's Mineral Oil Enema) 133 ml DAILYPRN PRN RECTAL Constipation 3rd Line 07/07/16 14:30 08/06/16 14:29 Mycophenolate Mofetil (Cellcept) 500 mg TWICE A DAY GT 07/07/16 18:00 08/06/16 17:59 07/08/16 08:41 Ondansetron HCl (Zofran) 4 mg Q6H PRN IVP Nausea & Vomiting 07/07/16 20:30 08/06/16 20:29 Pantoprazole (Protonix) 40 mg DAILY IVP 07/08/16 09:00 08/07/16 08:59 07/08/16 08:47 Polyethylene Glycol (Miralax) 17 gm DAILYPRN PRN GT Constipation 07/07/16 14:30 08/06/16 14:29 Sodium Hypochlorite (Dakin's Full Strength) 1 applic QPM@2300 TOPIC 07/08/16 23:00 08/07/16 22:59 Tacrolimus (Prograf) 0.5 mg Q12HR@0800 ORAL 07/07/16 20:00 08/06/16 19:59 07/08/16 08:47 Tacrolimus (Prograf) 1 mg Q12HR@0800,1999 ORAL 07/07/16 20:00 08/06/16 19:59 07/08/16 08:42 Valacyclovir HCl (Valtrex) 500 mg EVERY 12 HOURS NG 07/07/16 21:00 08/06/16 20:59 07/08/16 08:50 Vitamin A/Vitamin D (A & D Oint) 1 applic EVERY 12 HOURS TOPIC 07/07/16 21:00 08/06/16 20:59 07/08/16 09:00 Zolpidem Tartrate (Ambien) 5 mg HSPRN PRN GT Insomnia 07/07/16 21:00 08/06/16 20:59 Jose Mott M.D. Jul 08, 2016 15:12
[2016-07-08 16:00] VITALS: BP 137/72
[2016-07-08 20:00] VITALS: BP 122/69
--- NOTE | 2016-07-08 21:49 | Neurology Progress Note ---
Interim History Interim History Interim History Mr. Ralph feels well today. He is awake and alert. The mind is clearer. He has had no further seizures or seizure-like phenomena. His behavior is better. He feels stronger. He denies any new neurologic symptoms. Review of Systems Neuro Review of Systems Benign. Objective Physical Exam Last Vital Signs Date Time Temp Pulse Resp B/P Pulse Ox O2 Delivery O2 Flow Rate FiO2 07/08/16 20:00 99.5 110 19 122/69 99 Room Air 07/07/16 08:03 4.0 07/07/16 07:01 36 Neurologic Exam Objective PHYSICAL EXAMINATION: GENERAL: He is a well-developed, well-nourished, obese, gentleman, lying in bed. HEAD: Normocephalic and atraumatic. NECK: No neck rigidity was observed. EENT: Examination benign. NEUROLOGICAL EXMINATION: MENTAL STATUS EXMINATION: He was awake and alert. He was oriented to self and 2017 only. He could tell me who the present president was. He was unable to cooperate for further mental status testing. SPEECH: Normal. LANGUAGE: His comprehension and expression of language in Irish was stable. CRANIAL NERVE EXAMINATION II: His visual deleon were intact on confrontation testing. III, IV & : The external ocular movements were full and the pupils 3 mm in diameter equal round, regular, and reactive to sluggishly to light. V & VII: Corneal reflexes were brisk bilaterally. VIII: He was able to hear well and had no nystagmus. IX & X: The gag reflex was present. XI: Sternocleidomastoids and trapezii did function. XII: The tongue was in the midline.. MOTOR SYSTEM: The tone was normal in all four extremities. Examination of muscle mass revealed no focal wasting. 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 Examination of power revealed G 5/5 in both upper extremities and G 0/5 in the lower extremities. SENSORY EXAMINATION: He responded appropriately to light touch in all four extremities. REFLEXES: Trace+ and bilaterally symmetrical at the biceps, triceps, brachioradialis, 0 at the left knee. COORDINATION, STANCE & GAIT: Could not be tested. Impression/Recommendations Diagnostic Impression 1. Mr. Sherman Ralph is a 76-year-old, right-handed, gentleman, who does have a past history of hypertension, diabetes mellitus, coronary artery disease, ischemic cardiomyopathy, heart transplant, peripheral vascular disease with right [id number] amputation and left owuzj-zqq-[id number] amputation , chronic kidney disease, and a sacral decubitus who was hospitalized on 2016 for severe anemia, worsening renal function, and severe hyperkalemia . It was felt that he was septic and had been in the intensive care unit for management of all his medical problems. On the morning of 06/29/2016 he was noted to have a seizure, the description of which is unavailable. 2. He has had no further seizures or seizure-like phenomena. He feels better. He is less confused and not agitated. 3. On neurological examination, at this time, he is awake and much more alert. He is better oriented. He moves his upper extremities but not his legs. His deep tendon reflexes are globally diminished in the upper extremities and lost in the left knee. 4. His latest laboratory data on my initial evaluation revealed that he was anemic with a hemoglobin of 8.9. His arterial blood gas revealed a pH of 7.31 with a pCO2 of 52.3 and a pO2 of 67.6. His chemistry panel revealed a sodium elevated to 153, chloride elevated to 115, BUN elevated to 72, creatinine elevated to 3.0, blood glucose elevated to 189. His CRP was elevated to 21.3 and his proBNP was elevated to 6090. He was also significantly hypoalbuminemic with an albumin of 1.9. 5. The EEG done on 06/30/16 revealed a moderate encephalopathy but no focal slowing or inter-ictal phenomena. 6. The patient's history, neurological examination, and laboratory data are most compatible with a single seizure the description of which is unavailable to us. The etiology for the seizure is unclear but there is a high probability that it was a seizure symptomatic of a toxic metabolic insult. He continues to be seizure free at this time. 7. His encephalopathy is still waxing and waning, but is generally better. Recommendations 1. Continue present management. 2. Correct toxic/metabolic imbalances. 3. No indication to start antiseizure medicine. 4. Observe closely. 5. Mobilize. 6. Keep room bright during the day and minimize overstimulation. Gustavo Padilla M.D., [place]. GUSTAVO PADILLA Jul 08, 2016 21:49
[2016-07-08] MEDS ORDERED: Enoxaparin 40mg Inj SUBQ SCH (22:00)
[2016-07-08] MEDS ORDERED: Enoxaparin 40mg Inj SUBQ ONE (22:15)
--- NOTE | 2016-07-08 22:27 | Pulmonology Progress Note ---
Assessment/Plan Problems: (1) Sepsis (2) Severe anemia (3) Acute encephalopathy (4) ATN (acute tubular necrosis) (5) History of heart transplant (6) Decubitus skin ulcer Assessment/Plan check h/h wbc wnl doing better dc planning to IV antibiotics check cultures check electrolytes wound care on cubicine and daptomycine will order venous doppler of left arm Subjective Allergies: Coded Allergies: ADHESIVE TAPE (Verified Allergy, Unknown, Rash, 05/27/16) PLASTIC TAPE-COPIED FROM UNCODED SECTION PENICILLINS (Verified Allergy, Unknown, 06/20/16) PROCAINE (Verified Allergy, Unknown, Rash, 08/19/14) COPIED FRON UNCODED Objective Last 24 Hour Vital Signs Date Time Temp Pulse Resp B/P Pulse Ox O2 Delivery O2 Flow Rate FiO2 07/08/16 20:00 99.5 110 19 122/69 99 Room Air 07/08/16 19:53 Room Air 07/08/16 19:53 96 Room Air 07/08/16 16:00 98.8 108 19 137/72 97 Room Air 07/08/16 12:04 98.2 93 18 153/75 97 Room Air 07/08/16 09:45 97.8 07/08/16 08:18 97.8 95 20 158/73 97 Room Air 07/08/16 07:40 Room Air 07/08/16 07:40 98 Room Air 07/08/16 04:00 98.8 92 20 153/73 94 Room Air 07/08/16 00:00 97.9 97 20 139/62 94 Room Air Intake and Output 07/07/16 07/08/16 19:00 07:00 Intake Total 470 ml 405 ml Output Total 300 ml 1025 ml Balance 170 ml -620 ml Intake Oral 360 ml 240 ml IV Total 110 ml 165 ml Output Urine Total 300 ml 1025 ml # Bowel Movements 1 Objective General Appearance: WD/WN Respiratory/Chest: chest wall non-tender, lungs clear Cardiovascular: normal peripheral pulses, normal rate Abdomen: normal bowel sounds, no organomegaly Skin: no rash Lymphatic: no neck adenopathy, no groin adenopathy Musculoskeletal: no effusion, left arm swelling Current Medications Medications (Trade) Dose Ordered Sig/Koffi Route PRN Reason Start Time Stop Time Status Last Admin Dose Admin Acetaminophen (Tylenol) 650 mg Q4H PRN ORAL T>100.5 07/07/16 18:30 08/06/16 18:29 Albuterol/ Ipratropium (DuoNeb 0.5-3(2.5)mg/3ml) 3 ml Q4H PRN HHN Shortness of Breath 07/07/16 16:30 07/12/16 16:29 Bisacodyl (Dulcolax) 10 mg DAILYPRN PRN RECTAL Constipation 2nd line 07/08/16 10:45 08/07/16 10:44 Clopidogrel Bisulfate (Plavix) 75 mg DAILY GT 07/08/16 09:00 08/07/16 08:59 07/08/16 08:43 Collagenase (Santyl) 1 applic DAILY TOPIC 07/08/16 09:00 08/07/16 08:59 Daptomycin 500 mg/ Sodium Chloride 55 ml @ 110 mls/hr Q48H IV 07/07/16 19:00 07/14/16 18:59 07/07/16 19:57 Dextrose (Dextrose 50%) STAT PRN IV Hypoglycemia 07/08/16 14:30 08/07/16 14:29 Docusate Sodium (Colace) 100 mg TID NG 07/07/16 18:00 08/06/16 17:59 07/08/16 18:09 Enoxaparin Sodium (Lovenox) 80 mg Q24H SUBQ 07/09/16 22:00 08/08/16 21:59 Epoetin Mars (Procrit (for non ESRD use)) 7,000 units MON-WED-FRI SUBQ 07/07/16 21:00 08/06/16 20:59 07/07/16 21:54 Furosemide (Lasix) 40 mg DAILY IV 07/08/16 09:00 08/07/16 08:59 07/08/16 08:42 Insulin Aspart (NovoLOG) EVERY 6 HOURS SUBQ 07/07/16 18:00 08/06/16 17:59 07/08/16 18:11 Lactobacillus Acidophilus (Culturelle) 1 tab THREE TIMES A DAY GT 07/07/16 18:00 08/06/16 17:59 07/08/16 18:09 Lorazepam (Ativan 2mg/ml 1ml) 0.5 mg Q4H PRN IV For Anxiety 07/07/16 14:45 07/14/16 14:44 Meropenem 500 mg/ Sodium Chloride 110 ml @ 220 mls/hr Q12HR IVPB 07/07/16 21:00 07/12/16 20:59 07/08/16 20:36 Micafungin Sodium/ Sodium Chloride (Mycamine/Sodium Chloride) 110 ml @ 110 mls/hr Q24H IVPB 07/08/16 11:00 07/15/16 10:59 07/08/16 12:15 Mineral Oil (Fleet's Mineral Oil Enema) 133 ml DAILYPRN PRN RECTAL Constipation 3rd Line 07/07/16 14:30 08/06/16 14:29 Mycophenolate Mofetil (Cellcept) 500 mg TWICE A DAY GT 07/07/16 18:00 08/06/16 17:59 07/08/16 18:09 Ondansetron HCl (Zofran) 4 mg Q6H PRN IVP Nausea & Vomiting 07/07/16 20:30 08/06/16 20:29 Pantoprazole (Protonix) 40 mg DAILY IVP 07/08/16 09:00 08/07/16 08:59 07/08/16 08:47 Polyethylene Glycol (Miralax) 17 gm DAILYPRN PRN GT Constipation 07/07/16 14:30 08/06/16 14:29 Sodium Hypochlorite (Dakin's Full Strength) 1 applic QPM@2300 TOPIC 07/08/16 23:00 08/07/16 22:59 Tacrolimus (Prograf) 0.5 mg Q12HR@0800 ORAL 07/07/16 20:00 08/06/16 19:59 07/08/16 20:36 Tacrolimus (Prograf) 1 mg Q12HR@0800,1999 ORAL 07/07/16 20:00 08/06/16 19:59 07/08/16 20:36 Valacyclovir HCl (Valtrex) 500 mg EVERY 12 HOURS NG 07/07/16 21:00 08/06/16 20:59 07/08/16 20:36 Vitamin A/Vitamin D (A & D Oint) 1 applic EVERY 12 HOURS TOPIC 07/07/16 21:00 08/06/16 20:59 07/08/16 20:37 Zolpidem Tartrate (Ambien) 5 mg HSPRN PRN GT Insomnia 2/22/17 21:00 08/06/16 20:59 AMADO SCHULER Jul 08, 2016 22:27
[2016-07-08] MEDS: Dakin's 0.5% (Full Strength) 16oz TOPIC SCH (23:11)
[2016-07-09] VITALS: BP 119/64
--- NOTE | 2016-07-09 00:48 | Consultation ---
DATE OF CONSULTATION: 07/08/2016 HEMATOLOGY/ONCOLOGY CONSULTATION CONSULTING PHYSICIAN: Arthur Cota M.D. REQUESTING PHYSICIAN: Sudarshan Hahn M.D. REASON FOR CONSULTATION: Evaluation of upper extremity DVT. IDENTIFICATION DATA: Dear Dr. Sudarshan Hahn, The patient is a pleasant 76-year-old [place]-speaking male with a past medical history, which is significant for a heart transplant as well as CKD, peripheral vascular disease, diabetic nephropathy, acute blood loss, hyperkalemia, and history of anemia, at this time presents to [facility] to the ER on 06/17/2016 due to abnormal labs. He was noted to be anemic as well as hyperkalemic. Also, he had a PICC line recently for treatment of osteomyelitis. He was transfused blood during the course of the hospitalization. He has required intubation, received antibiotics, and is now status post extubation. He had a decubitus ulceration, no need for surgical debridement as per Plastic recommendations. He had anemia and was transfused and peripheral vascular disease and status post bilateral [id number] amputation. He is status post heart transplant and [facility]. In the meantime, he has developed a left lower extremity DVT sustained on 06/25/2016 and at that time continues to complain of swelling and a duplex was performed again. The patient was noted to have occlusive clots in the deep vein of the left arm. Therefore, Hematology service was consulted for further evaluation and treatment. The patient continues to be on antibiotics . The patient currently is not on Lovenox. PAST MEDICAL HISTORY: As noted above. 1. Peripheral vascular disease. 2. [id number] amputation. 3. . 4. Decubitus ulceration. 5. Acute renal failure on chronic kidney disease. 6. DVT. 7. Anemia. 8. . PAST SURGICAL HISTORY: Right above-knee amputation. MEDICATIONS: Epogen, ferrous sulfate, glyburide, insulin, meropenem, , mirtazapine, multivitamin, pravastatin, , and atenolol. ALLERGIES: Adhesive tape and procaine. SOCIAL HISTORY: No alcohol, tobacco, or illicit drug use. FAMILY HISTORY: Noncontributory. REVIEW OF SYSTEMS: Constitutional: No fever, chills, or night sweats. Skin: No rashes, lumps, or itching. HEENT: No headache or vision changes. Breasts: No lumps, pain, or discharge. Pulmonary: No cough, sputum, or shortness of breath. Cardiovascular: No chest pain, tightness, or palpitations. Gastrointestinal: No nausea, vomiting, or diarrhea. Genitourinary: No dysuria, frequency, or urgency. Musculoskeletal: Left upper extremity swelling noted. PHYSICAL EXAMINATION: GENERAL: The patient is in no acute distress. VITAL SIGNS: Temperature 98.8 degrees Fahrenheit, pulse , respiratory rate 12, blood pressure 137/72, and pulse oximetry 97% on room air. PULMONARY: Decreased breath sounds. CARDIOVASCULAR: Regular rate and rhythm. ABDOMEN: Soft, nontender, and nondistended. EXTREMITIES: A 1+ edema. Left upper extremity swelling. The patient is complaining of . LABORATORY DATA: Currently, sodium 146 and creatinine 2.5. BNP of 2400. INR 1. WBC 7.2, hemoglobin , hematocrit , and platelet count 429,000. Serology reviewed. 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 ASSESSMENT: 1. Left upper extremity deep venous thrombosis. I have reviewed the patient's imaging and the patient is clinically symptomatic at this time. He has a partially occlusive acute thrombus in the subclavian axis in the proximal and brachial veins within the upper arm. He had a PICC line in place on 06/25/2016 and 06/30/2016, a deep vein thrombosis at that time, unfortunately, this is not superficial femoral phlebitis, therefore the patient will in fact benefit from the use of Lovenox for a period of three months to prevent the risk of embolization as well as clot extension, which will increase his morbidity, mortality, and increase his mortality. 2. Anemia, which is secondary to chronic disease and inflammation as well as kidney disease. 3. Anemia secondary to kidney disease. 4. Sepsis. 5. . 6. Decubitus ulcerations. 7. Chronic kidney disease. 8. . RECOMMENDATIONS: 1. Begin the patient on Lovenox. He will require a total of three months of Lovenox at least. 2. on anticoagulation. 3. Continue Plavix and aspirin per primary team. 4. The patient is currently not on aspirin, however, it may help to prevent recurrence of clots. 5. Continue Epogen given the renal disease. 6. GI prophylaxis with PPI. 7. Continue antibiotics as needed. 8. We will send for . 9. Consider arm elevation as well and PICC line has been removed and replaced on the right side. 10. May consider warm compressors, however, it is more effective phlebitis. 11. Monitor closely swelling. 12. Discussed with staff. Thank you Dr. Sudarshan Hahn for this kind referral. Please do not hesitate to contact me at any time. Arthur Cota M.D. DR: FLORIN JOB#: [id number] CC:
[2016-07-09 04:00] VITALS: BP 129/75
[2016-07-09] MEDS: NovoLOG Insulin Flexpen SUBQ SCH ×4 (06:34→17:45)
[2016-07-09 08:00] VITALS: BP 124/65
[2016-07-09] MEDS: Mycophenolate 250mg cap GT SCH ×2 (08:32→17:32)
[2016-07-09] MEDS: Lactobacillus-GG tablet GT SCH ×3 (08:33→17:32)
[2016-07-09] MEDS: Pantoprazole Inj IVP SCH (08:33)
[2016-07-09] MEDS: Docusate 100mg tablet NG SCH ×3 (08:33→17:32)
[2016-07-09] MEDS: Meropenem 500 MG in NS 110 ML IVPB SCH ×2 (08:35→22:22)
[2016-07-09] MEDS: Vitamin A&D Oint 2oz Tube TOPIC SCH ×2 (08:42→21:00)
--- NOTE | 2016-07-09 09:11 | General Progress Note ---
Assessment/Plan Assessment/Plan ASSESSMENT: 1. Left upper extremity deep venous thrombosis. I have reviewed the patient's imaging and the patient is clinically symptomatic at this time. He has a partially occlusive acute thrombus in the subclavian axis in the proximal and brachial veins within the upper arm. He had a PICC line in place on 06/25/2016 and it was removed after a duplex showed a clot at that time. Unfortunately, this is a deep vein and not superficial femoral phlebitis, therefore the patient will in fact benefit from the use of Lovenox v coumadin for a period of three months to prevent the risk of embolization as well as clot extension. Goal is to decrease morbidity, mortality. Patient has poor understanding of his disease process 2. Anemia, which is secondary to chronic disease and inflammation as well as kidney disease. 3. Anemia secondary to kidney disease. 4. Sepsis. 5. Decubitus ulcerations. 6. Chronic kidney disease. RECOMMENDATIONS: 1. Begin the patient on Lovenox. 2. Have ordered for coumadin (will need for 3 months until 10/06/16) and then can get a ddimer and repeat US 3. Continue Plavix as per primary team. 4. Have started ASA, if okay with primary team, has shows to decrease clot recurrence 5. Continue Epogen given the renal disease. 6. GI prophylaxis with PPI. 7. Continue antibiotics as needed. 8. Followup with PCP/hematology as needed 9. Discussed with staff. Thank you, Arthur Cota MD Subjective Constitutional: Reports: no symptoms HEENT: Reports: no symptoms Cardiovascular: Reports: no symptoms Respiratory: Reports: no symptoms Gastrointestinal/Abdominal: Reports: no symptoms Genitourinary: Reports: no symptoms Neurologic/Psychiatric: Reports: anxiety Endocrine: Reports: no symptoms Hematologic/Lymphatic: Reports: anemia Allergies: Coded Allergies: ADHESIVE TAPE (Verified Allergy, Unknown, Rash, 05/27/16) PLASTIC TAPE-COPIED FROM UNCODED SECTION PENICILLINS (Verified Allergy, Unknown, 06/20/16) PROCAINE (Verified Allergy, Unknown, Rash, 08/19/14) COPIED FRON UNCODED Subjective stable, no complaints this am, anguillan speaking and explained to him in regards to coumadin, however patient very poor of understanding Objective Last 24 Hour Vital Signs Date Time Temp Pulse Resp B/P Pulse Ox O2 Delivery O2 Flow Rate FiO2 07/09/16 04:00 99.0 100 20 129/75 95 Room Air 07/09/16 00:00 97.0 108 20 119/64 94 Room Air 07/08/16 20:00 99.5 110 19 122/69 99 Room Air 07/08/16 19:53 Room Air 07/08/16 19:53 96 Room Air 07/08/16 16:00 98.8 108 19 137/72 97 Room Air 07/08/16 12:04 98.2 93 18 153/75 97 Room Air 07/08/16 09:45 97.8 Intake and Output 07/08/16 07/09/16 19:00 07:00 Intake Total 580 ml 710 ml Output Total 800 ml 1200 ml Balance -220 ml -490 ml Intake Oral 360 ml 600 ml IV Total 220 ml 110 ml Output Urine Total 800 ml 1200 ml Laboratory Tests 07/09/16 04:30: Ferritin 1656H Height (Feet): 5 Height (Inches): 8.00 Weight (Pounds): 193 General Appearance: alert EENT: TMs normal Neck: supple Cardiovascular: regular rhythm Respiratory/Chest: normal breath sounds Abdomen: non tender Extremities: non-tender, swelling Edema: 2+ Arm (L), no edema noted Arm (R), no edema noted Leg (L), no edema noted Leg (R), no edema noted Pedal (L), no edema noted Pedal (R) Neurologic: alert Skin: warm/dry Arthur Cota Jul 09, 2016 09:11
[2016-07-09] MEDS: Micafungin 100 MG in NS 110 ML IVPB SCH (11:43)
[2016-07-09 12:00] VITALS: BP 134/71
--- NOTE | 2016-07-09 12:26 | General Progress Note ---
Assessment/Plan Status: stable Assessment/Plan status: Acute Renal Failure on Chronic renal failure - Cr stable Acute respiratory failure- septic shock , metabolic acidosis resolved Superimposed on CRI due to DM / HTN PVD s/p amputation- Severe Anemia s/p Heart transplant sacral decub plan: no labs today- extubated 07/01 Mag supplement as needed transfused watch CHF Sxs wound care- monitor renal parameters- optimize cardiac and pulm status- wean as possible. avoid nephrotoxics per ID and cardiology discussed with RN Subjective ROS Limited/Unobtainable: No Constitutional: Reports: malaise Allergies: Coded Allergies: ADHESIVE TAPE (Verified Allergy, Unknown, Rash, 05/27/16) PLASTIC TAPE-COPIED FROM UNCODED SECTION PENICILLINS (Verified Allergy, Unknown, 06/20/16) PROCAINE (Verified Allergy, Unknown, Rash, 08/19/14) COPIED FRON UNCODED Objective Last 24 Hour Vital Signs Date Time Temp Pulse Resp B/P Pulse Ox O2 Delivery O2 Flow Rate FiO2 07/09/16 08:00 97.5 93 19 124/65 97 Room Air 07/09/16 07:55 97 Room Air 07/09/16 07:06 Room Air 07/09/16 04:00 99.0 100 20 129/75 95 Room Air 07/09/16 00:00 97.0 108 20 119/64 94 Room Air 07/08/16 20:00 99.5 110 19 122/69 99 Room Air 07/08/16 19:53 Room Air 07/08/16 19:53 96 Room Air 07/08/16 16:00 98.8 108 19 137/72 97 Room Air Intake and Output 07/08/16 07/09/16 19:00 07:00 Intake Total 580 ml 710 ml Output Total 800 ml 1200 ml Balance -220 ml -490 ml Intake Oral 360 ml 600 ml IV Total 220 ml 110 ml Output Urine Total 800 ml 1200 ml Laboratory Tests 07/09/16 04:30: Ferritin 1656H Height (Feet): 5 Height (Inches): 8.00 Weight (Pounds): 193 General Appearance: no apparent distress Objective no other changes in PE BRIJESH CALDERON Jul 09, 2016 12:26
[2016-07-09] MEDS ORDERED: NS 275ml ONE (14:39)
[2016-07-09] MEDS ORDERED: Tubing Blood Filter IV ONE (14:39)
[2016-07-09 16:00] VITALS: BP 138/68
--- NOTE | 2016-07-09 17:04 | Infectious Diseases Prog Note ---
Assessment/Plan Problems: (1) Sepsis Assessment & Plan: continue daptomycin(day 20) for 4 weeks ,meropenem (day 21 ) for 6 weeks , and micafungin (day13) for 2 weeks , repeated blood culture remained negative , and sputum culture grew junaid albicans only which is most likely colonization and not real. will continue current regimen for the duration outlined. 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 continue local wound care , and off loading. (4) Anemia Assessment & Plan: S/P blood transfusion, monitor H&H, need to rule out GI source. (5) PVD (peripheral vascular disease) Assessment & Plan: S/P B/L AKA. (6) CKD (chronic kidney disease) Assessment & Plan: avoid nephrotoxic meds, monitor UOP, and renal function, renal is following (7) Heart transplant status Assessment & Plan: recommend to communicate with his heart transplant team at [facility] for further recommendation, and possible transfer to [facility] for higher level of care, continue transplant meds , and adjust as per his GFR. 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, on valacyclovir renally dosed for 10 days total (9) DVT of axillary vein, acute left Assessment & Plan: recommend anticoagulation as per primary and HEM consult Subjective Constitutional: Reports: fatigue Gastrointestinal/Abdominal: Reports: bloating, constipation Musculoskeletal: Reports: pain Allergies: Coded Allergies: ADHESIVE TAPE (Verified Allergy, Unknown, Rash, 05/27/16) PLASTIC TAPE-COPIED FROM UNCODED SECTION PENICILLINS (Verified Allergy, Unknown, 06/20/16) PROCAINE (Verified Allergy, Unknown, Rash, 08/19/14) COPIED FRON UNCODED All Systems: reviewed and negative except above Subjective he was doing well, up in bed, resting, denied any fever or chills, no diarrhea , sating well on room air Objective Vital Signs Last 24 Hour Vital Signs Date Time Temp Pulse Resp B/P Pulse Ox O2 Delivery O2 Flow Rate FiO2 07/09/16 12:00 98.5 89 20 134/71 98 Room Air 07/09/16 08:00 97.5 93 19 124/65 97 Room Air 07/09/16 07:55 97 Room Air 07/09/16 07:06 Room Air 07/09/16 04:00 99.0 100 20 129/75 95 Room Air 07/09/16 00:00 97.0 108 20 119/64 94 Room Air 07/08/16 20:00 99.5 110 19 122/69 99 Room Air 07/08/16 19:53 Room Air 07/08/16 19:53 96 Room Air Height (Feet): 5 Height (Inches): 8.00 Weight (Pounds): 193 General Appearance: WD/WN, no acute distress HEENT: normocephalic, atraumatic, anicteric, mucous membranes moist Respiratory/Chest: chest wall non-tender, normal breath sounds, no respiratory distress, no accessory muscle use, decreased breath sounds, crackles/rales Cardiovascular: normal peripheral pulses, normal rate, regular rhythm, no gallop/murmur Abdomen: normal bowel sounds, soft, non tender, no organomegaly, no mass, no scars Extremities: no cyanosis Skin: ulcers Laboratory Tests Test 07/09/16 04:30 Ferritin 1656 ng/mL (10-230) H Current Medications Medications (Trade) Dose Ordered Sig/Koffi Route PRN Reason Start Time Stop Time Status Last Admin Dose Admin Acetaminophen (Tylenol) 650 mg Q4H PRN ORAL T>100.5 07/07/16 18:30 08/06/16 18:29 Albuterol/ Ipratropium (DuoNeb 0.5-3(2.5)mg/3ml) 3 ml Q4H PRN HHN Shortness of Breath 07/07/16 16:30 07/12/16 16:29 Bisacodyl (Dulcolax) 10 mg DAILYPRN PRN RECTAL Constipation 2nd line 07/08/16 10:45 08/07/16 10:44 Clopidogrel Bisulfate (Plavix) 75 mg DAILY GT 07/08/16 09:00 08/07/16 08:59 07/09/16 08:33 Collagenase (Santyl) 1 applic Q24H TOPIC 07/09/16 23:00 08/08/16 22:59 Daptomycin 500 mg/ Sodium Chloride 55 ml @ 110 mls/hr Q48H IV 07/07/16 19:00 07/14/16 18:59 07/07/16 19:57 Dextrose (Dextrose 50%) STAT PRN IV Hypoglycemia 07/08/16 14:30 08/07/16 14:29 Docusate Sodium (Colace) 100 mg TID NG 07/07/16 18:00 08/06/16 17:59 07/09/16 12:41 Enoxaparin Sodium (Lovenox) 80 mg Q24H SUBQ 07/09/16 22:00 08/08/16 21:59 Epoetin Mars (Procrit (for non ESRD use)) 7,000 units TUE-TUE-TUE SUBQ 07/07/16 21:00 08/06/16 20:59 07/07/16 21:54 Furosemide (Lasix) 40 mg DAILY IV 07/08/16 09:00 08/07/16 08:59 07/09/16 08:33 Insulin Aspart (NovoLOG) EVERY 6 HOURS SUBQ 07/07/16 18:00 08/06/16 17:59 07/09/16 12:17 Lactobacillus Acidophilus (Culturelle) 1 tab THREE TIMES A DAY GT 07/07/16 18:00 08/06/16 17:59 07/09/16 12:41 Lorazepam (Ativan 2mg/ml 1ml) 0.5 mg Q4H PRN IV For Anxiety 07/07/16 14:45 07/14/16 14:44 Meropenem 500 mg/ Sodium Chloride 110 ml @ 220 mls/hr Q12HR IVPB 07/07/16 21:00 07/12/16 20:59 07/09/16 08:35 Micafungin Sodium/ Sodium Chloride (Mycamine/Sodium Chloride) 110 ml @ 110 mls/hr Q24H IVPB 07/08/16 11:00 07/15/16 10:59 07/09/16 11:43 Mineral Oil (Fleet's Mineral Oil Enema) 133 ml DAILYPRN PRN RECTAL Constipation 3rd Line 07/07/16 14:30 08/06/16 14:29 Mycophenolate Mofetil (Cellcept) 500 mg TWICE A DAY GT 07/07/16 18:00 08/06/16 17:59 07/09/16 08:32 Ondansetron HCl (Zofran) 4 mg Q6H PRN IVP Nausea & Vomiting 07/07/16 20:30 08/06/16 20:29 Pantoprazole (Protonix) 40 mg DAILY IVP 07/08/16 09:00 08/07/16 08:59 07/09/16 08:33 Polyethylene Glycol (Miralax) 17 gm DAILYPRN PRN GT Constipation 07/07/16 14:30 08/06/16 14:29 Sodium Hypochlorite (Dakin's Full Strength) 1 applic QPM@2300 TOPIC 07/08/16 23:00 08/07/16 22:59 07/08/16 23:11 Tacrolimus (Prograf) 0.5 mg Q12HR@0800,1999 ORAL 07/07/16 20:00 08/06/16 19:59 07/09/16 08:32 Tacrolimus (Prograf) 1 mg Q12HR@0800,1999 ORAL 07/07/16 20:00 08/06/16 19:59 07/09/16 08:32 Valacyclovir HCl (Valtrex) 500 mg EVERY 12 HOURS NG 07/07/16 21:00 08/06/16 20:59 07/09/16 08:32 Vitamin A/Vitamin D (A & D Oint) 1 applic EVERY 12 HOURS TOPIC 07/07/16 21:00 08/06/16 20:59 07/09/16 08:42 Warfarin Sodium (Coumadin per pharmacy) 1 ea DAILY PRN MISC Per rx protocol 07/09/16 09:15 08/08/16 09:14 Zolpidem Tartrate (Ambien) 5 mg HSPRN PRN GT Insomnia 07/07/16 21:00 08/06/16 20:59 Jose Mott M.D. Jul 09, 2016 17:04
[2016-07-09 19:00] VITALS: BP 133/69
[2016-07-09] MEDS: DAPTOmycin 500 MG in NS 55 ML IV SCH (19:33)
[2016-07-09] MEDS ORDERED: Enoxaparin 80mg Inj SUBQ SCH (22:00)
[2016-07-09] MEDS: Epogen (for non ESRD use) SUBQ SCH (22:21)
--- NOTE | 2016-07-09 22:22 | Pulmonology Progress Note ---
Assessment/Plan Problems: (1) Sepsis (2) Severe anemia (3) Acute encephalopathy (4) ATN (acute tubular necrosis) (5) History of heart transplant (6) Decubitus skin ulcer Assessment/Plan check h/h wbc wnl doing better dc planning to IV antibiotics check cultures check electrolytes wound care on cubicine and daptomycine will order venous doppler of left arm Subjective Allergies: Coded Allergies: ADHESIVE TAPE (Verified Allergy, Unknown, Rash, 05/27/16) PLASTIC TAPE-COPIED FROM UNCODED SECTION PENICILLINS (Verified Allergy, Unknown, 06/20/16) PROCAINE (Verified Allergy, Unknown, Rash, 08/19/14) COPIED FRON UNCODED Objective Last 24 Hour Vital Signs Date Time Temp Pulse Resp B/P Pulse Ox O2 Delivery O2 Flow Rate FiO2 07/09/16 20:35 96 Room Air 07/09/16 20:32 Room Air 07/09/16 19:00 98.1 87 18 133/69 96 Room Air 07/09/16 16:00 97.3 89 18 138/68 98 Room Air 07/09/16 12:00 98.5 89 20 134/71 98 Room Air 07/09/16 08:00 97.5 93 19 124/65 97 Room Air 07/09/16 07:55 97 Room Air 07/09/16 07:06 Room Air 07/09/16 04:00 99.0 100 20 129/75 95 Room Air 07/09/16 00:00 97.0 108 20 119/64 94 Room Air Intake and Output 07/08/16 07/09/16 19:00 07:00 Intake Total 580 ml 710 ml Output Total 800 ml 1200 ml Balance -220 ml -490 ml Intake Oral 360 ml 600 ml IV Total 220 ml 110 ml Output Urine Total 800 ml 1200 ml Objective General Appearance: WD/WN Respiratory/Chest: chest wall non-tender, lungs clear Cardiovascular: normal peripheral pulses, normal rate Abdomen: normal bowel sounds, no organomegaly Skin: no rash Lymphatic: no neck adenopathy, no groin adenopathy Musculoskeletal: no effusion, left arm swelling Laboratory Tests 07/09/16 04:30: Ferritin 1656H Current Medications Medications (Trade) Dose Ordered Sig/Koffi Route PRN Reason Start Time Stop Time Status Last Admin Dose Admin Acetaminophen (Tylenol) 650 mg Q4H PRN ORAL T>100.5 07/07/16 18:30 08/06/16 18:29 Albuterol/ Ipratropium (DuoNeb 0.5-3(2.5)mg/3ml) 3 ml Q4H PRN HHN Shortness of Breath 07/07/16 16:30 07/12/16 16:29 Bisacodyl (Dulcolax) 10 mg DAILYPRN PRN RECTAL Constipation 2nd line 07/08/16 10:45 08/07/16 10:44 Clopidogrel Bisulfate (Plavix) 75 mg DAILY GT 07/08/16 09:00 08/07/16 08:59 07/09/16 08:33 Collagenase (Santyl) 1 applic Q24H TOPIC 07/09/16 23:00 08/08/16 22:59 Daptomycin 500 mg/ Sodium Chloride 55 ml @ 110 mls/hr Q48H IV 07/07/16 19:00 07/14/16 18:59 07/09/16 19:33 Dextrose (Dextrose 50%) STAT PRN IV Hypoglycemia 07/08/16 14:30 08/07/16 14:29 Docusate Sodium (Colace) 100 mg TID NG 07/07/16 18:00 08/06/16 17:59 07/09/16 17:32 Enoxaparin Sodium (Lovenox) 80 mg Q24H SUBQ 07/09/16 22:00 08/08/16 21:59 Epoetin Mars (Procrit (for non ESRD use)) 7,000 units TUE-WED-TUE SUBQ 07/07/16 21:00 08/06/16 20:59 07/07/16 21:54 Furosemide (Lasix) 40 mg DAILY IV 07/08/16 09:00 08/07/16 08:59 07/09/16 08:33 Insulin Aspart (NovoLOG) EVERY 6 HOURS SUBQ 07/07/16 18:00 08/06/16 17:59 07/09/16 17:45 Lactobacillus Acidophilus (Culturelle) 1 tab THREE TIMES A DAY GT 07/07/16 18:00 08/06/16 17:59 07/09/16 17:32 Lorazepam (Ativan 2mg/ml 1ml) 0.5 mg Q4H PRN IV For Anxiety 07/07/16 14:45 07/14/16 14:44 Meropenem 500 mg/ Sodium Chloride 110 ml @ 220 mls/hr Q12HR IVPB 07/07/16 21:00 07/12/16 20:59 07/09/16 08:35 Micafungin Sodium/ Sodium Chloride (Mycamine/Sodium Chloride) 110 ml @ 110 mls/hr Q24H IVPB 07/08/16 11:00 07/15/16 10:59 07/09/16 11:43 Mineral Oil (Fleet's Mineral Oil Enema) 133 ml DAILYPRN PRN RECTAL Constipation 3rd Line 07/07/16 14:30 08/06/16 14:29 Mycophenolate Mofetil (Cellcept) 500 mg TWICE A DAY GT 07/07/16 18:00 08/06/16 17:59 07/09/16 17:32 Ondansetron HCl (Zofran) 4 mg Q6H PRN IVP Nausea & Vomiting 07/07/16 20:30 08/06/16 20:29 Pantoprazole (Protonix) 40 mg DAILY IVP 07/08/16 09:00 08/07/16 08:59 07/09/16 08:33 Polyethylene Glycol (Miralax) 17 gm DAILYPRN PRN GT Constipation 07/07/16 14:30 08/06/16 14:29 Sodium Hypochlorite (Dakin's Full Strength) 1 applic QPM@2300 TOPIC 07/08/16 23:00 08/07/16 22:59 07/08/16 23:11 Tacrolimus (Prograf) 0.5 mg Q12HR@0800 ORAL 07/07/16 20:00 08/06/16 19:59 07/09/16 19:07 Tacrolimus (Prograf) 1 mg Q12HR@0800,1999 ORAL 07/07/16 20:00 08/06/16 19:59 07/09/16 19:06 Valacyclovir HCl (Valtrex) 500 mg EVERY 12 HOURS NG 07/07/16 21:00 08/06/16 20:59 07/09/16 08:32 Vitamin A/Vitamin D (A & D Oint) 1 applic EVERY 12 HOURS TOPIC 07/07/16 21:00 08/06/16 20:59 07/09/16 08:42 Warfarin Sodium (Coumadin per pharmacy) 1 ea DAILY PRN MISC Per rx protocol 07/09/16 09:15 08/08/16 09:14 Zolpidem Tartrate (Ambien) 5 mg HSPRN PRN GT Insomnia 07/07/16 21:00 08/06/16 20:59 AMADO SCHULER Jul 09, 2016 22:22
[2016-07-09] MEDS: Dakin's 0.5% (Full Strength) 16oz TOPIC SCH (22:33)
[2016-07-10] VITALS: BP 128/74
[2016-07-10 04:00] VITALS: BP 139/71
[2016-07-10] MEDS: NovoLOG Insulin Flexpen SUBQ SCH ×3 (06:49→11:50)
[2016-07-10 07:12] LABS: INR 1.2 (0.9-1.1); PROTHROMBIN TIME 12.1 SEC (9.30-11.50)
[2016-07-10 08:14] VITALS: BP 155/63
[2016-07-10] MEDS: Docusate 100mg tablet NG SCH ×2 (09:00→13:28)
[2016-07-10] MEDS: Lactobacillus-GG tablet GT SCH ×2 (09:00→13:28)
[2016-07-10] MEDS: Mycophenolate 250mg cap GT SCH (09:00)
[2016-07-10] MEDS: Vitamin A&D Oint 2oz Tube TOPIC SCH (09:00)
[2016-07-10] MEDS: Meropenem 500 MG in NS 110 ML IVPB SCH (09:31)
[2016-07-10] MEDS: Pantoprazole Inj IVP SCH (09:31)
[2016-07-10] MEDS: Micafungin 100 MG in NS 110 ML IVPB SCH (11:00)
--- NOTE | 2016-07-10 11:52 | Cardiology Progress Note ---
Assessment/Plan Assessment/Plan hyperkalemia due ro renal failure and over use of benicar (two time the upper limit of max does recommended) acute on chronic renal filure s/p heart tx dm with endorgan disease pvd obesity anemia htn acute reparatory failure and acidosis hypernatremia presumed pneumonia hypotension ?volume related tachy cardia ? volume related planned dc noted prograf now 1.5 bid received prbc tx a few lanre go would be tolerant of anemia since post transplant cr stabel echo ef 50-55% d/w rn bnp non diagnostic in light of renal insuf presume pneumonia on abx will send prograff level in am if still here make sure wive dose nto give benicar agian at home nwo bp is fien he dose nto have any need for bp meds bu woudl given norvasc 2.5 mg bid prn sbp greaterh nt e155 duration 45 min Subjective Cardiovascular: Denies: chest pain, lightheadedness Gastrointestinal/Abdominal: Denies: abdominal pain Objective Last 24 Hour Vital Signs Date Time Temp Pulse Resp B/P Pulse Ox O2 Delivery O2 Flow Rate FiO2 07/10/16 08:14 97.8 88 20 155/63 98 Room Air 07/10/16 07:40 97 Room Air 07/10/16 07:40 Room Air 07/10/16 04:00 99.3 91 19 139/71 97 Room Air 07/10/16 00:00 98.9 101 22 128/74 96 Room Air 07/09/16 20:35 96 Room Air 07/09/16 20:32 Room Air 07/09/16 19:00 98.1 87 18 133/69 96 Room Air 07/09/16 16:00 97.3 89 18 138/68 98 Room Air 07/09/16 12:00 98.5 89 20 134/71 98 Room Air General Appearance: alert Neck: supple Cardiovascular: normal rate, regular rhythm Respiratory/Chest: lungs clear Abdomen: normal bowel sounds, non tender, soft Extremities: no swelling Intake and Output 07/09/16 07/10/16 19:00 07:00 Intake Total 460 ml 920 ml Output Total 350 ml 700 ml Balance 110 ml 220 ml Intake Oral 240 ml 920 ml IV Total 220 ml Output Urine Total 350 ml 700 ml # Bowel Movements 1 Laboratory Tests Test 2/25/17 04:55 Prothrombin Time 12.1 SEC (9.30-11.50) H Prothromb Time International Ratio 1.2 (0.9-1.1) H HAILEE PATEL Jul 10, 2016 11:52
[2016-07-10 12:00] VITALS: BP 126/74
--- NOTE | 2016-07-10 12:31 | General Progress Note ---
Assessment/Plan Status: stable Assessment/Plan status: Acute Renal Failure on Chronic renal failure - Cr stable Acute respiratory failure- septic shock , metabolic acidosis resolved Superimposed on CRI due to DM / HTN PVD s/p amputation- Severe Anemia s/p Heart transplant sacral decub plan: no labs today- extubated 07/01 Mag supplement as needed transfused watch CHF Sxs wound care- monitor renal parameters- optimize cardiac and pulm status- wean as possible. avoid nephrotoxics per ID and cardiology discussed with RN Subjective ROS Limited/Unobtainable: No Constitutional: Reports: malaise Allergies: Coded Allergies: ADHESIVE TAPE (Verified Allergy, Unknown, Rash, 05/27/16) PLASTIC TAPE-COPIED FROM UNCODED SECTION PENICILLINS (Verified Allergy, Unknown, 06/20/16) PROCAINE (Verified Allergy, Unknown, Rash, 08/19/14) COPIED FRON UNCODED Objective Last 24 Hour Vital Signs Date Time Temp Pulse Resp B/P Pulse Ox O2 Delivery O2 Flow Rate FiO2 07/10/16 08:14 97.8 88 20 155/63 98 Room Air 07/10/16 07:40 97 Room Air 07/10/16 07:40 Room Air 07/10/16 04:00 99.3 91 19 139/71 97 Room Air 07/10/16 00:00 98.9 101 22 128/74 96 Room Air 07/09/16 20:35 96 Room Air 07/09/16 20:32 Room Air 07/09/16 19:00 98.1 87 18 133/69 96 Room Air 07/09/16 16:00 97.3 89 18 138/68 98 Room Air Intake and Output 07/09/16 07/10/16 19:00 07:00 Intake Total 460 ml 920 ml Output Total 350 ml 700 ml Balance 110 ml 220 ml Intake Oral 240 ml 920 ml IV Total 220 ml Output Urine Total 350 ml 700 ml # Bowel Movements 1 Laboratory Tests 07/10/16 04:55: Prothrombin Time 12.1H, Prothromb Time International Ratio 1.2H Height (Feet): 5 Height (Inches): 8.00 Weight (Pounds): 193 General Appearance: no apparent distress Objective no other changes in PE BRIJESH CALDERON Jul 10, 2016 12:31
--- NOTE | 2016-07-10 12:44 | Pulmonology Progress Note ---
Assessment/Plan Problems: (1) Sepsis (2) Severe anemia (3) Acute encephalopathy (4) ATN (acute tubular necrosis) (5) History of heart transplant (6) Decubitus skin ulcer Assessment/Plan check h/h wbc wnl doing better dc planning to IV antibiotics check cultures check electrolytes wound care on cubicine and daptomycine will order venous doppler of left arm Subjective Allergies: Coded Allergies: ADHESIVE TAPE (Verified Allergy, Unknown, Rash, 05/27/16) PLASTIC TAPE-COPIED FROM UNCODED SECTION PENICILLINS (Verified Allergy, Unknown, 06/20/16) PROCAINE (Verified Allergy, Unknown, Rash, 08/19/14) COPIED FRON UNCODED Objective Last 24 Hour Vital Signs Date Time Temp Pulse Resp B/P Pulse Ox O2 Delivery O2 Flow Rate FiO2 07/10/16 12:00 97.7 88 18 126/74 99 Room Air 07/10/16 08:14 97.8 88 20 155/63 98 Room Air 07/10/16 07:40 97 Room Air 07/10/16 07:40 Room Air 07/10/16 04:00 99.3 91 19 139/71 97 Room Air 07/10/16 00:00 98.9 101 22 128/74 96 Room Air 07/09/16 20:35 96 Room Air 07/09/16 20:32 Room Air 07/09/16 19:00 98.1 87 18 133/69 96 Room Air 07/09/16 16:00 97.3 89 18 138/68 98 Room Air Intake and Output 07/09/16 07/10/16 19:00 07:00 Intake Total 460 ml 920 ml Output Total 350 ml 700 ml Balance 110 ml 220 ml Intake Oral 240 ml 920 ml IV Total 220 ml Output Urine Total 350 ml 700 ml # Bowel Movements 1 Objective General Appearance: WD/WN Respiratory/Chest: chest wall non-tender, lungs clear Cardiovascular: normal peripheral pulses, normal rate Abdomen: normal bowel sounds, no organomegaly Skin: no rash Lymphatic: no neck adenopathy, no groin adenopathy Musculoskeletal: no effusion, left arm swelling Laboratory Tests 07/10/16 04:55: Prothrombin Time 12.1H, Prothromb Time International Ratio 1.2H Current Medications Medications (Trade) Dose Ordered Sig/Koffi Route PRN Reason Start Time Stop Time Status Last Admin Dose Admin Acetaminophen (Tylenol) 650 mg Q4H PRN ORAL T>100.5 07/07/16 18:30 08/06/16 18:29 Albuterol/ Ipratropium (DuoNeb 0.5-3(2.5)mg/3ml) 3 ml Q4H PRN HHN Shortness of Breath 07/07/16 16:30 07/12/16 16:29 Amlodipine Besylate 2.5 mg 2.5 mg DAILY PRN ORAL SBP>155 07/10/16 12:00 08/09/16 11:59 Bisacodyl (Dulcolax) 10 mg DAILYPRN PRN RECTAL Constipation 2nd line 07/08/16 10:45 08/07/16 10:44 Clopidogrel Bisulfate (Plavix) 75 mg DAILY GT 07/08/16 09:00 08/07/16 08:59 07/09/16 08:33 Collagenase (Santyl) 1 applic Q24H TOPIC 07/09/16 23:00 08/08/16 22:59 07/09/16 22:33 Daptomycin 500 mg/ Sodium Chloride 55 ml @ 110 mls/hr Q48H IV 07/07/16 19:00 07/14/16 18:59 07/09/16 19:33 Dextrose (Dextrose 50%) STAT PRN IV Hypoglycemia 07/08/16 14:30 08/07/16 14:29 Docusate Sodium (Colace) 100 mg TID NG 07/07/16 18:00 08/06/16 17:59 07/09/16 17:32 Enoxaparin Sodium (Lovenox) 80 mg Q24H SUBQ 07/09/16 22:00 08/08/16 21:59 07/09/16 22:23 Epoetin Mars (Procrit (for non ESRD use)) 7,000 units MON-WED-FRI SUBQ 07/07/16 21:00 08/06/16 20:59 07/09/16 22:21 Furosemide (Lasix) 40 mg DAILY IV 07/08/16 09:00 08/07/16 08:59 07/10/16 09:32 Insulin Aspart (NovoLOG) EVERY 6 HOURS SUBQ 07/07/16 18:00 08/06/16 17:59 07/10/16 11:50 Lactobacillus Acidophilus (Culturelle) 1 tab THREE TIMES A DAY GT 07/07/16 18:00 08/06/16 17:59 07/09/16 17:32 Lorazepam (Ativan 2mg/ml 1ml) 0.5 mg Q4H PRN IV For Anxiety 07/07/16 14:45 07/14/16 14:44 Meropenem/Sodium Chloride (Merrem/Sodium Chloride) 55 ml @ 110 mls/hr Q12HR IVPB 07/10/16 21:00 07/14/16 20:59 Micafungin Sodium/ Sodium Chloride (Mycamine/Sodium Chloride) 110 ml @ 110 mls/hr Q24H IVPB 07/08/16 11:00 07/15/16 10:59 07/09/16 11:43 Mineral Oil (Fleet's Mineral Oil Enema) 133 ml DAILYPRN PRN RECTAL Constipation 3rd Line 07/07/16 14:30 08/06/16 14:29 Mycophenolate Mofetil (Cellcept) 500 mg TWICE A DAY GT 07/07/16 18:00 08/06/16 17:59 07/09/16 17:32 Ondansetron HCl (Zofran) 4 mg Q6H PRN IVP Nausea & Vomiting 07/07/16 20:30 08/06/16 20:29 Pantoprazole (Protonix) 40 mg DAILY IVP 07/08/16 09:00 08/07/16 08:59 07/10/16 09:31 Polyethylene Glycol (Miralax) 17 gm DAILYPRN PRN GT Constipation 07/07/16 14:30 08/06/16 14:29 Sodium Hypochlorite (Dakin's Full Strength) 1 applic QPM@2300 TOPIC 07/08/16 23:00 08/07/16 22:59 07/09/16 22:33 Tacrolimus (Prograf) 0.5 mg Q12HR@ ORAL 07/07/16 20:00 08/06/16 19:59 07/09/16 19:07 Tacrolimus (Prograf) 1 mg Q12HR@0800,1999 ORAL 07/07/16 20:00 08/06/16 19:59 07/09/16 19:06 Valacyclovir HCl (Valtrex) 500 mg EVERY 12 HOURS NG 07/07/16 21:00 08/06/16 20:59 07/09/16 08:32 Vitamin A/Vitamin D (A & D Oint) 1 applic EVERY 12 HOURS TOPIC 07/07/16 21:00 08/06/16 20:59 07/09/16 21:00 Warfarin Sodium (Coumadin per pharmacy) 1 ea DAILY PRN MISC Per rx protocol 07/09/16 09:15 08/08/16 09:14 Zolpidem Tartrate (Ambien) 5 mg HSPRN PRN GT Insomnia 07/07/16 21:00 08/06/16 20:59 AMADO SCHULER Jul 10, 2016 12:44
[2016-07-10] MEDS ORDERED: Warfarin Sodium 5mg ORAL ONE (17:00)
--- NOTE | 2016-07-10 19:23 | General Progress Note ---
Assessment/Plan Assessment/Plan ASSESSMENT: 1. Left upper extremity deep venous thrombosis. I have reviewed the patient's imaging and the patient is clinically symptomatic at this time. He has a partially occlusive acute thrombus in the subclavian axis in the proximal and brachial veins within the upper arm. He had a PICC line in place on 06/25/2016 and 06/30/2016, a deep vein thrombosis at that time, unfortunately, this is not superficial femoral phlebitis, therefore the patient will in fact benefit from the use of Lovenox for a period of three months to prevent the risk of embolization as well as clot extension, which will increase his morbidity, mortality. 2. Anemia, which is secondary to chronic disease and inflammation as well as kidney disease. 3. Anemia secondary to kidney disease. 4. Sepsis. 5. Hypertention. 6. Decubitus ulcerations. 7. Chronic kidney disease. RECOMMENDATIONS: 1. Begin the patient on Lovenox. He will require a total of three months of Lovenox at least. 2. Start on anticoagulation. 3. Continue Plavix and aspirin per primary team. 4. The patient is currently not on aspirin, however, it may help to prevent recurrence of clots. 5. Continue Epogen given the renal disease. 6. GI prophylaxis with PPI. 7. Continue antibiotics as needed. 8. We will send for culture. 9. Consider arm elevation as well and PICC line has been removed and replaced on the right side. 10. May consider warm compress 11. Monitor closely swelling. 12. Discussed with staff. Margie Cota M.D. Subjective Constitutional: Reports: no symptoms HEENT: Reports: no symptoms Cardiovascular: Reports: no symptoms Respiratory: Reports: no symptoms Gastrointestinal/Abdominal: Reports: no symptoms Genitourinary: Reports: no symptoms Neurologic/Psychiatric: Reports: no symptoms Endocrine: Reports: no symptoms Hematologic/Lymphatic: Reports: no symptoms Allergies: Coded Allergies: ADHESIVE TAPE (Verified Allergy, Unknown, Rash, 05/27/16) PLASTIC TAPE-COPIED FROM UNCODED SECTION PENICILLINS (Verified Allergy, Unknown, 06/20/16) PROCAINE (Verified Allergy, Unknown, Rash, 08/19/14) COPIED FRON UNCODED Objective Last 24 Hour Vital Signs Date Time Temp Pulse Resp B/P Pulse Ox O2 Delivery O2 Flow Rate FiO2 07/10/16 12:00 97.7 88 18 126/74 99 Room Air 07/10/16 08:14 97.8 88 20 155/63 98 Room Air 07/10/16 07:40 97 Room Air 07/10/16 07:40 Room Air 07/10/16 04:00 99.3 91 19 139/71 97 Room Air 07/10/16 00:00 98.9 101 22 128/74 96 Room Air 07/09/16 20:35 96 Room Air 07/09/16 20:32 Room Air Intake and Output 07/09/16 07/10/16 18:59 06:59 Intake Total 460 ml 920 ml Output Total 350 ml 700 ml Balance 110 ml 220 ml Intake Oral 240 ml 920 ml IV Total 220 ml Output Urine Total 350 ml 700 ml # Bowel Movements 1 Laboratory Tests 07/10/16 04:55: Prothrombin Time 12.1H, Prothromb Time International Ratio 1.2H Height (Feet): 5 Height (Inches): 8.00 Weight (Pounds): 193 General Appearance: no apparent distress EENT: normal ENT inspection Neck: normal alignment Cardiovascular: normal rate Respiratory/Chest: lungs clear Abdomen: non tender Genitourinary/Rectal: normal rectal exam Extremities: normal inspection Edema: no edema noted Arm (L), no edema noted Arm (R), no edema noted Leg (L), no edema noted Leg (R), no edema noted Pedal (L), no edema noted Pedal (R), no edema noted Generalized Neurologic: abnormal gait Skin: warm/dry Lymphatic: normal anterior cervical (L), normal anterior cervical (R), normal axillary (L), normal axillary (R), normal inguinal (L), normal inguinal (R), normal other, normal posterior cervical (L), normal posterior cervical (R), normal submandibular (L), normal submandibular (R), normal supraclavicular (L), normal supraclavicular (R) MARGIE COTA Jul 10, 2016 19:23
[2016-07-10] MEDS ORDERED: Meropenem 500 MG in NS 55 ML IVPB SCH (21:00)
--- NOTE | 2016-07-13 14:48 | Discharge Summary ---
Discharge Summary Hospital Course Date of Admission Jun 17, 2016 at 19:58 Date of Discharge Jul 10, 2016 at 15:00 Admitting Diagnosis anemia NOHEMI Ralph is a 76 year old male who was admitted on Jun 17, 2016 at 19:58 for Anemia Hospital Course dc summary # [id number] Discharge Medications New Medications: Amlodipine Besylate (Norvasc) 2.5 Mg Tablet 2.5 MG ORAL BID PRN, #30 TAB use PRN only SBR above 155 Daptomycin (Cubicin Rf) 500 Mg Vial 500 MG IV EVERY OTHER DAY, #4 VIAL for 8 more days, dosing as per renal fucntion Q 48 hrs, need 4 more doses Enoxaparin* (Lovenox*) 40 Mg/0.4 Ml Inj 40 MG SUBQ Q12HR, #8 SYRKIT dc Lovenox when INR above 2 and continue Couamdin , check INR to keep in therapeutic range 2-3 Meropenem-0.9% Sodium Chloride (Meropenem-0.9% NaCl 1 Gram/50) 1 Gm/50 Ml Piggyback 500 MG IV Q12HR, #42 BAG for 21 days - 42 doses- dosing as per renal parameters Warfarin Sod* (Coumadin*) 5 Mg Tablet 5 MG ORAL DAILY, #5 TAB Continued Medications: Albuterol Sulfate (Ventolin Hfa) 18 Gm Hfa.aer.ad 2 PUFFS INH EVERY 6 HOURS PRN for Shortness of Breath, #18 GM 0 Refills Ascorbic Acid* (Ascorbic Acid*) 500 Mg Tab 500 MG ORAL TWICE A DAY, #60 TAB Aspirin (Aspirin EC) 81 Mg Tabec 81 MG ORAL DAILY, TAB Bisacodyl (Dulcolax) 10 Mg Supp.rect 10 MG RC PRN for Constipation, SUPP Clopidogrel Bisulfate* (Plavix*) 75 Mg Tablet 75 MG ORAL DAILY, TAB Duloxetine Hcl* (Cymbalta*) 30 Mg Capsule.dr 30 MG ORAL DAILY, CAP Epoetin Mars (Epogen) 20,000 Unit/2 Ml Vial 88208 UNIT SUBQ 2XW, VIAL Glyburide* (Diabeta*) 5 Mg Tablet 10 MG ORAL BIAC, #60 TAB 0 Refills Take with meals Insulin Glargine (Lantus) 5 Units Vial 26 SUBQ DA, #1 EA 0 Refills Insulin Glargine (Lantus) 100 Unit/1 Ml Insuln.pen 26 ML SUBQ BEDTIME for s, #1 EA 0 Refills Magnesium Amino Acid Chelate (Magnesium) 100 Mg Tablet 200 MG PO BID, TAB Methenamine Hippurate (Methenamine Hippurate) 1 Gm Tablet 10 MG PO BID, TAB Methenamine Hippurate (Hiprex) 1 Gm Tablet 1 GM PO BID, TAB Mirtazapine* (Mirtazapine*) 15 Mg Tablet 15 MG ORAL BEDTIME, TAB Multivitamins* (Multivitamins*) 1 Tab Tab 1 TAB ORAL DAILY, #30 TAB Mycophenolate Mofetil (Cellcept) 250 Mg Cap 500 MG ORAL BID, CAP Polyethylene Glycol 3350* (Miralax*) 17 Gm Pack 17 GM ORAL HSPRN PRN for Constipation, #30 PACK Pravastatin Sod* (Pravachol*) 20 Mg Tablet 20 MG ORAL BEDTIME, TAB Sitagliptin (Januvia) 50 Mg Tab 50 MG ORAL DAILY, TAB Sitagliptin* (Januvia*) 25 Mg Tablet 50 MG ORAL DAILY, TAB Tacrolimus (Prograf) 1 Mg Cap 1 MG ORAL BID, #10 CAP 0 Refills Zinc Sulfate (Zinc Sulfate*) 220 Mg Cap 220 MG ORAL DAILY, #30 CAP [Cyproheptadine Hcl] () 4 MG TAB 4 MG ORAL THREE TIMES A DAY, #90 TAB Discharge Condition Upon Discharge: stable Discharge Disposition Patient was discharged to Home with Home Health() Discharge Diagnoses: Winston (Bam)Alyssa NP Jul 13, 2016 14:48
[2016-07-13] MEDS ORDERED: COUMADIN5 MG ORAL (14:59)
[2016-07-13] MEDS ORDERED: LOVENOX10 M4 SUBQ (14:59)
[2016-07-13] MEDS ORDERED: MEROPENEM-1 GM/50 ML IV (14:59)
[2016-07-13] MEDS ORDERED: CUBICIN RF500 MG IV (14:59)
[2016-07-13] MEDS ORDERED: NORVASC2.5 MG ORAL (14:59)
--- NOTE | 2016-07-14 04:28 | Discharge Summary 2 SIG ---
DATE OF ADMISSION: 06/17/2016 DATE OF DISCHARGE: 07/10/2016 REASON FOR ADMISSION: 76-year-old male with multiple medical problems including history of heart transplant, diabetes, bilateral amputee, severe PVD, diabetes mellitus, presented to emergency department for evaluation due to abnormal laboratories, such as anemia, hyperkalemia, and renal failure. The patient had a blood drawn at home by home health nursing and found abnormal results, therefore he was sent for evaluation. The patient had a PICC line for treatment of osteomyelitis, which was being used by home health nursing for IV antibiotics. Upon presentation, potassium -6.3, BUN -83, and creatinine -3.8. The patient was given Kayexalate in the emergency department, given 1 liter of fluid, ordered blood transfusion and transferred to telemetry for further management. At the time of presentation, the patient denied chest pain, shortness of breath, palpitations, dizziness, no nausea, no vomiting, and no abdominal pain. Denied fever or chills. Denied urinary symptoms. No urinary burning. No flank pain. No difficulty with urination. Urinalysis revealed pyuria, but no bacteria. The patient was admitted for further management to telemetry. ADMITTING DIAGNOSES: 1. Acute renal failure. 2. Chronic kidney disease. 3. Hyperkalemia. 4. Acute anemia requiring transfusion. 5. Osteomyelitis, sacral decubitus. 6. Diabetes mellitus. 7. Coronary artery disease. 8. Status post heart transplant. 9. Severe peripheral vascular disease. 10. Bilateral amputee. HOSPITAL STAY: The patient initially was on the telemetry floor. ID, anchorer and architectural model maker were consulted. Per ID, the patient was restarted on antibiotic as at home for osteomyelitis. Sacral bone pathology and culture previously confirmed osteomyelitis. The patient needs treatment for a total of 6 weeks. Osteomyelitis due to the enterococcus faecalis, Pseudomonas, and E. coli. Blood culture initial and repeated were negative. The urine culture was negative. Upon discharge, the patient was discharged on IV antibiotics with home health care, meropenem for a total of 6 weeks, daptomycin for a total of four weeks, micafungin for a total of two weeks. Afebrile. No leukocytosis. The patient developed leukocytosis on the second day of admission, which resolved. For sacral decubitus, plastic surgeon had seen the patient and at that time, he concluded that the patient was unstable for surgical intervention. He recommended local wound care and offload the pressure ulcer. He also recommended, when discharged to continue with the wound clinic. Renal parameter were closely monitored. Bag Machine Operator followed the patient. The patient was on the IV fluids. Creatinine trending down, upon discharge- 2.7. BNP trending down from above 70,000 initially down to 22,393. Troponin was negative. Thyroid panel was stable. Elevated CRP. Tentering Machine Off Bearer was consulted in lieu of cardiac issues. Echocardiogram revealed preserved ejection fraction of 50% to 55%. Per architectural model maker, no need for antihypertensive medication. Prescription was given for Norvasc 2.5 mg b.i.d. as needed if systolic blood pressure above 155. Per architectural model maker, hypertension and tachycardia were likely due to volume depletion. Per architectural model maker, Prograf level was monitored and dosed. Tentering Machine Off Bearer concluded that acute renal failure was likely secondary to overuse of Benicar as well as hyperkalemia, educated family at no Benicar at home. The patient had anemia upon presentation and required blood transfusion. Anemia workup revealed low iron but high ferritin. Hemoglobin and hematocrit were stable prior to discharge. Noted mild elevation in CEA, but stool OB was negative. On 06/23/2016, the patient became obtunded. A rapid response team was called , and the patient was noted to be in respiratory acidosis. The patient required emergency intubation and transferred to ICU for further management. While in the ICU, the patient was followed up routinely with chest x-ray and ABG. The patient self-extubated himself and was placed on supplemental oxygen and pulmonary toilet provided as needed. Prior to discharge, the patient was on the room air. Pulse oximetry was stable. Acute respiratory failure requiring intubation was likely secondary to cardiac condition. Neurologist had seen the patient due to the altered level of consciousness. EEG was done, which revealed moderate encephalopathy but no focal slowing. No interictal phenomena. Mental status improving per neurologist. The patient did exhibit one single episode of seizure-like activity. No further seizure-like activities noted and no witness to describe that type of seizure like activity. Per neurologist, no need for antiseizure medication at this time, patient needs a close observation. Blood sugar was managed with sliding scale insulin, was stable. However, the patient has evidence of end-organ disease due to the diabetes including cardiac, renal, and peripheral vascular. The patient's anemia was likely secondary to chronic renal disease. The patient was on Epogen. Hemoglobin and hematocrit were closely monitored. After transfusion, hemoglobin and hematocrit remained stable. GI prophylaxis was provided with PPI. Due to left upper extremity edema, venous duplex left upper extremity was done and revealed acute DVT of left upper extremity. Agency Manager recommended anticoagulation. The patient on Lovenox and Coumadin.INR still subtherapeutic, Home health will be monitoring INR to bridge to the therapeutic INR between 2 and 3, then Lovenox will be discontinued and Coumadin will be continued. The patient was noted to have, on serology, HCV 1 DNA PCR positive. Per ID, the patient was placed on valacyclovir for a total of 10 days to be dosed as per renal function. Prior to discharge, the patient was stable. Mental status back to baseline. He was more awake, alert, and responsive. Blood pressure was stable. Pulse oximetry was stable on room air. Heart rate was stable. The patient was afebrile. No leukocytosis. Potassium was down to normal -4.4, creatinine down to 2.7, BUN down to 56. ProBNP is trending down to 2393. The patient was stable for discharge. DISCHARGE DIAGNOSES: 1. Sepsis. 2. Acute respiratory failure requiring intubation. 3. Status post self-extubation. 4. Acute renal failure/acute tubular necrosis on chronic kidney disease- improving. 5. Hyperkalemia secondary to renal failure-resolved 6. Anemia of chronic renal disease. 7. Status post blood transfusion. 8. Diabetes mellitus with end-organ disease. 9. Elevated CEA (stool OB negative). 10. Sacral decubitus, present on admission. 11. Osteomyelitis of sacral decubitus. 12. History of heart transplant. 13. Severe peripheral vascular disease. 14. Bilateral amputee. 15. Coronary artery disease. 16. Hypertension. 17. Left upper extremity acute deep vein thrombosis. 18. Moderate encephalopathy. 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 DISCHARGE MEDICATIONS: See medication reconciliation list. The patient will need intravenous antibiotic regimen as outlined by Infectious Diseases doctor to be followed by home health nursing. DISCHARGE INSTRUCTIONS: The patient will be discharged home. Follow up with the primary medical doctor. Home health to follow for IV antibiotic, wound care as well as the INR monitoring. The patient needs to be bridged to therapeutic INR and discontinue Lovenox afterwards. Sudarshan Hahn M.D. I have been assigned to dictate discharge summary on this account and I was not involved in the patient's management. Alyssa Saucedashruthi NYosefPYosef DR: JARRELL JOB#: [id number] CC: ALAN
--- NOTE | 2016-07-16 09:10 | Consultation ---
DATE OF CONSULTATION: 06/20/2016 CARDIOLOGY CONSULTATION REFERRING PHYSICIAN: Sudarshan Hahn M.D. REASON FOR REFERRAL: Status post heart transplantation. The patient admitted with hyperkalemia. HISTORY OF PRESENT ILLNESS: This is an elderly gentleman with heart transplantation at [facility] back many many years ago. The patient lives at home, basically he has become bedridden, does not move out of the house, basically mostly in the house, has not seen Dr. Bo, who is his usual rn cardiology for the transplant for some time now. He has been admitted to the hospital because an abnormality was noted by home health laboratories indicating a significant hyperkalemia and therefore the patient was sent to the emergency room at [facility] and was admitted because of that. His potassium was 6.3. He also had hemoglobin of 6.8 and BUN and creatinine of 83 and 3.86. He was given some Kayexalate and blood transfusion administered and one liter of fluid has been given. The patient was transferred to telemetry for further management. The patient is somewhat drowsy today according to the family members, his granddaughter and the daughter at bedside and he is really noncommunicative, unable to provide much meaningful history. According to them, he has had some low-grade temperature initially when he came into the emergency room here, otherwise he has not been running a fever. He has had no bowel movements. No diarrhea. No vomiting. PAST MEDICAL HISTORY: Positive for heart transplant, history of diabetes mellitus, femoral artery occlusion, hypothyroidism, nephrolithiasis, anemia, chronic renal insufficiency, creatinine baseline is usually 1.6, he has ischemic right leg, history of urinary tract infection, he has decubitus ulcers, osteoarthritis, osteomyelitis, bilateral foot ulcers status post amputation of the right, status post in 2011. He also has a history of spinal stenosis. MEDICATIONS: The patient takes Prograf 1 mg twice daily, CellCept 500 mg twice daily, magnesium 200 mg twice daily, Benicar he takes 40/12.5 once in the morning and 40 mg in the evening, Januvia 50 mg, aspirin 81 mg, Cymbalta 30 mg daily, glyburide 10 mg twice a day, vitamin C 500 mg twice daily, Hiprex 1 g twice daily, ferrous sulfate, albuterol, zinc sulfate 220 mg, Remeron 15 mg at bedtime, and Epogen 20,000 two times per week. It looks like he also takes Benicar additionally as needed. ALLERGIES: He is allergic to procaine, Venofer, adherent tape. SOCIAL HISTORY: He is . Lives with his . Denies any smoking at the least for the past 30 years. No alcohol and no drugs. REVIEW OF SYSTEMS: Gastrointestinal: The patient has not had a bowel movement. No vomiting. Genitourinary: Negative. Pulmonary: No coughing and no wheezing noted by the family but occasional shortness of breath. Constitutional: No chest pain or PND had been noted by the family. PHYSICAL EXAMINATION: GENERAL: Shows to be obese elderly gentleman, in no apparent respiratory distress. NECK: Supple. No jugular venous distention. HEART: Regular rhythm. NECK: Supple. LUNGS: Appear to be clear to auscultation and percussion. CARDIAC: Regular rhythm, mild tachycardia. No RV lift, heaves, or thrills noted. ABDOMEN: Obese. Positive bowel sounds. Nontender. Chest wall is tender to palpation. EXTREMITIES: Bilateral amputation of lower extremities. LABORATORY DATA: White count was 10.1 at the time of admission with hemoglobin 6.8, and platelet count of 301,000. Subsequently his white count was 9.5, hemoglobin got up to about 10.2, and right now is 8.7, platelet count of 263,000. His sodium is 138, potassium 6.0, chloride 104, bicarb of 11, BUN of 89, creatinine 2.8, glucose 180. Lactic acid of 1.1. His phosphorus is 5.5. ProBNP is greater than 17,000. Troponin was negative at the time of admission, less than 0.2. His CRP is 19.2. Coags, INR 1.0 and a PTT of 37. Urinalysis showed 20 to 30 WBCs, 5 to 10 RBCs, and 2+ leukocyte esterase. Blood cultures are negative at 24 hours. Urine cultures are negative at 48 hours. His chest x-ray performed on 06/19/2016 was read by the radiologist as no acute disease. He has had a renal ultrasound that shows negative for hydronephrosis, bilateral renal cysts, empty bladder with Barakat containing. EKG showed normal sinus rhythm, normal QRS axis, no ST or T wave abnormalities of any significance degree. ASSESSMENT AND PLAN: 1. Hyperkalemia. 2. Renal insufficiency, acute on chronic. 3. History of heart transplant. 4. Anemia. 5. Hypertension. 6. Peripheral vascular disease. 7. Diabetes mellitus. Dr. Hahn, this patient was seen in cardiac consultation. The patient is overusing Benicar it appears, in fact the family members confirmed, the patient's , Benicar is being given twice a day at 40 milligrams each tab but unfortunately maximum dose of Benicar is 40 mg and I suspect that may be contributing to his hyperkalemia, although probably is not the sole cause. Dr. Lentz is following him, would discontinue and discourage the use of Benicar as he has been using at home. In fact at this time, it may not be a good idea for him to be on Benicar as it has been removed already by Dr. Lentz from his medication regimen. In the future he may need to be treated with medication other than Benicar for his blood pressure as such as Norvasc. Prograf level will be ordered, not sure if he has had any checked recently and his usual medications otherwise will be continued. His creatinine clearance being less than 25, he may have an issue with taking this. He really needs to be seen by the transplant folks over at [facility]. I will leave a message for them regarding his laboratories to discuss those. Arnold Velázquez M.D. DR: Yasmine JOB#: [id number] CC:
--- NOTE | 2016-07-16 09:20 | Consultation ---
DATE OF CONSULTATION: 06/18/2016 INFECTIOUS DISEASES CONSULTATION CONSULTING PHYSICIAN: Jose Mott M.D. REQUESTING PHYSICIAN: Sudarshan Hahn M.D. REASON FOR CONSULTATION: Sacral osteomyelitis with large decubitus ulcer. Recommendations for antibiotics continuation while he is hospitalized. HISTORY OF PRESENT ILLNESS: The patient is a 76-year-old male status post heart transplantation who has chronic renal failure and hyperkalemia, who was recently admitted to [facility] for similar symptoms and abnormal labs since a couple of weeks and was monitored by the transplantation team for his renal failure and hyperkalemia. He had worsening sacral decubitus wound and ischial wounds while he was at [facility]. He was discharged to have followup with wound care clinic. I saw him in wound care clinic couple of weeks ago. He had worsening sacral decubitus wound, which is stage IV deep all the way to the bone and ischial wound which is about stage III. The patient had a bone biopsy that was sent for pathology, which showed evidence of acute osteomyelitis. His bone culture grew 2 stains of E. Coli and multidrug resistance pseudomonas aeruginosa and enterococcus faecalis, ampicillin sensitive. I started him on IV meropenem empirically after he had declined placement at [facility] with followup with home health care at home. Last night, the patient was found to have abnormal labs with creatinine of 3.8 and BUN of 83. Potassium is more than 6. So, he was sent to [facility] for evaluation and management of his abnormal labs and workup of anemia. I was consulted by the primary admitting team for continuation of his meropenem antibiotics, which I started him on as an outpatient. The patient does not have any blood stool or hematuria. This was confirmed with his and son over the phone, unclear with the source of his anemia at this point. Denied any abdominal pain, nausea, or vomiting. No fever or chills. No cough or shortness of breath. No headache or blurry vision. No sore throat or runny nose. PAST MEDICAL HISTORY: Significant for chronic kidney disease, peripheral vascular disease, diabetes with complication including nephropathy, chronic anemia, hyperkalemia, and heart transplant, on immunosuppressive therapy, and status post skin flap with recurrent sacral osteomyelitis. PAST SURGICAL HISTORY: The patient has multiple cervical debridement and biopsy from his sacrum by his plastic surgeon and heart transplantation. ALLERGIES: He is allergic to cocaine and adhesive tape. MEDICATIONS: Currently, he is on meropenem. For the rest of his medications, please refer to the MAR. SOCIAL HISTORY: The patient is disabled, amputee on both sides. Living with his and son. Speaks Tongan only. No recent drugs, tobacco, or alcohol. FAMILY HISTORY: Noncontributory. REVIEW OF SYSTEMS: A 12-point of system reviewed were all negative apart from the one I mentioned above in my History and Physical. PHYSICAL EXAMINATION: VITAL SIGNS: Temperature 97, pulse 85, respirations 20, blood pressure 104/79, and saturation 98% on room air. GENERAL: Obese male, Tongan speaker, up in bed with bilateral lower extremity amputation. Awake and alert, not in distress. HEENT: Normocephalic and atraumatic. Pupils both are reactive to light equally. Dry oral mucosa. No exudate. No jaundice. NECK: Supple. No lymphadenopathy. CARDIOVASCULAR: Regular rate and rhythm. No murmur or gallop. LUNGS: Clear bilaterally. No wheezing or rhonchi. Normal breathing sounds. ABDOMEN: Soft and distended. Nontender. No hepatosplenomegaly. Normal bowel sounds. EXTREMITIES: He had right [id number]-ryin amputation and left [id number] amputation. SKIN: He has large sacral decubitus wound, stage IV deep to the sacrum. He also had an ischial wound about stage III. LABORATORY AND DIAGNOSTIC DATA: White count of 8.8, hemoglobin 7.8, hematocrit of 25.8, and platelet count of 290,000. Sed rate of 125 and potassium of 6.2. BUN of 77 and creatinine of 3.7. Calcium of 8.5. AST of 14 and ALT of 15. Microbiology, his sacral bone culture grew 2 stains of E. Coli, Enterococcus faecalis, ampicillin sensitive, and pseudomonas aeruginosa. Multidrug resistant organism. Imaging, chest x-ray showed no acute process. Renal ultrasound was negative for hydronephrosis and bilateral renal cysts, empty bladder containing of Barakat catheter. ASSESSMENT AND PLAN: 1. Sacral decubitus ulcer stage IV with osteomyelitis due to poly organism including E. Coli pseudomonas and Enterococcus faecalis, ampicillin sensitive. We will continue meropenem treatment for osteomyelitis of the sacrum. Adjust the dose as per the GFR. Pharmacy is following his meropenem dose during hospitalization. Continue aggressive local wound care. Plastic surgery will be following during hospitalization. Recommend offloading all the time. 2. Hyperkalemia. Suspect due to chronic kidney disease. Renal is following. 3. Anemia. Unclear source of blood loss. Monitor H and H. Transfuse blood as needed. Consult GI. 4. Peripheral vascular disease. Amputation of both lower extremities, stable. 5. Chronic kidney disease. Avoid nephrotoxic medications. Monitor renal outputs and renal function. Nephrology is following. 6. Heart transplant condition. Continue transplantation medications. Adjust dosage as per his GFR. Pharmacy is following. Jose Mott M.D. DR: AUSTIN JOB#: [id number] CC: ALAN
== END 2016-07-10 15:00 | disposition home health service (06) | DRG 853 ==
LOC: ENRESERVTM → ENRESERVDT → EDBD 18:02 → EMR 18:30 → 2E 19:58 → EDBEDREQSVC 20:06 → EDBEDREQ 21:33 → 2E 22:57 → ICU 06-23 04:02 → 2E 07-03 14:06 → 4W 07-07 14:44
PROC: 30233N1 Transfusion of Nonautologous Red Blood Cells into Peripheral Vein, Percutaneous Approach (ICD-10-PCS; principal; 2016-06-17)
PROC: 5A1955Z Respiratory Ventilation, Greater than 96 Consecutive Hours (ICD-10-PCS; 2016-06-23)
PROC: 0BH17EZ Insertion of Endotracheal Airway into Trachea, Via Natural or Artificial Opening (ICD-10-PCS; 2016-06-23)
PROC: B548ZZA Ultrasonography of Superior Vena Cava, Guidance (ICD-10-PCS; 2016-06-25)
PROC: 02HV33Z Insertion of Infusion Device into Superior Vena Cava, Percutaneous Approach (ICD-10-PCS; 2016-06-25)
PROC: 0JB70ZZ Excision of Back Subcutaneous Tissue and Fascia, Open Approach (ICD-10-PCS; 2016-07-05)
DX: A41.9 Sepsis, unspecified organism (principal); N17.0 Acute kidney failure with tubular necrosis; J96.01 Acute respiratory failure with hypoxia; R65.21 Severe sepsis with septic shock; G92 Toxic encephalopathy; J18.9 Pneumonia, unspecified organism; L89.154 Pressure ulcer of sacral region, stage 4; L89.894 Pressure ulcer of other site, stage 4; E87.0 Hyperosmolality and hypernatremia; E11.21 Type 2 diabetes mellitus with diabetic nephropathy; I13.0 Hypertensive heart and chronic kidney disease with heart failure and stage 1 through stage 4 chronic kidney disease, or unspecified chronic kidney disease; E87.2 Acidosis; I82.622 Acute embolism and thrombosis of deep veins of left upper extremity; Z94.1 Heart transplant status; M86.8X8 Other osteomyelitis, other site; D63.1 Anemia in chronic kidney disease; E87.5 Hyperkalemia; I50.9 Heart failure, unspecified; I73.9 Peripheral vascular disease, unspecified; B96.5 Pseudomonas (aeruginosa) (mallei) (pseudomallei) as the cause of diseases classified elsewhere; B96.20 Unspecified Escherichia coli [E. coli] as the cause of diseases classified elsewhere; B96.89 Other specified bacterial agents as the cause of diseases classified elsewhere; E11.22 Type 2 diabetes mellitus with diabetic chronic kidney disease; N18.9 Chronic kidney disease, unspecified; Z79.4 Long term (current) use of insulin; Z89.612 Acquired absence of left leg above knee; Z89.611 Acquired absence of right leg above knee; T46.5X5A Adverse effect of other antihypertensive drugs, initial encounter; Y92.009 Unspecified place in unspecified non-institutional (private) residence as the place of occurrence of the external cause; B00.9 Herpesviral infection, unspecified; K59.00 Constipation, unspecified; R00.0 Tachycardia, unspecified; R56.9 Unspecified convulsions; R79.1 Abnormal coagulation profile; I25.2 Old myocardial infarction; Z86.14 Personal history of Methicillin resistant Staphylococcus aureus infection; E88.09 Other disorders of plasma-protein metabolism, not elsewhere classified; Z79.82 Long term (current) use of aspirin; Z88.0 Allergy status to penicillin; Z88.4 Allergy status to anesthetic agent; Z91.040 Latex allergy status
CPT/HCPCS: 36415; 36569; 36600; 71010; 74000; 74230; 76775; 76937; 80048; 80053; 80061; 81001; 82270; 82378; 82436; 82533; 82550; 82553; 82607; 82728; 82746; 82803; 82962; 82977; 83036; 83540; 83550; 83605; 83615; 83735; 83880; 83930; 83935; 84100; 84132; 84133; 84300; 84439; 84443; 84481; 84484; 84550; 85007; 85025; 85044; 85060; 85610; 85651; 85730; 86140; 86308; 86747; 86787; 86850; 86900; 86901; 86920; 87040; 87070; 87086; 87205; 87497; 89050; 93005; 93306; 93970; 94002; 94003; 94664; 94760; 95819; J1815; J2405

== ENCOUNTER 2016-07-19 12:10 | Outpatient (RCR) | payer MEDICARE, OTHER ==
[~2016-07-19] VITALS: Ht 167.6 cm; Wt 84.4 kg
[~2016-07-19 12:10] MED LIST changes: +BENICAR HCT 401 EACH ORAL; +COUMADIN5 MG ORAL; +CUBICIN RF500 MG IV; +DULCOLAX10 MG RC; +EPOGEN20000 UNI1 SUBQ; +FERROUS SULFAT325 MG ORAL; +HIPREX1 GM PO; +JANUVIA25 MG ORAL; +LOVENOX10 M4 SUBQ; +MEROPENEM-1 GM/50 ML IV; +MEROPENEM1 GM IV; +MIRTAZAPINE15 M3 ORAL; +NORVASC2.5 MG ORAL; +VENTOLIN HFA18 GM INH
--- NOTE | 2016-07-19 15:34 | Infectious Diseases Prog Note ---
Assessment/Plan Problems: (1) Sacral osteomyelitis Assessment & Plan: culture of the bone grew E.faecalis, E.coli, and Pseudomonas aeruginosa, has been on meropenem for 6 weeks , with significant improvement in his wounds , and good granulations. will D/C meropenem today and remove PICC line. discussed with Dr Huff who agreed on the plan . D/W family at the bedside (2) CKD (chronic kidney disease) Assessment & Plan: monitor renal function, avoid nephrotoxic meds, follow up with renal (3) Decubitus skin ulcer Assessment & Plan: on the buttocks, and sacrum, continue local wound care as per wound care clinic, with dressing changes, and off loading (4) Heart transplant status Assessment & Plan: continue transplant meds, follow up with heart transplant team at [facility] Subjective Constitutional: Denies: anorexia, chills, drenching sweats, fatigue, fever, no symptoms, other HEENT: Denies: congestion, coryza, dysphagia, hearing change, no symptoms, other, visual change Respiratory: Denies: dry cough, no symptoms, other, productive cough, shortness of breath Breasts: Denies: discharge, no symptoms, other, swelling, tenderness Cardiovascular: Denies: chest pain, dyspnea on exertion, no symptoms, other, palpitations Gastrointestinal/Abdominal: Denies: bloating, blood in stool, constipation, diarrhea, nausea, no symptoms, other, vomiting Genitourinary: Denies: dysuria, frequency, hematuria, no symptoms, nocturia, other Neurologic: Denies: confusion, headache, no symptoms, numbness, other, weakness Psychiatric: Denies: anxiety, depression, no symptoms, other Skin: Reports: ulcer Hematologic: Denies: bleeding, no symptoms, other, swollen lymph nodes Allergies: Coded Allergies: ADHESIVE TAPE (Verified Allergy, Unknown, Rash, 05/27/16) PLASTIC TAPE-COPIED FROM UNCODED SECTION PENICILLINS (Verified Allergy, Unknown, 06/20/16) PROCAINE (Verified Allergy, Unknown, Rash, 08/19/14) COPIED FRON UNCODED Subjective he was doing well, denied any symptoms at this visit, son and at the bedside Objective General Appearance: WD/WN, no acute distress HEENT: normocephalic, atraumatic, anicteric, mucous membranes moist, PERRL, pharynx normal, supple, no JVD Respiratory/Chest: chest wall non-tender, lungs clear, normal breath sounds, no respiratory distress, no accessory muscle use Cardiovascular: normal peripheral pulses, normal rate, regular rhythm, no gallop/murmur Abdomen: normal bowel sounds, soft, non tender, no organomegaly, non distended , no mass, no scars Extremities: no cyanosis, no clubbing Skin: no rash, no lesions, ulcers Jose Mott M.D. Jul 19, 2016 15:34
== END 2016-08-13 | disposition home or self-care (01) ==
LOC: WCC 12:10
DX: L89.224 Pressure ulcer of left hip, stage 4 (principal); L89.154 Pressure ulcer of sacral region, stage 4; L89.314 Pressure ulcer of right buttock, stage 4; L89.214 Pressure ulcer of right hip, stage 4; L89.894 Pressure ulcer of other site, stage 4; E11.9 Type 2 diabetes mellitus without complications; I73.9 Peripheral vascular disease, unspecified; Z94.1 Heart transplant status; Z89.612 Acquired absence of left leg above knee; Z79.82 Long term (current) use of aspirin; Z79.02 Long term (current) use of antithrombotics/antiplatelets; Z88.8 Allergy status to other drugs, medicaments and biological substances
CPT/HCPCS: 11042; 11043; 11044; 11046; 11047; 87070; 87181; 87205

== ENCOUNTER 2016-08-18 14:00 | Outpatient (RCR) | payer MEDICARE, OTHER ==
[~2016-08-18] VITALS: Ht 30.5 cm; Wt 0.5 kg
--- NOTE | 2016-08-18 17:34 | Infectious Diseases Prog Note ---
Assessment/Plan Problems: (1) UTI (lower urinary tract infection) Assessment & Plan: with dysuria, recommend urine culture before we start him on any empiric antibiotics therapy.and change mason catheter (2) Decubital ulcer Assessment & Plan: of the right hip with tissue necrosis, culture grew MDR pseudomonas aeruginosa spp, sensitive only to amikacin , polymyxin and colistin , all are nephrotoxic and he has advanced renal failure, we can't treat him at this point with these antibiotics, recommend surgical debridement and aggressive local wound care, and off loading, D/W son at the bed side who agreed on the plan , and the nurse sabiha. (3) Peripheral vascular disease of lower extremity with ulceration Assessment & Plan: follow up with vascular (4) Heart transplant status Assessment & Plan: continue transplant meds, follow up with the transplant team at [facility]. Subjective Constitutional: Reports: no symptoms HEENT: Reports: no symptoms Respiratory: Reports: no symptoms Cardiovascular: Reports: no symptoms Gastrointestinal/Abdominal: Reports: no symptoms Genitourinary: Reports: dysuria Neurologic: Reports: no symptoms Skin: Reports: ulcer Allergies: Coded Allergies: ADHESIVE TAPE (Verified Allergy, Unknown, Rash, 05/27/16) PLASTIC TAPE-COPIED FROM UNCODED SECTION PENICILLINS (Verified Allergy, Unknown, 06/20/16) PROCAINE (Verified Allergy, Unknown, Rash, 08/19/14) COPIED FRON UNCODED Objective General Appearance: WD/WN, no acute distress HEENT: normocephalic, atraumatic, anicteric, mucous membranes moist Respiratory/Chest: chest wall non-tender, lungs clear, normal breath sounds, no respiratory distress, no accessory muscle use Cardiovascular: normal peripheral pulses, normal rate, regular rhythm, no gallop/murmur Abdomen: normal bowel sounds, soft, non tender, no organomegaly, non distended , no mass Skin: ulcers - right hip two pressure wounds, first one with greenish necrotic tissue, and the next one has eschar on it Jose Mott M.D. Aug 18, 2016 17:34
== END 2016-09-12 | disposition home or self-care (01) ==
LOC: WCC 14:00
DX: L89.154 Pressure ulcer of sacral region, stage 4 (principal); L89.314 Pressure ulcer of right buttock, stage 4; L89.214 Pressure ulcer of right hip, stage 4; L89.894 Pressure ulcer of other site, stage 4; L89.224 Pressure ulcer of left hip, stage 4; Z87.891 Personal history of nicotine dependence; Z88.8 Allergy status to other drugs, medicaments and biological substances; E11.9 Type 2 diabetes mellitus without complications; I73.9 Peripheral vascular disease, unspecified; Z94.1 Heart transplant status; Z89.612 Acquired absence of left leg above knee; Z79.82 Long term (current) use of aspirin; Z79.02 Long term (current) use of antithrombotics/antiplatelets
CPT/HCPCS: 11043; 11046; 87070; 87181; 87205

== ENCOUNTER 2016-09-08 13:52 | Inpatient (IN) | payer MEDICARE, OTHER ==
[~2016-09-08] VITALS: Ht 152.4 cm; Wt 77.1 kg
[2016-09-08 14:12] VITALS: BP 140/64
[2016-09-08] MEDS ORDERED: Cefepime HCl 1 GM in NS 55 ML IV SCH (14:15)
[2016-09-08] MEDS ORDERED: Vancomycin 1 GM in NS 275 ML IV ONE (14:15)
[2016-09-08] MEDS ORDERED: Glucagon 1mg Inj IM ONE (14:15)
[2016-09-08] MEDS ORDERED: metroNIDAZOLE 500mg 100 ML IV SCH (14:15)
[2016-09-08] MEDS ORDERED: Vancomycin 1gm inj IVPB ONE (14:16)
[2016-09-08] MEDS ORDERED: Cefepime 1gm vial ONE (14:16)
--- NOTE | 2016-09-08 14:38 | Diagnostic Imaging Report ---
Indication: Chest pain Technique: One view of the chest Comparison: 07/05/2016 Findings: The lung and pleural space are clear. There is prior CABG. No significant change. Heart size is normal. Aorta is tortuous Impression: No acute process
[2016-09-08 15:00] LABS: BASOPHILS % (AUTO) 0.7 % (0.0-2.0); EOSINOPHILS % (AUTO) 2.5 % (0.0-3.0); LYMPHOCYTES % (AUTO) 10.3 % (20.0-45.0); MEAN CORPUSCULAR HEMOGLOBIN 27.4 PG (27.0-31.0); MEAN CORPUSCULAR HGB CONC 28.7 G/DL (32.0-36.0); MEAN CORPUSCULAR VOLUME 95 FL (80-99); MEAN PLATELET VOLUME 4.5 FL (6.5-10.1); MONOCYTES % (AUTO) 5.4 % (1.0-10.0); NEUTROPHILS % (AUTO) 81.1 % (45.0-75.0); PLATELET COUNT 456 K/UL (150-450); RED BLOOD COUNT 3.49 M/UL (4.70-6.10); RED CELL DISTRIBUTION WIDTH 18.1 % (11.6-14.8); WHITE BLOOD COUNT 9.8 K/UL (4.8-10.8)
[2016-09-08 15:10] LABS: TROPONIN I < 0.30 ng/mL (<=0.30)
--- NOTE | 2016-09-08 15:10 | Emergency Room Report ---
History of Present Illness General Chief Complaint: Altered Level of Consciousness Source: Family Member Present Illness HPI The patient presents from the wound care center. Apparently he became shaky and altered. This is associated with a low blood sugar. They brought him over to the emergency department. The patient has a history of diabetes but has not taken any insulin today. He apparently ate well in the morning. No NVD. He has a mason. He has decubiti. Recent admission at [facility] for 5 days. Thee has been some renal insufficiency. Patient unable to give history. Allergies: Coded Allergies: ADHESIVE TAPE (Verified Allergy, Unknown, Rash, 05/27/16) PLASTIC TAPE-COPIED FROM UNCODED SECTION PENICILLINS (Verified Allergy, Unknown, 06/20/16) PROCAINE (Verified Allergy, Unknown, Rash, 08/19/14) COPIED FRON UNCODED Patient History Limited by: medical condition Past Medical History: see triage record Past Surgical History: other - aka, bka, heart transplant Social History Narrative with family Reviewed Nursing Documentation: PMH: Agreed, PSxH: Agreed Nursing Documentation-PMH Hx Cardiac Problems: Yes - HEART TRANSPLANT, MULTIPLE BIPASS, DOUBLE AMPUTEE Hx Hypertension: Yes 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 Hx Asthma: Yes Hx Diabetes: Yes Hx Cancer: No Hx Gastrointestinal Problems: Yes Hx Neurological Problems: Yes Hx Weakness: Yes Hx Fatigue: Yes Review of Systems All Other Systems: limited Physical Exam Vital Signs Date Time Temp Pulse Resp B/P Pulse Ox O2 Delivery O2 Flow Rate FiO2 09/08/16 13:59 96.4 94 16 140/64 100 Room Air Sp02 EP Interpretation: reviewed, normal General Appearance: alert, Chronically Ill Head: normocephalic Eyes: bilateral eye PERRL, bilateral eye normal inspection ENT: moist mucus membranes Neck: supple Respiratory: lungs clear, normal breath sounds Cardiovascular #1: regular rate, rhythm Cardiovascular #2: 2+ radial (R) Gastrointestinal: normal inspection, normal bowel sounds, non tender, no mass, non-distended Genitourinary: other - mason Musculoskeletal: other - BKA R and AKA L Neurologic: alert, responsive, oriented - X2 Psychiatric: depressed affect Skin: other - sallow Medical Decision Making Diagnostic Impression: Primary Impression: Hypoglycemia Additional Impressions: Renal failure Hyperkaluria Decubital ulcer Qualified Codes: L89.304 - Pressure ulcer of unspecified buttock, stage 4 ER Course Patient presents with hypoglycemia. Differential includes insulin excess, sepsis, other occult infection, likely abnormalities including renal dysfunction. The patient is chronically ill but somewhat improved after glucagon. Emergent evaluation his blood cultures, lactate and other labs. Additionally we need to exclude and myocardial infarction and an EKG is performed. A chest x-ray is also performed. The patient is alert after D50 and glucagon. He states he wants to go home. His labs are significant for a potassium of 7 and renal failure. The patient is treated for hyperkalemia at this time. Also antibiotics have been started. Apparently, diarrhea caused by Kayexalate in past - refused due to worry about irritation of decub. When notified of possibility of dialysis, family state patient might refuse. Admit telemetry, Dr. Hahn. Laboratory Tests Test 09/08/16 14:30 09/08/16 16:40 White Blood Count 9.8 K/UL (4.8-10.8) Red Blood Count 3.49 M/UL (4.70-6.10) L Hemoglobin 9.6 G/DL (14.2-18.0) L Hematocrit 33.3 % (42.0-52.0) L Mean Corpuscular Volume 95 FL (80-99) Mean Corpuscular Hemoglobin 27.4 PG (27.0-31.0) Mean Corpuscular Hemoglobin Concent 28.7 G/DL (32.0-36.0) L Red Cell Distribution Width 18.1 % (11.6-14.8) H Platelet Count 456 K/UL (150-450) H Mean Platelet Volume 4.5 FL (6.5-10.1) L Neutrophils (%) (Auto) 81.1 % (45.0-75.0) H Lymphocytes (%) (Auto) 10.3 % (20.0-45.0) L Monocytes (%) (Auto) 5.4 % (1.0-10.0) Eosinophils (%) (Auto) 2.5 % (0.0-3.0) Basophils (%) (Auto) 0.7 % (0.0-2.0) Prothrombin Time 10.2 SEC (9.30-11.50) Prothrombin Time INR 1.0 (0.9-1.1) PTT 40 SEC (23-33) H Sodium Level 136 mEQ/L (135-145) Potassium Level 7.0 mEQ/L (3.4-4.9) *H Chloride Level 102 mEQ/L (98-107) Carbon Dioxide Level 16 mEQ/L (20-30) L Anion Gap 18 (5-15) H Blood Urea Nitrogen 42 mg/dL (7-23) H Creatinine 3.1 mg/dL (0.7-1.2) H Estimate Glomerular Filtration Rate mL/min (>60) Glucose Level 138 mg/dL (74-106) H Plasma/Serum Osmolality Pending Lactic Acid Level 1.90 mmol/L (0.66-2.22) Uric Acid 4.4 mg/dL (3.0-7.5) Calcium Level 8.7 mg/dL (8.6-10.2) Phosphorus Level 2.8 mg/dL (2.5-4.8) Magnesium Level 2.0 mg/dL (1.7-2.5) Total Bilirubin < 0.2 mg/dL (0.0-1.2) Aspartate Amino Transferase (AST) 6 U/L (5-40) Alanine Aminotransferase (ALT) 6 U/L (3-41) Alkaline Phosphatase 115 U/L (40-129) Total Creatine Kinase 15 U/L (38-174) L Troponin I < 0.30 ng/mL (<=0.30) Pro-B-Type Natriuretic Peptide 1310 pg/mL (0-450) H Total Protein 6.1 g/dL (6.6-8.7) L Albumin 2.6 g/dL (3.5-5.2) L Globulin 3.5 g/dL Albumin/Globulin Ratio 0.7 (1.0-2.7) L Free Thyroxine 1.05 ng/dL (0.86-1.85) Free Triiodothyronine Pending Cortisol Pending Urine Color Pale yellow Urine Appearance Slightly cloudy Urine pH 5 (4.5-8.0) Urine Specific [place] 1.010 (1.005-1.035) Urine Protein 2+ (NEGATIVE) H Urine Glucose (UA) 1+ (NEGATIVE) H Urine Ketones Negative (NEGATIVE) Urine Occult Blood 2+ (NEGATIVE) H Urine Nitrite Negative (NEGATIVE) Urine Bilirubin Negative (NEGATIVE) Urine Urobilinogen Normal MG/DL (0.0-1.0) Urine Leukocyte Esterase 2+ (NEGATIVE) H Urine RBC 2-4 /HPF (0 - 0) H Urine WBC Tntc /HPF (0 - 0) H Urine Squamous Epithelial Cells Occasional /LPF Urine Bacteria Many /HPF (NONE) H Urine Eosinophils Occassional seen Urine Osmolality Pending Urine Random Sodium 109 mmol/L Urine Random Chloride 94 mmol/L Urine Potassium Timed 25 mmol/L EKG Diagnostic Results Rate: normal Rhythm: NSR ST Segments: no acute changes Rhythm Strip Diag. Results EP Interpretation: yes Rhythm: NSR, no PVC's, no ectopy Chest X-Ray Diagnostic Results EP Interpretation: Yes Findings: no consolidation, no effusion, no pneumothorax, no acute cardiopulmonary disease, other - old CABG Number of Views: 1 Last Vital Signs Date Time Temp Pulse Resp B/P Pulse Ox O2 Delivery O2 Flow Rate FiO2 09/08/16 14:12 16 140/64 100 Room Air 09/08/16 13:59 96.4 94 Status: improved Disposition: ADMITTED INPATIENT Condition: Serious Referrals: SHWETA SARKAR MD (PCP) Mendel Tubbs M.D. Sep 08, 2016 15:10
[2016-09-08 15:13] LABS: ALANINE AMINOTRANSFERASE 6 U/L (3-41); ALBUMIN/GLOBULIN RATIO 0.7 (1.0-2.7); ANION GAP 18 (5-15); ASPARTATE AMINO TRANSFERASE 6 U/L (5-40); CALCIUM 8.7 mg/dL (8.6-10.2); CARBON DIOXIDE 16 mEQ/L (20-30); CHLORIDE 102 mEQ/L (98-107); CREATININE 3.1 mg/dL (0.7-1.2); HEMOLYSIS 3; SODIUM 136 mEQ/L (135-145); TOTAL PROTEIN 6.1 g/dL (6.6-8.7)
[2016-09-08 15:14] LABS: PROTHROMBIN TIME 10.2 SEC (9.30-11.50)
[2016-09-08] MEDS: Sodium Polystyrene Sulfonate 15gm Powder ORAL ONE ×2 (15:30→15:44)
[2016-09-08] MEDS ORDERED: Calcium Gluconate 1gm/10ml vial IVP ONE (15:30)
[2016-09-08] MEDS ORDERED: Morphine Sulfate 2mg/ml Inj IVP PRN (15:45)
[2016-09-08] MEDS ORDERED: Mylanta II UD 30ml ORAL PRN (15:45)
[2016-09-08] MEDS ORDERED: DuoNeb 0.5-3(2.5)mg/3ml neb HHN PRN (15:45)
[2016-09-08 16:15] VITALS: BP 120/61
[2016-09-08 17:09] LABS: APPEARANCE,URINE SLIGHTLY CLOUDY; KETONES,URINE NEGATIVE (NEGATIVE); LEUKOCYTE ESTERASE ,URINE 2+ (NEGATIVE); NITRITE,URINE NEGATIVE (NEGATIVE); PH,URINE 5 (4.5-8.0); PROTEIN,URINE 2+ (NEGATIVE); UROBILINOGEN,URINE NORMAL MG/DL (0.0-1.0)
[2016-09-08 17:17] VITALS: BP 120/63
[2016-09-08 17:33] LABS: BACTERIA,URINE MANY /HPF; SQUAMOUS EPITHELIAL CELL,UR OCCASIONAL /LPF (NONE/OCC); WBC,URINE TNTC /HPF (0 - 0)
[2016-09-08] MEDS: Mycophenolate 250mg cap ORAL SCH (19:01)
[2016-09-08 20:00] VITALS: BP 125/63
[2016-09-08 20:54] LABS: PHOSPHORUS 2.8 mg/dL (2.5-4.8); URIC ACID 4.4 mg/dL (3.0-7.5)
[2016-09-08] MEDS ORDERED: Miralax 17gm pkt ORAL PRN (21:00)
[2016-09-08] MEDS: NovoLOG Insulin Flexpen SUBQ SCH (21:00)
[2016-09-08] MEDS ORDERED: Zolpidem 5mg tab ORAL PRN (21:00)
[2016-09-08] MEDS: Heparin 5000 units/ml inj SUBQ SCH (21:00)
--- NOTE | 2016-09-08 22:07 | History and Physical ---
History of Present Illness General Date patient seen: Sep 08, 2016 Reason for Hospitalization: Altered Level of Consciousness Present Illness HPI 76 year old patient with extensive PMHx including heart transplant, decubiti, osteomyelitis, presented from [facility] for altered mental status with a low blood sugar. The patient has a history of diabetes but has not taken any insulin today. He was found to be in renal failure and having hyperkalemia and admitted to telemetry for further treatment. Allergies: Coded Allergies: ADHESIVE TAPE (Verified Allergy, Unknown, Rash, 05/27/16) PLASTIC TAPE-COPIED FROM UNCODED SECTION PENICILLINS (Verified Allergy, Unknown, 06/20/16) PROCAINE (Verified Allergy, Unknown, Rash, 08/19/14) COPIED FRON UNCODED Medication History Scheduled Ascorbic Acid* (Ascorbic Acid*), 500 MG ORAL TWICE A DAY Aspirin (Aspirin EC), 81 MG ORAL DAILY, (Reported) Clopidogrel Bisulfate* (Plavix*), 75 MG ORAL DAILY, (Reported) Daptomycin (Cubicin Rf), 500 MG IV EVERY OTHER DAY Duloxetine Hcl* (Cymbalta*), 30 MG ORAL DAILY, (Reported) Enoxaparin* (Lovenox*), 40 MG SUBQ Q12HR Epoetin Mars (Epogen), 20,000 UNIT SUBQ 2XW, (Reported) Glyburide* (Diabeta*), 10 MG ORAL BIAC, (Reported) Insulin Glargine (Lantus), 26 SUBQ DA, (Reported) Insulin Glargine (Lantus), 26 ML SUBQ BEDTIME, (Reported) Magnesium Amino Acid Chelate (Magnesium), 200 MG PO BID, (Reported) Meropenem-0.9% Sodium Chloride (Meropenem-0.9% NaCl 1 Gram/50), 500 MG IV Q12HR Methenamine Hippurate (Methenamine Hippurate), 10 MG PO BID, (Reported) Methenamine Hippurate (Hiprex), 1 GM PO BID, (Reported) Mirtazapine* (Mirtazapine*), 15 MG ORAL BEDTIME, (Reported) Multivitamins* (Multivitamins*), 1 TAB ORAL DAILY Mycophenolate Mofetil (Cellcept), 500 MG ORAL BID, (Reported) Pravastatin Sod* (Pravachol*), 20 MG ORAL BEDTIME, (Reported) Sitagliptin (Januvia), 50 MG ORAL DAILY, (Reported) Sitagliptin* (Januvia*), 50 MG ORAL DAILY, (Reported) Tacrolimus (Prograf), 1 MG ORAL BID, (Reported) Warfarin Sod* (Coumadin*), 5 MG ORAL DAILY Zinc Sulfate (Zinc Sulfate*), 220 MG ORAL DAILY [Cyproheptadine Hcl], 4 MG ORAL THREE TIMES A DAY Scheduled PRN Albuterol Sulfate (Ventolin Hfa), 2 PUFFS INH EVERY 6 HOURS PRN for Shortness of Breath, (Reported) Amlodipine Besylate (Norvasc), 2.5 MG ORAL BID PRN Bisacodyl (Dulcolax), 10 MG RC for Constipation, (Reported) Polyethylene Glycol 3350* (Miralax*), 17 GM ORAL HSPRN PRN for Constipation Patient History Healthcare decision maker Resuscitation status Full Code Advanced Directive on File Past Medical/Surgical History Past Medical/Surgical History: (1) Heart transplant status (2) Status post skin flap graft (3) Decubital ulcer (4) Decubitus ulcer of buttock, stage 4 Review of Systems All Other Systems: negative except mentioned in HPI Physical Exam General Appearance: WD/WN, no apparent distress Lines, tubes and drains: peripheral, central line HEENT: normocephalic, atraumatic, anicteric Neck: non-tender, normal alignment Respiratory/Chest: chest wall non-tender, lungs clear Cardiovascular/Chest: normal peripheral pulses Last 24 Hour Vital Signs Date Time Temp Pulse Resp B/P Pulse Ox O2 Delivery O2 Flow Rate FiO2 09/08/16 20:00 97.9 90 21 125/63 97 Room Air 09/08/16 17:17 96.8 90 20 120/63 97 Room Air 09/08/16 16:44 96.4 89 16 120/61 100 Room Air 09/08/16 16:15 89 16 120/61 100 Room Air 09/08/16 14:12 16 140/64 100 Room Air 09/08/16 13:59 96.4 94 16 140/64 100 Room Air Laboratory Tests Test 09/08/16 14:30 09/08/16 16:40 White Blood Count 9.8 K/UL (4.8-10.8) Red Blood Count 3.49 M/UL (4.70-6.10) L Hemoglobin 9.6 G/DL (14.2-18.0) L Hematocrit 33.3 % (42.0-52.0) L Mean Corpuscular Volume 95 FL (80-99) Mean Corpuscular Hemoglobin 27.4 PG (27.0-31.0) Mean Corpuscular Hemoglobin Concent 28.7 G/DL (32.0-36.0) L Red Cell Distribution Width 18.1 % (11.6-14.8) H Platelet Count 456 K/UL (150-450) H Mean Platelet Volume 4.5 FL (6.5-10.1) L Neutrophils (%) (Auto) 81.1 % (45.0-75.0) H Lymphocytes (%) (Auto) 10.3 % (20.0-45.0) L Monocytes (%) (Auto) 5.4 % (1.0-10.0) Eosinophils (%) (Auto) 2.5 % (0.0-3.0) Basophils (%) (Auto) 0.7 % (0.0-2.0) Prothrombin Time 10.2 SEC (9.30-11.50) Prothromb Time International Ratio 1.0 (0.9-1.1) Activated Partial Thromboplast Time 40 SEC (23-33) H Sodium Level 136 mEQ/L (135-145) Potassium Level 7.0 mEQ/L (3.4-4.9) *H Chloride Level 102 mEQ/L (98-107) Carbon Dioxide Level 16 mEQ/L (20-30) L Anion Gap 18 (5-15) H Blood Urea Nitrogen 42 mg/dL (7-23) H Creatinine 3.1 mg/dL (0.7-1.2) H Estimat Glomerular Filtration Rate mL/min (>60) Glucose Level 138 mg/dL (74-106) H Plasma/Serum Osmolality Pending Lactic Acid Level 1.90 mmol/L (0.66-2.22) Uric Acid 4.4 mg/dL (3.0-7.5) Calcium Level 8.7 mg/dL (8.6-10.2) Phosphorus Level 2.8 mg/dL (2.5-4.8) Magnesium Level 2.0 mg/dL (1.7-2.5) Total Bilirubin < 0.2 mg/dL (0.0-1.2) Aspartate Amino Transf (AST/SGOT) 6 U/L (5-40) Alanine Aminotransferase (ALT/SGPT) 6 U/L (3-41) Alkaline Phosphatase 115 U/L (40-129) Total Creatine Kinase 15 U/L (38-174) L Troponin I < 0.30 ng/mL (<=0.30) Pro-B-Type Natriuretic Peptide 1310 pg/mL (0-450) H Total Protein 6.1 g/dL (6.6-8.7) L Albumin 2.6 g/dL (3.5-5.2) L Globulin 3.5 g/dL Albumin/Globulin Ratio 0.7 (1.0-2.7) L Free Thyroxine 1.05 ng/dL (0.86-1.85) Free Triiodothyronine Pending Cortisol Pending Urine Color Pale yellow Urine Appearance Slightly cloudy Urine pH 5 (4.5-8.0) Urine Specific [place] 1.010 (1.005-1.035) Urine Protein 2+ (NEGATIVE) H Urine Glucose (UA) 1+ (NEGATIVE) H Urine Ketones Negative (NEGATIVE) Urine Occult Blood 2+ (NEGATIVE) H Urine Nitrite Negative (NEGATIVE) Urine Bilirubin Negative (NEGATIVE) Urine Urobilinogen Normal MG/DL (0.0-1.0) Urine Leukocyte Esterase 2+ (NEGATIVE) H Urine RBC 2-4 /HPF (0 - 0) H Urine WBC Tntc /HPF (0 - 0) H Urine Squamous Epithelial Cells Occasional /LPF Urine Bacteria Many /HPF (NONE) H Urine Eosinophils Occassional seen Urine Osmolality Pending Urine Random Sodium 109 mmol/L Urine Random Chloride 94 mmol/L Urine Potassium Timed 25 mmol/L Height (Feet): 5 Height (Inches): 0.00 Weight (Pounds): 170 Medications Current Medications Medications (Trade) Dose Ordered Sig/Koffi Route PRN Reason Start Time Stop Time Status Last Admin Dose Admin Acetaminophen (Tylenol) 650 mg Q4H PRN ORAL T>100.5 09/08/16 15:45 10/08/16 15:44 Al Hydroxide/Mg Hydroxide (Mylanta II) 30 ml Q6H PRN ORAL dyspepsia 09/08/16 15:45 10/08/16 15:44 Albuterol/ Ipratropium (DuoNeb 0.5-3(2.5)mg/3ml) 3 ml Q6H PRN HHN dyspnea 09/08/16 15:45 09/13/16 15:44 Amlodipine Besylate (Norvasc) 2.5 mg BIDPRN PRN ORAL SBP > 160 09/08/16 15:45 10/08/16 15:44 Clonidine HCl (Catapres) 0.1 mg Q4H PRN ORAL SBP>180 09/08/16 18:17 10/08/16 15:44 Clopidogrel Bisulfate (Plavix) 75 mg DAILY ORAL 09/09/16 09:00 10/09/16 08:59 Dextrose (Dextrose 50%) STAT PRN IV Hypoglycemia 09/08/16 15:45 10/08/16 15:44 Duloxetine HCl (Cymbalta) 30 mg DAILY ORAL 09/09/16 09:00 10/09/16 08:59 Furosemide (Lasix) 100 mg Q8H PRN IV dyspnea 09/08/16 15:45 10/08/16 15:44 Heparin Sodium (Porcine) (Heparin 5000 units/ml) 5,000 units EVERY 12 HOURS SUBQ 09/08/16 21:00 10/08/16 20:59 09/08/16 21:00 Insulin Aspart (NovoLOG) BEFORE MEALS AND HS SUBQ 09/08/16 21:00 10/08/16 20:59 Mirtazapine (Remeron) 15 mg BEDTIME ORAL 09/08/16 21:00 10/08/16 20:59 Morphine Sulfate (Morphine Sulfate) 1 mg Q4H PRN IVP PAIN 4-10 09/08/16 15:45 09/15/16 15:44 Mycophenolate Mofetil (Cellcept) 500 mg BID ORAL 09/08/16 18:00 10/08/16 17:59 09/08/16 19:01 Ondansetron HCl (Zofran) 4 mg Q6H PRN IVP Nausea & Vomiting 09/08/16 15:45 10/08/16 15:44 Polyethylene Glycol (Miralax) 17 gm HSPRN PRN ORAL Constipation 09/08/16 21:00 10/08/16 20:59 Pravastatin Sodium (Pravachol) 20 mg BEDTIME ORAL 09/08/16 21:00 10/08/16 20:59 09/08/16 21:00 Tacrolimus (Prograf) 1 mg BID ORAL 09/08/16 18:00 10/08/16 17:59 09/08/16 19:01 Zolpidem Tartrate (Ambien) 5 mg HSPRN PRN ORAL Insomnia 09/08/16 21:00 10/08/16 20:59 Assessment/Plan Problem List: (1) Acute encephalopathy ICD Codes: G93.40 - Encephalopathy, unspecified SNOMED: 1701608 (2) ATN (acute tubular necrosis) ICD Codes: N17.0 - Acute kidney failure with tubular necrosis SNOMED: 45250951 (3) Hypoglycemia ICD Codes: E16.2 - Hypoglycemia, unspecified SNOMED: 108142051 (4) Hyperkalemia ICD Codes: E87.5 - Hyperkalemia SNOMED: 98881360 (5) Severe anemia ICD Codes: D64.9 - Anemia, unspecified SNOMED: 621769799 (6) Decubitus ulcer of buttock, stage 4 ICD Codes: L89.304 - Pressure ulcer of unspecified buttock, stage 4 SNOMED: 795149661, 779858150 (7) UTI (lower urinary tract infection) ICD Codes: N39.0 - UTI (lower urinary tract infection) SNOMED: 0568043 (8) Heart transplant status ICD Codes: Z94.1 - Heart transplant status SNOMED: 29673619, 98669065, 771055499, 072629583 Assessment/Plan iv fluids renal evaluation repeat K again in am quiroga cultures IV antibiotics dvt prophylaxis AMADO SCHULER Sep 08, 2016 22:07
[2016-09-09] VITALS: BP 105/58
[2016-09-09 04:00] VITALS: BP 107/65
[2016-09-09] MEDS: NovoLOG Insulin Flexpen SUBQ SCH ×4 (06:30→21:00)
[2016-09-09 07:31] LABS: MEAN CORPUSCULAR HEMOGLOBIN 27.6 PG (27.0-31.0); MEAN CORPUSCULAR HGB CONC 29.2 G/DL (32.0-36.0); MEAN CORPUSCULAR VOLUME 94 FL (80-99); MEAN PLATELET VOLUME 4.7 FL (6.5-10.1); PLATELET COUNT 355 K/UL (150-450); RED BLOOD COUNT 2.97 M/UL (4.70-6.10); RED CELL DISTRIBUTION WIDTH 17.7 % (11.6-14.8); WHITE BLOOD COUNT 5.8 K/UL (4.8-10.8)
[2016-09-09 07:35] LABS: ALANINE AMINOTRANSFERASE 5 U/L (3-41); ALBUMIN/GLOBULIN RATIO 0.6 (1.0-2.7); ANION GAP 17 (5-15); ASPARTATE AMINO TRANSFERASE < 5 U/L (5-40); CALCIUM 8.2 mg/dL (8.6-10.2); CARBON DIOXIDE 15 mEQ/L (20-30); CHLORIDE 108 mEQ/L (98-107); CHOLESTEROL 67 mg/dL (< 200); CHOLESTEROL/HDL RATIO 2.2 (3.3-4.4); HEMOLYSIS 2; LDL CHOLESTEROL (CALC.) 17 mg/dL (60-99); SODIUM 140 mEQ/L (135-145); TOTAL PROTEIN 5.3 g/dL (6.6-8.7)
[2016-09-09 07:36] LABS: POTASSIUM 6.4 mEQ/L (3.4-4.9)
[2016-09-09 07:45] LABS: HEMOGLOBIN A1C 4.8 % (< 6.0)
[2016-09-09] MEDS: DULoxetine 30mg cap ORAL SCH (08:15)
[2016-09-09] MEDS: Mycophenolate 250mg cap ORAL SCH ×2 (08:15→17:18)
[2016-09-09] MEDS: Heparin 5000 units/ml inj SUBQ SCH ×2 (08:17→21:00)
[2016-09-09 08:49] VITALS: BP 117/61
[2016-09-09] MEDS ORDERED: Sodium Polystyrene Sulfonate 15gm Powder ORAL ONE (09:30)
[2016-09-09 09:45] LABS: EOSINOPHILS % (MANUAL) 5 % (0-3); LYMPHOCYTES % (MANUAL) 14 % (20-45); NEUTROPHILS % (MANUAL) 71 % (45-75); TOTAL CELLS COUNTED 100
[2016-09-09 09:46] LABS: ANISOCYTOSIS 1+; BAND NEUTROPHILS % (MANUAL) 0 % (0-8); BASOPHILS % (MANUAL) 0 % (0-2); HYPOCHROMASIA 1+; PLATELET ESTIMATE ADEQUATE; PLATELET MORPHOLOGY NORMAL
--- NOTE | 2016-09-09 11:32 | Diagnostic Imaging Report ---
Indication: Elevated renal function tests Technique: Grayscale and duplex images of the kidneys, retroperitoneum, and bladder were obtained. Comparison:06/18/2016 Findings: Right kidney measures 12 cm in length. Left kidney measures cm in length. Both kidneys demonstrate increased echogenicity. This is more striking than on the previous study.. No hydronephrosis. There are multiple renal cysts again noted bilaterally. Normal inferior vena cava. Bladder is empty, contains a Barakat catheter. Impression: Bilateral increased renal echogenicity, more striking than on previous study of 06/18/2016, likely indicating medical renal disease Negative for hydronephrosis Bilateral renal cysts, also previously described Empty bladder containing Barakat catheter.
--- NOTE | 2016-09-09 11:36 | Pulmonology Progress Note ---
Assessment/Plan Problems: (1) Acute encephalopathy (2) ATN (acute tubular necrosis) (3) Hypoglycemia (4) Hyperkalemia (5) Severe anemia (6) Decubitus ulcer of buttock, stage 4 (7) UTI (lower urinary tract infection) (8) Heart transplant status Assessment/Plan K slightly better wound care consult check electrolytes ID evaluation quiroga culture Subjective ROS Limited/Unobtainable: No Constitutional: Reports: no symptoms HEENT: Repors: no symptoms Respiratory: Reports: no symptoms Allergies: Coded Allergies: ADHESIVE TAPE (Verified Allergy, Unknown, Rash, 05/27/16) PLASTIC TAPE-COPIED FROM UNCODED SECTION PENICILLINS (Verified Allergy, Unknown, 06/20/16) PROCAINE (Verified Allergy, Unknown, Rash, 08/19/14) COPIED FRON UNCODED Objective Last 24 Hour Vital Signs Date Time Temp Pulse Resp B/P Pulse Ox O2 Delivery O2 Flow Rate FiO2 09/09/16 08:49 97.5 90 20 117/61 95 Room Air 09/09/16 04:00 89 09/09/16 04:00 97.7 91 21 107/65 97 Room Air 09/09/16 00:00 91 09/09/16 00:00 97.6 91 22 105/58 98 Room Air 09/08/16 20:00 97.9 90 21 125/63 97 Room Air 09/08/16 20:00 90 09/08/16 17:17 96.8 90 20 120/63 97 Room Air 09/08/16 16:44 96.4 89 16 120/61 100 Room Air 09/08/16 16:15 89 16 120/61 100 Room Air 09/08/16 14:12 16 140/64 100 Room Air 09/08/16 13:59 96.4 94 16 140/64 100 Room Air Intake and Output 09/08/16 09/09/16 19:00 07:00 Intake Total 2290 ml Output Total 700 ml 200 ml Balance 1590 ml -200 ml Intake Oral 290 ml IV Total 2000 ml Output Urine Total 700 ml 200 ml General Appearance: WD/WN, no acute distress HEENT: normocephalic, atraumatic Respiratory/Chest: chest wall non-tender, lungs clear Cardiovascular: normal peripheral pulses, normal rate Abdomen: normal bowel sounds, soft, non tender Genitourinary: normal external genitalia Extremities: no cyanosis Skin: no rash Microbiology Date/Time Source Procedure Growth Status 09/08/16 16:40 Urine,Clean Catch Urine Culture - Preliminary Resulted Laboratory Tests 09/08/16 14:30: White Blood Count 9.8, Red Blood Count 3.49L, Hemoglobin 9.6L, Hematocrit 33.3L , Mean Corpuscular Volume 95, Mean Corpuscular Hemoglobin 27.4, Mean Corpuscular Hemoglobin Concent 28.7L, Red Cell Distribution Width 18.1H, Platelet Count 456H, Mean Platelet Volume 4.5L, Neutrophils (%) (Auto) 81.1H, Lymphocytes (%) (Auto) 10.3L, Monocytes (%) (Auto) 5.4, Eosinophils (%) (Auto) 2.5, Basophils (%) (Auto) 0.7, Prothrombin Time 10.2, Prothromb Time International Ratio 1.0, Activated Partial Thromboplast Time 40H, Sodium Level 136, Potassium Level 7.0*H, Chloride Level 102, Carbon Dioxide Level 16L, Anion Gap 18H, Blood Urea Nitrogen 42H, Creatinine 3.1H, Estimat Glomerular Filtration Rate , Glucose Level 138H, Plasma/Serum Osmolality [Pending], Lactic Acid Level 1.90, Uric Acid 4.4, Calcium Level 8.7, Phosphorus Level 2.8, Magnesium Level 2.0, Total Bilirubin < 0.2, Aspartate Amino Transf (AST/SGOT) 6 , Alanine Aminotransferase (ALT/SGPT) 6, Alkaline Phosphatase 115, Total Creatine Kinase 15L, Troponin I < 0.30, Pro-B-Type Natriuretic Peptide 1310H, Total Protein 6.1L, Albumin 2.6L, Globulin 3.5, Albumin/Globulin Ratio 0.7L, Free Thyroxine 1.05, Free Triiodothyronine [Pending], Cortisol [Pending] 09/08/16 16:40: Urine Color Pale yellow, Urine Appearance Slightly cloudy, Urine pH 5, Urine Specific [place] 1.010, Urine Protein 2+H, Urine Glucose (UA) 1+H, Urine Ketones Negative, Urine Occult Blood 2+H, Urine Nitrite Negative, Urine Bilirubin Negative, Urine Urobilinogen Normal, Urine Leukocyte Esterase 2+H, Urine RBC 2-4H, Urine WBC TntcH, Urine Squamous Epithelial Cells Occasional, Urine Bacteria ManyH, Urine Eosinophils Occassional seen, Urine Osmolality [ Pending], Urine Random Sodium 109, Urine Random Chloride 94, Urine Potassium Timed 25 09/09/16 06:35: White Blood Count 5.8, Red Blood Count 2.97L, Hemoglobin 8.2L, Hematocrit 28.0L , Mean Corpuscular Volume 94, Mean Corpuscular Hemoglobin 27.6, Mean Corpuscular Hemoglobin Concent 29.2L, Red Cell Distribution Width 17.7H, Platelet Count 355, Mean Platelet Volume 4.7L, Neutrophils (%) (Auto) , Lymphocytes (%) (Auto) , Monocytes (%) (Auto) , Eosinophils (%) (Auto) , Basophils (%) (Auto) , Sodium Level 140, Potassium Level 6.4*H, Chloride Level 108H, Carbon Dioxide Level 15L, Anion Gap 17H, Blood Urea Nitrogen 38H, Creatinine 3.0H, Estimat Glomerular Filtration Rate , Glucose Level 59L, Calcium Level 8.2L, Total Bilirubin < 0.2, Aspartate Amino Transf (AST/SGOT) < 5L, Alanine Aminotransferase (ALT/SGPT) 5, Alkaline Phosphatase 94, Total Protein 5.3L, Albumin 2.1L, Globulin 3.2, Albumin/Globulin Ratio 0.6L, Differential Total Cells Counted 100, Neutrophils % (Manual) 71, Lymphocytes % ( Manual) 14L, Monocytes % (Manual) 10, Eosinophils % (Manual) 5H, Basophils % ( Manual) 0, Band Neutrophils 0, Platelet Estimate Adequate, Platelet Morphology Normal, Hypochromasia 1+, Anisocytosis 1+, Hemoglobin A1c 4.8, Triglycerides Level 102, Cholesterol Level 67, LDL Cholesterol 17L, HDL Cholesterol 30, Cholesterol/HDL Ratio 2.2L, Thyroid Stimulating Hormone (TSH) 2.360 Current Medications Medications (Trade) Dose Ordered Sig/Koffi Route PRN Reason Start Time Stop Time Status Last Admin Dose Admin Acetaminophen (Tylenol) 650 mg Q4H PRN ORAL T>100.5 09/08/16 15:45 10/08/16 15:44 Al Hydroxide/Mg Hydroxide (Mylanta II) 30 ml Q6H PRN ORAL dyspepsia 09/08/16 15:45 10/08/16 15:44 Albuterol/ Ipratropium (DuoNeb 0.5-3(2.5)mg/3ml) 3 ml Q6H PRN HHN dyspnea 09/08/16 15:45 09/13/16 15:44 Amlodipine Besylate (Norvasc) 2.5 mg BIDPRN PRN ORAL SBP > 160 09/08/16 15:45 10/08/16 15:44 Clonidine HCl (Catapres) 0.1 mg Q4H PRN ORAL SBP>180 09/08/16 18:17 10/08/16 15:44 Clopidogrel Bisulfate (Plavix) 75 mg DAILY ORAL 09/09/16 09:00 10/09/16 08:59 09/09/16 08:15 Dextrose (Dextrose 50%) STAT PRN IV Hypoglycemia 09/08/16 15:45 10/08/16 15:44 09/09/16 07:10 Duloxetine HCl (Cymbalta) 30 mg DAILY ORAL 09/09/16 09:00 10/09/16 08:59 09/09/16 08:15 Furosemide (Lasix) 100 mg Q8H PRN IV dyspnea 09/08/16 15:45 10/08/16 15:44 Heparin Sodium (Porcine) (Heparin 5000 units/ml) 5,000 units EVERY 12 HOURS SUBQ 09/08/16 21:00 10/08/16 20:59 09/09/16 08:17 Insulin Aspart (NovoLOG) BEFORE MEALS AND HS SUBQ 09/08/16 21:00 10/08/16 20:59 Mirtazapine (Remeron) 15 mg BEDTIME ORAL 09/08/16 21:00 10/08/16 20:59 Morphine Sulfate (Morphine Sulfate) 1 mg Q4H PRN IVP PAIN 4-10 09/08/16 15:45 09/15/16 15:44 Mycophenolate Mofetil (Cellcept) 500 mg BID ORAL 09/08/16 18:00 10/08/16 17:59 09/09/16 08:15 Ondansetron HCl (Zofran) 4 mg Q6H PRN IVP Nausea & Vomiting 09/08/16 15:45 10/08/16 15:44 Polyethylene Glycol (Miralax) 17 gm HSPRN PRN ORAL Constipation 09/08/16 21:00 10/08/16 20:59 Pravastatin Sodium (Pravachol) 20 mg BEDTIME ORAL 09/08/16 21:00 10/08/16 20:59 09/08/16 21:00 Tacrolimus (Prograf) 1 mg BID ORAL 09/08/16 18:00 10/08/16 17:59 09/09/16 08:16 Zolpidem Tartrate (Ambien) 5 mg HSPRN PRN ORAL Insomnia 09/08/16 21:00 10/08/16 20:59 AMADO SCHULER Sep 09, 2016 11:36
--- NOTE | 2016-09-09 11:50 | Consultation ---
Consult Note Consult Note asked to evaluate the patient for hyperKalemia , Renal failure- Patient admitted for encephalopathy due to hypoglycemia- asked to evaluate for renal failure and hyperkalemia- 76-year-old male Allergies: ADHESIVE TAPE (Verified Allergy, Unknown, Rash, 05/27/16) PLASTIC TAPE-COPIED FROM UNCODED SECTION PROCAINE (Verified Allergy, Unknown, Rash, 08/19/14) COPIED FRON UNCODED Past Medical History: DM, HTN, [place], asthma, other - osteomyelitis Hx Cardiac Problems: Yes - HEART TRANSPLANT, MULTIPLE BIPASS, DOUBLE AMPUTEE Hx Hypertension: Yes Hx Asthma: Yes Hx Diabetes: Yes Hx Gastrointestinal Problems: Yes Hx Neurological Problems: Yes Patient interviewed and examined- data reviewed- . Assessment/Plan status; Acute Renal Failure- Cr higher HyperKalemia Superimposed on CRI due to DM / HTN PVD s/p amputation- Anemia s/p Heart transplant sacral decub stage 4 UTI plan: Kayexelate Slow Hydrate- Monitor BS transfuse- as needed wound care- antibiotics- monitor renal parameters- avoid nephrotoxics BRIJESH CALDERON Sep 09, 2016 11:50
[2016-09-09 11:53] VITALS: BP 125/61
--- NOTE | 2016-09-09 11:57 | Consultation ---
Consult Note Consult Note ID Dic# [id number] DIANA NORRIS M.D. Sep 09, 2016 11:57
[2016-09-09 12:24] LABS: URIC ACID 4.9 mg/dL (3.0-7.5)
[2016-09-09 12:30] LABS: IRON 36 ug/dL (59-158); TOTAL IRON BINDING CAPACITY 108 ug/dL (250-400)
[2016-09-09 12:34] LABS: FERRITIN 1518 ng/mL (10-230)
[2016-09-09 12:57] LABS: HEMOLYSIS 11
[2016-09-09] MEDS ORDERED: D5 1/2NS 1,000 ML IV SCH (13:00)
[2016-09-09 15:35] VITALS: BP 125/60
--- NOTE | 2016-09-09 16:15 | Wound Care Consultation ---
Wound Assessment Wound Assessment #1: Wound Present on Admission: Yes New Wound: No Status Change of Wound: No Wound Location Body Site Modif: right Wound Location Body Site: other - trochanter extended to ischeal tuberosity Wound Type: pressure ulcer Anirudh Test: Does not Anirudh Pressure Ulcer Stage: IV/unstageable Wound Thickness: Full Thickness Wound Length: 16.0 Wound Width: 18.0 Wound Depth: utd Percent of Wound [place]/Red: 50 Percent of Wound Bed Yellow/Wh: 50 Wound Drainage Description: Serosanguineous Wound Drainage Amount: Copious Wound Drainage Odor: None/Absent Tissue Surrounding Wound: Macerated Wound Undermining at 6:00: 2.5 Wound General Appearance: Reddened, Draining, Necrotic Wound Assessment #2: Wound Number: #3 Wound Present on Admission: Yes New Wound: No Status Change of Wound: No Wound Location Body Site Modif: left Wound Location Body Site: buttocks Wound Type: pressure ulcer Anirudh Test: Does not Anirudh Pressure Ulcer Stage: IV/unstageable Wound Thickness: Full Thickness Wound Length: 10.5 Wound Width: 11.5 Wound Depth: 3.0 Percent of Wound [place]/Red: 100 Wound Drainage Description: Serosanguineous Wound Drainage Amount: Copious Wound Drainage Odor: None/Absent Tissue Surrounding Wound: Macerated Wound Undermining at 12:00: 2.0 Wound Undermining at 3:00: 3.0 Wound Undermining at 6:00: 4.0 Wound General Appearance: Reddened, Draining Wound Assessment #3: Wound Number: #3 Wound Present on Admission: Yes New Wound: No Status Change of Wound: No Wound Location Body Site Modif: left Wound Location Body Site: buttocks Wound Type: pressure ulcer Anirudh Test: Does not Anirudh Pressure Ulcer Stage: IV/unstageable Wound Thickness: Full Thickness Wound Length: 8.0 Wound Width: 4.0 Wound Depth: utd Percent of Wound [place]/Red: 20 Percent of Wound Bed Yellow/Wh: 80 Wound Drainage Description: Serosanguineous Wound Drainage Amount: Moderate Wound Drainage Odor: None/Absent Tissue Surrounding Wound: Macerated Wound General Appearance: Draining, Necrotic Wound Assessment #4: Wound Number: #4 Wound Present on Admission: Yes New Wound: No Status Change of Wound: No Wound Location Body Site Modif: left Wound Location Body Site: trochanter Wound Type: pressure ulcer Anirudh Test: Does not Anirudh Pressure Ulcer Stage: IV/unstageable Wound Thickness: Full Thickness Wound Length: 7.0 Wound Width: 7.0 Wound Depth: utd Percent of Wound [place]/Red: 60 Percent of Wound Bed Yellow/Wh: 40 Wound Drainage Description: Serosanguineous Wound Drainage Amount: Moderate Wound Drainage Odor: None/Absent Tissue Surrounding Wound: Macerated Wound Undermining at 9:00: 1.0 Wound General Appearance: Reddened, Draining Wound Assessment #5: Wound Number: #5 Wound Present on Admission: Yes New Wound: No Status Change of Wound: No Wound Location Body Site Modif: right, upper Wound Location Body Site: back Wound Type: lesion-etiology unknown Anirudh Test: Does not Anirudh Wound Thickness: Full Thickness Wound Length: 2.5 Wound Width: 5.0 Wound Depth: utd Percent of Wound [place]/Red: 80 Percent of Wound Black/Brown: 20 Wound Drainage Amount: None Wound Drainage Odor: None/Absent Tissue Surrounding Wound: Erythemic Wound General Appearance: Reddened Wound Comment #1 Right trochanter extended to left ischial tuberosity stage IV/unstageable pressure ulcer #2 Sacral stage IV pressure ulcer #3 Left buttock stage IV/unstageable pressure ulcer #4 Left trochanter stage IV/unstageable pressure ulcer #5 Right upper back lesion etiology unknown Recommendation -Right trochanter, right ischial tuberosity,left buttock and left trochanter Cleanse with saline pat dry apply Santyl oint to wound bed, apply calcium alginate, cover with 4x4, secure with Bordered gauze daily and PRN soiled/ dislodged -Right upper back lesion open to air -Turn and reposition -Keep clean and dry -Optimize nutrition -Low air loss mattress -Assess and f/u accordingly for any changes BRANDT SEXTON RN Sep 09, 2016 16:15
[2016-09-09 20:07] VITALS: BP 125/65
[2016-09-09 20:35] LABS: ANION GAP 16 (5-15); CARBON DIOXIDE 15 mEQ/L (20-30); CHLORIDE 108 mEQ/L (98-107); CREATININE 2.9 mg/dL (0.7-1.2); HEMOLYSIS 1; SODIUM 139 mEQ/L (135-145)
[2016-09-09 20:47] LABS: POTASSIUM 6.3 mEQ/L (3.4-4.9)
--- NOTE | 2016-09-09 21:17 | Consultation ---
DATE OF CONSULTATION: INFECTIOUS DISEASE CONSULTATION CONSULTING PHYSICIAN: Cornelius Suero M.D. REFERRING PHYSICIAN: Sudarshan Hahn M.D. REASON FOR CONSULTATION: The patient urinary tract infection, antibiotic management. HISTORY OF PRESENT ILLNESS: The patient is a 76-year-old male with multiple medical problems listed below, who has been admitted to this medical center because of generalized weakness and chills. The patient was found to be hypoglycemic. The patient overall has felt better since. Infectious Disease consultation has been requested for evaluation of the patient for possible sepsis and urinary tract infection. PAST MEDICAL HISTORY: 1. History of multiple bypass surgeries secondary to CAD. 2. Hypertension. 3. Asthma. 4. Appendectomy. 5. History of bilateral lower extremity amputation. 6. Osteoarthritis. 7. Diabetes. 8. Hypothyroidism. 9. Anemia. MEDICATIONS: The patient received one dose of cefepime and vancomycin in the emergency room. ALLERGIES: Penicillin and procaine. FAMILY HISTORY: Noncontributory. REVIEW OF SYSTEMS: HEENT: No recent change in vision or hearing. Pulmonary: No cough or shortness of breath. Cardiovascular: No chest pain or palpitation. Gastrointestinal: No abdominal pain. No nausea or vomiting. Genitourinary: No dysuria. The patient has a chronic Barakat catheter. Neurologic: No seizure. PHYSICAL EXAMINATION: VITAL SIGNS: Pulse 86, respiratory rate 18, and blood pressure 117/61. HEENT: Mild pale conjunctiva. No icterus. No pallor. NECK: Supple. CHEST: Coarse breath sounds. HEART: S1 and S2. ABDOMEN: Soft and nontender. GENITOURINARY: Barakat catheter in place. EXTREMITIES: The patient has right lower extremity amputation. LABORATORY AND DIAGNOSTIC DATA: White blood cells 5.8, hemoglobin 8.2, and platelets 355,000. Urinalysis shows too numerous to count white blood cells. BUN 38 and creatinine 3. ALT, AST and alkaline phosphatase are unremarkable. ASSESSMENT: The patient is a 76-year-old male with past medical significant for multiple past medical history including , who was been admitted to this medical history due to hypoglycemia. The patient overall has improved since admission. The patient's urinalysis shows pyuria, but this is due to chronic Barakat catheter. The patient is afebrile. There is no leukocytosis. At this time, I do not think patient would benefit from antibiotic treatment. Also, there is no other significant source of infection. The patient has a sacral decubitus that does not appear to be the source of infection. There is no purulent discharge. PLAN: 1. We will monitor the patient off of antibiotics. 2. Monitor CBC. 3. Monitor BMP. 4. Monitor culture. 5. Based on the patient's labs, we will do further recommendation. Thank you, Dr. Hahn, for allowing me to participate in the care of this patient. I will follow the patient with you during this hospitalization. Cornelius Suero M.D. DR: ROGE JOB#: [id number] CC:
[2016-09-10 00:22] VITALS: BP 127/68
[2016-09-10 03:56] VITALS: BP_SYST 109; BP_SYST 150; BP_DIAS 53; BP_DIAS 90
[2016-09-10] MEDS: NovoLOG Insulin Flexpen SUBQ SCH ×4 (06:30→21:50)
[2016-09-10 07:40] LABS: BASOPHILS % (AUTO) 0.5 % (0.0-2.0); EOSINOPHILS % (AUTO) 2.1 % (0.0-3.0); LYMPHOCYTES % (AUTO) 12.7 % (20.0-45.0); MEAN CORPUSCULAR HEMOGLOBIN 26.8 PG (27.0-31.0); MEAN CORPUSCULAR HGB CONC 28.1 G/DL (32.0-36.0); MEAN CORPUSCULAR VOLUME 95 FL (80-99); MONOCYTES % (AUTO) 6.6 % (1.0-10.0); PLATELET COUNT 346 K/UL (150-450); RED BLOOD COUNT 3.03 M/UL (4.70-6.10); RED CELL DISTRIBUTION WIDTH 17.5 % (11.6-14.8); WHITE BLOOD COUNT 7.9 K/UL (4.8-10.8)
[2016-09-10 07:48] LABS: ALANINE AMINOTRANSFERASE 5 U/L (3-41); ALBUMIN/GLOBULIN RATIO 0.6 (1.0-2.7); ASPARTATE AMINO TRANSFERASE 6 U/L (5-40); CALCIUM 8.4 mg/dL (8.6-10.2); CARBON DIOXIDE 17 mEQ/L (20-30); CHLORIDE 108 mEQ/L (98-107); HEMOLYSIS 1; MAGNESIUM 1.8 mg/dL (1.7-2.5); PHOSPHORUS 3.9 mg/dL (2.5-4.8); SODIUM 142 mEQ/L (135-145); TOTAL PROTEIN 5.6 g/dL (6.6-8.7)
[2016-09-10 08:00] VITALS: BP 128/69
[2016-09-10 08:03] LABS: ANION GAP 17 (5-15)
[2016-09-10 08:20] LABS: POTASSIUM 6.6 mEQ/L (3.4-4.9)
[2016-09-10] MEDS ORDERED: Sodium Polystyrene Sulfonate 15gm Powder ORAL ONE (09:00)
[2016-09-10 09:10] LABS: ERYTHROCYTE SEDIMENTATION RATE 96 MM/HR (0-20)
--- NOTE | 2016-09-10 09:24 | General Progress Note ---
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 Slow Hydrate- Monitor BS transfuse- as needed wound care- antibiotics- monitor renal parameters- avoid nephrotoxics Subjective ROS Limited/Unobtainable: No Constitutional: Reports: malaise, weakness Allergies: Coded Allergies: ADHESIVE TAPE (Verified Allergy, Unknown, Rash, 05/27/16) PLASTIC TAPE-COPIED FROM UNCODED SECTION PENICILLINS (Verified Allergy, Unknown, 06/20/16) PROCAINE (Verified Allergy, Unknown, Rash, 08/19/14) COPIED FRON UNCODED Objective Last 24 Hour Vital Signs Date Time Temp Pulse Resp B/P Pulse Ox O2 Delivery O2 Flow Rate FiO2 09/10/16 08:00 97.7 99 19 128/69 100 Room Air 09/10/16 04:00 94 09/10/16 03:56 98.8 59 19 109/53 96 Room Air 09/10/16 00:22 98.8 95 21 127/68 97 Room Air 09/09/16 20:12 90 18 Room Air 21 09/09/16 20:07 98.5 91 20 125/65 94 Room Air 09/09/16 20:00 92 09/09/16 16:00 88 09/09/16 15:35 97.7 89 20 125/60 95 Room Air 09/09/16 12:00 87 09/09/16 11:53 97.2 87 20 125/61 96 Room Air Intake and Output 09/09/16 09/10/16 19:00 07:00 Intake Total 585 ml Output Total 600 ml 1000 ml Balance -15 ml -1000 ml Intake Oral 360 ml IV Total 225 ml Output Urine Total 600 ml 1000 ml Laboratory Tests 09/09/16 19:15: Sodium Level 139, Potassium Level 6.3*H, Chloride Level 108H, Carbon Dioxide Level 15L, Anion Gap 16H, Blood Urea Nitrogen 36H, Creatinine 2.9H, Estimat Glomerular Filtration Rate , Glucose Level 136H, Calcium Level 8.0L 09/10/16 06:40: Sodium Level 142, Potassium Level 6.6*H, Chloride Level 108H, Carbon Dioxide Level 17L, Anion Gap 17H, Blood Urea Nitrogen 34H, Creatinine 3.0H, Estimat Glomerular Filtration Rate , Glucose Level 118H, Calcium Level 8.4L, White Blood Count 7.9, Red Blood Count 3.03L, Hemoglobin 8.1L, Hematocrit 28.9L, Mean Corpuscular Volume 95, Mean Corpuscular Hemoglobin 26.8L, Mean Corpuscular Hemoglobin Concent 28.1L, Red Cell Distribution Width 17.5H, Platelet Count 346 , Mean Platelet Volume 5.0L, Neutrophils (%) (Auto) 78.0H, Lymphocytes (%) (Auto ) 12.7L, Monocytes (%) (Auto) 6.6, Eosinophils (%) (Auto) 2.1, Basophils (%) ( Auto) 0.5, Erythrocyte Sedimentation Rate 96H, Phosphorus Level 3.9, Magnesium Level 1.8, Total Bilirubin < 0.2, Aspartate Amino Transf (AST/SGOT) 6, Alanine Aminotransferase (ALT/SGPT) 5, Alkaline Phosphatase 103, C-Reactive Protein, Quantitative 13.0H, Total Protein 5.6L, Albumin 2.2L, Globulin 3.4, Albumin/ Globulin Ratio 0.6L Height (Feet): 5 Height (Inches): 0.00 Weight (Pounds): 170 General Appearance: no apparent distress, lethargic Cardiovascular: tachycardia Respiratory/Chest: decreased breath sounds Abdomen: soft Skin: other - sacral stage 4 BRIJESH CALDERON Sep 10, 2016 09:23
[2016-09-10] MEDS: DULoxetine 30mg cap ORAL SCH (09:34)
[2016-09-10] MEDS: Heparin 5000 units/ml inj SUBQ SCH ×2 (09:36→21:52)
[2016-09-10] MEDS: Mycophenolate 250mg cap ORAL SCH ×2 (09:41→17:48)
[2016-09-10] MEDS ORDERED: D5 1/2NS 1000ml IV ONE (09:56)
[2016-09-10] MEDS: Sodium Citrate 30ml ORAL SCH ×3 (11:25→17:48)
[2016-09-10 12:00] VITALS: BP 122/63
--- NOTE | 2016-09-10 13:31 | Cardiology Report ---
APPROVED REPORT EKG Measurement Heart [id number] Normal sinus rhythm Low voltage QRS Borderline ECG
--- NOTE | 2016-09-10 14:50 | Infectious Diseases Prog Note ---
Assessment/Plan Assessment/Plan A:L The patient is a 76-year-old male with Doubt UTI UA : pyuria, due to chronic Barakat catheter SP hypoglycemia CABG CADHTN Asthma Appendectomy History of bilateral lower extremity amputation Osteoarthritis Diabetes Hypothyroidism Anemia PLAN: monitor the patient off of antibiotics Monitor CBC Monitor BMP Monitor culture Subjective Constitutional: Denies: anorexia, chills, drenching sweats, fatigue, fever, no symptoms, other Allergies: Coded Allergies: ADHESIVE TAPE (Verified Allergy, Unknown, Rash, 05/27/16) PLASTIC TAPE-COPIED FROM UNCODED SECTION PENICILLINS (Verified Allergy, Unknown, 06/20/16) PROCAINE (Verified Allergy, Unknown, Rash, 08/19/14) COPIED FRON UNCODED Objective Vital Signs Last 24 Hour Vital Signs Date Time Temp Pulse Resp B/P Pulse Ox O2 Delivery O2 Flow Rate FiO2 09/10/16 12:00 96.8 98 19 122/63 95 Room Air 09/10/16 08:17 91 18 Room Air 21 09/10/16 08:00 97.7 99 19 128/69 100 Room Air 09/10/16 04:00 94 09/10/16 03:56 98.8 59 19 109/53 96 Room Air 09/10/16 00:22 98.8 95 21 127/68 97 Room Air 09/09/16 20:12 90 18 Room Air 21 09/09/16 20:07 98.5 91 20 125/65 94 Room Air 09/09/16 20:00 92 09/09/16 16:00 88 09/09/16 15:35 97.7 89 20 125/60 95 Room Air Height (Feet): 5 Height (Inches): 0.00 Weight (Pounds): 170 HEENT: anicteric Respiratory/Chest: no respiratory distress Microbiology Date/Time Source Procedure Growth Status 09/08/16 14:30 Blood Blood Culture - Preliminary NO GROWTH AFTER 24 HOURS Resulted 09/08/16 14:15 Blood Blood Culture - Preliminary NO GROWTH AFTER 24 HOURS Resulted 09/08/16 16:40 Urine,Clean Catch Urine Culture - Preliminary Gram Negative Bacillus 1 Gram Negative Bacillus 2 Resulted 09/08/16 22:00 Hip Right Gram Stain - Final Resulted 09/08/16 22:00 Hip Right Wound Culture Pending Resulted Laboratory Tests Test 09/09/16 19:15 09/10/16 06:40 Sodium Level 139 mEQ/L (135-145) 142 mEQ/L (135-145) Potassium Level 6.3 mEQ/L (3.4-4.9) *H 6.6 mEQ/L (3.4-4.9) *H Chloride Level 108 mEQ/L (98-107) H 108 mEQ/L (98-107) H Carbon Dioxide Level 15 mEQ/L (20-30) L 17 mEQ/L (20-30) L Anion Gap 16 (5-15) H 17 (5-15) H Blood Urea Nitrogen 36 mg/dL (7-23) H 34 mg/dL (7-23) H Creatinine 2.9 mg/dL (0.7-1.2) H 3.0 mg/dL (0.7-1.2) H Estimat Glomerular Filtration Rate mL/min (>60) mL/min (>60) Glucose Level 136 mg/dL (74-106) H 118 mg/dL (74-106) H Calcium Level 8.0 mg/dL (8.6-10.2) L 8.4 mg/dL (8.6-10.2) L White Blood Count 7.9 K/UL (4.8-10.8) Red Blood Count 3.03 M/UL (4.70-6.10) L Hemoglobin 8.1 G/DL (14.2-18.0) L Hematocrit 28.9 % (42.0-52.0) L Mean Corpuscular Volume 95 FL (80-99) Mean Corpuscular Hemoglobin 26.8 PG (27.0-31.0) L Mean Corpuscular Hemoglobin Concent 28.1 G/DL (32.0-36.0) L Red Cell Distribution Width 17.5 % (11.6-14.8) H Platelet Count 346 K/UL (150-450) Mean Platelet Volume 5.0 FL (6.5-10.1) L Neutrophils (%) (Auto) 78.0 % (45.0-75.0) H Lymphocytes (%) (Auto) 12.7 % (20.0-45.0) L Monocytes (%) (Auto) 6.6 % (1.0-10.0) Eosinophils (%) (Auto) 2.1 % (0.0-3.0) Basophils (%) (Auto) 0.5 % (0.0-2.0) Erythrocyte Sedimentation Rate 96 MM/HR (0-20) H Phosphorus Level 3.9 mg/dL (2.5-4.8) Magnesium Level 1.8 mg/dL (1.7-2.5) Total Bilirubin < 0.2 mg/dL (0.0-1.2) Aspartate Amino Transf (AST/SGOT) 6 U/L (5-40) Alanine Aminotransferase (ALT/SGPT) 5 U/L (3-41) Alkaline Phosphatase 103 U/L (40-129) C-Reactive Protein, Quantitative 13.0 mg/dL (< 0.5) H Total Protein 5.6 g/dL (6.6-8.7) L Albumin 2.2 g/dL (3.5-5.2) L Globulin 3.4 g/dL Albumin/Globulin Ratio 0.6 (1.0-2.7) L Current Medications Medications (Trade) Dose Ordered Sig/Koffi Route PRN Reason Start Time Stop Time Status Last Admin Dose Admin Acetaminophen (Tylenol) 650 mg Q4H PRN ORAL T>100.5 09/08/16 15:45 10/08/16 15:44 Albuterol/ Ipratropium (DuoNeb 0.5-3(2.5)mg/3ml) 3 ml Q6H PRN HHN dyspnea 09/08/16 15:45 09/13/16 15:44 Amlodipine Besylate (Norvasc) 2.5 mg BIDPRN PRN ORAL SBP > 160 09/08/16 15:45 10/08/16 15:44 Clopidogrel Bisulfate (Plavix) 75 mg DAILY ORAL 09/09/16 09:00 10/09/16 08:59 09/10/16 09:34 Collagenase (Santyl) 1 applic DAILY TOPIC 09/10/16 09:00 10/10/16 08:59 09/10/16 09:41 Dextrose (Dextrose 50%) STAT PRN IV Hypoglycemia 09/08/16 15:45 10/08/16 15:44 09/09/16 07:10 Duloxetine HCl (Cymbalta) 30 mg DAILY ORAL 09/09/16 09:00 10/09/16 08:59 09/10/16 09:34 Heparin Sodium (Porcine) (Heparin 5000 units/ml) 5,000 units EVERY 12 HOURS SUBQ 09/08/16 21:00 10/08/16 20:59 09/10/16 09:36 Insulin Aspart (NovoLOG) BEFORE MEALS AND HS SUBQ 09/08/16 21:00 10/08/16 20:59 Mirtazapine (Remeron) 15 mg BEDTIME ORAL 09/08/16 21:00 10/08/16 20:59 Morphine Sulfate (Morphine Sulfate) 1 mg Q4H PRN IVP PAIN 4-10 09/08/16 15:45 09/15/16 15:44 Mycophenolate Mofetil (Cellcept) 500 mg BID ORAL 09/08/16 18:00 10/08/16 17:59 09/10/16 09:41 Ondansetron HCl (Zofran) 4 mg Q6H PRN IVP Nausea & Vomiting 09/08/16 15:45 10/08/16 15:44 Pantoprazole (Protonix) 40 mg EVERY 12 HOURS ORAL 09/10/16 09:00 10/10/16 08:59 09/10/16 09:41 Polyethylene Glycol (Miralax) 17 gm HSPRN PRN ORAL Constipation 09/08/16 21:00 10/08/16 20:59 Pravastatin Sodium (Pravachol) 20 mg BEDTIME ORAL 09/08/16 21:00 10/08/16 20:59 09/09/16 21:00 Sodium Citrate (Bicitra) 30 ml TID ORAL 09/10/16 10:00 10/10/16 09:59 09/10/16 13:25 Tacrolimus (Prograf) 1 mg BID ORAL 09/08/16 18:00 10/08/16 17:59 09/10/16 09:35 Zolpidem Tartrate (Ambien) 5 mg HSPRN PRN ORAL Insomnia 09/08/16 21:00 10/08/16 20:59 DIANA NORRIS M.D. Sep 10, 2016 14:49
--- NOTE | 2016-09-10 15:12 | Pulmonology Progress Note ---
Assessment/Plan Problems: (1) Acute encephalopathy (2) ATN (acute tubular necrosis) (3) Hypoglycemia (4) Hyperkalemia (5) Severe anemia (6) Decubitus ulcer of buttock, stage 4 (7) UTI (lower urinary tract infection) (8) Heart transplant status Assessment/Plan K still high wound care consult check electrolytes ID evaluation appreciated quiroga culture\ monitor off abx Subjective ROS Limited/Unobtainable: No Interval Events: refusing lots of meds sofar Allergies: Coded Allergies: ADHESIVE TAPE (Verified Allergy, Unknown, Rash, 05/27/16) PLASTIC TAPE-COPIED FROM UNCODED SECTION PENICILLINS (Verified Allergy, Unknown, 06/20/16) PROCAINE (Verified Allergy, Unknown, Rash, 08/19/14) COPIED FRON UNCODED Objective Last 24 Hour Vital Signs Date Time Temp Pulse Resp B/P Pulse Ox O2 Delivery O2 Flow Rate FiO2 09/10/16 12:00 96.8 98 19 122/63 95 Room Air 09/10/16 08:17 91 18 Room Air 21 09/10/16 08:00 97.7 99 19 128/69 100 Room Air 09/10/16 04:00 94 09/10/16 03:56 98.8 59 19 109/53 96 Room Air 09/10/16 00:22 98.8 95 21 127/68 97 Room Air 09/09/16 20:12 90 18 Room Air 21 09/09/16 20:07 98.5 91 20 125/65 94 Room Air 09/09/16 20:00 92 09/09/16 16:00 88 09/09/16 15:35 97.7 89 20 125/60 95 Room Air Intake and Output 09/09/16 09/10/16 19:00 07:00 Intake Total 585 ml Output Total 600 ml 1000 ml Balance -15 ml -1000 ml Intake Oral 360 ml IV Total 225 ml Output Urine Total 600 ml 1000 ml General Appearance: WD/WN HEENT: normocephalic, anicteric Respiratory/Chest: chest wall non-tender, lungs clear Cardiovascular: normal peripheral pulses, normal rate Abdomen: normal bowel sounds, soft, non tender Genitourinary: normal external genitalia Extremities: no clubbing Skin: no rash Microbiology Date/Time Source Procedure Growth Status 09/08/16 14:30 Blood Blood Culture - Preliminary NO GROWTH AFTER 24 HOURS Resulted 09/08/16 14:15 Blood Blood Culture - Preliminary NO GROWTH AFTER 24 HOURS Resulted 09/08/16 16:40 Urine,Clean Catch Urine Culture - Preliminary Gram Negative Bacillus 1 Gram Negative Bacillus 2 Resulted 09/08/16 22:00 Hip Right Gram Stain - Final Resulted 09/08/16 22:00 Hip Right Wound Culture Pending Resulted Laboratory Tests 09/09/16 19:15: Sodium Level 139, Potassium Level 6.3*H, Chloride Level 108H, Carbon Dioxide Level 15L, Anion Gap 16H, Blood Urea Nitrogen 36H, Creatinine 2.9H, Estimat Glomerular Filtration Rate , Glucose Level 136H, Calcium Level 8.0L 09/10/16 06:40: Sodium Level 142, Potassium Level 6.6*H, Chloride Level 108H, Carbon Dioxide Level 17L, Anion Gap 17H, Blood Urea Nitrogen 34H, Creatinine 3.0H, Estimat Glomerular Filtration Rate , Glucose Level 118H, Calcium Level 8.4L, White Blood Count 7.9, Red Blood Count 3.03L, Hemoglobin 8.1L, Hematocrit 28.9L, Mean Corpuscular Volume 95, Mean Corpuscular Hemoglobin 26.8L, Mean Corpuscular Hemoglobin Concent 28.1L, Red Cell Distribution Width 17.5H, Platelet Count 346 , Mean Platelet Volume 5.0L, Neutrophils (%) (Auto) 78.0H, Lymphocytes (%) (Auto ) 12.7L, Monocytes (%) (Auto) 6.6, Eosinophils (%) (Auto) 2.1, Basophils (%) ( Auto) 0.5, Erythrocyte Sedimentation Rate 96H, Phosphorus Level 3.9, Magnesium Level 1.8, Total Bilirubin < 0.2, Aspartate Amino Transf (AST/SGOT) 6, Alanine Aminotransferase (ALT/SGPT) 5, Alkaline Phosphatase 103, C-Reactive Protein, Quantitative 13.0H, Total Protein 5.6L, Albumin 2.2L, Globulin 3.4, Albumin/ Globulin Ratio 0.6L Current Medications Medications (Trade) Dose Ordered Sig/Koffi Route PRN Reason Start Time Stop Time Status Last Admin Dose Admin Acetaminophen (Tylenol) 650 mg Q4H PRN ORAL T>100.5 09/08/16 15:45 10/08/16 15:44 Albuterol/ Ipratropium (DuoNeb 0.5-3(2.5)mg/3ml) 3 ml Q6H PRN HHN dyspnea 09/08/16 15:45 09/13/16 15:44 Amlodipine Besylate (Norvasc) 2.5 mg BIDPRN PRN ORAL SBP > 160 09/08/16 15:45 10/08/16 15:44 Clopidogrel Bisulfate (Plavix) 75 mg DAILY ORAL 09/09/16 09:00 10/09/16 08:59 09/10/16 09:34 Collagenase (Santyl) 1 applic DAILY TOPIC 09/10/16 09:00 10/10/16 08:59 09/10/16 09:41 Dextrose (Dextrose 50%) STAT PRN IV Hypoglycemia 09/08/16 15:45 10/08/16 15:44 09/09/16 07:10 Duloxetine HCl (Cymbalta) 30 mg DAILY ORAL 09/09/16 09:00 10/09/16 08:59 09/10/16 09:34 Heparin Sodium (Porcine) (Heparin 5000 units/ml) 5,000 units EVERY 12 HOURS SUBQ 09/08/16 21:00 10/08/16 20:59 09/10/16 09:36 Insulin Aspart (NovoLOG) BEFORE MEALS AND HS SUBQ 09/08/16 21:00 10/08/16 20:59 Mirtazapine (Remeron) 15 mg BEDTIME ORAL 09/08/16 21:00 10/08/16 20:59 Morphine Sulfate (Morphine Sulfate) 1 mg Q4H PRN IVP PAIN 4-10 09/08/16 15:45 09/15/16 15:44 Mycophenolate Mofetil (Cellcept) 500 mg BID ORAL 09/08/16 18:00 10/08/16 17:59 09/10/16 09:41 Ondansetron HCl (Zofran) 4 mg Q6H PRN IVP Nausea & Vomiting 09/08/16 15:45 10/08/16 15:44 Pantoprazole (Protonix) 40 mg EVERY 12 HOURS ORAL 09/10/16 09:00 10/10/16 08:59 09/10/16 09:41 Polyethylene Glycol (Miralax) 17 gm HSPRN PRN ORAL Constipation 09/08/16 21:00 10/08/16 20:59 Pravastatin Sodium (Pravachol) 20 mg BEDTIME ORAL 09/08/16 21:00 10/08/16 20:59 09/09/16 21:00 Sodium Citrate (Bicitra) 30 ml TID ORAL 09/10/16 10:00 10/10/16 09:59 09/10/16 13:25 Tacrolimus (Prograf) 1 mg BID ORAL 09/08/16 18:00 10/08/16 17:59 09/10/16 09:35 Zolpidem Tartrate (Ambien) 5 mg HSPRN PRN ORAL Insomnia 09/08/16 21:00 10/08/16 20:59 AMADO SCHULER Sep 10, 2016 15:12
[2016-09-10 16:00] VITALS: BP 132/72
--- NOTE | 2016-09-10 19:08 | Cardiology Progress Note ---
Assessment/Plan Assessment/Plan hyperkalemia (previously due ro renal failure and over use of benica ) acute on chronic renal filure s/p heart tx dm with endorgan disease pvd obesity anemia htn consitpation prograff level in am in light o frenal insuf is on norvasc for bp control seem fien nephrology follwoign Objective Last 24 Hour Vital Signs Date Time Temp Pulse Resp B/P Pulse Ox O2 Delivery O2 Flow Rate FiO2 09/10/16 16:00 98.1 97 20 132/72 97 Room Air 09/10/16 12:00 96.8 98 19 122/63 95 Room Air 09/10/16 12:00 97 09/10/16 08:17 91 18 Room Air 21 09/10/16 08:00 99 09/10/16 08:00 97.7 99 19 128/69 100 Room Air 09/10/16 04:00 94 09/10/16 03:56 98.8 59 19 109/53 96 Room Air 09/10/16 00:22 98.8 95 21 127/68 97 Room Air 09/09/16 20:12 90 18 Room Air 21 09/09/16 20:07 98.5 91 20 125/65 94 Room Air 09/09/16 20:00 92 Intake and Output 09/09/16 09/10/16 19:00 07:00 Intake Total 585 ml Output Total 600 ml 1000 ml Balance -15 ml -1000 ml Intake Oral 360 ml IV Total 225 ml Output Urine Total 600 ml 1000 ml Laboratory Tests Test 09/09/16 19:15 09/10/16 06:40 Sodium Level 139 mEQ/L (135-145) 142 mEQ/L (135-145) Potassium Level 6.3 mEQ/L (3.4-4.9) *H 6.6 mEQ/L (3.4-4.9) *H Chloride Level 108 mEQ/L (98-107) H 108 mEQ/L (98-107) H Carbon Dioxide Level 15 mEQ/L (20-30) L 17 mEQ/L (20-30) L Anion Gap 16 (5-15) H 17 (5-15) H Blood Urea Nitrogen 36 mg/dL (7-23) H 34 mg/dL (7-23) H Creatinine 2.9 mg/dL (0.7-1.2) H 3.0 mg/dL (0.7-1.2) H Estimat Glomerular Filtration Rate mL/min (>60) mL/min (>60) Glucose Level 136 mg/dL (74-106) H 118 mg/dL (74-106) H Calcium Level 8.0 mg/dL (8.6-10.2) L 8.4 mg/dL (8.6-10.2) L White Blood Count 7.9 K/UL (4.8-10.8) Red Blood Count 3.03 M/UL (4.70-6.10) L Hemoglobin 8.1 G/DL (14.2-18.0) L Hematocrit 28.9 % (42.0-52.0) L Mean Corpuscular Volume 95 FL (80-99) Mean Corpuscular Hemoglobin 26.8 PG (27.0-31.0) L Mean Corpuscular Hemoglobin Concent 28.1 G/DL (32.0-36.0) L Red Cell Distribution Width 17.5 % (11.6-14.8) H Platelet Count 346 K/UL (150-450) Mean Platelet Volume 5.0 FL (6.5-10.1) L Neutrophils (%) (Auto) 78.0 % (45.0-75.0) H Lymphocytes (%) (Auto) 12.7 % (20.0-45.0) L Monocytes (%) (Auto) 6.6 % (1.0-10.0) Eosinophils (%) (Auto) 2.1 % (0.0-3.0) Basophils (%) (Auto) 0.5 % (0.0-2.0) Erythrocyte Sedimentation Rate 96 MM/HR (0-20) H Phosphorus Level 3.9 mg/dL (2.5-4.8) Magnesium Level 1.8 mg/dL (1.7-2.5) Total Bilirubin < 0.2 mg/dL (0.0-1.2) Aspartate Amino Transf (AST/SGOT) 6 U/L (5-40) Alanine Aminotransferase (ALT/SGPT) 5 U/L (3-41) Alkaline Phosphatase 103 U/L (40-129) C-Reactive Protein, Quantitative 13.0 mg/dL (< 0.5) H Total Protein 5.6 g/dL (6.6-8.7) L Albumin 2.2 g/dL (3.5-5.2) L Globulin 3.4 g/dL Albumin/Globulin Ratio 0.6 (1.0-2.7) L Microbiology Date/Time Source Procedure Growth Status 09/08/16 14:30 Blood Blood Culture - Preliminary NO GROWTH AFTER 24 HOURS Resulted 09/08/16 14:15 Blood Blood Culture - Preliminary NO GROWTH AFTER 24 HOURS Resulted 09/08/16 16:40 Urine,Clean Catch Urine Culture - Preliminary Gram Negative Bacillus 1 Gram Negative Bacillus 2 Resulted 09/08/16 22:00 Hip Right Gram Stain - Final Resulted 09/08/16 22:00 Hip Right Wound Culture Pending Resulted HAILEE PATEL Sep 10, 2016 19:08
[2016-09-10 20:00] VITALS: BP 113/64
[2016-09-11] VITALS: BP 116/63
[2016-09-11 04:00] VITALS: BP 118/61
[2016-09-11] MEDS: NovoLOG Insulin Flexpen SUBQ SCH ×4 (06:30→21:52)
[2016-09-11 08:00] VITALS: BP 131/59
[2016-09-11] MEDS: Sodium Citrate 30ml ORAL SCH ×4 (09:00→17:32)
--- NOTE | 2016-09-11 09:22 | General Progress Note ---
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 SNOMED: 593722740 (3) Hypoglycemia ICD Codes: E16.2 - Hypoglycemia, unspecified SNOMED: 189159293 (4) Heart transplant status ICD Codes: Z94.1 - Heart transplant status SNOMED: 53645078, 88557064, 352283188, [id number] Assessment/Plan continue to hold Glyburide / Lantus / Januvia continue sliding scale Novolog as his BG values are stable will gradually resumed diabetic regimen once BG starts to rise Subjective Allergies: Coded Allergies: ADHESIVE TAPE (Verified Allergy, Unknown, Rash, 05/27/16) PLASTIC TAPE-COPIED FROM UNCODED SECTION PENICILLINS (Verified Allergy, Unknown, 06/20/16) PROCAINE (Verified Allergy, Unknown, Rash, 08/19/14) COPIED FRON UNCODED All Systems: reviewed and negative except above Subjective admitted from wound clinic due to AMS and hypoglycemia diabetic meds held hypoglycemia treated with dextrose - DC'ed BG values are stable complaining of constipation Objective Last 24 Hour Vital Signs Date Time Temp Pulse Resp B/P Pulse Ox O2 Delivery O2 Flow Rate FiO2 09/11/16 08:00 97.7 89 18 131/59 99 Room Air 09/11/16 04:00 94 09/11/16 04:00 97.0 98 20 118/61 97 Room Air 09/11/16 00:00 98.2 102 20 116/63 97 Room Air 09/11/16 00:00 101 09/10/16 20:00 98.2 102 20 113/64 97 Room Air 21 09/10/16 20:00 97 09/10/16 19:10 100 18 Room Air 09/10/16 16:00 96 09/10/16 16:00 98.1 97 20 132/72 97 Room Air 09/10/16 12:00 96.8 98 19 122/63 95 Room Air 09/10/16 12:00 97 Intake and Output 09/10/16 09/11/16 19:00 07:00 Output Total 700 ml 1300 ml Balance -700 ml -1300 ml Output Urine Total 700 ml 1300 ml Height (Feet): 5 Height (Inches): 0.00 Weight (Pounds): 170 General Appearance: no apparent distress Neck: non-tender, normal alignment Cardiovascular: normal peripheral pulses Respiratory/Chest: chest wall non-tender Abdomen: normal bowel sounds Pelvis: normal external exam Edema: no edema noted Arm (L), no edema noted Arm (R), no edema noted Leg (L), no edema noted Leg (R), no edema noted Pedal (L), no edema noted Pedal (R), no edema noted Generalized Objective Current Medications Medications (Trade) Dose Ordered Sig/Koffi Route PRN Reason Start Time Stop Time Status Last Admin Dose Admin Acetaminophen (Tylenol) 650 mg Q4H PRN ORAL T>100.5 09/08/16 15:45 10/08/16 15:44 Albuterol/ Ipratropium (DuoNeb 0.5-3(2.5)mg/3ml) 3 ml Q6H PRN HHN dyspnea 09/08/16 15:45 09/13/16 15:44 Amlodipine Besylate (Norvasc) 2.5 mg BIDPRN PRN ORAL SBP > 160 09/08/16 15:45 10/08/16 15:44 Clopidogrel Bisulfate (Plavix) 75 mg DAILY ORAL 09/09/16 09:00 10/09/16 08:59 09/10/16 09:34 Collagenase (Santyl) 1 applic DAILY TOPIC 09/10/16 09:00 10/10/16 08:59 09/10/16 09:41 Dextrose (Dextrose 50%) STAT PRN IV Hypoglycemia 09/08/16 15:45 10/08/16 15:44 09/09/16 07:10 Duloxetine HCl (Cymbalta) 30 mg DAILY ORAL 09/09/16 09:00 10/09/16 08:59 09/10/16 09:34 Heparin Sodium (Porcine) (Heparin 5000 units/ml) 5,000 units EVERY 12 HOURS SUBQ 09/08/16 21:00 10/08/16 20:59 09/10/16 21:52 Insulin Aspart (NovoLOG) BEFORE MEALS AND HS SUBQ 09/08/16 21:00 10/08/16 20:59 09/10/16 17:44 Mirtazapine (Remeron) 15 mg BEDTIME ORAL 09/08/16 21:00 10/08/16 20:59 Morphine Sulfate (Morphine Sulfate) 1 mg Q4H PRN IVP PAIN 4-10 09/08/16 15:45 09/15/16 15:44 Mycophenolate Mofetil (Cellcept) 500 mg BID ORAL 09/08/16 18:00 10/08/16 17:59 09/10/16 17:48 Ondansetron HCl (Zofran) 4 mg Q6H PRN IVP Nausea & Vomiting 09/08/16 15:45 10/08/16 15:44 Pantoprazole (Protonix) 40 mg EVERY 12 HOURS ORAL 09/10/16 09:00 10/10/16 08:59 09/10/16 21:51 Polyethylene Glycol (Miralax) 17 gm HSPRN PRN ORAL Constipation 09/08/16 21:00 10/08/16 20:59 Pravastatin Sodium (Pravachol) 20 mg BEDTIME ORAL 09/08/16 21:00 10/08/16 20:59 09/10/16 21:51 Sodium Citrate (Bicitra) 30 ml TID ORAL 09/10/16 10:00 10/10/16 09:59 09/10/16 17:48 Tacrolimus (Prograf) 1 mg BID ORAL 09/08/16 18:00 10/08/16 17:59 09/10/16 17:48 Zolpidem Tartrate (Ambien) 5 mg HSPRN PRN ORAL Insomnia 09/08/16 21:00 10/08/16 20:59 Item Value Date Time Bedside Blood Glucose 148 mg/dl H 09/11/16 0630 Bedside Blood Glucose 115 mg/dl 09/10/16 2150 Bedside Blood Glucose 193 mg/dl H 09/10/16 1744 Bedside Blood Glucose 179 mg/dl H 09/10/16 1130 FUAD SOTELO Sep 11, 2016 09:22
[2016-09-11] MEDS: DULoxetine 30mg cap ORAL SCH (09:32)
[2016-09-11] MEDS: Mycophenolate 250mg cap ORAL SCH ×2 (09:32→17:32)
[2016-09-11] MEDS: Heparin 5000 units/ml inj SUBQ SCH ×4 (09:34→21:56)
--- NOTE | 2016-09-11 10:54 | General Progress Note ---
Assessment/Plan Status: stable Status Narrative status of serum K , not known yet today Assessment/Plan Acute Renal Failure- Cr higher HyperKalemia Superimposed on CRI due to DM / HTN PVD s/p amputation- Anemia s/p Heart transplant sacral decub stage 4 UTI plan: labs pending - monitor K Slow Hydrate- Monitor BS transfuse- as needed wound care- antibiotics- monitor renal parameters- avoid nephrotoxics Subjective ROS Limited/Unobtainable: No Constitutional: Reports: malaise Allergies: Coded Allergies: ADHESIVE TAPE (Verified Allergy, Unknown, Rash, 05/27/16) PLASTIC TAPE-COPIED FROM UNCODED SECTION PENICILLINS (Verified Allergy, Unknown, 06/20/16) PROCAINE (Verified Allergy, Unknown, Rash, 08/19/14) COPIED FRON UNCODED Objective Last 24 Hour Vital Signs Date Time Temp Pulse Resp B/P Pulse Ox O2 Delivery O2 Flow Rate FiO2 09/11/16 08:00 97.7 89 18 131/59 99 Room Air 09/11/16 08:00 88 09/11/16 04:00 94 09/11/16 04:00 97.0 98 20 118/61 97 Room Air 21 09/11/16 00:00 98.2 102 20 116/63 97 Room Air 21 09/11/16 00:00 101 09/10/16 20:00 98.2 102 20 113/64 97 Room Air 21 09/10/16 20:00 97 09/10/16 19:10 100 18 Room Air 21 09/10/16 16:00 96 09/10/16 16:00 98.1 97 20 132/72 97 Room Air 09/10/16 12:00 96.8 98 19 122/63 95 Room Air 09/10/16 12:00 97 Intake and Output 09/10/16 09/11/16 19:00 07:00 Output Total 700 ml 1300 ml Balance -700 ml -1300 ml Output Urine Total 700 ml 1300 ml Height (Feet): 5 Height (Inches): 0.00 Weight (Pounds): 170 General Appearance: no apparent distress Cardiovascular: bradycardia Respiratory/Chest: decreased breath sounds Objective PE not changed BRIJESH CALDERON Sep 11, 2016 10:54
[2016-09-11 12:00] VITALS: BP 123/60
[2016-09-11 12:20] LABS: ALANINE AMINOTRANSFERASE 7 U/L (3-41); ALBUMIN/GLOBULIN RATIO 0.7 (1.0-2.7); ANION GAP 15 (5-15); ASPARTATE AMINO TRANSFERASE 7 U/L (5-40); CALCIUM 8.8 mg/dL (8.6-10.2); CARBON DIOXIDE 21 mEQ/L (20-30); CHLORIDE 107 mEQ/L (98-107); CREATININE 2.8 mg/dL (0.7-1.2); HEMOLYSIS 0; POTASSIUM 5.6 mEQ/L (3.4-4.9); SODIUM 143 mEQ/L (135-145); TOTAL PROTEIN 5.7 g/dL (6.6-8.7)
--- NOTE | 2016-09-11 14:39 | Pulmonology Progress Note ---
Assessment/Plan Assessment/Plan ASSESSMENT acute on chronic renal falirue acute hyperkalemia s/p heart transplant DM with end organ damage recurrent episodes of hypoglycemia ( at home) PVD bilateral amputee anemia HTN constipation sacral decub st 4 POA PLAN OF CARE tele K down to 5.6 nephro follows creat slightly down renal US no hydro, but increased bilateral echogenicity c/w medical renal disease on Na citrate to correct low bicarb ( corrected), family declined Kayexalate, Bicitra helped with decrease in K as well O2 HHN prn CXR negative blood cx negative, urine cx + GNB 2 dif species( colony count 70-80,000), asymptomatic per ID keep off abx, observe cardio follows continue Plavix, statin BP management with low dose of CCB, stable on Cellcept and Prograf, level pending endo eval appreciated continue to hold all oral antiglycemic, only SS prn ; plan to resume when BS better DVT GI prophylaxis bowel regimen wound care case discussed and evaluated by supervising physician Subjective Allergies: Coded Allergies: ADHESIVE TAPE (Verified Allergy, Unknown, Rash, 05/27/16) PLASTIC TAPE-COPIED FROM UNCODED SECTION PENICILLINS (Verified Allergy, Unknown, 06/20/16) PROCAINE (Verified Allergy, Unknown, Rash, 08/19/14) COPIED FRON UNCODED Subjective denies chest pain, SOB, palpitations K down to 5.6 Objective Last 24 Hour Vital Signs Date Time Temp Pulse Resp B/P Pulse Ox O2 Delivery O2 Flow Rate FiO2 09/11/16 12:00 96.4 91 18 123/60 96 Room Air 09/11/16 08:00 97.7 89 18 131/59 99 Room Air 09/11/16 08:00 88 09/11/16 04:00 94 09/11/16 04:00 97.0 98 20 118/61 97 Room Air 21 09/11/16 00:00 98.2 102 20 116/63 97 Room Air 21 09/11/16 00:00 101 09/10/16 20:00 98.2 102 20 113/64 97 Room Air 21 09/10/16 20:00 97 09/10/16 19:10 100 18 Room Air 21 09/10/16 16:00 96 09/10/16 16:00 98.1 97 20 132/72 97 Room Air Intake and Output 09/10/16 09/11/16 19:00 07:00 Output Total 700 ml 1300 ml Balance -700 ml -1300 ml Output Urine Total 700 ml 1300 ml General Appearance: no acute distress, other - A/A/O x 3 HEENT: normocephalic, atraumatic, anicteric, mucous membranes moist, PERRL Respiratory/Chest: lungs clear, no respiratory distress, no accessory muscle use Cardiovascular: normal rate - SR on sanjay , no JVD Abdomen: normal bowel sounds, soft, non tender - obese Extremities: other - bilateral amputee Skin: other Neurologic/Psychiatric: abnormal gait - bedridden , alert, oriented x 3, responsive Microbiology Date/Time Source Procedure Growth Status 09/08/16 14:30 Blood Blood Culture - Preliminary NO GROWTH AFTER 48 HOURS Resulted 09/08/16 16:40 Urine,Clean Catch Urine Culture - Final Escherichia Coli Complete 09/08/16 22:00 Hip Right Gram Stain - Final Resulted 09/08/16 22:00 Wound Culture - Preliminary Gram Negative Martin Resulted Laboratory Tests 09/11/16 11:34: Sodium Level 143, Potassium Level 5.6H, Chloride Level 107, Carbon Dioxide Level 21, Anion Gap 15, Blood Urea Nitrogen 36H, Creatinine 2.8H, Estimat Glomerular Filtration Rate , Glucose Level 180H, Calcium Level 8.8, Total Bilirubin < 0.2, Aspartate Amino Transf (AST/SGOT) 7, Alanine Aminotransferase ( ALT/SGPT) 7, Alkaline Phosphatase 101, Total Protein 5.7L, Albumin 2.5L, Globulin 3.2, Albumin/Globulin Ratio 0.7L, Tacrolimus (Prograf) Level [Pending] Current Medications Medications (Trade) Dose Ordered Sig/Koffi Route PRN Reason Start Time Stop Time Status Last Admin Dose Admin Acetaminophen (Tylenol) 650 mg Q4H PRN ORAL T>100.5 09/08/16 15:45 10/08/16 15:44 Albuterol/ Ipratropium (DuoNeb 0.5-3(2.5)mg/3ml) 3 ml Q6H PRN HHN dyspnea 09/08/16 15:45 09/13/16 15:44 Amlodipine Besylate (Norvasc) 2.5 mg BIDPRN PRN ORAL SBP > 160 09/08/16 15:45 10/08/16 15:44 Clopidogrel Bisulfate (Plavix) 75 mg DAILY ORAL 09/09/16 09:00 10/09/16 08:59 09/11/16 09:32 Collagenase (Santyl) 1 applic DAILY TOPIC 09/10/16 09:00 10/10/16 08:59 09/11/16 09:33 Dextrose (Dextrose 50%) STAT PRN IV Hypoglycemia 09/08/16 15:45 10/08/16 15:44 09/09/16 07:10 Duloxetine HCl (Cymbalta) 30 mg DAILY ORAL 09/09/16 09:00 10/09/16 08:59 09/11/16 09:32 Heparin Sodium (Porcine) (Heparin 5000 units/ml) 5,000 units EVERY 12 HOURS SUBQ 09/08/16 21:00 10/08/16 20:59 09/11/16 09:34 Insulin Aspart (NovoLOG) BEFORE MEALS AND HS SUBQ 09/08/16 21:00 10/08/16 20:59 09/11/16 11:35 Mirtazapine (Remeron) 15 mg BEDTIME ORAL 09/08/16 21:00 10/08/16 20:59 Morphine Sulfate (Morphine Sulfate) 1 mg Q4H PRN IVP PAIN 4-10 09/08/16 15:45 09/15/16 15:44 Mycophenolate Mofetil (Cellcept) 500 mg BID ORAL 09/08/16 18:00 10/08/16 17:59 09/11/16 09:32 Ondansetron HCl (Zofran) 4 mg Q6H PRN IVP Nausea & Vomiting 09/08/16 15:45 10/08/16 15:44 Pantoprazole (Protonix) 40 mg EVERY 12 HOURS ORAL 09/10/16 09:00 10/10/16 08:59 09/11/16 09:32 Polyethylene Glycol (Miralax) 17 gm HSPRN PRN ORAL Constipation 09/08/16 21:00 10/08/16 20:59 Pravastatin Sodium (Pravachol) 20 mg BEDTIME ORAL 09/08/16 21:00 10/08/16 20:59 09/10/16 21:51 Sodium Citrate (Bicitra) 30 ml TID ORAL 09/10/16 10:00 10/10/16 09:59 09/11/16 12:43 Tacrolimus (Prograf) 1 mg BID ORAL 09/08/16 18:00 10/08/16 17:59 09/11/16 09:32 Zolpidem Tartrate (Ambien) 5 mg HSPRN PRN ORAL Insomnia 09/08/16 21:00 10/08/16 20:59 Winston (Alyssa Rosenthal NP Sep 11, 2016 14:39
--- NOTE | 2016-09-11 14:50 | Cardiology Progress Note ---
Assessment/Plan Assessment/Plan Post transplant hyperkalemia, improving renal injury, improving hemodynamically stable tacrolimus level is pending d/w nurse to get results ZITA Subjective Subjective coverage for Dr Velázquez patient is resting, family at the bedside confused, not agitated denies chest pain or dyspnea Objective Last 24 Hour Vital Signs Date Time Temp Pulse Resp B/P Pulse Ox O2 Delivery O2 Flow Rate FiO2 09/11/16 12:00 96.4 91 18 123/60 96 Room Air 09/11/16 08:00 97.7 89 18 131/59 99 Room Air 09/11/16 08:00 88 09/11/16 04:00 94 09/11/16 04:00 97.0 98 20 118/61 97 Room Air 21 09/11/16 00:00 98.2 102 20 116/63 97 Room Air 21 09/11/16 00:00 101 09/10/16 20:00 98.2 102 20 113/64 97 Room Air 21 09/10/16 20:00 97 09/10/16 19:10 100 18 Room Air 21 09/10/16 16:00 96 09/10/16 16:00 98.1 97 20 132/72 97 Room Air General Appearance: lethargic EENT: PERRL/EOMI Neck: JVD Rhythm: NSR, ST Cardiovascular: regular rhythm Respiratory/Chest: crackles/rales Abdomen: distended Extremities: trace edema Intake and Output 09/10/16 09/11/16 19:00 07:00 Output Total 700 ml 1300 ml Balance -700 ml -1300 ml Output Urine Total 700 ml 1300 ml Laboratory Tests Test 09/11/16 11:34 Sodium Level 143 mEQ/L (135-145) Potassium Level 5.6 mEQ/L (3.4-4.9) H Chloride Level 107 mEQ/L (98-107) Carbon Dioxide Level 21 mEQ/L (20-30) Anion Gap 15 (5-15) Blood Urea Nitrogen 36 mg/dL (7-23) H Creatinine 2.8 mg/dL (0.7-1.2) H Estimat Glomerular Filtration Rate mL/min (>60) Glucose Level 180 mg/dL (74-106) H Calcium Level 8.8 mg/dL (8.6-10.2) Total Bilirubin < 0.2 mg/dL (0.0-1.2) Aspartate Amino Transf (AST/SGOT) 7 U/L (5-40) Alanine Aminotransferase (ALT/SGPT) 7 U/L (3-41) Alkaline Phosphatase 101 U/L (40-129) Total Protein 5.7 g/dL (6.6-8.7) L Albumin 2.5 g/dL (3.5-5.2) L Globulin 3.2 g/dL Albumin/Globulin Ratio 0.7 (1.0-2.7) L Tacrolimus (Prograf) Level Pending Microbiology Date/Time Source Procedure Growth Status 09/08/16 16:40 Urine,Clean Catch Urine Culture - Final Escherichia Coli Complete 09/08/16 22:00 Hip Right Gram Stain - Final Resulted 09/08/16 22:00 Wound Culture - Preliminary Gram Negative Martin Resulted ERIN BERRY Sep 11, 2016 14:50
[2016-09-11 16:00] VITALS: BP 129/83
[2016-09-11 20:00] VITALS: BP 111/69
[2016-09-12] VITALS: BP 116/70
[2016-09-12 04:00] VITALS: BP 119/56
[2016-09-12] MEDS: NovoLOG Insulin Flexpen SUBQ SCH ×4 (06:23→21:00)
[2016-09-12 08:00] VITALS: BP 126/76
[2016-09-12 08:48] LABS: MEAN CORPUSCULAR HEMOGLOBIN 27.6 PG (27.0-31.0); MEAN CORPUSCULAR VOLUME 95 FL (80-99); MEAN PLATELET VOLUME 4.8 FL (6.5-10.1); PLATELET COUNT 314 K/UL (150-450); RED BLOOD COUNT 2.82 M/UL (4.70-6.10); RED CELL DISTRIBUTION WIDTH 18.2 % (11.6-14.8); WHITE BLOOD COUNT 5.8 K/UL (4.8-10.8)
--- NOTE | 2016-09-12 08:52 | General Progress Note ---
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 SNOMED: 075408234 (3) Hypoglycemia ICD Codes: E16.2 - Hypoglycemia, unspecified SNOMED: 297449200 (4) Heart transplant status ICD Codes: Z94.1 - Heart transplant status SNOMED: 98578808, 66824920, 201724976, 132342708 Assessment/Plan diabetes is well controlled on SSI no need to add further diabetic agents for now avoid concomitant use of Glyburide and Lantus after DC due to elevated risk of hypoglycemia continue sliding scale Novolog as his BG values are stable Subjective Allergies: Coded Allergies: ADHESIVE TAPE (Verified Allergy, Unknown, Rash, 05/27/16) PLASTIC TAPE-COPIED FROM UNCODED SECTION PENICILLINS (Verified Allergy, Unknown, 06/20/16) PROCAINE (Verified Allergy, Unknown, Rash, 08/19/14) COPIED FRON UNCODED All Systems: reviewed and negative except above Subjective events noted glucose values are stable Objective Last 24 Hour Vital Signs Date Time Temp Pulse Resp B/P Pulse Ox O2 Delivery O2 Flow Rate FiO2 09/12/16 04:00 97 09/12/16 04:00 98.2 99 20 119/56 95 Room Air 09/12/16 00:00 95 09/12/16 00:00 98.2 96 20 116/70 96 Room Air 09/11/16 20:00 97.7 97 21 111/69 95 Room Air 09/11/16 20:00 97 09/11/16 19:12 90 18 Room Air 21 09/11/16 16:00 97.0 95 19 129/83 96 Room Air 09/11/16 16:00 96 09/11/16 12:00 98 09/11/16 12:00 96.4 91 18 123/60 96 Room Air Intake and Output 09/11/16 09/12/16 19:00 07:00 Output Total 500 ml 900 ml Balance -500 ml -900 ml Output Urine Total 500 ml 900 ml Laboratory Tests 09/11/16 11:34: Sodium Level 143, Potassium Level 5.6H, Chloride Level 107, Carbon Dioxide Level 21, Anion Gap 15, Blood Urea Nitrogen 36H, Creatinine 2.8H, Estimat Glomerular Filtration Rate , Glucose Level 180H, Calcium Level 8.8, Total Bilirubin < 0.2, Aspartate Amino Transf (AST/SGOT) 7, Alanine Aminotransferase ( ALT/SGPT) 7, Alkaline Phosphatase 101, Total Protein 5.7L, Albumin 2.5L, Globulin 3.2, Albumin/Globulin Ratio 0.7L, Tacrolimus (Prograf) Level [Pending] 09/12/16 07:32: Sodium Level [Pending], Potassium Level [Pending], Chloride Level [Pending], Carbon Dioxide Level [Pending], Blood Urea Nitrogen [Pending], Creatinine [ Pending], Estimat Glomerular Filtration Rate [Pending], Glucose Level [Pending] , Calcium Level [Pending], White Blood Count [Pending], Red Blood Count [Pending ], Hemoglobin [Pending], Hematocrit [Pending], Mean Corpuscular Volume [Pending] , Mean Corpuscular Hemoglobin [Pending], Mean Corpuscular Hemoglobin Concent [ Pending], Red Cell Distribution Width [Pending], Platelet Count [Pending], Mean Platelet Volume [Pending], Neutrophils (%) (Auto) [Pending], Lymphocytes (%) ( Auto) [Pending], Monocytes (%) (Auto) [Pending], Eosinophils (%) (Auto) [Pending ], Basophils (%) (Auto) [Pending] Height (Feet): 5 Height (Inches): 0.00 Weight (Pounds): 170 General Appearance: no apparent distress EENT: PERRL/EOMI Neck: normal alignment Cardiovascular: normal peripheral pulses Respiratory/Chest: chest wall non-tender Abdomen: normal bowel sounds Edema: 1+ Arm (L), 1+ Arm (R), 1+ Leg (L), 1+ Leg (R), 1+ Pedal (L), 1+ Pedal ( R), 1+ Generalized Objective Current Medications Medications (Trade) Dose Ordered Sig/Koffi Route PRN Reason Start Time Stop Time Status Last Admin Dose Admin Acetaminophen (Tylenol) 650 mg Q4H PRN ORAL T>100.5 09/08/16 15:45 10/08/16 15:44 Albuterol/ Ipratropium (DuoNeb 0.5-3(2.5)mg/3ml) 3 ml Q6H PRN HHN dyspnea 09/08/16 15:45 09/13/16 15:44 Amlodipine Besylate (Norvasc) 2.5 mg BIDPRN PRN ORAL SBP > 160 09/08/16 15:45 10/08/16 15:44 Clopidogrel Bisulfate (Plavix) 75 mg DAILY ORAL 09/09/16 09:00 10/09/16 08:59 09/11/16 09:32 Collagenase (Santyl) 1 applic DAILY TOPIC 09/10/16 09:00 10/10/16 08:59 09/11/16 09:33 Dextrose (Dextrose 50%) STAT PRN IV Hypoglycemia 09/08/16 15:45 10/08/16 15:44 09/09/16 07:10 Duloxetine HCl (Cymbalta) 30 mg DAILY ORAL 09/09/16 09:00 10/09/16 08:59 09/11/16 09:32 Heparin Sodium (Porcine) (Heparin 5000 units/ml) 5,000 units EVERY 12 HOURS SUBQ 09/08/16 21:00 10/08/16 20:59 09/11/16 09:34 Insulin Aspart (NovoLOG) BEFORE MEALS AND HS SUBQ 09/08/16 21:00 10/08/16 20:59 09/11/16 21:52 Mirtazapine (Remeron) 15 mg BEDTIME ORAL 09/08/16 21:00 10/08/16 20:59 09/11/16 21:48 Morphine Sulfate (Morphine Sulfate) 1 mg Q4H PRN IVP PAIN 4-10 09/08/16 15:45 09/15/16 15:44 Mycophenolate Mofetil (Cellcept) 500 mg BID ORAL 09/08/16 18:00 10/08/16 17:59 09/11/16 17:32 Ondansetron HCl (Zofran) 4 mg Q6H PRN IVP Nausea & Vomiting 09/08/16 15:45 10/08/16 15:44 Pantoprazole (Protonix) 40 mg EVERY 12 HOURS ORAL 09/10/16 09:00 10/10/16 08:59 09/11/16 21:48 Polyethylene Glycol (Miralax) 17 gm HSPRN PRN ORAL Constipation 09/08/16 21:00 10/08/16 20:59 Pravastatin Sodium (Pravachol) 20 mg BEDTIME ORAL 09/08/16 21:00 10/08/16 20:59 09/11/16 21:48 Sodium Citrate (Bicitra) 30 ml TID ORAL 09/10/16 10:00 10/10/16 09:59 09/11/16 17:32 Tacrolimus (Prograf) 1 mg BID ORAL 09/08/16 18:00 10/08/16 17:59 09/11/16 17:32 Zolpidem Tartrate (Ambien) 5 mg HSPRN PRN ORAL Insomnia 09/08/16 21:00 10/08/16 20:59 Item Value Date Time Bedside Blood Glucose 153 mg/dl H 09/12/16 0630 Bedside Blood Glucose 170 mg/dl H 09/11/162151 Bedside Blood Glucose 198 mg/dl H 09/11/16 1629 FUAD SOTELO Sep 12, 2016 08:52
[2016-09-12] MEDS: DULoxetine 30mg cap ORAL SCH ×2 (09:00→09:50)
[2016-09-12 09:06] LABS: ANION GAP 16 (5-15); CALCIUM 8.4 mg/dL (8.6-10.2); CARBON DIOXIDE 21 mEQ/L (20-30); CHLORIDE 107 mEQ/L (98-107); CREATININE 2.6 mg/dL (0.7-1.2); HEMOLYSIS 3; POTASSIUM 4.8 mEQ/L (3.4-4.9); SODIUM 144 mEQ/L (135-145)
[2016-09-12] MEDS: Sodium Citrate 30ml ORAL SCH ×3 (09:50→17:29)
[2016-09-12] MEDS: Mycophenolate 250mg cap ORAL SCH ×2 (09:51→17:30)
[2016-09-12] MEDS ORDERED: 1/2 NS 1000ml IV ONE (09:51)
[2016-09-12] MEDS: Heparin 5000 units/ml inj SUBQ SCH ×2 (09:54→21:00)
[2016-09-12 11:04] LABS: EOSINOPHILS % (MANUAL) 3 % (0-3); LYMPHOCYTES % (MANUAL) 18 % (20-45); NEUTROPHILS % (MANUAL) 71 % (45-75); TOTAL CELLS COUNTED 100
[2016-09-12 11:05] LABS: BAND NEUTROPHILS % (MANUAL) 0 % (0-8); BASOPHILS % (MANUAL) 0 % (0-2); PLATELET ESTIMATE ADEQUATE; PLATELET MORPHOLOGY NORMAL
[2016-09-12 11:06] LABS: ANISOCYTOSIS 2+
[2016-09-12 12:00] VITALS: BP 139/68
--- NOTE | 2016-09-12 12:33 | General Progress Note ---
Assessment/Plan Status: stable Status Narrative K normalized Assessment/Plan Acute Renal Failure- Cr higher HyperKalemia Superimposed on CRI due to DM / HTN PVD s/p amputation- Anemia s/p Heart transplant sacral decub stage 4 UTI plan: Labs OK Slow Hydrate- Monitor BS transfuse- as needed wound care- antibiotics- monitor renal parameters- avoid nephrotoxics Subjective ROS Limited/Unobtainable: No Constitutional: Reports: malaise Allergies: Coded Allergies: ADHESIVE TAPE (Verified Allergy, Unknown, Rash, 05/27/16) PLASTIC TAPE-COPIED FROM UNCODED SECTION PENICILLINS (Verified Allergy, Unknown, 06/20/16) PROCAINE (Verified Allergy, Unknown, Rash, 08/19/14) COPIED FRON UNCODED Objective Last 24 Hour Vital Signs Date Time Temp Pulse Resp B/P Pulse Ox O2 Delivery O2 Flow Rate FiO2 09/12/16 12:00 98.1 78 18 139/68 98 Room Air 09/12/16 08:00 97.0 93 18 126/76 95 Room Air 09/12/16 08:00 92 09/12/16 07:30 51 18 Room Air 21 09/12/16 04:00 97 09/12/16 04:00 98.2 99 20 119/56 95 Room Air 09/12/16 00:00 95 09/12/16 00:00 98.2 96 20 116/70 96 Room Air 09/11/16 20:00 97.7 97 21 111/69 95 Room Air 09/11/16 20:00 97 09/11/16 19:12 90 18 Room Air 21 09/11/16 16:00 97.0 95 19 129/83 96 Room Air 09/11/16 16:00 96 Intake and Output 09/11/16 09/12/16 19:00 07:00 Output Total 500 ml 900 ml Balance -500 ml -900 ml Output Urine Total 500 ml 900 ml Laboratory Tests 09/12/16 07:32: White Blood Count 5.8, Red Blood Count 2.82L, Hemoglobin 7.8L, Hematocrit 26.8L , Mean Corpuscular Volume 95, Mean Corpuscular Hemoglobin 27.6, Mean Corpuscular Hemoglobin Concent 29.0L, Red Cell Distribution Width 18.2H, Platelet Count 314, Mean Platelet Volume 4.8L, Neutrophils (%) (Auto) , Lymphocytes (%) (Auto) , Monocytes (%) (Auto) , Eosinophils (%) (Auto) , Basophils (%) (Auto) , Differential Total Cells Counted 100, Neutrophils % ( Manual) 71, Lymphocytes % (Manual) 18L, Monocytes % (Manual) 8, Eosinophils % ( Manual) 3, Basophils % (Manual) 0, Band Neutrophils 0, Platelet Estimate Adequate, Platelet Morphology Normal, Anisocytosis 2+, Sodium Level 144, Potassium Level 4.8, Chloride Level 107, Carbon Dioxide Level 21, Anion Gap 16H , Blood Urea Nitrogen 36H, Creatinine 2.6H, Estimat Glomerular Filtration Rate , Glucose Level 150H, Calcium Level 8.4L Height (Feet): 5 Height (Inches): 0.00 Weight (Pounds): 170 General Appearance: no apparent distress Objective PE not changed BRIJESH CALDERON Sep 12, 2016 12:33
--- NOTE | 2016-09-12 13:35 | Pulmonology Progress Note ---
Assessment/Plan Assessment/Plan ASSESSMENT acute on chronic renal falirue acute hyperkalemia s/p heart transplant DM with end organ damage recurrent episodes of hypoglycemia ( at home) PVD bilateral amputee anemia HTN constipation sacral decub st 4 POA PLAN OF CARE tele K down to normal nephro follows creat with trend down renal US no hydro, but increased bilateral echogenicity c/w medical renal disease on Na citrate to correct low bicarb ( corrected), family declined Kayexalate, Bicitra helped with decrease in K as well O2 HHN prn CXR negative blood cx negative, urine cx + GNB 2 dif species( colony count 70-80,000), asymptomatic per ID keep off abx, observe cardio follows continue Plavix, statin BP management with low dose of CCB, stable on Cellcept and Prograf, level pending transfuse 1 u PRBC today, slowly add EPO bid ( dsicused with nephro) endo eval appreciated continue to hold all oral antiglycemic, only SS prn ; plan to resume when BS better DVT GI prophylaxis bowel regimen wound care case discussed and evaluated by supervising physician Subjective Allergies: Coded Allergies: ADHESIVE TAPE (Verified Allergy, Unknown, Rash, 05/27/16) PLASTIC TAPE-COPIED FROM UNCODED SECTION PENICILLINS (Verified Allergy, Unknown, 06/20/16) PROCAINE (Verified Allergy, Unknown, Rash, 08/19/14) COPIED FRON UNCODED Subjective denies chest pain, SOB, palpitations K down to normal HH down to 7.8/26.8 creat trending down Objective Last 24 Hour Vital Signs Date Time Temp Pulse Resp B/P Pulse Ox O2 Delivery O2 Flow Rate FiO2 09/12/16 12:00 91 09/12/16 12:00 98.1 78 18 139/68 98 Room Air 09/12/16 08:00 97.0 93 18 126/76 95 Room Air 09/12/16 08:00 92 09/12/16 07:30 51 18 Room Air 21 09/12/16 04:00 97 09/12/16 04:00 98.2 99 20 119/56 95 Room Air 09/12/16 00:00 95 09/12/16 00:00 98.2 96 20 116/70 96 Room Air 09/11/16 20:00 97.7 97 21 111/69 95 Room Air 09/11/16 20:00 97 09/11/16 19:12 90 18 Room Air 21 09/11/16 16:00 97.0 95 19 129/83 96 Room Air 09/11/16 16:00 96 Intake and Output 09/11/16 09/12/16 19:00 07:00 Output Total 500 ml 900 ml Balance -500 ml -900 ml Output Urine Total 500 ml 900 ml Objective General Appearance: no acute distress, other - A/A/O x 3 HEENT: normocephalic, atraumatic, anicteric, mucous membranes moist, PERRL Respiratory/Chest: lungs clear, no respiratory distress, no accessory muscle use Cardiovascular: normal rate - SR on sanjay , no JVD Abdomen: normal bowel sounds, soft, non tender - obese Extremities: other - bilateral amputee Skin: other Neurologic/Psychiatric: abnormal gait - bedridden , alert, oriented x 3, responsive Laboratory Tests 09/12/16 07:32: White Blood Count 5.8, Red Blood Count 2.82L, Hemoglobin 7.8L, Hematocrit 26.8L , Mean Corpuscular Volume 95, Mean Corpuscular Hemoglobin 27.6, Mean Corpuscular Hemoglobin Concent 29.0L, Red Cell Distribution Width 18.2H, Platelet Count 314, Mean Platelet Volume 4.8L, Neutrophils (%) (Auto) , Lymphocytes (%) (Auto) , Monocytes (%) (Auto) , Eosinophils (%) (Auto) , Basophils (%) (Auto) , Differential Total Cells Counted 100, Neutrophils % ( Manual) 71, Lymphocytes % (Manual) 18L, Monocytes % (Manual) 8, Eosinophils % ( Manual) 3, Basophils % (Manual) 0, Band Neutrophils 0, Platelet Estimate Adequate, Platelet Morphology Normal, Anisocytosis 2+, Sodium Level 144, Potassium Level 4.8, Chloride Level 107, Carbon Dioxide Level 21, Anion Gap 16H , Blood Urea Nitrogen 36H, Creatinine 2.6H, Estimat Glomerular Filtration Rate , Glucose Level 150H, Calcium Level 8.4L Current Medications Medications (Trade) Dose Ordered Sig/Koffi Route PRN Reason Start Time Stop Time Status Last Admin Dose Admin Acetaminophen (Tylenol) 650 mg Q4H PRN ORAL T>100.5 09/08/16 15:45 10/08/16 15:44 Albuterol/ Ipratropium (DuoNeb 0.5-3(2.5)mg/3ml) 3 ml Q6H PRN HHN dyspnea 09/08/16 15:45 09/13/16 15:44 Amlodipine Besylate (Norvasc) 2.5 mg BIDPRN PRN ORAL SBP > 160 09/08/16 15:45 10/08/16 15:44 Clopidogrel Bisulfate (Plavix) 75 mg DAILY ORAL 09/09/16 09:00 10/09/16 08:59 09/12/16 09:51 Collagenase (Santyl) 1 applic DAILY TOPIC 09/10/16 09:00 10/10/16 08:59 09/12/16 09:49 Dextrose (Dextrose 50%) STAT PRN IV Hypoglycemia 09/08/16 15:45 10/08/16 15:44 09/09/16 07:10 Duloxetine HCl (Cymbalta) 30 mg DAILY ORAL 09/09/16 09:00 10/09/16 08:59 09/11/16 09:32 Heparin Sodium (Porcine) (Heparin 5000 units/ml) 5,000 units EVERY 12 HOURS SUBQ 09/08/16 21:00 10/08/16 20:59 09/12/16 09:54 Insulin Aspart (NovoLOG) BEFORE MEALS AND HS SUBQ 09/08/16 21:00 10/08/16 20:59 09/12/16 11:16 Mirtazapine (Remeron) 15 mg BEDTIME ORAL 09/08/16 21:00 10/08/16 20:59 09/11/16 21:48 Morphine Sulfate (Morphine Sulfate) 1 mg Q4H PRN IVP PAIN 4-10 09/08/16 15:45 09/15/16 15:44 Mycophenolate Mofetil (Cellcept) 500 mg BID ORAL 09/08/16 18:00 10/08/16 17:59 09/12/16 09:51 Ondansetron HCl (Zofran) 4 mg Q6H PRN IVP Nausea & Vomiting 09/08/16 15:45 10/08/16 15:44 Pantoprazole (Protonix) 40 mg EVERY 12 HOURS ORAL 09/10/16 09:00 10/10/16 08:59 09/12/16 09:50 Polyethylene Glycol (Miralax) 17 gm HSPRN PRN ORAL Constipation 09/08/16 21:00 10/08/16 20:59 Pravastatin Sodium (Pravachol) 20 mg BEDTIME ORAL 09/08/16 21:00 10/08/16 20:59 09/11/16 21:48 Sodium Citrate (Bicitra) 30 ml TID ORAL 09/10/16 10:00 10/10/16 09:59 09/12/16 13:09 Tacrolimus (Prograf) 1 mg BID ORAL 09/08/16 18:00 10/08/16 17:59 09/12/16 09:50 Zolpidem Tartrate (Ambien) 5 mg HSPRN PRN ORAL Insomnia 09/08/16 21:00 10/08/16 20:59 [facility]Alyssa NP Sep 12, 2016 13:35
[2016-09-12 16:00] VITALS: BP 110/66
--- NOTE | 2016-09-12 16:41 | Cardiology Progress Note ---
Assessment/Plan Assessment/Plan Post transplant kidney function stable, no evidence of fluid overloead, tacrolimus level still pending, discused with the nurse, but she does not know how to obtain results Subjective Subjective patient is resting, family at the bedside confused, not agitated denies chest pain or dyspnea Objective Last 24 Hour Vital Signs Date Time Temp Pulse Resp B/P Pulse Ox O2 Delivery O2 Flow Rate FiO2 09/12/16 16:00 98.4 96 19 110/66 99 Room Air 09/12/16 12:00 91 09/12/16 12:00 98.1 78 18 139/68 98 Room Air 09/12/16 08:00 97.0 93 18 126/76 95 Room Air 09/12/16 08:00 92 09/12/16 07:30 51 18 Room Air 21 09/12/16 04:00 97 09/12/16 04:00 98.2 99 20 119/56 95 Room Air 09/12/16 00:00 95 09/12/16 00:00 98.2 96 20 116/70 96 Room Air 09/11/16 20:00 97.7 97 21 111/69 95 Room Air 09/11/16 20:00 97 09/11/16 19:12 90 18 Room Air 21 General Appearance: other - slightly obtunded EENT: PERRL/EOMI Neck: JVD Rhythm: NSR Cardiovascular: regular rhythm, tachycardia Respiratory/Chest: crackles/rales Abdomen: distended Intake and Output 09/11/16 09/12/16 19:00 07:00 Output Total 500 ml 900 ml Balance -500 ml -900 ml Output Urine Total 500 ml 900 ml Laboratory Tests Test 09/12/16 07:32 White Blood Count 5.8 K/UL (4.8-10.8) Red Blood Count 2.82 M/UL (4.70-6.10) L Hemoglobin 7.8 G/DL (14.2-18.0) L Hematocrit 26.8 % (42.0-52.0) L Mean Corpuscular Volume 95 FL (80-99) Mean Corpuscular Hemoglobin 27.6 PG (27.0-31.0) Mean Corpuscular Hemoglobin Concent 29.0 G/DL (32.0-36.0) L Red Cell Distribution Width 18.2 % (11.6-14.8) H Platelet Count 314 K/UL (150-450) Mean Platelet Volume 4.8 FL (6.5-10.1) L Neutrophils (%) (Auto) % (45.0-75.0) Lymphocytes (%) (Auto) % (20.0-45.0) Monocytes (%) (Auto) % (1.0-10.0) Eosinophils (%) (Auto) % (0.0-3.0) Basophils (%) (Auto) % (0.0-2.0) Differential Total Cells Counted 100 Neutrophils % (Manual) 71 % (45-75) Lymphocytes % (Manual) 18 % (20-45) L Monocytes % (Manual) 8 % (1-10) Eosinophils % (Manual) 3 % (0-3) Basophils % (Manual) 0 % (0-2) Band Neutrophils 0 % (0-8) Platelet Estimate Adequate Platelet Morphology Normal Anisocytosis 2+ Sodium Level 144 mEQ/L (135-145) Potassium Level 4.8 mEQ/L (3.4-4.9) Chloride Level 107 mEQ/L (98-107) Carbon Dioxide Level 21 mEQ/L (20-30) Anion Gap 16 (5-15) H Blood Urea Nitrogen 36 mg/dL (7-23) H Creatinine 2.6 mg/dL (0.7-1.2) H Estimat Glomerular Filtration Rate mL/min (>60) Glucose Level 150 mg/dL (74-106) H Calcium Level 8.4 mg/dL (8.6-10.2) ERIN CRUZ Sep 12, 2016 16:41
[2016-09-12 20:00] VITALS: BP 109/59
[2016-09-13] VITALS: BP 140/63
[2016-09-13 04:00] VITALS: BP 149/71
[2016-09-13] MEDS: NovoLOG Insulin Flexpen SUBQ SCH ×3 (06:30→15:58)
[2016-09-13 06:46] LABS: MEAN CORPUSCULAR HEMOGLOBIN 27.7 PG (27.0-31.0); MEAN CORPUSCULAR HGB CONC 29.2 G/DL (32.0-36.0); MEAN CORPUSCULAR VOLUME 95 FL (80-99); MEAN PLATELET VOLUME 4.9 FL (6.5-10.1); PLATELET COUNT 296 K/UL (150-450); RED BLOOD COUNT 3.09 M/UL (4.70-6.10); RED CELL DISTRIBUTION WIDTH 17.5 % (11.6-14.8); WHITE BLOOD COUNT 5.5 K/UL (4.8-10.8)
[2016-09-13 07:24] LABS: ANION GAP 15 (5-15); CALCIUM 8.8 mg/dL (8.6-10.2); CARBON DIOXIDE 23 mEQ/L (20-30); CHLORIDE 108 mEQ/L (98-107); CREATININE 2.7 mg/dL (0.7-1.2); HEMOLYSIS 7; POTASSIUM 4.7 mEQ/L (3.4-4.9); SODIUM 146 mEQ/L (135-145)
[2016-09-13 08:04] VITALS: BP 144/82
[2016-09-13] MEDS: DULoxetine 30mg cap ORAL SCH (08:55)
[2016-09-13] MEDS: Sodium Citrate 30ml ORAL SCH ×2 (08:55→12:20)
[2016-09-13] MEDS: Mycophenolate 250mg cap ORAL SCH (08:55)
[2016-09-13] MEDS: Heparin 5000 units/ml inj SUBQ SCH (08:58)
--- NOTE | 2016-09-13 09:40 | Infectious Diseases Prog Note ---
Assessment/Plan Assessment/Plan A:L The patient is a 76-year-old male with Doubt UTI UCX : E Coli UA : pyuria, due to chronic Barakat catheter SP hypoglycemia CABG CADHTN Asthma Appendectomy History of bilateral lower extremity amputation Osteoarthritis Diabetes Hypothyroidism Anemia PLAN: monitor the patient off of antibiotics Monitor CBC Monitor BMP Subjective Constitutional: Denies: anorexia, chills, drenching sweats, fatigue, fever, no symptoms, other Allergies: Coded Allergies: ADHESIVE TAPE (Verified Allergy, Unknown, Rash, 05/27/16) PLASTIC TAPE-COPIED FROM UNCODED SECTION PENICILLINS (Verified Allergy, Unknown, 06/20/16) PROCAINE (Verified Allergy, Unknown, Rash, 08/19/14) COPIED FRON UNCODED Objective Vital Signs Last 24 Hour Vital Signs Date Time Temp Pulse Resp B/P Pulse Ox O2 Delivery O2 Flow Rate FiO2 09/13/16 08:04 97.7 90 18 144/82 97 Room Air 09/13/16 04:00 97.7 89 19 149/71 95 Room Air 09/13/16 04:00 91 09/13/16 00:00 97.0 94 20 140/63 94 Room Air 09/13/16 00:00 93 09/12/16 20:00 98.4 94 19 109/59 95 Room Air 09/12/16 20:00 93 09/12/16 19:30 54 18 Room Air 21 09/12/16 16:00 98.4 96 19 110/66 99 Room Air 09/12/16 16:00 93 09/12/16 12:00 91 09/12/16 12:00 98.1 78 18 139/68 98 Room Air Height (Feet): 5 Height (Inches): 0.00 Weight (Pounds): 170 HEENT: anicteric Respiratory/Chest: no respiratory distress Cardiovascular: normal rate Abdomen: non distended Laboratory Tests Test 09/13/16 05:45 White Blood Count 5.5 K/UL (4.8-10.8) Red Blood Count 3.09 M/UL (4.70-6.10) L Hemoglobin 8.6 G/DL (14.2-18.0) L Hematocrit 29.4 % (42.0-52.0) L Mean Corpuscular Volume 95 FL (80-99) Mean Corpuscular Hemoglobin 27.7 PG (27.0-31.0) Mean Corpuscular Hemoglobin Concent 29.2 G/DL (32.0-36.0) L Red Cell Distribution Width 17.5 % (11.6-14.8) H Platelet Count 296 K/UL (150-450) Mean Platelet Volume 4.9 FL (6.5-10.1) L Neutrophils (%) (Auto) % (45.0-75.0) Lymphocytes (%) (Auto) % (20.0-45.0) Monocytes (%) (Auto) % (1.0-10.0) Eosinophils (%) (Auto) % (0.0-3.0) Basophils (%) (Auto) % (0.0-2.0) Neutrophils % (Manual) Pending Lymphocytes % (Manual) Pending Platelet Estimate Pending Platelet Morphology Pending Sodium Level 146 mEQ/L (135-145) H Potassium Level 4.7 mEQ/L (3.4-4.9) Chloride Level 108 mEQ/L (98-107) H Carbon Dioxide Level 23 mEQ/L (20-30) Anion Gap 15 (5-15) Blood Urea Nitrogen 36 mg/dL (7-23) H Creatinine 2.7 mg/dL (0.7-1.2) H Estimat Glomerular Filtration Rate mL/min (>60) Glucose Level 164 mg/dL (74-106) H Calcium Level 8.8 mg/dL (8.6-10.2) Current Medications Medications (Trade) Dose Ordered Sig/Koffi Route PRN Reason Start Time Stop Time Status Last Admin Dose Admin Acetaminophen (Tylenol) 650 mg Q4H PRN ORAL T>100.5 09/08/16 15:45 10/08/16 15:44 Albuterol/ Ipratropium (DuoNeb 0.5-3(2.5)mg/3ml) 3 ml Q6H PRN HHN dyspnea 09/08/16 15:45 09/13/16 15:44 Amlodipine Besylate (Norvasc) 2.5 mg BIDPRN PRN ORAL SBP > 160 09/08/16 15:45 10/08/16 15:44 Clopidogrel Bisulfate (Plavix) 75 mg DAILY ORAL 09/09/16 09:00 10/09/16 08:59 09/13/16 08:55 Collagenase (Santyl) 1 applic DAILY TOPIC 09/10/16 09:00 10/10/16 08:59 09/13/16 08:58 Dextrose (Dextrose 50%) STAT PRN IV Hypoglycemia 09/08/16 15:45 10/08/16 15:44 09/09/16 07:10 Duloxetine HCl (Cymbalta) 30 mg DAILY ORAL 09/09/16 09:00 10/09/16 08:59 09/13/16 08:55 Epoetin Mars (Procrit (for non ESRD use)) 7,000 units MoTh@2100 SUBQ 09/13/16 21:00 10/13/16 20:59 Heparin Sodium (Porcine) (Heparin 5000 units/ml) 5,000 units EVERY 12 HOURS SUBQ 09/08/16 21:00 10/08/16 20:59 09/13/16 08:58 Insulin Aspart (NovoLOG) BEFORE MEALS AND HS SUBQ 09/08/16 21:00 10/08/16 20:59 09/12/16 17:28 Mirtazapine (Remeron) 15 mg BEDTIME ORAL 09/08/16 21:00 10/08/16 20:59 09/12/16 21:58 Morphine Sulfate (Morphine Sulfate) 1 mg Q4H PRN IVP PAIN 4-10 09/08/16 15:45 09/15/16 15:44 Mycophenolate Mofetil (Cellcept) 500 mg BID ORAL 09/08/16 18:00 10/08/16 17:59 09/13/16 08:55 Ondansetron HCl (Zofran) 4 mg Q6H PRN IVP Nausea & Vomiting 09/08/16 15:45 10/08/16 15:44 Pantoprazole (Protonix) 40 mg EVERY 12 HOURS ORAL 09/10/16 09:00 10/10/16 08:59 09/13/16 08:55 Polyethylene Glycol (Miralax) 17 gm HSPRN PRN ORAL Constipation 09/08/16 21:00 10/08/16 20:59 Pravastatin Sodium (Pravachol) 20 mg BEDTIME ORAL 09/08/16 21:00 10/08/16 20:59 09/12/16 21:58 Sodium Citrate (Bicitra) 30 ml TID ORAL 09/10/16 10:00 10/10/16 09:59 09/12/16 17:29 Tacrolimus (Prograf) 1 mg BID ORAL 09/08/16 18:00 10/08/16 17:59 09/13/16 08:55 Zolpidem Tartrate (Ambien) 5 mg HSPRN PRN ORAL Insomnia 09/08/16 21:00 10/08/16 20:59 DIANA NORRIS M.D. September 13, 2016 09:40
[2016-09-13 10:05] LABS: BAND NEUTROPHILS % (MANUAL) 0 % (0-8); BASOPHILS % (MANUAL) 0 % (0-2); EOSINOPHILS % (MANUAL) 4 % (0-3); LYMPHOCYTES % (MANUAL) 17 % (20-45); NEUTROPHILS % (MANUAL) 67 % (45-75); PLATELET ESTIMATE ADEQUATE; PLATELET MORPHOLOGY NORMAL; TOTAL CELLS COUNTED 100
[2016-09-13 10:06] LABS: ANISOCYTOSIS 1+; HYPOCHROMASIA 1+
[2016-09-13 12:00] VITALS: BP 143/72
--- NOTE | 2016-09-13 13:41 | General Progress Note ---
Assessment/Plan Status: stable - from renal stand Status Narrative Cr base line- K ....WNL Assessment/Plan Acute Renal Failure- on CKD HyperKalemia, resolved Superimposed on CRI due to DM / HTN PVD s/p amputation- Anemia s/p Heart transplant sacral decub stage 4 UTI plan: Labs OK Slow Hydrate- Monitor BS transfuse- as needed wound care- antibiotics- monitor renal parameters- avoid nephrotoxics DC planning?? Subjective ROS Limited/Unobtainable: No Allergies: Coded Allergies: ADHESIVE TAPE (Verified Allergy, Unknown, Rash, 05/27/16) PLASTIC TAPE-COPIED FROM UNCODED SECTION PENICILLINS (Verified Allergy, Unknown, 06/20/16) PROCAINE (Verified Allergy, Unknown, Rash, 08/19/14) COPIED FRON UNCODED Objective Last 24 Hour Vital Signs Date Time Temp Pulse Resp B/P Pulse Ox O2 Delivery O2 Flow Rate FiO2 09/13/16 12:00 97.7 94 20 143/72 98 Room Air 09/13/16 08:04 97.7 90 18 144/82 97 Room Air 09/13/16 08:00 98 09/13/16 07:40 90 18 Room Air 21 09/13/16 04:00 97.7 89 19 149/71 95 Room Air 09/13/16 04:00 91 09/13/16 00:00 97.0 94 20 140/63 94 Room Air 09/13/16 00:00 93 09/12/16 20:00 98.4 94 19 109/59 95 Room Air 09/12/16 20:00 93 09/12/16 19:30 54 18 Room Air 21 09/12/16 16:00 98.4 96 19 110/66 99 Room Air 09/12/16 16:00 93 Intake and Output 09/12/16 09/13/16 19:00 07:00 Output Total 700 ml 580 ml Balance -700 ml -580 ml Output Urine Total 700 ml 580 ml Laboratory Tests 09/13/16 05:45: White Blood Count 5.5, Red Blood Count 3.09L, Hemoglobin 8.6L, Hematocrit 29.4L , Mean Corpuscular Volume 95, Mean Corpuscular Hemoglobin 27.7, Mean Corpuscular Hemoglobin Concent 29.2L, Red Cell Distribution Width 17.5H, Platelet Count 296, Mean Platelet Volume 4.9L, Neutrophils (%) (Auto) , Lymphocytes (%) (Auto) , Monocytes (%) (Auto) , Eosinophils (%) (Auto) , Basophils (%) (Auto) , Differential Total Cells Counted 100, Neutrophils % ( Manual) 67, Lymphocytes % (Manual) 17L, Monocytes % (Manual) 12H, Eosinophils % (Manual) 4H, Basophils % (Manual) 0, Band Neutrophils 0, Platelet Estimate Adequate, Platelet Morphology Normal, Hypochromasia 1+, Anisocytosis 1+, Sodium Level 146H, Potassium Level 4.7, Chloride Level 108H, Carbon Dioxide Level 23, Anion Gap 15, Blood Urea Nitrogen 36H, Creatinine 2.7H, Estimat Glomerular Filtration Rate , Glucose Level 164H, Calcium Level 8.8 Height (Feet): 5 Height (Inches): 0.00 Weight (Pounds): 170 General Appearance: lethargic Respiratory/Chest: decreased breath sounds Objective PE not changed BRIJESH CALDERON September 13, 2016 13:41
--- NOTE | 2016-09-13 15:10 | Pulmonology Progress Note ---
Assessment/Plan Problems: (1) Acute encephalopathy (2) ATN (acute tubular necrosis) (3) Hypoglycemia (4) Hyperkalemia (5) Severe anemia (6) Decubitus ulcer of buttock, stage 4 (7) UTI (lower urinary tract infection) (8) Heart transplant status Assessment/Plan K normal now toleraing diet wound care Subjective ROS Limited/Unobtainable: No Constitutional: Reports: no symptoms HEENT: Repors: no symptoms Respiratory: Reports: no symptoms Allergies: Coded Allergies: ADHESIVE TAPE (Verified Allergy, Unknown, Rash, 05/27/16) PLASTIC TAPE-COPIED FROM UNCODED SECTION PENICILLINS (Verified Allergy, Unknown, 06/20/16) PROCAINE (Verified Allergy, Unknown, Rash, 08/19/14) COPIED FRON UNCODED Objective Last 24 Hour Vital Signs Date Time Temp Pulse Resp B/P Pulse Ox O2 Delivery O2 Flow Rate FiO2 09/13/16 12:00 91 09/13/16 12:00 97.7 94 20 143/72 98 Room Air 09/13/16 08:04 97.7 90 18 144/82 97 Room Air 09/13/16 08:00 98 09/13/16 07:40 90 18 Room Air 21 09/13/16 04:00 97.7 89 19 149/71 95 Room Air 09/13/16 04:00 91 09/13/16 00:00 97.0 94 20 140/63 94 Room Air 09/13/16 00:00 93 09/12/16 20:00 98.4 94 19 109/59 95 Room Air 09/12/16 20:00 93 09/12/16 19:30 54 18 Room Air 21 09/12/16 16:00 98.4 96 19 110/66 99 Room Air 09/12/16 16:00 93 Intake and Output 09/12/16 09/13/16 19:00 07:00 Output Total 700 ml 580 ml Balance -700 ml -580 ml Output Urine Total 700 ml 580 ml General Appearance: WD/WN HEENT: normocephalic, anicteric Respiratory/Chest: chest wall non-tender, lungs clear, normal breath sounds Cardiovascular: normal rate Abdomen: normal bowel sounds, soft, non tender Extremities: no cyanosis Skin: no rash Neurologic/Psychiatric: centrifugal machine tender II-XII grossly normal Laboratory Tests 09/13/16 05:45: White Blood Count 5.5, Red Blood Count 3.09L, Hemoglobin 8.6L, Hematocrit 29.4L , Mean Corpuscular Volume 95, Mean Corpuscular Hemoglobin 27.7, Mean Corpuscular Hemoglobin Concent 29.2L, Red Cell Distribution Width 17.5H, Platelet Count 296, Mean Platelet Volume 4.9L, Neutrophils (%) (Auto) , Lymphocytes (%) (Auto) , Monocytes (%) (Auto) , Eosinophils (%) (Auto) , Basophils (%) (Auto) , Differential Total Cells Counted 100, Neutrophils % ( Manual) 67, Lymphocytes % (Manual) 17L, Monocytes % (Manual) 12H, Eosinophils % (Manual) 4H, Basophils % (Manual) 0, Band Neutrophils 0, Platelet Estimate Adequate, Platelet Morphology Normal, Hypochromasia 1+, Anisocytosis 1+, Sodium Level 146H, Potassium Level 4.7, Chloride Level 108H, Carbon Dioxide Level 23, Anion Gap 15, Blood Urea Nitrogen 36H, Creatinine 2.7H, Estimat Glomerular Filtration Rate , Glucose Level 164H, Calcium Level 8.8 Current Medications Medications (Trade) Dose Ordered Sig/Koffi Route PRN Reason Start Time Stop Time Status Last Admin Dose Admin Acetaminophen (Tylenol) 650 mg Q4H PRN ORAL T>100.5 09/08/16 15:45 10/08/16 15:44 Albuterol/ Ipratropium (DuoNeb 0.5-3(2.5)mg/3ml) 3 ml Q6H PRN HHN dyspnea 09/08/16 15:45 09/13/16 15:44 Amlodipine Besylate (Norvasc) 2.5 mg BIDPRN PRN ORAL SBP > 160 09/08/16 15:45 10/08/16 15:44 Clopidogrel Bisulfate (Plavix) 75 mg DAILY ORAL 09/09/16 09:00 10/09/16 08:59 09/13/16 08:55 Collagenase (Santyl) 1 applic DAILY TOPIC 09/10/16 09:00 10/10/16 08:59 09/13/16 08:58 Dextrose (Dextrose 50%) STAT PRN IV Hypoglycemia 09/08/16 15:45 10/08/16 15:44 09/09/16 07:10 Duloxetine HCl (Cymbalta) 30 mg DAILY ORAL 09/09/16 09:00 10/09/16 08:59 09/13/16 08:55 Epoetin Mars (Procrit (for non ESRD use)) 7,000 units MoFr@2100 SUBQ 09/13/16 21:00 10/13/16 20:59 Heparin Sodium (Porcine) (Heparin 5000 units/ml) 5,000 units EVERY 12 HOURS SUBQ 09/08/16 21:00 10/08/16 20:59 09/13/16 08:58 Insulin Aspart (NovoLOG) BEFORE MEALS AND HS SUBQ 09/08/16 21:00 10/08/16 20:59 09/13/16 12:21 Mirtazapine (Remeron) 15 mg BEDTIME ORAL 09/08/16 21:00 10/08/16 20:59 09/12/16 21:58 Morphine Sulfate (Morphine Sulfate) 1 mg Q4H PRN IVP PAIN 4-10 09/08/16 15:45 09/15/16 15:44 Mycophenolate Mofetil (Cellcept) 500 mg BID ORAL 09/08/16 18:00 10/08/16 17:59 09/13/16 08:55 Ondansetron HCl (Zofran) 4 mg Q6H PRN IVP Nausea & Vomiting 09/08/16 15:45 10/08/16 15:44 Pantoprazole (Protonix) 40 mg EVERY 12 HOURS ORAL 09/10/16 09:00 10/10/16 08:59 09/13/16 08:55 Polyethylene Glycol (Miralax) 17 gm HSPRN PRN ORAL Constipation 09/08/16 21:00 10/08/16 20:59 Pravastatin Sodium (Pravachol) 20 mg BEDTIME ORAL 09/08/16 21:00 10/08/16 20:59 09/12/16 21:58 Sodium Citrate (Bicitra) 30 ml TID ORAL 09/10/16 10:00 10/10/16 09:59 09/13/16 12:20 Tacrolimus (Prograf) 1 mg BID ORAL 09/08/16 18:00 10/08/16 17:59 09/13/16 08:55 Zolpidem Tartrate (Ambien) 5 mg HSPRN PRN ORAL Insomnia 09/08/16 21:00 10/08/16 20:59 AMADO SCHULER September 13, 2016 15:10
[2016-09-13 16:12] VITALS: BP 147/75
[2016-09-13] MEDS ORDERED: NS 275ml ONE (17:29)
[2016-09-13] MEDS ORDERED: Tubing IV Blood Pump IV ONE (17:29)
[2016-09-13] MEDS ORDERED: Epogen (for non ESRD use) SUBQ SCH ×2 (21:00)
[2016-09-14 08:37] LABS: CORTISOL LC 15.7 ug/dL (.); FREE TRIIODOTHYRONINE 2.5 pg/mL (2.0-4.4)
--- NOTE | 2016-09-15 09:55 | Discharge Summary ---
Discharge Summary Hospital Course Date of Admission Sep 08, 2016 at 14:46 Date of Discharge September 13, 2016 at 17:30 Admitting Diagnosis sepsis/hypoglycemia HPI Sherman Ralph is a 76 year old male who was admitted on Sep 08, 2016 at 14:46 for Sepsis/Hypoglycemia Hospital Course dc summary #[id number] Discharge Medications Continued Medications: Albuterol Sulfate (Ventolin Hfa) 18 Gm Hfa.aer.ad 2 PUFFS INH EVERY 6 HOURS PRN for Shortness of Breath, #18 GM 0 Refills Amlodipine Besylate (Norvasc) 2.5 Mg Tablet 2.5 MG ORAL BID PRN, #30 TAB use PRN only SBR above 155 Clopidogrel Bisulfate* (Plavix*) 75 Mg Tablet 75 MG ORAL DAILY, TAB Duloxetine Hcl* (Cymbalta*) 30 Mg Capsule.dr 30 MG ORAL DAILY, CAP Multivitamins* (Multivitamins*) 1 Tab Tab 1 TAB ORAL DAILY, #30 TAB Mycophenolate Mofetil (Cellcept) 250 Mg Cap 500 MG ORAL BID, CAP Pravastatin Sod* (Pravachol*) 20 Mg Tablet 20 MG ORAL BEDTIME, TAB Sitagliptin (Januvia) 50 Mg Tab 50 MG ORAL DAILY, TAB Tacrolimus (Prograf) 1 Mg Cap 1 MG ORAL BID, #10 CAP 0 Refills Discharge Discharge Disposition Patient was discharged to Home with home health services Discharge Diagnoses: [facility] ([facility])Alyssa NP September 15, 2016 09:55
--- NOTE | 2016-09-15 23:58 | Discharge Summary 2 SIG ---
DATE OF ADMISSION: 09/08/2016 DATE OF DISCHARGE: 09/13/2016 REASON FOR ADMISSION: The patient is a 76-year-old male with multiple chronic comorbidities including history of heart transplant, chronic kidney disease, bilateral amputee, diabetes, and multiple decubitus, presented from the wound care clinic. He became shaky and altered that was associated with a low blood sugar. The patient was brought to the emergency department for evaluation. The patient did not take any insulin on the day of presentation. The patient was afebrile and normotensive. D50 and glucagon given. Blood glucose is up to 138, however, potassium was 7.0. Hemoglobin 9.6, hematocrit 33.3. Chest x-ray was negative for acute cardiopulmonary disease. Lactic acid was within normal limits. No leukocytosis. BUN 42 and creatinine 3.1. The patient admitted for further management. The patient started on empiric antibiotics. The patient declined Kayexalate. The patient admitted to the telemetry for further management. ADMITTING DIAGNOSES: 1. Hypoglycemia. 2. Renal failure. 3. Hyperkalemia. 4. Multiple decubitus present on admission. HOSPITAL STAY: The patient admitted to the telemetry floor. Nephrology, Endocrinology, and Infectious Disease consult were requested. Blood culture negative. Urine culture, E. coli with colony count of 70 to 80 colonized as per Infectious Disease. Wound culture with Acinetobacter, enterococci, and Pseudomonas MDR also colonized as per Infectious Disease. Infectious Disease recommended to keep the patient, but the patient was initially on the antibiotics, then antibiotics discontinued. Infectious Disease recommended to keep off antibiotics. Easement Worker closely followed. Family refused Kayexalate due to the fear of diarrhea and has the potential of causing another decubitus. Subsequently, jr. systems administrator seen and evaluated the patient, recommended slow hydration, and Kayexalate. Renal ultrasound revealed no hydronephrosis, but increased bilateral echogenicity consistent with medical renal disease. The patient was on sodium citrate to correct low bicarbonate, which was corrected. Family declined Kayexalate. Bicitra helped with decrease in potassium. Potassium prior to discharge was 4.7, BUN 36, and creatinine 2.7. Supplemental oxygen and pulmonary toilet provided as needed. Pulse oximetry stable on room air. Cardiology followed the patient. The patient was continued on Plavix and statin. Blood pressure was managed with low dose of calcium-channel burton and was stable. The patient was on CellCept and Prograf. The Prograf level is stable. Diabetes Territory Manager seen and evaluated the patient. He recommended to hold all oral hypoglycemic while in the hospital, only sliding scale of insulin as needed. He plans to resume when the blood sugar is stable, only Januvia. The patient and were also counseled on combined risk of hypoglycemia if increased risk of is combining glyburide to his Lantus. and the patient both verbalized understanding. DVT and GI prophylaxes provided. Bowel regimen instituted. Wound care provided. The patient with multiple chronic decubitus present on admission. Wound care nurse seen and evaluated the patient. Follow up with wound clinic. Lipid panel stable. TSH within normal limits. The patient was stable for discharge. DISCHARGE DIAGNOSES: 1. Acute on chronic renal failure. 2. Acute hyperkalemia. 3. Status post heart transplant. 4. Diabetes mellitus with end-organ damage. 5. Recurrent episode of hypoglycemia. 6. Peripheral vascular disease. 7. Bilateral amputee. 8. Anemia, status post blood transfusion. Of note, the patient was given one unit of packed red blood cells. The patient is on Epogen at home, resumed here while was in the hospital. 9. Hypertension. 10. Constipation. 11. Multiple decubitus present on admission including left buttock stage IV, sacral stage IV, right trochanter stage IV, extending to left ischial tuberosity stage IV. 12. Left trochanter stage IV. Paper Core Machine Operator also followed the patient, no evidence of fluid overload. Continue current cardiac medications. Follow up with the primary doctor and commercial electrician. The patient is stable for discharge. DISCHARGE MEDICATIONS: See medication reconciliation list. DISCHARGE INSTRUCTIONS: The patient discharged home with home health services for wound care. Blood sugar and blood pressure management. Follow up with primary doctor. Sudarshan Hahn M.D. I have been assigned to dictate discharge summary on this account and I was not involved in the patient's management. Alyssa Montero N.P. (vanchtein) DR: SCOTTY JOB#: [id number] CC:
== END 2016-09-13 17:30 | disposition home or self-care (01) | DRG 682 ==
LOC: EMR 14:40 → 2E 14:46 → EDBEDREQ 16:16
PROC: 30233N1 Transfusion of Nonautologous Red Blood Cells into Peripheral Vein, Percutaneous Approach (ICD-10-PCS; principal; 2016-09-12)
DX: N17.0 Acute kidney failure with tubular necrosis (principal); G93.40 Encephalopathy, unspecified; L89.154 Pressure ulcer of sacral region, stage 4; L89.324 Pressure ulcer of left buttock, stage 4; L89.214 Pressure ulcer of right hip, stage 4; E11.649 Type 2 diabetes mellitus with hypoglycemia without coma; E11.21 Type 2 diabetes mellitus with diabetic nephropathy; Z94.1 Heart transplant status; N39.0 Urinary tract infection, site not specified; E87.5 Hyperkalemia; I12.9 Hypertensive chronic kidney disease with stage 1 through stage 4 chronic kidney disease, or unspecified chronic kidney disease; N18.9 Chronic kidney disease, unspecified; I73.9 Peripheral vascular disease, unspecified; Z89.9 Acquired absence of limb, unspecified; D64.9 Anemia, unspecified; Z88.0 Allergy status to penicillin; Z88.8 Allergy status to other drugs, medicaments and biological substances; Z79.4 Long term (current) use of insulin; Z79.02 Long term (current) use of antithrombotics/antiplatelets; B96.20 Unspecified Escherichia coli [E. coli] as the cause of diseases classified elsewhere; B95.2 Enterococcus as the cause of diseases classified elsewhere; B96.5 Pseudomonas (aeruginosa) (mallei) (pseudomallei) as the cause of diseases classified elsewhere; B96.89 Other specified bacterial agents as the cause of diseases classified elsewhere; Z89.612 Acquired absence of left leg above knee; Z89.611 Acquired absence of right leg above knee
CPT/HCPCS: 36415; 71010; 76775; 80048; 80053; 80061; 80197; 81001; 82436; 82533; 82550; 82607; 82728; 82746; 82962; 82977; 83036; 83540; 83550; 83605; 83735; 83880; 83930; 83935; 84100; 84133; 84300; 84439; 84443; 84481; 84484; 84550; 85007; 85025; 85610; 85651; 85730; 86140; 86850; 86900; 86901; 86920; 87040; 87070; 87086; 87181; 87205; 89050; 93005; 94664; J1815

== ENCOUNTER 2016-09-20 15:30 | Outpatient (RCR) | payer MEDICARE, OTHER | END 2016-10-13 | disposition home or self-care (01) | LOC: WCC 15:30 | DX: L89.154 Pressure ulcer of sacral region, stage 4 (principal); L89.314 Pressure ulcer of right buttock, stage 4; L89.214 Pressure ulcer of right hip, stage 4; L89.894 Pressure ulcer of other site, stage 4; L89.224 Pressure ulcer of left hip, stage 4; L89.320 Pressure ulcer of left buttock, unstageable; Z88.8 Allergy status to other drugs, medicaments and biological substances; E11.9 Type 2 diabetes mellitus without complications; Z89.612 Acquired absence of left leg above knee; Z94.1 Heart transplant status; Z79.82 Long term (current) use of aspirin; Z79.02 Long term (current) use of antithrombotics/antiplatelets | CPT/HCPCS: 11043; 11044; 11046; 11047 ==

== ENCOUNTER 2016-10-25 14:00 | Outpatient (RCR) | payer MEDICARE, OTHER ==
[~2016-10-25] VITALS: Ht 167.6 cm; Wt 84.4 kg
[2016-11-05] MEDS ORDERED: Lidocaine HCl 2% Jelly 5ml Tube TOPIC ONE (08:00)
== END 2016-11-12 | disposition home or self-care (01) ==
LOC: WCC 14:00
DX: L89.154 Pressure ulcer of sacral region, stage 4 (principal); L89.314 Pressure ulcer of right buttock, stage 4; L89.214 Pressure ulcer of right hip, stage 4; L89.894 Pressure ulcer of other site, stage 4; L89.224 Pressure ulcer of left hip, stage 4; L98.492 Non-pressure chronic ulcer of skin of other sites with fat layer exposed; Z94.1 Heart transplant status; E11.9 Type 2 diabetes mellitus without complications; Z89.612 Acquired absence of left leg above knee; Z79.02 Long term (current) use of antithrombotics/antiplatelets; Z79.82 Long term (current) use of aspirin; Z88.8 Allergy status to other drugs, medicaments and biological substances
CPT/HCPCS: 11043; 11044; 11046; 11047; 82962